=== PATIENT | female | born 1960 | race Two or more races ===

== ENCOUNTER 2020-10-19 13:06 | Outpatient (REF) | payer OTHER, SELFPAY ==
--- NOTE | ~2020-10-19 | XR_ITS ---
EXAMINATION: XR SHOULDER, RIGHT CLINICAL INFORMATION: Shoulder lesion COMPARISON: None TECHNIQUE: AP external rotation, Grashey, scapular Y, and axillary views of the right shoulder. FINDINGS: The bones and soft tissues are normal. No fracture. Glenohumeral and acromioclavicular alignment is anatomic with normal joint space. There is faint soft tissue calcification adjacent to the greater tuberosity. XR/XR shoulder RT min 2V IMPRESSION: Faint soft tissue calcification adjacent to the greater tuberosity otherwise unremarkable exam.
== END 2020-10-19 13:07 | disposition home or self-care (01) ==
LOC: HO.XRAY 13:06
PROVIDERS: PCP Internal Medicine; Visit Provider Internal Medicine
DX: M75.81 Other shoulder lesions, right shoulder (principal)
CPT/HCPCS: 73030

== ENCOUNTER 2020-12-20 14:37 | Outpatient (RCR) | payer OTHER, SELFPAY ==
[2020-12-20 15:14] VITALS: BP 170/80
== END 2021-01-13 11:26 | disposition other institution (70) ==
LOC: HO.PT 14:37
PROVIDERS: PCP Internal Medicine; Visit Provider Internal Medicine
DX: M75.81 Other shoulder lesions, right shoulder (principal)
CPT/HCPCS: 97112; 97161

== ENCOUNTER 2020-12-28 11:21 | Emergency (ER) | payer OTHER, SELFPAY ==
[2020-12-28] VITALS (7 sets, daily range): BP systolic 137–174; BP diastolic 60–82; PULSE 79–86; RESP 16–17; TEMP 36.9; O2SAT 98–100; BMI 21.2
--- NOTE | ~2020-12-28 | US_ITS ---
EXAMINATION: US ABDOMEN LIMITED CLINICAL INFORMATION: Right upper quadrant epigastric pain, nausea, vomiting. COMPARISON: None TECHNIQUE: Real-time imaging of the right upper quadrant abdominal viscera. FINDINGS: PANCREAS: The visualized pancreas is normal in size and contour and echogenicity. There is no pancreatic ductal distention or visible retroperitoneal effusion. Portion pancreatic head and tail obscured by bowel gas and not imaged. LIVER: The liver is normal in size and smooth in contour. The hepatic parenchyma areas increased in echogenicity suggesting hepatic steatosis. There is no focal hepatic parenchymal lesion or intrahepatic ductal dilatation. Doppler shows portal flow towards the liver. GALLBLADDER: The near gallbladder wall is partly visible and within normal caliber. The near side gallbladder lumen is partly visible. The remainder of the gallbladder fossa shows scattered specular echoes with posterior shadowing. Findings suggest stone filled gallbladder. COMMON BILE DUCT: Normal in caliber measuring 0.5 cm in diameter. No visible ductal calculus. Distal duct is partly obscured by bowel gas. RIGHT KIDNEY: Normal. No hydronephrosis. No renal calculi or focal parenchymal lesions. The kidney measures 10.6 cm in maximum dimension. FREE FLUID: None. US/US abdomen limited IMPRESSION: Challenging sonographic evaluation of gallbladder. Findings suggest stone filled gallbladder. No ductal dilatation or ascites right upper quadrant.
--- NOTE | ~2020-12-28 | XR_ITS ---
EXAMINATION: XR CHEST CLINICAL INFORMATION: Chest pain COMPARISON: None TECHNIQUE: Portable upright AP view of the chest was obtained. FINDINGS: Lungs are clear. There is no pneumothorax, pleural reaction, airspace opacity, or effusion. The costophrenic sulci are clear. The heart is normal in size. The vascularity is normal. The hilar and mediastinal contours are normal. No definite visible acute bony abnormality. There is questionable fracture line or callus formation. This could represent old healed fracture. Recommend correlation with patient's symptoms and clinical exam. No free air beneath the diaphragms. XR/XR chest 1V IMPRESSION: 1. Lungs clear. No pneumothorax, infiltrate, or effusion. 2. No visible acute bony abnormality. Question healed left anterior lateral 5th/6th rib fracture. Clinically correlate.
--- NOTE | 2020-12-28 11:48 | ECG_ITS ---
Test Reason : CHEST PAIN Blood Pressure : / mmHG Vent. Rate : 079 BPM Atrial Rate : 079 BPM P-R Int : 150 ms QRS Dur : 076 ms QT Int : 378 ms P-R-T Axes : -04 012 035 degrees QTc Int : 433 ms Normal sinus rhythm Normal ECG No previous ECGs available Referred By: Generic ED Physician Electronically Signed By:Jair Irby
--- NOTE | 2020-12-28 11:56 | PC.NURSE ---
deay in ekg due to ekg being in use
[2020-12-28 11:59] LABS: MANUAL DIFF FLAG NO
[2020-12-28 12:02] LABS: Basophils Absolute Auto 0.1 X10*3/uL (0.0-0.2); Basophils Percent Auto 0.9 % (0-2); Eosinophils Absolute Auto 0.8 X10*3/uL (0.0-0.4); Eosinophils Percent Auto 7.5 % (0-4); Hematocrit 35.1 % (37-47); Hemoglobin 11.1 g/dl (12.0-16.0); Imm Gran Abs Auto 0.03 X10*3/uL (0.00-0.03); Imm Gran Pct Auto 0.3 % (0.0-0.4); Lymphocytes Absolute Auto 3.3 X10*3/uL (1.2-4.9); Lymphocytes Percent Auto 31.5 % (20-40); Mean Corpuscular HGB Conc 31.6 g/dl (31.0-35.0); Mean Corpuscular Hemoglobin 26.1 pg (27.0-33.0); Mean Corpuscular Volume 82.4 fL (80-98); Mean Platelet Volume 9.7 fL (9.4-12.3); Monocytes Absolute Auto 0.6 X10*3/uL (0.1-1.2); Monocytes Percent Auto 5.7 % (2-11); Neutrophils Absolute Auto 5.6 X10*3/uL (2.0-8.3); Neutrophils Percent Auto 54.1 % (45-73); Platelet Count 516 X10*3/uL (160-400); Red Blood Count 4.26 X10*6/uL (4.20-5.50); Red Cell Distribution Width 13.1 % (11.0-16.0); White Blood Count 10.3 X10*3/uL (4.8-10.8)
[2020-12-28 12:29] LABS: Anion Gap 14 (12-20); Blood Urea Nitrogen 24 mg/dL (9-16); Calcium 10.4 mg/dL (8.4-10.2); Carbon Dioxide 27 mmol/L (22-29); Chloride 100 mmol/L (96-108); Creatinine Clr Calc Pharmacy 54.2; Estimated Glomerular Filt Rate > 60; Glucose Random 282 mg/dL (60-115); Potassium 4.8 mmol/L (3.3-5.1); Sodium 136 mmol/L (135-145)
[2020-12-28 12:35] LABS: Troponin-I High Sensitivity < 3.5 ng/L (<3.5-17.0)
[2020-12-28] MEDS: ondansetron HCL 4 MG/2 ML VIAL IVPUSH (13:26)
[2020-12-28 13:36] LABS: Alanine Aminotransferase 12 U/L (0-31); Albumin Level 4.3 g/dL (3.5-5.0); Alkaline Phosphatase 98 U/L (39-117); Aspartate Amino Transferase 13 U/L (5-31); Bilirubin Direct 0.2 mg/dL (0.0-0.5); Bilirubin Total 0.5 mg/dL (0.0-1.0); Lipase 39 U/L (8-78); Magnesium 1.5 mg/dL (1.6-2.6); Total Protein 7.7 g/dL (6.5-8.0)
--- NOTE | 2020-12-28 14:39 | ED_ITS ---
HPI - Chest Pain General Chief Complaint: Chest Pain <KEANU Maria Last Filed: 12/28/20 17:37> Stated Complaint: hbp, hbs, vomiting <KEANU Maria Last Filed: 12/28/20 17:37> Time Seen by Provider: 12/28/20 12:51 <KEANU Maria Last Filed: 12/28/20 17:37> Source: patient <KEANU Maria Last Filed: 12/28/20 17:37> Mode of arrival: ambulatory <KEANU Maria Last Filed: 12/28/20 17:37> History of Present Illness HPI narrative: 60-year-old female with no significant past medical history presenting to the ED complaining chest tightness, epigastric abdominal pain, nausea, vomiting, generalized fatigue/weakness since yesterday. Reports multiple episodes of emesis after eating. Denies fever, chills, SOB, diarrhea/constipation, LE edema, recent travel, dysuria, hematuria, history of blood clots <KEANU Maria Last Filed: 12/28/20 17:37> MD complaint: chest pain <KEANU Maria Last Filed: 12/28/20 17:37> Related Data Home Medications: Home Medications Medication Instructions Recorded Confirmed acetaminophen 650 mg PO Q8H PRN 12/28/20 12/28/20 albuterol sulfate [Ventolin HFA] 2 puff INHALATION Q4-6H PRN 12/28/20 12/28/20 atorvastatin 80 mg PO DAILY 12/28/20 12/28/20 fluoxetine 40 mg PO QAM 12/28/20 12/28/20 fluticasone propionate 1 spray INTRANASAL DAILY 12/28/20 12/28/20 glipizide 10 mg PO BID 12/28/20 12/28/20 metformin 1,000 mg PO BID 12/28/20 12/28/20 prazosin 1 mg PO BEDTIME 12/28/20 12/28/20 <KEANU Maria Last Filed: 12/28/20 17:37> Allergies/Adverse Reactions: Allergies Allergy/AdvReac Type Severity Reaction Status Date / Time No Known Allergies Allergy Verified 12/28/20 11:48 [No Known Allergies*] <KEANU Maria - Last Filed: 12/28/20 17:37> Review of Systems Review of Systems: Constitutional: No Fever, No Chills, No Night Sweats, + Fatigue, + Malaise ENT/Mouth: No Ear Pain,No Sinus Pain, No sore throat, No Rhinorrhea Eyes: No Eye Pain, No Vision Changes Cardiovascular: + Chest Pain, No SOB, No Dyspnea on Exertion, No Orthopnea, No Edema Respiratory: No Cough, No Sputum, No Dyspnea Gastrointestinal: +Nausea, + Vomiting, No Diarrhea, No Constipation, + Abdominal pain Genitourinary: No Dysuria, No Urinary Frequency, No Hematuria, No Flank Pain Musculoskeletal: No joint pain, No Myalgias, No Joint Swelling Skin: No rash Neuro: + Weakness, No Numbness, No Paresthesias, No Headache <KEANU Maria Last Filed: 12/28/20 17:37> Yes all other systems are reviewed and are negative <KEANU Maria Last Filed: 12/28/20 17:37> [facility] Past Medical History Attestation statement: The following information was validated with the patient. <KEANU Maria - Last Filed: 12/28/20 17:37> Social History Social History: Social History Alcohol intake: current Alcohol intake frequency: holidays/special occasions only Patient Tobacco Use Status: Never used Tobacco Use of substances other than those prescribed or required for medical reasons: No Advance Directives: No Advance Directives Information Provided: No Patient : No <KEANU Maria Last Filed: 12/28/20 17:37> Physical Exam Vital Signs: Vital Signs: Last Vital Signs Temp 98.4 F 12/28/20 18:09 Pulse 82 12/28/20 18:09 Resp 17 12/28/20 18:09 BP 150/67 H 12/28/20 18:09 Pulse Ox 98 12/28/20 18:09 Body Mass Index 21.2 <KEANU Maria Last Filed: 12/28/20 17:37> Vital Signs: Last Vital Signs Temp 98.4 F 12/28/20 18:09 Pulse 82 12/28/20 18:09 Resp 17 12/28/20 18:09 BP 150/67 H 12/28/20 18:09 Pulse Ox 98 12/28/20 18:09 Body Mass Index 21.2 <ZaidaMARICARMEN Valenzuela - Last Filed: 12/28/20 19:01> Const: General: cooperative, healthy appearing and no acute distress <KEANU Maria - Last Filed: 12/28/20 17:37> Orientation/consciousness: patient oriented x3 <KEANU Maria - Last Filed: 12/28/20 17:37> Limitations: no limitations <KEANU Maria - Last Filed: 12/28/20 17:37> HENMT: Head: Yes normal to inspection <KEANU Maria - Last Filed: 12/28/20 17:37> Ears: hearing grossly normal bilaterally <KEANU Maria - Last Filed: 17:37> General nose exam: Normal external nose present <KEANU Maria - Last Filed: 12/28/20 17:37> Face and sinus: Yes normal facial exam <KEANU Maria - Last Filed: 12/28/20 17:37> Eyes: General: appearance normal, both eyes and all related structures <Fernanda Sherman PA - Last Filed: 12/28/20 17:37> EOM: EOMs intact bilaterally <KEANU Maria - Last Filed: 12/28/20 17:37> Neck: Neck: Yes normal visual inspection and Yes no meningeal signs <KEANU Maria - Last Filed: 12/28/20 17:37> Resp: Effort & Inspection: normal respiratory effort <KEANU Maria - Last Filed: 12/28/20 17:37> Auscultation: clear to auscultation bilaterally <Fernanda Sherman PA - Last Filed: 12/28/20 17:37> Cardio: Rate: regular rate <KEANU Maria - Last Filed: 12/28/20 17:37> Heart sounds: S1 normal heart sound present and S2 normal heart sound present <KEANU Maria - Last Filed: 12/28/20 17:37> GI: Inspection: Yes normal to inspection <KEANU Maria - Last Filed: 12/28/20 17:37> Palpation (GI): Soft to palpation, Tenderness to palpation present (GI) in the epigastrum and in the RUQ, no guarding and not rigid <KEANU Maria - Last Filed: 12/28/20 17:37> : General: Yes no CVA tenderness <KEANU Maria - Last Filed: 12/28/20 17:37> Back/Spine/Pelvis: Back: no CVA tenderness <KEANU Maria - Last Filed: 12/28/20 17:37> Skin: Rashes: no rashes <KEANU Maria - Last Filed: 12/28/20 17:37> Wounds: no wounds <KEANU Maria - Last Filed: 12/28/20 17:37> Neuro: General: patient oriented x3 and no meningeal signs <KEANU Maria - Last Filed: 12/28/20 17:37> Gait exam (Neuro): Normal gait present <KEANU Maria - Last Filed: 12/28/20 17:37> Extrem: General: Yes normal to inspection and Yes no pedal edema <KEANU Maria Last Filed: 12/28/20 17:37> Course Course Course Narrative: -no leukocytosis, H&H stable, BUN 24, magnesium 1.5 p.o. repletion given, troponin negative XR chest 1V IMPRESSION: 1. Lungs clear. No pneumothorax, infiltrate, or effusion. 2. No visible acute bony abnormality. Question healed left anterior lateral 5th/6th rib fracture. Clinically correlate. -1644--US abdomen limited IMPRESSION: Challenging sonographic evaluation of gallbladder. Findings suggest stone filled gallbladder. No ductal dilatation or ascites right upper quadrant. >> surgery Dr. Feliz consulted -1700--ED care transferred to KEANU Hernandez pending p.o. challenge -Dr. Feliz evaluated patient in the ED, will p.o. challenge if patient tolerates plan to DC home and have follow-up outpatient office in the next couple days <KEANU Maria - Last Filed: 12/28/20 17:37> Reevaluation(s) Reevaluation #1: Patient tolerating p.o., will discharge as per KEANU Harden <Zaida Cuellar PA-C - Last Filed: 12/28/20 19:01> Time: 19: <Zaida Cuellar PA-C - Last Filed: 12/28/20 19:01> MDM - Chest Pain MDM Narrative Medical decision making narrative: 60-year-old female with no significant past medical history presenting to the ED complaining chest tightness, epigastric abdominal pain, nausea, vomiting, generalized fatigue/weakness since yesterday. On exam vital signs stable, NAD, well appearing, lungs CTA, abdomen soft with epigastric/RUQ TTP, no rebound or guarding, no CVAT, no LE edema or calf tenderness. Rule out ACS vs cholecystitis/cholelithiasis vs pancreatitis. Lower concern for appendicitis/ diverticulitis or UTI. Unlikely PE Plan: EKG, labs, UA, CXR, abdomen ultrasound, reassess <KEANU Maria - Last Filed: 12/28/20 17:37> Lab Data Result diagrams: : 12/28/20 11:52 12/28/20 11:52 <KEANU Maria - Last Filed: 12/28/20 17:37> Labs: Lab Results 12/28/20 12/28/20 12/28/20 Range/Units 11:52 11:52 11:52 WBC 10.3 (4.8-10.8) X10*3/uL RBC 4.26 (4.20-5.50) X10*6/uL Hgb 11.1 L (12.0-16.0) g/dl Hct 35.1 L (37-47) % MCV 82.4 (80-98) fL MCH 26.1 L (27.0-33.0) pg MCHC 31.6 (31.0-35.0) g/dl RDW 13.1 (11.0-16.0) % Plt Count 516 H (160-400) X10*3/uL MPV 9.7 (9.4-12.3) fL Immature Gran % (Auto) 0.3 (0.0-0.4) % Neut % (Auto) 54.1 (45-73) % Lymph % (Auto) 31.5 (20-40) % [place] % (Auto) 5.7 (2-11) % Eos % (Auto) 7.5 H (0-4) % Baso % (Auto) 0.9 (0-2) % Lymph # (Auto) 3.3 (1.2-4.9) X10*3/uL [place] # (Auto) 0.6 (0.1-1.2) X10*3/uL Eos # (Auto) 0.8 H (0.0-0.4) X10*3/uL Baso # (Auto) 0.1 (0.0-0.2) X10*3/uL Abs Immat Gran (auto) 0.03 (0.00-0.03) X10*3/uL Absolute Neuts (auto) 5.6 (2.0-8.3) X10*3/uL Absolute Nucleated RBC 0.000 (0.0-0.012) X10*3/uL Nucleated RBC % (auto) 0.0 (0.0-0.2) /100WBC Sodium 136 (135-145) mmol/L Potassium 4.8 (3.3-5.1) mmol/L Chloride 100 (96-108) mmol/L Carbon Dioxide 27 (22-29) mmol/L Anion Gap 14 (12-20) BUN 24 H (9-16) mg/dL Creatinine 0.90 (0.5-1.4) mg/dL Estim Creat Clear Calc 54.2 Estimated GFR > 60 Random Glucose 282 H (60-115) mg/dL Calcium 10.4 H (8.4-10.2) mg/dL Magnesium 1.5 L (1.6-2.6) mg/dL Total Bilirubin 0.5 (0.0-1.0) mg/dL Direct Bilirubin 0.2 (0.0-0.5) mg/dL AST 13 (5-31) U/L ALT 12 (0-31) U/L Alkaline Phosphatase 98 (39-117) U/L Troponin I High Sens < 3.5 (<3.5-17.0) ng/L Total Protein 7.7 (6.5-8.0) g/dL Albumin 4.3 (3.5-5.0) g/dL Lipase 39 (8-78) U/L COVID-19 (K[facility]) (Negative) COVID-19 Clin Com 12/28/20 12/28/20 Range/Units 15:52 18:32 WBC (4.8-10.8) X10*3/uL RBC (4.20-5.50) X10*6/uL Hgb (12.0-16.0) g/dl Hct (37-47) % MCV (80-98) fL MCH (27.0-33.0) pg MCHC (31.0-35.0) g/dl RDW (11.0-16.0) % Plt Count (160-400) X10*3/uL MPV (9.4-12.3) fL Immature Gran % (Auto) (0.0-0.4) % Neut % (Auto) (45-73) % Lymph % (Auto) (20-40) % [place] % (Auto) (2-11) % Eos % (Auto) (0-4) % Baso % (Auto) (0-2) % Lymph # (Auto) (1.2-4.9) X10*3/uL [place] # (Auto) (0.1-1.2) X10*3/uL Eos # (Auto) (0.0-0.4) X10*3/uL Baso # (Auto) (0.0-0.2) X10*3/uL Abs Immat Gran (auto) (0.00-0.03) X10*3/uL Absolute Neuts (auto) (2.0-8.3) X10*3/uL Absolute Nucleated RBC (0.0-0.012) X10*3/uL Nucleated RBC % (auto) (0.0-0.2) /100WBC Sodium (135-145) mmol/L Potassium (3.3-5.1) mmol/L Chloride (96-108) mmol/L Carbon Dioxide (22-29) mmol/L Anion Gap (12-20) BUN (9-16) mg/dL Creatinine (0.5-1.4) mg/dL Estim Creat Clear Calc Estimated GFR Random Glucose (60-115) mg/dL Calcium (8.4-10.2) mg/dL Magnesium (1.6-2.6) mg/dL Total Bilirubin (0.0-1.0) mg/dL Direct Bilirubin (0.0-0.5) mg/dL AST (5-31) U/L ALT (0-31) U/L Alkaline Phosphatase (39-117) U/L Troponin I High Sens (<3.5-17.0) ng/L Total Protein (6.5-8.0) g/dL Albumin (3.5-5.0) g/dL Lipase (8-78) U/L COVID-19 ([facility]) Negative Negative (Negative) COVID-19 Clin Com See Note See Note <KEANU Maria - Last Filed: 12/28/20 17:37> Lab Results 12/28/20 12/28/20 12/28/20 Range/Units 11:52 11:52 11:52 WBC 10.3 (4.8-10.8) X10*3/uL RBC 4.26 (4.20-5.50) X10*6/uL Hgb 11.1 L (12.0-16.0) g/dl Hct 35.1 L (37-47) % MCV 82.4 (80-98) fL MCH 26.1 L (27.0-33.0) pg MCHC 31.6 (31.0-35.0) g/dl RDW 13.1 (11.0-16.0) % Plt Count 516 H (160-400) X10*3/uL MPV 9.7 (9.4-12.3) fL Immature Gran % (Auto) 0.3 (0.0-0.4) % Neut % (Auto) 54.1 (45-73) % Lymph % (Auto) 31.5 (20-40) % [place] % (Auto) 5.7 (2-11) % Eos % (Auto) 7.5 H (0-4) % Baso % (Auto) 0.9 (0-2) % Lymph # (Auto) 3.3 (1.2-4.9) X10*3/uL [place] # (Auto) 0.6 (0.1-1.2) X10*3/uL Eos # (Auto) 0.8 H (0.0-0.4) X10*3/uL Baso # (Auto) 0.1 (0.0-0.2) X10*3/uL Abs Immat Gran (auto) 0.03 (0.00-0.03) X10*3/uL Absolute Neuts (auto) 5.6 (2.0-8.3) X10*3/uL Absolute Nucleated RBC 0.000 (0.0-0.012) X10*3/uL Nucleated RBC % (auto) 0.0 (0.0-0.2) /100WBC Sodium 136 (135-145) mmol/L Potassium 4.8 (3.3-5.1) mmol/L Chloride 100 (96-108) mmol/L Carbon Dioxide 27 (22-29) mmol/L Anion Gap 14 (12-20) BUN 24 H (9-16) mg/dL Creatinine 0.90 (0.5-1.4) mg/dL Estim Creat Clear Calc 54.2 Estimated GFR > 60 Random Glucose 282 H (60-115) mg/dL Calcium 10.4 H (8.4-10.2) mg/dL Magnesium 1.5 L (1.6-2.6) mg/dL Total Bilirubin 0.5 (0.0-1.0) mg/dL Direct Bilirubin 0.2 (0.0-0.5) mg/dL AST 13 (5-31) U/L ALT 12 (0-31) U/L Alkaline Phosphatase 98 (39-117) U/L Troponin I High Sens < 3.5 (<3.5-17.0) ng/L Total Protein 7.7 (6.5-8.0) g/dL Albumin 4.3 (3.5-5.0) g/dL Lipase 39 (8-78) U/L COVID-19 ([facility]) (Negative) COVID-19 Clin Com 12/28/20 12/28/20 Range/Units 15:52 18:32 WBC (4.8-10.8) X10*3/uL RBC (4.20-5.50) X10*6/uL Hgb (12.0-16.0) g/dl Hct (37-47) % MCV (80-98) fL MCH (27.0-33.0) pg MCHC (31.0-35.0) g/dl RDW (11.0-16.0) % Plt Count (160-400) X10*3/uL MPV (9.4-12.3) fL Immature Gran % (Auto) (0.0-0.4) % Neut % (Auto) (45-73) % Lymph % (Auto) (20-40) % [place] % (Auto) (2-11) % Eos % (Auto) (0-4) % Baso % (Auto) (0-2) % Lymph # (Auto) (1.2-4.9) X10*3/uL [place] # (Auto) (0.1-1.2) X10*3/uL Eos # (Auto) (0.0-0.4) X10*3/uL Baso # (Auto) (0.0-0.2) X10*3/uL Abs Immat Gran (auto) (0.00-0.03) X10*3/uL Absolute Neuts (auto) (2.0-8.3) X10*3/uL Absolute Nucleated RBC (0.0-0.012) X10*3/uL Nucleated RBC % (auto) (0.0-0.2) /100WBC Sodium (135-145) mmol/L Potassium (3.3-5.1) mmol/L Chloride (96-108) mmol/L Carbon Dioxide (22-29) mmol/L Anion Gap (12-20) BUN (9-16) mg/dL Creatinine (0.5-1.4) mg/dL Estim Creat Clear Calc Estimated GFR Random Glucose (60-115) mg/dL Calcium (8.4-10.2) mg/dL Magnesium (1.6-2.6) mg/dL Total Bilirubin (0.0-1.0) mg/dL Direct Bilirubin (0.0-0.5) mg/dL AST (5-31) U/L ALT (0-31) U/L Alkaline Phosphatase (39-117) U/L Troponin I High Sens (<3.5-17.0) ng/L Total Protein (6.5-8.0) g/dL Albumin (3.5-5.0) g/dL Lipase (8-78) U/L COVID-19 ([facility]) Negative Negative (Negative) COVID-19 Clin Com See Note See Note <Zaida Cuellar PA-C - Last Filed: 12/28/20 19:01> Discharge Plan Discharge Clinical Impression: Cholelithiasis <KEANU Maria - Last Filed: 12/28/20 17:37> Patient Disposition: Home, Self-Care <KEANU Maria - Last Filed: 12/28/20 17:37> Instructions: Gallstones (ED) <KEANU Maria - Last Filed: 12/28/20 17:37> Additional Instructions: You have a gallbladder full of stones. It is important for you to follow- up with a general surgeon. If her symptoms persist or worsen, pain becomes unbearable, you are unable to eat or drink, or developed fever please return to the ED immediately. You need to follow-up with a general surgeon in the next couple days. Tiene la ves?cula biliar llena de piedras. Es importante que realice un seguimiento con un cirujano general. Si camilla s?ntomas persisten o empeoran, el dolor se vuelve insoportable, no puede comer ni beber, o tiene fiebre, regrese al servicio de urgencias de inmediato. Debe hacer un seguimiento con un cirujano general en los pr?ximos d?as. <KEANU Maria - Last Filed: 12/28/20 17:37> Prescriptions: No Action fluoxetine 40 mg capsule 40 mg PO QAM RF: 0 atorvastatin 80 mg tablet 80 mg PO DAILY RF: 0 prazosin 1 mg capsule 1 mg PO BEDTIME RF: 0 glipizide 10 mg tablet 10 mg PO BID RF: 0 acetaminophen 650 mg tablet extended release 650 mg PO Q8H PRN (Reason: Pain) RF: 0 metformin 1,000 mg tablet 1,000 mg PO BID RF: 0 albuterol sulfate [Ventolin HFA] 90 mcg/actuation HFA aerosol inhaler 2 puff inhalation Q4-6H PRN (Reason: Shortness Of Breath) RF: 0 fluticasone propionate 50 mcg/actuation spray,suspension 1 spray intranasal DAILY RF: 0 <KEANU Maria Last Filed: 12/28/20 17:37> Referrals: Fausto Feliz MD [Physician] - 2 days <EKANU Maria - Last Filed: 12/28/20 17:37>
[2020-12-28] MEDS: Lidocaine HCl Viscous 2 % 15 ML SOLUTION MUCOUS MEM (15:35)
[2020-12-28] MEDS: Magnesium Hydrox/Alum Hydrox 30 ML ORAL.SUSP PO (15:35)
[2020-12-28] MEDS: Magnesium Oxide 400 MG TABLET PO (15:35)
[2020-12-28] MEDS: Famotidine/PF 20 MG/2 ML VIAL IVPUSH (15:35)
[2020-12-28] MEDS: 0.9 % Sodium Chloride 1,000 ML 999 ML IVCONT (15:36)
[2020-12-28 16:16] LABS: COVID-19 Test Negative (Negative)
--- NOTE | 2020-12-28 17:41 | HE.PHANOTE ---
Pharmacy Consult ? Medication Reconciliation Pharmacy has completed the medication reconciliation and the following issue requires provider intervention: the patient states that she takes the prazosin about 3 times a week depending on how she feels. She also states that she takes her atorvastatin every other day because she doesn't feel like taking it. Angella Vigil, PharmD [phone]
[2020-12-28 18:51] LABS: COVID-19 Test Negative (Negative); IDNOW Serial# 9DD0AD1C
== END 2020-12-28 19:42 | disposition home or self-care (01) ==
PROVIDERS: Physician Assistant; Emergency Provider Internal Medicine; PCP Internal Medicine
DX: K80.00 Calculus of gallbladder with acute cholecystitis without obstruction (principal); R07.9 Chest pain, unspecified; R11.10 Vomiting, unspecified; R10.13 Epigastric pain; Z20.822 Contact with and (suspected) exposure to COVID-19; T46.6X6A Underdosing of antihyperlipidemic and antiarteriosclerotic drugs, initial encounter; Z91.128 Patient's intentional underdosing of medication regimen for other reason; Y92.009 Unspecified place in unspecified non-institutional (private) residence as the place of occurrence of the external cause; E11.9 Type 2 diabetes mellitus without complications; I10 Essential (primary) hypertension; Z79.84 Long term (current) use of oral hypoglycemic drugs; Z79.02 Long term (current) use of antithrombotics/antiplatelets; Z79.899 Other long term (current) drug therapy
CPT/HCPCS: 36415; 71045; 76705; 80048; 80076; 83690; 83735; 84484; 85025; 87635; 93005; 96361; 96374; 96375; 99285; J2405

== ENCOUNTER → 2020-12-29 10:07 | Outpatient (BNVA) | payer OTHER, SELFPAY | PROVIDERS: PCP Internal Medicine; Referring Provider Internal Medicine; Visit Provider Surgery | DX: K80.00 Calculus of gallbladder with acute cholecystitis without obstruction (principal) | CPT/HCPCS: 99202 ==

== ENCOUNTER 2021-01-11 09:13 | Day surgery (SDC) | payer OTHER, SELFPAY ==
[2021-01-04 20:17] VITALS: BMI 21.7
--- NOTE | 2021-01-09 12:57 | HO.ANESPROP2 ---
Documented by User: Ericka Dotson 01/09/21 12:58 HPI - Anesthesia Eval Consult details Narrative: 60yo F for Cholecystectomy Laparoscopic,poss open PMFSH Active Problems Active Problems: All Active Problems (Updated 01/04/21 @ 20:17 by Katiuska Mathews RN) Cholecystitis, acute with cholelithiasis (Acute) Past Medical History Medical History Arthritis Asthma Back pain Depression Diabetes mellitus Hypercholesterolemia Peripheral neuropathy Family History Family History Father Lung cancer Prostate cancer Emphysema lung Surgical History Surgical History H/O tubal ligation History of colonoscopy Social History Social History Alcohol intake: current Alcohol intake frequency: holidays/special occasions only Patient Tobacco Use Status: Never used Tobacco Use of substances other than those prescribed or required for medical reasons: No Are you DNR?: No Advance Directives: No Advance Directives Information Provided: No Advance Directives on File: No Meds Allergies Allergy/AdvReac Type Severity Reaction Status Date / Time No Known Allergies Allergy Verified 01/04/21 20:15 [No Known Allergies*] Home Medications Medication Instructions Recorded Confirmed Last Taken Type acetaminophen 650 mg PO Q8H PRN 12/28/20 01/04/21 12/27/20 History albuterol sulfate [Ventolin HFA] 2 puff INHALATION Q4-6H PRN 12/28/20 01/04/21 12/24/20 History atorvastatin 80 mg PO DAILY 12/28/20 01/04/21 Unknown History fluoxetine 40 mg PO QAM 12/28/20 01/04/21 12/27/20 History fluticasone propionate 1 spray INTRANASAL DAILY 12/28/20 01/04/21 Unknown History glipizide 10 mg PO BID 12/28/20 01/04/21 12/27/20 History metformin 1,000 mg PO BID 12/28/20 01/04/21 12/27/20 History prazosin 1 mg PO BEDTIME 12/28/20 01/04/21 Unknown History ondansetron HCl 4 mg tablet 4 mg PO Q4-6H PRN 12/29/20 12/29/20 Unknown History Exam Exam Date and Time: January 09, 2021 1257 Height,Weight and Vital Signs: Height 5 ft 3 in Weight 55.792 kg Pertinent Lab Results Pertinent Lab Results: Laboratory Tests 12/28/20 12/28/20 11:52 11:52 WBC 10.3 Hgb 11.1 L Hct 35.1 L Plt Count 516 H Sodium 136 Potassium 4.8 Chloride 100 Carbon Dioxide 27 BUN 24 H Creatinine 0.90 Assessment and Plan Assessment Anesthesia Assessment: Chart Reviewed Documented by User: Susan Simon 01/11/21 09:30 PMFSH Past Medical History Medical History Arthritis Asthma Back pain Depression Diabetes mellitus Hypercholesterolemia Peripheral neuropathy Family History Family History Father Lung cancer Prostate cancer Emphysema lung Surgical History Surgical History H/O tubal ligation History of colonoscopy Social History Social History Alcohol intake: current Alcohol intake frequency: holidays/special occasions only Patient Tobacco Use Status: Never used Tobacco Use of substances other than those prescribed or required for medical reasons: No Are you DNR?: No Advance Directives: No Advance Directives Information Provided: No Advance Directives on File: No Meds Allergies Allergy/AdvReac Type Severity Reaction Status Date / Time No Known Allergies Allergy Verified 01/04/21 20:15 [No Known Allergies*] Home Medications Medication Instructions Recorded Confirmed Last Taken Type acetaminophen 650 mg PO Q8H PRN 12/28/20 01/04/21 12/27/20 History albuterol sulfate [Ventolin HFA] 2 puff INHALATION Q4-6H PRN 12/28/20 01/04/21 12/24/20 History atorvastatin 80 mg PO DAILY 12/28/20 01/04/21 Unknown History fluoxetine 40 mg PO QAM 12/28/20 01/04/21 12/27/20 History fluticasone propionate 1 spray INTRANASAL DAILY 12/28/20 01/04/21 Unknown History glipizide 10 mg PO BID 12/28/20 01/04/21 12/27/20 History metformin 1,000 mg PO BID 12/28/20 01/04/21 12/27/20 History prazosin 1 mg PO BEDTIME 12/28/20 01/04/21 Unknown History ondansetron HCl 4 mg tablet 4 mg PO Q4-6H PRN 12/29/20 12/29/20 Unknown History Exam Airway Mallampati Class: II TM Dist: >3cm Neck ROM: Full Denture: Lower Partial: Upper
[2021-01-11] VITALS (13 sets, daily range): BP systolic 117–185; BP diastolic 65–94; PULSE 81–100; RESP 16–18; TEMP 36.3–36.4; O2SAT 95–100
[2021-01-11] MEDS: Acetaminophen 325 MG TABLET 650 MG PO (09:19)
[2021-01-11] MEDS: Lactated Ringers 1,000 ML 100 ML IVCONT (09:19)
--- NOTE | 2021-01-11 09:42 | MHC.SHP ---
Pre-Procedural Eval Section A The patient is an INPATIENT: No Changes since office visit: Yes Patient answered all questions; No Cold of Flu in the past 2 weeks, No New Medical Problems and No Changes in Medication The History & Physical has been completed within 30 days and I have reviewed it.: Yes Section B Chief Complaint: calculus of gallbladder Allergies: Allergies Allergy/AdvReac Type Severity Reaction Status Date / Time No Known Allergies Allergy Verified 01/04/21 20:15 [No Known Allergies*] Plan Diagnosis/Plan: Unchanged I have reviewed the history and physical and performed a pertinent physical examination on my patient. No changes have occurred unless specified.
--- NOTE | 2021-01-11 11:20 | P.OP_ITS ---
Operative Note Operative Note Date of Service: 01/11/21 Narrative: Preoperative diagnosis: Acute cholecystitis, cholelithiasis Postoperative diagnosis: Same Procedure: Laparoscopic cholecystectomy Surgeon: Fausto Feliz MD Manager Retail Sales: No physician Anesthesia: General endotracheal Indications for procedure: 60-year-old female presenting with complaints of abdominal pain in the right upper quadrant found to be tender in the right upper quadrant. Workup with ultrasound of the abdomen revealed multiple gallstones within the gallbladder. Operative findings: Thickened gallbladder containing numerous gallstones extending down to the neck of the gallbladder. Specimen: Gallbladder Estimated blood loss: 5 mL Complications: None Procedure details: Patient was brought to the OR and placed in a supine position. After administering general anesthesia the patient's abdomen was prepped with ChloraPrep and draped in a sterile fashion. Local anesthesia consisting of 0.25% Sensorcaine with epinephrine was infiltrated in a periumbilical region. A 5 mm incision was made above the umbilicus in a transverse fashion. The Veress needle was then inserted while elevating abdominal cavity with towel clips. After positive drop test the abdomen was insufflated to a pressure of 15 mm of mercury. The Veress needle was then removed and a 5 mm trocar inserted. The camera was inserted in the abdomen explored. A 12 mm trocar was then placed in the epigastrium and two 5 mm trocars placed in the right upper quadrant. The patient was placed in reverse Trendelenburg positioning and rotated to the left. The gallbladder was grasped with the fundus and retracted cephalad. The infundibulum was then grasped and retracted away from the liver bed. The Dolphin dissected was then used to dissect the peritoneum off the infundibulum to reveal the junction with the cystic duct. Cystic artery was noted slightly medial and posterior to the cystic duct. After obtaining a critical view the cystic duct was doubly clipped and divided. The cystic artery was then doubly clipped and divided. A 2nd lateral branch of the cystic artery was identified and also doubly clipped and divided. The gallbladder was then dissected off the liver bed using electrocautery with an L hook. Hemostasis was assured all times using the electrocautery. When the gallbladder is completely dissected off the liver bed, the gallbladder was placed in an Endo-Catch bag and brought out through the epigastric incision. The gallbladder was sent to pathology for further examination. The abdomen was then re-examined. The liver bed was irrigated and suctioned dry. No bleeding or bile leak could be identified. CO2 was then evacuated and all trocars removed. Fascia was closed at the epigastric incision using a [id number] 0 Polysorb suture. Skin was closed in all incisions using a subcuticular 4 0 Polysorb suture. Sterile dressings consisting of Steri-Strips, 2 x 2 gauze, and Tegaderm were then applied. The patient tolerated the procedure well. Sponge instrument and needle counts reported as correct. The patient was transferred to PACU in stable condition.
[2021-01-11] MEDS: fentaNYL citrate/PF 100 MCG/2 ML VIAL 50 MCG IVPUSH ×2 (11:56→12:02)
[2021-01-11] MEDS: oxyCODONE HCl Immed Release 5 MG TABLET 10 MG PO (11:57)
[2021-01-12 08:03] LABS: Glucose, Whole Blood 211 mg/dL (60-115)
== END 2021-01-11 14:30 | disposition home or self-care (01) ==
PROVIDERS: PCP Internal Medicine; Visit Provider Surgery
PROC: 0FT44ZZ Resection of Gallbladder, Percutaneous Endoscopic Approach (ICD-10-PCS; CPT 47562; principal; 2021-01-11 10:40)
DX: K80.12 Calculus of gallbladder with acute and chronic cholecystitis without obstruction (principal); E11.9 Type 2 diabetes mellitus without complications; J45.909 Unspecified asthma, uncomplicated; Z79.84 Long term (current) use of oral hypoglycemic drugs; Z79.899 Other long term (current) drug therapy
CPT/HCPCS: 47562; 82947; 88304; J1100; J1885; J2250; J2405; J3010

== ENCOUNTER 2021-01-14 20:40 | Emergency (ER) | payer OTHER, SELFPAY ==
[2021-01-14 20:47] VITALS: BP 179/84; PULSE 102; RESP 18; TEMP 37.7; O2SAT 97
[2021-01-14 21:10] VITALS: BP 179/84; BP 190/100; PULSE 104; PULSE 105; RESP 17; TEMP 37.7; O2SAT 96; O2SAT 97; BMI 21.7
--- NOTE | 2021-01-14 21:12 | ED.NAVMDI ---
HPI - Nausea/Vomiting/Diarrhea General Chief complaint: Abdominal Pain Stated complaint: ABD PAIN AT SURGICAL SITE Time Seen by Provider: 01/14/21 21:11 Source: patient Mode of arrival: ambulatory Limitations: no limitations History of Present Illness HPI Narrative: Patient complaining nausea , vomiting and pain at the surgical site done laparoscopically for cholecystectomy on 01/11 patient vomited about 6-7 times denied any abdominal distension moving her bowels No fever or chills no urinary complaints Related Data Home Medications Medication Instructions Recorded Confirmed acetaminophen 650 mg PO Q8H PRN 12/28/20 01/04/21 albuterol sulfate [Ventolin HFA] 2 puff INHALATION Q4-6H PRN 12/28/20 01/04/21 atorvastatin 80 mg PO DAILY 12/28/20 01/04/21 fluoxetine 40 mg PO QAM 12/28/20 01/04/21 fluticasone propionate 1 spray INTRANASAL DAILY 12/28/20 01/04/21 glipizide 10 mg PO BID 12/28/20 01/04/21 metformin 1,000 mg PO BID 12/28/20 01/04/21 prazosin 1 mg PO BEDTIME 12/28/20 01/04/21 ondansetron HCl 4 mg tablet 4 mg PO Q4-6H PRN 12/29/20 12/29/20 Previous Rx's Medication Instructions Recorded oxycodone 5 mg PO Q6H PRN #15 tab 01/11/21 ondansetron 4 mg PO Q6-8H PRN #7 tab 01/14/21 Allergies Allergy/AdvReac Type Severity Reaction Status Date / Time No Known Allergies Allergy Verified 01/14/21 21:09 [No Known Allergies*] Review of Systems Review of Systems: Constitutional : No Weight loss, No Fever, No Chills ENT/Mouth : No sore throat, No Rhinorrhea Eyes: No Eye Pain, No Swelling Cardiovascular : No Chest Pain, no palpitations Respiratory : No Cough, No Sputum, no shortness of breath Gastrointestinal : + Nausea, + Vomiting, No Diarrhea, + abdominal Pain, no black stools Genitourinary : No Dysuria, No Urinary Frequency Musculoskeletal : No joint pain, No Myalgias, No Joint Swelling Skin : No Skin Lesions, No rash Neuro : No Weakness, No Numbness, No Dizziness, No Headache Psych : No Anxiety/Panic, No Depression Heme/Lymph: No Bruising, No Lymphadenopathy Endocrine : No Polyuria, No Polydipsia All other systems reviewed and are negative [facility] Past Medical History Medical History Arthritis Asthma Back pain Depression Diabetes mellitus Hypercholesterolemia Peripheral neuropathy Surgical History H/O tubal ligation History of colonoscopy Family History Family History Father Lung cancer Prostate cancer Emphysema lung Social History Social History Alcohol intake: current Alcohol intake frequency: holidays/special occasions only Patient Tobacco Use Status: Never used Tobacco Advance Directives: No Advance Directives Information Provided: Yes Physical Exam Vital Signs: Vital Signs: Last Vital Signs Temp 99.4 F 01/14/21 21:45 Pulse 99 01/14/21 21:45 Resp 18 01/14/21 21:45 BP 161/87 H 01/14/21 21:45 Pulse Ox 96 01/14/21 21:45 Body Mass Index 21.7 Appearance: Alert. Oriented X3. No acute distress. Eyes: PERRLA, No Nystagmus ENT: Pharynx normal. Oral Mucosa moist Neck: Normal inspection. Neck supple. CVS: Normal heart rate and rhythm. Pulses normal. Respiratory: No respiratory distress. Equal air entry bilateral, no wheezing/rales/rhonchi Abdomen: Soft , tenderness at the laparoscopic sites no bladder distention Bowel sounds are present, no mass palpable, no CVA tenderness Skin: Skin warm and dry. Normal skin color. Normal skin turgor. Extremities: No lower extremity edema. No calf tenderness Neuro: Oriented X 3. No motor deficit. No sensory deficit.No cerebellar signs , cranial nerves II-XII intact MDM - Nausea/Vomiting/Diarrhea MDM Narrative Medical decision making narrative: Patient with mild nausea vomiting with normal urine no significant abdominal tenderness responded to sublingual Zofran discharge patient home Lab Data Attestation: I reviewed the patient's lab results. Labs: Lab Results 01/14/21 01/14/21 Range/Units 21:18 22:03 POC Glucose 255 H (60-115) mg/dL Urine Color YELLOW Urine Appearance CLEAR Urine pH 7.0 (5.0-8.0) Ur Specific [place] 1.020 (1.005-1.025) Urine Protein 1+ H (NEG-TRACE) MG/DL Urine Glucose (UA) >=1000 H (NEG) MG/DL Urine Ketones 5 (NEG) MG/DL Urine Blood NEG (NEG) Urine Nitrite NEG (NEG) Ur Leukocyte Esterase NEG (NEG) Urine RBC 1-4 (0) /HPF Urine WBC 0-2 (0-4) /HPF Ur Squamous Epith Cells TRACE /LPF Urine Bacteria NONE /LPF Hyaline Casts 1-4 /LPF Urine Mucus TRACE /LPF Discharge Plan Discharge Clinical Impression: Vomiting Patient Disposition: Home, Self-Care Instructions: Acute Nausea and Vomiting (ED) Additional Instructions: Drink plenty of fluids Medicine for nausea as prescribed Follow with your PCP as needed Prescriptions: New ondansetron 4 mg tablet,disintegrating 4 mg PO Q6-8H PRN (Reason: nausea and vomiting) Qty: 7 RF: 0 No Action fluoxetine 40 mg capsule 40 mg PO QAM RF: 0 atorvastatin 80 mg tablet 80 mg PO DAILY RF: 0 prazosin 1 mg capsule 1 mg PO BEDTIME RF: 0 glipizide 10 mg tablet 10 mg PO BID RF: 0 acetaminophen 650 mg tablet extended release 650 mg PO Q8H PRN (Reason: Pain) RF: 0 metformin 1,000 mg tablet 1,000 mg PO BID RF: 0 albuterol sulfate [Ventolin HFA] 90 mcg/actuation HFA aerosol inhaler 2 puff inhalation Q4-6H PRN (Reason: Shortness Of Breath) RF: 0 fluticasone propionate 50 mcg/actuation spray,suspension 1 spray intranasal DAILY RF: 0 oxycodone 5 mg tablet 5 mg PO Q6H PRN (Reason: pain) Qty: 15 RF: 0 ondansetron HCl 4 mg tablet 4 mg PO Q4-6H PRN (Reason: Nausea) RF: 0 Interventions: ED Discharge Assessment Last Done: 01/14/21 22:17 Discharge Date/Time: 01/14/21 22:18
[2021-01-14 21:31] LABS: Glucose Urine UA >=1000 MG/DL (NEG); Leukocyte Esterase Urine NEG (NEG); Nitrite Urine NEG (NEG); Urine Blood NEG (NEG); Urine Ketones 5 MG/DL (NEG); Urine Protein 1+ MG/DL (NEG-TRACE)
[2021-01-14 21:34] LABS: Appearance Urine CLEAR; Color Urine YELLOW
[2021-01-14 21:45] VITALS: BP 161/87; PULSE 99; RESP 18; TEMP 37.4; O2SAT 96
[2021-01-14 22:04] LABS: Mucus Urine TRACE /LPF; Squamous Epithelial Cell Urine TRACE /LPF; WBC Urine 0-2 /HPF (0-4)
[2021-01-14 22:06] LABS: Glucose, Whole Blood 255 mg/dL (60-115)
== END 2021-01-14 22:18 | disposition home or self-care (01) ==
PROVIDERS: Emergency Provider Internal Medicine; PCP Internal Medicine
DX: R11.10 Vomiting, unspecified (principal); G89.18 Other acute postprocedural pain; E11.9 Type 2 diabetes mellitus without complications; J45.909 Unspecified asthma, uncomplicated; Z79.84 Long term (current) use of oral hypoglycemic drugs; Z79.899 Other long term (current) drug therapy
CPT/HCPCS: 81001; 82947; 99283; 99284

== ENCOUNTER → 2021-01-20 10:10 | Outpatient (BNVA) | payer OTHER, SELFPAY | PROVIDERS: PCP Internal Medicine; Referring Provider Internal Medicine; Visit Provider Surgery | DX: K80.00 Calculus of gallbladder with acute cholecystitis without obstruction (principal) | CPT/HCPCS: 99212 ==

== ENCOUNTER 2021-04-02 15:22 | Emergency (ER) | payer OTHER, SELFPAY ==
--- NOTE | ~2021-04-02 | XR_ITS ---
EXAMINATION: BILATERAL FOOT AND ANKLE CLINICAL INFORMATION: Fall. Pain. COMPARISON: None TECHNIQUE: 3 views of the bilateral feet and ankles FINDINGS: Right ankle: Bone alignment is normal. No fracture or dislocation is seen. The ankle mortise is normal. Soft tissues are normal. Right foot: Bone alignment is normal. No fracture or dislocation is seen. Joint spaces are normal. Soft tissues are normal. Left ankle: Bone alignment is normal. No fracture or dislocation is seen. The ankle mortise is normal. Soft tissues are normal. Left foot: There is a nondisplaced fracture through the base of the fifth metatarsal bone. No other fracture is seen. Joint spaces are normal. Soft tissues are normal. XR/XR foot LT min 3V IMPRESSION: Nondisplaced fracture through the base of the left fifth metatarsal bone.
--- NOTE | ~2021-04-02 | XR_ITS ---
EXAMINATION: XR KNEE, LEFT CLINICAL INFORMATION: Fall COMPARISON: None TECHNIQUE: Four views of the left knee. FINDINGS: Bones and soft tissues are normal. No fracture or joint effusion. Alignment is anatomic. Joint spaces are well maintained. No abnormal soft tissue calcification. XR/XR knee LT 4V IMPRESSION: Normal left knee.
--- NOTE | ~2021-04-02 | XR_ITS ---
EXAMINATION: BILATERAL FOOT AND ANKLE CLINICAL INFORMATION: Fall. Pain. COMPARISON: None TECHNIQUE: 3 views of the bilateral feet and ankles FINDINGS: Right ankle: Bone alignment is normal. No fracture or dislocation is seen. The ankle mortise is normal. Soft tissues are normal. Right foot: Bone alignment is normal. No fracture or dislocation is seen. Joint spaces are normal. Soft tissues are normal. Left ankle: Bone alignment is normal. No fracture or dislocation is seen. The ankle mortise is normal. Soft tissues are normal. Left foot: There is a nondisplaced fracture through the base of the fifth metatarsal bone. No other fracture is seen. Joint spaces are normal. Soft tissues are normal. XR/XR foot RT min 3V IMPRESSION: Nondisplaced fracture through the base of the left fifth metatarsal bone.
--- NOTE | ~2021-04-02 | XR_ITS ---
EXAMINATION: BILATERAL FOOT AND ANKLE CLINICAL INFORMATION: Fall. Pain. COMPARISON: None TECHNIQUE: 3 views of the bilateral feet and ankles FINDINGS: Right ankle: Bone alignment is normal. No fracture or dislocation is seen. The ankle mortise is normal. Soft tissues are normal. Right foot: Bone alignment is normal. No fracture or dislocation is seen. Joint spaces are normal. Soft tissues are normal. Left ankle: Bone alignment is normal. No fracture or dislocation is seen. The ankle mortise is normal. Soft tissues are normal. Left foot: There is a nondisplaced fracture through the base of the fifth metatarsal bone. No other fracture is seen. Joint spaces are normal. Soft tissues are normal. XR/XR ankle RT min 3V IMPRESSION: Nondisplaced fracture through the base of the left fifth metatarsal bone.
--- NOTE | ~2021-04-02 | XR_ITS ---
EXAMINATION: BILATERAL FOOT AND ANKLE CLINICAL INFORMATION: Fall. Pain. COMPARISON: None TECHNIQUE: 3 views of the bilateral feet and ankles FINDINGS: Right ankle: Bone alignment is normal. No fracture or dislocation is seen. The ankle mortise is normal. Soft tissues are normal. Right foot: Bone alignment is normal. No fracture or dislocation is seen. Joint spaces are normal. Soft tissues are normal. Left ankle: Bone alignment is normal. No fracture or dislocation is seen. The ankle mortise is normal. Soft tissues are normal. Left foot: There is a nondisplaced fracture through the base of the fifth metatarsal bone. No other fracture is seen. Joint spaces are normal. Soft tissues are normal. XR/XR ankle LT min 3V IMPRESSION: Nondisplaced fracture through the base of the left fifth metatarsal bone.
[2021-04-02 15:28] VITALS: BP 183/99; PULSE 99; RESP 18; TEMP 36.6; O2SAT 100; BMI 22.6
--- NOTE | 2021-04-02 16:52 | ED.FALL ---
HPI - Fall General Chief Complaint: Fall Stated Complaint: fall Time Seen by Provider: 04/02/21 16:05 Source: patient Mode of arrival: ambulatory Limitations: no limitations History of Present Illness HPI Narrative: 60-year-old female was at the grocery store and the floor was just drying from being cleaned and she slipped and fell landing on left side injuring her bilateral feet/ankles and left knee and since then has been having moderate pain. She denies head injury or loss of consciousness. She denies any symptoms prior to the fall. She reports only pain after the fall no other symptoms. She is not on any blood thinners. She denies any other injury complaints or concerns at this time. complaint: fall Onset (ago): minute(s) (Prior to arrival) Fall from: standing Fall witnessed: yes, by family Place fall occurred: other (At the grocery store) Loss of consciousness: none Prolonged down time: no Symptoms prior to fall: none Context: tripped/slipped Location of injury - extremities: left: knee and bilateral: ankle and foot Severity: moderate Quality: aching Associated symptoms (after fall): denies Related Data Home Medications Medication Instructions Recorded Confirmed acetaminophen 650 mg 650 mg PO Q8H PRN 12/28/20 01/04/21 tablet,extended release albuterol sulfate 90 mcg/actuation 2 puff INHALATION Q4-6H PRN 12/28/20 01/04/21 aerosol inhaler (Ventolin HFA) atorvastatin 80 mg tablet 80 mg PO DAILY 12/28/20 01/04/21 fluoxetine 40 mg capsule 40 mg PO QAM 12/28/20 01/04/21 fluticasone propionate 50 1 spray INTRANASAL DAILY 12/28/20 01/04/21 mcg/actuation nasal spray,suspension glipizide 10 mg tablet 10 mg PO BID 12/28/20 01/04/21 metformin 1,000 mg tablet 1,000 mg PO BID 12/28/20 01/04/21 prazosin 1 mg capsule 1 mg PO BEDTIME 12/28/20 01/04/21 Previous Rx's Medication Instructions Recorded docusate sodium 100 mg capsule 100 mg PO DAILY #30 cap 01/20/21 (Colace) ondansetron 4 mg disintegrating 4 mg PO Q6-8H PRN #20 tab 01/20/21 tablet acetaminophen 500 mg tablet 1,000 mg PO QID PRN #14 tab 04/02/21 (Tylenol Extra Strength) ibuprofen 800 mg tablet 600 mg PO Q8H PRN #14 tab 04/02/21 oxycodone 5 mg tablet 5 mg PO BID PRN #10 tab 04/02/21 Allergies Allergy/AdvReac Type Severity Reaction Status Date / Time No Known Allergies Allergy Verified 01/14/21 21:09 [No Known Allergies*] Review of Systems Review of Systems: Constitutional : No changes in activity, No lethargy, No recent prior head injury, No agitation, No increased fussiness ENT/Mouth : No Ear Pain, No Nasal discharge/drainage Eyes: No Eye Pain, No Swelling, No Redness, No Foreign Body, No Vision Changes Cardiovascular : No Chest Pain, No SOB Respiratory : No Cough Gastrointestinal : No Nausea, No Vomiting, No abdominal Pain Genitourinary : No Dysuria, No Urinary Frequency, No Urinary Incontinence, No Urgency, No Flank Pain Musculoskeletal : + joint pain, No neck stiffness, No back pain/injury Skin : No lacerations Neuro : No unsteady gait, No Paresthesias, No Loss of Consciousness, No altered mental status, No Headache Yes all other systems are reviewed and are negative [facility] Past Medical History Attestation statement: The following information was validated with the patient. Medical History Arthritis Asthma Back pain Depression Diabetes mellitus Hypercholesterolemia Peripheral neuropathy Surgical History H/O tubal ligation History of colonoscopy Family History Family History Father Lung cancer Prostate cancer Emphysema lung Social History Social History Alcohol intake: current Alcohol intake frequency: holidays/special occasions only Patient Tobacco Use Status: Never used Tobacco Advance Directives: No Advance Directives Information Provided: No Physical Exam Vital Signs: Vital Signs: Last Vital Signs Temp 97.8 F 04/02/21 15:28 Pulse 99 04/02/21 15:28 Resp 18 04/02/21 15:28 BP 183/99 H 04/02/21 15:28 Pulse Ox 100 04/02/21 15:28 Body Mass Index 22.6 vital signs have been reviewed as normal and appeared to be correct. Blood pressure hypertensive 183/99 Heart rate normal. Respiration rate normal. Temperature normal. Oxygen saturation normal. Appearance: Alert. Oriented X3. No acute distress. Head: Normal external exam. Normocephalic. Atraumatic. Eyes: PERRLA. EOMI. Conjunctiva and sclera normal. Eyelids normal. ENT: Pharynx normal. Uvula midline. Neck: Normal inspection. Neck supple. FROM. No adenopathy.No meningeal signs. CVS: Normal heart rate and rhythm. Heart sound normal. Pulses normal throughout. Respiratory: No respiratory distress. Painless inspiration. Back: Full range of motion noted. No rashes/lesion/induration/fluctuance or signs of infection noted. Skin: Skin warm and dry. Normal skin color. Normal skin turgor. No rashes/lesions/lacerations noted. Extremities: Patient with tenderness up patient to bilateral ankle joints although no joint effusion/ligamentous laxity or obvious injuries noted. Patient has full range of motion of bilateral ankle joints. Patient has tenderness palpation to left knee joint although no ligamentous laxity noted. Patient has full range of motion of the left knee joint. No joint effusion noted to the left knee. Patient with tenderness palpation to left and right foot and toes although no obvious deformities or ligamentous laxity noted. No joint effusion noted to bilateral feet. Otherwise all other extremities exhibit normal range of motion and are nontender. Neuro: Oriented X 3. No motor deficit. No sensory deficit. Reflexes normal. Normal steady gait. No focal neuro deficits noted. Vascular: + radial pulses/+ 2 distal pedal pulses/+2 dorsalis pedis b/l. Normal cap refill. No cyanosis noted to upper extremity nails and lower extremity toes nails. Course Course Course Narrative: 60-year-old female presenting to the ED after she had a mechanical fall at the grocery store where she slipped and fell on the wet floor injuring her left knee/bilateral ankles and bilateral feet and since then has been having pain. No head injury loss of consciousness. Not on any blood thinners. Denies any other symptoms. X-ray of left knee within normal limits no acute processes noted. X-ray of bilateral ankles within normal limits no acute processes are noted. X-ray of right foot within normal limits no acute processes are noted. X-ray of left foot revealed a nondisplaced fracture through the base of the left 5th metatarsal bone no other acute processes are noted. Therefore consulted with Orthopedic physician assistant professor of music Cynthia who recommended placing the patient in ortho shoe or boot we placed her in a boot due to the shoes were too small of too big therefore we placed her in a pediatric size large ortho boot and that fits her normally. Otherwise will DC home with symptomatic treatment and referral to Orthopedics and to return if any new or worsening symptoms. Patient understands agrees with this plan. Procedures Orthopedic Splinting/Casting Injury #1: Side: left Lower Extremity Injury Location: foot Lower Extremity Immobilizer: boot orthosis MDM - Fall Medical Records Attestation: I reviewed the patient's medical records. Imaging Data X-ray of left knee/bilateral ankle/bilateral feet: Attestation: I personally reviewed and interpreted this imaging study as follows: Radiologist's impression: FINDINGS: Right ankle: Bone alignment is normal. No fracture or dislocation is seen. The ankle mortise is normal. Soft tissues are normal. Right foot: Bone alignment is normal. No fracture or dislocation is seen. Joint spaces are normal. Soft tissues are normal. Left ankle: Bone alignment is normal. No fracture or dislocation is seen. The ankle mortise is normal. Soft tissues are normal. Left foot: There is a nondisplaced fracture through the base of the fifth metatarsal bone. No other fracture is seen. Joint spaces are normal. Soft tissues are normal.? XR/XR foot LT min 3V IMPRESSION: Nondisplaced fracture through the base of the left fifth metatarsal bone.? FINDINGS: Bones and soft tissues are normal. No fracture or joint effusion. Alignment is anatomic. Joint spaces are well maintained. No abnormal soft tissue calcification.? XR/XR knee LT 4V IMPRESSION: Normal left knee. Discharge Plan Discharge Clinical Impression: Fall, Left knee sprain, Nondisplaced fracture of fifth left metatarsal bone, Right foot sprain, Left ankle sprain, Right ankle sprain Patient Disposition: Home, Self-Care Instructions: Sprain (ED), Foot Fracture in Adults (ED), Walking Boot (ED) Prescriptions: New ibuprofen 800 mg tablet 600 mg PO Q8H PRN (Reason: pain) Qty: 14 RF: 0 acetaminophen [Tylenol Extra Strength] 500 mg tablet 1,000 mg PO QID PRN (Reason: fever or pain) Qty: 14 RF: 0 oxycodone 5 mg tablet 5 mg PO BID PRN (Reason: pain) Qty: 10 RF: 0 No Action fluoxetine 40 mg capsule 40 mg PO QAM RF: 0 atorvastatin 80 mg tablet 80 mg PO DAILY RF: 0 prazosin 1 mg capsule 1 mg PO BEDTIME RF: 0 glipizide 10 mg tablet 10 mg PO BID RF: 0 acetaminophen 650 mg tablet extended release 650 mg PO Q8H PRN (Reason: Pain) RF: 0 metformin 1,000 mg tablet 1,000 mg PO BID RF: 0 albuterol sulfate [Ventolin HFA] 90 mcg/actuation HFA aerosol inhaler 2 puff inhalation Q4-6H PRN (Reason: Shortness Of Breath) RF: 0 fluticasone propionate 50 mcg/actuation spray,suspension 1 spray intranasal DAILY RF: 0 ondansetron 4 mg tablet,disintegrating 4 mg PO Q6-8H PRN (Reason: nausea and vomiting) Qty: 20 RF: 0 docusate sodium [Colace] 100 mg capsule 100 mg PO DAILY Qty: 30 RF: 0 Referrals: Yolanda Priest MD [Primary Care Provider] - 2 days Mihai Segundo MD [Physician] - 04/04/21 Print Language: Amharic
[2021-04-02] MEDS: oxyCODONE HCl Immed Release 5 MG TABLET PO (17:31)
== END 2021-04-02 17:33 | disposition home or self-care (01) ==
PROVIDERS: Emergency Provider Emergency Medicine Emergency Medical Services; PCP Internal Medicine
DX: S92.352A Displaced fracture of fifth metatarsal bone, left foot, initial encounter for closed fracture (principal); S83.92XA Sprain of unspecified site of left knee, initial encounter; S93.401A Sprain of unspecified ligament of right ankle, initial encounter; S93.601A Unspecified sprain of right foot, initial encounter; S93.402A Sprain of unspecified ligament of left ankle, initial encounter; M79.605 Pain in left leg; M79.604 Pain in right leg; W01.0XXA Fall on same level from slipping, tripping and stumbling without subsequent striking against object, initial encounter; Y93.9 Activity, unspecified; Y92.512 Supermarket, store or market as the place of occurrence of the external cause; Y99.9 Unspecified external cause status; Z79.899 Other long term (current) drug therapy
CPT/HCPCS: 29515; 73564; 73610; 73630; 99283

== ENCOUNTER 2021-04-07 07:08 | Outpatient (REF) | payer OTHER, SELFPAY ==
--- NOTE | ~2021-04-07 | XR_ITS ---
EXAMINATION: XR FOOT, LEFT CLINICAL INFORMATION: Pain unspecified foot COMPARISON: 04/02/2021 TECHNIQUE: AP, lateral, and oblique views of the left foot. FINDINGS: There is obliquely oriented lucency through the base of the left fifth metatarsal consistent with fracture. The fracture line remains visible with no bridging fracture callus identified. No new fracture seen. Otherwise normal mineralization and alignment. XR/XR foot LT min 3V IMPRESSION: Similar appearance of obliquely oriented fracture through the base of the left fifth metatarsal.
== END 2021-04-07 07:09 | disposition home or self-care (01) ==
LOC: HO.HOSX 07:08
PROVIDERS: Visit Provider Physician Assistant
DX: S92.352A Displaced fracture of fifth metatarsal bone, left foot, initial encounter for closed fracture (principal)
CPT/HCPCS: 73630; 99202

== ENCOUNTER → 2021-04-21 14:05 | Outpatient (BNVA) | payer OTHER, SELFPAY | PROVIDERS: Visit Provider Physician Assistant | DX: S92.352D Displaced fracture of fifth metatarsal bone, left foot, subsequent encounter for fracture with routine healing (principal) | CPT/HCPCS: 99212 ==

== ENCOUNTER 2021-05-12 07:24 | Outpatient (REF) | payer OTHER, SELFPAY ==
--- NOTE | ~2021-05-12 | XR_ITS ---
EXAMINATION: XR FOOT, LEFT CLINICAL INFORMATION: Foot pain. COMPARISON: 04/07/2021 TECHNIQUE: AP, lateral, and oblique views of the left foot. FINDINGS: Again seen is a fracture through the base of the 5th metatarsal in an oblique fashion. Fracture fragments appear a bit distracted, and there is some indistinctness of fracture edges indicating osteolysis and some attempt at interval healing. No bony fusion is seen. No other abnormalities are seen. No other fracture is detected. XR/XR foot LT min 3V IMPRESSION: Evolving fracture base of 5th metatarsal.
== END 2021-05-12 07:25 | disposition home or self-care (01) ==
LOC: HO.HOSX 07:24
PROVIDERS: Visit Provider Physician Assistant
DX: S92.352D Displaced fracture of fifth metatarsal bone, left foot, subsequent encounter for fracture with routine healing (principal)
CPT/HCPCS: 73630; 99212

== ENCOUNTER 2021-06-27 07:12 | Outpatient (REF) | payer OTHER, SELFPAY ==
--- NOTE | ~2021-06-27 | XR_ITS ---
EXAMINATION: XR FOOT, LEFT CLINICAL INFORMATION: Pain in the foot. COMPARISON: Left foot 04/02/2021, 04/07/2021 and 05/12/2021 TECHNIQUE: AP, lateral, and oblique views of the left foot. FINDINGS: Endosteal union of the fracture of the proximal fifth metatarsal. Fracture line is indistinct with only partial lucency now present in the fracture line. No change in alignment of the fracture fragments. No acute abnormality. No acute fracture or dislocation. No focal bone lesion or abnormal periosteal reaction. The joint spaces are normal. There is no soft tissue abnormality. XR/XR foot LT min 3V IMPRESSION: Healing fracture of the proximal fifth metatarsal.
== END 2021-06-27 07:13 | disposition home or self-care (01) ==
LOC: HO.HOSX 07:12
PROVIDERS: Visit Provider Physician Assistant
DX: S92.352D Displaced fracture of fifth metatarsal bone, left foot, subsequent encounter for fracture with routine healing (principal)
CPT/HCPCS: 73630; 99212

== ENCOUNTER 2021-07-25 14:00 | Outpatient (RCR) | payer OTHER, SELFPAY ==
--- NOTE | 2021-05-22 15:00 | MHC.PT.EP ---
[facility] [place] Office [place] Office [place] Office [address] Saira Hodges [address] [phone] F: [phone] F: [phone] F: [phone] F: [phone] Physical Therapy Plan of Care Date of Evaluation: Date of Surgery: n/a Diagnosis: fx of 5th metatarsal bone, L foot Assessment: Patient is a 60 year old female presenting to PT with complaints of pain in her L foot. Pt reports onset of pain began 04/02/2021 due to slipping and falling at the grocery store. She presents today with impairments in pain, ankle ROM, ankle strength, balance, and gait mechanics. Pt's current occupation is none, with baseline physical activities including ambulation, ADLs, and stair negotiation. 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 Clinical presentation today is most consistent with signs and sx associated with x-ray findings of L 5th metatarsal fx and pt will benefit from skilled PT to address the following problems and impairments noted upon evaluation: pain, ankle ROM, ankle strength, balance, and gait mechanics. These problems limit the patient with the following functional activities: ambulation, ADLs, and stair negotiation. The prescribed treatment plan of care is medically necessary. Co-morbidities of DM and peripheral neuropathy were identified and taken into considerations of plan of care. Pt was educated on HEP, role of PT, prognosis, POC. Frequency and Duration: The patient will be seen 2x week x 6 weeks Short Term Goals: Pt will demonstrate reports of 0/10 pain at rest in 3 weeks for improved QOL. Pt will demonstrate full ankle AROM in all directions in 3 weeks to prepare for ambulation out of the boot. Pt will demonstrate tolerance to ambulation without the boot in 4 weeks. Pt will demonstrate ability to SL stand x 10 sec on L in 5 weeks to prepare for improved SL stability on stairs. Fpc Goals: Pt will demonstrate 5/5 MMT ankle strength to allow her to ambulate community distances in 6 weeks with normal mechanics and pain <3/10. Pt will demonstrate ability to negotiate stairs step over step with pain <3/10 in 6 weeks to improve access to her apartment. Pt will demonstrate ability to complete all ADLs with pain <3/10 in 6 weeks. Treatment Plan: Modalities to reduce pain, spasms and effusion. Manual therapy to restore motion and function. Therapeutic exercise to improve strength and flexibility. Neuromuscular re-education for posture and balance. Therapeutic activities to return to functional activities of daily living. Electronically signed by: Gloria Phan, PT, DPT, ATC Please sign and return to therapist. Thank you for your referral.
--- NOTE | 2021-08-24 11:26 | MHC.PT.DC ---
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 Pt did not make more appts and has not called to be scheduled in over 30 days. Pt status currently unknown. Electronically signed by: Gloria Phan, PT, DPT, ATC Please sign and return to therapist. Thank you for your referral.
== END 2021-08-24 11:27 | disposition home or self-care (01) ==
LOC: HO.PT 14:00
PROVIDERS: PCP Internal Medicine; Visit Provider Physician Assistant
DX: S92.352D Displaced fracture of fifth metatarsal bone, left foot, subsequent encounter for fracture with routine healing (principal)
CPT/HCPCS: 97110; 97112; 97161

== ENCOUNTER 2021-07-26 07:57 | Outpatient (REF) | payer OTHER, SELFPAY | END 2021-07-26 07:58 | disposition home or self-care (01) | LOC: HO.HOSX 07:57 | PROVIDERS: Visit Provider Physician Assistant | DX: Z13.89 Encounter for screening for other disorder (principal) ==

== ENCOUNTER 2021-08-17 10:41 | Outpatient (REF) | payer OTHER, SELFPAY ==
--- NOTE | ~2021-08-17 | XR_ITS ---
EXAMINATION:XR foot LT min 3V VIEWS ACQUIRED: Frontal lateral and oblique CLINICAL INFORMATION: Reason for Exam M79.673 - Pain in unspecified foot COMPARISON: Prior study 06/27/2021 FINDINGS: Redemonstration of healing fracture at the base of the fifth metatarsal, the fracture has not completely fused yet, no displacement. No new fractures.. Intertarsal, tarsometatarsal, metatarsophalangeal and interphalangeal joints are intact. Surrounding soft tissues is normal. , XR/XR foot LT min 3V IMPRESSION: Further healing of an avulsion fracture at the base fifth metatarsal. The fracture has not completely fused yet.
== END 2021-08-17 10:42 | disposition home or self-care (01) ==
LOC: HO.HOSX 10:41
PROVIDERS: Visit Provider Physician Assistant
DX: S92.352A Displaced fracture of fifth metatarsal bone, left foot, initial encounter for closed fracture (principal)
CPT/HCPCS: 73630; 99212

== ENCOUNTER 2021-11-08 13:44 | Outpatient (REF) | payer OTHER, MEDICAID, SELFPAY ==
--- NOTE | ~2021-11-08 | MM_ITS ---
EXAMINATION: MM SCREENING DIGITAL BREAST TOMOSYNTHESIS, BILATERAL CLINICAL INFORMATION: Screening. Asymptomatic. The lifetime risk of breast cancer based on the Tyrer-Cuzick Model is 3%. COMPARISON: Mammography: 01/30/2018, 01/10/2017 (baseline). TECHNIQUE: Digital breast tomosynthesis is performed in both the craniocaudal and mediolateral oblique views along with computer-aided detection (CAD). Synthesized 2D images are generated from the tomosynthesis. FINDINGS: There are scattered areas of fibroglandular density (ACR BI-RADS breast composition Category b). There are no significant masses, abnormal calcifications, or other abnormalities. Parenchymal pattern is similar to prior studies. MM/MM tomosynthesis screening BI IMPRESSION: No mammographic evidence of malignancy. ASSESSMENT: BI-RADS 1: Negative RECOMMENDATION: Routine annual mammography screening. This patient's information was entered into a reminder system with a target due date for their next mammogram.
== END 2021-11-08 13:45 | disposition home or self-care (01) ==
LOC: HO.MAMMO 13:44
PROVIDERS: PCP Internal Medicine; Visit Provider Internal Medicine
DX: Z12.31 Encounter for screening mammogram for malignant neoplasm of breast (principal)
CPT/HCPCS: 77063; 77067

== ENCOUNTER 2022-01-02 09:56 | Inpatient (IN) | payer OTHER, SELFPAY ==
[2022-01-02] VITALS (9 sets, daily range): BP systolic 129–176; BP diastolic 70–83; PULSE 76–90; RESP 16–19; TEMP 36.7–37.1; O2SAT 98–100; BMI 25.0; BMI 24.1
--- NOTE | ~2022-01-02 | CT_ITS ---
EXAMINATION: CT HEAD WITHOUT CONTRAST CLINICAL INFORMATION: Transient ischemic attack. COMPARISON: No relevant prior imaging. TECHNIQUE: Contiguous axial imaging was performed from the skull base to vertex without intravenous administration of contrast. This CT examination was performed using dose optimization techniques as appropriate, variously including the following: *Automated exposure control *Adjustment of mA and/or kV according to patient size (this includes techniques or standardized protocols for targeted exams where dose is matched to indication/reason for exam; i.e. extremities or head) *Use of iterative reconstruction technique DLP: 595 mGy-cm FINDINGS: Croft-white matter differentiation is grossly preserved and there is no evidence of acute territorial infarct. There is no acute hemorrhage or abnormal extra-axial collection. No intracranial mass effect or hydrocephalus. The calvarium and skull base are intact. Mastoid air cells and middle ear cavities are well aerated. No active paranasal sinus disease. CT/CT head/brain wo con IMPRESSION: Unremarkable CT scan of the head. No evidence of acute territorial infarct or hemorrhage.
--- NOTE | ~2022-01-02 | MR_ITS ---
MRI OF THE BRAIN WITHOUT IV CONTRAST INDICATION: Stroke. COMPARISON: Head CT 01/02/2022. TECHNIQUE: Multiplanar multisequence MR imaging of the brain was obtained without IV contrast. FINDINGS: There are a few punctate foci of restricted diffusion within the right cerebellar dentate nucleus, most likely punctate acute infarcts. There is also a possible punctate acute infarct within the posterior limb of the left internal capsule. Mild chronic angiopathy. There is no mass effect and there is no hemorrhagic transformation. There is no hydrocephalus, extra-axial surface collection, or herniation. The major flow voids at the skull base are preserved. There is no intracranial hemorrhage on the gradient recalled echo acquisition. The midline structures are normal. The cerebellar tonsils are normally positioned. The cerebellum and brainstem are normal. The craniocervical junction is normal. Osseous marrow signal intensity is homogenous. The visualized soft tissues are unremarkable. MR/MR head/brain wo con IMPRESSION: There are a few punctate foci of restricted diffusion within the right cerebellar dentate nucleus, most likely punctate acute infarcts. There is also a possible punctate acute infarct within the posterior limb of the left internal capsule. There is no mass effect and there is no hemorrhagic transformation.
--- NOTE | ~2022-01-02 | XR_ITS ---
EXAMINATION: XR CHEST CLINICAL INFORMATION: TIA. COMPARISON: 12/28/2020 chest radiograph. TECHNIQUE: Frontal view of the chest was obtained. FINDINGS: No significant abnormality is noted involving the heart, lungs, mediastinum, bony thorax or soft tissues. XR/XR chest 1V IMPRESSION: No acute cardiopulmonary process.
--- NOTE | ~2022-01-02 | CT_ITS ---
EXAMINATION: CT angio neck CLINICAL INFORMATION: Carotid stenosis. Stroke. COMPARISON: Brain MRI 01/03/2022. TECHNIQUE: Clothing Presser images were obtained. A CT angiogram of the neck was performed in the arterial phase after the intravenous administration of 70 mL Omnipaque 350. MIP reconstructions were generated in multiple orientations at the acquisition workstation. Multiple three-dimensional surface rendered images and maximum intensity projection images were generated on a dedicated 3-D lab workstation. Arterial stenoses are measured in accordance with NASCET criteria or similar method if applicable. This CT examination was performed using dose optimization techniques as appropriate, including one or more of the following: Automated exposure control, iterative reconstruction, and adjustment of technique factors (mA and/or kVp) according to patient size (this includes techniques or standardized protocols for targeted exams where dose is matched to indication/reason for exam). Total exam dose-length product 594 mGy-cm FINDINGS: CT angiogram neck: The aortic arch apex is normal. Origins of the major aortic branches are widely patent. There is a small amount of eccentric predominantly lipid-laden atheromatous plaque involving the medial wall of the left common carotid artery resulting in no stenosis. There is partially calcified predominantly lipid-laden atheromatous plaque at both carotid bifurcations. There is 25% stenosis of the right internal carotid artery at its origin. The left extracranial internal carotid artery is widely patent. The cervical segments of the vertebral arteries as well as their origins are patent. The intracranial internal carotid arteries are normal. Intradural vertebral artery segments and basilar artery are normal. Visualized portions of the anterior, middle, and posterior cerebral artery complexes are normal. Other: Soft tissues of the neck are unremarkable. Grossly no pathologically enlarged cervical lymph nodes. Visualized lung apices are clear. There is no acute osseous finding. No worrisome or blastic osseous lesion. CT/CT angio neck IMPRESSION: There is partially calcified atheromatous plaque causing 25% stenosis at the origin of the right internal carotid artery. Otherwise no stenosis of the cervical carotid or vertebral arteries. No intracranial large vessel occlusion is visualized within the [id number] of this examination.
--- NOTE | ~2022-01-02 | US_ITS ---
EXAMINATION: US EXTRACRANIAL CAROTID DUPLEX, BILATERAL CLINICAL INFORMATION: TIA, rule out stenosis, atheroma formation. History of diabetes, hypertension, hyperlipidemia. COMPARISON: None TECHNIQUE: Real-time ultrasound and Doppler techniques (integrating B-mode 2-D vascular images, Doppler spectral analysis and color-flow Doppler imaging) were utilized to interrogate the extracranial carotid arteries, the vertebral arteries and proximal subclavian arteries bilaterally. The degree of stenosis is determined by criteria similar to NASCET. FINDINGS: Right Side: 1. There is mild atherosclerotic plaque seen in the bifurcation/proximal ICA region. 2. The common carotid artery PSV proximally is 108 cm/s and distally 87 cm/s. 3. The proximal internal carotid artery velocities are 162 cm/s systolic and 46 cm/s diastolic. 4. The proximal external carotid artery PSV is 106 cm/s. 5. The vertebral artery shows antegrade flow. 6. The subclavian artery waveforms are normal. Left Side: 1. There is mild atherosclerotic plaque seen in the bifurcation/proximal ICA region. 2. The common carotid artery PSV proximally is 121 cm/s and distally 109 cm/s. 3. The proximal internal carotid artery velocities are 70 cm/s systolic and 23 cm/s diastolic. 4. The proximal external carotid artery PSV is 116 cm/s. 5. The vertebral artery shows antegrade flow. 6. The subclavian artery waveforms are normal. US/US carotid duplex BI IMPRESSION: 1. RIGHT: Moderate, hemodynamically significant stenosis of the proximal right internal carotid artery corresponding to a 50-79% stenosis by velocity criteria. 2. LEFT: Minimal, non-hemodynamically significant stenosis of the proximal left internal carotid artery corresponding to a 0-49% stenosis by velocity criteria.
--- NOTE | 2022-01-02 10:15 | ECG_ITS ---
Test Reason : weakness Blood Pressure : / mmHG Vent. Rate : 083 BPM Atrial Rate : 083 BPM P-R Int : 146 ms QRS Dur : 072 ms QT Int : 354 ms P-R-T Axes : 025 004 016 degrees QTc Int : 415 ms Normal sinus rhythm Minimal voltage criteria for LVH, may be normal variant ( R in aVL ) Borderline ECG When compared with ECG of 28-DEC-2020 15:17, No significant change was found Referred By: Mari Morris Electronically Signed By:FLORENCE HAGAN
--- NOTE | 2022-01-02 10:16 | ED_ITS ---
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 Started yesterday with slurred speech and left-sided weakness and numbness lasted for about 2 hours the patient symptoms improved and did not seek medical attention, when she woke up this morning felt slightly slurred speech. Patient is complaining of slight headache and blurry vision now. Patient stated that she is not feeling well ever since she started prazosin few weeks ago. Related Data Home Medications Medication Instructions Recorded Confirmed acetaminophen 650 mg 650 mg PO Q8H PRN 12/28/20 01/02/22 tablet,extended release albuterol sulfate 90 mcg/actuation 2 puff INHALATION Q4-6H PRN 12/28/20 01/02/22 aerosol inhaler (Ventolin HFA) fluoxetine 40 mg capsule 40 mg PO QAM 12/28/20 01/02/22 fluticasone propionate 50 1 spray INTRANASAL DAILY 12/28/20 01/02/22 mcg/actuation nasal spray,suspension glipizide 10 mg tablet 10 mg PO BID 12/28/20 01/02/22 metformin 1,000 mg tablet 1,000 mg PO BID 12/28/20 01/02/22 insulin glargine 100 unit/mL (3 35 unit SUBCUT QPM 04/07/21 01/02/22 mL) subcutaneous pen (Lantus Solostar U-100 Insulin) buspirone 7.5 mg tablet 1 tab PO BID 01/02/22 01/02/22 insulin aspart U-100 100 unit/mL 0 sliding scale dose SUBCUT TIDAC 01/02/22 01/02/22 (3 mL) subcutaneous pen (Novolog Flexpen U-100 Insulin aspart) lisinopril 5 mg tablet 1 tab PO DAILY 01/02/22 01/02/22 prazosin 2 mg capsule (Minipress) 4 mg PO BEDTIME 01/02/22 01/02/22 rosuvastatin 10 mg tablet 10 mg PO BEDTIME 01/02/22 01/02/22 Previous Rx's Medication Instructions Recorded naproxen 500 mg tablet (Naprosyn) 500 mg PO BID PRN 30 Days #60 tab 08/17/21 Allergies Allergy/AdvReac Type Severity Reaction Status Date / Time No Known Allergies Allergy Verified 08/17/21 14:50 [No Known Allergies*] Review of Systems Review of Systems: All other systems are reviewed and are negative Constitutional: Reports as per HPI and Reports no additional constitutional complaints Eyes: Reports as per HPI and Reports no additional eye complaints Reports system reviewed and no additional complaints, except as documented Cardiovascular: Reports as per HPI and Reports no additional cardiovascular complaints Respiratory: Reports as per HPI and Reports no additional respiratory complaints Gastrointestinal: Reports as per HPI and Reports no additional gastrointestinal complaints Genitourinary: Reports no additional female genitourinary complaints Musculoskeletal: Reports no additional musculoskeletal complaints Skin/Breast: Reports system reviewed and no additional complaints, except as docu Psychiatric: Reports no additional psychiatric complaints Endocrine: Reports no additional endocrine complaints Hematologic/Lymphatic: Reports no additional hematologic/lymphatic complaints Allergic/Immunologic: Reports no additional allergic/immunologic complaints Reports system reviewed and no additional complaints, except as documented and Reports Abnormal speech present [facility] Past Medical History Medical History Arthritis Asthma Back pain Depression Diabetes mellitus Hypercholesterolemia Peripheral neuropathy Surgical History H/O tubal ligation History of colonoscopy Family History Family History Father Lung cancer Prostate cancer Emphysema lung Social History Social History Alcohol intake: never Patient Tobacco Use Status: Never used Tobacco Use of substances other than those prescribed or required for medical reasons: No Advance Directives: No Advance Directives Information Provided: No Current occupational status: retired Current occupation: rt 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 Blood pressure normal. Heart rate normal. Respiration rate normal. Temperature normal. Oxygen saturation normal. Appearance: Alert. Oriented X3. No acute distress. Head: Normal external exam. Normocephalic. Atraumatic. No Larson signs noted. No raccoon eyes noted Eyes: PERRLA. EOMI. Conjunctiva and sclera normal. Eyelids normal. Visual a cuity is 20/40 in both eyes. ENT: TM's Normal. Pharynx normal. Uvula midline. Moist mucous membranes. No trismus noted. No drooling noted. No muffled voice noted. Neck: Normal inspection. Neck supple. FROM. No adenopathy. Thyroid Normal. No meningeal signs. No neck mass noted. CVS: Normal heart rate and rhythm. Heart sound normal. No murmurs noted. Pulses normal throughout. Respiratory: No respiratory distress. Painless inspiration. Breath sounds normal. No wheezes/rales/rhonchi noted. Chest nontender. No accessory muscle usage noted or decreased air movement noted. Abdomen: Soft and nontender. Bowel sounds normal in all 4 quadrants. No distention noted. No organomegaly noted. No visible injury noted. Back: No CVA tenderness. Full range of motion noted. Skin: Skin warm and dry. Normal skin color. Normal skin turgor. No rashes/lesions/lacerations noted. Extremities: No lower extremity edema. Extremities exhibit normal range of motion. Extremities nontender. Neuro: Oriented X 3. Cranial nerve exam: II-XII are grossly intact No motor deficit. No sensory deficit. Reflexes normal. NIH Stroke Scale Internal: Initial- Upon Arrival Time: 10:19 Level of Consciousness: Alert Level of Consciousness Questions: Answers both questions correctly Level of Consciousness Commands: Performs both tasks correctly Best Gaze: Normal Visual: No visual loss Facial Palsy: Normal Motor Arm (Right): No drift Motor Arm (Left): No drift Motor Leg (Right): No drift Motor Leg (Left): No drift Limb Ataxia: Absent Sensory: Normal Best Language: No aphasia Dysarthia: Normal Extinction and Inattention: No abnormality Score: 0 Course Course Course Narrative: Assessment and plan. 61 years old female came in with transient ischemic attack symptoms with left- sided weakness, normal neuro exam with no weakness, NIH score is 0. Will admit for further neurological evaluation. Medical Decision Making Lab Data Lab results reviewed: Yes I reviewed the patient's lab results. Result diagrams: 01/02/22 10:51 01/02/22 10:51 Labs: Lab Results 01/02/22 01/02/22 01/02/22 Range/Units 10:51 10:51 10:51 WBC 8.4 (4.8-10.8) X10*3/uL RBC 4.05 L (4.20-5.50) X10*6/uL Hgb 10.5 L (12.0-16.0) g/dl Hct 33.7 L (37.0-47.0) % MCV 83.2 (80.0-98.0) fL MCH 25.9 L (27.0-33.0) pg MCHC 31.2 (31.0-35.0) g/dl RDW 13.2 (11.0-16.0) % Plt Count 452 H (160-400) X10*3/uL MPV 9.7 (9.4-12.3) fL Immature Gran % (Auto) 0.4 (0.0-0.4) % Neut % (Auto) 56.2 (45-73) % Lymph % (Auto) 29.5 (20-40) % [place] % (Auto) 5.8 (2-11) % Eos % (Auto) 7.6 H (0-4) % Baso % (Auto) 0.5 (0-2) % Lymph # (Auto) 2.5 (1.2-4.9) X10*3/uL [place] # (Auto) 0.5 (0.1-1.2) X10*3/uL Eos # (Auto) 0.6 H (0.0-0.4) X10*3/uL Baso # (Auto) 0.0 (0.0-0.2) X10*3/uL Abs Immat Gran (auto) 0.03 (0.00-0.03) X10*3/uL Absolute Neuts (auto) 4.7 (2.0-8.3) x10*3/uL Absolute Nucleated RBC 0.000 (0.0-0.012) X10*3/uL Nucleated RBC % (auto) 0.0 (0.0-0.2) /100WBC Sodium 139 (135-145) mmol/L Potassium 4.9 (3.3-5.1) mmol/L Chloride 105 (96-108) mmol/L Carbon Dioxide 25 (22-29) mmol/L Anion Gap 14 (12-20) BUN 14 (9-16) mg/dL Creatinine 0.73 (0.5-1.4) mg/dL Estim Creat Clear Calc 74.8 Estimated GFR > 60 Random Glucose 162 H (60-115) mg/dL Calcium 9.8 (8.4-10.2) mg/dL Total Bilirubin 0.2 (0.0-1.0) mg/dL Direct Bilirubin < 0.2 (0.0-0.5) mg/dL AST 12 (5-31) U/L ALT 10 (0-31) U/L Alkaline Phosphatase 97 (39-117) U/L Troponin I High Sens < 3.5 (<3.5-17.0) ng/L B-Natriuretic Peptide 96 (<100) pg/mL Total Protein 7.4 (6.5-8.0) g/dL Albumin 4.0 (3.5-5.0) g/dL Lipase 59 (8-78) U/L Urine Color Urine Appearance Urine pH (5.0-8.0) Ur Specific [place] (1.005-1.025) Urine Protein (NEG-TRACE) MG/DL Urine Glucose (UA) (NEG) MG/DL Urine Ketones (NEG) MG/DL Urine Blood (NEG) Urine Nitrite (NEG) Ur Leukocyte Esterase (NEG) Influenza Type A (PCR) (Negative) Influenza Type B (PCR) (Negative) RSV RNA Qual (PCR) (Negative) SARS-CoV-2 RNA (RT-PCR) (Negative) 01/02/22 01/02/22 Range/Units 10:51 11:41 WBC (4.8-10.8) X10*3/uL RBC (4.20-5.50) X10*6/uL Hgb (12.0-16.0) g/dl Hct (37.0-47.0) % MCV (80.0-98.0) fL MCH (27.0-33.0) pg MCHC (31.0-35.0) g/dl RDW (11.0-16.0) % Plt Count (160-400) X10*3/uL MPV (9.4-12.3) fL Immature Gran % (Auto) (0.0-0.4) % Neut % (Auto) (45-73) % Lymph % (Auto) (20-40) % [place] % (Auto) (2-11) % Eos % (Auto) (0-4) % Baso % (Auto) (0-2) % Lymph # (Auto) (1.2-4.9) X10*3/uL [place] # (Auto) (0.1-1.2) X10*3/uL Eos # (Auto) (0.0-0.4) X10*3/uL Baso # (Auto) (0.0-0.2) X10*3/uL Abs Immat Gran (auto) (0.00-0.03) X10*3/uL Absolute Neuts (auto) (2.0-8.3) x10*3/uL Absolute Nucleated RBC (0.0-0.012) X10*3/uL Nucleated RBC % (auto) (0.0-0.2) /100WBC Sodium (135-145) mmol/L Potassium (3.3-5.1) mmol/L Chloride (96-108) mmol/L Carbon Dioxide (22-29) mmol/L Anion Gap (12-20) BUN (9-16) mg/dL Creatinine (0.5-1.4) mg/dL Estim Creat Clear Calc Estimated GFR Random Glucose (60-115) mg/dL Calcium (8.4-10.2) mg/dL Total Bilirubin (0.0-1.0) mg/dL Direct Bilirubin (0.0-0.5) mg/dL AST (5-31) U/L ALT (0-31) U/L Alkaline Phosphatase (39-117) U/L Troponin I High Sens (<3.5-17.0) ng/L B-Natriuretic Peptide (<100) pg/mL Total Protein (6.5-8.0) g/dL Albumin (3.5-5.0) g/dL Lipase (8-78) U/L Urine Color YELLOW Urine Appearance CLEAR Urine pH 6.0 (5.0-8.0) Ur Specific [place] 1.010 (1.005-1.025) Urine Protein NEG (NEG-TRACE) MG/DL Urine Glucose (UA) NEG (NEG) MG/DL Urine Ketones NEG (NEG) MG/DL Urine Blood NEG (NEG) Urine Nitrite NEG (NEG) Ur Leukocyte Esterase NEG (NEG) Influenza Type A (PCR) NEGATIVE (Negative) Influenza Type B (PCR) NEGATIVE (Negative) RSV RNA Qual (PCR) NEGATIVE (Negative) SARS-CoV-2 RNA (RT-PCR) NEGATIVE (Negative) Imaging Data CT scan - head: Attestation: I personally reviewed and interpreted this imaging study as follows: Radiologist's impression: Unremarkable CT scan of the head. No evidence of acute territorial infarct or hemorrhage. Chest x-ray: Attestation: I personally reviewed and interpreted this imaging study as follows: Radiologist's impression: No acute cardiopulmonary process. Discharge Plan Discharge Clinical Impression: TIA (transient ischemic attack) Patient Disposition: Admitted As Inpatient
[2022-01-02 11:06] LABS: Basophils Percent Auto 0.5 % (0-2); Eosinophils Absolute Auto 0.6 X10*3/uL (0.0-0.4); Eosinophils Percent Auto 7.6 % (0-4); Hematocrit 33.7 % (37.0-47.0); Hemoglobin 10.5 g/dl (12.0-16.0); Imm Gran Abs Auto 0.03 X10*3/uL (0.00-0.03); Imm Gran Pct Auto 0.4 % (0.0-0.4); Lymphocytes Absolute Auto 2.5 X10*3/uL (1.2-4.9); Lymphocytes Percent Auto 29.5 % (20-40); MANUAL DIFF FLAG NO; Mean Corpuscular HGB Conc 31.2 g/dl (31.0-35.0); Mean Corpuscular Hemoglobin 25.9 pg (27.0-33.0); Mean Corpuscular Volume 83.2 fL (80.0-98.0); Mean Platelet Volume 9.7 fL (9.4-12.3); Monocytes Absolute Auto 0.5 X10*3/uL (0.1-1.2); Monocytes Percent Auto 5.8 % (2-11); Neutrophils Absolute Auto 4.7 x10*3/uL (2.0-8.3); Neutrophils Percent Auto 56.2 % (45-73); Platelet Count 452 X10*3/uL (160-400); Red Blood Count 4.05 X10*6/uL (4.20-5.50); Red Cell Distribution Width 13.2 % (11.0-16.0); White Blood Count 8.4 X10*3/uL (4.8-10.8)
[2022-01-02 11:28] LABS: Alanine Aminotransferase 10 U/L (0-31); Alkaline Phosphatase 97 U/L (39-117); Anion Gap 14 (12-20); Aspartate Amino Transferase 12 U/L (5-31); Bilirubin Direct < 0.2 mg/dL (0.0-0.5); Bilirubin Total 0.2 mg/dL (0.0-1.0); Blood Urea Nitrogen 14 mg/dL (9-16); Calcium 9.8 mg/dL (8.4-10.2); Carbon Dioxide 25 mmol/L (22-29); Chloride 105 mmol/L (96-108); Creatinine Clr Calc Pharmacy 74.8; Estimated Glomerular Filt Rate > 60; Glucose Random 162 mg/dL (60-115); Lipase 59 U/L (8-78); Potassium 4.9 mmol/L (3.3-5.1); Sodium 139 mmol/L (135-145); Total Protein 7.4 g/dL (6.5-8.0)
[2022-01-02 11:31] LABS: B Type Natriuretic Peptide 96 pg/mL (<100); Troponin-I High Sensitivity < 3.5 ng/L (<3.5-17.0)
[2022-01-02 11:45] LABS: Influenza A PCR NEGATIVE (Negative); Influenza B PCR NEGATIVE (Negative); Resp Syncy Virus RNA Qual PCR NEGATIVE (Negative); SARS COV2 PCR INHOUSE NEGATIVE (Negative)
[2022-01-02 11:48] LABS: Appearance Urine CLEAR; Color Urine YELLOW; Glucose Urine UA NEG (NEG); Leukocyte Esterase Urine NEG (NEG); Nitrite Urine NEG (NEG); Urine Blood NEG (NEG); Urine Ketones NEG (NEG); Urine Protein NEG (NEG-TRACE)
--- NOTE | 2022-01-02 12:28 | PHA.MEDREC ---
Pharmacy Consult ? Medication Reconciliation Pharmacy has completed the medication reconciliation. Patient reported all medications. Patient reports she stopped Trulicity last week. Charu Hawk, DouglasD
--- NOTE | 2022-01-02 14:08 | P.HPHOSP_ITS ---
History of Present Illness Date of Service: 01/02/22 Chief Complaint: Heavy tongue, left upper extremity weakness and tingling A 61-year-old lady with PMH of diabetes, HLD, depression, asthma among others who presents to the hospital complaining of heavy tongue and left upper extremity weakness and tingling 1 day CHRONOMETER TESTER. The patient reports that she has been sick for almost a week or so after starting new medication for hypertension called prazosin. She had multiple vomiting episodes for the last few days. Yesterday she had noticed to hours long episode of heavy tongue and left upper extremity weakness and tingling associated with mild lower extremity tingling on the left side. She did not seek attention at that time as she fell asleep but which she woke up her symptoms were resolved. This morning she had a 2nd feeling of weakness in her own but less than before. Reporting odd feeling of paresthesia. Denies any fever, chills, double vision, chest pain, palpitation, change in level habit or urinary symptoms. ?n the emergency a CT scan of the head was negative for any acute findings. Will be admitted for further evaluation and treatment. Review of Systems Review of Systems: No fever, chills but reports feeling generalized weakness Tongue heaviness that has resolved by now No chest pain, palpitation No shortness of breath or coughing No abdominal pain, reporting nausea and vomiting that has improved No urinary symptoms Left upper extremity weakness and tingling that has resolved No any rash or wounds [facility] Medical History Arthritis Asthma Back pain Depression Diabetes mellitus Hypercholesterolemia Peripheral neuropathy Family History Father Lung cancer Prostate cancer Emphysema lung Surgical History H/O tubal ligation History of colonoscopy Social History Alcohol intake: never Patient Tobacco Use Status: Never used Tobacco Use of substances other than those prescribed or required for medical reasons: No Advance Directives: No Advance Directives Information Provided: No Current occupational status: retired Current occupation: rt handed Meds Allergies Allergy/AdvReac Type Severity Reaction Status Date / Time No Known Allergies Allergy Verified 08/17/21 14:50 [No Known Allergies*] Active Medications: Current Medications Acetaminophen (Acetaminophen 325 Mg Tablet) 650 mg PO Q6H PRN PRN Reason: Pain, Mild (Pain Scale 1-3) Albuterol Sulfate (Albuterol Sulfate 90 Mcg 8 Gm Inhaler) 2 puff INHALE Q4H PRN PRN Reason: Shortness Of Breath Aspirin (Aspirin Enteric Coated 81 Mg Tablet.Dr) 81 mg PO DAILY [facility] Atorvastatin Calcium (Atorvastatin Calcium 40 Mg Tablet) 40 mg PO BEDTIME [facility] Buspirone HCl (Buspirone Hcl 5 Mg Tablet) 7.5 mg PO BID [facility] Clopidogrel Bisulfate (Clopidogrel Bisulfate 75 Mg Tablet) 75 mg PO DAILY [facility] Enoxaparin Sodium (Enoxaparin Sodium 40 Mg/0.4 Ml Syringe) 40 mg SUBCUT Q24H [facility] Fluoxetine HCl (Fluoxetine Hcl 20 Mg Capsule) 40 mg PO DAILY [facility] Fluticasone Propionate (Fluticasone Propionate Nasal 16 Gm [place]) 1 spray NOSTRIL-B DAILY [facility] Insulin Glargine (Insulin Glargine,Hum.Rec.Anlog 100 Unit/Ml 10 Ml Vial) 35 unit SUBCUT BEDTIME [facility] Insulin Human Lispro (Insulin Lispro 100 Unit/Ml 3 Ml Vial) 0 unit SUBCUT QIDACHS [facility]; Protocol Ondansetron HCl (Ondansetron Hcl 4 Mg/2 Ml Vial) 4 mg IVPUSH Q8H PRN PRN Reason: Nausea and Vomiting Pharmacy Consult (Consult Rx Perform Med Rec) 1 each MISCELLANE ONCE PRN PRN Reason: Consult order Sodium Chloride (0.9 % Sodium Chloride Flush 3 Ml Syringe) 3 ml IVFLUSH QSHIFT [facility] Home Medications Medication Instructions Recorded Confirmed Last Taken Type acetaminophen 650 mg 650 mg PO Q8H PRN 12/28/20 01/02/22 01/02/22 History tablet,extended release albuterol sulfate 90 mcg/actuation 2 puff INHALATION Q4-6H PRN 12/28/20 01/02/22 01/02/22 History aerosol inhaler (Ventolin HFA) fluoxetine 40 mg capsule 40 mg PO QAM 12/28/20 01/02/22 01/02/22 History fluticasone propionate 50 1 spray INTRANASAL DAILY 12/28/20 01/02/22 01/02/22 History mcg/actuation nasal spray,suspension glipizide 10 mg tablet 10 mg PO BID 12/28/20 01/02/22 01/02/22 History metformin 1,000 mg tablet 1,000 mg PO BID 12/28/20 01/02/22 01/02/22 History insulin glargine 100 unit/mL (3 35 unit SUBCUT QPM 04/07/21 01/02/22 01/01/22 History mL) subcutaneous pen (Lantus Solostar U-100 Insulin) buspirone 7.5 mg tablet 1 tab PO BID 01/02/22 01/02/22 01/02/22 History insulin aspart U-100 100 unit/mL 0 sliding scale dose SUBCUT TIDAC 01/02/22 01/02/22 01/02/22 History (3 mL) subcutaneous pen (Novolog Flexpen U-100 Insulin aspart) lisinopril 5 mg tablet 1 tab PO DAILY 01/02/22 01/02/22 01/02/22 History prazosin 2 mg capsule (Minipress) 4 mg PO BEDTIME 01/02/22 01/02/22 01/01/22 History rosuvastatin 10 mg tablet 10 mg PO BEDTIME 01/02/22 01/02/22 01/01/22 History Physical Exam Vital Signs and Narrative: Vital Signs: Last Vital Signs Temp 98.1 F 01/02/22 14:01 Pulse 78 01/02/22 14:01 Resp 16 01/02/22 14:01 BP 166/77 H 01/02/22 14:01 Pulse Ox 99 01/02/22 14:01 BMI result Body Mass Index 25.0 Const: Other: Constitutional : Alert, oriented, not in distress Neck : Normal inspection, Supple Cardiovascular : RRR, no JVP, no lower extremity edema Respiratory : fair bilateral air entry, no crackles, wheezes or rhonchi Gastrointestinal: soft, lax, Normal bowel sounds, Non tender Skin : Warm, Dry Neurological : Alert & oriented x3, No focal deficit , CN 2-12 within normal Results Labs CBC and Chem 7: 01/02/22 10:51 01/02/22 10:51 Labs: Laboratory Results - last 24 hr 01/02/22 01/02/22 01/02/22 10:51 10:51 10:51 MCV 83.2 MCH 25.9 L MCHC 31.2 RDW 13.2 Plt Count 452 H MPV 9.7 Immature Gran % (Auto) 0.4 Neut % (Auto) 56.2 Lymph % (Auto) 29.5 [place] % (Auto) 5.8 Eos % (Auto) 7.6 H Baso % (Auto) 0.5 Lymph # (Auto) 2.5 [place] # (Auto) 0.5 Eos # (Auto) 0.6 H Baso # (Auto) 0.0 Abs Immat Gran (auto) 0.03 Absolute Neuts (auto) 4.7 Absolute Nucleated RBC 0.000 Nucleated RBC % (auto) 0.0 Anion Gap 14 Estim Creat Clear Calc 74.8 Estimated GFR > 60 Random Glucose 162 H Calcium 9.8 Total Bilirubin 0.2 Direct Bilirubin < 0.2 AST 12 ALT 10 Alkaline Phosphatase 97 Troponin I High Sens < 3.5 B-Natriuretic Peptide 96 Total Protein 7.4 Albumin 4.0 Lipase 59 Urine Color Urine Appearance Urine pH Ur Specific [place] Urine Protein Urine Glucose (UA) Urine Ketones Urine Blood Urine Nitrite Ur Leukocyte Esterase Influenza Type A (PCR) Influenza Type B (PCR) RSV RNA Qual (PCR) SARS-CoV-2 RNA (RT-PCR) 01/02/22 01/02/22 10:51 11:41 MCV MCH MCHC RDW Plt Count MPV Immature Gran % (Auto) Neut % (Auto) Lymph % (Auto) [place] % (Auto) Eos % (Auto) Baso % (Auto) Lymph # (Auto) [place] # (Auto) Eos # (Auto) Baso # (Auto) Abs Immat Gran (auto) Absolute Neuts (auto) Absolute Nucleated RBC Nucleated RBC % (auto) Anion Gap Estim Creat Clear Calc Estimated GFR Random Glucose Calcium Total Bilirubin Direct Bilirubin AST ALT Alkaline Phosphatase Troponin I High Sens B-Natriuretic Peptide Total Protein Albumin Lipase Urine Color YELLOW Urine Appearance CLEAR Urine pH 6.0 Ur Specific [place] 1.010 Urine Protein NEG Urine Glucose (UA) NEG Urine Ketones NEG Urine Blood NEG Urine Nitrite NEG Ur Leukocyte Esterase NEG Influenza Type A (PCR) NEGATIVE Influenza Type B (PCR) NEGATIVE RSV RNA Qual (PCR) NEGATIVE SARS-CoV-2 RNA (RT-PCR) NEGATIVE Imaging Radiologist's Impressions: Impressions Chest X-Ray 01/02/22 10:41 IMPRESSION: No acute cardiopulmonary process. Head CT 01/02/22 10:42 IMPRESSION: Unremarkable CT scan of the head. No evidence of acute territorial infarct or hemorrhage. Assessment and Plan (1) TIA (transient ischemic attack): Status: Acute Plan A 61-year-old lady with PMH of diabetes, HLD, depression, asthma among others who presents to the hospital complaining of heavy tongue and left upper extremity weakness and tingling 1 day CHRONOMETER TESTER. Tongue heaviness,LUE weakness and tingling Likely secondary to TIA ABCD score of 7, High risk Start dual antiplatelet of baby aspirin and Plavix Start atorvastatin 40 mg bedtime Lipid panel To do carotid ultrasound Get Neurology evaluation PT, OT evaluation Type 2 diabetes Check HbA1c Hold oral medications SSI, diabetic diet Continue home dose Lantus Hypertension DC prazosin Increase lisinopril to 10 mg daily DVT PPX Lovenox Quality Stroke Does the patient have a stroke diagnosis?: No VTE Prior VTE?: No VTE Risk Level:: Medical - moderate - high VTE Device Contraindication: Treatment Not Indicated VTE Drug Contraindication: N/A - Med Ordered
[2022-01-02] MEDS: Clopidogrel Bisulfate 75 MG TABLET PO (14:20)
[2022-01-02] MEDS: Aspirin Enteric Coated 81 MG TABLET.DR PO (14:20)
[2022-01-02 14:25] LABS: Estimated Average Glucose 280 mg/dL; Hemoglobin A1c % 11.4 %
[2022-01-02 16:48] LABS: Glucose, Whole Blood 72 mg/dL (60-115)
[2022-01-02] MEDS: Enoxaparin Sodium 40 MG/0.4 ML SYRINGE SUBCUT (18:09)
[2022-01-02] MEDS: 0.9 % Sodium Chloride Flush 3 ML SYRINGE IVFLUSH ×2 (18:09→20:57)
--- NOTE | 2022-01-02 19:20 | PC.NURSE ---
Arrived to [facility] room 462 via strecher from ED. NSR on tele, VSS, afebrile, no acute resp. distress noted. Painting Contractor services used. Son at bedside. patient oriented to the room.
[2022-01-02 20:18] LABS: Glucose, Whole Blood 188 mg/dL (60-115)
[2022-01-02] MEDS: Insulin Glargine,Hum.rec.anlog 100 UNIT/ML 10 ML VIAL 35 UNIT SUBCUT (20:57)
[2022-01-02] MEDS: Atorvastatin Calcium 40 MG TABLET PO (20:57)
[2022-01-02] MEDS: busPIRone HCl 5 MG TABLET 7.5 MG PO (20:57)
[2022-01-02] MEDS: Insulin Lispro 100 UNIT/ML 3 ML VIAL SUBCUT (20:57)
[2022-01-03] VITALS (7 sets, daily range): BP systolic 125–139; BP diastolic 62–81; PULSE 80–108; RESP 13–20; TEMP 36.4–37.1; O2SAT 98–100
[2022-01-03 06:50] LABS: Hematocrit 33.5 % (37.0-47.0); Hemoglobin 10.5 g/dl (12.0-16.0); Mean Corpuscular HGB Conc 31.3 g/dl (31.0-35.0); Mean Corpuscular Hemoglobin 25.7 pg (27.0-33.0); Mean Corpuscular Volume 81.9 fL (80.0-98.0); Mean Platelet Volume 9.8 fL (9.4-12.3); Platelet Count 470 X10*3/uL (160-400); Red Blood Count 4.09 X10*6/uL (4.20-5.50); Red Cell Distribution Width 13.1 % (11.0-16.0); White Blood Count 8.5 X10*3/uL (4.8-10.8)
--- NOTE | 2022-01-03 07:00 | CA_ITS ---
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 Study Quality: Good ECG Rhythm: Sinus Conclusions: - The left ventricular systolic function is normal. The calculated ejection fraction is 61% by biplane method. - No obvious valvular pathology seen on this study. - Bubble study negative during rest and Valsalva. Findings Left Ventricle Normal left ventricular cavity size. There is normal left ventricular wall thickness. The left ventricular systolic function is normal. The calculated ejection fraction is 61% by biplane method. There is no evidence of regional wall motion abnormalities. Diastolic function is normal for age. Right Ventricle Normal right ventricular cavity size and systolic function. Atria Both atria are normal in size. There is no evidence of interatrial shunt by color Doppler. Bubble study negative during rest and Valsalva. Aortic Valve There is a normal trileaflet aortic valve. There is no aortic valve stenosis. There is no aortic valve regurgitation. Mitral Valve The mitral valve appears normal. There is trace mitral valve regurgitation. There is no mitral valve stenosis. Pulmonic Valve The pulmonic valve was not well visualized. Tricuspid Valve Normal tricuspid valve structure. There is trace tricuspid valve regurgitation. The pulmonary artery systolic pressure is normal. Great Vessels The asc aorta is normal in size. Venous The inferior vena cava is normal in size and collapses greater than 50% with inspiration. Pericardium/Pleural There is no evidence of pericardial effusion. Prior Study Comparison No prior study available for comparison. Recommendations, Care & Conclusions No obvious valvular pathology seen on this study. Measurements 2D Linear Measurements IVSd: 0.82 0.6-0.9/0.6-1.0 cm LVIDd: 4.69 3.9-5.3/4.2-5.9 cm LVIDd Index: 2.79 2.4-3.2/2.2-3.1 cm/m2 LVIDs: 3.05 2.0-3.6 cm LVPWd: 0.79 0.7-1.1 cm LA Diam: 3.50 2.7-3.8/3.0-4.0 cm LAIDs Index: 2.08 1.5-2.3 cm/m2 LV Mass: 152.51 67-162/88-224 g LV Mass Index: 90.78 43-95/49-115 g/m2 LVOT Diam: 2.10 3.0+(-)1.3 cm 2D Systolic Function EF 4C: 55.20 >55% EF 2C: 66.30 >55% EF BiP: 60.90 >55% Mitral Valve MV Pk E: 0.72 MV PK A: 0.59 MV Decel Time: 177.00 E/A: 1.20 E'Lateral: 8.92 E'Medial: 6.53 E/E' Med: 11.00 E/E' Lat: 8.10 PHT: 52.00 MVA PHT: 4.23 Decel [place]: 4.06 Aortic Valve AoV Pk Michael: 1.26 AoV Mn Michael: 0.93 AoV VTI: 0.28 AoV Pk Grad: 6.00 Aov Mn Grad: 4.00 GEETA Cont.VTI: 2.06 LVOT LVOT Pk Michael: 0.75 LVOT Mn Michael: 0.54 LVOT VTI: 0.17 LVOT Pk Grad: 2.00 LVOT Mn Grad: 1.00 LVOT Diam: 2.10 LVOT Area: 3.46 Diastolic Function MV Pk E: 0.72 MV Pk A: 0.59 E/A: 1.20 E'Medial: 6.53 E/E' Med: 11.00 E' Laterial: 8.92 E/E' Lat: 8.10 Right Ventricle TAPSE (mm): 16.50 TVS' Michael: 12.50 Tricuspid Valve TR Pk Michael: 2.39 TR Pk Grad: 23.00 RA Press: 3.00 RVSP: 26.00 Great Vessels Aorta Sinus of Valsalva: 3.00 2.0-3.5 cm Ao Asc: 2.90 2.1-3.4 cm Ao Arch: 2.50 Updated in Other Vendor System with Status of Final Too Kumar MD electronically signed on 01/04/2022 9:29:39 AM with status of Final
[2022-01-03 07:10] LABS: Anion Gap 13 (12-20); Blood Urea Nitrogen 15 mg/dL (9-16); Calcium 9.7 mg/dL (8.4-10.2); Carbon Dioxide 25 mmol/L (22-29); Chloride 106 mmol/L (96-108); Cholesterol 176 mg/dL; Creatinine Clr Calc Pharmacy 77.4; Estimated Glomerular Filt Rate > 60; Glucose Random 76 mg/dL (60-115); HDL Cholesterol 52 mg/dL; LDL Cholesterol Calculated 106 mg/dl; Potassium 4.4 mmol/L (3.3-5.1); Sodium 140 mmol/L (135-145); Triglycerides 92 mg/dL
[2022-01-03 07:14] LABS: Glucose, Whole Blood 81 mg/dL (60-115)
--- NOTE | 2022-01-03 09:28 | P.CNNE_ITS ---
History of Present Illness Data of Consult Service Date: 01/03/22 Primary Care Provider: Yolanda Priest MD HPI Reason for consult: TIA 61 YEARS OLD WOMAN WHO CAME TO HOSPITAL WITH COMPLAINTS OF HEAVINESS OF TONGUE AND LEFT-SIDED NUMBNESS. SHE WAS ALSO HAVING DIZZINESS NAUSEA AND VOMITING. APPARENTLY THE SYMPTOMS WERE INTERMITTENT. WHEN I SAW HER SHE WAS OKAY. THERE WAS NO HISTORY OF RECENT TRAUMA OR NECK INJURY. THERE WAS NO ASSOCIATED CARDIAC SYMPTOM. Review of Systems Review of Systems: NO RECENT COLD OR FLU-LIKE PMFSH Past Medical History Medical History Arthritis Asthma Back pain Depression Diabetes mellitus Hypercholesterolemia Peripheral neuropathy Family History Family History Father Lung cancer Prostate cancer Emphysema lung Surgical History Surgical History H/O tubal ligation History of colonoscopy Social History Social History Household Members: Family and Children Housing: Apartment Do you presently have visiting nurse or other home services: No Alcohol intake: never Patient Tobacco Use Status: Never used Tobacco Smoked in Last 30 Days: No e-Cigarette/Vaping Use: Never Used Patient Interested in Nicotine Replacement: No Patient Given Instructions on How to Stop Smoking: No Second Hand Smoke Exposure: Yes Use of substances other than those prescribed or required for medical reasons: No Currently Displaying Signs/Symptoms of Drug Intoxication Withdrawal: No Any prior treatment program specific to substance use: No Have you been hit, kicked, punched, or otherwise hurt by someone within the past year? If so, by whom?: No Do you feel safe in your current relationship?: No Is there a partner from a previous relationship who is making you feel unsafe now?: No Are you made to feel afraid or neglected: No Advance Directives: No Advance Directives Information Provided: No Advance Directives on File: No Do you have thoughts of harming others: None Do you have a plan to hurt others: No Plan Recently lost weight without trying: Yes How much weight loss: 2-13 pounds Eating poorly because of decreased appetite: No Nutrition screen score: 3 Nutrition Risks: No Nutritional Risk Patient : No : No Poor oral hygiene: No Current occupational status: retired Current occupation: rt handed Meds Allergies Allergy/AdvReac Type Severity Reaction Status Date / Time No Known Allergies Allergy Verified 08/17/21 14:50 [No Known Allergies*] Active Medications: Current Medications Acetaminophen (Acetaminophen 325 Mg Tablet) 650 mg PO Q6H PRN PRN Reason: Pain, Mild (Pain Scale 1-3) Albuterol Sulfate (Albuterol Sulfate 90 Mcg 8 Gm Inhaler) 2 puff INHALE Q4H PRN PRN Reason: Shortness Of Breath Aspirin (Aspirin Enteric Coated 81 Mg Tablet.Dr) 81 mg PO DAILY [facility] Last Admin: 01/02/22 14:20 Dose: 81 mg Atorvastatin Calcium (Atorvastatin Calcium 80 Mg Tablet) 80 mg PO BEDTIME [facility] Buspirone HCl (Buspirone Hcl 5 Mg Tablet) 7.5 mg PO BID [facility] Last Admin: 01/02/22 20:57 Dose: 7.5 mg Clopidogrel Bisulfate (Clopidogrel Bisulfate 75 Mg Tablet) 75 mg PO DAILY [facility] Last Admin: 01/02/22 14:20 Dose: 75 mg Enoxaparin Sodium (Enoxaparin Sodium 40 Mg/0.4 Ml Syringe) 40 mg SUBCUT Q24H [facility] Last Admin: 01/02/22 18:09 Dose: 40 mg Fluoxetine HCl (Fluoxetine Hcl 20 Mg Capsule) 40 mg PO DAILY [facility] Fluticasone Propionate (Fluticasone Propionate Nasal 16 Gm [place]) 1 spray NOSTRIL-B DAILY [facility] Insulin Glargine (Insulin Glargine,Hum.Rec.Anlog 100 Unit/Ml 10 Ml Vial) 35 unit SUBCUT BEDTIME [facility] Last Admin: 01/02/22 20:57 Dose: 35 unit Insulin Human Lispro (Insulin Lispro 100 Unit/Ml 3 Ml Vial) 0 unit SUBCUT QIDACHS [facility]; Protocol Last Admin: 01/02/22 20:57 Dose: 2 unit Lisinopril (Lisinopril 10 Mg Tablet) 10 mg PO DAILY [facility]; Protocol Ondansetron HCl (Ondansetron Hcl 4 Mg/2 Ml Vial) 4 mg IVPUSH Q8H PRN PRN Reason: Nausea and Vomiting Pharmacy Consult (Consult Rx Perform Med Rec) 1 each MISCELLANE ONCE PRN PRN Reason: Consult order Sodium Chloride (0.9 % Sodium Chloride Flush 3 Ml Syringe) 3 ml IVFLUSH QSHIFT [facility] Last Admin: 01/02/22 20:57 Dose: 3 ml Home Medications Medication Instructions Recorded Confirmed Last Taken Type acetaminophen 650 mg 650 mg PO Q8H PRN Pain 12/28/20 01/02/22 01/02/22 History tablet,extended release albuterol sulfate 90 mcg/actuation 2 puff inhalation Q4-6H PRN 12/28/20 01/02/22 01/02/22 History aerosol inhaler (Ventolin HFA) Shortness Of Breath fluoxetine 40 mg capsule 40 mg PO QAM 12/28/20 01/02/22 01/02/22 History fluticasone propionate 50 1 spray intranasal DAILY 12/28/20 01/02/22 01/02/22 History mcg/actuation nasal spray,suspension glipizide 10 mg tablet 10 mg PO BID 12/28/20 01/02/22 01/02/22 History metformin 1,000 mg tablet 1,000 mg PO BID 12/28/20 01/02/22 01/02/22 History insulin glargine 100 unit/mL (3 35 unit subcut QPM 04/07/21 01/02/22 01/01/22 History mL) subcutaneous pen (Lantus Solostar U-100 Insulin) buspirone 7.5 mg tablet 1 tab PO BID 01/02/22 01/02/22 01/02/22 History insulin aspart U-100 100 unit/mL 0 sliding scale dose subcut TIDAC 01/02/22 01/02/22 01/02/22 History (3 mL) subcutaneous pen (Novolog Flexpen U-100 Insulin aspart) lisinopril 5 mg tablet 1 tab PO DAILY 01/02/22 01/02/22 01/02/22 History prazosin 2 mg capsule (Minipress) 4 mg PO BEDTIME 01/02/22 01/02/22 01/01/22 History rosuvastatin 10 mg tablet 10 mg PO BEDTIME 01/02/22 01/02/22 01/01/22 History Physical Exam Vital Signs: Vital Signs: Last Vital Signs Temp 98.8 F 01/03/22 07:25 Pulse 80 01/03/22 07:25 Resp 18 01/03/22 07:25 BP 131/73 01/03/22 07:25 Pulse Ox 100 01/03/22 07:25 O2 Del Method 01/03/22 07:25 BMI result Body Mass Index 24.1 Neuro: Other: SHE WAS ALERT AND AWAKE WITH NORMAL SPONTANEITY OF SPEECH FLUENCY COMPREHENSION AND AFFECT. FACE WAS SYMMETRICAL. VISUAL MARK ARE FULL. THERE WAS NO OBVIOUS FOCAL WEAKNESS IN ARMS OR LEGS. [id number] TESTING WAS NORMAL. DEEP TENDON REFLEXES WERE TRACE TO 1+. SPEECH WAS NORMAL. Results Labs CBC & Chem 7: 01/03/22 05:41 01/03/22 05:41 Labs: Short CBC 01/02/22 01/03/22 Range/Units 10:51 05:41 WBC 8.4 8.5 (4.8-10.8) X10*3/uL Hgb 10.5 L 10.5 L (12.0-16.0) g/dl Hct 33.7 L 33.5 L (37.0-47.0) % Plt Count 452 H 470 H (160-400) X10*3/uL BMP 01/02/22 01/03/22 10:51 05:41 Sodium 139 140 Potassium 4.9 4.4 Chloride 105 106 Carbon Dioxide 25 25 BUN 14 15 Creatinine 0.73 0.65 Calcium 9.8 9.7 Liver Function 01/02/22 Range/Units 10:51 Total Bilirubin 0.2 (0.0-1.0) mg/dL Direct Bilirubin < 0.2 (0.0-0.5) mg/dL AST 12 (5-31) U/L ALT 10 (0-31) U/L Alkaline Phosphatase 97 (39-117) U/L Albumin 4.0 (3.5-5.0) g/dL Urine 01/02/22 Range/Units 11:41 Urine Color YELLOW Urine Appearance CLEAR Urine pH 6.0 (5.0-8.0) Ur Specific [place] 1.010 (1.005-1.025) Urine Protein NEG (NEG-TRACE) MG/DL Urine Glucose (UA) NEG (NEG) MG/DL NONCONTRAST HEAD CT DID NOT REVEAL ANY SIGNIFICANT ABNORMALITY. CAROTID ULTRASOUND REVEALED MODERATE RIGHT INTERNAL CAROTID ARTERY STENOSIS IN THE NECK. Assessment and Plan (1) TIA (transient ischemic attack): Status: Acute POSSIBLE MICROVASCULAR POSTERIOR CIRCULATION EVENT. I WOULD RECOMMEND AND NONCONTRAST MRI OF BRAIN FOR DEFINITION. UNTIL THEN BABY ASPIRIN DAILY BLOOD PRESSURE CONTROL AND OTHER MEASURES TO CONTROL MICROVASCULAR DISEASE SHOULD CONTINUE (2) Carotid stenosis: Status: Acute MODERATE RIGHT ASYMPTOMATIC INTERNAL CAROTID ARTERY STENOSIS IS TREATED MEDICAL LY WITH ANTI-PLATELET AGENT BLOOD PRESSURE CONTROL AND STATIN. Procedures Date of Service Date of Service: 01/03/22
[2022-01-03] MEDS: Clopidogrel Bisulfate 75 MG TABLET PO (09:59)
[2022-01-03] MEDS: Aspirin Enteric Coated 81 MG TABLET.DR PO (10:00)
[2022-01-03] MEDS: FLUoxetine HCl 20 MG CAPSULE 40 MG PO (10:00)
[2022-01-03] MEDS: busPIRone HCl 5 MG TABLET 7.5 MG PO ×2 (10:00→21:04)
[2022-01-03] MEDS: lisinopriL 10 MG TABLET PO (10:01)
[2022-01-03] MEDS: 0.9 % Sodium Chloride Flush 3 ML SYRINGE IVFLUSH ×3 (10:02→21:09)
[2022-01-03] MEDS: Fluticasone Propionate Nasal 16 GM SPRAY 1 SPRAY NOSTRIL-B (10:06)
--- NOTE | 2022-01-03 10:25 | HO.PM.IMPN ---
Subjective Subjective Date of Service: 01/11/22 Interval History: Seen and evaluated this morning Reporting mild tingling in her left upper extremity with an episode of heavy done this morning Otherwise feels around her normal self, able to ambulate No reported overnight events Review of Systems No fever, chills or weakness Tongue heaviness that has resolved by now No chest pain, palpitation No shortness of breath or coughing No abdominal pain, no nausea and vomiting No urinary symptoms No any rash or wounds Physical Exam Vital Signs: Vital Signs: Last Vital Signs Temp 98.8 F 01/03/22 07:25 Pulse 80 01/03/22 07:25 Resp 18 01/03/22 07:25 BP 131/73 01/03/22 07:25 Pulse Ox 100 01/03/22 07:25 O2 Del Method 01/03/22 07:25 BMI result Body Mass Index 24.1 Const: Other: Constitutional : Alert, oriented, not in distress Neck : Normal inspection, Supple Cardiovascular : RRR, no JVP, no lower extremity edema Respiratory : fair bilateral air entry, no crackles, wheezes or rhonchi Gastrointestinal: soft, lax, Normal bowel sounds, Non tender Skin : Warm, Dry Neurological : Alert & oriented x3, No focal deficit , normal superficial sensation, CN 2-12 within normal Objective Data Active Medications Acetaminophen (Acetaminophen 325 Mg Tablet) 650 mg PO Q6H PRN PRN Reason: Pain, Mild (Pain Scale 1-3) Albuterol Sulfate (Albuterol Sulfate 90 Mcg 8 Gm Inhaler) 2 puff INHALE Q4H PRN PRN Reason: Shortness Of Breath Aspirin (Aspirin Enteric Coated 81 Mg Tablet.) 81 mg PO DAILY [facility] Last Admin: 01/03/22 10:00 Dose: 81 mg Documented By: PEYTON Atorvastatin Calcium (Atorvastatin Calcium 80 Mg Tablet) 80 mg PO BEDTIME [facility] Buspirone HCl (Buspirone Hcl 5 Mg Tablet) 7.5 mg PO BID [facility] Last Admin: 01/03/22 10:00 Dose: 7.5 mg Documented By: PEYTON Clopidogrel Bisulfate (Clopidogrel Bisulfate 75 Mg Tablet) 75 mg PO DAILY [facility] Last Admin: 01/03/22 09:59 Dose: 75 mg Documented By: PEYTON Enoxaparin Sodium (Enoxaparin Sodium 40 Mg/0.4 Ml Syringe) 40 mg SUBCUT Q24H [facility] Last Admin: 01/02/22 18:09 Dose: 40 mg Documented By: ZENA Fluoxetine HCl (Fluoxetine Hcl 20 Mg Capsule) 40 mg PO DAILY [facility] Last Admin: 01/03/22 10:00 Dose: 40 mg Documented By: PEYTON Fluticasone Propionate (Fluticasone Propionate Nasal 16 Gm [place]) 1 spray NOSTRIL-B DAILY [facility] Last Admin: 01/03/22 10:06 Dose: 1 spray Documented By: PEYTON Insulin Glargine (Insulin Glargine,Hum.Rec.Anlog 100 Unit/Ml 10 Ml Vial) 35 unit SUBCUT BEDTIME [facility] Last Admin: 01/02/22 20:57 Dose: 35 unit Documented By: KENTRELL Insulin Human Lispro (Insulin Lispro 100 Unit/Ml 3 Ml Vial) 0 unit SUBCUT QIDACHS [facility]; Protocol Last Admin: 01/03/22 09:59 Dose: Not Given Documented By: PEYTON Non-Admin Reason: No Insulin Coverage Lisinopril (Lisinopril 10 Mg Tablet) 10 mg PO DAILY [facility]; Protocol Last Admin: 01/03/22 10:01 Dose: 10 mg Documented By: PEYTON Ondansetron HCl (Ondansetron Hcl 4 Mg/2 Ml Vial) 4 mg IVPUSH Q8H PRN PRN Reason: Nausea and Vomiting Pharmacy Consult (Consult Rx Perform Med Rec) 1 each MISCELLANE ONCE PRN PRN Reason: Consult order Sodium Chloride (0.9 % Sodium Chloride Flush 3 Ml Syringe) 3 ml IVFLUSH QSHIFT [facility] Last Admin: 01/03/22 10:02 Dose: 3 ml Documented By: PEYTON Labs CBC & Chem 7: 01/03/22 05:41 01/05/22 06:17 Labs: Laboratory Results - last 24 hr 01/02/22 01/02/22 01/02/22 10:51 10:51 10:51 MCV 83.2 MCH 25.9 L MCHC 31.2 RDW 13.2 Plt Count 452 H MPV 9.7 Immature Gran % (Auto) 0.4 Neut % (Auto) 56.2 Lymph % (Auto) 29.5 [place] % (Auto) 5.8 Eos % (Auto) 7.6 H Baso % (Auto) 0.5 Lymph # (Auto) 2.5 [place] # (Auto) 0.5 Eos # (Auto) 0.6 H Baso # (Auto) 0.0 Abs Immat Gran (auto) 0.03 Absolute Neuts (auto) 4.7 Absolute Nucleated RBC 0.000 Nucleated RBC % (auto) 0.0 Anion Gap 14 Estim Creat Clear Calc 74.8 Estimated GFR > 60 POC Glucose Random Glucose 162 H Estimat Average Glucose Hemoglobin A1c % Calcium 9.8 Total Bilirubin 0.2 Direct Bilirubin < 0.2 AST 12 ALT 10 Alkaline Phosphatase 97 Troponin I High Sens < 3.5 B-Natriuretic Peptide 96 Total Protein 7.4 Albumin 4.0 Triglycerides Cholesterol LDL Cholesterol, Calc HDL Cholesterol Lipase 59 Urine Color Urine Appearance Urine pH Ur Specific [place] Urine Protein Urine Glucose (UA) Urine Ketones Urine Blood Urine Nitrite Ur Leukocyte Esterase Influenza Type A (PCR) Influenza Type B (PCR) RSV RNA Qual (PCR) SARS-CoV-2 RNA (RT-PCR) 01/02/22 01/02/22 01/02/22 10:51 10:51 11:41 MCV MCH MCHC RDW Plt Count MPV Immature Gran % (Auto) Neut % (Auto) Lymph % (Auto) [place] % (Auto) Eos % (Auto) Baso % (Auto) Lymph # (Auto) [place] # (Auto) Eos # (Auto) Baso # (Auto) Abs Immat Gran (auto) Absolute Neuts (auto) Absolute Nucleated RBC Nucleated RBC % (auto) Anion Gap Estim Creat Clear Calc Estimated GFR POC Glucose Random Glucose Estimat Average Glucose 280 Hemoglobin A1c % 11.4 Calcium Total Bilirubin Direct Bilirubin AST ALT Alkaline Phosphatase Troponin I High Sens B-Natriuretic Peptide Total Protein Albumin Triglycerides Cholesterol LDL Cholesterol, Calc HDL Cholesterol Lipase Urine Color YELLOW Urine Appearance CLEAR Urine pH 6.0 Ur Specific [place] 1.010 Urine Protein NEG Urine Glucose (UA) NEG Urine Ketones NEG Urine Blood NEG Urine Nitrite NEG Ur Leukocyte Esterase NEG Influenza Type A (PCR) NEGATIVE Influenza Type B (PCR) NEGATIVE RSV RNA Qual (PCR) NEGATIVE SARS-CoV-2 RNA (RT-PCR) NEGATIVE 01/02/22 01/02/22 01/03/22 16:43 20:13 05:41 MCV 81.9 MCH 25.7 L MCHC 31.3 RDW 13.1 Plt Count 470 H MPV 9.8 Immature Gran % (Auto) Neut % (Auto) Lymph % (Auto) [place] % (Auto) Eos % (Auto) Baso % (Auto) Lymph # (Auto) [place] # (Auto) Eos # (Auto) Baso # (Auto) Abs Immat Gran (auto) Absolute Neuts (auto) Absolute Nucleated RBC 0.000 Nucleated RBC % (auto) 0.0 Anion Gap Estim Creat Clear Calc Estimated GFR POC Glucose 72 188 H Random Glucose Estimat Average Glucose Hemoglobin A1c % Calcium Total Bilirubin Direct Bilirubin AST ALT Alkaline Phosphatase Troponin I High Sens B-Natriuretic Peptide Total Protein Albumin Triglycerides Cholesterol LDL Cholesterol, Calc HDL Cholesterol Lipase Urine Color Urine Appearance Urine pH Ur Specific [place] Urine Protein Urine Glucose (UA) Urine Ketones Urine Blood Urine Nitrite Ur Leukocyte Esterase Influenza Type A (PCR) Influenza Type B (PCR) RSV RNA Qual (PCR) SARS-CoV-2 RNA (RT-PCR) 01/03/22 01/03/22 05:41 07:07 MCV MCH MCHC RDW Plt Count MPV Immature Gran % (Auto) Neut % (Auto) Lymph % (Auto) [place] % (Auto) Eos % (Auto) Baso % (Auto) Lymph # (Auto) [place] # (Auto) Eos # (Auto) Baso # (Auto) Abs Immat Gran (auto) Absolute Neuts (auto) Absolute Nucleated RBC Nucleated RBC % (auto) Anion Gap 13 Estim Creat Clear Calc 77.4 Estimated GFR > 60 POC Glucose 81 Random Glucose 76 Estimat Average Glucose Hemoglobin A1c % Calcium 9.7 Total Bilirubin Direct Bilirubin AST ALT Alkaline Phosphatase Troponin I High Sens B-Natriuretic Peptide Total Protein Albumin Triglycerides 92 Cholesterol 176 LDL Cholesterol, Calc 106 HDL Cholesterol 52 Lipase Urine Color Urine Appearance Urine pH Ur Specific [place] Urine Protein Urine Glucose (UA) Urine Ketones Urine Blood Urine Nitrite Ur Leukocyte Esterase Influenza Type A (PCR) Influenza Type B (PCR) RSV RNA Qual (PCR) SARS-CoV-2 RNA (RT-PCR) Assessment and Plan (1) Carotid stenosis: Status: Acute (2) Right cavernous carotid stenosis: Status: Acute (3) Tingling of left upper extremity: Status: Acute Plan A 61-year-old lady with PMH of diabetes, HLD, depression, asthma among others who presents to the hospital complaining of heavy tongue and left upper extremity weakness and tingling 1 day [employer]. Tongue heaviness,LUE weakness and tingling Likely secondary to TIA vs stroke ABCD2 score of 7, High risk Started on dual antiplatelet of baby aspirin and Plavix pending MRI atorvastatin 80 mg bedtime Lipid panel showing acceptable levels carotid ultrasound showing moderate stenosis of 50-79% Neurology input appreciated, get MRI and continue with aspirin Vascular surgery appreciated, if positive for stroke do CTA and dual antiplatelets for 21 days Pending echo PT, OT evaluation Type 2 diabetes Elevated HbA1c of 11.3 Hold oral medications SSI, diabetic diet Continue home dose Lantus Hypertension DC prazosin for reported multiple side effects after starting it Continue lisinopril to 10 mg daily DVT PPX Lovenox Patient will need to stay overnight to finish workup for possible stroke with echo, MRI and possible need for CTA pending final decisions from vascular surgery and Neurology to prevent possible stroke. Quality Stroke Does the patient have a stroke diagnosis?: No VTE Prior VTE?: No VTE Risk Level:: Medical - moderate - high VTE Device Contraindication: Treatment Not Indicated VTE Drug Contraindication: N/A - Med Ordered
--- NOTE | 2022-01-03 10:39 | P.CONGS_ITS ---
History of Present Illness Consult details Consult date: 01/03/22 Reason for consult: other (carotid stenosis) Narrative: 61-year-old female presented to the hospital for tingling of the left upper extremity is. Upon workup it was felt that she may have had a TIA. She has undergone CT scan of the head which was essentially negative. Upon workup she had also undergone carotid ultrasound which demonstrated stenosis. She now presents to us for vascular evaluation Review of Systems Review of Systems: Yes all other systems are reviewed and are negative Constitutional: Constitutional: Reports no additional constitutional comp laints ENT: Reports Normal hearing present Cardiovascular: Cardiovascular: Denies chest pain, Denies chest pain at rest, Denies chest pain with activity and Denies pedal edema Respiratory: Respiratory: Denies cough Gastrointestinal: Gastrointestinal: Denies abdominal pain Musculoskeletal: Musculoskeletal: Denies abnormal gait, Denies muscle cramps, Denies radiating pain into limb and Reports tingling (Left arm) Integumentary/Breasts: Skin/Breast: Denies skin ulcer and Denies wounds Neurologic: Reports Normal hearing present, Denies abnormal gait and Reports tingling (Left arm) Psychiatric: Psychiatric: Reports no additional psychiatric complaints PMFSH Past Medical History Medical History Arthritis Asthma Back pain Depression Diabetes mellitus Hypercholesterolemia Peripheral neuropathy Family History Family History Father Lung cancer Prostate cancer Emphysema lung Surgical History Surgical History H/O tubal ligation History of colonoscopy Social History Social History Household Members: Family and Children Housing: Apartment Do you presently have visiting nurse or other home services: No Alcohol intake: never Patient Tobacco Use Status: Never used Tobacco Smoked in Last 30 Days: No e-Cigarette/Vaping Use: Never Used Patient Interested in Nicotine Replacement: No Patient Given Instructions on How to Stop Smoking: No Second Hand Smoke Exposure: Yes Use of substances other than those prescribed or required for medical reasons: No Currently Displaying Signs/Symptoms of Drug Intoxication Withdrawal: No Any prior treatment program specific to substance use: No Have you been hit, kicked, punched, or otherwise hurt by someone within the past year? If so, by whom?: No Do you feel safe in your current relationship?: No Is there a partner from a previous relationship who is making you feel unsafe now?: No Are you made to feel afraid or neglected: No Advance Directives: No Advance Directives Information Provided: No Advance Directives on File: No Do you have thoughts of harming others: None Do you have a plan to hurt others: No Plan Recently lost weight without trying: Yes How much weight loss: 2-13 pounds Eating poorly because of decreased appetite: No Nutrition screen score: 3 Nutrition Risks: No Nutritional Risk Patient : No : No Poor oral hygiene: No Current occupational status: retired Current occupation: [employer] Allergies Allergy/AdvReac Type Severity Reaction Status Date / Time No Known Allergies Allergy Verified 08/17/21 14:50 [No Known Allergies*] Active Medications: Current Medications Acetaminophen (Acetaminophen 325 Mg Tablet) 650 mg PO Q6H PRN PRN Reason: Pain, Mild (Pain Scale 1-3) Albuterol Sulfate (Albuterol Sulfate 90 Mcg 8 Gm Inhaler) 2 puff INHALE Q4H PRN PRN Reason: Shortness Of Breath Aspirin (Aspirin Enteric Coated 81 Mg Tablet.Dr) 81 mg PO DAILY [facility] Last Admin: 01/03/22 10:00 Dose: 81 mg Atorvastatin Calcium (Atorvastatin Calcium 80 Mg Tablet) 80 mg PO BEDTIME [facility] Buspirone HCl (Buspirone Hcl 5 Mg Tablet) 7.5 mg PO BID [facility] Last Admin: 01/03/22 10:00 Dose: 7.5 mg Clopidogrel Bisulfate (Clopidogrel Bisulfate 75 Mg Tablet) 75 mg PO DAILY [facility] Last Admin: 01/03/22 09:59 Dose: 75 mg Enoxaparin Sodium (Enoxaparin Sodium 40 Mg/0.4 Ml Syringe) 40 mg SUBCUT Q24H [facility] Last Admin: 01/02/22 18:09 Dose: 40 mg Fluoxetine HCl (Fluoxetine Hcl 20 Mg Capsule) 40 mg PO DAILY [facility] Last Admin: 01/03/22 10:00 Dose: 40 mg Fluticasone Propionate (Fluticasone Propionate Nasal 16 Gm [place]) 1 spray NOSTRIL-B DAILY [facility] Last Admin: 01/03/22 10:06 Dose: 1 spray Insulin Glargine (Insulin Glargine,Hum.Rec.Anlog 100 Unit/Ml 10 Ml Vial) 35 unit SUBCUT BEDTIME [facility] Last Admin: 01/02/22 20:57 Dose: 35 unit Insulin Human Lispro (Insulin Lispro 100 Unit/Ml 3 Ml Vial) 0 unit SUBCUT QIDACHS [facility]; Protocol Last Admin: 01/03/22 09:59 Dose: Not Given Lisinopril (Lisinopril 10 Mg Tablet) 10 mg PO DAILY [facility]; Protocol Last Admin: 01/03/22 10:01 Dose: 10 mg Ondansetron HCl (Ondansetron Hcl 4 Mg/2 Ml Vial) 4 mg IVPUSH Q8H PRN PRN Reason: Nausea and Vomiting Pharmacy Consult (Consult Rx Perform Med Rec) 1 each MISCELLANE ONCE PRN PRN Reason: Consult order Sodium Chloride (0.9 % Sodium Chloride Flush 3 Ml Syringe) 3 ml IVFLUSH QSHIFT [facility] Last Admin: 01/03/22 10:02 Dose: 3 ml Home Medications Medication Instructions Recorded Confirmed Last Taken Type acetaminophen 650 mg 650 mg PO Q8H PRN Pain 12/28/20 01/02/22 01/02/22 History tablet,extended release albuterol sulfate 90 mcg/actuation 2 puff inhalation Q4-6H PRN 12/28/20 01/02/22 01/02/22 History aerosol inhaler (Ventolin HFA) Shortness Of Breath fluoxetine 40 mg capsule 40 mg PO QAM 12/28/20 01/02/22 01/02/22 History fluticasone propionate 50 1 spray intranasal DAILY 12/28/20 01/02/22 01/02/22 History mcg/actuation nasal spray,suspension glipizide 10 mg tablet 10 mg PO BID 12/28/20 01/02/22 01/02/22 History metformin 1,000 mg tablet 1,000 mg PO BID 12/28/20 01/02/22 01/02/22 History insulin glargine 100 unit/mL (3 35 unit subcut QPM 04/07/21 01/02/22 01/01/22 History mL) subcutaneous pen (Lantus Solostar U-100 Insulin) buspirone 7.5 mg tablet 1 tab PO BID 01/02/22 01/02/22 01/02/22 History insulin aspart U-100 100 unit/mL 0 sliding scale dose subcut TIDAC 01/02/22 01/02/22 01/02/22 History (3 mL) subcutaneous pen (Novolog Flexpen U-100 Insulin aspart) lisinopril 5 mg tablet 1 tab PO DAILY 01/02/22 01/02/22 01/02/22 History prazosin 2 mg capsule (Minipress) 4 mg PO BEDTIME 01/02/22 01/02/22 01/01/22 History rosuvastatin 10 mg tablet 10 mg PO BEDTIME 01/02/22 01/02/22 01/01/22 History Physical Exam Vital Signs: Vital Signs: Last Vital Signs Temp 98.8 F 01/03/22 07:25 Pulse 80 01/03/22 07:25 Resp 18 01/03/22 07:25 BP 131/73 01/03/22 07:25 Pulse Ox 100 01/03/22 07:25 O2 Del Method 01/03/22 07:25 BMI result Body Mass Index 24.1 Const: General: cooperative, healthy appearing and comfortable Orientation/consciousness: oriented to person, oriented to place and oriented to time HEENT: Head: Yes normal to inspection Neck: Neck: Yes normal visual inspection Carotids: no bruits Chest: Chest palpation & inspection: normal inspection of the chest Resp: Effort & Inspection: normal respiratory effort and able to speak in complete sentences Auscultation: clear to auscultation bilaterally, no crackles, no rales, no rhonchi and no wheezes Cardio: Rate: regular rate Rhythm: regular rhythm Heart sounds: S1 normal heart sound present and S2 normal heart sound present Bruits: no carotid bruits Peripheral pulses: Peripheral pulses 2+ throughout GI: Inspection: Yes normal to inspection Skin: Wounds: no wounds Hair: normal Neuro: General: oriented to person, oriented to place and oriented to time Cranial nerves: Yes CN's II-XII intact bilaterally and Yes Normal hearing present Cognition (Neuro): normal cognition Motor exam (neuro): 5/5 motor strength present throughout Extrem: Other: venous exam: No significant superficial varicosities or spider telangiectasias, minimal edema General: No clubbing, No cyanosis and No edema Psych: Appearance: grossly normal Mental Status: mental status grossly normal Speech and movement: Normal speech and movement present Results Labs Result diagrams: 01/03/22 05:41 01/03/22 05:41 Labs: Abnormal lab results 01/02/22 01/02/22 01/02/22 Range/Units 10:51 10:51 20:13 RBC 4.05 L (4.20-5.50) X10*6/uL Hgb 10.5 L (12.0-16.0) g/dl Hct 33.7 L (37.0-47.0) % MCH 25.9 L (27.0-33.0) pg Plt Count 452 H (160-400) X10*3/uL Eos % (Auto) 7.6 H (0-4) % Eos # (Auto) 0.6 H (0.0-0.4) X10*3/uL POC Glucose 188 H (60-115) mg/dL Random Glucose 162 H (60-115) mg/dL 01/03/22 Range/Units 05:41 RBC 4.09 L (4.20-5.50) X10*6/uL Hgb 10.5 L (12.0-16.0) g/dl Hct 33.5 L (37.0-47.0) % MCH 25.7 L (27.0-33.0) pg Plt Count 470 H (160-400) X10*3/uL Eos % (Auto) (0-4) % Eos # (Auto) (0.0-0.4) X10*3/uL POC Glucose (60-115) mg/dL Random Glucose (60-115) mg/dL Short CBC 01/02/22 01/03/22 Range/Units 10:51 05:41 WBC 8.4 8.5 (4.8-10.8) X10*3/uL Hgb 10.5 L 10.5 L (12.0-16.0) g/dl Hct 33.7 L 33.5 L (37.0-47.0) % Plt Count 452 H 470 H (160-400) X10*3/uL BMP 01/02/22 01/03/22 10:51 05:41 Sodium 139 140 Potassium 4.9 4.4 Chloride 105 106 Carbon Dioxide 25 25 BUN 14 15 Creatinine 0.73 0.65 Calcium 9.8 9.7 Liver Function 01/02/22 Range/Units 10:51 Total Bilirubin 0.2 (0.0-1.0) mg/dL Direct Bilirubin < 0.2 (0.0-0.5) mg/dL AST 12 (5-31) U/L ALT 10 (0-31) U/L Alkaline Phosphatase 97 (39-117) U/L Albumin 4.0 (3.5-5.0) g/dL Urine 01/02/22 Range/Units 11:41 Urine Color YELLOW Urine Appearance CLEAR Urine pH 6.0 (5.0-8.0) Ur Specific [place] 1.010 (1.005-1.025) Urine Protein NEG (NEG-TRACE) MG/DL Urine Glucose (UA) NEG (NEG) MG/DL All other labs normal. Imaging Additional studies: Carotid ultrasound - right side 50-79% stenosis with peak systolic velocity of 162 left 0-49% stenosis Assessment and Plan (1) Bilateral carotid artery stenosis: Status: Acute Plan In short patient has right-sided carotid stenosis. I do suspect it is closer to the 50% side of things as well os ease are quite low. Will await MRI to see if there was a true stroke. At the current time would recommend continued use of a statin and the addition of an aspirin. Should there be concerned that there is an embolic issue would consider use of dual anti-platelet agents. Thank you for allowing us to assist in this patient's care. If there are any questions or concerns please do not hesitate to contact us. Procedures Date of Service Date of Service: 01/03/22
[2022-01-03 11:01] LABS: Glucose, Whole Blood 193 mg/dL (60-115)
--- NOTE | 2022-01-03 12:27 | MHC.CM.PN ---
met with pt who is vax x 3 she explains thru interpertaor that she lives with grandchildren,sons many family members physical theRapy saw pt and indiated no pt needs dc plan home no servceis
--- NOTE | 2022-01-03 15:31 | MHC.STROKE ---
I MET WITH THE PATIENT AND HER SON TODAY WITH THE BALLAST REGULATOR OPERATOR. I CONFIRMED HER ONSET OF SYMPTOMS TO BE 01/01/22 AT 1800. AND THE SYMPTOMS LASTED 2 HOURS. SHE C/O OF LEFT SIDED WEAKNESS, HER TONGUE WAS NUMB, BROOKS AND BLURRED VISION. SHE DID NOT SEEK MEDICAL ATTENTION UNTIL THE FOLLOWING DAY. I REVIEWED THE MRI WITH DR SMITH AND THE ETIOLOGY COULD BE FROM AN EMBOLIC SOURCE FROM THE HEART, CAROTID OR HTN. WE DISCUSSED THE MRI RESULTS + ISCHEMIC STROKE. WE REVIEWED THE STROKE EDUCATION BOOKLET, MRI SCREENSHOT OF THE LOCATION OF THE STROKES. WE FOCUSED ON HER RISK FACTORS: DM, HDL, HTN, CAROTID STENOSIS, DIET, AND EXERCISE. I EXPLAINED THE LOCATION OF THE STROKE AND THE CORRELATING SYMPTOMS, ALSO HOW HER RISK FACTORS AFFECT HER BLOOD VESSELS. I EXPLAINED THE TESTS THAT SHE ALREADY HAD AND UPCOMING TESTS AND WHY THEY WERE NECESSARY. I STRESS CALLING 911 IMMEDIATELY IF SHE IS EXPERIENCING ANY STROKE SIGNS AND SYMPTOMS. SHE NEEDS TO PARTNER WITH HER PCP AND FOLLOW UP WITH HER REGULARLY. PCP IS R[facility] UPT[facility]. I ANSWERED ALL OF THEIR QUESTIONS AND ENCOURAGED THEM TO ASK THE NURSE IF SHE HAS ANY QUESTIONS TO CALL ME. I WILL FOLLOW UP WITH HER TOMORROW.
[2022-01-03 15:36] LABS: Glucose, Whole Blood 269 mg/dL (60-115)
[2022-01-03] MEDS: Enoxaparin Sodium 40 MG/0.4 ML SYRINGE SUBCUT (17:43)
[2022-01-03] MEDS: Insulin Lispro 100 UNIT/ML 3 ML VIAL SUBCUT ×2 (17:43→21:05)
[2022-01-03 19:16] LABS: Glucose, Whole Blood 240 mg/dL (60-115)
[2022-01-03] MEDS: Insulin Glargine,Hum.rec.anlog 100 UNIT/ML 10 ML VIAL 35 UNIT SUBCUT (21:04)
[2022-01-03] MEDS: Atorvastatin Calcium 80 MG TABLET PO (21:04)
[2022-01-03] MEDS: iohexoL 350 MG/ML 100 ML INFUS..BTL IV (21:33)
[2022-01-04] VITALS (7 sets, daily range): BP systolic 85–160; BP diastolic 58–85; PULSE 77–98; RESP 14–18; TEMP 36–36.5; O2SAT 96–100
[2022-01-04 07:31] LABS: Anion Gap 12 (12-20); Blood Urea Nitrogen 22 mg/dL (9-16); Calcium 9.7 mg/dL (8.4-10.2); Carbon Dioxide 26 mmol/L (22-29); Chloride 106 mmol/L (96-108); Creatinine Clr Calc Pharmacy 67.2; Estimated Glomerular Filt Rate > 60; Glucose Random 110 mg/dL (60-115); Potassium 5.5 mmol/L (3.3-5.1); Sodium 138 mmol/L (135-145)
[2022-01-04 07:50] LABS: Glucose, Whole Blood 94 mg/dL (60-115)
[2022-01-04] MEDS: 0.9 % Sodium Chloride Flush 3 ML SYRINGE IVFLUSH ×2 (08:36→20:33)
[2022-01-04] MEDS: FLUoxetine HCl 20 MG CAPSULE 40 MG PO (08:36)
[2022-01-04] MEDS: Sodium Zirconium Cyclosilicate 10 GM POWD.PACK PO (08:37)
[2022-01-04] MEDS: Aspirin Enteric Coated 81 MG TABLET.DR PO (08:37)
[2022-01-04] MEDS: busPIRone HCl 5 MG TABLET 7.5 MG PO ×2 (08:37→20:27)
[2022-01-04] MEDS: Clopidogrel Bisulfate 75 MG TABLET PO (08:37)
--- NOTE | 2022-01-04 09:22 | HO.VASCPN ---
Subjective Subjective Date of Service: 01/04/22 Patient reports: no new complaints and feels better Interval history: Patient seen and examined this morning with hourly sign language interpreter present. No significant events overnight. She reports that her left hand is doing significantly better and no tingling events since the original TIA. She had undergone MRI which was positive for stroke. Subsequent CTA of the carotids was ordered. Testing was done but results are not available as of yet Physical Exam Vital Signs: Vital Signs: Last Vital Signs Temp 96.9 F 01/04/22 08:00 Pulse 79 01/04/22 08:00 Resp 18 01/04/22 08:00 BP 97/62 01/04/22 08:34 Pulse Ox 96 01/04/22 08:00 O2 Del Method 01/04/22 08:00 BMI result Body Mass Index 24.1 Const: General: cooperative, healthy appearing and no acute distress Orientation/consciousness: oriented to person, oriented to place and oriented to time HEENT: Head: Yes normal to inspection Neck: Carotids: no bruits Chest: Chest palpation & inspection: normal inspection of the chest Resp: Effort & Inspection: normal respiratory effort and able to speak in complete sentences Auscultation: clear to auscultation bilaterally Cardio: Rate: regular rate Heart sounds: S1 normal heart sound present and S2 normal heart sound present GI: Inspection: Yes normal to inspection Skin: General skin exam: no rashes or lesions noted Wounds: no wounds Neuro: General: oriented to person, oriented to place, oriented to time and CN's II-XI intact bilaterally Extrem: General: Yes normal to inspection, Yes full ROM and Yes no clubbing, cyanosis or edema Psych: Appearance: grossly normal and well kempt Speech and movement: Normal speech and movement present Affect: normal affect Progress Note: A&P Assessment and plan (1) Bilateral carotid artery stenosis: Status: Acute Assessment and Plan: In short patient did have a stroke. The concern is her right carotid. I will await final CTA results. Pending that she may need possible carotid endarterectomy. This was discussed with the patient. She demonstrated an understanding of this. In addition echo was ordered as well and that is pending. Thank you for allowing us to assist in her care. If there are questions or concerns please do not hesitate to contact us. Time Spent With Patient Time: Total time spent is greater than 50% in coordination of care (as documented) at patient's floor/unit and/or counseling patient: Procedures Date of Service Date of Service: 01/04/22 Quality Stroke Does the patient have a stroke diagnosis?: No VTE Prior VTE?: No VTE Risk Level:: Medical - moderate - high VTE Device Contraindication: Treatment Not Indicated VTE Drug Contraindication: N/A - Med Ordered
[2022-01-04 11:05] LABS: Glucose, Whole Blood 171 mg/dL (60-115)
[2022-01-04] MEDS: Insulin Lispro 100 UNIT/ML 3 ML VIAL SUBCUT ×3 (11:23→20:28)
--- NOTE | 2022-01-04 12:09 | MHC.SP.ADU ---
Referring provider: Jaylene Guillen NP Reason for Referral: S/P CVA Type of Treatment: 60790 Evaluation Speech Sound Production WITH Language Date of Plan of Treatment: 01/04/22 Onset of Symptoms/Illness: 01/03/22 Date Treatment Started: 01/04/22 Medical Diagnosis: S/P CVA. MRI: A few punctate Foci of restricted diffusion w/in R cerebellar dentate nucleus, most likely punctate acute infarcts...possible punctate infarct in the posterior limb of the L internal capsule Carotid Ultrasound: R Sided Carotid Stenosis Primary Speech Language Diagnosis: R47.1 Dysarthria Secondary Speech Language Diagnosis: History Pt is a 61 year old woman who came to the ED after experiencing a heavy tongue and L upper extremity weakness for a period of about [address] was negative, however MRI identified likely punctate infarcts in the R cerebellum. Pt additionally diagnosed with R sided Carotid stenosis. Pt is monolingual Gambian speaker. Medical History: Arthritis Asthma Diabetes High Blood Pressure Other: HLD, Back pain, peripheral neuropathy Medication List: Please see chart Recent Hospitalizations: No Respiratory Needs: Room Air Patient Orientation: Alert & Oriented x 4 Social History: Employment Status: Highest level of education obtained: Current Living Situation: Pt reports that she is currently living with her son in a private apartment in [place]. Pt reported that this was a recent change, as she was living previously independently in her own apartment. Assistive Devices in use: Comment: Past Speech Language Therapy: UNK Other Therapies Seen in Current Calendar Year: Other: UNK Swallowing History: Dysphagia Specific: Within Functional Limits Comments: Pre-eval Risk for Aspiration: Pre-evaluation Dietary Consistencies: Regular Pre-eval Liquid Intake: Thin Pre-eval Medication Intake: Whole with Liquid Reported Speech, Language, Cognition difficulties: Speaking Comments: Pt reports mild slurring of speech when speaking at a rapid rate. Speech is otherwise noted to be clear and articulate. Quality of Life: WNL Patient Stated Goal of Speech-Language Therapy: Screen Speech/Language skills, S/P CVA. Assessment Speech Production: Within Functional Limits Clinical Impression: Intact Observations: On all tasks during screening and in conversation with PT in Gambian, patient presents with clear, articulate speech with no slurring evident. Pt reports that when she speaks rapidly, which she is more likely to do with relatives, she notices some mild slurring/difficulty speaking. Pt was advised of strategies to slow speaking rate. Informal Voice Assessment: Voice Loudness: Normal Mildly Loud Voice Nasal Resonance: Voice Oral Resonance: Normal Voice Phonatory-based Quality: Normal Voice Pitch: Normal Voice Other Observations: Clinical Impression: Intact Clinicial Observations: Tests of Speech & Lang Adults: Clinical Impression: Intact Observations: Pt's language skills were screened using a universal receptive/expressive language screening inventory translated into [place]ian. Pt presented with receptive and expressive language skills WFL. Tests of Cognition: Clinical Impression: Observations: Augmentative and Alternative Communication: Observations: Impressions and Recommendations Summary: Impact on Daily Function/Activity Limitations: Daily Activities: None Interpersonal Interactions: Mild Education: None Employment: None Community: None Prognosis for Improvement: Excellent Comment: On Speech and Language Screening, patient presents with all skills at baseline and WFL. Pt has c/o that when speaking rapidly, speech becomes slurred. When speaking at normal rate during this evaluation, Pt presented with clear, articulate speech. Recommendation for Speech Therapy: NA:Typical Evaluation Frequency/Duration: Date Range for Service Requested: Time to Reassess: Manager Global Goals: Short Term Goals: Goal # : Goal Status: Goal# : Goal Status: Goal # : Goal Status: Goal # : Goal Status: Recommended Referrals to be Discussed with Primary Care Provider: Patient Education: Completed: Yes Patient/Caregiver Education: Described Results of Evaluation Patient expressed understanding of evaluation Comments/Barriers to Learning: None Sales Strategy Manager Clinican/Clinical Fellow: No Supervisory Statement: N/A Speech Language Pathologist: Danielle Calderon M.A., [facility]-RESTRICTIVE PREPARATION OPERATOR
--- NOTE | 2022-01-04 13:48 | P.PNIM_ITS ---
Subjective Subjective Date of Service: 01/04/22 Interval History: seen and examined this morning follow up for Left upper extremity tingling, tongue heaviness both feeling of tongue heaviness and left hand tingling are improving CTA, echocardiogram pending Review of Systems Review of Systems: Yes all other systems are reviewed and are negative Constitutional Constitutional: Denies chills and Denies fever(s) Cardiovascular Cardiovascular: Denies chest pain, Denies palpitations and Denies dyspnea Respiratory Respiratory: Denies cough and Denies dyspnea Gastrointestinal Gastrointestinal: Denies abdominal pain, Denies nausea and Denies vomiting Endocrine Endocrine: Denies palpitations Physical Exam Vital Signs: Vital Signs: Last Vital Signs Temp 96.8 F 01/04/22 11:34 Pulse 79 01/04/22 11:34 Resp 18 01/04/22 11:34 BP 132/74 01/04/22 11:34 Pulse Ox 100 01/04/22 11:34 O2 Del Method 01/04/22 11:34 BMI result Body Mass Index 24.1 Const: General: cooperative, comfortable, alert and awake Nutritional Appearance: average body habitus Orientation/consciousness: patient oriented x3 Resp: Effort & Inspection: normal respiratory effort and able to speak in complete sentences Auscultation: clear to auscultation bilaterally Cardio: Rate: regular rate Heart sounds: S1 normal heart sound present and S2 normal heart sound present GI: Inspection: No distended Palpation (GI): Soft to palpation and nontender Neuro: Other: speech clear General: patient oriented x3 and CN's II-XI intact bilaterally Extrem: Other: able to move all 4 extremities spontaneously General: Yes no pedal edema Objective Data Active Medications Acetaminophen (Acetaminophen 325 Mg Tablet) 650 mg PO Q6H PRN PRN Reason: Pain, Mild (Pain Scale 1-3) Albuterol Sulfate (Albuterol Sulfate 90 Mcg 8 Gm Inhaler) 2 puff INHALE Q4H PRN PRN Reason: Shortness Of Breath Aspirin (Aspirin Enteric Coated 81 Mg Tablet.) 81 mg PO DAILY [facility] Last Admin: 01/04/22 08:37 Dose: 81 mg Documented By: MOO Atorvastatin Calcium (Atorvastatin Calcium 80 Mg Tablet) 80 mg PO BEDTIME [facility] Last Admin: 01/03/22 21:04 Dose: 80 mg Documented By: AMARILYS Buspirone HCl (Buspirone Hcl 5 Mg Tablet) 7.5 mg PO BID [facility] Last Admin: 01/04/22 08:37 Dose: 7.5 mg Documented By: MOO Clopidogrel Bisulfate (Clopidogrel Bisulfate 75 Mg Tablet) 75 mg PO DAILY [facility] Last Admin: 01/04/22 08:37 Dose: 75 mg Documented By: MOO Enoxaparin Sodium (Enoxaparin Sodium 40 Mg/0.4 Ml Syringe) 40 mg SUBCUT Q24H [facility] Last Admin: 01/03/22 17:43 Dose: 40 mg Documented By: PEYTON Fluoxetine HCl (Fluoxetine Hcl 20 Mg Capsule) 40 mg PO DAILY [facility] Last Admin: 01/04/22 08:36 Dose: 40 mg Documented By: MOO Fluticasone Propionate (Fluticasone Propionate Nasal 16 Gm [place]) 1 spray NOSTRIL-B DAILY [facility] Last Admin: 01/04/22 08:52 Dose: Not Given Documented By: MOO Non-Admin Reason: Previously Administered Insulin Glargine (Insulin Glargine,Hum.Rec.Anlog 100 Unit/Ml 10 Ml Vial) 35 unit SUBCUT BEDTIME [facility] Last Admin: 01/03/22 21:04 Dose: 35 unit Documented By: AMARILYS Insulin Human Lispro (Insulin Lispro 100 Unit/Ml 3 Ml Vial) 0 unit SUBCUT QIDACHS [facility]; Protocol Last Admin: 01/04/22 11:23 Dose: 2 unit Documented By: MOO Lisinopril (Lisinopril 10 Mg Tablet) 10 mg PO DAILY [facility]; Protocol Last Admin: 01/03/22 10:01 Dose: 10 mg Documented By: PEYTON Ondansetron HCl (Ondansetron Hcl 4 Mg/2 Ml Vial) 4 mg IVPUSH Q8H PRN PRN Reason: Nausea and Vomiting Pharmacy Consult (Consult Rx Perform Med Rec) 1 each MISCELLANE ONCE PRN PRN Reason: Consult order Sodium Chloride (0.9 % Sodium Chloride Flush 3 Ml Syringe) 3 ml IVFLUSH QSHIFT [facility] Last Admin: 01/04/22 08:36 Dose: 3 ml Documented By: MOO Labs CBC & Chem 7: 01/03/22 05:41 01/04/22 06:24 Labs: Laboratory Results - last 24 hr 06/03/1901/03/22 01/04/22 15:32 19:13 06:24 Anion Gap 12 Estim Creat Clear Calc 67.2 Estimated GFR > 60 POC Glucose 269 H 240 H Random Glucose 110 Calcium 9.7 01/04/22 01/04/22 07:47 10:52 Anion Gap Estim Creat Clear Calc Estimated GFR POC Glucose 94 171 H Random Glucose Calcium Assessment and Plan (1) Tingling of left upper extremity: Status: Acute Plan A 61-year-old lady with PMH of diabetes, HLD, depression, asthma among others who presents to the hospital complaining of heavy tongue and left upper extremity weakness and tingling 1 day [employer]. Acute stroke Tongue heaviness, LUE weakness and tingling MRI showing punctate foci in the right cerebellar dentate nucleus and possible punctate acute infarct within the posterior limb of the left internal capsule ABCD2 score of 7, High risk , Started on dual antiplatelet of ASA and Plavix continue atorvastatin 80 mg bedtime Lipid panel showing acceptable levels carotid ultrasound showing moderate stenosis of 50-79% - CTA pending. may need carotid end arterectomy depending on result Neurology input appreciated Vascular surgery appreciated, if positive for stroke do CTA and dual a ntiplatelets for 21 days ECHO done, negative bubble study Tele with no evidence of afib - may need holter monitor as outpatient no indication for PT on discharge Hyperkalemia k 5.5 hold lisinopril repeat BMP in am Type 2 diabetes Elevated HbA1c of 11.3 Hold oral medications SSI, diabetic diet Continue home dose Lantus Hypertension DC prazosin for reported multiple side effects after starting it Will hold lisinopril for hyperkalemia follow blood pressure closely Mood continue prozac, buspar DVT PPX -Lovenox attending -Dr. Bueno Patient will need ongoing inpatient stay to finish workup for possible stroke with echo, MRI and possible need for CTA pending final decisions from vascular surgery and Neurology to prevent possible stroke. Quality Stroke Does the patient have a stroke diagnosis?: No VTE Prior VTE?: No VTE Risk Level:: Medical - moderate - high VTE Device Contraindication: Treatment Not Indicated VTE Drug Contraindication: N/A - Med Ordered
[2022-01-04 15:28] LABS: Glucose, Whole Blood 236 mg/dL (60-115)
[2022-01-04] MEDS: Enoxaparin Sodium 40 MG/0.4 ML SYRINGE SUBCUT (16:53)
[2022-01-04 19:49] LABS: Glucose, Whole Blood 190 mg/dL (60-115)
[2022-01-04] MEDS: Insulin Glargine,Hum.rec.anlog 100 UNIT/ML 10 ML VIAL 35 UNIT SUBCUT (20:27)
[2022-01-04] MEDS: Atorvastatin Calcium 80 MG TABLET PO (20:27)
[2022-01-05 03:36] VITALS: BP 142/80; PULSE 93; RESP 18; TEMP 36.5; O2SAT 98
[2022-01-05 07:02] LABS: Anion Gap 11 (12-20); Blood Urea Nitrogen 15 mg/dL (9-16); Calcium 9.5 mg/dL (8.4-10.2); Carbon Dioxide 27 mmol/L (22-29); Chloride 108 mmol/L (96-108); Creatinine Clr Calc Pharmacy 75.1; Estimated Glomerular Filt Rate > 60; Glucose Random 65 mg/dL (60-115); Potassium 4.6 mmol/L (3.3-5.1); Sodium 141 mmol/L (135-145)
[2022-01-05 07:21] VITALS: BP 127/65; PULSE 77; RESP 18; TEMP 36.5; O2SAT 98
[2022-01-05 07:28] LABS: Glucose, Whole Blood 68 mg/dL (60-115)
[2022-01-05] MEDS: busPIRone HCl 5 MG TABLET 7.5 MG PO (08:45)
[2022-01-05] MEDS: Clopidogrel Bisulfate 75 MG TABLET PO (08:45)
[2022-01-05] MEDS: FLUoxetine HCl 20 MG CAPSULE 40 MG PO (08:45)
[2022-01-05] MEDS: Aspirin Enteric Coated 81 MG TABLET.DR PO (08:45)
[2022-01-05] MEDS: 0.9 % Sodium Chloride Flush 3 ML SYRINGE IVFLUSH (08:46)
--- NOTE | 2022-01-05 09:19 | PM.DS ---
DS: Providers Provider Date of Service: 01/05/22 Date of admission: 01/03/22 14:20 Date of discharge: 01/05/22 Primary care physician: Yolanda Priest MD Consults: 01/02/22 13:52 Consult to Neurology Routine Consulting Provider: [facility] Reason for consultation: TIA w ABCD score of >7 01/03/22 07:45 Consult to Vascular Surgery Routine Consulting Provider: Reese Aponte Reason for consultation: TIA, RT Moderate, significant stenosis of the proximal carotid A Attending physician on discharge: Hilton Bueno Discharging clinician: Jaylene Guillen DS: Diagnosis Discharge Diagnosis (1) Stroke: Status: Acute (2) Tingling of left upper extremity: Status: Acute (3) Carotid stenosis: Status: Acute DS: Summary Hospital Course Hospital Course: From H&P on day of admission A 61-year-old lady with PMH of diabetes, HLD, depression, asthma among others who presents to the hospital complaining of heavy tongue and left upper extremity weakness and tingling 1 day [employer].? The patient reports that she has been sick for almost a week or so after starting new medication for hypertension called prazosin.? She had multiple vomiting episodes for the last few days.? Yesterday she had noticed to hours long episode of heavy tongue and left upper extremity weakness and tingling associated with mild lower extremity tingling on the left side.? She did not seek attention at that time as she fell asleep but which she woke up her symptoms were resolved.? This morning she had a 2nd feeling of weakness in her own but less than before.? Reporting odd feeling of paresthesia.? Denies any fever, chills, double vision, chest pain, palpitation, change in level habit or urinary symptoms.?In the emergency a CT scan of the head was negative for any acute findings.? Will be admitted for further evaluation and treatment. discharge diagnoses Acute stroke right carotid stenosis hyperkalemia hypertension hospital course by problem acute stroke. Patient initially presented with tongue heaviness and left upper extremity weakness and tingling. CT scan of the brain showed no acute abnormalities. MRI showed punctate foci in the right cerebellar dentate nucleus and possible punctate acute infarct within the posterior limb of the left internal capsule. She was started on aspirin and high-dose statin. Lipid panel was obtained which showed acceptable levels. She was seen in consultation by Neurology who recommended dual anti-platelet therapy with aspirin and Plavix for the next 1 months then to discontinue Plavix. Due to possibility of 2 separate areas being affected neurology recommended outpatient Holter monitor to evaluate for arrhythmia. No episodes of atrial fibrillation were captured on telemetry during her hospitalization. She underwent echocardiogram which showed preserved LVEF, bubble study was negative. Carotid ultrasound initially showed moderate carotid stenosis on the right side. She was seen by vascular surgery who recommended CTA which showed only 25% stenosis on the right side. Vascular surgery recommends routine 3 month follow-up for surveillance. the tingling in her left hand is still present but has improved as well as her tongue heaviness. She still reports some tongue heaviness but only when she talks quickly. She was seen by speech therapy, occupational therapy, physical therapy who did not feel that she needed home services. HTN. Dose of Lisinopril was initially increased from 5 mg to 10 mg daily. She had an episode of hyperkalemia and low blood pressure readings in the 90s, therefore she will be discharged home on her previous dose of lisinopril. Blood pressure should be monitored closely. Patient reported multiple side effects after starting the medication Minipress. For that reason the medication was discontinued. DM. HBa1c was elevated at 11.4 - recommend close outpatient follow up with PCP Time Spent with Patient Time attestation: Total time spent providing and/or coordinating discharge services: Discharge coordination time: Greater than 30 minutes Quality: Safe Use of Opioids Does Pt have an Active Cancer Diagnosis on the Problem List?: No Quality: Stroke Does the patient have a stroke diagnosis?: Yes Reason for No Anti-thrombotic at DC: N/A - Med Ordered Reason for No Anticoagulant at DC: Not indicated Reason Not Initiating IV-Tpa: Not indicated Reason for No Anti-thrombotic by Day Two: N/A - Med Ordered Reason for No Statin at DC: N/A - Med Ordered Physical Exam Vital Signs: Vital Signs: Last Vital Signs Temp 97.7 F 01/05/22 07:21 Pulse 77 01/05/22 07:21 Resp 18 01/05/22 07:21 BP 127/65 01/05/22 07:21 Pulse Ox 98 01/05/22 07:21 O2 Del Method 01/05/22 07:21 BMI result Body Mass Index 24.1 Const: General: cooperative, comfortable, alert and awake Nutritional Appearance: average body habitus Orientation/consciousness: patient oriented x3 Resp: Effort & Inspection: normal respiratory effort and able to speak in complete sentences Auscultation: clear to auscultation bilaterally Cardio: Rate: regular rate Heart sounds: S1 normal heart sound present and S2 normal heart sound present GI: Inspection: No distended Palpation (GI): Soft to palpation and nontender Neuro: Other: speech clear General: patient oriented x3 and CN's II-XI intact bilaterally Extrem: Other: able to move all 4 extremities spontaneously General: Yes no pedal edema DS: Data Data Completed and Pending Labs on day of discharge: Laboratory Results - last 24 hr 01/04/22 01/04/22 01/04/22 10:52 15:23 19:44 Sodium Potassium Chloride Carbon Dioxide Anion Gap BUN Creatinine Estim Creat Clear Calc Estimated GFR POC Glucose 171 H 236 H 190 H Random Glucose Calcium 01/05/22 01/05/22 06:17 07:24 Sodium 141 Potassium 4.6 Chloride 108 Carbon Dioxide 27 Anion Gap 11 L BUN 15 Creatinine 0.67 Estim Creat Clear Calc 75.1 Estimated GFR > 60 POC Glucose 68 Random Glucose 65 Calcium 9.5 Discharge Plan Discharge Patient Disposition: Home, Self-Care Discharge Diagnosis: Stroke Referrals: Yolanda Priest MD [Primary Care Provider] - 1 Week Reese Aponte MD [Physician] - 3 Months Discharge Medications: New aspirin 81 mg Tablet,Delayed Release (Dr/Ec) 81 mg PO DAILY 30 Days Qty: 30 0RF atorvastatin 80 mg Tablet 80 mg PO BEDTIME 30 Days Qty: 30 0RF clopidogrel 75 mg Tablet 75 mg PO DAILY 30 Days Qty: 30 0RF Continued fluoxetine 40 mg capsule 40 mg PO QAM glipizide 10 mg tablet 10 mg PO BID acetaminophen 650 mg tablet extended release 650 mg PO Q8H PRN (Reason: Pain) metformin 1,000 mg tablet 1,000 mg PO BID albuterol sulfate [Ventolin HFA] 90 mcg/actuation HFA aerosol inhaler 2 puff inhalation Q4-6H PRN (Reason: Shortness Of Breath) fluticasone propionate 50 mcg/actuation spray,suspension 1 spray intranasal DAILY Rx Instructions: IN EACH NOSTRIL buspirone 7.5 mg tablet 1 tab PO BID lisinopril 5 mg tablet 1 tab PO DAILY insulin aspart U-100 [Novolog Flexpen U-100 Insulin] 100 unit/mL (3 mL) insulin pen 0 sliding scale dose subcut TIDAC Protocol: Insulin Correction Scale Less than or equal to 110 ---- Give (units): 0 111 to 150 Give (units): 6 151 to 200 Give (units): 8 201 to 250 Give (units): 10 251 to 300 Give (units): 12 301 to 350 Give (units): 14 Greater than 350 Give (units): 16 Call MD if Blood Glucose > : 350 Lantus Solostar U-100 Insulin 100 unit/mL (3 mL) insulin pen 35 unit subcut QPM Discontinued prazosin [Minipress] 2 mg capsule 4 mg PO BEDTIME rosuvastatin 10 mg tablet 10 mg PO BEDTIME naproxen [Naprosyn] 500 mg tablet 500 mg PO BID PRN (Reason: pain) 30 Days Qty: 60 0RF Discharge Orders: Discharge Order (Routine); Ordered 01/05/22 Ordered By: Jaylene Guillen Activity on Discharge: As tolerated Stand Alone Forms: Patient Portal Discharge page Care Plan Goals: see below Health Concerns: Acute Stroke - start taking both aspirin and plavix for the next month, and then stop plavix Start taking Lipitor as prescribed, stop taking rosuvastatin Minipress was stopped due to patient reported side effects, can discuss with PCP need to continue Call to schedule follow up with PCP - recommend outpatient Holter Monitor to evaluate for atrial fibrillation and close blood pressure monitoring Call to schedule follow up with Dr. Aponte, vascular surgeon, for routine surveillance of right carotid stenosis - no surgery is necessary at this time ECHO showed no abnormalities Don't take NSAIDs like motrin, ibuprofen, Aleve etc while taking both aspirin and plavix as it increases your risk of bleeding. Plan of Treatment: see above Assessment: see discharge summary Discharge Date/Time: 01/05/22 13:00
--- NOTE | 2022-01-05 09:45 | HO.VASCPN ---
Subjective Subjective Date of Service: 01/05/22 Patient reports: no new complaints and feels better Interval history: Patient seen examined. No significant events overnight. Appears to have no long-term neurologic sequela. Doing significantly better. She has undergone CT angiogram of the carotids. And now presents to us for follow-up. Physical Exam Vital Signs: Vital Signs: Last Vital Signs Temp 97.7 F 01/05/22 07:21 Pulse 77 01/05/22 07:21 Resp 18 01/05/22 07:21 BP 127/65 01/05/22 07:21 Pulse Ox 98 01/05/22 07:21 O2 Del Method 01/05/22 07:21 BMI result Body Mass Index 24.1 Const: General: cooperative, healthy appearing and no acute distress Orientation/consciousness: oriented to person, oriented to place and oriented to time HEENT: Head: Yes normal to inspection Neck: Carotids: no bruits Chest: Chest palpation & inspection: normal inspection of the chest Resp: Effort & Inspection: normal respiratory effort and able to speak in complete sentences Auscultation: clear to auscultation bilaterally Cardio: Rate: regular rate Heart sounds: S1 normal heart sound present and S2 normal heart sound present GI: Inspection: Yes normal to inspection Skin: General skin exam: no rashes or lesions noted Wounds: no wounds Neuro: General: oriented to person, oriented to place, oriented to time and CN's II-XI intact bilaterally Extrem: General: Yes normal to inspection, Yes full ROM and Yes no clubbing, cyanosis or edema Psych: Appearance: grossly normal and well kempt Speech and movement: Normal speech and movement present Affect: normal affect Progress Note: A&P Assessment and plan (1) Bilateral carotid artery stenosis: Status: Acute Assessment and Plan: It appears that the patient did have an acute stroke. CT angiogram of the carotids demonstrates right carotid only a 25%. Written report and images of this was reviewed as well. At the current time it does not appear to be carotid disease is the source of the issues. She is stable from my perspective and can follow-up with us in approximately 3 months time for surveillance follow-up. Thank you for allowing us to assist in her care. If there are any questions or concerns please do not hesitate to contact us. Time Spent With Patient Time: Total time spent is greater than 50% in coordination of care (as documented) at patient's floor/unit and/or counseling patient: Procedures Date of Service Date of Service: 01/05/22 Quality Stroke Does the patient have a stroke diagnosis?: Yes Reason for No Anti-thrombotic by Day Two: N/A - Med Ordered VTE Prior VTE?: No VTE Risk Level:: Medical - moderate - high VTE Device Contraindication: Treatment Not Indicated VTE Drug Contraindication: N/A - Med Ordered
--- NOTE | 2022-01-05 11:08 | MHC.CM.PN ---
Patient has been medically cleared for dc to home today, no services. IMM addressed with Patient at bedside and original has been given to her and a copy has been placed on the chart.
[2022-01-05 11:12] LABS: Glucose, Whole Blood 203 mg/dL (60-115)
[2022-01-05] MEDS: Insulin Lispro 100 UNIT/ML 3 ML VIAL SUBCUT (11:18)
== END 2022-01-05 13:00 | disposition home or self-care (01) | DRG 66 ==
LOC: HO.ED 13:47 → HO.EDOVER 14:32 → HO.IMC 16:27
PROVIDERS: Admitting Provider Student in an Organized Health Care Education/Training Program; Emergency Provider Emergency Medicine; PCP Internal Medicine; Visit Provider Physician Assistant Medical
DX: I63.9 Cerebral infarction, unspecified (principal); R29.700 NIHSS score 0; E11.42 Type 2 diabetes mellitus with diabetic polyneuropathy; E87.5 Hyperkalemia; I65.21 Occlusion and stenosis of right carotid artery; I10 Essential (primary) hypertension; G83.24 Monoplegia of upper limb affecting left nondominant side; E78.5 Hyperlipidemia, unspecified; Z20.822 Contact with and (suspected) exposure to COVID-19; Z79.4 Long term (current) use of insulin; Z79.82 Long term (current) use of aspirin; Z79.84 Long term (current) use of oral hypoglycemic drugs; Z79.899 Other long term (current) drug therapy
CPT/HCPCS: 0241U; 36415; 70450; 70498; 70551; 71045; 80048; 80061; 80076; 81003; 82947; 83036; 83690; 83880; 84484; 85025; 85027; 92523; 93005; 93306; 93880; 97161; 97165; 99285; J1650; Q9967

== ENCOUNTER 2022-01-21 11:55 | Emergency (ER) | payer OTHER, SELFPAY ==
[2022-01-21 11:58] VITALS: BP 132/77; PULSE 89; RESP 18; TEMP 35.6; O2SAT 98; BMI 23.6
--- NOTE | 2022-01-21 12:17 | ED.GENADULT ---
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 Patient states that she always has back pain and is having a flare currently. Patient denies any dizziness, lightheadedness, abdominal pain, nausea, vomiting, fever, chills, blurry vision, double vision, loss of vision, chest pain, difficulty breathing, shortness of breath, night sweats, pain with urination, increased urinary frequency, increased urinary urgency, blood in her urine or stool, syncope or a near syncopal episode, recent trauma or falls, bowel incontinence, bladder incontinence, bowel retention, bladder retention, or any other complaints at this time. Onset (ago): year(s) Location: back Radiation: non-radiation Severity: mild Severity scale (1-10): 3 Quality: dull Pain Consistency: constant Relieving factors: none Exacerbating factors: none Associated symptoms: denies other symptoms Treatments prior to arrival: none Related Data Home Medications Medication Instructions Recorded Confirmed acetaminophen 650 mg 650 mg PO Q8H PRN Pain 12/28/20 01/02/22 tablet,extended release albuterol sulfate 90 mcg/actuation 2 puff inhalation Q4-6H PRN 12/28/20 01/02/22 aerosol inhaler (Ventolin HFA) Shortness Of Breath fluoxetine 40 mg capsule 40 mg PO QAM 12/28/20 01/02/22 fluticasone propionate 50 1 spray intranasal DAILY 12/28/20 01/02/22 mcg/actuation nasal spray,suspension glipizide 10 mg tablet 10 mg PO BID 12/28/20 01/02/22 metformin 1,000 mg tablet 1,000 mg PO BID 12/28/20 01/02/22 insulin glargine 100 unit/mL (3 35 unit subcut QPM 04/07/21 01/02/22 mL) subcutaneous pen (Lantus Solostar U-100 Insulin) buspirone 7.5 mg tablet 1 tab PO BID 01/02/22 01/02/22 insulin aspart U-100 100 unit/mL 0 sliding scale dose subcut TIDAC 01/02/22 01/02/22 (3 mL) subcutaneous pen (Novolog Flexpen U-100 Insulin aspart) lisinopril 5 mg tablet 1 tab PO DAILY 01/02/22 01/02/22 Previous Rx's Medication Instructions Recorded aspirin 81 mg tablet,delayed 81 mg PO DAILY 30 days #30 tabs 01/05/22 release atorvastatin 80 mg tablet 80 mg PO BEDTIME 30 days #30 tabs 01/05/22 clopidogrel 75 mg tablet 75 mg PO DAILY 30 days #30 tabs 01/05/22 cyclobenzaprine 5 mg tablet 5 mg PO TID PRN back pain 7 days 01/21/22 #21 tabs Allergies Allergy/AdvReac Type Severity Reaction Status Date / Time No Known Allergies Allergy Verified 08/17/21 14:50 [No Known Allergies*] Review of Systems Constitutional: Constitutional: Reports no additional constitutional complaints, Denies chills, Denies fever(s) and Denies night sweats Eyes: Eyes: Reports no additional eye complaints, Denies blurry vision, Denies change in vision, Denies diplopia, Denies eye discharge, Denies loss of vision and Denies eye pain ENT: Denies dizziness Cardiovascular: Cardiovascular: Reports no additional cardiovascular complaints, Denies chest pain, Denies lightheadedness, Denies Loss of Consciousness and Denies dyspnea Respiratory: Respiratory: Reports no additional respiratory complaints and Denies dyspnea Gastrointestinal: Gastrointestinal: Reports no additional gastrointestinal complaints, Denies abdominal pain, Denies melena, Denies hematochezia, Denies change in bowel habits and Denies change in stool character Genitourinary: Genitourinary: Denies hematuria, Denies urinary frequency, Denies dysuria, Denies urinary incontinence, Denies urinary hesitancy and Denies urinary urgency Musculoskeletal: Musculoskeletal: Reports no additional musculoskeletal complaints, Reports back pain, Denies numbness and Denies tingling Neurologic: Denies dizziness, Denies loss of vision, Denies numbness and Denies tingling Psychiatric: Psychiatric: Reports no additional psychiatric complaints Endocrine: Endocrine: Reports no additional endocrine complaints Hematologic/Lymphatic: Hematologic/Lymphatic: Reports no additional hematologic/lymphatic complaints Allergic/Immunologic: Allergic/Immunologic: Reports no additional allergic/immunologic complaints PMFSH Past Medical History Attestation statement: The following information was validated with the patient. Source: old records reviewed Medical History Arthritis Asthma Back pain Depression Diabetes mellitus Hypercholesterolemia Peripheral neuropathy Surgical History H/O tubal ligation History of colonoscopy Family History Family History Father Lung cancer Prostate cancer Emphysema lung Social History Social History Household Members: Family and Children Housing: Apartment Do you presently have visiting nurse or other home services: No Alcohol intake: never Patient Tobacco Use Status: Never used Tobacco e-Cigarette/Vaping Use: Never Used Second Hand Smoke Exposure: Yes Advance Directives: No Advance Directives Information Provided: Yes service: No Current occupational status: retired Current occupation: rt handed Physical Exam ED Vital Signs: Vital Signs - 24 hr 01/21/22 11:58 Temperature 96.1 F L Pulse Rate 89 Respiratory Rate 18 Blood Pressure 132/77 Pulse Oximetry 98 Oxygen Delivery Method Room Air BMI result Body Mass Index 23.6 Const General: cooperative, no acute distress, alert and awake Nutritional Appearance: well nourished Orientation/consciousness: patient oriented x3 Limitations: no limitations HENMT Head: Yes normal to inspection and Yes atraumatic Ears: hearing grossly normal bilaterally and external ears normal General nose exam: Normal external nose present, no nasal discharge noted and no epistaxis Face and sinus: Yes normal facial exam, No abrasion and No laceration Mouth: Normal oral and palatal mucosa present, no drooling and no muffled voice Eyes General: appearance normal, both eyes and all related structures Periorbital: periorbital findings normal Eyelids: Yes eyelids normal Conjunctivae: conjunctivae normal Pupils: Equal, round and reactive pupils present EOM: EOMs intact bilaterally Neck Neck: Yes normal visual inspection, Yes full ROM and Yes no lymphadenopathy Chest Chest palpation & inspection: normal inspection of the chest Resp Effort & Inspection: normal respiratory effort and able to speak in complete sentences Auscultation: clear to auscultation bilaterally Cardio Rate: regular rate Rhythm: regular rhythm GI Inspection: Yes normal to inspection General: Yes no CVA tenderness Back/Spine/Pelvis Back: no CVA tenderness Cervical Spine: normal cervical lordosis and cervical ROM normal Thoracic/Lumbar Spine: thoracic and lumbar spine normal to inspection and thoraco-lumbar ROM normal Pelvis: no pain with anterior-posterior compression Neuro General: patient oriented x3 and moves all extremities Cranial nerves: Yes Equal, round and reactive pupils present Cognition (Neuro): normal cognition Motor exam (neuro): 5/5 motor strength present throughout Sensory Exam: Normal double simultaneous stimulation for sensation Coordination: [id number] test normal Extrem General: Yes normal to inspection, Yes full ROM and Yes capillary refill normal Psych Appearance: grossly normal Mental Status: mental status grossly normal Affect: normal affect Attitude: cooperative Thought process: Normal thought process present Thought content: Normal thought content present Insight: Good insight present (Psych) Medical Decision Making MDM Narrative Medical decision making narrative: Patient is a 61 year old female presenting to the emergency department today with back pain. Patient's physical exam was unremarkable. I explained my physical exam findings to the patient. I answered all questions asked by the patient. Patient received PO Flexeril which she stated helped her symptoms significantly. I stressed the importance of the patient taking her medication as prescribed. I stressed the importance of the patient following up with her primary care provider. I stressed the importance of the patient returning to the emergency department immediately if her symptoms were to worsen or if she were to develop any dizziness, shortness of breath, difficulty breathing, chest pain, blurry vision, loss of vision, nausea, vomiting, abdominal pain, fever, chills, back pain, or any other complaints. Patient verbalized agreement and understanding with this treatment plan and discharge. Differential Diagnosis Differential Diagnosis: chronic back pain Medical Records Medical records reviewed: Yes I reviewed the patient's medical records. Discharge Plan Discharge Clinical Impression: Chronic back pain Patient Disposition: Home, Self-Care Instructions: Chronic Back Pain (DC) Additional Instructions: Follow up with your primary care provider. Return to the emergency department immediately if your symptoms worsen or if you develop any dizziness, shortness of breath, difficulty breathing, chest pain, blurry vision, loss of vision, nausea, vomiting, abdominal pain, fever, chills, back pain, or any other complaints. Prescriptions: New cyclobenzaprine 5 mg tablet 5 mg PO TID PRN (Reason: back pain) 7 Days Qty: 21 0RF No Action fluoxetine 40 mg capsule 40 mg PO QAM glipizide 10 mg tablet 10 mg PO BID acetaminophen 650 mg tablet extended release 650 mg PO Q8H PRN (Reason: Pain) metformin 1,000 mg tablet 1,000 mg PO BID albuterol sulfate [Ventolin HFA] 90 mcg/actuation HFA aerosol inhaler 2 puff inhalation Q4-6H PRN (Reason: Shortness Of Breath) fluticasone propionate 50 mcg/actuation spray,suspension 1 spray intranasal DAILY Rx Instructions: IN EACH NOSTRIL buspirone 7.5 mg tablet 1 tab PO BID lisinopril 5 mg tablet 1 tab PO DAILY insulin aspart U-100 [Novolog Flexpen U-100 Insulin] 100 unit/mL (3 mL) insulin pen 0 sliding scale dose subcut TIDAC Protocol: Insulin Correction Scale Less than or equal to 110 ---- Give (units): 0 111 to 150 Give (units): 6 151 to 200 Give (units): 8 201 to 250 Give (units): 10 251 to 300 Give (units): 12 301 to 350 Give (units): 14 Greater than 350 Give (units): 16 Call MD if Blood Glucose > : 350 aspirin 81 mg Tablet,Delayed Release (Dr/Ec) 81 mg PO DAILY 30 Days Qty: 30 0RF atorvastatin 80 mg Tablet 80 mg PO BEDTIME 30 Days Qty: 30 0RF clopidogrel 75 mg Tablet 75 mg PO DAILY 30 Days Qty: 30 0RF Lantus Solostar U-100 Insulin 100 unit/mL (3 mL) insulin pen 35 unit subcut QPM Referrals: Yolanda Priest MD [Primary Care Provider] - Interventions: ED Discharge Assessment Last Done: 01/21/22 13:05 Print Language: Yemeni
[2022-01-21] MEDS: Cyclobenzaprine HCl 5 MG TABLET PO (12:31)
== END 2022-01-21 13:09 | disposition home or self-care (01) ==
PROVIDERS: Emergency Provider Emergency Medicine Emergency Medical Services; PCP Internal Medicine
DX: M54.9 Dorsalgia, unspecified (principal); G89.29 Other chronic pain; E11.9 Type 2 diabetes mellitus without complications; J45.909 Unspecified asthma, uncomplicated
CPT/HCPCS: 99283

== ENCOUNTER → 2022-01-22 13:05 | Outpatient (REF) | payer OTHER, SELFPAY ==
--- NOTE | 2022-01-22 13:09 | ECG_ITS ---
Hook-up date: 2022-01-22 12:29:00 Duration: 25:09:00 Test Indications: HX TIA, CEREB. INFARC Medications: 967554 QRS complexes * Ventricular ectopics which represent % of total QRS comp. 22 Supraventricular ectopics which represent <1 % of total QRS comp. * Paced QRS complexs which represent % of total QRS comp. VENTRICULAR ECTOPY * Isolated * Bigeminal Cycles * Couplets * Runs * Beats in Runs * Beats LONGEST at * BPM at :: -- * Beats FASTEST at * BPM at :: -- SUPRAVENTRICULAR ECTOPY 18 Isolated 2 Couplets 0 Runs 0 Beats in Runs * Beats LONGEST at * BPM at :: -- * Beats FASTEST at * BPM at :: -- HEART RATES 64 MIN at 02:57:22 2022-01-23 88 AVG 131 MAX at 12:46:15 2022-01-22 LONGEST RR 0.9440 secs at 02:57:18 2022-01-23 S-T LEVELS Channel 1 - 128 mm at 12:29:00 2022-01-22 - 128 mm at 12:29:00 2022-01-22 Channel 2 - 128 mm at 12:29:00 2022-01-22 - 128 mm at 12:29:00 2022-01-22 Channel 3 - 128 mm at 03:14:81 -- - 128 mm at 03:14:81 Basic rhythm Normal sinus rhythm No long pause or profound bradycardia Rare Premature atrial complexes Patient did not report any symptoms in the diary Referred By: Yolanda Priest Overread By: MORRIS CRAVEN MD
== END ==
LOC: HO.CARD 13:05
PROVIDERS: Visit Provider Internal Medicine
DX: Z86.73 Personal history of transient ischemic attack (TIA), and cerebral infarction without residual deficits (principal)
CPT/HCPCS: 93225; 93226

== ENCOUNTER 2022-03-20 15:00 | Outpatient (RCR) | payer OTHER, SELFPAY ==
--- NOTE | 2022-02-15 14:59 | MHC.OT.EP ---
[address] [phone] Occupational Therapy Plan of Care Date of Evaluation: 02/15/22 Diagnosis: CVA, Left carpal tunnel syndrome and left cubital tunnel syndrome Assessment: 61 yo female presents about six weeks s/p cerebellar infarct w/ reported left UE numbness/tingling and difficulty using both her hands for day to day activities. 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 On assessment, she demo's good range and strength, but has impaired coordination B/L'ly and further testing consistent w/ ulnar and median neuropathies. She will benefit from cont'd therapy services to address cubital tunnel and carpal tunnel syndrome w/ focus as well on FMC tasks for optimal functional gains. Frequency and Duration: The patient will be seen 2x/wk for 6 weeks Short Term Goals: Ind w/ nighttime orthosis wear Ind w/ nighttime sleep modifications Good follow through w/ HEP Social Security Assessor Goals: B/L hand strength >35lb Pt to report ease of nighttime numbness/tingling with modifications Functional Dexterity Test <30 sec B/L'ly Treatment Plan: Therapeutic Exercise Therapeutic Activity Home Exercise Program Splinting Patient Education Ultrasound Paraffin Fluidotherapy MHP Joint Mobilization Soft Tissue Mobilization Kinesiotaping Nighttime resting wrist orthosis Electronically Signed By: JULIAN Santillan/L CHT Please Sign and return to therapist. Thank you once again for your referral.
--- NOTE | 2022-04-30 14:14 | MHC.OT.DC ---
[address] [phone] F: [phone] Occupational Therapy Discharge Note Provider: Dr Yolanda Priest Diagnosis: CVA, Left carpal tunnel syndrome and left cubital tunnel syndrome Date of Evaluation: 02/15/22 Date of Discharge: 04/30/22 Treatments to Date: 4 Cancellations to Date: 2 No Shows to Date: 2 Discharge Status: Patient Elected to Stop Visit Non-compliance Discharge Summary: Alice was referred to OT for left median and ulnar neuropathies. She has not attended therapy in over a month, but on last visit was reporting compliance w/ nighttime orthosis and HEP. She had been progressing w/ strengthening program and had good tolerance to exercises in therapy w/ decreased pain. Electronically Signed By: JULIAN Santillan/Vesna CALLES Reviewed/agree with student documentation: N/A Therapist: Please Sign and return to therapist, thank you for your referral.
== END 2022-04-30 14:14 | disposition home or self-care (01) ==
LOC: HO.OT 15:00
PROVIDERS: PCP Internal Medicine; Visit Provider Internal Medicine
DX: Z86.73 Personal history of transient ischemic attack (TIA), and cerebral infarction without residual deficits (principal)
CPT/HCPCS: 29125; 97110; 97166; 97760

== ENCOUNTER → 2022-04-10 13:31 | Outpatient (BNVA) | payer OTHER, SELFPAY | PROVIDERS: PCP Internal Medicine; Visit Provider Surgery Vascular Surgery | DX: I65.23 Occlusion and stenosis of bilateral carotid arteries (principal); R20.2 Paresthesia of skin | CPT/HCPCS: 99212 ==

== ENCOUNTER 2022-05-28 15:00 | Outpatient (RCR) | payer OTHER, SELFPAY ==
--- NOTE | 2022-06-25 09:41 | MHC.PT.DC ---
[facility] [place] Office [place] Office [place] Office [address] Saira Hodges [address] [phone] F: [phone] F: [phone] F: [phone] F: [phone] Physical Therapy Discharge Report Diagnosis: LOW BACK PAIN Date of Surgery: Date of Evaluation: 04/24/22 Date of Discharge: 05/29/22 Treatments to Date: 6 Cancellations to Date: 0 No Shows to Date: 0 Discharge Status: Improved Function Independent with HEP Discharge Summary: SULEMA HAD BEEN PROGRESSING WELL WITH HEP AND PT PROGRAM. AT LAST ATTENDED VISIT SHE HAD LOW PAIN LEVELS (RATED 1-2 ) AND WAS ABLE TO WALK TO HER LAST PT VISIT. SHE DID NOT SCHEDULE FURTHER VISITS AND CURRENT STATUS IS UNKNOWN. SHE DOES HAVE A COMPREHENSIVE HEP AND WE WOULD RECOMMEND SHE WOULD CONTINUE WITH HER HOME PROGRAM. Electronically signed by: DEYSI DAIGLE PT, DPT Please sign and return to therapist. Thank you for your referral.
== END 2022-06-25 09:41 | disposition home or self-care (01) ==
LOC: HO.PT 15:00
PROVIDERS: PCP Internal Medicine; Visit Provider Nurse Practitioner Family
DX: M54.16 Radiculopathy, lumbar region (principal)
CPT/HCPCS: 97110; 97112; 97140; 97161

== ENCOUNTER 2022-06-17 15:54 | Emergency (ER) | payer OTHER, SELFPAY ==
--- NOTE | 2022-06-17 | ECG_ITS ---
Test Reason : GENERAL MEDICAL Blood Pressure : / mmHG Vent. Rate : 105 BPM Atrial Rate : 105 BPM P-R Int : 142 ms QRS Dur : 070 ms QT Int : 328 ms P-R-T Axes : 047 004 063 degrees QTc Int : 433 ms Sinus tachycardia Minimal voltage criteria for LVH, may be normal variant ( R in aVL ) Nonspecific T wave abnormality Abnormal ECG When compared with ECG of 02-JAN-2022 10:36, Heart rate has increased Nonspecific T wave abnormality is new Referred By: Generic ED Physician Electronically Signed By:SUSI CORREA MD
--- NOTE | ~2022-06-17 | XR_ITS ---
EXAMINATION: XR CHEST CLINICAL INFORMATION: Question cerebrovascular accident COMPARISON: Chest x-ray of 01/02/2022 TECHNIQUE: Frontal view of the chest was obtained. FINDINGS: Stable and normal cardiomediastinal silhouette. No abnormal tracheal deviation. The lungs are mildly hypoexpanded with bronchovascular crowding. No focal consolidation, changes of congestion or pleural effusions. No pneumothorax. No acute osseous abnormality. Visualized upper abdomen is unremarkable. XR/XR chest 1V IMPRESSION: Low lung volumes with bronchovascular crowding. No acute pulmonary process.
[2022-06-17 16:04] VITALS: BP 158/74; PULSE 112; RESP 18; TEMP 36.6; O2SAT 98; BMI 24.5
[2022-06-17 16:11] LABS: Glucose, Whole Blood 375 mg/dL (60-115)
--- NOTE | 2022-06-17 16:20 | ED_ITS ---
HPI - General Adult General Chief complaint: General Medical Stated complaint: slurred speech, history of stroke Time Seen by Provider: 06/17/22 16:20 Source: patient Mode of arrival: ambulatory Limitations: no limitations History of Present Illness HPI narrative: Which is 61 years old diabetic with history of TIA with punctate infected areas in MRI done on 01/17 history of migraine, anxiety poor sleep comes here for 3 days of difficulty speaking but when she arrived seems to be normal patient was here in 01/17 for same symptoms workup was negative neuro exam was intact MRI showed only punctate stroke infarct patient is on Plavix no other focal deficits patient complaining of headache diffuse no nausea no vomiting no light sensitivity patient had similar attacks of anxiety/speech problem multiple times since initial ED visit in 01/17 Related Data Home Medications Medication Instructions Recorded Confirmed acetaminophen 650 mg 650 mg PO Q8H PRN Pain 12/28/20 01/02/22 tablet,extended release albuterol sulfate 90 mcg/actuation 2 puff inhalation Q4-6H PRN 12/28/20 01/02/22 aerosol inhaler (Ventolin HFA) Shortness Of Breath fluoxetine 40 mg capsule 40 mg PO QAM 12/28/20 01/02/22 fluticasone propionate 50 1 spray intranasal DAILY 12/28/20 01/02/22 mcg/actuation nasal spray,suspension glipizide 10 mg tablet 10 mg PO BID 12/28/20 01/02/22 metformin 1,000 mg tablet 1,000 mg PO BID 12/28/20 01/02/22 insulin glargine 100 unit/mL (3 35 unit subcut QPM 04/07/21 01/02/22 mL) subcutaneous pen (Lantus Solostar U-100 Insulin) insulin aspart U-100 100 unit/mL 0 sliding scale dose subcut TIDAC 01/02/22 01/02/22 (3 mL) subcutaneous pen (Novolog Flexpen U-100 Insulin aspart) lisinopril 5 mg tablet 1 tab PO DAILY 01/02/22 01/02/22 Previous Rx's Medication Instructions Recorded aspirin 81 mg tablet,delayed 81 mg PO DAILY 30 days #30 tabs 01/05/22 release atorvastatin 80 mg tablet 80 mg PO BEDTIME 30 days #30 tabs 01/05/22 clopidogrel 75 mg tablet 75 mg PO DAILY 30 days #30 tabs 01/05/22 cyclobenzaprine 5 mg tablet 5 mg PO TID PRN back pain 7 days 01/21/22 #21 tabs aspirin 81 mg tablet,delayed 81 mg PO DAILY #30 tabs 06/17/22 release (Adult Low Dose Aspirin) ahprtafnrg-dmhenkppgxfsl-[id number] 1 cap PO Q6H PRN headache #20 caps 06/17/22 50 mg-300 mg-40 mg capsule (Fioricet) lorazepam 0.5 mg tablet (Ativan) 0.5 mg PO BEDTIME PRN sleep #10 06/17/22 tabs Allergies Allergy/AdvReac Type Severity Reaction Status Date / Time No Known Allergies Allergy Verified 06/17/22 16:10 [No Known Allergies*] Review of Systems Review of Systems: Yes all other systems are reviewed and are negative [facility] Past Medical History Medical History Arthritis Asthma Back pain Depression Diabetes mellitus Hypercholesterolemia Peripheral neuropathy Surgical History H/O tubal ligation History of colonoscopy Family History Family History Father Lung cancer Prostate cancer Emphysema lung Social History Social History Household Members: Family and Children Housing: Apartment Do you presently have visiting nurse or other home services: No Alcohol intake: never Patient Tobacco Use Status: Never used Tobacco e-Cigarette/Vaping Use: Never Used Second Hand Smoke Exposure: Yes Advance Directives: No Advance Directives Information Provided: No service: No Current occupational status: retired Current occupation: rt handed Physical Exam ED Vital Signs: Vital Signs - 24 hr 06/17/22 16:04 Temperature 97.8 F Pulse Rate 112 H Respiratory Rate 18 Blood Pressure 158/74 H Pulse Oximetry 98 Oxygen Delivery Method Room Air BMI result Body Mass Index 24.5 Appearance: Alert. Oriented X3. No acute distress. Eyes: PERRLA, No Nystagmus ENT: Pharynx normal. Oral Mucosa moist Neck: Normal inspection. Neck supple. CVS: Normal heart rate and rhythm. Pulses normal. Respiratory: No respiratory distress. Equal air entry bilateral, no wheezing/rales/rhonchi Abdomen: Soft and nontender. Bowel sounds are present, no mass palpable, no CVA tenderness Skin: Skin warm and dry. Normal skin color. Normal skin turgor. Extremities: No lower extremity edema. No calf tenderness Neuro: Oriented X 3. No motor deficit. No sensory deficit.No cerebellar signs , cranial nerves II-XII intact NIH Stroke Scale Internal: Initial- Upon Arrival Level of Consciousness: Alert Level of Consciousness Questions: Answers both questions correctly Level of Consciousness Commands: Performs both tasks correctly Best Gaze: Normal Visual: No visual loss Facial Palsy: Normal Motor Arm (Right): No drift Motor Arm (Left): No drift Motor Leg (Right): No drift Motor Leg (Left): No drift Limb Ataxia: Absent Sensory: Normal Best Language: No aphasia Dysarthia: Normal Extinction and Inattention: No abnormality Score: 0 Medications Administered Discontinued Medications Generic Name Dose Route Start Last Admin Trade Name Freq PRN Reason Stop Dose Admin Acetaminophen/Butalbital/Caffeine 1 tab 06/17/22 16:43 06/17/22 16:49 Butalb/Acetamin/Caff 50/325/40 Tablet PO 06/17/22 16:44 1 tab ONCE ONE Administration Aspirin 81 mg 06/17/22 16:43 06/17/22 16:49 Aspirin Enteric Coated 81 Mg Tablet. PO 06/17/22 16:44 81 mg ONCE ONE Administration Insulin Human Lispro 8 unit 06/17/22 16:43 06/17/22 16:49 Insulin Lispro 100 Unit/Ml 3 Ml Vial SUBCUT 06/17/22 16:44 8 unit ONCE ONE Administration Medical Decision Making [facility] [place] Narrative Medical decision making narrative: Patient migraines anxiety comes here with 3 days of nonspecific his speech problem unable to sleep well with the same symptoms in 01/17 when she was seen by Neurology patient does have migraine headache and has anxiety with poor sleep clinically patient does not any neuro deficit patient already on Plavix with recent MRI full workup done will add baby aspirin the patient's medication advised to follow-up PCP/neurologist symptoms could be related to anxiety Patient feeling better after Fioricet headache is almost gone Lab Data Lab results reviewed: Yes I reviewed the patient's lab results. Result diagrams: 06/17/22 16:21 06/17/22 16:21 Labs: Lab Results 11/20/22 11/20/22 11/20/22 Range/Units 16:07 16:21 16:21 WBC 9.2 (4.8-10.8) X10*3/uL RBC 4.09 L (4.20-5.50) X10*6/uL Hgb 10.5 L (12.0-16.0) g/dl Hct 33.4 L (37.0-47.0) % MCV 81.7 (80.0-98.0) fL MCH 25.7 L (27.0-33.0) pg MCHC 31.4 (31.0-35.0) g/dl RDW 12.8 (11.0-16.0) % Plt Count 462 H (160-400) X10*3/uL MPV 9.5 (9.4-12.3) fL Immature Gran % (Auto) 0.1 (0.0-0.4) % Neut % (Auto) 65.2 (45-73) % Lymph % (Auto) 23.0 (20-40) % [place] % (Auto) 5.8 (2-11) % Eos % (Auto) 5.5 H (0-4) % Baso % (Auto) 0.4 (0-2) % Lymph # (Auto) 2.1 (1.2-4.9) X10*3/uL [place] # (Auto) 0.5 (0.1-1.2) X10*3/uL Eos # (Auto) 0.5 H (0.0-0.4) X10*3/uL Baso # (Auto) 0.0 (0.0-0.2) X10*3/uL Abs Immat Gran (auto) 0.01 (0.00-0.03) X10*3/uL Absolute Neuts (auto) 6.0 (2.0-8.3) x10*3/uL Absolute Nucleated RBC 0.000 (0.0-0.012) X10*3/uL Nucleated RBC % (auto) 0.0 (0.0-0.2) /100WBC PT (10.0-13.1) SEC INR (0.9-1.1) Sodium 137 (135-145) mmol/L Potassium 4.7 (3.3-5.1) mmol/L Chloride 101 (96-108) mmol/L Carbon Dioxide 25 (22-29) mmol/L Anion Gap 16 (12-20) BUN 20 H (9-16) mg/dL Creatinine 1.27 (0.5-1.4) mg/dL Estim Creat Clear Calc 37.9 Estimated GFR 43 POC Glucose 375 H* (60-115) mg/dL Random Glucose 390 H* D (60-115) mg/dL Calcium 9.7 (8.4-10.2) mg/dL Magnesium 1.5 L (1.6-2.6) mg/dL Total Bilirubin 0.3 (0.0-1.0) mg/dL Direct Bilirubin 0.2 (0.0-0.5) mg/dL AST 14 (5-31) U/L ALT 16 (0-31) U/L Alkaline Phosphatase 131 H D (39-117) U/L Troponin I High Sens (<3.5-17.0) ng/L Total Protein 7.6 (6.5-8.0) g/dL Albumin 4.2 (3.5-5.0) g/dL Acetone, Qual (Negative) COVID-19 ([facility]) (Negative) COVID-19 Clin Com 06/17/22 06/17/22 06/17/22 Range/Units 16:21 16:21 16:21 WBC (4.8-10.8) X10*3/uL RBC (4.20-5.50) X10*6/uL Hgb (12.0-16.0) g/dl Hct (37.0-47.0) % MCV (80.0-98.0) fL MCH (27.0-33.0) pg MCHC (31.0-35.0) g/dl RDW (11.0-16.0) % Plt Count (160-400) X10*3/uL MPV (9.4-12.3) fL Immature Gran % (Auto) (0.0-0.4) % Neut % (Auto) (45-73) % Lymph % (Auto) (20-40) % [place] % (Auto) (2-11) % Eos % (Auto) (0-4) % Baso % (Auto) (0-2) % Lymph # (Auto) (1.2-4.9) X10*3/uL [place] # (Auto) (0.1-1.2) X10*3/uL Eos # (Auto) (0.0-0.4) X10*3/uL Baso # (Auto) (0.0-0.2) X10*3/uL Abs Immat Gran (auto) (0.00-0.03) X10*3/uL Absolute Neuts (auto) (2.0-8.3) x10*3/uL Absolute Nucleated RBC (0.0-0.012) X10*3/uL Nucleated RBC % (auto) (0.0-0.2) /100WBC PT 10.6 (10.0-13.1) SEC INR 0.9 (0.9-1.1) Sodium (135-145) mmol/L Potassium (3.3-5.1) mmol/L Chloride (96-108) mmol/L Carbon Dioxide (22-29) mmol/L Anion Gap (12-20) BUN (9-16) mg/dL Creatinine (0.5-1.4) mg/dL Estim Creat Clear Calc Estimated GFR POC Glucose (60-115) mg/dL Random Glucose (60-115) mg/dL Calcium (8.4-10.2) mg/dL Magnesium (1.6-2.6) mg/dL Total Bilirubin (0.0-1.0) mg/dL Direct Bilirubin (0.0-0.5) mg/dL AST (5-31) U/L ALT (0-31) U/L Alkaline Phosphatase (39-117) U/L Troponin I High Sens < 3.5 (<3.5-17.0) ng/L Total Protein (6.5-8.0) g/dL Albumin (3.5-5.0) g/dL Acetone, Qual (Negative) COVID-19 ([facility]) Negative (Negative) COVID-19 Clin Com See Note 06/17/22 Range/Units 16:21 WBC (4.8-10.8) X10*3/uL RBC (4.20-5.50) X10*6/uL Hgb (12.0-16.0) g/dl Hct (37.0-47.0) % MCV (80.0-98.0) fL MCH (27.0-33.0) pg MCHC (31.0-35.0) g/dl RDW (11.0-16.0) % Plt Count (160-400) X10*3/uL MPV (9.4-12.3) fL Immature Gran % (Auto) (0.0-0.4) % Neut % (Auto) (45-73) % Lymph % (Auto) (20-40) % [place] % (Auto) (2-11) % Eos % (Auto) (0-4) % Baso % (Auto) (0-2) % Lymph # (Auto) (1.2-4.9) X10*3/uL [place] # (Auto) (0.1-1.2) X10*3/uL Eos # (Auto) (0.0-0.4) X10*3/uL Baso # (Auto) (0.0-0.2) X10*3/uL Abs Immat Gran (auto) (0.00-0.03) X10*3/uL Absolute Neuts (auto) (2.0-8.3) x10*3/uL Absolute Nucleated RBC (0.0-0.012) X10*3/uL Nucleated RBC % (auto) (0.0-0.2) /100WBC PT (10.0-13.1) SEC INR (0.9-1.1) Sodium (135-145) mmol/L Potassium (3.3-5.1) mmol/L Chloride (96-108) mmol/L Carbon Dioxide (22-29) mmol/L Anion Gap (12-20) BUN (9-16) mg/dL Creatinine (0.5-1.4) mg/dL Estim Creat Clear Calc Estimated GFR POC Glucose (60-115) mg/dL Random Glucose (60-115) mg/dL Calcium (8.4-10.2) mg/dL Magnesium (1.6-2.6) mg/dL Total Bilirubin (0.0-1.0) mg/dL Direct Bilirubin (0.0-0.5) mg/dL AST (5-31) U/L ALT (0-31) U/L Alkaline Phosphatase (39-117) U/L Troponin I High Sens (<3.5-17.0) ng/L Total Protein (6.5-8.0) g/dL Albumin (3.5-5.0) g/dL Acetone, Qual Negative (Negative) COVID-19 ([facility]) (Negative) COVID-19 Clin Com ECG Data Attestation: I personally reviewed and interpreted this ECG as follows: Interpretation: Sinus tachycardia heart rate 105 beats per minute LVH normal interval normal axis no acute ST T wave changes Discharge Plan Discharge Clinical Impression: Headache, migraine, Anxiety Patient Disposition: Home, Self-Care Instructions: Migraine Headache (ED), Anxiety (ED) Additional Instructions: Take medication for migraine as prescribed Medication to relax and sleep in the night time as needed Start taking baby aspirin 81 mg daily Increase the dose of Lantus insulin to 36 units tonight Follow with PCP Prescriptions: New eypqgmswag-vlzgmbzjmrhaq-tanv [Fioricet] 50-300-40 mg capsule 1 cap PO Q6H PRN (Reason: headache) Qty: 20 0RF lorazepam [Ativan] 0.5 mg tablet 0.5 mg PO BEDTIME PRN (Reason: sleep) Qty: 10 0RF aspirin [Adult Low Dose Aspirin] 81 mg tablet,delayed release (DR/EC) 81 mg PO DAILY Qty: 30 3RF No Action fluoxetine 40 mg capsule 40 mg PO QAM glipizide 10 mg tablet 10 mg PO BID acetaminophen 650 mg tablet extended release 650 mg PO Q8H PRN (Reason: Pain) metformin 1,000 mg tablet 1,000 mg PO BID albuterol sulfate [Ventolin HFA] 90 mcg/actuation HFA aerosol inhaler 2 puff inhalation Q4-6H PRN (Reason: Shortness Of Breath) fluticasone propionate 50 mcg/actuation spray,suspension 1 spray intranasal DAILY Rx Instructions: IN EACH NOSTRIL lisinopril 5 mg tablet 1 tab PO DAILY insulin aspart U-100 [Novolog Flexpen U-100 Insulin] 100 unit/mL (3 mL) insulin pen 0 sliding scale dose subcut TIDAC Protocol: Insulin Correction Scale Less than or equal to 110 ---- Give (units): 0 111 to 150 Give (units): 6 151 to 200 Give (units): 8 201 to 250 Give (units): 10 251 to 300 Give (units): 12 301 to 350 Give (units): 14 Greater than 350 Give (units): 16 Call MD if Blood Glucose > : 350 aspirin 81 mg Tablet,Delayed Release (Dr/Ec) 81 mg PO DAILY 30 Days Qty: 30 0RF atorvastatin 80 mg Tablet 80 mg PO BEDTIME 30 Days Qty: 30 0RF clopidogrel 75 mg Tablet 75 mg PO DAILY 30 Days Qty: 30 0RF cyclobenzaprine 5 mg tablet 5 mg PO TID PRN (Reason: back pain) 7 Days Qty: 21 0RF Lantus Solostar U-100 Insulin 100 unit/mL (3 mL) insulin pen 35 unit subcut QPM
[2022-06-17 16:29] LABS: MANUAL DIFF FLAG NO
[2022-06-17 16:34] LABS: Basophils Percent Auto 0.4 % (0-2); Eosinophils Absolute Auto 0.5 X10*3/uL (0.0-0.4); Eosinophils Percent Auto 5.5 % (0-4); Hematocrit 33.4 % (37.0-47.0); Hemoglobin 10.5 g/dl (12.0-16.0); Imm Gran Abs Auto 0.01 X10*3/uL (0.00-0.03); Imm Gran Pct Auto 0.1 % (0.0-0.4); Lymphocytes Absolute Auto 2.1 X10*3/uL (1.2-4.9); Mean Corpuscular HGB Conc 31.4 g/dl (31.0-35.0); Mean Corpuscular Hemoglobin 25.7 pg (27.0-33.0); Mean Corpuscular Volume 81.7 fL (80.0-98.0); Mean Platelet Volume 9.5 fL (9.4-12.3); Monocytes Absolute Auto 0.5 X10*3/uL (0.1-1.2); Monocytes Percent Auto 5.8 % (2-11); Neutrophils Percent Auto 65.2 % (45-73); Platelet Count 462 X10*3/uL (160-400); Red Blood Count 4.09 X10*6/uL (4.20-5.50); Red Cell Distribution Width 12.8 % (11.0-16.0); White Blood Count 9.2 X10*3/uL (4.8-10.8)
[2022-06-17 16:39] LABS: INTERNATIONAL NORM RATIO 0.9 (0.9-1.1); Prothrombin Time 10.6 SEC (10.0-13.1)
[2022-06-17 16:42] LABS: Acetone, serum QL Negative (Negative); COVID-19 Test Negative (Negative); IDNOW Serial# 55D5AD1C
[2022-06-17] MEDS: Insulin Lispro 100 UNIT/ML 3 ML VIAL 8 UNIT SUBCUT (16:49)
[2022-06-17] MEDS: Butalb/Acetamin/Caff 50/325/40 TABLET 1 TAB PO (16:49)
[2022-06-17] MEDS: Aspirin Enteric Coated 81 MG TABLET.DR PO (16:49)
[2022-06-17 16:55] LABS: Troponin-I High Sensitivity < 3.5 ng/L (<3.5-17.0)
[2022-06-17 17:03] LABS: Alanine Aminotransferase 16 U/L (0-31); Albumin Level 4.2 g/dL (3.5-5.0); Alkaline Phosphatase 131 U/L (39-117); Anion Gap 16 (12-20); Aspartate Amino Transferase 14 U/L (5-31); Bilirubin Direct 0.2 mg/dL (0.0-0.5); Bilirubin Total 0.3 mg/dL (0.0-1.0); Blood Urea Nitrogen 20 mg/dL (9-16); Calcium 9.7 mg/dL (8.4-10.2); Carbon Dioxide 25 mmol/L (22-29); Chloride 101 mmol/L (96-108); Creatinine Clr Calc Pharmacy 37.9; Estimated Glomerular Filt Rate 43; Glucose Random 390 mg/dL (60-115); Magnesium 1.5 mg/dL (1.6-2.6); Potassium 4.7 mmol/L (3.3-5.1); Sodium 137 mmol/L (135-145); Total Protein 7.6 g/dL (6.5-8.0)
== END 2022-06-18 00:59 | disposition home or self-care (01) ==
PROVIDERS: Physician Assistant; Emergency Provider Internal Medicine; PCP Internal Medicine
DX: G43.909 Migraine, unspecified, not intractable, without status migrainosus (principal); R00.0 Tachycardia, unspecified; R47.81 Slurred speech; F41.1 Generalized anxiety disorder; F43.0 Acute stress reaction; Z20.822 Contact with and (suspected) exposure to COVID-19; Z86.73 Personal history of transient ischemic attack (TIA), and cerebral infarction without residual deficits; Z79.899 Other long term (current) drug therapy
CPT/HCPCS: 36415; 71045; 80048; 80076; 82009; 82947; 83735; 84484; 85025; 85610; 87635; 93005; 99283

== ENCOUNTER 2022-08-16 11:19 | Emergency (ER) | payer OTHER, SELFPAY ==
[2022-08-16 11:34] VITALS: BP 158/74; PULSE 97; RESP 7; TEMP 36.6; O2SAT 99; BMI 23.3
--- NOTE | 2022-08-16 11:36 | ED.EXTPRO ---
HPI - Extremity Problem General Chief complaint: Extremity Injury, Lower Stated complaint: finger, diabetic Time Seen by Provider: 08/16/22 11:36 Source: patient Mode of arrival: ambulatory Limitations: no limitations History of Present Illness HPI Narrative: 61-year-old lady with PMH of diabetes, HLD, depression, asthma presenting to the ED c c/o of Right great toe pain/swelling since she trimmed her toe nails two nights ago. Denies any fevers, spreading redness, paresthesias, injury to the area or, recent falls or trauma or any other symptoms complaints or concerns at this time. MD Complaint: extremity pain Onset (ago): day(s) (Since yesterday) Pain Consistency: constant Location: right and toe (Great toenail) Quality: aching Radiation: none Relieving factors: nothing Exacerbating factors: palpation Associated symptoms: denies other symptoms Context: other (Recent nail trimming) Related Data Home Medications Medication Instructions Recorded Confirmed acetaminophen 650 mg 650 mg PO Q8H PRN Pain 12/28/20 01/02/22 tablet,extended release albuterol sulfate 90 mcg/actuation 2 puff inhalation Q4-6H PRN 12/28/20 01/02/22 aerosol inhaler (Ventolin HFA) Shortness Of Breath fluoxetine 40 mg capsule 40 mg PO QAM 12/28/20 01/02/22 fluticasone propionate 50 1 spray intranasal DAILY 12/28/20 01/02/22 mcg/actuation nasal spray,suspension glipizide 10 mg tablet 10 mg PO BID 12/28/20 01/02/22 metformin 1,000 mg tablet 1,000 mg PO BID 12/28/20 01/02/22 insulin glargine 100 unit/mL (3 35 unit subcut QPM 04/07/21 01/02/22 mL) subcutaneous pen (Lantus Solostar U-100 Insulin) insulin aspart U-100 100 unit/mL 0 sliding scale dose subcut TIDAC 01/02/22 01/02/22 (3 mL) subcutaneous pen (Novolog FlexPen U-100 Insulin aspart) lisinopril 5 mg tablet 1 tab PO DAILY 01/02/22 01/02/22 Previous Rx's Medication Instructions Recorded aspirin 81 mg tablet,delayed 81 mg PO DAILY 30 days #30 tabs 01/05/22 release atorvastatin 80 mg tablet 80 mg PO BEDTIME 30 days #30 tabs 01/05/22 clopidogrel 75 mg tablet 75 mg PO DAILY 30 days #30 tabs 01/05/22 cyclobenzaprine 5 mg tablet 5 mg PO TID PRN back pain 7 days 01/21/22 #21 tabs aspirin 81 mg tablet,delayed 81 mg PO DAILY #30 tabs 06/17/22 release (Adult Low Dose Aspirin) [id number]-txleqenezwvpj-gmulelse 1 cap PO Q6H PRN headache #20 caps 06/17/22 50 mg-300 mg-40 mg capsule (Fioricet) lorazepam 0.5 mg tablet (Ativan) 0.5 mg PO BEDTIME PRN sleep #10 06/17/22 tabs acetaminophen 300 mg-codeine 30 mg 1 tab PO Q8H PRN pain #14 tabs 08/16/22 tablet cephalexin 500 mg tablet 500 mg PO Q6H 10 days #40 tabs 08/16/22 ciclopirox 8 %-fluconazole 1 1 ml topical TID Nail fungus #15 08/16/22 %-terbinafine 1 % topical solution grams doxycycline monohydrate 100 mg 100 mg PO BID 10 days #20 tabs 08/16/22 tablet Allergies Allergy/AdvReac Type Severity Reaction Status Date / Time No Known Allergies Allergy Verified 06/17/22 16:10 [No Known Allergies*] Review of Systems Review of Systems: Constitutional : No Weight loss, No Fever, No Chills, No Night Sweats, No Fatigue, No Malaise ENT/Mouth : No Hearing loss, No Ear Pain, No Nasal Congestion, No Sinus Pain, No Hoarseness, No sore throat, No Rhinorrhea, No Swallowing Difficulty Eyes: No Eye Pain, No Swelling, No Redness, No Foreign Body, No Discharge, No Vision Changes Cardiovascular : No Chest Pain, No SOB, No Dyspnea on Exertion, No Orthopnea, No Edema, No Palpitations Respiratory : No Cough, No Sputum, No Wheezing, No Smoke Exposure, No Dyspnea Gastrointestinal : No Nausea, No Vomiting, No Diarrhea, No Constipation, No abdominal Pain, No Hematochezia, No Melena Genitourinary : no irregular bleeding, No Dysuria, No Urinary Frequency, No Hematuria, No Urinary Incontinence, No Urgency, No Flank Pain, No Urinary Flow Changes, No Hesitancy Musculoskeletal : No joint pain, No Myalgias, No Joint Swelling Skin : + fungal with mild redness to the right great toe and tenderness palpation, No Skin Lesions, No rash Neuro : No Weakness, No Numbness, No Paresthesias, No Loss of Consciousness, No Dizziness, No Headache Psych : No Anxiety/Panic, No Depression, No SI/HI/AH/VH, No Social Issues, Heme/Lymph: No Bruising, No Bleeding,No Lymphadenopathy Endocrine : No Polyuria, No Polydipsia, No Temperature Intolerance Yes all other systems are reviewed and are negative COUNT INCLUDES THE [facility] Past Medical History Attestation statement: The following information was validated with the patient. Source: old records reviewed and nursing notes reviewed Medical History Arthritis Asthma Back pain Depression Diabetes mellitus Hypercholesterolemia Peripheral neuropathy Surgical History H/O tubal ligation History of colonoscopy Family History Family History Father Lung cancer Prostate cancer Emphysema lung Social History Social History Household Members: Family and Children Housing: Apartment Do you presently have visiting nurse or other home services: No Alcohol intake: never Patient Tobacco Use Status: Never used Tobacco e-Cigarette/Vaping Use: Never Used Second Hand Smoke Exposure: Yes Advance Directives: No Advance Directives Information Provided: Yes service: No Current occupational status: retired Current occupation: rt handed Physical Exam Vital Signs: Vital Signs: Last Vital Signs Temp 98 F 08/16/22 11:34 Pulse 97 08/16/22 11:34 Resp 7 L 08/16/22 11:34 BP 158/74 H 08/16/22 11:34 Pulse Ox 99 08/16/22 11:34 O2 Del Method 08/16/22 11:34 BMI result Body Mass Index 23.3 vital signs have been reviewed as normal and appeared to be correct. Blood pressure normal Heart rate normal. Respiration rate normal. Temperature normal. Oxygen saturation normal. Appearance: Alert. Oriented X3. No acute distress. Head: Normal external exam. Normocephalic. Atraumatic. Eyes: PERRLA. EOMI. Conjunctiva and sclera normal. Eyelids normal. ENT: Pharynx normal. Uvula midline. Moist mucous membranes. Neck: Normal inspection. Neck supple. FROM. CVS: Normal heart rate and rhythm. Respiratory: No respiratory distress. Painless inspiration. Skin: Skin warm and dry. Normal skin color. Normal skin turgor. No rashes/lesions/lacerations noted. Extremities: To right great toe patient has onychomycosis with mild surrounding erythema around the nail bed not consistent with the abscess or paronychia at this time. No streaking is noted. Otherwise all other Extremities exhibit normal range of motion and nontender. Neuro: Oriented X 3. No motor deficit. No sensory deficit. Reflexes normal. Normal steady gait. No focal neuro deficits noted. Vascular: + radial pulses/+ 2 distal pedal pulses/+2 dorsalis pedis b/l. Normal cap refill. No cyanosis noted to upper extremity nails and lower extremity toes nails. Course Course Course Narrative: 61-year-old lady with PMH of diabetes, HLD, depression, asthma presenting to the ED c c/o of Right great toe pain/swelling since she trimmed her toe nails two nights ago. Denies any fevers, spreading redness, paresthesias, injury to the area or, recent falls or trauma or any other symptoms complaints or concerns at this time. On exam she is noted to have onychomycosis to right great toenail and mild erythema around the nail bed otherwise no streaking is noted. Not consistent with sepsis/septic joint/foreign body/abscess/osteomyelitis at this time. There is no lower extremity edema or calf tenderness noted. Therefore at this time will DC home antibiotics and symptomatic treatment instructions return if any new or worsening symptom or referral to a hydroelectric plant structural engineer. Patient understands agrees with this plan. Discharge Plan Discharge Clinical Impression: Onychomycosis of left great toe, Cellulitis of great toe of left foot Patient Disposition: Home, Self-Care Instructions: Cellulitis (ED) Prescriptions: New doxycycline monohydrate 100 mg tablet 100 mg PO BID 10 Days Qty: 20 0RF cephalexin 500 mg tablet 500 mg PO Q6H 10 Days Qty: 40 0RF acetaminophen-codeine 300-30 mg tablet 1 tab PO Q8H PRN (Reason: pain) Qty: 14 0RF yypnthvzsv-vmvumyososy-mtkmebw 8-1-1 % solution 1 ml topical TID Qty: 15 0RF No Action fluoxetine 40 mg capsule 40 mg PO QAM glipizide 10 mg tablet 10 mg PO BID acetaminophen 650 mg tablet extended release 650 mg PO Q8H PRN (Reason: Pain) metformin 1,000 mg tablet 1,000 mg PO BID albuterol sulfate [Ventolin HFA] 90 mcg/actuation HFA aerosol inhaler 2 puff inhalation Q4-6H PRN (Reason: Shortness Of Breath) fluticasone propionate 50 mcg/actuation spray,suspension 1 spray intranasal DAILY Rx Instructions: IN EACH NOSTRIL lisinopril 5 mg tablet 1 tab PO DAILY insulin aspart U-100 [Novolog FlexPen U-100 Insulin] 100 unit/mL (3 mL) insulin pen 0 sliding scale dose subcut TIDAC Protocol: Insulin Correction Scale Less than or equal to 110 ---- Give (units): 0 111 to 150 Give (units): 6 151 to 200 Give (units): 8 201 to 250 Give (units): 10 251 to 300 Give (units): 12 301 to 350 Give (units): 14 Greater than 350 Give (units): 16 Call MD if Blood Glucose > : 350 aspirin 81 mg Tablet,Delayed Release (Dr/Ec) 81 mg PO DAILY 30 Days Qty: 30 0RF atorvastatin 80 mg Tablet 80 mg PO BEDTIME 30 Days Qty: 30 0RF clopidogrel 75 mg Tablet 75 mg PO DAILY 30 Days Qty: 30 0RF cyclobenzaprine 5 mg tablet 5 mg PO TID PRN (Reason: back pain) 7 Days Qty: 21 0RF nulhjcatrn-znhuihqoaevui-fcon [Fioricet] 50-300-40 mg capsule 1 cap PO Q6H PRN (Reason: headache) Qty: 20 0RF lorazepam [Ativan] 0.5 mg tablet 0.5 mg PO BEDTIME PRN (Reason: sleep) Qty: 10 0RF aspirin [Adult Low Dose Aspirin] 81 mg tablet,delayed release (DR/EC) 81 mg PO DAILY Qty: 30 3RF Lantus Solostar U-100 Insulin 100 unit/mL (3 mL) insulin pen 35 unit subcut QPM Referrals: Aliyah Polk [Primary Care Provider] - 2 days Fausto Brennan [Physician] - 2 days Interventions: ED Discharge Assessment Last Done: 08/16/22 12:23 Discharge Date/Time: 08/16/22 12:24
== END 2022-08-16 12:24 | disposition home or self-care (01) ==
PROVIDERS: Emergency Provider Emergency Medicine Emergency Medical Services
DX: B35.1 Tinea unguium (principal); L03.032 Cellulitis of left toe
CPT/HCPCS: 99282; 99283

== ENCOUNTER 2022-09-10 09:52 | Outpatient (REF) | payer OTHER, SELFPAY ==
--- NOTE | ~2022-09-10 | US_ITS ---
EXAMINATION: US EXTRACRANIAL CAROTID DUPLEX, BILATERAL CLINICAL INFORMATION: Carotid artery disease. COMPARISON: Carotid ultrasound 01/02/2022 TECHNIQUE: Real-time ultrasound and Doppler techniques (integrating B-mode 2-D vascular images, Doppler spectral analysis and color-flow Doppler imaging) were utilized to interrogate the extracranial carotid arteries, the vertebral arteries and proximal subclavian arteries bilaterally. The degree of stenosis is determined by criteria similar to NASCET. FINDINGS: Right Side: 1. There is mild atherosclerotic plaque seen in the bifurcation/proximal ICA region. 2. The common carotid artery PSV proximally is 101 cm/s and distally 83 cm/s. 3. The proximal internal carotid artery velocities are 134 cm/s systolic and 39 cm/s diastolic. 4. The proximal external carotid artery PSV is 116 cm/s. 5. The vertebral artery shows antegrade flow. 6. The subclavian artery waveforms are normal. Left Side: 1. There is mild atherosclerotic plaque seen in the bifurcation/proximal ICA region. 2. The common carotid artery PSV proximally is 99 cm/s and distally 81 cm/s. 3. The proximal internal carotid artery velocities are 75 cm/s systolic and 24 cm/s diastolic. 4. The proximal external carotid artery PSV is 107 cm/s. 5. The vertebral artery shows antegrade flow. 6. The subclavian artery waveforms are normal. US/US carotid duplex BI IMPRESSION: 1. RIGHT: Moderate, hemodynamically significant stenosis of the proximal right internal carotid artery corresponding to a 50-79% stenosis by velocity criteria. 2. LEFT: Minimal, non-hemodynamically significant stenosis of the proximal left internal carotid artery corresponding to a 0-49% stenosis by velocity criteria. 3. There is no change in the category severity of disease when compared to the previous study dated 01/02/2022.
== END 2022-09-10 09:53 | disposition home or self-care (01) ==
LOC: HO.US 09:52
PROVIDERS: PCP Internal Medicine; Visit Provider Surgery Vascular Surgery
DX: I65.23 Occlusion and stenosis of bilateral carotid arteries (principal)
CPT/HCPCS: 93880

== ENCOUNTER 2022-10-07 11:35 | Emergency (ER) | payer OTHER, SELFPAY ==
--- NOTE | ~2022-10-07 | XR_ITS ---
EXAMINATION: BILATERAL KNEES CLINICAL INFORMATION: Bilateral knee pain COMPARISON: April 02, 2021 TECHNIQUE: 4 views of each knee FINDINGS: Left knee: There is no evidence of acute fracture or dislocation of the left knee. Left knee joint spaces are maintained. There is mild marginal spurring about the lateral joint space compartment. No left knee effusion is seen. Vascular calcifications are present. Right knee: There is no evidence of acute fracture or dislocation of the right knee. Right knee joint spaces are maintained. There is a small suprapatellar effusion. Vascular calcifications are present. XR/XR knee RT 4V IMPRESSION: No significant left knee abnormality appreciated. No bony abnormality of the right knee identified. Small suprapatellar effusion.
--- NOTE | ~2022-10-07 | US_ITS ---
EXAMINATION: US VENOUS ULTRASOUND WITH DOPPLER LOWER EXTREMITY, RIGHT CLINICAL INFORMATION: Pain behind the knee COMPARISON: None TECHNIQUE: Ultrasound of the deep veins is performed from the hip to the calf with compression sonography and color and pulse Doppler assessment. Spectral analysis with color-flow imaging is performed. FINDINGS: There is normal venous compression and respiratory variation and augmented flow. The visualized common femoral vein, superficial femoral vein, profunda femoral vein, popliteal vein, and the trifurcation region shows no evidence of deep venous thrombosis. There is noted to be a popliteal fossa fluid collection measuring approximately 3.6 x 0.8 x 3.0 cm in size. No popliteal artery aneurysm. US/US venous duplex LE RT IMPRESSION: No acute DVT demonstrated in the right lower extremity. Popliteal fossa cyst.
--- NOTE | ~2022-10-07 | XR_ITS ---
EXAMINATION: BILATERAL KNEES CLINICAL INFORMATION: Bilateral knee pain COMPARISON: April 02, 2021 TECHNIQUE: 4 views of each knee FINDINGS: Left knee: There is no evidence of acute fracture or dislocation of the left knee. Left knee joint spaces are maintained. There is mild marginal spurring about the lateral joint space compartment. No left knee effusion is seen. Vascular calcifications are present. Right knee: There is no evidence of acute fracture or dislocation of the right knee. Right knee joint spaces are maintained. There is a small suprapatellar effusion. Vascular calcifications are present. XR/XR knee LT 4V IMPRESSION: No significant left knee abnormality appreciated. No bony abnormality of the right knee identified. Small suprapatellar effusion.
[2022-10-07 11:58] VITALS: BP 138/63; PULSE 91; RESP 16; TEMP 36.4; O2SAT 98; BMI 23.8
--- NOTE | 2022-10-07 11:58 | ED.EXTPRO ---
HPI - Extremity Problem General Chief complaint: Extremity Problem <KEANU Contreras - Last Filed: 10/07/22 12:06> Stated complaint: Bilateral knee pain <KEANU Contreras - Last Filed: 10/07/22 12:06> Time Seen by Provider: 10/07/22 12:32 <KEANU Contreras - Last Filed: 10/07/22 12:06> Source: patient <KEANU Cortes - Last Filed: 10/07/22 19:18> Mode of arrival: ambulatory <KEANU Cortes - Last Filed: 10/07/22 19:18> History of Present Illness HPI Narrative: 61-year-old female with a past medical history of arthritis, asthma, diabetes, HLD, peripheral neuropathy, CVA, presenting to the ED complaining of bilateral knee pain greater on the right x3 months s/p mechanical trip and fall. Denies head trauma or LOC. Reports worsening pain over the past 3 days after falling on knees again. denies symptoms prior to fall. Denies fever, chills, calf pain, pedal edema, recent travel, oral OCPs, cigarette smoking. <KEANU Cortes - Last Filed: 10/07/22 19:18> MD Complaint: extremity pain <KEANU Cortes - Last Filed: 10/07/22 19:18> Onset (ago): month(s) <KEANU Cortes - Last Filed: 10/07/22 19:18> Related Data Home medications: Home Medications Medication Instructions Recorded Confirmed acetaminophen 650 mg 650 mg PO Q8H PRN Pain 12/28/20 01/02/22 tablet,extended release albuterol sulfate 90 mcg/actuation 2 puff inhalation Q4-6H PRN 12/28/20 01/02/22 aerosol inhaler (Ventolin HFA) Shortness Of Breath fluoxetine 40 mg capsule 40 mg PO QAM 12/28/20 01/02/22 fluticasone propionate 50 1 spray intranasal DAILY 12/28/20 01/02/22 mcg/actuation nasal spray,suspension glipizide 10 mg tablet 10 mg PO BID 12/28/20 01/02/22 metformin 1,000 mg tablet 1,000 mg PO BID 12/28/20 01/02/22 insulin glargine 100 unit/mL (3 35 unit subcut QPM 04/07/21 01/02/22 mL) subcutaneous pen (Lantus Solostar U-100 Insulin) insulin aspart U-100 100 unit/mL 0 sliding scale dose subcut TIDAC 01/02/22 01/02/22 (3 mL) subcutaneous pen (Novolog FlexPen U-100 Insulin aspart) lisinopril 5 mg tablet 1 tab PO DAILY 01/02/22 01/02/22 Previous Rx's Medication Instructions Recorded aspirin 81 mg tablet,delayed 81 mg PO DAILY 30 days #30 tabs 01/05/22 release atorvastatin 80 mg tablet 80 mg PO BEDTIME 30 days #30 tabs 01/05/22 clopidogrel 75 mg tablet 75 mg PO DAILY 30 days #30 tabs 01/05/22 cyclobenzaprine 5 mg tablet 5 mg PO TID PRN back pain 7 days 01/21/22 #21 tabs aspirin 81 mg tablet,delayed 81 mg PO DAILY #30 tabs 06/17/22 release (Adult Low Dose Aspirin) ddsgnqowhd-rysggltykwnff-ocvprryf 1 cap PO Q6H PRN headache #20 caps 06/17/22 50 mg-300 mg-40 mg capsule (Fioricet) lorazepam 0.5 mg tablet (Ativan) 0.5 mg PO BEDTIME PRN sleep #10 06/17/22 tabs acetaminophen 300 mg-codeine 30 mg 1 tab PO Q8H PRN pain #14 tabs 08/16/22 tablet cephalexin 500 mg tablet 500 mg PO Q6H 10 days #40 tabs 08/16/22 ciclopirox 8 %-fluconazole 1 1 ml topical TID Nail fungus #15 08/16/22 %-terbinafine 1 % topical solution grams doxycycline monohydrate 100 mg 100 mg PO BID 10 days #20 tabs 08/16/22 tablet <KEANU Contreras - Last Filed: 10/07/22 12:06> Allergies/Adverse reactions: Allergies Allergy/AdvReac Type Severity Reaction Status Date / Time No Known Allergies Allergy Verified 06/17/22 16:10 [No Known Allergies*] <KEANU Contreras - Last Filed: 10/07/22 12:06> Review of Systems Review of Systems: Constitutional: No Fever, No Chills ENT/Mouth: No Ear Pain, No Nasal Congestion, No Sinus Pain, No Hoarseness, No sore throat, No Rhinorrhea, No Swallowing Difficulty Cardiovascular: No Chest Pain, No SOB Respiratory: No Cough, No Sputum, No Wheezing Gastrointestinal: No Nausea, No Vomiting, No Diarrhea, No Constipation, No Abdominal pain Genitourinary: No Dysuria, No Urinary Frequency, No Hematuria, No Flank Pain Musculoskeletal: + joint pain, No Myalgias, + Joint Swelling Skin: No Skin Lesions, No rash Neuro: No Weakness, No Numbness, No Paresthesias <KEANU Cortes - Last Filed: 10/07/22 19:18> Yes all other systems are reviewed and are negative <KEANU Cortes - Last Filed: 10/07/22 19:18> Constitutional: Constitutional: Reports as per HPI <KEANU Cortes - Last Filed: 10/07/22 19:18> [facility] Past Medical History Attestation statement: The following information was validated with the patient. <KEANU Cortes - Last Filed: 10/07/22 19:18> Medical History: Medical History Arthritis Asthma Back pain Depression Diabetes mellitus Hypercholesterolemia Peripheral neuropathy <KEANU Contreras - Last Filed: 10/07/22 12:06> Surgical History: Surgical History H/O tubal ligation History of colonoscopy <KEANU Contreras - Last Filed: 10/07/22 12:06> Family History Family History: Family History Father Lung cancer Prostate cancer Emphysema lung <KEANU Contreras - Last Filed: 10/07/22 12:06> Social History Social History: Social History Household Members: Family and Children Housing: Apartment Do you presently have visiting nurse or other home services: No Alcohol intake: never Patient Tobacco Use Status: Never used Tobacco e-Cigarette/Vaping Use: Never Used Second Hand Smoke Exposure: Yes Advance Directives: No Advance Directives Information Provided: No service: No Current occupational status: retired Current occupation: rt handed <KEANU Contreras - Last Filed: 10/07/22 12:06> Physical Exam Vital Signs: Vital Signs: Last Vital Signs Temp 97.6 F 10/07/22 11:58 Pulse 88 10/07/22 13:54 Resp 16 10/07/22 13:54 BP 187/93 H 10/07/22 13:54 Pulse Ox 99 10/07/22 13:54 O2 Del Method 10/07/22 13:54 BMI result Body Mass Index 23.8 <KEANU Contreras - Last Filed: 10/07/22 12:06> Vital Signs: Last Vital Signs Temp 97.6 F 10/07/22 11:58 Pulse 88 10/07/22 13:54 Resp 16 10/07/22 13:54 BP 187/93 H 10/07/22 13:54 Pulse Ox 99 10/07/22 13:54 O2 Del Method 10/07/22 13:54 BMI result Body Mass Index 23.8 <KEANU Cortes - Last Filed: 10/07/22 19:18> Const: General: cooperative, healthy appearing and no acute distress <KEANU Cortes - Last Filed: 10/07/22 19:18> Orientation/consciousness: patient oriented x3 <KEANU Cortes - Last Filed: 10/07/22 19:18> Limitations: no limitations <KEANU Cortes - Last Filed: 10/07/22 19:18> HEENT: Head: Yes normal to inspection and Yes atraumatic <KEANU Cortes - Last Filed: 10/07/22 19:18> Ears: hearing grossly normal bilaterally <KEANU Cortes - Last Filed: 10/07/22 19:18> General nose exam: Normal external nose present <KEANU Cortes - Last Filed: 10/07/22 19:18> Face and sinus: Yes normal facial exam <KEANU Cortes - Last Filed: 10/07/22 19:18> Eyes: General: appearance normal, both eyes and all related structures <KEANU Cortes - Last Filed: 10/07/22 19:18> EOM: EOMs intact bilaterally <Fernanda Quiroga PA - Last Filed: 10/07/22 19:18> Neck: Neck: Yes normal visual inspection and Yes no meningeal signs <Fernanda Quiroga PA - Last Filed: 10/07/22 19:18> Resp: Effort & Inspection: normal respiratory effort and no respiratory distress <Fernanda Quiroga PA - Last Filed: 10/07/22 19:18> Cardio: Rate: regular rate <Fernanda Quiroga PA - Last Filed: 10/07/22 19:18> Heart sounds: S1 normal heart sound present and S2 normal heart sound present <Fernanda Quiroga PA - Last Filed: 10/07/22 19:18> Peripheral pulses: dorsalis pedis present <Fernanda Quiroga PA - Last Filed: 10/07/22 19:18> Skin: Rashes: no rashes <Fernanda Quiroga PA - Last Filed: 10/07/22 19:18> Wounds: no wounds <Fernanda Quiroga PA - Last Filed: 10/07/22 19:18> Neuro: General: patient oriented x3, tone normal, moves all extremities and no meningeal signs <Fernanda Quiroga PA - Last Filed: 10/07/22 19:18> Extrem: Other: + mild swelling to right knee, No erythema/warmth or crepitus. Diffusely tender to palpation. Slightly Limited flexion secondary to pain. Neurovascular intact distally Left knee with mild tenderness, no appreciable deformity. NV intact distally <Fernanda Quiroga PA - Last Filed: 10/07/22 19:18> General: Yes no pedal edema and Yes no calf tenderness <Fernanda Quiroga PA - Last Filed: 10/07/22 19:18> Course Course Course Narrative: RME - 61 yo female with history of stroke, bilateral carotid arterty stenosis, hx left foot fracture presenting to the ER for evaluation of bilateral knee pain for the last 3 days, R>L. Had a fall onto her knees 3 months ago and has been having some pain since. Acutely worse on Saturday, no new injury. Reports right leg pain, swelling and pain behind the right knee. Clinic sent her here to r/o blood clot. Arrives to triage room with antalgic gait, using a cane. Right knee mildly swollen Plan: XRs to assess for arthritic changes, effusion. LE U/S RLE ordered <KEANU Contreras - Last Filed: 10/07/22 12:06> RME - 61 yo female with history of stroke, bilateral carotid arterty stenosis, hx left foot fracture presenting to the ER for evaluation of bilateral knee pain for the last 3 days, R>L. Had a fall onto her knees 3 months ago and has been having some pain since. Acutely worse on Saturday, no new injury. Reports right leg pain, swelling and pain behind the right knee. Clinic sent her here to r/o blood clot. Arrives to triage room with antalgic gait, using a cane. Right knee mildly swollen Plan: XRs to assess for arthritic changes, effusion. LE U/S RLE ordered US venous duplex LE RT IMPRESSION: No acute DVT demonstrated in the right lower extremity. Popliteal fossa cyst. XR knee RT 4V/XR knee LT 4V IMPRESSION: No significant left knee abnormality appreciated. No bony abnormality of the right knee identified. Small suprapatellar effusion.? >> Waylon wraps applied for comfort and stability <KEANU Cortes - Last Filed: 10/07/22 19:18> Medications Administered Discontinued Medications Generic Name Dose Route Start Last Admin Trade Name Freq PRN Reason Stop Dose Admin Ketorolac Tromethamine 30 mg 10/07/22 14:12 10/07/22 14:20 Ketorolac Tromethamine 30 Mg/Ml Vial IM 10/07/22 14:13 30 mg ONCE ONE Administration <KEANU Contreras - Last Filed: 10/07/22 12:06> Medications Administered Discontinued Medications Generic Name Dose Route Start Last Admin Trade Name Freq PRN Reason Stop Dose Admin Ketorolac Tromethamine 30 mg 10/07/22 14:12 10/07/22 14:20 Ketorolac Tromethamine 30 Mg/Ml Vial IM 10/07/22 14:13 30 mg ONCE ONE Administration <KEANU Cortes - Last Filed: 10/07/22 19:18> Medical Decision Making Medical Decision Making MDM Narrative: 61-year-old female with a past medical history of arthritis, asthma, diabetes, HLD, peripheral neuropathy, CVA, presenting to the ED complaining of bilateral knee pain greater on the right x3 months s/p mechanical trip and fall. On exam vital signs stable, NAD, nontoxic appearing, physical exam as noted above. Concern for sprain versus meniscal/tendon or ligamental injury. Lower suspicion for fracture or septic joint/arthritis. Lower suspicion for DVT/PE Plan: X-rays, ultrasound ordered in triage Please refer to course for remaining clinical decision making, interpretation of labs/imaging results, and discussions with consultants and/or family members. <KEANU Cortes - Last Filed: 10/07/22 19:18> Differential Diagnosis Differential Diagnoses: The differential diagnosis associated with the presentation includes <KEANU Cortes - Last Filed: 10/07/22 19:18> As above <KEANU Cortes - Last Filed: 10/07/22 19:18> Admission/Observation Consideration of admission/observation: Escalation of care including admission/observation considered <KEANU Cortes - Last Filed: 10/07/22 19:18> Lab Data MDM Lab Attestation statement: I reviewed the patient's lab results. <KEANU Cortes - Last Filed: 10/07/22 19:18> Radiology Impression Discussion of test interpretation with radiology: I have reviewed the radiologist's reading. <KEANU Cortes - Last Filed: 10/07/22 19:18> External Record Review External record reviewed: Inpatient record, Office record, Outpatient record, Prior outpatient labs, Prior outpatient radiology, Primary care record and Outside ED record <KEANU Cortes - Last Filed: 10/07/22 19:18> Discharge Plan Discharge Clinical Impression: Popliteal cyst, Suprapatellar effusion of knee <KEANU Contreras - Last Filed: 10/07/22 12:06> Patient Disposition: Home, Self-Care <KEANU Contreras - Last Filed: 10/07/22 12:06> Instructions: Bakers Cyst (ED), Swollen Knee Joint (ED) <KEANU Contreras - Last Filed: 10/07/22 12:06> Additional Instructions: Your ultrasound shows a popliteal fossa cyst. You also have a small suprapatellar joint effusion. Wear Waylon wraps at home for comfort and stability. Ice and elevate. Take naproxen and Tylenol. Take naproxen with food. Follow-up with her doctor and Orthopedics as needed Olson ecograf?a muestra un quiste en la fosa popl?tea. Tambi?n tiene un sue?o derrame articular suprapatelar. Use envolturas Waylon en casa para mayor comodidad y estabilidad. Hielo y eleva. Yumi naproxeno y Tylenol. [place] naproxeno con alimentos. Seguimiento con olson m?dico y ortopedia seg?n sea necesario <KEANU Contreras - Last Filed: 10/07/22 12:06> Prescriptions: No Action fluoxetine 40 mg capsule 40 mg PO QAM glipizide 10 mg tablet 10 mg PO BID acetaminophen 650 mg tablet extended release 650 mg PO Q8H PRN (Reason: Pain) metformin 1,000 mg tablet 1,000 mg PO BID albuterol sulfate [Ventolin HFA] 90 mcg/actuation HFA aerosol inhaler 2 puff inhalation Q4-6H PRN (Reason: Shortness Of Breath) fluticasone propionate 50 mcg/actuation spray,suspension 1 spray intranasal DAILY Rx Instructions: IN EACH NOSTRIL lisinopril 5 mg tablet 1 tab PO DAILY insulin aspart U-100 [Novolog FlexPen U-100 Insulin] 100 unit/mL (3 mL) insulin pen 0 sliding scale dose subcut TIDAC Protocol: Insulin Correction Scale Less than or equal to 110 ---- Give (units): 0 111 to 150 Give (units): 6 151 to 200 Give (units): 8 201 to 250 Give (units): 10 251 to 300 Give (units): 12 301 to 350 Give (units): 14 Greater than 350 Give (units): 16 Call MD if Blood Glucose > : 350 aspirin 81 mg Tablet,Delayed Release (Dr/Ec) 81 mg PO DAILY 30 Days Qty: 30 0RF atorvastatin 80 mg Tablet 80 mg PO BEDTIME 30 Days Qty: 30 0RF clopidogrel 75 mg Tablet 75 mg PO DAILY 30 Days Qty: 30 0RF cyclobenzaprine 5 mg tablet 5 mg PO TID PRN (Reason: back pain) 7 Days Qty: 21 0RF doxycycline monohydrate 100 mg tablet 100 mg PO BID 10 Days Qty: 20 0RF cephalexin 500 mg tablet 500 mg PO Q6H 10 Days Qty: 40 0RF acetaminophen-codeine 300-30 mg tablet 1 tab PO Q8H PRN (Reason: pain) Qty: 14 0RF kqyxqjfdgk-mbftfyqkxlh-kloxngn 8-1-1 % solution 1 ml topical TID Qty: 15 0RF nltmqtdlco-shizntytntqgv-mdww [Fioricet] 50-300-40 mg capsule 1 cap PO Q6H PRN (Reason: headache) Qty: 20 0RF lorazepam [Ativan] 0.5 mg tablet 0.5 mg PO BEDTIME PRN (Reason: sleep) Qty: 10 0RF aspirin [Adult Low Dose Aspirin] 81 mg tablet,delayed release (DR/EC) 81 mg PO DAILY Qty: 30 3RF Lantus Solostar U-100 Insulin 100 unit/mL (3 mL) insulin pen 35 unit subcut QPM <KEANU Contreras - Last Filed: 10/07/22 12:06> Referrals: Yolanda Priest MD [Primary Care Provider] - 5 days <KEANU Contreras - Last Filed: 10/07/22 12:06> Interventions: ED Discharge Assessment Last Done: 10/07/22 14:37 <KEANU Contreras - Last Filed: 10/07/22 12:06> Discharge Date/Time: 10/07/22 14:38 <KEANU Contreras - Last Filed: 10/07/22 12:06> Print Language: Mosotho <KEANU Contreras - Last Filed: 10/07/22 12:06>
[2022-10-07 13:54] VITALS: BP 187/93; PULSE 88; RESP 16; O2SAT 99
--- NOTE | 2022-10-07 14:07 | MHC.EDTECH ---
Waylon bandages applied to knees bilaterally to pt comfort
[2022-10-07] MEDS: Ketorolac Tromethamine 30 MG/ML VIAL IM (14:20)
== END 2022-10-07 14:38 | disposition home or self-care (01) ==
PROVIDERS: Emergency Provider Student in an Organized Health Care Education/Training Program; PCP Internal Medicine
DX: M71.21 Synovial cyst of popliteal space [Baker], right knee (principal); M71.22 Synovial cyst of popliteal space [Baker], left knee; Z79.899 Other long term (current) drug therapy; M25.462 Effusion, left knee; M25.461 Effusion, right knee; R60.0 Localized edema
CPT/HCPCS: 73564; 93971; 96372; 99283; 99284; J1885

== ENCOUNTER → 2022-10-25 13:55 | Outpatient (BNVA) | payer OTHER, SELFPAY | PROVIDERS: PCP Internal Medicine; Visit Provider Surgery Vascular Surgery | DX: I65.23 Occlusion and stenosis of bilateral carotid arteries (principal); Z86.73 Personal history of transient ischemic attack (TIA), and cerebral infarction without residual deficits | CPT/HCPCS: 99212 ==

== ENCOUNTER 2022-11-14 13:30 | Outpatient (REF) | payer OTHER, SELFPAY ==
--- NOTE | ~2022-11-14 | MM_ITS ---
EXAMINATION: MM SCREENING DIGITAL BREAST TOMOSYNTHESIS, BILATERAL CLINICAL INFORMATION: Screening. Asymptomatic. The lifetime risk of breast cancer based on the Tyrer-Cuzick Model is 3.2%. COMPARISON: Mammography: November 08, 2021 and studies dating back to January 10, 2017 TECHNIQUE: Digital breast tomosynthesis is performed in both the craniocaudal and mediolateral oblique views along with computer-aided detection (CAD). Synthesized 2D images are generated from the tomosynthesis. FINDINGS: There are scattered areas of fibroglandular density (ACR BI-RADS breast composition Category b). There are no significant masses, abnormal calcifications, or other abnormalities. MM/MM tomosynthesis screening BI IMPRESSION: No significant changes ASSESSMENT: BI-RADS 1: Negative RECOMMENDATION: Routine annual mammography screening. This patient's information was entered into a reminder system with a target due date for their next mammogram.
== END 2022-11-14 13:31 | disposition home or self-care (01) ==
LOC: HO.MAMMO 13:30
PROVIDERS: PCP Internal Medicine; Visit Provider Internal Medicine
DX: Z12.31 Encounter for screening mammogram for malignant neoplasm of breast (principal)
CPT/HCPCS: 77063; 77067

== ENCOUNTER 2023-02-18 16:22 | Outpatient (REF) | payer OTHER, SELFPAY | END 2023-02-18 16:23 | disposition home or self-care (01) | LOC: HO.HHCL 16:22 | PROVIDERS: Visit Provider Internal Medicine | DX: Z13.89 Encounter for screening for other disorder (principal) ==

== ENCOUNTER 2023-02-20 09:08 | Outpatient (REF) | payer OTHER, SELFPAY ==
[2023-02-20 12:00] LABS: Alanine Aminotransferase 11 U/L (0-31); Alkaline Phosphatase 104 U/L (39-117); Aspartate Amino Transferase 15 U/L (5-31); Bilirubin Direct < 0.2 mg/dL (0.0-0.5); Bilirubin Total 0.2 mg/dL (0.0-1.0); Total Protein 7.8 g/dL (6.5-8.0)
[2023-02-20 12:10] LABS: HIV AB/AG Nonreactive (Nonreactive); HIV Num 1 0.06 S/CO (0.00-0.99)
[2023-02-20 12:12] LABS: Syphilis Screen Nonreactive (Nonreactive)
[2023-02-22 22:33] LABS: TS Negative Control Passed; TS Panel A 1; TS Panel B 0; TS Positive Control Passed; TSpotTB Negative (Negative)
== END 2023-02-20 09:09 | disposition home or self-care (01) ==
LOC: HO.HHCL 09:08
PROVIDERS: Visit Provider Internal Medicine
DX: Z00.00 Encounter for general adult medical examination without abnormal findings (principal); Z11.4 Encounter for screening for human immunodeficiency virus [HIV]; Z11.1 Encounter for screening for respiratory tuberculosis; E11.65 Type 2 diabetes mellitus with hyperglycemia
CPT/HCPCS: 36415; 80076; 86481; 86780; 87389

== ENCOUNTER 2023-02-28 14:07 | Outpatient (REF) | payer OTHER, SELFPAY ==
--- NOTE | ~2023-02-28 | MM_ITS ---
EXAMINATION: BONE DENSITOMETRY CLINICAL INDICATION: At risk for bone density loss. COMPARISON: This is the patient's baseline examination. TECHNIQUE: Using a [employer] DXA System (software version: 13.1) manufactured by [employer], dual-energy x-ray absorptiometry was performed of the lumbar spine and left hip. The images are of good technical quality. Summary results are attached. FINDINGS: LEFT FEMUR, NECK: BMD 0.820 g/cm2, Z-score -0.1, T-score -1.6, osteopenia. LEFT FEMUR, TOTAL: BMD 0.823 g/cm2, Z-score -0.3, T-score -1.5, osteopenia. AP SPINE L1-L4: BMD 0.904 g/cm2, Z-score -0.8, T-score -2.3, osteopenia. IDENTIFIED RISK FACTORS: Early menopause, type 1 diabetes. HISTORY OF FRACTURE: None listed. MEDICATIONS: Calcium, vitamin D. MM/XR DEXA axial skeleton IMPRESSION: 1. DIAGNOSIS: Osteopenia based on the lowest T-score value of -2.3 in the lumbar spine applying World Health Organization criteria. 2. 10-YEAR FRACTURE RISK PREDICTION, FRAX: Major osteoporotic fracture (clinical spine, forearm, hip or shoulder) 4.9%. Hip fracture 0.5%. 3. Treatment Recommendations: NOF guidelines recommend consideration for treatment in postmenopausal women and men age 50 and older presenting with the following: -A hip or vertebral (clinical or morphometric) fracture. -T-score less than or equal to -2.5 at the femoral neck or spine after appropriate evaluation to exclude secondary causes. -Low bone mass at the hip or spine and a 10-year fracture probability by FRAX of greater than or equal to 3% for hip fracture or greater than or equal to 20% for major osteoporotic fracture based on the [place] adapted WHO algorithm. 4. Other Recommendations: All treatment decisions require clinical judgment and consideration of individual patient factors, including patient preferences, comorbidities, previous drug use, risk factors not captured in the FRAX model (e.g. frailty, falls, vitamin D deficiency, increased bone turnover, interval significant decline in bone density) and possible under or overestimation of fracture risk by FRAX. Additional medical evaluation for secondary cause of low bone mineral density may be appropriate. FUTURE SCAN RECOMMENDATION: People with diagnosed cases of osteoporosis or at high risk for fracture should have regular bone mineral density tests. For patients eligible for Medicare, routine testing is allowed once every 2 years. The testing frequency can be increased to one year for patients who have rapidly progressing disease, those who are receiving or discontinuing medical therapy to restore bone mass, or have additional risk factors.
== END 2023-02-28 14:08 | disposition home or self-care (01) ==
LOC: HO.MAMMO 14:07
PROVIDERS: PCP Internal Medicine; Visit Provider Internal Medicine
DX: Z13.820 Encounter for screening for osteoporosis (principal); Z78.0 Asymptomatic menopausal state; Z91.89 Other specified personal risk factors, not elsewhere classified
CPT/HCPCS: 77080

== ENCOUNTER → 2023-02-28 14:30 | Outpatient (BNV) | payer OTHER, SELFPAY | PROVIDERS: PCP Internal Medicine; Visit Provider Radiology Diagnostic Radiology | DX: M85.80 Other specified disorders of bone density and structure, unspecified site (principal) | CPT/HCPCS: 77080 ==

== ENCOUNTER → 2023-05-13 13:01 | Outpatient (BNVA) | payer OTHER, SELFPAY | PROVIDERS: PCP Internal Medicine; Visit Provider Orthopaedic Surgery ==

== ENCOUNTER 2023-05-23 14:18 | Outpatient (REF) | payer OTHER, SELFPAY ==
[2023-05-23 16:25] LABS: Anion Gap 15 (12-20); Blood Urea Nitrogen 18 mg/dL (9-16); Carbon Dioxide 25 mmol/L (22-29); Chloride 98 mmol/L (96-108); Estimated Glomerular Filt Rate 47; Glucose Random 507 mg/dL (60-115); Potassium 4.7 mmol/L (3.3-5.1); Sodium 133 mmol/L (135-145)
[2023-05-24 03:40] LABS: Syphilis Screen Nonreactive (Nonreactive)
[2023-05-24 03:46] LABS: HBc Num1 0.12 S/CO (0.00-0.79); HBsAGNum1 0.34 S/CO (0.00-0.99); HIV AB/AG Nonreactive (Nonreactive); HIV Num 1 0.04 S/CO (0.00-0.99); Hepatitis A Antibody IgM 0.23 Index (0-0.79); Hepatitis B Core Antibody Nonreactive (Nonreactive); Hepatitis B Surface Antigen Negative (Negative); ~HepC Num1 0.09 S/CO (0.00-0.79); ~Hepatitis A Antibody IgM Nonreactive (Nonreactive); ~Hepatitis B Surface Antibody NONREACTIVE (Nonreactive); ~Hepatitis C Antibody Nonreactive (Nonreactive)
[2023-05-25 22:28] LABS: TS Negative Control Passed; TS Panel A 0; TS Panel B 0; TS Positive Control Passed; TSpotTB Negative (Negative)
== END 2023-05-23 14:19 | disposition home or self-care (01) ==
LOC: HO.HHCL 14:18
PROVIDERS: Visit Provider Internal Medicine
DX: Z00.00 Encounter for general adult medical examination without abnormal findings (principal); E11.65 Type 2 diabetes mellitus with hyperglycemia
CPT/HCPCS: 36415; 80048; 82010; 86481; 86704; 86706; 86709; 86780; 86803; 87340; 87389

== ENCOUNTER → 2023-06-07 11:55 | Outpatient (BNVA) | payer OTHER, SELFPAY | PROVIDERS: PCP Internal Medicine; Visit Provider Orthopaedic Surgery | DX: M25.561 Pain in right knee (principal); E11.9 Type 2 diabetes mellitus without complications | CPT/HCPCS: 20610; 99212; J0665; J1100 ==

== ENCOUNTER 2023-06-07 11:56 | Outpatient (AMB) | payer OTHER, SELFPAY ==
[2023-06-07 12:01] VITALS: BMI 23.9
--- NOTE | 2023-06-07 12:01 | MHC.OFFVIS ---
Intake Vital Signs 06/07/23 12:01 Height 5 ft 4 in Weight 139 lb BMI 23.9 Intake Visit Reasons: New Prob- Bilateral OA of both knees Intake Note: Alice is a 62 year old female who presnets today for a new problem visit with complaints of bilateral knee pain. Patient reports that she has had pain for about 4-5 months now. R>L. No history of previous treatments Allergies No Known Allergies [No Known Allergies*] Allergy (Verified 10/25/22 14:03) HPI New Prob- Bilateral OA of both knees HPI Details Alice is a 62 year old woman who presents with bilateral knee pain, R>L. SHe is active and does not require assistive device. She denies injury. She describes medial sided knee pain. Denies mechanical symptoms. She complains of pain for ~5 months now. She denies any prior treatment. [facility] Medical History (Updated 06/10/23 @ 09:35 by Nick Larkin MD) Depression Peripheral neuropathy Asthma Back pain Arthritis Hypercholesterolemia Diabetes mellitus Surgical History History of colonoscopy H/O tubal ligation Family History Father Lung cancer Prostate cancer Emphysema lung Social History Household Members: Family and Children Housing: Apartment Do you presently have visiting nurse or other home services: No Alcohol intake: never Patient Tobacco Use Status: Never used Tobacco e-Cigarette/Vaping Use: Never Used Second Hand Smoke Exposure: Yes service: No Current occupational status: retired Current occupation: rt handed Review of Systems Const All systems reviewed & are unremarkable except as noted in HPI and below Physical Exam Vital Signs: BMI result Body Mass Index 23.9 Const General: no acute distress, alert and awake Orientation/consciousness: patient oriented x3 HEENT Head: Yes normocephalic and Yes atraumatic Mouth: moist mucous membranes Eyes General: appearance normal, both eyes and all related structures EOM: EOMs intact bilaterally Chest Other: no audible wheezing. Resp Other: No audible wheezing Effort & Inspection: normal respiratory effort and able to speak in complete sentences Cardio Other: Radial pulse palpable with no rythmic abnormalities Jugular venous distension: no JVD Back/Spine/Pelvis Cervical Spine: normal cervical lordosis Skin General skin exam: turgor normal Rashes: no rashes Neuro General: patient oriented x3 Extrem Other: Bilateral Knees: Mild TTP medial compartment Psych Appearance: grossly normal Mental Status: mental status grossly normal Speech and movement: Normal speech and movement present Affect: normal affect Attitude: cooperative Office Procedures Joint Injection/Drain Joint Injection/Drain Details: Injected 1 mL of Decadron and 3 mL 1% lidocaine and 3 mL of 0.25% Marcaine. Site was prepped using aseptic technique. Patient tolerated the procedure well. Primary Site: right knee Approach Used: anterolateral Coding - Large joint Procedure code (CPT) selection complete Results Reviewed Results Reviewed: 06/07/23 12:18 BUPivacaine MPF 0.25 % [Sensorcaine-MPF 0.25% 10 ML] 10 ml .ROUTE .STK-MED ONE Lidocaine HCl 2 % MPF [Xylocaine 2 % MPF] 5 ml .ROUTE .STK-MED ONE dexAMETHasone sod phosphate [Decadron] 4 mg .ROUTE .STK-MED ONE I personally reviewed relevant radiographs No significant left knee abnormality appreciated. No bony abnormality of the right knee identified. Small suprapatellar effusion. Assessment & Plan Assessment & Plan (1) Diabetes mellitus: Comment: NIDDM Code(s): E11.9 - Type 2 diabetes mellitus without complications Plan: She is diabetic and I explained the hyperglycemic effects of steroids. (2) Right knee pain: Code(s): M25.561 - Pain in right knee Plan This is a 62 year old woman with bilateral knee pain with mild arthritic changes. Her exam is fairly benign. We discussed options and elected to inject her right knee today. She tolerated this well and I recommend NSAIDs and PT which she will think about. She is diabetic and I explained the hyperglycemic effects of steroids. Coding Level of Care Code Est Pt Level 4 (90937) Diagnoses Diabetes mellitus E11.9 Right knee pain M25.561 CPT Codes Coding - Large joint: 21716 - Large joint ([id number])
== END 2023-06-07 12:50 | disposition home or self-care (01) ==
PROVIDERS: PCP Internal Medicine; Visit Provider Orthopaedic Surgery
DX: M25.561 Pain in right knee (principal); E11.9 Type 2 diabetes mellitus without complications
CPT/HCPCS: 20610; 99214

== ENCOUNTER 2023-08-28 15:21 | Outpatient (REF) | payer OTHER, SELFPAY ==
--- NOTE | ~2023-08-28 | US_ITS ---
EXAMINATION: US THYROID CLINICAL INFORMATION: Enlarged thyroid lobes. COMPARISON: CT angiogram neck 02/02/2022 TECHNIQUE: Linear transducer sommers-scale and color Doppler examination with attention to the region of the thyroid. FINDINGS: SIZE: Measurements of the thyroid lobes and nodules are given in sagittal, anteroposterior and transverse dimensions respectively. Right Thyroid Lobe: 5.1 x 1.9 x 2.1 cm, volume 10.6 mL. Parenchyma: The gland echotexture is heterogeneous. Thyroid vascularity is normal. Left Thyroid Lobe: 4.4 x 1.5 x 1.5 cm, volume 5.2 mL. Parenchyma: The gland echotexture is heterogeneous. Thyroid vascularity is normal. Isthmus: 0.3 cm in maximum AP dimension. No focal thyroid nodule is seen. NODES: No lymphadenopathy is seen in the tissue surrounding the thyroid gland. US/US thyroid IMPRESSION: Heterogeneous thyroid which can be seen in the setting of thyroiditis with mild thyromegaly. ACR TI-RADS RECOMMENDATION REFERENCE: Ultrasound-guided fine-needle aspiration, followup ultrasound, no further follow up. * TR1 (0 point) and TR2 (2 points): No FNA or follow up. * TR3 (3 points): FNA if more than or equal to 2.5 cm in maximum dimension, followup ultrasound in 1, 3 and 5 years if 1.5 to 2.4 cm in maximum dimension. * TR4 (4-6 points): FNA if more than or equal to 1.5 cm in maximum dimension, followup ultrasound in 1, 2, 3 and 5 years if 1 to 1.4 cm in maximum dimension. * TR5 (more than or equal to 7 points): FNA if more than or equal to 1 cm in maximum dimension, followup ultrasound every year for 5 years if 0.5 to 0.9 cm in maximum dimension. * TR3, TR4 or TR5 nodules that are below the size threshold for followup receive no follow up.
== END 2023-08-28 15:22 | disposition home or self-care (01) ==
LOC: HO.US 15:21
PROVIDERS: PCP Internal Medicine; Visit Provider Internal Medicine
DX: E04.9 Nontoxic goiter, unspecified (principal)
CPT/HCPCS: 76536

== ENCOUNTER 2023-09-06 17:46 | Outpatient (REF) | payer OTHER, SELFPAY ==
--- NOTE | ~2023-09-06 | MR_ITS ---
EXAMINATION: MR KNEE WITHOUT CONTRAST, RIGHT CLINICAL INFORMATION: Primary osteoarthritis of both knees. Right knee pain x3 years. COMPARISON: None available. TECHNIQUE: MRI of the knee without contrast was performed using routine sequences on a high-field scanner. FINDINGS: MENISCI: Medial Meniscus: There is mild degenerative intrasubstance signal at the medial meniscal body. Subtle inner margin fraying is suspected in this region as well. No discrete tears. Lateral Meniscus: A complex tear is most pronounced at the meniscal body with a dominant horizontal component as well as a superimposed radial component and partial extrusion of the meniscal body. There is marked inner margin fraying diffusely. At the anterior horn, the tear appears more vertical in orientation, extending to the undersurface. LIGAMENTS: Cruciate: Intact Collateral: Intact EXTENSOR MECHANISM: Intact ARTICULAR CARTILAGE/BONE: Patellofemoral Compartment: Mild nonuniform chondral thinning is present at the medial trochlear facet and inferior aspect of the medial patellar facet. Tiny marginal osteophytes. Medial Compartment: Minimal chondral surface irregularity at the medial femoral condyle. Articular cartilage is well-preserved. Lateral Compartment: [id number] nonuniform chondral thinning is present at the lateral femoral condyle posterior weightbearing surface and the posterolateral aspect of the lateral tibial plateau with small full-thickness chondral fissures at the lateral tibial plateau and minimal subchondral edema. Small marginal osteophytes. JOINT FLUID AND BURSAE: Small joint effusion and Casiano's cyst. No intra-articular loose bodies. MR/MR knee RT wo con IMPRESSION: 1. Complex tear of the lateral meniscus with partial extrusion of the meniscal body. 2. Zqhd-ez-[id number] lateral compartment osteoarthritis. More minimal osteoarthritis in the patellofemoral compartment. 3. Small joint effusion and Casiano's cyst.
== END 2023-09-06 17:47 | disposition home or self-care (01) ==
LOC: HO.MRI 17:46
PROVIDERS: Visit Provider Internal Medicine
DX: I69.391 Dysphagia following cerebral infarction (principal)
CPT/HCPCS: 73721

== ENCOUNTER 2023-10-21 18:12 | Outpatient (REF) | payer OTHER, SELFPAY | END 2023-10-21 18:13 | disposition home or self-care (01) | LOC: HO.HHCLNP 18:12 | PROVIDERS: Visit Provider Internal Medicine | DX: R10.2 Pelvic and perineal pain (principal) | CPT/HCPCS: 87086 ==

== ENCOUNTER 2023-11-04 13:44 | Outpatient (REF) | payer OTHER, SELFPAY ==
--- NOTE | ~2023-11-04 | US_ITS ---
EXAMINATION: US EXTRACRANIAL CAROTID DUPLEX, BILATERAL CLINICAL INFORMATION: Occlusion and stenosis of bilateral carotid arteries COMPARISON: Carotid duplex 09/10/2022 TECHNIQUE: Real-time ultrasound and Doppler techniques (integrating B-mode 2-D vascular images, Doppler spectral analysis and color-flow Doppler imaging) were utilized to interrogate the extracranial carotid arteries, the vertebral arteries and proximal subclavian arteries bilaterally. The degree of stenosis is determined by criteria similar to NASCET. FINDINGS: Right Side: 1. There is mild atherosclerotic plaque seen in the bifurcation/proximal ICA region. 2. The common carotid artery PSV proximally is 123 cm/s and distally 83.8 cm/s. 3. The proximal internal carotid artery velocities are 128 cm/s systolic and 36.9 cm/s diastolic. 4. The proximal external carotid artery PSV is 122 cm/s. 5. The vertebral artery shows antegrade flow. 6. The subclavian artery waveforms are normal. Left Side: 1. There is mild atherosclerotic plaque seen in the bifurcation/proximal ICA region. 2. The common carotid artery PSV proximally is 113 cm/s and distally 84.1 cm/s. 3. The proximal internal carotid artery velocities are 60.1 cm/s systolic and 17.3 cm/s diastolic. 4. The proximal external carotid artery PSV is 76.8 cm/s. 5. The vertebral artery shows antegrade flow. 6. The subclavian artery waveforms are normal. US/US carotid duplex BI IMPRESSION: 1. RIGHT: Moderate, hemodynamically significant stenosis of the proximal right internal carotid artery corresponding to a 50-79% stenosis by velocity criteria. 2. LEFT: Minimal, non-hemodynamically significant stenosis of the proximal left internal carotid artery corresponding to a 0-49% stenosis by velocity criteria. 3. There is no change in the category severity of disease when compared to the previous study dated 09/10/2022.
== END 2023-11-04 13:45 | disposition home or self-care (01) ==
LOC: HO.US 13:44
PROVIDERS: PCP Internal Medicine; Visit Provider Surgery Vascular Surgery
DX: I65.23 Occlusion and stenosis of bilateral carotid arteries (principal)
CPT/HCPCS: 93880

== ENCOUNTER 2023-11-19 13:48 | Outpatient (REF) | payer OTHER, SELFPAY ==
--- NOTE | ~2023-11-19 | MM_ITS ---
EXAMINATION: MM SCREENING DIGITAL BREAST TOMOSYNTHESIS, BILATERAL CLINICAL INFORMATION: Screening. Asymptomatic. COMPARISON: Mammography: 11/14/2022, 11/08/2021, 01/30/2018, and 01/10/2017. TECHNIQUE: Digital breast tomosynthesis is performed in both the craniocaudal and mediolateral oblique views along with computer-aided detection (CAD). Synthesized 2D images are generated from the tomosynthesis. FINDINGS: There are scattered areas of fibroglandular density (ACR BI-RADS breast composition Category b). There are vascular calcifications bilaterally. There are no suspicious masses, suspicious grouped calcifications, or areas of architectural distortion in either breast. The parenchymal pattern is stable from prior exams. No skin or axillary abnormalities. MM/MM tomosynthesis screening BI IMPRESSION: No mammographic evidence of malignancy. ASSESSMENT: BI-RADS BI-RADS 2 - Benign Findings RECOMMENDATION: Routine annual mammography screening. 1 year F/U This examination should not preclude the clinical evaluation of a suspicious palpable abnormality. This patient's information was entered into a reminder system with a target due date for their next mammogram.
== END 2023-11-19 13:49 | disposition home or self-care (01) ==
LOC: HO.MAMMO 13:48
PROVIDERS: PCP Internal Medicine; Visit Provider Internal Medicine
DX: Z12.31 Encounter for screening mammogram for malignant neoplasm of breast (principal)
CPT/HCPCS: 77063; 77067

== ENCOUNTER → 2023-11-19 14:15 | Outpatient (BNV) | payer OTHER, SELFPAY | PROVIDERS: PCP Internal Medicine; Visit Provider Radiology Diagnostic Radiology | DX: Z12.31 Encounter for screening mammogram for malignant neoplasm of breast (principal) | CPT/HCPCS: 77063; 77067 ==

== ENCOUNTER 2023-11-29 09:34 | Outpatient (REF) | payer OTHER, SELFPAY ==
[2023-11-29 12:32] LABS: Creatinine Urine 58.74 mg/dL; Microalbum/Creatinine Ratio Ur 350.6 ug/mg cr (<30)
[2023-11-29 12:48] LABS: Folate 13.3 ng/mL (> or = 4.0); Vitamin B12 322 pg/mL (200-900)
[2023-11-29 12:53] LABS: Cholesterol 185 mg/dL (<200); HDL Cholesterol 61 mg/dL (>40); LDL Cholesterol Calculated 113 mg/dL (<100); Triglycerides 59 mg/dL (<150)
[2023-11-29 12:54] LABS: TSH reflex Free T4 1.43 uIU/mL (0.32-4.0); Vitamin D 25-OH Total 20.8 ng/mL (>30)
[2023-11-29 13:58] LABS: Reflex LDLD? No
== END 2023-11-29 09:35 | disposition home or self-care (01) ==
LOC: HO.HHCL 09:34
PROVIDERS: Visit Provider Internal Medicine
DX: E11.65 Type 2 diabetes mellitus with hyperglycemia (principal)
CPT/HCPCS: 36415; 80061; 82043; 82306; 82570; 82607; 82746; 84443

== ENCOUNTER 2023-12-05 12:51 | Outpatient (AMB) | payer OTHER, SELFPAY ==
[2023-12-05 13:10] VITALS: BMI 23.9
--- NOTE | 2023-12-05 13:10 | MHC.OFFVIS ---
Vital Signs 12/05/23 13:10 Height 5 ft 4 in Weight 139 lb BMI 23.9 Intake Visit Reasons: O/V rt knee injection Intake Note: Alice is a 63 year old female who presents today for a repeat injection of the right knee for OA. Last injection done on 06/07/23 Allergies No Known Allergies [No Known Allergies*] Allergy (Verified 10/25/22 14:03) HPI HPI O/V rt knee injection : Details: Alice is a 63 year old female who presents today for a repeat injection of the right knee for OA. Last injection done on 06/07/23. This injection was helpful. Now however, she describes worsening pain with ambulation. It is mostly over the lateral aspect of her right knee. She can walk for maybe 20 minutes without having to stop because of pain. She is able to get through day well sometimes not so well at other times. [facility] Medical History Depression Peripheral neuropathy Asthma Back pain Arthritis Hypercholesterolemia Diabetes mellitus Surgical History History of colonoscopy H/O tubal ligation Family History Father Lung cancer Prostate cancer Emphysema lung Social History Household Members: Family and Children Housing: Apartment Do you presently have visiting nurse or other home services: No Alcohol intake: never Patient Tobacco Use Status: Never used Tobacco e-Cigarette/Vaping Use: Never Used Second Hand Smoke Exposure: Yes service: No Current occupational status: retired Current occupation: rt handed Physical Exam Vital Signs: BMI result Body Mass Index 23.9 Extrem Other: Tenderness to palpation lateral compartment right knee. Valgus malalignment with mild effusion Office Procedures Joint Injection/Drain Joint Injection/Drain Details: Injected 1 mL of Decadron and 3 mL 1% lidocaine and 3 mL of 0.25% Marcaine. Site was prepped using aseptic technique. Patient tolerated the procedure well. Primary Site: right knee Approach Used: anterolateral Coding 66854 - Large joint Procedure code (CPT) selection complete Results Reviewed Results Reviewed: I personally reviewed the MR images. Complex tear of the lateral meniscus with partial extrusion of the meniscal body. 2. Xxty-fy-vpvbmepo lateral compartment osteoarthritis. More minimal osteoarthritis in the patellofemoral compartment. 3. Small joint effusion and Casiano's cyst. Assessment & Plan Assessment & Plan (1) Arthritis of right knee: Code(s): M17.11 - Unilateral primary osteoarthritis, right knee Category: Medical Plan: This is a 63-year-old woman with valgus pattern right knee osteoarthritis. Prior injections have been helpful and I recommend repeat injection. If this is not sufficiently helpful we may consider surgery given her poor alignment and worsening pain. I explained this to her and she expressed understanding. (2) Valgus deformity, not elsewhere classified, right knee: Code(s): M21.061 - Valgus deformity, not elsewhere classified, right knee Category: Medical Plan: Valgus malalignment which would benefit from surgical correction. (3) Diabetes mellitus: Comment: NIDDM Code(s): E11.9 - Type 2 diabetes mellitus without complications Category: Medical Plan: I warned her of the hyperglycemic effects of steroid injections Plan I injected her right knee, she may follow up no sooner than 3 months for repeat injection Coding Level of Care Code Est Pt Level 4 (27461) Diagnoses Arthritis of right knee M17.11 Valgus deformity, not elsewhere classified, right knee M21.061 Diabetes mellitus E11.9 CPT Codes Coding - Large joint: 90220 - Large joint ([id number])
== END 2023-12-05 13:39 | disposition home or self-care (01) ==
LOC: HO.HOS 12:51
PROVIDERS: PCP Internal Medicine; Visit Provider Orthopaedic Surgery
DX: M17.11 Unilateral primary osteoarthritis, right knee (principal); M21.061 Valgus deformity, not elsewhere classified, right knee; E11.9 Type 2 diabetes mellitus without complications
CPT/HCPCS: 20610; 99214

== ENCOUNTER → 2023-12-05 12:51 | Outpatient (BNVA) | payer OTHER, SELFPAY | PROVIDERS: PCP Internal Medicine; Visit Provider Orthopaedic Surgery | DX: M17.11 Unilateral primary osteoarthritis, right knee (principal); M21.061 Valgus deformity, not elsewhere classified, right knee; E11.9 Type 2 diabetes mellitus without complications | CPT/HCPCS: 20610; 99212; J0665; J1100 ==

== ENCOUNTER 2023-12-26 14:43 | Outpatient (AMB) | payer OTHER, SELFPAY ==
[2023-12-26 14:51] VITALS: BMI 23.9
--- NOTE | 2023-12-26 14:51 | A.OFFVIS_ITS ---
Vital Signs 12/26/23 14:51 12/26/23 14:55 12/26/23 14:55 Height 5 ft 4 in Weight 139 lb BMI 23.9 BP 110/62 112/66 Blood Pressure Location Rt brachial Lt brachial Position Sitting Sitting Intake Visit Reasons: Follow Up 11/03 Carotid US Intake Note: 1 yr follow up carotid US 11/04/23. Patient states she has had a few dizzy spells around 1 month ago. Believes it might have been her sugar levels. Accompanied by: Self / Same As Patient Allergies No Known Allergies [No Known Allergies*] Allergy (Verified 12/26/23 14:54) HPI HPI Follow Up 11/03 Carotid US: Details: Very pleasant 63-year-old female presents for routine carotid surveillance. This began all in back in 2021 where she was worked up for TIA/stroke. 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 She occasionally has speech difficulties but has not had any interval incident since that time. She appears to be doing relatively well. She is being maintained on aspirin Plavix and high-dose statin. She now presents for routine surveillance follow-up. [facility] Medical History Depression Peripheral neuropathy Asthma Back pain Arthritis Hypercholesterolemia Diabetes mellitus Surgical History History of colonoscopy H/O tubal ligation Family History Father Lung cancer Prostate cancer Emphysema lung Social History Household Members: Family and Children Housing: Apartment Do you presently have visiting nurse or other home services: No Alcohol intake: never Patient Tobacco Use Status: Never used Tobacco e-Cigarette/Vaping Use: Never Used Second Hand Smoke Exposure: Yes service: No Current occupational status: retired Current occupation: rt handed Review of Systems Const All systems reviewed & are unremarkable except as noted in HPI and below Reports no additional complaints ENT Reports Normal hearing present Card Denies chest pain, Denies chest pain at rest, Denies chest pain with activity and Denies pedal edema Resp Denies cough GI Denies abdominal pain Musc Denies abnormal gait, Denies muscle cramps and Denies radiating pain into limb Skin/Breast Denies skin ulcer and Denies wounds Neuro Reports Normal hearing present and Denies abnormal gait Psych Reports no additional complaints Physical Exam Vital Signs: Last Vital Signs BP 112/66 12/26/23 14:55 BMI result Body Mass Index 23.9 Const General: cooperative, healthy appearing and comfortable Orientation/consciousness: oriented to person, oriented to place and oriented to time HEENT Head: Yes normal to inspection Neck Neck: Yes normal visual inspection Carotids: no bruits Chest Chest palpation & inspection: normal inspection of the chest Resp Effort & Inspection: normal respiratory effort and able to speak in complete sen tences Auscultation: clear to auscultation bilaterally, no crackles, no rales, no rhonchi and no wheezes Cardio Rate: regular rate Rhythm: regular rhythm Heart sounds: S1 normal heart sound present and S2 normal heart sound present Bruits: no carotid bruits Peripheral pulses: Peripheral pulses 2+ throughout GI Inspection: Yes normal to inspection Skin Wounds: no wounds Hair: normal Neuro General: oriented to person, oriented to place and oriented to time Cranial nerves: Yes CN's II-XII intact bilaterally and Yes Normal hearing present Cognition (Neuro): normal cognition Motor exam (neuro): 5/5 motor strength present throughout Extrem Other: venous exam: No significant superficial varicosities or spider telangiectasia s, minimal edema General: No clubbing, No cyanosis and No edema Psych Appearance: grossly normal Mental Status: mental status grossly normal Speech and movement: Normal speech and movement present Results Reviewed Results Reviewed: Carotid testing on the right demonstrates 50-79% stenosis although peak systolic velocities only 128 and on the left is 0-49%. Written written report and images from testing of 11/04/2023 were reviewed. Assessment & Plan Assessment & Plan (1) Bilateral carotid artery stenosis: Code(s): I65.23 - Occlusion and stenosis of bilateral carotid arteries Category: Medical Plan: In short patient has asymptomatic carotid disease. We have reviewed signs and symptoms of a stroke. We also discussed risk factor modification inclusive a healthy diet low in cholesterol. The patient will follow up with us with surveillance ultrasound of the carotids 1 year. Should there be any changes or signs or symptoms of a stroke we will be happy to see them back sooner. Thank you for allowing us to participate in this patient's care. If there are any questions or concerns please do not hesitate to contact us. Orders: Orders US carotid duplex BI 1 Year I65.29 - Occlusion and stenosis of unspecified carotid artery Coding Level of Care Code Est Pt Level 4 (96208) Diagnoses Bilateral carotid artery stenosis I65.23
[2023-12-26 14:55] VITALS: BP 110/62; BP 112/66
== END 2023-12-26 15:17 | disposition home or self-care (01) ==
PROVIDERS: PCP Internal Medicine; Visit Provider Surgery Vascular Surgery
DX: I65.23 Occlusion and stenosis of bilateral carotid arteries (principal)
CPT/HCPCS: 99213

== ENCOUNTER → 2023-12-26 14:43 | Outpatient (BNVA) | payer OTHER, SELFPAY | PROVIDERS: PCP Internal Medicine; Visit Provider Surgery Vascular Surgery | DX: I65.23 Occlusion and stenosis of bilateral carotid arteries (principal) | CPT/HCPCS: 99212 ==

== ENCOUNTER 2024-01-01 10:50 | Outpatient (RCR) | payer OTHER, SELFPAY | END 2024-01-24 09:24 | disposition home or self-care (01) | LOC: HO.PT 10:50 | PROVIDERS: PCP Internal Medicine; Visit Provider Internal Medicine | DX: M25.512 Pain in left shoulder (principal); G89.29 Other chronic pain | CPT/HCPCS: 97110; 97161 ==

== ENCOUNTER 2024-02-19 09:35 | Outpatient (REF) | payer OTHER, SELFPAY ==
[2024-02-19 12:15] LABS: Alanine Aminotransferase 10 U/L (0-31); Alkaline Phosphatase 95 U/L (39-117); Anion Gap 13 (12-20); Aspartate Amino Transferase 12 U/L (5-31); Bilirubin Direct 0.1 mg/dL (0.0-0.5); Bilirubin Total 0.3 mg/dL (0.0-1.0); Blood Urea Nitrogen 18 mg/dL (9-16); Calcium 10.7 mg/dL (8.4-10.2); Carbon Dioxide 27 mmol/L (22-29); Chloride 105 mmol/L (96-108); Cholesterol 178 mg/dL (<200); Estimated Glomerular Filt Rate > 60; Glucose Random 73 mg/dL (60-115); HDL Cholesterol 49 mg/dL (>40); LDL Cholesterol Calculated 110 mg/dL (<100); Potassium 5.4 mmol/L (3.3-5.1); Sodium 140 mmol/L (135-145); Total Protein 7.8 g/dL (6.5-8.0); Triglycerides 96 mg/dL (<150)
[2024-02-19 12:53] LABS: Vitamin B12 370 pg/mL (200-900)
[2024-02-19 13:19] LABS: Creatinine Urine 180.47 mg/dL; Microalbum/Creatinine Ratio Ur 132.4 ug/mg cr (<30)
== END 2024-02-19 09:36 | disposition home or self-care (01) ==
LOC: HO.HHCL 09:35
PROVIDERS: Visit Provider Internal Medicine
DX: E11.65 Type 2 diabetes mellitus with hyperglycemia (principal)
CPT/HCPCS: 36415; 80053; 80061; 82043; 82248; 82570; 82607

== ENCOUNTER 2024-02-21 08:03 | Outpatient (REF) | payer OTHER, SELFPAY ==
[2024-02-21 08:53] LABS: Potassium 5.3 mmol/L (3.3-5.1)
== END 2024-02-21 08:04 | disposition home or self-care (01) ==
LOC: HO.LAB 08:03
PROVIDERS: PCP Internal Medicine; Visit Provider General Practice
DX: E87.5 Hyperkalemia (principal)
CPT/HCPCS: 36415; 84132

== ENCOUNTER 2024-02-28 10:51 | Outpatient (REF) | payer OTHER, SELFPAY ==
[2024-02-28 13:27] LABS: Potassium 4.3 mmol/L (3.3-5.1)
== END 2024-02-28 10:52 | disposition home or self-care (01) ==
LOC: HO.HHCL 10:51
PROVIDERS: Visit Provider Internal Medicine
DX: E87.5 Hyperkalemia (principal)
CPT/HCPCS: 36415; 84132

== ENCOUNTER 2024-03-13 11:24 | Outpatient (AMB) | payer OTHER, SELFPAY ==
--- NOTE | 2024-03-13 11:41 | A.OFFVIS_ITS ---
Vital Signs 03/13/24 11:44 Height 5 ft 4 in Weight 141 lb 15.643 oz BMI 24.4 BP 184/86 H Blood Pressure Location Rt brachial Position Sitting Pulse 88 Pulse Source Pulse Oximeter Pulse Oximetry (%) 98 Oxygen Delivery Method Room Air Intake Visit Reasons: Dysphagia Intake Note: Alice presents in office today for a scheduled initial assessment. CC; Pt reports that they have been having difficulty with swallowing and they feel like they are getting foreign bodies stuck in their esophagus. Pt reports that they have been having issues with swallowing since their CVA (2017). Pt is also having reflux and abdominal pain. Pt reports that the pain is epigastric in nature and appears to be worse while supine. Pt reports it is also worse at night. Pt also reports having a sour taste in their mouth from time to time. Pt denies any previous hx of EGD. Pt reports being status post cholecystectomy. Retail Sales Associate Required: Yes Retail Sales Associate Name: [id number] - Darby. Information Interpreted: non-clinical & clinical Accompanied by: Self / Same As Patient Allergies No Known Allergies [No Known Allergies*] Allergy (Verified 03/13/24 11:41) HPI HPI Dysphagia: Details: 63-year-old female with past medical history of asthma, diabetes, anxiety, migraine headaches, CVA, hypertension, hyperlipidemia, history of bilateral carotid stenosis, cholecystitis, history of cholecystectomy is here today for initial consultation. Patient reports that since she had her stroke she has been having on and off symptoms of trouble swallowing. Her symptoms got worse just recently. Now to the point where she is feeling like her saliva is coming back up. Patient reports that currently she is not on any PPI or H2 jamey. Patient reports that she takes Mylanta to help her symptoms. Patient reports severe acid reflux specially when she is laying down. Patient feels like acid is coming back up to her throat. Patient denies ever having endoscopy. Patient gets Cologuard and she reports that recently she just had Cologuard done and it was negative. Patient reports dyspepsia and occasional odynophagia. Patient also reports almost constant postnasal drip. Patient reports that she takes medication to help her, however she feels like she has constant mucus dripping down her throat. Patient reports occasional nausea without vomiting. Denies melena, hematochezia, unintentional weight loss or ribbon like stools. Patient reports to be moving her bowels without any issues. [facility] Medical History Encounter for colorectal cancer screening using Cologuard test Depression Peripheral neuropathy Asthma Back pain Arthritis Hypercholesterolemia Diabetes mellitus Surgical History (Updated 03/13/24 @ 11:56 by ORACIO Watts) Hx of cholecystectomy (~2021) H/O tubal ligation Family History Father Lung cancer Prostate cancer Emphysema lung Social History Household Members: Family and Children Housing: Apartment Do you presently have visiting nurse or other home services: No Alcohol intake: never Patient Tobacco Use Status: Never used Tobacco e-Cigarette/Vaping Use: Never Used Second Hand Smoke Exposure: Yes service: No Current occupational status: retired Current occupation: rt handed Review of Systems Const Denies weight gain and Denies weight loss ENT Reports no additional complaints, Reports dysphagia and Denies odynophagia Card Reports no additional complaints Resp Reports no additional complaints GI Reports abdominal pain (Epigastric), Denies belching, Denies melena, Reports bloating, Denies change in bowel habits, Reports dysphagia, Denies excessive flatus, Reports dyspepsia, Reports heartburn, Denies diarrhea, Denies loose sto ols, Reports nausea, Denies odynophagia and Denies vomiting Reports no additional complaints Musc Reports no additional complaints Neuro Reports no additional complaints Psych Reports no additional complaints Endo Reports no additional complaints Physical Exam Vital Signs: Last Vital Signs Pulse 88 03/13/24 11:44 BP 184/86 H 03/13/24 11:44 Pulse Ox 98 03/13/24 11:44 Oxygen Delivery Method Room Air 03/13/24 11:44 BMI result Body Mass Index 24.4 Const General: healthy appearing, no acute distress and well developed Nutritional Appearance: well nourished Orientation/consciousness: patient oriented x3 Resp Effort & Inspection: normal respiratory effort, able to speak in complete sentences, no tracheal deviation and symmetric chest movement Auscultation: clear to auscultation bilaterally Cardio Rate: regular rate GI Inspection: Yes normal to inspection and No distended Palpation (GI): Soft to palpation, not firm, nontender and No hepatosplenomegaly present Auscultation: normal bowel sounds General: Yes no CVA tenderness Back/Spine/Pelvis Back: no CVA tenderness Skin General skin exam: elasticity normal, turgor normal and dry skin Neuro General: patient oriented x3 Psych Appearance: grossly normal Mental Status: mental status grossly normal Assessment & Plan Assessment & Plan (1) GERD (gastroesophageal reflux disease): Code(s): K21.9 - Gastro-esophageal reflux disease without esophagitis Qualifiers: Esophagitis presence: esophagitis presence not specified Qualified Code(s): K21.9 - Gastro-esophageal reflux disease without esophagitis (2) Dysphagia: Code(s): R13.10 - Dysphagia, unspecified Qualifiers: Dysphagia type: oropharyngeal phase Qualified Code(s): R13.12 - Dysp hagia, oropharyngeal phase (3) Postprandial epigastric pain: Code(s): R10.13 - Epigastric pain (4) Postprandial abdominal bloating: Code(s): R14.0 - Abdominal distension (gaseous) Plan Will do H pylori breath test in the office today, will treat empirically if positive. Patient will be started on pantoprazole in the morning and famotidine at bedtime. Discussed with patient avoiding dietary triggers and late night snacking. Eating smaller meals and more often. Staying upright for minimum 3 hours after meals discussed with patient. Will send patient for upper GI with barium swallow to evaluate for reflux, Schatzki ring, achalasia, reflux. Patient will be sent for upper endoscopy that will be discussed next visit. Follow-up in the office in 3 months. Patient is to call if ordered treatment will not be effective. Patient is agreeable to this plan and verbalizes understanding of instructions. She was given the opportunity to ask questions and all questions answered. Thank you for allowing me to participate in her care Orders: Orders Vitamin D 25-OH (D2 and D3) Today E55.9 - Vitamin D deficiency, unspecified Lipase Today R10.9 - Unspecified abdominal pain FL upper GI w Ba Swallow Today R13.10 - Dysphagia, unspecified H Pylori Breath Test Today K21.9 - Gastro-esophageal reflux disease without esophagitis Medications: New famotidine (Pepcid) 20 mg PO BEDTIME 30 tabs 3RF K21.9 - Gastro-esophageal reflux disease without esophagitis pantoprazole take one tablet half an hour before breakfast 40 mg PO DAILY 30 tabs 2RF K21.9 - Gastro-esophageal reflux disease without esophagitis Coding Level of Care Code New Pt Level 4 (93253) Diagnoses Gastroesophageal reflux disease, unspecified whether esophagitis present K21.9 Esophagitis presence: esophagitis presence not specified Oropharyngeal dysphagia R13.12 Dysphagia type: oropharyngeal phase Postprandial epigastric pain R10.13 Postprandial abdominal bloating R14.0 Time Spent (min) 45 Comment 30 minutes spent with patient and additional 15 minutes spent reviewing her records
[2024-03-13 11:44] VITALS: BP 184/86; PULSE 88; O2SAT 98; BMI 24.4
== END 2024-03-13 12:51 | disposition home or self-care (01) ==
PROVIDERS: PCP Internal Medicine; Visit Provider Nurse Practitioner Family
DX: K21.9 Gastro-esophageal reflux disease without esophagitis (principal); R13.12 Dysphagia, oropharyngeal phase; R10.13 Epigastric pain; R14.0 Abdominal distension (gaseous)
CPT/HCPCS: 99204

== ENCOUNTER → 2024-03-13 11:24 | Outpatient (BNVA) | payer OTHER, SELFPAY | PROVIDERS: PCP Internal Medicine; Visit Provider Nurse Practitioner Family | DX: K21.9 Gastro-esophageal reflux disease without esophagitis (principal); R13.12 Dysphagia, oropharyngeal phase; R10.13 Epigastric pain; R14.0 Abdominal distension (gaseous); E55.9 Vitamin D deficiency, unspecified; Z90.49 Acquired absence of other specified parts of digestive tract; Z86.73 Personal history of transient ischemic attack (TIA), and cerebral infarction without residual deficits | CPT/HCPCS: 99202 ==

== ENCOUNTER 2024-03-13 16:30 | Outpatient (REF) | payer OTHER, SELFPAY | END 2024-03-13 16:31 | disposition home or self-care (01) | LOC: HO.LNP 16:30 | PROVIDERS: Visit Provider Nurse Practitioner Family | DX: Z13.89 Encounter for screening for other disorder (principal) ==

== ENCOUNTER 2024-03-17 12:25 | Outpatient (REF) | payer OTHER, SELFPAY ==
[2024-03-18 14:59] LABS: H Pylori Breath Test Positive (Negative)
== END 2024-03-17 12:26 | disposition home or self-care (01) ==
LOC: HO.LNP 12:25
PROVIDERS: Visit Provider Nurse Practitioner Family
DX: K21.9 Gastro-esophageal reflux disease without esophagitis (principal)
CPT/HCPCS: 83013

== ENCOUNTER 2024-03-23 13:20 | Outpatient (AMB) | payer OTHER, SELFPAY ==
[2024-03-23 13:22] VITALS: BMI 24.2
--- NOTE | 2024-03-23 13:22 | A.OFFVIS_ITS ---
Vital Signs 03/23/24 13:22 Height 5 ft 4 in Weight 141 lb BMI 24.2 Intake Visit Reasons: O/V rt knee injection Intake Note: Alice is a 63 year old female who presents today for a follow up of her right knee OA with Varus deformity. Last injection done on 12/16/23, if this injection was not helpful we would discuss surgery. Patient states she has been experiencing pain in both knees, patient agreed to get injection the rigt knee today. Allergies No Known Allergies [No Known Allergies*] Allergy (Verified 03/23/24 13:23) HPI HPI O/V rt knee injection: Details: Alice is a 63 year old female who presents today for a follow up of her right knee OA with Varus deformity. Last injection done on 12/16/23, if this injection was not helpful we would discuss surgery. Patient states she has been experiencing pain in both knees, patient agreed to get injection the rigt knee today. [facility] Medical History Encounter for colorectal cancer screening using Cologuard test Depression Peripheral neuropathy Asthma Back pain Arthritis Hypercholesterolemia Diabetes mellitus Surgical History (Updated 03/13/24 @ 11:56 by ORACIO Watts) Hx of cholecystectomy (~2021) H/O tubal ligation Family History Father Lung cancer Prostate cancer Emphysema lung Social History Household Members: Family and Children Housing: Apartment Do you presently have visiting nurse or other home services: No Alcohol intake: never Patient Tobacco Use Status: Never used Tobacco e-Cigarette/Vaping Use: Never Used Second Hand Smoke Exposure: Yes service: No Current occupational status: retired Current occupation: rt handed Physical Exam Vital Signs: BMI result Body Mass Index 24.2 Extrem Other: Tenderness to palpation lateral compartment right knee. Valgus malalignment with mild effusion Office Procedures Joint Injection/Aspiration Joint Injection/Aspiration Details: Injected 1 mL of Decadron and 3 mL 1% lidocaine and 3 mL of 0.25% Marcaine. Site was prepped using aseptic technique. Patient tolerated the procedure well. Primary Site: right knee Approach Used: anterolateral Coding 78145 - Large joint Procedure code (CPT) selection complete Assessment & Plan Assessment & Plan (1) Valgus deformity, not elsewhere classified, right knee: Code(s): M21.061 - Valgus deformity, not elsewhere classified, right knee Category: Medical Plan: 63-year-old woman with right knee osteoarthritis and significant risk factors for arthroplasty. I injected her right knee today. She can follow up as needed. We did discuss surgery but at this time she is not prepared to undergo that invasive of a procedure. Coding Level of Care Code Est Pt Level 4 (08277) Diagnoses Valgus deformity, not elsewhere classified, right knee M21.061 CPT Codes Coding - 33313 Large joint: 24784 - Large joint ([id number])
== END 2024-03-23 14:01 | disposition home or self-care (01) ==
PROVIDERS: PCP Internal Medicine; Visit Provider Orthopaedic Surgery
DX: M21.061 Valgus deformity, not elsewhere classified, right knee (principal)
CPT/HCPCS: 20610; 99214

== ENCOUNTER → 2024-03-23 13:20 | Outpatient (BNVA) | payer OTHER, SELFPAY | PROVIDERS: PCP Internal Medicine; Visit Provider Orthopaedic Surgery | DX: M21.061 Valgus deformity, not elsewhere classified, right knee (principal) | CPT/HCPCS: 20610; 99212; J0665; J1100 ==

== ENCOUNTER 2024-06-07 17:07 | Emergency (ER) | payer OTHER, SELFPAY ==
--- NOTE | ~2024-06-07 | CT_ITS ---
EXAM: CT scan of the head and cervical spine. INDICATION: head injury, fall. TECHNIQUE: A noncontrast CT scan was performed from the skull base to the vertex. A noncontrast CT scan of the cervical spine was performed from the base of the skull through T1 at 2.5 mm and 1.25 mm collimation. Coronal and sagittal reformats were obtained at the acquisition workstation. This CT examination was performed using dose optimization techniques as appropriate, variously including the following: *Automated exposure control *Adjustment of mA and/or kV according to patient size (this includes techniques or standardized protocols for targeted exams where dose is matched to indication/reason for exam; i.e. extremities or head) *Use of iterative reconstruction technique DLP: 244 and 633 mGy-cm COMPARISON: 01/02/2022 FINDINGS: Head: There is no evidence of acute intracranial hemorrhage or territorial infarction. Croft-white matter differentiation is preserved. No abnormal mass effect or midline shift. No extra-axial fluid collections. No abnormal attenuation is demonstrated within the brain parenchyma. The ventricles and sulcal spaces are proportional without hydrocephalus. Proportional prominence of the ventricles and sulcal spaces. No acute osseous or soft tissue abnormalities. The mastoid air cells and visualized portions of the paranasal sinuses are well aerated. Cervical Spine: The atlantooccipital and atlantoaxial articulations remain well aligned. Straightening of the normal cervical lordosis. Otherwise, there is anatomic alignment of the vertebral bodies and posterior elements. No evidence of acute fracture or subluxation. The vertebral body heights and disc spaces are maintained. There is no prevertebral soft tissue swelling. The thyroid gland and remaining cervical soft tissues are normal in appearance. The lung apices demonstrate no abnormalities. CT/CT cervical spine wo IV con IMPRESSION: No acute intracranial pathology. No acute fracture subluxation cervical spine. Electronically signed by: Josué Sherman MD 06/07/2024 07:11 PM [facility]
[2024-06-07 17:42] VITALS: BP 164/90; BP 168/82; PULSE 106; PULSE 120; RESP 18; TEMP 37.1; O2SAT 97; O2SAT 99; BMI 25.2
--- NOTE | 2024-06-07 17:42 | ECG_ITS ---
Test Reason : FALL Blood Pressure : / mmHG Vent. Rate : 105 BPM Atrial Rate : 105 BPM P-R Int : 138 ms QRS Dur : 068 ms QT Int : 324 ms P-R-T Axes : 042 010 050 degrees QTc Int : 428 ms Sinus tachycardia Minimal voltage criteria for LVH, may be normal variant ( R in aVL ) Borderline ECG When compared with ECG of 17-JUN-2022 16:10, No significant change was found Referred By: Mandy Ambrose Electronically Signed By:Jair Irby
[2024-06-07 18:23] LABS: MANUAL DIFF FLAG NO
[2024-06-07 18:25] LABS: Basophils Absolute Auto 0.1 X10*3/uL (0.0-0.2); Basophils Percent Auto 0.6 % (0-2); Eosinophils Absolute Auto 0.9 X10*3/uL (0.0-0.4); Eosinophils Percent Auto 8.8 % (0-4); Hematocrit 35.6 % (37.0-47.0); Hemoglobin 11.8 g/dl (12.0-16.0); Imm Gran Abs Auto 0.03 X10*3/uL (0.00-0.03); Imm Gran Pct Auto 0.3 % (0.0-0.4); Lymphocytes Absolute Auto 2.7 X10*3/uL (1.2-4.9); Lymphocytes Percent Auto 28.1 % (20-40); Mean Corpuscular HGB Conc 33.1 g/dl (31.0-35.0); Mean Corpuscular Hemoglobin 26.5 pg (27.0-33.0); Mean Corpuscular Volume 79.8 fL (80.0-98.0); Mean Platelet Volume 9.5 fL (9.4-12.3); Monocytes Absolute Auto 0.5 X10*3/uL (0.1-1.2); Monocytes Percent Auto 5.4 % (2-11); Neutrophils Absolute Auto 5.5 x10*3/uL (2.0-8.3); Neutrophils Percent Auto 56.8 % (45-73); Platelet Count 459 X10*3/uL (160-400); Red Blood Count 4.46 X10*6/uL (4.20-5.50); Red Cell Distribution Width 13.6 % (11.0-16.0); White Blood Count 9.7 X10*3/uL (4.8-10.8)
[2024-06-07 18:29] LABS: INTERNATIONAL NORM RATIO 0.9 (0.9-1.1); Prothrombin Time 10.4 SEC (10.9-12.4)
[2024-06-07 18:32] LABS: Partial Thromboplastin Time 29.7 SEC (26.0-36.8)
[2024-06-07 18:37] LABS: Alanine Aminotransferase 9 U/L (0-31); Albumin Level 3.9 g/dL (3.5-5.0); Alkaline Phosphatase 103 U/L (39-117); Anion Gap 16 (12-20); Aspartate Amino Transferase 15 U/L (5-31); Bilirubin Total 0.2 mg/dL (0.0-1.0); Blood Urea Nitrogen 13 mg/dL (9-16); Calcium 9.4 mg/dL (8.4-10.2); Carbon Dioxide 23 mmol/L (22-29); Chloride 103 mmol/L (96-108); Creatinine Clr Calc Pharmacy 56.1; Estimated Glomerular Filt Rate 59; Glucose Random 340 mg/dL (60-115); Magnesium 1.6 mg/dL (1.6-2.6); Potassium 4.6 mmol/L (3.3-5.1); Sodium 137 mmol/L (135-145); Total Protein 8.1 g/dL (6.5-8.0)
[2024-06-07 18:44] LABS: Troponin-I High Sensitivity < 2.7 ng/L (<3.5-17.0)
[2024-06-07 18:56] VITALS: BP 171/79; PULSE 100; RESP 20; O2SAT 98
[2024-06-07 19:01] LABS: Influenza A PCR NEGATIVE (Negative); Influenza B PCR NEGATIVE (Negative); Resp Syncy Virus RNA Qual PCR NEGATIVE (Negative); SARS COV2 PCR INHOUSE NEGATIVE (Negative)
[2024-06-07 19:09] LABS: Appearance Urine Clear; Color Urine Yellow; Glucose Urine UA >=1000 mg/dL (Negative); Leukocyte Esterase Urine Negative (Negative); Nitrite Urine Negative (Negative); PH 6.5 (5.0-9.0); UMIC TRIGGER UACC YES; Urine Blood Negative (Negative); Urine Ketones Negative (Negative); Urine Protein Negative (Neg-Trace)
[2024-06-07 19:14] LABS: Bacteria Urine None Seen (None Seen); Hyaline Casts Urine 0-2 /LPF (0-2); RBC Urine 0-2 /HPF (0-2); Squamous Epithelial Cell Urine 0-2 /HPF (0-2); WBC Urine 0-5 /HPF (0-5)
[2024-06-07 21:01] VITALS: BP 151/71; PULSE 90; RESP 19; TEMP 36.8; O2SAT 98
[2024-06-07 22:14] VITALS: BP 150/76; PULSE 89; RESP 18; TEMP 36.8; O2SAT 98
--- NOTE | 2024-06-07 22:25 | ED_ITS ---
HPI - Fall General Chief Complaint: Fall Stated Complaint: got dizzy [place] Time Seen by Provider: 06/07/24 21:53 Source: patient Mode of arrival: ambulatory Limitations: no limitations History of Present Illness ED Provider: harry LOCKHART Narrative: Patient's history of vertigo for last 3 months was going up in escalator felt dizzy and fell backwards patient had CT scan of the head and C-spine which was negative patient not take any medication for her dizziness Related Data Home Medications ?Medication ?Instructions ?Recorded ?Confirmed acetaminophen 650 mg 650 mg PO Q8H PRN Pain 12/28/20 01/02/22 tablet,extended release albuterol sulfate 90 mcg/actuation 2 puff inhalation Q4-6H PRN 12/28/20 01/02/22 aerosol inhaler (Ventolin HFA) Shortness Of Breath fluoxetine 40 mg capsule 40 mg PO QAM 12/28/20 01/02/22 fluticasone propionate 50 1 spray intranasal DAILY 12/28/20 01/02/22 mcg/actuation nasal spray,suspension glipizide 10 mg tablet 10 mg PO BID 12/28/20 01/02/22 metformin 1,000 mg tablet 1,000 mg PO BID 12/28/20 01/02/22 insulin glargine 100 unit/mL (3 35 unit subcut QPM 04/07/21 01/02/22 mL) subcutaneous pen (Lantus Solostar U-100 Insulin) blood pressure test kit-large #1 ea 03/13/24 blood sugar diagnostic (FreeStyle #10 ea 03/13/24 Precision Akash Strips) buspirone 15 mg tablet 15 mg PO BID 03/13/24 calcium carbonate 500 mg-vitamin 1 tab PO BID 03/13/24 D3 5 mcg (200 unit) tablet (Oyster Shell Calcium-Vitamin D3) dulaglutide 1.5 mg/0.5 mL mg subcut 03/13/24 subcutaneous pen injector (Trulicity) empagliflozin 25 mg tablet 25 mg PO DAILY 03/13/24 (Jardiance) ergocalciferol (vitamin D2) 1,250 1,250 mcg PO QWEEK 03/13/24 mcg (50,000 unit) capsule flash glucose sensor (FreeStyle #1 ea 03/13/24 Mitch 2 Sensor kit) insulin degludec 100 unit/mL (3 unit subcut 03/13/24 mL) subcutaneous pen (Tresiba FlexTouch U-100 insulin) lancets 33 gauge (TRUEplus Lancets) #100 ea 03/13/24 melatonin 3 mg tablet mg PO 03/13/24 pen needle, diabetic 32 gauge x #1,200 ea 03/13/24 (Pentips) rosuvastatin 40 mg tablet 40 mg PO DAILY 03/13/24 Previous Rx's ?Medication ?Instructions ?Recorded aspirin 81 mg tablet,delayed 81 mg PO DAILY 30 days #30 tabs 01/05/22 release clopidogrel 75 mg tablet 75 mg PO DAILY 30 days #30 tabs 01/05/22 cyclobenzaprine 5 mg tablet 5 mg PO TID PRN back pain 7 days 01/21/22 #21 tabs aspirin 81 mg tablet,delayed 81 mg PO DAILY #30 tabs 06/17/22 release (Adult Low Dose Aspirin) kcdjejaeuu-pessvnogopkhd-jmrsyscv 1 cap PO Q6H PRN headache #20 caps 06/17/22 50 mg-300 mg-40 mg capsule (Fioricet) lorazepam 0.5 mg tablet (Ativan) 0.5 mg PO BEDTIME PRN sleep #10 06/17/22 tabs acetaminophen 300 mg-codeine 30 mg 1 tab PO Q8H PRN pain #14 tabs 08/16/22 tablet ciclopirox 8 %-fluconazole 1 1 ml topical TID Nail fungus #15 08/16/22 %-terbinafine 1 % topical solution grams famotidine 20 mg tablet (Pepcid) 20 mg PO BEDTIME #30 tabs 03/13/24 pantoprazole 40 mg tablet,delayed 40 mg PO DAILY #30 tabs 03/13/24 release bismuth subsalicylate 262 mg 2 tab PO QID diarrhea 14 days #112 03/18/24 chewable tablet tabs metronidazole 500 mg tablet 1,000 mg (2 x 500 mg) PO BID #56 03/18/24 tabs tetracycline 500 mg capsule 1,000 mg (2 x 500 mg) PO Q12H #56 03/18/24 caps meclizine 12.5 mg tablet 12.5 mg PO TID PRN dizziness #20 06/07/24 tabs Allergies Allergy/AdvReac Type Severity Reaction Status Date / Time No Known Allergies Allergy Verified 06/07/24 17:46 [No Known Allergies*] Review of Systems 2 Review of Systems: Yes all other systems are reviewed and are negative [facility] Past Medical History Medical History Encounter for colorectal cancer screening using Cologuard test Depression Peripheral neuropathy Asthma Back pain Arthritis Hypercholesterolemia Diabetes mellitus Surgical History Hx of cholecystectomy (~2021) H/O tubal ligation Family History Family History Father Lung cancer Prostate cancer Emphysema lung Social History Social History Household Members: Family and Children Housing: Apartment Do you presently have visiting nurse or other home services: No Unable to assess alcohol history related to: Unknown Alcohol intake: never Patient Tobacco Use Status: Never used Tobacco e-Cigarette/Vaping Use: Never Used Second Hand Smoke Exposure: Yes Use of substances other than those prescribed or required for medical reasons: Unknown Advance Directives: No Advance Directives Information Provided: No service: No Current occupational status: retired Current occupation: rt handed Physical Exam 2 Vital Signs: Vital Signs: Last Vital Signs Temp 98.2 F 06/07/24 22:14 Pulse 89 06/07/24 22:14 Resp 18 06/07/24 22:14 BP 150/76 H 06/07/24 22:14 Pulse Ox 98 06/07/24 22:14 O2 Del Method Room Air 06/07/24 22:14 BMI result Body Mass Index 25.2 Appearance: Alert. Oriented X3. No acute distress. Eyes: PERRLA, No Nystagmus ENT: Pharynx normal. Oral Mucosa moist at nc Neck: Normal inspection. Neck supple. CVS: Normal heart rate and rhythm. Pulses normal. Respiratory: No respiratory distress. Equal air entry bilateral, no wheezing/rales/rhonchi Abdomen: Soft and nontender. Bowel sounds are present, no mass palpable, no CVA tenderness Skin: Skin warm and dry. Normal skin color. Normal skin turgor. Extremities: No lower extremity edema. No calf tenderness Neuro: Oriented X 3. No motor deficit. No sensory deficit.No cerebellar signs , cranial nerves II-XII intact Medical Decision Making Differential Diagnosis Patient with history of vertigo for last 3 months lost balance became and fell on the escalator without any significant injury head CT and cervical spine CT and labs were stable patient is feeling much better at this time will discharge patient home on meclizine Lab Data MDM Lab Attestation statement: I reviewed the patient's lab results. 06/07/24 18:16 06/07/24 18:16 Labs: Lab Results 06/07/24 06/07/24 Range/Units 18:16 18:57 WBC 9.7 (4.8-10.8) X10*3/uL RBC 4.46 (4.20-5.50) X10*6/uL Hgb 11.8 L (12.0-16.0) g/dl Hct 35.6 L (37.0-47.0) % MCV 79.8 L (80.0-98.0) fL MCH 26.5 L (27.0-33.0) pg MCHC 33.1 (31.0-35.0) g/dl RDW 13.6 (11.0-16.0) % Plt Count 459 H (160-400) X10*3/uL MPV 9.5 (9.4-12.3) fL Immature Gran % (Auto) 0.3 (0.0-0.4) % Neut % (Auto) 56.8 (45-73) % Lymph % (Auto) 28.1 (20-40) % [place] % (Auto) 5.4 (2-11) % Eos % (Auto) 8.8 H (0-4) % Baso % (Auto) 0.6 (0-2) % Lymph # (Auto) 2.7 (1.2-4.9) X10*3/uL [place] # (Auto) 0.5 (0.1-1.2) X10*3/uL Eos # (Auto) 0.9 H (0.0-0.4) X10*3/uL Baso # (Auto) 0.1 (0.0-0.2) X10*3/uL Abs Immat Gran (auto) 0.03 (0.00-0.03) X10*3/uL Absolute Neuts (auto) 5.5 (2.0-8.3) x10*3/uL Absolute Nucleated RBC 0.000 (0.0-0.012) X10*3/uL Nucleated RBC % (auto) 0.0 (0.0-0.2) /100WBC PT 10.4 L (10.9-12.4) SEC INR 0.9 (0.9-1.1) APTT 29.7 (26.0-36.8) SEC Sodium 137 (135-145) mmol/L Potassium 4.6 (3.3-5.1) mmol/L Chloride 103 (96-108) mmol/L Carbon Dioxide 23 (22-29) mmol/L Anion Gap 16 (12-20) BUN 13 (9-16) mg/dL Creatinine 0.95 (0.5-1.4) mg/dL Estim Creat Clear Calc 56.1 Estimated GFR 59 Random Glucose 340 H (60-115) mg/dL Calcium 9.4 D (8.4-10.2) mg/dL Magnesium 1.6 (1.6-2.6) mg/dL Total Bilirubin 0.2 (0.0-1.0) mg/dL AST 15 (5-31) U/L ALT 9 (0-31) U/L Alkaline Phosphatase 103 (39-117) U/L Troponin I High Sens < 2.7 (<3.5-17.0) ng/L Total Protein 8.1 H (6.5-8.0) g/dL Albumin 3.9 (3.5-5.0) g/dL Urine Color Yellow Urine Appearance Clear Urine pH 6.5 (5.0-9.0) Ur Specific [place] 1.010 (1.005-1.025) Urine Protein Negative (Neg-Trace) mg/dL Urine Glucose (UA) >=1000 H (Negative) mg/dL Urine Ketones Negative (Negative) mg/dL Urine Blood Negative (Negative) Urine Nitrite Negative (Negative) Ur Leukocyte Esterase Negative (Negative) Urine RBC 0-2 (0-2) /HPF Urine WBC 0-5 (0-5) /HPF Ur Squamous Epith Cells 0-2 (0-2) /HPF Urine Bacteria None Seen (None Seen) Hyaline Casts 0-2 (0-2) /LPF Influenza Type A (PCR) NEGATIVE (Negative) Influenza Type B (PCR) NEGATIVE (Negative) RSV RNA Qual (PCR) NEGATIVE (Negative) SARS-CoV-2 RNA (RT-PCR) NEGATIVE (Negative) Independent Interpretation I performed an independent interpretation of an: EKG Interpretation: Heart rate 105 beats per minute sinus tachycardia no acute ST-T changes no acute ischemia normal axis Discharge Plan Discharge Clinical Impression: Benign paroxysmal positional nystagmus, Fall (on) (from) other stairs and steps, initial encounter Patient Disposition: Home, Self-Care Instructions: Benign Paroxysmal Positional Vertigo (ED), Fall Prevention (ED) Additional Instructions: Take med meclizine every 8 hours as needed for dizziness Care and cautions as advised Prescriptions: New meclizine 12.5 mg tablet 12.5 mg PO TID PRN (Reason: dizziness) Qty: 20 0RF No Action bismuth subsalicylate 262 mg tablet,chewable 2 tab PO QID 14 Days Qty: 112 0RF metronidazole 500 mg tablet 1,000 mg PO BID Qty: 56 0RF tetracycline 500 mg capsule 1,000 mg PO Q12H Qty: 56 0RF fluoxetine 40 mg capsule 40 mg PO QAM glipizide 10 mg tablet 10 mg PO BID acetaminophen 650 mg tablet extended release 650 mg PO Q8H PRN (Reason: Pain) metformin 1,000 mg tablet 1,000 mg PO BID albuterol sulfate [Ventolin HFA] 90 mcg/actuation HFA aerosol inhaler 2 puff inhalation Q4-6H PRN (Reason: Shortness Of Breath) fluticasone propionate 50 mcg/actuation spray,suspension 1 spray intranasal DAILY Rx Instructions: IN EACH NOSTRIL aspirin 81 mg Tablet,Delayed Release (Dr/Ec) 81 mg PO DAILY 30 Days Qty: 30 0RF clopidogrel 75 mg Tablet 75 mg PO DAILY 30 Days Qty: 30 0RF cyclobenzaprine 5 mg tablet 5 mg PO TID PRN (Reason: back pain) 7 Days Qty: 21 0RF acetaminophen-codeine 300-30 mg tablet 1 tab PO Q8H PRN (Reason: pain) Qty: 14 0RF rofnyteqhf-luhchzbycsl-prgzmsd 8-1-1 % solution 1 ml topical TID Qty: 15 0RF kvkesyzgnd-pzyzgfmsprxyi-ahhn [Fioricet] 50-300-40 mg capsule 1 cap PO Q6H PRN (Reason: headache) Qty: 20 0RF lorazepam [Ativan] 0.5 mg tablet 0.5 mg PO BEDTIME PRN (Reason: sleep) Qty: 10 0RF aspirin [Adult Low Dose Aspirin] 81 mg tablet,delayed release (DR/EC) 81 mg PO DAILY Qty: 30 3RF Lantus Solostar U-100 Insulin 100 unit/mL (3 mL) insulin pen 35 unit subcut QPM buspirone 15 mg tablet 15 mg PO BID Trulicity 1.5 mg/0.5 mL pen injector subcut (DME) FreeStyle Mitch 2 Sensor Kit See Rx Instructions .ROUTE .MEDSUPPLY Qty: 1 Rx Instructions: As directed melatonin 3 mg tablet PO (DME) pen needle, diabetic [Pentips] 32 gauge x 5/32 needle See Rx Instructions .ROUTE .MEDSUPPLY Qty: 1200 Rx Instructions: As directed Jardiance 25 mg tablet 25 mg PO DAILY (DME) FreeStyle Precision Akash Strips Strip See Rx Instructions .ROUTE .MEDSUPPLY Qty: 10 Rx Instructions: As directed insulin degludec [Tresiba FlexTouch U-100] 100 unit/mL (3 mL) insulin pen subcut (DME) lancets [TRUEplus Lancets] 33 gauge misc See Rx Instructions .ROUTE .MEDSUPPLY Qty: 100 Rx Instructions: As directed ergocalciferol (vitamin D2) 1,250 mcg (50,000 unit) capsule 1,250 mcg PO QWEEK rosuvastatin 40 mg tablet 40 mg PO DAILY calcium carbonate-vitamin D3 [Oyster Shell Calcium-Vit D3] 500 mg-5 mcg (200 unit) tablet 1 tab PO BID (DME) blood pressure test kit-large Kit See Rx Instructions .ROUTE 3XW Qty: 1 Rx Instructions: As directed famotidine [Pepcid] 20 mg tablet 20 mg PO BEDTIME Qty: 30 3RF pantoprazole 40 mg tablet,delayed release (DR/EC) 40 mg PO DAILY Qty: 30 2RF Rx Instructions: take one tablet half an hour before breakfast Print Language: Burkinan
[2024-06-07 22:29] VITALS: BP 150/76; PULSE 89; RESP 18; TEMP 36.8; O2SAT 98
== END 2024-06-07 22:33 | disposition home or self-care (01) ==
PROVIDERS: Physician Assistant Medical; Emergency Provider Internal Medicine
DX: S09.90XA Unspecified injury of head, initial encounter (principal); H81.4 Vertigo of central origin; R00.0 Tachycardia, unspecified; W10.0XXA Fall (on)(from) escalator, initial encounter; R10.2 Pelvic and perineal pain; M54.2 Cervicalgia; R51.9 Headache, unspecified; Y93.01 Activity, walking, marching and hiking; Y92.89 Other specified places as the place of occurrence of the external cause; Y99.8 Other external cause status; Z03.818 Encounter for observation for suspected exposure to other biological agents ruled out; Z79.899 Other long term (current) drug therapy
CPT/HCPCS: 0241U; 70450; 72125; 80053; 81001; 83735; 84484; 85025; 85610; 85730; 93005; 99284

== ENCOUNTER → 2024-06-07 17:42 | Outpatient (BNV) | payer OTHER, SELFPAY | PROVIDERS: Emergency Provider Internal Medicine; Visit Provider Internal Medicine Cardiovascular Disease | DX: R00.0 Tachycardia, unspecified (principal) | CPT/HCPCS: 93010 ==

== ENCOUNTER 2024-06-12 12:59 | Outpatient (REF) | payer OTHER, SELFPAY ==
--- NOTE | ~2024-06-12 | XR_ITS ---
EXAMINATION: XR LUMBOSACRAL SPINE CLINICAL INFORMATION: Lower back pain following a fall. COMPARISON: Lumbar spine radiographs dated 04/12/2022. TECHNIQUE: Three views of the lumbosacral spine. FINDINGS: Minimal levocurvature of the lumbar spine, unchanged. The lumbar lordosis is maintained. No acute fracture or subluxation. No loss of vertebral body height. Mild multilevel loss of intervertebral disc height with endplate osteophytes, most prominent at L3-L4. Findings are slightly progressed when compared to the prior examination. No concerning lytic or blastic osseous lesion. Atherosclerotic calcifications. Right upper quadrant surgical clips. Moderate stool burden. XR/XR lumbar spine 2-3V IMPRESSION: 1. No acute fracture or subluxation. 2. Multilevel degenerative disc disease, most prominent at L3-L4, slightly progressed when compared to the prior examination. Electronically signed by: Timo Diez MD 06/12/2024 12:01 PM [facility]
[2024-06-12 14:09] LABS: HPV 16,18/45 See PAP report
[2024-06-12 15:16] LABS: Bacterial Vaginosis PCR NEGATIVE (Negative); Candida Group PCR NOT DETECTED (Not Detect); Candida glab krusei PCR NOT DETECTED (Not Detect); Trichomonas vaginalis PCR NOT DETECTED (Not Detect)
[2024-06-12 15:50] LABS: CT PCR NOT DETECTED (Not Detect.); NG PCR NOT DETECTED (Not Detect.)
== END 2024-06-12 13:00 | disposition home or self-care (01) ==
LOC: HO.HHCLNP 12:59
PROVIDERS: Visit Provider Internal Medicine
DX: Z01.419 Encounter for gynecological examination (general) (routine) without abnormal findings (principal); M54.50 Low back pain, unspecified; Z91.81 History of falling
CPT/HCPCS: 0352U; 72100; 87491; 87591; 87624; 88175

== ENCOUNTER → 2024-09-04 07:50 | Outpatient (BNV) | payer OTHER, SELFPAY | PROVIDERS: PCP Internal Medicine; Visit Provider Physician Assistant Surgical | DX: R13.10 Dysphagia, unspecified (principal) | CPT/HCPCS: 74246; 74248 ==

== ENCOUNTER 2024-09-18 14:38 | Outpatient (AMB) | payer OTHER, SELFPAY ==
--- NOTE | 2024-09-18 14:52 | MHC.OFFVIS ---
Vital Signs 09/18/24 14:55 Height 5 ft 4 in Weight 131 lb 6.328 oz BMI 22.6 BP 132/72 Blood Pressure Location Rt brachial Position Sitting Pulse 90 Pulse Source Pulse Oximeter Pulse Oximetry (%) 96 Oxygen Delivery Method Room Air Intake Visit Reasons: Post NM Study FUV. Intake Note: ESTABLISHED PATIENT for mgmt of dysphagia. Imaging done, Labs incomplete. Chief Complaint; C/O similar sx to previous appt. N+V occasionally, reflux, epigastric pain intermittently, dysphagia. Pt does report that the meds are helping but have not relieved their sx. Pt denies any additional concerns at this time. Med list verified with pt visually. Certified Nutritionist Required: Yes Certified Nutritionist Services: Certified Nutritionist Present Certified Nutritionist Name: + Anders [phone] Information Interpreted: clinical only Accompanied by: Self / Same As Patient Allergies No Known Allergies [No Known Allergies*] Allergy (Verified 09/18/24 14:52) HPI HPI Post NM Study FUV.: Details: LAST VISIT GERD (gastroesophageal reflux disease) Dysphagia Postprandial epigastric pain Postprandial abdominal bloating Plan Will do H pylori breath test in the office today, will treat empirically if positive. Patient will be started on pantoprazole in the morning and famotidine at bedtime. Discussed with patient avoiding dietary triggers and late night snacking. Eating smaller meals and more often. Staying upright for minimum 3 hours after meals discussed with patient. Will send patient for upper GI with barium swallow to evaluate for reflux, Schatzki ring, achalasia, reflux. Patient will be sent for upper endoscopy that will be discussed next visit. Follow-up in the office in 3 months. Patient is to call if ordered treatment will not be effective. Patient is agreeable to this plan and verbalizes understanding of instructions. She was given the opportunity to ask questions and all questions answered. ? Thank you for allowing me to participate in her care Orders Orders Vitamin D 25-OH (D2 and D3) Today E55.9 Lipase Today R10.9 FL upper GI w Ba Swallow Today R13.10 H Pylori Breath Test Today K21.9 Medications New famotidine (Pepcid) 20 mg PO BEDTIME 30 tabs 3RF K21.9 pantoprazole take one tablet half an hour before breakfast 40 mg PO DAILY 30 tabs 2RF K21.9 TODAY'S VISIT Patient is here today for follow-up and discussed upper GI series with barium swallow. Cricopharyngeal achalasia, severe reflux noted. Patient will be scheduled for upper endoscopy. History of H pylori treated back in February. Patient will need to repeat. Currently she is on PPI will stop that and have her take Pepcid and book in the office appointment with the nurse. Patient continues to have epigastric pain and acid reflux with dyspepsia, occasional nausea without dysphagia or odynophagia. Patient reports that when last treated with antibiotics for H pylori she completed the whole treatment. [facility] Medical History Encounter for colorectal cancer screening using Cologuard test Depression Peripheral neuropathy Asthma Back pain Arthritis Hypercholesterolemia Diabetes mellitus Surgical History Hx of cholecystectomy (~2021) H/O tubal ligation Family History Father Lung cancer Prostate cancer Emphysema lung Social History Household Members: Family and Children Housing: Apartment Do you presently have visiting nurse or other home services: No Unable to assess alcohol history related to: Unknown Alcohol intake: never Patient Tobacco Use Status: Never used Tobacco e-Cigarette/Vaping Use: Never Used Second Hand Smoke Exposure: Yes service: No Current occupational status: retired Current occupation: rt handed Review of Systems Const Denies weight gain and Denies weight loss ENT Reports no additional complaints, Denies dysphagia and Denies odynophagia Card Reports no additional complaints Resp Reports no additional complaints GI Reports abdominal pain (Epigastric), Denies belching, Denies melena, Denies bloating, Denies change in bowel habits, Denies dysphagia, Denies excessive flatus, Reports dyspepsia, Reports heartburn, Denies diarrhea, Denies loose stools, Reports nausea, Denies odynophagia and Denies vomiting Reports no additional complaints Musc Reports no additional complaints Neuro Reports no additional complaints Psych Reports no additional complaints Endo Reports no additional complaints Physical Exam Vital Signs: Last Vital Signs Pulse 90 09/18/24 14:55 BP 132/72 09/18/24 14:55 Pulse Ox 96 09/18/24 14:55 Oxygen Delivery Method Room Air 09/18/24 14:55 BMI result Body Mass Index 22.6 Const General: healthy appearing, no acute distress and well developed Nutritional Appearance: well nourished Orientation/consciousness: patient oriented x3 Resp Effort & Inspection: normal respiratory effort, able to speak in complete sentences, no tracheal deviation and symmetric chest movement Auscultation: clear to auscultation bilaterally Cardio Rate: regular rate GI Inspection: Yes normal to inspection and No distended Palpation (GI): Soft to palpation, not firm, nontender and No hepatosplenomegaly present Auscultation: normal bowel sounds General: Yes no CVA tenderness Back/Spine/Pelvis Back: no CVA tenderness Skin General skin exam: elasticity normal, turgor normal and dry skin Neuro General: patient oriented x3 Psych Appearance: grossly normal Mental Status: mental status grossly normal Results Reviewed Results Reviewed: UPPER GI SERIES WITH BARIUM SWALLOW IMPRESSION: 1. Trace laryngeal penetration with thick barium. 2. Mild cricopharyngeal achalasia. 3. Mild esophageal dysmotility. 4. Felinization of the mid esophageal mucosa. This is a benign finding associated chronic gastroesophageal reflux. Significant gastroesophageal reflux was seen during this examination. 5. Small diverticula noted in the third segment of the duodenum and the proximal jejunum. Assessment & Plan Assessment & Plan (1) GERD (gastroesophageal reflux disease): Code(s): K21.9 - Gastro-esophageal reflux disease without esophagitis Qualifiers: Esophagitis presence: esophagitis presence not specified Qualified Code(s): K21.9 - Gastro-esophageal reflux disease without esophagitis (2) Dysphagia: Code(s): R13.10 - Dysphagia, unspecified Qualifiers: Dysphagia type: pharyngoesophageal phase Qualified Code(s): R13.14 - Dysphagia, pharyngoesophageal phase (3) Postprandial epigastric pain: Code(s): R10.13 - Epigastric pain (4) Postprandial abdominal bloating: Code(s): R14.0 - Abdominal distension (gaseous) (5) History of Helicobacter pylori infection: Code(s): Z86.19 - Personal history of other infectious and parasitic diseases (6) Constipation: Code(s): K59.00 - Constipation, unspecified Qualifiers: Constipation type: slow transit constipation Qualified Code(s): K59.01 - Slow transit constipation Plan Will check for H pylori and treat empirically is positive. Patient should be sent for upper endoscopy to re-evaluate. Continue with PPI after breath test. Patient reports occasional constipation may take senna 2 tablets daily. Increase fluid intake and activity to promote better bowel motility. Patient was encouraged to avoid dietary triggers and late night snacking. Staying upright for minimum 3 hours after meals discussed patient. Follow-up in 10 weeks, sooner on as needed basis. Patient is agreeable to this plan and verbalizes understanding of instructions. She was given the opportunity to ask questions and all questions answered. Thank you for allowing me to participate in her care Orders: Orders H Pylori Breath Test 09/18/24 K21.9 - Gastro-esophageal reflux disease without esophagitis Medications: New famotidine (Pepcid) 20 mg PO BID 30 tabs 3RF K29.70 - Gastritis, unspecified, without bleeding sennosides (Natural Senna Laxative) 17.2 mg (2 x 8.6 mg) PO BEDTIME 180 tabs 3RF constipation K59.00 - Constipation, unspecified Coding Level of Care Code Tele Est Pt Level 3 (59406) Complex EM visit Add On G2211 Diagnoses Gastroesophageal reflux disease, unspecified whether esophagitis present K21.9 Esophagitis presence: esophagitis presence not specified Pharyngoesophageal dysphagia R13.14 Dysphagia type: pharyngoesophageal phase Postprandial epigastric pain R10.13 Postprandial abdominal bloating R14.0 History of Helicobacter pylori infection Z86.19 Slow transit constipation K59.01 Constipation type: slow transit constipation Time Spent (min) 40 Comment 25 minute spent with patient and additional 15 minutes spent reviewing her records
[2024-09-18 14:55] VITALS: BP 132/72; PULSE 90; O2SAT 96; BMI 22.6
--- OUTSIDE RECORDS SUMMARY | 2024-09-18 14:56 | XMS_ITS | Encounter Summary ---
Author Organization [employer] Address [address] [place] [address] Care Team Providers Care Obiee Report Developer Name Role Phone Yolanda Priest MD Primary Care Provider + King Orlando PharmD Unavailable [phone] Encounter Details Date Type Department Care Team (Late st Contact Info) Description 09/04/2024 Orders Only [facility] External Provider, [facility] Social History Tobacco Use Types Packs/Day Years Used Date Smoking Tobacco: Never Passive Smoke Exposure: Never Smokeless Tobacco: Never Alcohol Use Standard Drinks/Week Comments Not Currently 0 (1 standard drink = 0.6 oz pur e alcohol) rare Alcohol Answer Date Recorded Frequency of Alcohol Consumption Not on file 02/24/2024 Average Number of Drinks Not on file 024 Frequency of Binge Drinking Not on file 01/27 Score 0 02/24/2024 Depression Answer Date Recorded Patient Health Questionnaire-9 Score 13 02/24/2024 Patient Health Questionnaire-9 Score 13 02/24/2024 Last PHQ-9: Questionnaire Data Not on file 0 02/24/2024 Housing Stability Answer Date Recorded What is your housing situation today? I do not have housing (Staying with others, in a hotel, in a group home, living outside on the street, on a beach, in a car, or in a park 11/26/[address] you li ve. Do you have problems with any of the following? None of the above 11/26/2023 Food Insecurity Answer Date Recorded Within the past 12 months, y ou worried that your food would run out before you got money to buy more: Never True 11/26/2023 Within the past 12 months,th e food you bought just didn't last and you didn't have enough money to get more: Never True Transportation Answer Date Recorded In the past 12 months, has l ack of transportation kept you from medical appts, meetings, work or from getting things needed for daily living? No 11/26/2023 Utilities Answer Date Recorded In the past 12 months, has t he electric, gas, oil or water company threatened to shut off services in your home? No 11/26/2023 Depression Answer Date Recorded Patient Health Questionnaire-2 Score 5 02/24/2024 Comments Unknown Sex and Gender Information Value Date Recorded Sex Assigned at Female 05/28/2022 10:31 AM EDT Legal Sex Female 10:31 AM EDT Gender Identity Female 05/28/2022 10:31 AM EDT Sexual Orientation Straight 05/28/2022 10 :31 AM EDT documented as of this encounter Plan of Treatment Upcoming Encounters Date Type Department Care Team (Late st Contact Info) Description 09/21/2024 3:30 PM EST Office Visit [facility] OPTOMETRY [address] [place] [address] Marek, Reyna, OD [address] [place] [address] documented as of this encounter Goals Goal Patient Goal Type Associated Problems Recent Progress Patient-Stated? Author Blood Pressure < 140/90 Blood Pressure 128/62(2024 3:12 PM EST) No King Orlando, PharmJanelle Hemoglobin A1c < 7 Result Component 8.8( 3:46 PM EDT) No King Orlando, PharmD documented as of this encounter Procedures Procedure Name Priority Date/Time Associated Diagnosis Comments FL UPPER GI W BARIUM SWALLOW Routine 09/04/2024 7:50 AM EST documented in this encounter Results * FL Upper GI w/Barium Swallow (09/04/2024 7:50 AM EST) Anatomical Region Laterality Modality Body Radiographic Kalyani ging 09/04/2024 7:50 AM EST Narrative 09/04/2024 5:00 PM EST ? [facility] ?[address] ?[place] [address] ? Fluoroscopy Report ? Signed ? Patient: Carolyn Whitmore,Alice M ?MR#: [id number] ?? [id number] ? : 1960 ?Acct:[id number] ? Age/Sex: 63 / F ?ADM Date: 09/04/24 ? Loc: HO.XRAY ? Attending Dr: Emmy AGUILAR ? Ordering Physician: Emmy Clark ?? Date of Service: 09/04/24 ?? Procedure(s): FL upper GI w Ba Swallow ?? Accession Number(s): [id number] ? cc: Yolanda Priest MD; Emmy Clark ? EXAMINATION: ?? XR FLUOROSCOPY UPPER GI WITH AIR ? CLINICAL INFORMATION: ?? Dysphagia. ? COMPARISON: ?? None ? TECHNIQUE: ?? Fluoroscopic air contrast upper GI examination was performed utilizing ?? standard techniques with thin and thick barium and effervescent ?? granules. Numerous spot images were obtained. ? FINDINGS: ?? Lateral cine images of the oropharynx and hypopharynx demonstrate ?? normal swallow mechanism with normal epiglottic inversion and soft ?? palate elevation. There is trace laryngeal penetration with thick ?? barium. No tracheal penetration, glottic or subglottic aspiration ?? identified. No nasopharyngeal reflux present. Hypopharyngeal structures ?? appear normal without evidence of mass or diverticulum. There is mild ?? cricopharyngeal achalasia present. ? Dual and single contrast images of the esophagus demonstrate a normal ?? caliber and contour. There is felinization of the mid esophageal ?? mucosa. ??No evidence of stricture, mass, or ulcerations identified. ?? Esophageal peristalsis is mildly disorganized. ? No evidence of hiatus hernia identified. Significant gastroesophageal ?? reflux at the level of the thoracic inlet. ? Dual contrast and single contrast images of the stomach demonstrated ?? normal contour and mucosal pattern without evidence of mass, ?? ulceration, or other abnormality. Contrast freely passed into the ?? gastric antrum and duodenal bulb without delay. ? Single and air-contrast images of the duodenal bulb demonstrate no ?? abnormality. The duodenal sweep has a normal appearance, course, and ?? mucosal fold appearance. Small diverticula are noted in the third ?? segment of duodenum and in the proximal jejunum. The imaged proximal ?? jejunum has a normal fold pattern and caliber. ? FLUOROSCOPY TIME: ?? 4 minutes 42 seconds ? Number of Spot Images: 8 ?? Number of Cine: 16 ? DOSE AREA PRODUCT: ?? 2228 uGy-m2 (microgray-meter squared) ? FL/FL upper GI w Ba Swallow ?? IMPRESSION: ?? 1. Trace laryngeal penetration with thick barium. ?? 2. Mild cricopharyngeal achalasia. ?? 3. Mild esophageal dysmotility. ?? 4. Felinization of the mid esophageal mucosa. This is a benign finding ?? associated chronic gastroesophageal reflux. ??Significant ?? gastroesophageal reflux was seen during this examination. ?? 5. Small diverticula noted in the third segment of the duodenum and the ?? proximal jejunum. ? This procedure was performed by Balaji Patel PA-C, and supervised by ?? Dr. Hull ? Electronically signed by: ??Jian Hull MD ??09/04/2024 04:57 PM EST RP ?? Workstation: [id number] ? Dictated By: ?Balaji Patel ? Signed By: ?<Electronically signed by Balaji Patel in OV> ? 09/04/24 1657 ?<Electronically signed by Jian Hull MD in OV> ? 09/04/24 1700 ? DD/ 0750 ? TD/TT: 09/04/24 08 ? Train Operations Supervisor: ? Procedure Note Angeline Beaver - 09/04/[address] [address] Fluoroscopy Report Signed Patient: Alice Amin MMR#: [id number] : 1960Acct:[id number] Age/Sex: 63 / FADM Date: 09/04/24 Loc: GABI Attending Dr: Emmy Clark ENVIRONMENTAL SCIENCES PROFESSOR-BC Ordering Physician: Emmy Clark-STACEY Date of Service: 09/04/24 Procedure(s): FL upper GI w Ba Swallow Accession Number(s): [id number] cc: Yolanda Priest MD; Emmy Clark [facility]- EXAMINATION: XR FLUOROSCOPY UPPER GI WITH AIR CLINICAL INFORMATION: Dysphagia. COMPARISON: None TECHNIQUE: Fluoroscopic air contrast upper GI examination was performed utilizing standard techniques with thin and thick barium and effervescent granules. Numerous spot images were obtained. FINDINGS: Lateral cine images of the oropharynx and hypopharynx demonstrate normal swallow mechanism with normal epiglottic inversion and soft palate elevation. There is trace laryngeal penetration with thick barium. No tracheal penetration, glottic or subglottic aspiration identified. No nasopharyngeal reflux present. Hypopharyngeal structures appear normal without evidence of mass or diverticulum. There is mild cricopharyngeal achalasia present. Dual and single contrast images of the esophagus demonstrate a normal caliber and contour. There is felinization of the mid esophageal mucosa. No evidence of stricture, mass, or ulcerations identified. Esophageal peristalsis is mildly disorganized. No evidence of hiatus hernia identified. Significant gastroesophageal reflux at the level of the thoracic inlet. Dual contrast and single contrast images of the stomach demonstrated normal contour and mucosal pattern without evidence of mass, ulceration, or other abnormality. Contrast freely passed into the gastric antrum and duodenal bulb without delay. Single and air-contrast images of the duodenal bulb demonstrate no abnormality. The duodenal sweep has a normal appearance, course, and mucosal fold appearance. Small diverticula are noted in the third segment of duodenum and in the proximal jejunum. The imaged proximal jejunum has a normal fold pattern and caliber. FLUOROSCOPY TIME: 4 minutes 42 seconds Number of Spot Images: 8 Number of Cine: 16 DOSE AREA PRODUCT: 2228 uGy-m2 (microgray-meter squared) FL/FL upper GI w Ba Swallow IMPRESSION: 1. Trace laryngeal penetration with thick barium. 2. Mild cricopharyngeal achalasia. 3. Mild esophageal dysmotility. 4. Felinization of the mid esophageal mucosa. This is a benign finding associated chronic gastroesophageal reflux. Significant gastroesophageal reflux was seen during this examination. 5. Small diverticula noted in the third segment of the duodenum and the proximal jejunum. This procedure was performed by Baljai Patel PA-C, and supervised by Dr. Hull Electronically signed by: Jian Hull MD 09/04/2024 04:57 PM [facility] Dictated By: Balaji Patel Signed By: <Electronically signed by Balaji Patel in OV> 09/04/24 1657 <Electronically signed by Jian Hull MD in OV> 09/04/24 1700 DD/ 0750 TD/TT: 09/04/24 0813 Train Operations Supervisor: [facility] External Provider IMG FLU OROSCOPY PROCEDURES Final Result documented in this encounter Visit Diagnoses Not on filedocumented in this encounter Additional Health Concerns Assessment Noted Time PHQ-9 Depression Total Score: 13 024 1:39 PM EDT documented as of this encounter Care Teams Obiee Report Developer Relationship Specialty Start Date End Date Yolanda Priest MD [address] [place] [address] PCP - General Family Medicine 01/10/17 King Orlando, Aditi [address] [place] [address] Pharmacist Internal Medicine 10/02/23 documented as of this encounter
--- OUTSIDE RECORDS SUMMARY | 2024-09-18 14:56 | XMS_ITS | Encounter Summary ---
Author Organization [employer] Address [address] [place] [address] Care Team Providers Care Java Tech Lead Name Role Phone Yolanda Priest MD Primary Care Provider + King Orlando PharmD Unavailable [phone] Encounter Details Date Type Department Care Team (Late Contact Info) Description 02/22/2023 Orders Only [facility] MEDICINE [address] [place], [place] [phone] Alice Jennings LPN Social History Tobacco Use Types Packs/Day Years Used Date Smoking Tobacco: Never Smokeless Tobacco: Never Alcohol Use Standard Drinks/Week Comments Not Currently 0 (1 standard drink = 0.6 oz pur e alcohol) rare Depression Answer Date Recorded Patient Health Questionnaire-9 Score 7 11/08/2022 Depression Answer Date Recorded Patient Health Questionnaire-2 Score 2 11/08/2022 Comments Unknown Sex and Gender Information Value Date Recorded Sex Assigned at Female 05/28/2022 10:31 AM EDT Legal Sex Female 10:31 AM EDT Gender Identity Female 05/28/2022 10:31 AM EDT Sexual Orientation Straight 05/28/2022 10 :31 AM EDT documented as of this encounter Plan of Treatment Upcoming Encounters Date Type Department Care Team (Late Contact Info) Description 09/21/2024 3:30 PM EST Office Visit [facility] OPTOMETRY [address] [place], [place] [phone] Marek, Reyna, OD [address] [place], [place] [phone] documented as of this encounter Visit Diagnoses Not on filedocumented in this encounter Additional Health Concerns Assessment Noted Time PHQ-9 Depression Total Score: 7 11/09/19 23 10:16 AM EDT documented as of this encounter Care Teams Java Tech Lead Relationship Specialty Start Date End Date Yolanda Priest MD [address] [place] [address] PCP - General Family Medicine 01/10/17 King Orlando, Aditi [address] [place] [phone] Pharmacist Internal Medicine 10/02/23 documented as of this encounter
--- OUTSIDE RECORDS SUMMARY | 2024-09-18 14:56 | XMS_ITS | Encounter Summary ---
Author Organization [employer] Address [address] [facility] [address] [place] [address] Care Team Providers Care Local Flatbed Driver Name Role Phone Yolanda Priest MD Primary Care Provider + King Orlando PharmD Unavailable [phone] Reason for Visit * Reason Comments Med Refill Encounter Details Date Type Department Care Team (Late st Contact Info) Description 05/07/[address] [facility] DENT[facility] [address] [place], [place] [phone] Virgil Santoyo, STEVEN [address] [place], [place] [phone] Social History Tobacco Use Types Packs/Day Years Used Date Smoking Tobacco: Never Smokeless Tobacco: Never Alcohol Use Standard Drinks/Week Comments Not Currently 0 (1 standard drink = 0.6 oz pur e alcohol) rare Depression Answer Date Recorded Patient Health Questionnaire-9 Score 7 11/08/2022 Housing Stability Answer Date Recorded What is your housing situation today? I do not have housing (Staying with others, in a hotel, in a penitentiary, living outside on the street, on a beach, in a car, or in a park 05/05/[address] you li ve. Do you have problems with any of the following? None of the above 05/05/2023 Food Insecurity Answer Date Recorded Within the past 12 months, y ou worried that your food would run out before you got money to buy more: Never True 05/05/2023 Within the past 12 months,th e food you bought just didn't last and you didn't have enough money to get more: Never True 02/2023 Transportation Answer Date Recorded In the past 12 months, has l ack of transportation kept you from medical appts, meetings, work or from getting things needed for daily living? I am not sure 05/05/2023 Utilities Answer Date Recorded In the past 12 months, has t he electric, gas, oil or water company threatened to shut off services in your home? No 05/05/2023 Depression Answer Date Recorded Patient Health Questionnaire-2 Score 2 11/08/2022 Comments Unknown Sex and Gender Information Value Date Recorded Sex Assigned at Female 05/28/2022 10:31 AM EDT Legal Sex Female 10:31 AM EDT Gender Identity Female 05/28/2022 10:31 AM EDT Sexual Orientation Straight 05/28/2022 10 :31 AM EDT documented as of this encounter Miscellaneous Notes * Telephone Encounter - Virgil Santoyo DMD - 05/07/2023 2:19 PM EDT Approving, but needs appt for additional refills. documented in this encounter Plan of Treatment Upcoming Encounters Date Type Department Care Team (Late st Contact Info) Description 09/21/2024 3:30 PM EST Office Visit [facility] [address] [place] [address] Marek, Reyna, OD [address] [place] [address] documented as of this encounter Visit Diagnoses Not on filedocumented in this encounter Additional Health Concerns Assessment Noted Time PHQ-9 Depression Total Score: 7 11/09/19 23 10:16 AM EDT documented as of this encounter Care Teams Local Flatbed Driver Relationship Specialty Start Date End Date Yolanda Priest MD [address] [place] [address] PCP - General Family Medicine 01/10/17 King Orlando, DouglasD [address] [place] [address] Pharmacist Internal Medicine 10/02/23 documented as of this encounter
--- OUTSIDE RECORDS SUMMARY | 2024-09-18 14:56 | XMS_ITS | Encounter Summary ---
Author Organization [employer] Address [address] [facility] [address] [place] [address] Care Team Providers Care Professor Of Legal Studies Name Role Phone Yolanda Priest MD Primary Care Provider + King Orlando PharmD Unavailable [phone] Reason for Visit * Reason Onset Date Comments Call Back 03/01/2023 Encounter Details Date Type Department Care Team (Late st Contact Info) Description 03/01/2023 Telephone [facility] [address] [place], [place] [phone] Yolanda Priest MD [address] [place], [place] [phone] Call Back Social History Tobacco Use Types Packs/Day Years [...] encounter Miscellaneous Notes * Telephone Encounter - Miranda Kendall Vero - 03/01/2023 1:23 PM EDT Tc from [employer] with [employer] requesting to speak with a nurse in regards to a mutual pt. She informs is in regards to a medical release form for a physical that is needed, content writer offer to transferover but she prefers to speak with a nurse but at the end I transfer her over but she still wanted me to send message. Please contact pt at [phone] documented in this encounter Plan of Treatment Upcoming Encounters Date Type Department Care Team (Late st Contact Info) Description 09/21/2024 3:30 PM EST Office Visit [facility] OPT[facility] [address] [place] [address] Reyna Jara, OD [address] [place] [address] documented as of this encounter Visit Diagnoses Not on filedocumented in this encounter Additional Health Concerns Assessment Noted Time PHQ-9 Depression Total Score: 7 11/09/19 23 10:16 AM EDT documented as of this encounter Care Teams Professor Of Legal Studies Relationship Specialty Start Date End Date Yolanda Priest MD [address] [place] [address] PCP - General Family Medicine 01/10/17 King Orlando, DouglasD [address] [place] [address] Pharmacist Internal Medicine 10/02/23 documented as of this encounter
--- OUTSIDE RECORDS SUMMARY | 2024-09-18 14:57 | XMS_ITS | Clinical Summary ---
Author Organization [employer] Address [address] [facility] [facility] [address] [place] [address] Care Team Providers Care Postal Sorting Officer Name Role Phone Yolanda Priest MD Primary Care Provider + King Orlando PharmD Unavailable [phone] Allergies No known active allergies Medications melatonin 3 MG tablet TAKE 1 TO 2 TABLETS BY MOUTH AT BEDTIME NEEDED Active aspirin (Aspirin Adult Low Dose) 81 MG EC tabletIndications:Uncon trolled type 2 diabetes mellitus with hyperglycemia (CMS/HCC) Take 1 tablet by mouth daily 90 tablet 1 024 Active Lancets 33G miscIndications:Uncontr olled type 2 diabetes mellitus with hyperglycemia (CMS/HCC) Use to test blood sugar as needed for hypoglycemia (up to TID) 100 each 5 Active Blood Pressure Monitor kit Use as directed 3x/week 1 kit 024 Active lisinopril (Prinivil) 10 MG tabletIndications:Essen tial hypertension Take 1 tablet (10 mg) by mouth Once per day. 90 tablet 3 024 2024 Active rosuvastatin (Crestor) 40 MG tabletIndications:Uncon trolled type 2 diabetes mellitus with hyperglycemia (CMS/HCC) Take 1 tablet by mouth once daily 90 tablet 3 024 Active glucose blood (FreeStyle Precision Akash Test) test stripIndications:Uncont rolled type 2 diabetes mellitus with hyperglycemia (CMS/HCC) USE DIRECTED TO TEST BLOOD SUGAR UP TO THREE TIMES DAILY 50 strip 5 024 Active insulin pen needle (Pentips) 32G x 4 mm miscIndications:Uncontr olled type 2 diabetes mellitus with hyperglycemia (CMS/HCC) Use daily with insulin 100 each 3 024 Active metFORMIN (Glucophage) 1000 MG tabletIndications:Type 2 diabetes mellitus with other circulatory complication, with long-term current use of insulin (CMS/HCC) TAKE 1 TABLET BY MOUTH TWICE DAILY IN THE MORNING AND IN THE EVENING 60 tablet 6 024 Active busPIRone (Buspar) 15 MG tablet TAKE 1 TABLET BY MOUTH TWICE DAILY IN THE MORNING AND IN THE EVENING Active pantoprazole (ProtoNix) 40 MG EC tablet TAKE 1 TABLET BY MOUTH EVERY DAY 30 MINUTES BEFORE BREAKFAST Active famotidine (Pepcid) 20 MG tablet Take 20 mg by mouth at bedtime. 024 Active empagliflozin (Jardiance) 25 MGIndications:Uncontrol led type 2 diabetes mellitus with hyperglycemia (CMS/HCC) Take 1 tablet (25 mg) by mouth Once per day. 90 tablet 3 024 Active cyclobenzaprine (Flexeril) 10 MG tablet Take 1 tablet (10 mg) by mouth at bedtime for 10 days. 10 tablet 024 Active meclizine (Antivert) 12.5 MG tablet TAKE 1 TABLET ORALLY 3 TIMES A DAY NEEDED FOR DIZZINESS Active ergocalciferol (Vitamin D2) 1.25 MG (91859 UT) capsuleIndications:Pure hypercholesterolemia TAKE 1 CAPSULE BY MOUTH ONCE PER WEEK 12 capsule 1 Active glipiZIDE XL (Glucotrol XL) 10 MG 24 hr tabletIndications:Type 2 diabetes mellitus with chronic kidney disease, with long-term current use of insulin, unspecified CKD stage (CMS/HCC) Take 1 tablet (10 mg) by mouth Once per day. Do not crush, chew, or split. 30 tablet 11 024 2024 Active Continuous Glucose Sensor (FreeStyle Mitch 3 Plus Sensor) miscIndications:Type 2 diabetes mellitus with chronic kidney disease, with long-term current use of insulin, unspecified CKD stage (CMS/HCC) Apply 1 Device topically every 15 days. 2 each 5 025 Active Continuous Glucose Statistical Programmer (FreeStyle Mitch 3 Exline) deviceIndications:Type 2 diabetes mellitus with chronic kidney disease, with long-term current use of insulin, unspecified CKD stage (CMS/HCC) 1 Device Use as directed. Use to check BG as directed 1 each 025 Active insulin degludec (Tresiba) 100 UNIT/ML injectionIndications:Un controlled type 2 diabetes mellitus with hyperglycemia (CMS/HCC) Inject 16 units under the skin once daily 025 Active ezetimibe (Zetia) 10 MG tabletIndications:Type 2 diabetes mellitus with chronic kidney disease, with long-term current use of insulin, unspecified CKD stage (CMS/HCC) Take 1 tablet (10 mg) by mouth Once per day. 90 tablet 1 Active Active Problems Problem Noted Date Diagnosed Date fall08/27/2024 Encounter for cervical Pap smear with pelvic exa m 06/12/2024 Assessment & Plan (06/12/2024 10:18 AM EST): Pelvic exam today wnl FU pap smear results/HPV/STI testing and will call back PRN positive results or FU in 3 months Pt feels safe at home no concern for DV/STDs Counseled regarding STI prevention If today's pap smear/co testing is normal next one will be due in 3 years. Drug-induced constipation 01/10/2024 Assessment & Plan (01/10/2024 1:53 PM EDT): Sec to Ca supplement? DC Ca and use Tums, use Vit D weekly as well Periodontal disease 12/11/2023 Dental calculus 12/11/2023 Missing teeth, acquired 12/11/2023 Acute gingival inflammation 12/11/2023 Gingival bleeding 12/11/2023 Dysphagia as late effect of cerebrovascular acci dent (CVA) 07/16/2023 Assessment & Plan (01/10/2024 1:52 PM EDT): Most likely due to CVA, however given persistent vomiting and no other deficits (dysarthria significantly improved), I will refer to GI. Assessment & Plan (07/16/2023 12:31 PM EST): It could be related to CVA, r/o obstruction Order barium swallow and FU w/ me Enlarged thyroid 07/16/2023 Overview (11/26/2023): Thyroid US on 2022 showed homogenous enlargement of thyroid, c/w thyroiditis TFTs have been normal. Assessment & Plan (11/26/2023 1:24 PM EDT): - thyroid ultrasound was benign - check TSH yearly for 3 years or PRN Assessment & Plan (07/16/2023 12:32 PM EST): Order by US and FU w/ me in 1 m Housing instability due to imminent risk of home lessness 04/20/2023 Assessment & Plan (04/20/2023 2:19 PM EDT): Son and family will move out soon and they have leasing contract. Refer to [facility] to help her with rent applications and status of housing benefits. Osteopenia of lumbar spine 04/20/2023 Assessment & Plan (04/20/2023 2:03 PM EDT): Bone density 02/2023 reviewed. Continue Vit D supplementation x 3 more months Start Ca + Vit D low dose, repeat BMD on 02/2025 Dental abscess 04/15/2023 Dental caries 04/15/2023 Encounter for preventive health examination 01/27 Assessment & Plan (02/24/2024 2:11 PM EDT): Discussed with patient re increase fresh fruit and vegetable intake. Counseled re moderate exercise as tolerated, up to 20min/d Patient feels safe at home. PAP smear overdue, will schedule pap smear with me, she didn't show last year. Mammogram up to date, next one due October 2024 Bone density test: UTD, next one due on 02/2025 Eye exam up to date, next one due 06/2024 CRC : UTD, cologuard due on 2025 Lipids/FBS up to date, next one due October 2024 Vaccinations UTD. We'll fu for fall Izs. Dental visit UTD, fu with our dental DTaP for dentures/prosthesis Assessment & Plan (02/18/2023 5:17 PM EDT): Discussed with patient re increase fresh fruit and vegetable intake. Counseled re moderate exercise as tolerated, up to 20min/d Patient feels safe at home. PAP smear overdue, will schedule pap smear with me Mammogram up to date, next one due October 2023 Bone density test Overdue, TBO Eye exam up to date, next one due December 2023 CRC screen declined colonoscopy, will order Cologuard Lipids/FBS up to date, next one due October 2023 Vaccinations will get PCV20 and Shingrix in our pharmacy Dental visit I gave her information to schedule an appointment in our dental clinic. At high risk for osteoporosis 02/18/2023 Assessment & Plan (02/18/2023 5:18 PM EDT): Order bone density test Allergic contact dermatitis due to other agents 02/18/2023 Assessment & Plan (02/18/2023 5:18 PM EDT): on right knee use triamcinolone cream BID and FU with me COunseled regarding tight control of DM Vitamin D deficiency 12/06/2022 Assessment & Plan (01/10/2024 1:55 PM EDT): Restart Vit D x 6m Assessment & Plan (12/06/2022 10:42 AM EDT): Start vit d supplementation for 3 months encouraged sun exposure daily for at least 15 minutes Primary osteoarthritis of both knees 11/08/2022 Assessment & Plan (07/16/2023 12:34 PM EST): Reminder her to FU with orthopedics in July for a new steroid injection FU w/ me in 4 wks Assessment & Plan (06/14/2023 1:12 PM EST): On right knee, partial improving with steroid injections Take tylenol + ice to R knee x 2 days Call back orthopedics for further POC Assessment & Plan (04/20/2023 1:55 PM EDT): Didn't tolerate PT Order MRI and refer to orthopedics Counseled to come to acupuncture clinic Assessment & Plan (12/06/2022 10:42 AM EDT): Pt was referred to chiropractor instead of PT. we will call PT office to schedule an appointment, pt will call back if she has not received phone call for appointment by next week. Continue using knee brace and cane for ambulation use tylenol PRN Assessment & Plan (11/08/2022 10:54 AM EDT): Mostly in the right knee use tylenol PRN, ambulate with a cane and use knee brace when needed for support Refer to PT Casiano's cyst of knee, right 11/08/2022 Assessment & Plan (11/08/2022 10:54 AM EDT): See above. Viral upper respiratory tract infection 06/25/20 22 Uncontrolled type 2 diabetes mellitus with hyper glycemia 06/25/2022 Assessment & Plan (02/24/2024 2:13 PM EDT): Uncontrolled. A1c is improving. Increase Trulicity to 1.5mg/w, fu with [facility] clinic in 1w. Continue Tresiba and Metformin dame dose Counseled re more frequent low calorie/carb meals. Check fgstk 2x daily Encouraged physical activity as tolerated. FU in 3-4 months w nd, earlier with CDTM clinic. Assessment & Plan (01/10/2024 1:55 PM EDT): It seems to be improving. Continue Tresiba 40 U + Novolog tid ac meals Continue Jardiance 25mg/d, glipizide 10mg/d and metformin 1000 mg bid FU w [facility]TM clinic and w nd in 2m Assessment & Plan (11/26/2023 12:24 PM EDT): - pt non-compliant with Lantus, taking it at different times of the day, probably due to concern of hypoglycemia - I will switch Lantus to 40 units in the morning with breakfast - discontinue Farxgia and start Jardiance due to history of vaginitis, CDTM provider note is appreciated - continue Glipizide 10 mg BID for now - I will give her Novolog with sliding scale to use AC meals only during the weeks following steroid injections (she gets knee steroid injections) - discussed importance of dietary compliance, low carb load - small frequent infraction meals - f/u with [facility] program as scheduled and with me in 6 weeks Assessment & Plan (08/27/2023 2:18 PM EST): Slight improvement - Lab Results Component Value Date HGBA1C 9.7 (A) 08/27/2023 HGBA1C 10.3 (A) 06/14/2023 HGBA1C 12.7 (A) 02/18/2023 - Lab Results Component Value Date MICROALBUR 6.9 10/06/2020 CREATININE 1.16 05/23/2023 Extensive counseling for patient to be adherent to diabetic diet - Continue with same Lantus prescription, c/w metformin 1000mg BID, C/ glipizide 10mg BID, I added today Farxiga 5mg daily F/u with PCP Assessment & Plan (07/16/2023 12:31 PM EST): Increase lantus by 2 units /week up to 40 units per day, goal FBS 100 for now. No change in any medications Refer to [facility] clinic, will do PA for FreeStyle Mitch 2 due to Pt needing to use insulin more than 3 x /day Counseled re more frequent low calorie/carb meals. Encouraged physical activity as tolerated. FU in 6 wks Assessment & Plan (06/14/2023 1:11 PM EST): Most likely still uncontrolled, however due to hypoglycemia I will decrease Lantus to 35 units daily Cont Novolog AC meals + PO meds Fu 4 wks Assessment & Plan (04/20/2023 2:05 PM EDT): Non compliant with meds. No change on meds, continue Lantus 40U + Novolog prior to meals + Metformin + Glipizide w meals and fu with endocrinology next month I will fu w her in 6-8w Assessment & Plan (02/18/2023 5:20 PM EDT): Uncontrolled, she didn't take her DM medications today, she forgot Continue glipizide 10mg + metformin 1000 BID + lantus 40 units daily + Novolog sliding scale FU with endocrinology on 02/21 and FU with me in 3 months 8 units of humalog given today at the office Assessment & Plan (12/06/2022 10:44 AM EDT): Most likely still uncontrolled., pt will fu with endo at [facility] next week. pt to bring glucometer to pharmacy vs order new glucometer continue lantus 40 units + Humalog TID ac meals + po medications. FU with me in 3 months Assessment & Plan (11/08/2022 10:55 AM EDT): Uncontrolled. Increase lantus to 40 units, no change in other medications FU with me in 4 weeks. refer to [employer] and reminded pt to be complaint with appoitnments, call to rescheduled appointment if necessary Type 2 diabetes mellitus 06/25/2022 Rash and nonspecific skin eruption 06/25/2022 Chronic left shoulder pain 06/25/2022 Assessment & Plan (11/26/2023 12:18 PM EDT): - most likely tendinosis of the rotator cuff - refer to PT - take Tylenol PRN - f/u in 3 months Motor aphasia 06/25/2022 Assessment & Plan (02/18/2023 5:19 PM EDT): s/p CVA on 05/19, improving recommended to continue speech therapy exercises Assessment & Plan (11/08/2022 10:55 AM EDT): significantly improved, patient speaks full sentences Order labs Gastroesophageal reflux disease 06/25/2022 Essential hypertension 06/25/2022 Assessment & Plan (06/12/2024 10:23 AM EST): Controlled. Compliant w/meds Continue lisinopril. Counseled re low salt diet/increase moderate physical activity. Check home BP BIW and prn CP/BROOKS/TEMPLETON Non smoking patient. Assessment & Plan (11/26/2023 11:32 AM EDT): Controlled. Compliant w/meds Continue lisinopril 5 mg same dose Counseled re low salt diet/increase moderate physical activity. Check home BP BIW and prn CP/BROOKS/TEMPLETON Non smoking patient. F/u in 6 months Assessment & Plan (12/06/2022 10:43 AM EDT): BP is at goal. Continue lisinopril 5 mg. Counseled re low salt diet/increase moderate physical activity. Check home BP BIW and prn CP/BROOKS/TEMPLETON Non smoking patient. Assessment & Plan (11/08/2022 10:56 AM EDT): BP is at goal no change in medication Counseled re low salt diet/increase moderate physical activity. Check home BP BIW and prn CP/BROOKS/TEMPLETON Non smoking patient. Dysarthria 06/25/2022 COVID-19 06/25/2022 Tendinitis of right rotator cuff 06/25/2022 Closed fracture of metatarsal bone of left foot 06/25/2022 Adjustment disorder with depressed mood 06/25/20 22 Acute frontal sinusitis 06/25/2022 Hyperkalemia 12/19/2018 Assessment & Plan (02/24/2024 2:13 PM EDT): On recent labs, took Kayexalate. Repeat K today. Advised re low K diet. Recurrent major depression in partial remission 11/07/2018 Laryngitis 11/07/2018 Anxiety 02/18/2018 Acquired palmar and plantar hyperkeratosis 08/21 Hyperlipidemia 01/10/2017 Assessment & Plan (01/10/2024 1:57 PM EDT): Continue Crestor 40mg for now, LDL goal is 70. Stressed the importance of DM control, Repeat lipids on 05/2024 Assessment & Plan (12/06/2022 10:44 AM EDT): Pt switched to crestor 20 mg and is tolerating it well. Check lipids and LFTS in 3 months. We discussed re rx options. She wants to be more strict with life style modifications. Recommended moderate amount of exercise and increased consumption of fruit, vegetables, fish and high fiber foods. We discussed about avoiding consumption of highly saturated fats or trans fats. Cough 01/10/2017 Assessment & Plan (02/18/2023 5:19 PM EDT): residual after covid, improving use ProAir PRN Backache 01/10/2017 Assessment & Plan (06/12/2024 10:20 AM EST): Order XR of lumbar spine. Advised to use heat to affected area + Diclofenac Gel + Tylenol prn. Call back prn persistent of Sx more than 3 weeks, may need a referral to PT. Pt wants to have Covid Vaccine, she will get today at clinic. Resolved Problems Problem Noted Date Diagnosed Date Resolved Date Elevated blood pressure reading 04/23/2018 11/26/2023 Encounters Date Type Department Care Team Description 09/04/2024 Orders Only [facility] External Provider, [facility] 09/01/2024 Telephone [facility] [address] [place] [phone] Yolanda Priest MD Prior Authorization 09/01/2024 Telephone [facility] [address] [place] [phone] Yolanda Priest MD Med Refill 08/20/2024 Telephone [facility] [address] [place] [phone] Yolanda Priest MD Referral 08/12/2024 Telephone [facility] [address] [place] [address] [phone] Yolanda Priest MD telephone call 08/12/2024 Travel 08/03/2024 Refill [facility] [address] [place] [address] [phone] Yolanda Priest MD Uncontrolled type 2 diabetes mellitus with hyperglycemia ([facility]) 07/17/2024 Travel 07/03/2024 Telephone [facility] [address] [place] [address] Yolanda Priest MD Appointment Request 07/03/2024 Telephone [facility] [address] [place] [address] Yolanda Priest MD Results 07/01/2024 Telephone [facility] [address] [place] [address] Yolanda Priest MD Results 06/23/2024 Refill [facility] [address] [place] [address] Yolanda Priest MD Pure hypercholesterolemia 06/22/2024 9:00 AM EST Office Visit [facility] [address] [place] [address] Virgil Santoyo DMD from Last 3 Months Immunizations Name Administration Dates Next Due Influenza Injectable Quadriv alant Preservative Free IIV4 MDCK 04/22/2023 Influenza injectable quadriv alent IIV4 with preservative 04/15/2019,04/23/2018,04/25/2017 Influenza injectable quadriv alent preservative free 04/26/2022,04/19/2021,08/22/2020 Influenza, seasonal, injecta ble, preservative free 05/27/2024 Moderna Covid-19 Vaccine 12+ 12/01/2021,12/08/19 21,11/09/2020 Pfizer Covid-19 Vaccine 12+ Bivalent 06/29/2022 Pneumococcal Conjugate PCV 20 02/18/2023 Pneumococcal Polysaccharide PPSV23 06/24/2018 RSV Bivalent 10/02/2023 Tdap 08/21/2017 Zoster, Recombinant 04/22/2023,02/18/2023 Family History Medical History Relation Name Comments Glaucoma Father Prostate cancer Father Diabetes Mother Hyperlipidemia Mother Hypertension Mother Relation Name Status Comments Father Mother Social History Tobacco Use Types Packs/Day Years Used Date Smoking Tobacco: Never Passive Smoke Exposure: Never Smokeless Tobacco: Never Tobacco Cessation:Counseling Given: Not Answered Alcohol Use Standard Drinks/Week Comments Not Currently [...] with others, in a hotel, in a care home, living outside on the street, on [...] Orientation Straight 05/28/2022 10 :31 AM EDT Last Filed Vital Signs Vital Sign Reading Time Taken Comments Blood Pressure 128/62 08/12/2024 3:12 PM EST Pulse 94 08/12/2024 3:12 PM EST Temperature 36 ??C (96.8 ??F) 06/12/2024 9:43 AM EST Respiratory Rate 20 06/12/2024 9:43 AM EST Oxygen Saturation 98% 06/12/2024 9:43 AM EST Inhaled Oxygen Concentration - - Weight 62.3 kg (137 lb 6.4 oz) 06/12/2024 9:43 A M EST Height 162.6 cm (5' 4 ) 06/12/2024 9:43 AM EST Body Mass Index 23.58 06/12/2024 9:43 AM EST Plan of Treatment Upcoming Encounters Date Type Department Care Team (Late st Contact Info) Description 09/21/2024 3:30 PM EST Office Visit [facility] [address] [place] [address] Marek, Reyna, OD [address] [place] [address] Health Maintenance Due Date Last Done Comments CT Colonography 1960 Colonoscopy 1960 FIT 1960 FOBT 1960 Sigmoidoscopy 1960 HPV/Cotest 11/17/1989 COVID-19 Vaccine ( season) 2024 06/29/2022, 12/01/2021, 12/07/2020, Additional history exists Dental Oral Exam 05/22/2024 11/20/2023 Dental Prophylaxis 06/13/2024 12/11/2023 Depression Monitoring (PHQ-9) 08/26/2024 02/24/2024, 02/24/2024 Diabetes: Hemoglobin A1C 08/27/202405/27/2 024, 02/24/2024, 11/26/2023, Additional history exists Mammogram 2024 11/19/2023, 10/27, 11/14/2022, Additional history exists Dental X-Ray: Bitewings 11/20/2024 11/20/2023 SDOH Screening 11/25/2024 11/26/2023 Diabetes: Foot Exam 01/09/2025 01/10/2024, 01/10/2024, 01/10/2024, Additional history exists Eye Exam 02/05/2025 02/06/2024, 01/26, 02/06/2024, Additional history exists Lipid Panel 02/18/2025 02/19/2024, 05/0 09/2023, 11/22/2022, Additional history exists Alcohol/Substance Use Screening 02/23/2025 02/24/2024 Depression Screening 02/23/2025 02/24/2024, 02/24/20 Tobacco Screening 06/22/2025 06/22/2024 Colorectal Cancer Screening 03/05/2026 FIT DNA/Cologuard 03/05/2026 03/05/2023 Dental X-Ray: Full Mouth 11/20/2026 11/20/2023 Cervical Cancer Screening 06/12/2027 Pap Smear 06/12/2027 06/12/2024 DTaP/Tdap/Td Vaccines (2 - Td or Tdap) 08/21/2027 08/21/2017 Pneumococcal Vaccine: 50+ Years Completed 02/18/2023, 06/24/2018 Zoster Vaccines Completed 04/22/2023, 02/18/2023 HIV Screening Completed 05/23/2023, 02/20/2023 Hepatitis C Screening Completed 05/23/2023 RSV Patients and Patients Aged 60 years or older Completed 10/02/2023 Influenza Vaccine Completed 05/27/2024, , 04/26/2022, Additional history exists HIB Vaccines Aged Out No longer eligi ble based on patient's age to complete this topic HPV Vaccines Aged Out No longer eligi ble based on patient's age to complete this topic Hepatitis A Vaccines Aged Out No long er eligible based on patient's age to complete this topic Hepatitis B Vaccines Aged Out No long er eligible based on patient's age to complete this topic IPV Vaccines Aged Out No longer eligi ble based on patient's age to complete this topic Meningococcal Vaccine Aged Out No nikos jewel eligible based on patient's age to complete this topic RSV under 20 months Aged Out No longe r eligible based on patient's age to complete this topic Rotavirus Vaccines Aged Out No longer eligible based on patient's age to complete this topic Goals Goal Patient Goal Type Associated Problems Recent Progress Patient-Stated? Author Blood Pressure < 140/90 Blood Pressure 128/62(2024 3:12 PM EST) No King Orlando, Aditi Hemoglobin A1c < 7 Result Component 8.8( 3:46 PM EDT) No King Orlando PharmD Procedures Procedure Name Priority Date/Time Associated Diagnosis Comments FL UPPER GI W BARIUM SWALLOW Routine 09/04/2024 7:50 AM EST CASE PRESENTATION, DETAILED AND EXTENSIVE TREATMENT PLANNING Routine 06/22/2024 9:00 AM EST 18,19,20,21,28,29,30,3 1 MANDIBULAR PARTIAL DENTURE - RESIN BASE (INCLUDING, RETENTIVE/CLASPING MATERIALS, RESTS, AND TEETH) Routine 06/22/2024 9:00 AM EST 2,4,6,7,8,9,10,11,14,1 5 MAXILLARY PARTIAL DENTURE - RESIN BASE (INCLUDING, RETENTIVE/CLASPING MATERIALS, RESTS, AND TEETH) Routine 06/22/2024 9:00 AM EST PAP SMEAR Routine 06/12/2024 10:17 AM EST Encounter for cervical Pap smear with pelvic exam POCT GLYCATED HEMOGLOBIN, TOTAL Routine 05/27/2024 3:46 PM EDT Type 2 diabetes mellitus with chronic kidney disease, with long-term current use of insulin, unspecified CKD stage (CMS/HCC) LIPID PANEL, STANDARD Routine 02/19/2024 9:37 AM EDT PROPHYLAXIS - ADULT Routine 12/11/2023 1 0:00 AM EDT Periodontal disease Dental calculus Missing teeth, acquired INTRAORAL - COMPLETE SERIES OF RADIOGRAPHIC IMAGES Routine 11/20/2023 3:00 PM EDT COMPREHENSIVE ORAL EVALUATION - NEW OR ESTABLISHED PATIENT Routine 11/20/2023 3:00 PM EDT BI MAMMOGRAM SCREENING TOMOSYNTHESIS BILATERAL Routine 11/19/2023 2:27 PM EDT HEPATITIS PANEL, GENERAL Routine 05/23/2023 2:35 PM EDT Encounter for preventive health examination HIV ANTIBODY/ANTIGEN ([place] DPH) Routine 05/23/2023 2:35 PM EDT LAB COLOGUARD?? COLON CANCER SCREEN Routine 03/05/2023 2:15 PM EDT from Last 3 Months or Most Recently Relevant to Health Maintenance Results * FL Upper GI w/Barium Swallow (09/04/2024 7:50 AM EST) Anatomical Region Laterality Modality Body Radiographic Kalyani ging 09/04/2024 7:50 AM EST Narrative 09/04/2024 5:00 PM EST ? [facility] ?[address] ?[place] [address] ? Fluoroscopy Report ? Signed ? Patient: Alice Amin ?MR#: [id number] ?? [id number] ? : 1960 ?Acct:[id number] ? Age/Sex: 63 / F ?ADM Date: 09/04/24 ? Loc: HO.XRAY ? Attending Dr: Emmy AGUILAR ? Ordering Physician: Emmy Clark ?? Date of Service: 09/04/24 ?? Procedure(s): FL upper GI w Ba Swallow ?? Accession Number(s): [id number] ? cc: Yolanda Priest MD; Emmy Clark [...] ??09/04/2024 04:57 PM EST RP ?? Workstation: [id number] ? Dictated By: ?Balaji Patel ? Signed By: ?<Electronically signed by Balaji Patel in [place]> ? 09/04/24 1657 ?<Electronically signed by Jian Hull MD in OV> ? 09/04/24 1700 ? DD/ [id number] ? TD/TT: 09/04/24 0813 ? [employer]: ? Procedure Note Angeline Beaver - 09/04/2024 73 [address] [address] Fluoroscopy Report Signed Patient: Alice Amin MMR#: [id number] : 1960Acct:[id number] Age/Sex: 63 / FADM Date: 09/04/24 Loc: HO.XRAY Attending Dr: Emmy Clark [facility] Ordering Physician: Emmy Clark [facility] Date of Service: 09/04/24 Procedure(s): FL upper GI w Ba Swallow Accession Number(s): [id number] cc: Yolanda Priest MD; Emmy Clark [facility] EXAMINATION: XR FLUOROSCOPY UPPER GI WITH AIR [...] proximal jejunum. This procedure was performed by Balaji Patel PA-C, and supervised by Dr. Hull Electronically signed by: Jian Hull MD 09/04/2024 04:57 PM EST RP Dictated By: Balaji Patel Signed By: <Electronically signed by Balaji Patel in OV> 09/04/24 1657 <Electronically signed by Jian Hull MD in OV> 09/04/24 1700 DD/ 0750 TD/TT: 09/04/24 0813 Die Repairer Forging: [facility] External Provider IMG FLU OROSCOPY PROCEDURES Final Result * Pap Smear (06/12/2024 10:17 AM EST) Swab 06/12/2024 10:1 7 AM EST 06/12/2024 1:50 PM EST [facility] - 07/01/2024 7:48 AM EST ----- ------- Name: Alice Amin ? Age/Sex: 63/F ? : 1960 Unit#: [id number] ?? Attend Dr: Yolanda Priest MD ?Re06/12/24 ?Status: DEP REF ? Location: .[facility] ? Disch: ? ----- ------- SPEC : [id number] ?RECD: 06/12/24 ? STATUS: ??SOUT ? REQ NUM: [id number] ? ANTONIETA: 06/12/247 ? SUBM DR: Yloanda Priest MD ? ENTERED: ??06/12/24 ?SP TYPE: Pap Smr ?OTHR : ? ORDERED: ??Pap Smear ? Interpretation ?? Satisfactory for evaluation. ?? Negative for intraepithelial lesion or malignancy. ?? Atrophic. ?? Scant cellularity. ? HPV High Risk: ??Negative ? HPV Genotyping 16: ??Negative ?? HPV Genotyping 18: ??Negative ?Clinical Information LMP: Unknown date Previous PAP test: Five years ago, Unknown findings ? Material Received ?? ThinPrep-Cervical ----- ------- Signed (signature on file) KATRIN Head ([facility]) 07/01/24 0748 ? ----- ------- ? END OF REPORT ? Yolanda Priest MD LAB CYTOLOGY ORDERABLES Final Result [facility] [address] [place] [phone] * (ABNORMAL) POCT HGB A1C (05/27/2024 3:46 PM EDT) [facility] Hemoglobin A1C 8.8(A) 4.0 - 6.0 % QC Media Lot # [id number] Lot# Expiration Date [id number] Blood 05/27/2024 3:46 PM EDT Yolanda Priest MD POINT OF CARE TEST ENTER /EDIT ORDERABLES Final Result * (ABNORMAL) Lipid Panel, Standard (02/19/2024 9:37 AM EDT) [facility] Triglycerides 96 <150 mg/dL [facility] Comment:Desirable Triglyceri de: less than 150 mg/dLBorderline High Triglyceride 150-199 mg/dLHigh Triglyceride: 200-499 mg/dLVery High Triglyceride: greater than or equal to 5OO mg/dL Cholesterol 178 <200 mg/dL [facility] Comment:Desirable Cholestero l: less than 200 mg/dLBorderline High Cholesterol: 200-239 mg/dLHigh Cholesterol: greater than 239 mg/dL LDL Cholesterol Calculated 110(H) <100 mg/dL [facility] Comment:Desirable LDL: less than 100 mg/dLNear Optimal/Above Optimal LDL: 110- 129 mg/dLBorderline High LDL: 130-159 mg/dLHigh LDL: 160-189 mg/dLVery High LDL: greater than or equal to 190 mg/dL HDL Cholesterol 49 >40 mg/dL [facility] Comment:Desirable HDL: great er than 40 mg/dL Note: This HDL assay may give artificially low results in patients with liver disease. 02/19/2024 9:37 AM EDT 02/19/2024 11:44 AM EDT Yolanda Priest MD LAB BLOOD ORDERABLES Fin al Result [facility] [address] [place] [address] [phone] * BI Mammogram Screening Tomosynthesis Bilateral (11/19/2023 2:27 PM EDT) Anatomical Region Laterality Modality Breast Bilateral Mammography 11/19/2023 2:27 PM EDT Narrative 12/05/2023 12:56 PM EDT ? [facility] ? [address] [facility] ?[place] [address] ? Mammography Report ? Signed ? Patient: Carolyn Whitmore,Alice M ?MR#: [id number] ?? [id number] ? : 1960 ?Acct:[id number] ? Age/Sex: 63 / F ?ADM Date: 04/23/24 ? Loc: HO.MAMMO ? Attending Dr: Yolanda Priest MD ? Ordering Physician: Yolanda Priest MD ?Results: 2Be ?? nign Findings ? Date of Service: 11/19/23 ?Follow Up: 1 Year From Orig ?? inal Mammogram ? Procedure(s): MM tomosynthesis screening BI ?? Accession Number(s): [id number] ? cc: Yolanda Priest MD ? EXAMINATION: ?? MM SCREENING DIGITAL BREAST TOMOSYNTHESIS, BILATERAL ? CLINICAL INFORMATION: ? Screening. Asymptomatic. ? COMPARISON: ?? Mammography: 11/14/2022, 11/08/2021, 01/30/2018, and 01/10/2017. ? TECHNIQUE: ?? Digital breast tomosynthesis is performed in both the craniocaudal and ?? mediolateral oblique views along with computer-aided detection (CAD). ?? Synthesized 2D images are generated from the tomosynthesis. ? FINDINGS: ?? There are scattered areas of fibroglandular density (ACR BI-RADS breast ?? composition Category b). ? There are vascular calcifications bilaterally. There are no suspicious ?? masses, suspicious grouped calcifications, or areas of architectural ?? distortion in either breast. The parenchymal pattern is stable from ?? prior exams. No skin or axillary abnormalities. ? MM/MM tomosynthesis screening BI ?? IMPRESSION: ?? No mammographic evidence of malignancy. ? ASSESSMENT: ? BI-RADS BI-RADS 2 - Benign Findings ? RECOMMENDATION: ?? Routine annual mammography screening. ? 1 year F/U ? This examination should not preclude the clinical evaluation of a ?? suspicious palpable abnormality. ? This patient's information was entered into a reminder system with a ?? target due date for their next mammogram. ? Dictated By: ?Jian Hull MD ? Signed By: ?<Electronically signed by Jian Hull MD in OV> ?12/05/232 ? DD/ ? TD/TT: ? Die Repairer Forging: ? Procedure Note Donotuseinterpreter, Image - 12/05/2023 [facility] [address] [place], [place] [address] Mammography Report Signed Patient: Alice Amin MMR#: [id number] : 1960Acct:[id number] Age/Sex: 63 / FADM Date: 11/19/23 Loc: HO.MAMMO Attending Dr: Yolanda Priest MD Ordering Physician: Yolanda Priest MDResults: 2Be nign Findings Date of Service: 11/19/23Follow Up: 1 Year From Orig inal Mammogram Procedure(s): MM tomosynthesis screening BI Accession Number(s): [id number] cc: Yolanda Priest MD EXAMINATION: MM SCREENING DIGITAL BREAST TOMOSYNTHESIS, BILATERAL CLINICAL INFORMATION: Screening. Asymptomatic. COMPARISON: Mammography: 11/14/2022, 11/08/2021, 01/30/2018, and 01/10/2017. TECHNIQUE: Digital breast tomosynthesis is performed in both the craniocaudal and mediolateral oblique views along with computer-aided detection (CAD). Synthesized 2D images are generated from the tomosynthesis. FINDINGS: There are scattered areas of fibroglandular density (ACR BI-RADS breast composition Category b). There are vascular calcifications bilaterally. There are no suspicious masses, suspicious grouped calcifications, or areas of architectural distortion in either breast. The parenchymal pattern is stable from prior exams. No skin or axillary abnormalities. MM/MM tomosynthesis screening BI IMPRESSION: No mammographic evidence of malignancy. ASSESSMENT: BI-RADS BI-RADS 2 - Benign Findings RECOMMENDATION: Routine annual mammography screening. 1 year F/U This examination should not preclude the clinical evaluation of a suspicious palpable abnormality. This patient's information was entered into a reminder system with a target due date for their next mammogram. Dictated By: Jian Hull MD Signed By: <Electronically signed by Jian Hull MD in OV> 12/05/23 1252 DD/ 1427 TD/TT: Die Repairer Forging: Yolanda Priest MD IMG BI PROCEDURES Final Result * HIV Ab/Ag ([facility]) (05/23/2023 2:35 PM EDT) HIV AB/AG Nonreactive Nonreactive [facility] Comment:HIV-1 p24 Ag and/or HIV-1/HIV-2 Ab not detected.A test result that is nonreactive does not exclude thepossibility of exposure to or infection with HIV-1 and/orHIV-2. Nonreactive results in this assay for individualswith prior exposure to HIV-1 and/or HIV-2 may be due toantigen and antibody levels that are below the limit ofdetection of this assay.The ZedmonifamPlus HIV Ag/Ab Combo assay result andsupplemental assay results should be interpreted inconjunction with the patient's clinical presentation,history and other laboratory results. If the results areinconsistent with clinical evidence, additional testing issuggested to confirm the result. 05/23/2023 2:35 PM EDT 05/23/2023 4:01 PM EDT us Yolanda Priest MD LAB BLOOD ORDERABLES Fin al Result [facility] [address] [place] [phone] * Hepatitis Panel, General (05/23/2023 2:35 PM EDT) Hepatitis A IgM Nonreactive Nonreactive [facility] Comment:IgM antibodies to BROOKS V not detected; does not exclude earlyacute or recovered HAV infection. ~Hepatitis B Surface Antibody NONREACTIVE Nonreactive [facility] Comment:Nonreactive: < 8.00 mIU/mL Hepatitis B Core Antibody Nonreactive Nonreactive [facility] Hepatitis C Antibody Nonreactive Nonreactive [facility] Comment:Antibodies to HCV no t detected; does not exclude early acuteHCV infection. Hepatitis B Surface Ag Negative Negative [facility] Blood 05/23/2023 2:35 PM EDT 05/23/2023 4:01 PM EDT us Yolanda Priest MD LAB BLOOD ORDERABLES Fin al Result [facility] [address] [place] [address] [phone] * Cologuard?? colon cancer screening (03/05/2023 2:15 PM EDT) Cologuard Cancer Screen Negative [facility] (CLIA #:[id number]) Stool Anal structure / Unknown 03/05/2023 2:15 PM EDT us Yolanda Priest MD LAB MOLECULAR DIAGNOSTIC S ORDERABLES Final Result [facility] (CLIA #:[id number]) [place] [address], from Last 3 Months or Most Recently Relevant to Health Maintenance Insurance [facility] - [facility] Care Teams Postal Sorting Officer Relationship Specialty Start Date End Date Yolanda Priest MD [address] [place] [address] PCP - General Family Medicine 01/10/17 King Orlando, Aditi [address] [place], [place] Pharmacist Internal Medicine 10/02/23
--- OUTSIDE RECORDS SUMMARY | 2024-09-18 14:57 | XMS_ITS | Encounter Summary ---
Author Organization [employer] Address [address] [facility] [address] [place] [address] Care Team Providers Care Forensic Science Examiner Name Role Phone Yolanda Upton MD Primary Care Provider + King Orlando PharmD Unavailable Reason for Referral * Consultation (Routine) - Closed Specialty Diagnoses / Procedures Referred By Contac t Referred To Contact Physical Therapy Diagnoses Chronic low back pain, unspecified back pain laterality, unspecified whether sciatica present Fall, sequela Yolanda Upton MD [address] [place] [address] Phone: tel: fax: [facility] Physical Therapy [address] [place] [address] Phone: tel: fax: Referral ID Status Reason Start Date Expiration Date V isits Requested Visits Authorized [id number] Closed Specialty Services Required 08/27/2024 08/27/2025 1 1 Reason for Visit * Reason Onset Date Comments Referral 08/20/2024 Encounter Details Date Type Department Care Team (Late st Contact Info) Description 08/20/2024 Telephone [facility] [address] [place], [place] [phone] Yolanda Upton MD [address] [place], [place] [phone] Referral Social History Tobacco Use Types Packs/Day Years [...] with others, in a hotel, in a mcc, living outside on the street, on a [...] as of this encounter Miscellaneous Notes * Addendum Note - Yolanda Upton MD - 08/27/2024 3:06 PM ESTAddended by: YOLANDA UPTON on: 08/27/2024 03:06 PM Modules accepted: Orders * Telephone Encounter - Yolanda Upton MD - 08/27/2024 3:02 PM EST Referral to PT sent re OV on 06/12/24. Please refer to [address] [place] [address] Chiropractic & Rehabilitation, per patient request, please contact patient with info * Telephone Encounter - Teresa Saldaña RN - 08/27/2024 2:18 PM EST Patient presented to the red team in regards to below. Patient reports she is requesting the PT referral due to the fall discussed at the 06/12/[address] referral as requested if agreeable. Thank you! * Telephone Encounter - Teresa Saldaña RN - 08/21/2024 9:46 AM EST TC placed to patient [phone] in regards to below message to inquire further on fall however patient did not answer, RN left requesting CB to red team nurses. Patient to f/u PRN. * Telephone Encounter - Yolanda Upton MD - 08/20/2024 4:32 PM EST Re PT ref, yes, she can be referred to [address] [place] [address] Chiropractic &Rehabilitation. Please note that we have not seen her after the incident (last OV was on 06/12/24). Please call patient and see if she needs to be seen, she had fell at the mall prior to 06[place]12 and it is documented in the chart, Im not sure if she had a new fall. * Telephone Encounter - Di Tay RN - 08/20/2024 10:33 AM EST TC placed to pt via BLS interpreter for the deaf (Buddhism ID#[id number]) regarding referral request. Got disconnected with first interpreter for the deaf. Second call placed via BLS interpreting service. Pt states her chiropractor did exams and they state she needs physical therapy which is why she is requesting the referral. Pt states she fell on 06/21/24 and hurt her back which is why she has been seeing a chiropractor butnow needs physical therapy referral per her chiropractor. Upon provider review, pt requesting referral be sent to Address: [address] [place] [address] Facility Name: [facility]. Message sent to provider to review and advise. * Telephone Encounter - Jhon Coelho - 08/20/2024 10:06 AM EST TC from pt requesting new referral : Address: [address] [place] [address] Facility Name: [facility] Type of Specialist: Chiropractic DX: Fall Pt states she left a card with pcp to be referred but has not received any update. If any questions you can contact pt at [phone]. (Yi Speaker) documented in this encounter Plan of Treatment Upcoming Encounters Date Type Department Care Team (Late st Contact Info) Description 09/21/2024 3:30 PM EST Office Visit [facility] [address] [place] [address] Reyna Jara, OD [address] [place] [address] Scheduled Referrals Name Type Priority Associated Diagnoses Orde r Schedule Referral to Physical Therapy Outpatient Referral Routine Chronic low back pain, unspecified back pain laterality, unspecified whether sciatica present Fall, sequela Expected: 08/27/2024 (Approximate), Expires: 08/27/2025 documented as of this encounter Goals Goal Patient Goal Type Associated Problems Recent Progress Patient-Stated? Author Blood Pressure < 140/90 Blood Pressure 128/62(2024 3:12 PM EST) No King Orlando PharmD Hemoglobin A1c < 7 Result Component 8.8( 3:46 PM EDT) No King Orlando PharmD documented as of this encounter Visit Diagnoses Diagnosis Chronic low back pain, unspecified back pain laterality, unspecified whether sciatica present- Primary Fall, sequela documented in this encounter Additional Health Concerns Assessment Noted Time PHQ-9 Depression Total Score: 13 024 1:39 PM EDT documented as of this encounter Care Teams Forensic Science Examiner Relationship Specialty Start Date End Date Yolanda Upton MD [address] [place] [address] PCP - General Family Medicine 01/10/17 King Orlando PharmD [address] [place] [address] Pharmacist Internal Medicine 10/02/23 documented as of this encounter
--- OUTSIDE RECORDS SUMMARY | 2024-09-18 14:57 | XMS_ITS | Encounter Summary ---
Author Organization [employer] Address [address] [facility] 7t [place] [address] Care Team Providers Care Minilab Operator Name Role Phone Yolanda Priest MD Primary Care Provider + King Orlando PharmD Unavailable [phone] Reason for Visit * Reason Onset Date Comments Appointment Request 07/03/2024 Encounter Details Date Type Department Care Team (Late st Contact Info) Description 07/03/2024 Telephone [facility] [address] [place], [place] [phone] Yolanda Priest MD [address] [place], [place] [phone] Appointment Request Social History Tobacco Use Types Packs/Day Years [...] with others, in a hotel, in a long-term, living outside on the street, on a [...] encounter Miscellaneous Notes * Telephone Encounter - Jhon Coelho - 07/03/2024 8:39 AM EST Tc from pt requesting to reschedule appt with King from 06/24. Please contact pt at [phone]. (Citizen Of [place] Speaker) documented in this encounter Plan of Treatment Upcoming Encounters Date Type Department Care Team (Late st Contact Info) Description 09/21/2024 3:30 PM EST Office Visit [facility] OPTOMETRY [address] [place] [address] Reyna Jara, OD [address] [place] [address] documented as of this encounter Goals Goal Patient Goal Type Associated Problems Recent Progress Patient-Stated? Author Blood Pressure < 140/90 Blood Pressure 128/62(2024 3:12 PM EST) No Orlando, King, PharmD Hemoglobin A1c < 7 Result Component 8.8( 4 3:46 PM EDT) No King Orlando PharmD documented as of this encounter Visit Diagnoses Not on filedocumented in this encounter Additional Health Concerns Assessment Noted Time PHQ-9 Depression Total Score: 13 024 1:39 PM EDT documented as of this encounter Care Teams Minilab Operator Relationship Specialty Start Date End Date Yolanda Priest MD [address] [place] [phone] PCP - General Family Medicine 01/10/17 King Orlando PharmD [address] [place] [address] Pharmacist Internal Medicine 10/02/23 documented as of this encounter
--- OUTSIDE RECORDS SUMMARY | 2024-09-18 14:57 | XMS_ITS | Encounter Summary ---
Author Organization [employer] Address [address] [facility] 7t [place] [address] Care Team Providers Care Confidential Investigator Name Role Phone Yolanda Priest MD Primary Care Provider + King Orlando PharmD Unavailable Encounter Details Date Type Department Care Team (Late st Contact Info) Description 11/27/2022 Orders Only [facility] [address] [place], [place] [phone] Yolanda Priest MD [address] [place], [place] [phone] Uncontrolled type 2 diabetes mellitus with hyperglycemia (CMS/HCC) (Primary Dx) Social History Tobacco Use Types Packs/Day Years Used Date Smoking Tobacco: Never Smokeless Tobacco: Never Alcohol Use Standard Drinks/Week Comments Never 0 (1 standard drink = 0.6 oz pur e alcohol) Depression Answer Date Recorded Patient Health Questionnaire-9 Score 7 11/08/2022 Depression Answer Date Recorded Patient Health Questionnaire-2 Score 2 11/08/2022 Comments Unknown Sex and Gender Information Value Date Recorded Sex Assigned at Female 05/28/2022 10:31 AM EDT Legal Sex Female 10:31 AM EDT Gender Identity Female 05/28/2022 10:31 AM EDT Sexual Orientation Straight 05/28/2022 10 :31 AM EDT COVID-19 Exposure Response Date Recorded In the last 10 days, have yo u been in contact with someone who was confirmed or suspected to have Coronavirus/COVID-19? No / Unsure 11/08/2022 9:58 AM EDT documented as of this encounter Plan of Treatment Upcoming Encounters Date Type Department Care Team (Late st Contact Info) Description 09/21/2024 3:30 PM EST Office Visit [facility] OPTOMETRY [address] [place] [address] Reyna Jara, OD [address] [place] [address] documented as of this encounter Visit Diagnoses Diagnosis Uncontrolled type 2 diabetes mellitus with hyperglycemia (CMS/[facility])- Primary documented in this encounter Additional Health Concerns Assessment Noted Time PHQ-9 Depression Total Score: 7 11/09/19 23 10:16 AM EDT documented as of this encounter Care Teams Confidential Investigator Relationship Specialty Start Date End Date Yolanda Priest MD [address] [place] [address] PCP - General Family Medicine 01/10/17 King Orlando, Aditi [address] [place] [address] Pharmacist Internal Medicine 10/02/23 documented as of this encounter
--- OUTSIDE RECORDS SUMMARY | 2024-09-18 14:57 | XMS_ITS | Encounter Summary ---
Author Organization [employer] Address [address] [place] [address] 7t [place] [address] Care Team Providers Care Activities Concierge Name Role Phone Yolanda Priest MD Primary Care Provider + King Orlando PharmD Unavailable [phone] Reason for Visit * Reason Onset Date Comments Prior Authorization 09/01/2024 Encounter Details Date Type Department Care Team (Late st Contact Info) Description 09/01/2024 Telephone [facility] [address] [place], [place] [phone] Yolanda Preist MD [address] [place], [place] [phone] Prior Authorization Social History Tobacco Use Types Packs/Day Years [...] with others, in a hotel, in a fdc, living outside on the street, on a [...] encounter Miscellaneous Notes * Telephone Encounter - King Orlando PharmD - 09/04/2024 2:00 PM EST PA resent to updated CCA PA processor 09/04/2024 by pharmacist. Freestlyle Mitch 2 sensor PA now . Opportunity taken to upgrade patients system to Mitch 3 plus. Patient picked up Mitch 3 reader from [facility] pharmacy 08/14/2024. * Telephone Encounter - Dez Porter - 09/01/2024 9:12 AM EST PA request for Continuous Glucose Sensor (FreeStyle Mitch 3 Plus Sensor) [facility]. documented in this encounter Plan of Treatment Upcoming Encounters Date Type Department Care Team (Late st Contact Info) Description 09/21/2024 3:30 PM EST Office Visit [facility] OPTOMETRY [address] [place] [address] Marek Reyna, OD [address] [place] [address] documented as of this encounter Goals Goal [...] Noted Time PHQ-9 Depression Total Score: 13 02/23/ 024 1:39 PM EDT documented as of this encounter Care Teams Activities Concierge Relationship Specialty Start Date End Date Yolanda Priest MD [address] [place] [address] PCP - General Family Medicine 01/10/17 King Orlando PharmD [address] [place] [address] Pharmacist Internal Medicine 10/02/23 documented as of this encounter
--- OUTSIDE RECORDS SUMMARY | 2024-09-18 14:57 | XMS_ITS | Encounter Summary ---
Author Organization [employer] Address [address] [place] [address] 7t [place] [address] Care Team Providers Care Balancer Scale Name Role Phone Yolanda Priest MD Primary Care Provider + King Orlando PharmD Unavailable [phone] Reason for Visit * Reason Onset Date Comments Med Refill 09/01/2024 Encounter Details Date Type Department Care Team (Late st Contact Info) Description 09/01/2024 Telephone [facility] MEDICINE [address] [place], [place] [phone] Yolanda Priest MD [address] [place], [place] [phone] Med Refill Social History Tobacco Use Types Packs/Day Years [...] encounter Miscellaneous Notes * Telephone Encounter - Mattie Gonzalez LPN - 09/01/2024 9:33 AM EST Medication sent to [facility] Pharmacy 07/17/24 #30 with 11 refills. * Telephone Encounter - Dez Porter - 09/01/2024 8:55 AM EST TC from pt requesting medication refill. Medications needing refill : Continuous Glucose Sensor (FreeStyle Mitch 3 Plus Sensor) [facility] glipiZIDE XL (Glucotrol XL) 10 MG 24 hr tablet To be sent to: [facility] - [place], [place] - [address] documented in this encounter Plan of Treatment Upcoming Encounters Date Type Department Care Team (Late st Contact Info) Description 09/21/2024 3:30 PM EST Office Visit [facility] OPTOMETRY [address] [place], [place] [phone] Reyna Jara, OD [address] [place] [address] documented as of this encounter Goals Goal [...] documented as of this encounter Care Teams Balancer Scale Relationship Specialty Start Date End Date Yolanda Priest MD [address] [place] [address] PCP - General Family Medicine 01/10/17 King Orlando PharmD [address] [place] [address] Pharmacist Internal Medicine 10/02/23 documented as of this encounter
== END 2024-09-18 17:26 | disposition home or self-care (01) ==
PROVIDERS: Visit Provider Nurse Practitioner Family
DX: K21.9 Gastro-esophageal reflux disease without esophagitis (principal); R13.14 Dysphagia, pharyngoesophageal phase; K59.01 Slow transit constipation; Z86.19 Personal history of other infectious and parasitic diseases
CPT/HCPCS: 99213; G2211

== ENCOUNTER → 2024-09-18 14:38 | Outpatient (BNVA) | payer OTHER, SELFPAY | PROVIDERS: Visit Provider Nurse Practitioner Family | DX: K21.9 Gastro-esophageal reflux disease without esophagitis (principal); K59.01 Slow transit constipation; R13.14 Dysphagia, pharyngoesophageal phase; R10.13 Epigastric pain; R14.0 Abdominal distension (gaseous); Z86.19 Personal history of other infectious and parasitic diseases | CPT/HCPCS: 99212 ==

== ENCOUNTER 2024-10-05 07:56 | Outpatient (AMB) | payer OTHER, SELFPAY ==
--- NOTE | 2024-10-05 08:30 | AM.OFFVISNUR ---
Intake Visit Reasons: H. Pylori Test Allergies No Known Allergies [No Known Allergies*] Allergy (Verified 09/18/24 14:52) Nursing Note Patient presents for collection of H Pylori breath test. Patient has been fasting for 1 hour (nothing to eat, drink, no chewing gum or smoking) has not taken any antacid medication for at least 2 weeks and has no allergies to artificial sweeteners.?? Assessment & Plan Assessment & Plan (1) GERD (gastroesophageal reflux disease): Code(s): K21.9 - Gastro-esophageal reflux disease without esophagitis Plan Patient presents for collection of H Pylori breath test. Patient has been fasting for 1 hour (nothing to eat, drink, no chewing gum or smoking) has not taken any antacid medication for at least 2 weeks and has no allergies to artificial sweeteners.???This test checks for an overgrowth of bacteria in your stomach. We all have bacteria but some may have more than others. It is treatable. if the test comes back negative there is nothing else to do. If the test result is positive we will treat you with 2 antibiotics and a medication to decrease the acid in your stomach (PPI) for 2 weeks. Two weeks after you have completed the treatment we will retest you to make sure the overgrowth has resolved. Patient Instructions: Process for specimen collection and reason for testing was explained to the patient. Specimen collection. Patient instructed to take a deep breath and then exhale into the blue bag, filling it up as much as possible. Patient instructed to drink a mixture of water and the artificial sweetener with a straw. A 15 minute wait period was observed. Patient instructed to take a deep breath and then exhale into the pink bag, filling it up as much as possible.?? Coding Level of Care Code Established Pt Est Pt Level 1 (40031) Patient Type Established Medical Decision Making Straight Forward Diagnoses GERD (gastroesophageal reflux disease) K21.9
== END 2024-10-05 08:45 | disposition home or self-care (01) ==
PROVIDERS: Visit Provider Nurse Practitioner Family
DX: K21.9 Gastro-esophageal reflux disease without esophagitis (principal)

== ENCOUNTER 2024-10-05 07:56 | Outpatient (REF) | payer OTHER, SELFPAY ==
[2024-10-06 13:51] LABS: H Pylori Breath Test Positive (Negative)
== END 2024-10-05 07:57 | disposition home or self-care (01) ==
LOC: HO.LNP 07:56
PROVIDERS: Visit Provider Nurse Practitioner Family
DX: K21.9 Gastro-esophageal reflux disease without esophagitis (principal)
CPT/HCPCS: 83013; 99211

== ENCOUNTER 2024-10-20 13:53 | Outpatient (RCR) | payer OTHER, SELFPAY ==
--- NOTE | 2024-09-22 10:43 | MHC.PT.EP ---
[facility] [place] Office [place] Office [place] Office [address] Saira Hodges [address] [phone] F: [phone] F: [phone] F: [phone] F: [phone] Physical Therapy Plan of Care Date of Evaluation: 09/22/24 Date of Surgery: NA Diagnosis: LBP Assessment: Pt IS 63 YO F REFERRED TO PT FROM DR UPTON WITH LBP. Pt WITH C/O LBP SINCE FALL May (ON ESCALATOR AT [facility]). ER REPORT DIAGNOSED Pt WITH BPPV (BECAUSE OF DIZZINESS REPORTED BEFORE FALL) BUT Pt DENIES DIZZINESS SXS NOW WITH GT OR TRANSFERS. Pt WITH ANTALGIC GT WITH SIGNIF LE VALGUS. HX OF CVA AFFECTING L SIDE. DOES HAVE SOME L LE WEAKNESS. SHOULD BENFIT FROM PT TO ADDRESS THESE ISSUES Frequency and Duration: The patient will be seen 2X/WK X 6 WKS Short Term Goals: 1. INCREASED AWARENESS BACK CARE AND POSTURE 2. IMPROVED GT PATTERN WITH LRAD/NO DEVICE 3. Pt TO DEMONSTRATE 2-3 TASKS WITH PROPER BODY MECH [facility] Goals: 1. I HEP WITH DC EX PLAN 2. DECREASED BACK PAIN AT LEAST 50% WITH ADLS Treatment Plan: Modalities to reduce pain, spasms and effusion. Manual therapy to restore motion and function. Therapeutic exercise to improve strength and flexibility. Neuromuscular re-education for posture and balance. Therapeutic activities to return to functional activities of daily living. Electronically signed by: RAFAELA TYLER PT Please sign and return to therapist. Thank you for your referral.
--- NOTE | 2024-10-20 16:31 | MHC.PT.DC ---
[facility] [place] Office [place] Office [place] Office [address] Saira Hodges [address] [phone] F: [phone] F: [phone] F: [phone] F: [phone] Physical Therapy Discharge Report Diagnosis: LBP Date of Surgery: NA Date of Evaluation: 09/22/24 Date of Discharge: 10/20/24 Treatments to Date: 8 Cancellations to Date: No Shows to Date: Discharge Status: Achieved Goals Improved Function Independent with HEP Discharge Summary: HAS MET MOST PT GOALS AGREES WITH DC. TO WORK ON HOME PROG Electronically signed by: RAFAELA TYLER PT Please sign and return to therapist. Thank you for your referral.
== END 2024-10-20 16:32 | disposition home or self-care (01) ==
LOC: HO.PT 13:53
PROVIDERS: PCP Internal Medicine; Visit Provider Internal Medicine
DX: M54.50 Low back pain, unspecified (principal)
CPT/HCPCS: 97110; 97140; 97161

== ENCOUNTER 2024-11-02 11:36 | Outpatient (REF) | payer OTHER, SELFPAY ==
--- OUTSIDE RECORDS SUMMARY | 2024-11-02 14:05 | XMS_ITS | Encounter Summary ---
Author Organization [employer] Address [address] [place] [address] Care Team Providers Care Titrator Name Role Phone Yolanda Priest MD Primary Care Provider + King Orlando PharmD Unavailable [phone] Reason for Visit * Reason Onset Date Comments Appointment Request 07/03/2024 Encounter Details Date Type Department Care Team ([facility] st Contact Info) Description 07/03/2024 Telephone [facility] [address] [place], [place] [phone] Yolanda Priest MD [address] [place], [place] [phone] Appointment Request Social History Tobacco Use Types [...] with others, in a hotel, in a custodial, living outside on the street, on a [...] King from 06/24. Please contact pt at [phone]. ([place] Speaker) documented in this encounter Plan of Treatment Upcoming Encounters Date Type Department Care Team (Late st Contact Info) Description 11/09/2024 2:00 PM EDT Telemedicine [facility] [address] [place] [address] King Orlando, PharmD [address] [place] [address] 02/18/2025 3:00 PM EDT Office Visit [facility] [address] [place] [address] Tana Guzman [address] [place] [address] 04/19/2025 1:00 PM EDT Office Visit [facility] [address] [place], [place] [phone] Reyna Jara, OD [address] [place] [address] documented as of this encounter Goals Goal Patient Goal Type Associated Problems Recent Progress Patient-Stated? Author Blood Pressure < 140/90 Blood Pressure 118/60(2024 1:58 PM EDT) No King Orlando PharmD Hemoglobin A1c < 7 Result Component 10.5(10/13/19 2:52 PM EDT) No King Orlando PharmD documented as of this encounter Visit Diagnoses Not on filedocumented in this encounter Additional Health Concerns Assessment Noted Time PHQ-9 Depression Total Score: 13 02/23/ 024 1:39 PM EDT documented as of this encounter Care Teams Titrator Relationship Specialty Start Date End Date Yolanda Priest MD [address] [place] [address] PCP - General Family Medicine 01/10/17 King Orlando PharmD [address] [place] [address] Pharmacist Internal Medicine 10/02/23 documented as of this encounter
--- OUTSIDE RECORDS SUMMARY | 2024-11-02 14:05 | XMS_ITS | Clinical Summary ---
Author Organization [email or web address] Address [address] [facility] 7t [place] [address] Care Team Providers Care Loom Operator Name Role Phone Yolanda Priest MD Primary Care Provider + King Orlando PharmD Unavailable [phone] Allergies No known active allergies Medications melatonin 3 MG tablet TAKE 1 TO 2 TABLETS BY MOUTH AT BEDTIME NEEDED 2023 Active Blood Pressure Monitor kit Use as directed 3x/week 1 kit 2023 Active lisinopril (Prinivil) 10 MG tabletIndications:Esse ntial hypertension Take 1 tablet (10 mg) by mouth Once per day. 90 tablet 3 12/23 Active rosuvastatin (Crestor) 40 MG tabletIndications:Unco ntrolled type 2 diabetes mellitus with hyperglycemia (CMS/HCC) Take 1 tablet by mouth once daily 90 tablet 3 2023 Active glucose blood (FreeStyle Precision Akash Test) test stripIndications:Uncon trolled type 2 diabetes mellitus with hyperglycemia (CMS/HCC) USE DIRECTED TO TEST BLOOD SUGAR UP TO THREE TIMES DAILY 50 strip 5 2023 Active insulin pen needle (Pentips) 32G x 4 mm miscIndications:Uncont rolled type 2 diabetes mellitus with hyperglycemia (CMS/HCC) Use daily with insulin 100 each 3 2023 Active metFORMIN (Glucophage) 1000 MG tabletIndications:Type 2 diabetes mellitus with other circulatory complication, with long-term current use of insulin (CMS/HCC) TAKE 1 TABLET BY MOUTH TWICE DAILY IN THE MORNING AND IN THE EVENING 60 tablet 6 2023 Active busPIRone (Buspar) 15 MG tablet TAKE 1 TABLET BY MOUTH TWICE DAILY IN THE MORNING AND IN THE EVENING 2023 Active pantoprazole (ProtoNix) 40 MG EC tablet TAKE 1 TABLET BY MOUTH EVERY DAY 30 MINUTES BEFORE BREAKFAST 2023 Active famotidine (Pepcid) 20 MG tablet Take 20 mg by mouth at bedtime. 2023 Active empagliflozin (Jardiance) 25 MGIndications:Uncontro lled type 2 diabetes mellitus with hyperglycemia (CMS/HCC) Take 1 tablet (25 mg) by mouth Once per day. 90 tablet 3 2023 Active meclizine (Antivert) 12.5 MG tablet TAKE 1 TABLET ORALLY 3 TIMES A DAY NEEDED FOR DIZZINESS 2023 Active ergocalciferol (Vitamin D2) 1.25 MG (79262 UT) capsuleIndications:Pur e hypercholesterolemia TAKE 1 CAPSULE BY MOUTH ONCE PER WEEK 12 capsule 1 2023 Active glipiZIDE XL (Glucotrol XL) 10 MG 24 hr tabletIndications:Type 2 diabetes mellitus with chronic kidney disease, with long-term current use of insulin, unspecified CKD stage (CMS/HCC) Take 1 tablet (10 mg) by mouth Once per day. Do not crush, chew, or split. 30 tablet 11 07/17 Active Continuous Glucose Sensor (FreeStyle Mitch 3 Plus Sensor) miscIndications:Type 2 diabetes mellitus with chronic kidney disease, with long-term current use of insulin, unspecified CKD stage (CMS/HCC) Apply 1 Device topically every 15 days. 2 each 5 2024 Active Continuous Glucose Fruit Loader Machine Operator (FreeStyle Mitch 3 Marcellus) deviceIndications:Type 2 diabetes mellitus with chronic kidney disease, with long-term current use of insulin, unspecified CKD stage (CMS/HCC) 1 Device Use as directed. Use to check BG as directed 1 each 2024 Active insulin degludec (Tresiba) 100 UNIT/ML injectionIndications:U ncontrolled type 2 diabetes mellitus with hyperglycemia (CMS/HCC) Inject 16 units under the skin once daily 2024 Active ezetimibe (Zetia) 10 MG tabletIndications:Type 2 diabetes mellitus with chronic kidney disease, with long-term current use of insulin, unspecified CKD stage (CMS/HCC) Take 1 tablet (10 mg) by mouth Once per day. 90 tablet 1 2024 Active TRUEplus Lancets 33G miscIndications:Uncont rolled type 2 diabetes mellitus with hyperglycemia (CMS/HCC) USE DIRECTED TO TEST BLOOD SUGAR UP TO THREE TIMES DAILY 100 each 5 2024 Active bismuth subsalicylate (Pepto Bismol) 262 MG chewable tablet CHEW 2 TABLETS 4 TIMES A DAY FOR 14 DAYS 11/12 Active doxycycline (Vibramycin) 100 MG capsule Take 1 capsule by mouth 2 times daily. 2024 Active metroNIDAZOLE (Flagyl) 500 MG tablet Take 2 tablets by mouth 2 times daily. 2024 Active Senna-Time 8.6 MG tablet TAKE 2 TABLETS BY MOUTH AT BEDTIME FOR CONSTIPATION 2024 Active aspirin (Aspirin Adult Low Dose) 81 MG EC tabletIndications:Type 2 diabetes mellitus with chronic kidney disease, with long-term current use of insulin, unspecified CKD stage (CMS/HCC) Take 1 tablet by mouth daily 90 tablet 3 2024 Active SITagliptin (Januvia) 100 MG tabletIndications:Type 2 diabetes mellitus with chronic kidney disease, with long-term current use of insulin, unspecified CKD stage (CMS/HCC) Take 1 tablet (100 mg) by mouth Once per day. 30 tablet 11 2024 Active insulin aspart (NovoLOG FLEXPEN) 100 UNIT/ML penIndications:Type 2 diabetes mellitus with chronic kidney disease, with long-term current use of insulin, unspecified CKD stage (CMS/HCC) Inject 4 units subcutaneously once daily before largest meal of the day. 15 mL 3 2024 Active aspirin (Aspirin Adult Low Dose) 81 MG EC tabletIndications:Unco ntrolled type 2 diabetes mellitus with hyperglycemia (CMS/HCC) Take 1 tablet by mouth daily 90 tablet 1 10/12 Discontinued( Reorder (will not trigger notification to Pharmacy)) Lancets 33G miscIndications:Uncont rolled type 2 diabetes mellitus with hyperglycemia (CMS/HCC) Use to test blood sugar as needed for hypoglycemia (up to TID) 100 each 5 10/06 Discontinued cyclobenzaprine (Flexeril) 10 MG tablet Take 1 tablet (10 mg) by mouth at bedtime for 10 days. 10 tablet 10/12 Discontinued( Med list cleanup (will not trigger notification to Pharmacy)) Active Problems Problem Noted Date Diagnosed Date [...] and they have leasing contract. Refer to [facility] to help her with rent applications and [...] as tolerated. FU in 3-4 months w me, earlier with [facility] clinic. Assessment & Plan (01/10/2024 1:55 PM EDT): It seems to be improving. Continue Tresiba 40 U + Novolog tid ac meals Continue Jardiance 25mg/d, glipizide 10mg/d and metformin 1000 mg bid FU w [facility] clinic and w me in 2m Assessment & Plan (11/26/2023 12:24 [...] uncontrolled., pt will fu with endo at [facility] next week. pt to bring glucometer to pharmacy vs order new glucometer continue lantus 40 units + Humalog TID ac meals + po medications. FU with me in 3 months Assessment & Plan (11/08/2022 10:55 AM EDT): Uncontrolled. Increase lantus to 40 units, no change in other medications FU with me in 4 weeks. refer to car hopper and reminded pt to be complaint with [...] Encounters Date Type Department Care Team Description 10/28/2024 Telephone [facility] [address] [place] [address] Reyna Jara, OD 10/26/2024 Telephone [facility] [address] [place] [address] Yolanda Priest MD 10/26/2024 Telephone [facility] [address] [place] [address] Yolanda Priest MD Appointment Request 10/15/2024 2:00 PM EDT Office Visit [facility] [address] [place] [address] Reyna Jara, OD Both eyes affected by mild nonproliferative diabetic retinopathy with macular edema, associated with type 2 diabetes mellitus ([facility]) (Primary Dx); White without pressure of peripheral retina of left eye; Combined forms of age-related cataract of both eyes 10/15/2024 Travel 10/12/2024 Travel 10/04/2024 Refill [facility] [address] [place] [address] King Orlando, PharmD Uncontrolled type 2 diabetes mellitus with hyperglycemia (CMS/HCC) 09/04/2024 Orders Only [facility] External Provider, [facility] 09/01/2024 Telephone [facility] [address] [place] [address] Yolanda Priest MD Prior Authorization 09/01/2024 Telephone [facility] [address] [place] [address] Yolanda Priest MD Med Refill 08/20/2024 Telephone [facility] [address] [place] [address] Yolanda Priest MD Referral 08/12/2024 Telephone [facility] [address] [place] [address] Yolanda Priest MD telephone call 08/12/2024 Travel from Last 3 Months Immunizations Name Administration [...] with others, in a hotel, in a chcf, living outside on the street, on a [...] Sign Reading Time Taken Comments Blood Pressure 118/60 10/12/2024 1:58 PM EDT Pulse 94 10/12/2024 1:58 PM EDT Temperature 36 ??C (96.8 ??F) 06/12/2024 9:43 [...] Info) Description 11/09/2024 2:00 PM EDT Telemedicine [facility] [address] [place] [address] King Orlando, PharmD [address] [place] [address] 02/18/2025 3:00 PM EDT Office Visit [facility] ADULT DENTAL [address] [place] [address] Megan, Tana [address] [place] [address] 04/19/2025 1:00 PM EDT Office Visit [facility] [address] [place] [address] Marek, Reyna, OD [address] [place] [address] Health Maintenance Due Date Last Done Comments CT Colonography 1960 Colonoscopy 1960 FIT 1960 FOBT 1960 Sigmoidoscopy 1960 HPV/Cotest 11/17/1989 COVID-19 Vaccine ( season) 2024 06/29/2022, 12/01/2021, 12/07/2020, Additional history exists Dental Oral Exam 05/22/2024 11/20/2023 Dental Prophylaxis 06/13/2024 12/11/2023 Depression Monitoring (PHQ-9) 08/26/2024 02/24/2024, 02/24/2024 Mammogram 2024 11/19/2023, 10/27, 11/14/2022, Additional history exists Dental X-Ray: Bitewings 11/20/2024 11/20/2023 SDOH Screening 11/25/2024 11/26/2023 Diabetes: Foot Exam 01/09/2025 01/10/2024, 01/10/2024, 01/10/2024, Additional history exists Diabetes: Hemoglobin A1C 01/12/2025 03/2 025, 05/27/2024, 02/24/2024, Additional history exists Lipid Panel 02/18/2025 02/19/2024, 05/0 09/2023, 11/22/2022, Additional history exists Alcohol/Substance Use Screening 02/23/2025 02/24/2024 Depression Screening 02/23/2025 02/24/2024, 02/24/20 Eye Exam 10/15/2025 10/15/2024, 09/27, 10/15/2024, Additional history exists Tobacco Screening 10/26/2025 10/26/2024 Colorectal Cancer Screening 03/05/2026 FIT DNA/Cologuard 03/05/2026 [...] 2:52 PM EDT) No King Orlando PharmD Procedures Procedure Name Priority Date/Time Associated Diagnosis Comments OCT, RETINA - OU - BOTH EYES Routine 10/15/2024 2:00 PM EDT Both eyes affected by mild nonproliferative diabetic retinopathy with macular edema, associated with type 2 diabetes mellitus ([facility]) POCT GLYCATED HEMOGLOBIN, TOTAL Routine 10/12/2024 2:52 PM EDT Type 2 diabetes mellitus with chronic kidney disease, with long-term current use of insulin, unspecified CKD stage ([facility]) FL UPPER GI W BARIUM SWALLOW Routine 09/04/2024 7:50 AM EST PAP SMEAR Routine 06/12/2024 10:17 AM EST Encounter for cervical Pap smear with pelvic exam LIPID PANEL, STANDARD Routine 02/19/2024 9:37 AM [...] Recently Relevant to Health Maintenance Results * OCT, Retina - OU - Both Eyes (10/15/2024 2:00 PM EDT) Narrative Reyna Jara, OD - 10/27/2024 2:20 PM EDT Images from the original result were not included. OCT [employer] Optical Coherence Tomography Interpretation Report Measurements: OD ??OS Macula Thickness ??245 microns ??259 microns Test findings: OD: ??Normal foveal contour, cystoid macular edema (CME) temporal to fovea extending superior and inferior, no retinal pigment epithelium (RPE) disruption, no subretinal fluid (SRF) OS: Normal foveal contour, mild cystoid macular edema (CME) throughout the macula, no retinal pigment epithelium (RPE) disruption, no subretinal fluid (SRF) Impression and Plan: Will refer to retinal specialist for further evaluation and treatment. us Reyna Jara OD OPHTH TOMOGRAPHY Final Result * (ABNORMAL) POCT HGB A1C (10/12/2024 2:52 PM EDT) Hemoglobin A1C 10.5(A) 4.0 - 6.0 % QC Media Lot # [id number] Lot# Expiration Date Blood 10/12/2024 2:52 PM EDT Yolanda Priest MD POINT OF CARE TEST ENTER /EDIT ORDERABLES Final Result * FL Upper GI w/Barium Swallow (09/04/2024 7:50 AM EST) Anatomical Region Laterality Modality Body Radiographic Kalyani ging 09/04/2024 7:50 AM EST Narrative 09/04/2024 5:00 PM EST ? [facility] ?[address] ?[place] [address] ? Fluoroscopy Report ? Signed ? Patient: Alice Amin ?MR#: [id number] ?? [id number] ? : 1960 ?Acct:[id number] ? Age/Sex: 63 / F ?ADM Date: 02/07/25 ? Loc: HO.XRAY ? Attending Dr: Emmy AGUILAR ? Ordering Physician: Emmy Clark ?? Date of Service: 09/04/24 ?? Procedure(s): FL upper GI w Ba Swallow ?? Accession Number(s): [id number] ? cc: Yolanda Priest MD; Emmy Clark [...] Hull MD ??09/04/2024 04:57 PM EST RP ? Dictated By: ?Balaji Patel ? Signed By: ?<Electronically signed by Balaji Patel in OV> ? 09/04/241656 ?<Electronically signed by Jian Hull MD in OV> ? 09/04/24 1700 ? DD/ 0750 ? TD/TT: 09/04/24 0813 ? Gas Processing Plant Operator: ? Procedure Note Donotuseinterpreter, Image - 09/04/2024 [place] [address] Fluoroscopy Report Signed Patient: Alice Amin MMR#: [id number] : 1960Acct:[id number] Age/Sex: 63 / FADM Date: 09/04/24 Loc: GABI Attending Dr: Emmy AGUILAR Ordering Physician: Emmy Clark Date of Service: 09/04/24 Procedure(s): FL upper GI w Ba Swallow Accession Number(s): [id number] cc: Yolanda Priest MD; Emmy Clark PETROLEUM REFINING FIRERMARYURI EXAMINATION: XR FLUOROSCOPY UPPER GI WITH AIR [...] Jian Hull MD 09/04/2024 04:57 PM EST Dictated By: Balaji Patel Signed By: <Electronically signed by Balaji Patel in OV> 09/04/24 1657 <Electronically signed by Jian Hull MD in OV> 09/04/24 1700 DD/ 0750 TD/TT: 09/04/24 0813 Gas Processing Plant Operator: [facility] External Provider IMG FLU OROSCOPY PROCEDURES Final Result * Pap Smear (06/12/2024 10:17 AM EST) Swab 06/12/2024 10:1 7 AM EST 06/12/2024 1:50 PM EST Narrative [facility] - 07/01/2024 7:48 AM EST ----- ------- Name: Alice Amin ? Age/Sex: 63/F ? : 1960 Unit#: [id number] ?? Attend Dr: Yolanda Priest MD ?Re06/12/24 ?Status: DEP REF ? Location: HO.CLNP ? Disch: ? ----- ------- SPEC : [id number] ?RECD: 06/12/24-1349 ? STATUS: ??SOUT ? REQ NUM: [id number] ? ANTONIETA: 06/12/24-1017 ? SUBM DR: Yolanda Priest MD ? ENTERED: ??06/12/24-1354 ?SP TYPE: Pap Smr ?OTHR : ? [...] ------- Signed (signature on file) KATRIN Head (ASCP) 07/01/24 0748 ? ----- ------- ? END OF REPORT ? us Yolanda Priest MD LAB CYTOLOGY ORDERABLES Final Result Performing Organization Address [facility] Co de Phone Number [facility] [address] [place] [address] [phone] * (ABNORMAL) Lipid Panel, Standard (02/19/2024 9:37 AM EDT) Triglycerides 96 <150 mg/dL [facility] Comment:Desirable Triglyceri de: less than 150 mg/dLBorderline High Triglyceride 150-199 mg/dLHigh Triglyceride: 200-499 mg/dLVery High Triglyceride: greater than or equal to 5OO mg/dL Cholesterol 178 <200 mg/dL [facility] Comment:Desirable Cholestero l: less than 200 mg/dLBorderline High Cholesterol: 200-239 mg/dLHigh Cholesterol: greater than 239 mg/dL LDL Cholesterol Calculated 110(H) <100 mg/dL [facility] Comment:Desirable LDL: less than 100 mg/dLNear Optimal/Above Optimal LDL: 110- 129 mg/dLBorderline High LDL: 130-159 mg/dLHigh LDL: 160-189 mg/dLVery High LDL: greater than or equal to 190 mg/dL HDL Cholesterol 49 >40 mg/dL [facility] Comment:Desirable HDL: great er than 40 mg/dL Note: This HDL assay may give artificially low results in patients with liver disease. 02/19/2024 9:37 AM EDT 02/19/2024 11:44 AM EDT us Yolanda Priest MD LAB BLOOD ORDERABLES Fin al Result Performing Organization Address City/[facility]/ZIP Co de Phone Number [facility] [address] [place] [address] [phone] * BI Mammogram Screening Tomosynthesis Bilateral (11/19/2023 2:27 PM EDT) Anatomical Region Laterality Modality Breast Bilateral Mammography 11/19/2023 2:27 PM EDT Narrative 12/05/2023 12:56 PM EDT ? [place] [facility] ? [address] ?[place] [address] ? Mammography Report ? Signed ? Patient: Carolyn Whitmore,Alice M ?MR#: [id number] ?? [id number] ? : 1960 ?Acct:[id number] ? Age/Sex: 63 / F ?ADM Date: 11/19/23 ? Loc: HO.MAMMO ? Attending Dr: Yolanda Priest MD ? Ordering Physician: Yolanda Priest MD ?Results: 2Be ?? nign Findings ? Date of Service: 11/19/23 ?Follow Up: 1 Year From Orig ?? inal Mammogram ? Procedure(s): MM tomosynthesis screening BI ?? Accession Number(s): [id number] ? cc: Yolanda Priest MD ? EXAMINATION: [...] signed by Jian Hull MD in OV> ?12/05/23 1252 ? DD/ 1427 ? TD/TT: ? Gas Processing Plant Operator: ? Procedure Note Valeriephillip, Image - 12/05/2023 Jamie [facility] [address] [place] [address] Mammography Report Signed Patient: Alice Amin [facility]#: [id number] : 1960Acct:[id number] Age/Sex: 63 / FADM Date: 11/19/23 Loc: HO.MAMMO Attending Dr: Yolanda Priest MD Ordering Physician: Yolanda Priest MDResults: 2Be nign Findings Date of Service: 11/19/23Follow Up: 1 Year From Orig inal Mammogram Procedure(s): MM tomosynthesis screening BI Accession Number(s): [id number] cc: Yolanda Priest MD EXAMINATION: MM SCREENING [...] in OV> 12/05/23 1252 DD/ 1427 TD/TT: Gas Processing Plant Operator: us Yolanda Priest MD IMG BI PROCEDURES Final Result * HIV Ab/Ag ([place] [facility]) (05/23/2023 2:35 PM EDT) HIV AB/AG Nonreactive Nonreactive [facility] Comment:HIV-1 p24 Ag and/or HIV-1/HIV-2 Ab not detected.A test result that is nonreactive does not exclude thepossibility of exposure to or infection with HIV-1 and/orHIV-2. Nonreactive results in this assay for individualswith prior exposure to HIV-1 and/or HIV-2 may be due toantigen and antibody levels that are below the limit ofdetection of this assay.The [employer] HIV Ag/Ab Combo assay result andsupplemental assay results should be interpreted inconjunction with the patient's clinical presentation,history and other laboratory results. If the results areinconsistent with clinical evidence, additional testing issuggested to confirm the result. 05/23/2023 2:35 PM EDT 05/23/2023 4:01 PM EDT us Yolanda Priest MD LAB BLOOD ORDERABLES Fin al Result Performing Organization Address City/[facility]/ZIP Co de Phone Number [facility] [address] [place] [phone] * Hepatitis Panel, General (05/23/2023 2:35 PM EDT) Hepatitis A IgM Nonreactive Nonreactive [facility] Comment:IgM antibodies to BROOKS V not detected; does not exclude earlyacute or recovered HAV infection. ~Hepatitis B Surface Antibody NONREACTIVE Nonreactive [facility] Comment:Nonreactive: < 8.00 mIU/mL Hepatitis B Core Antibody Nonreactive Nonreactive [facility] Hepatitis C Antibody Nonreactive Nonreactive [facility] Comment:Antibodies to HCV no t detected; does not exclude early acuteHCV infection. Hepatitis B Surface Ag Negative Negative [facility] Blood 05/23/2023 2:35 PM EDT 05/23/2023 4:01 PM EDT us Yolanda Priest MD LAB BLOOD ORDERABLES Fin al Result Performing Organization Address City/[facility]/ZIP Co de Phone Number [facility] [address] [place] [phone] * Cologuard?? colon cancer screening (03/05/2023 2:15 PM EDT) Cologuard Cancer Screen Negative [facility] (CLIA #:[id number]) Stool Anal structure / Unknown 03/05/2023 2:15 PM EDT us Yolanda Priest MD LAB MOLECULAR DIAGNOSTIC S ORDERABLES Final Result [facility] (CLIA #:[id number]) [place] [address], [place] [phone] from Last 3 Months or Most Recently Relevant to Health Maintenance Insurance [facility] Care Teams Loom Operator Relationship Specialty Start Date End Date Yolanda Priest MD [address] [place] [address] PCP - General Family Medicine 01/10/17 King Orlando, DouglasD [address] [place] [address] Pharmacist Internal Medicine 10/02/23
--- OUTSIDE RECORDS SUMMARY | 2024-11-02 14:05 | XMS_ITS | Encounter Summary ---
Author Organization [employer] Address [address] [facility] 7t [place] [address] Care Team Providers Care Maintenance Carpenter Name Role Phone Yolanda Priest MD Primary Care Provider + King Orlando PharmD Unavailable Reason for Visit * Reason Onset Date Comments Call Back 03/01/2023 Encounter Details Date Type Department Care Team (Late st Contact Info) Description 03/01/2023 Telephone [facility] [address] [place], [place] [phone] Yolanda Priest MD [address] [place], [place] [phone] Call Back Social History Tobacco Use Types [...] Miscellaneous Notes * Telephone Encounter - Miranda Pham - 03/01/2023 1:23 PM EDT Tc from [place] with [facility] requesting to speak with a nurse in regards to a mutual pt. She informs is in regards to a medical release form for a physical that is needed, keno writer/runner offer to transferover but she prefers to speak with a nurse but at the end I transfer her over but she still wanted me to send message. Please contact pt at [phone] documented in this encounter Plan of Treatment Upcoming Encounters Date Type Department Care Team (Late st Contact Info) Description 11/09/2024 2:00 PM EDT Telemedicine [facility] [address] [place] [address] King Orlando, PharmJanelle [address] [place] [address] 02/18/2025 3:00 PM EDT Office Visit [facility] ADULT DENTAL [address] [place] [address] Tana Guzman [address] [place] [address] 04/19/2025 1:00 PM EDT Office Visit [facility] [address] [place] [address] Marek, Reyna, OD [address] [place] [address] documented as of this encounter Visit Diagnoses Not on filedocumented in this encounter Additional Health Concerns Assessment Noted Time PHQ-9 Depression Total Score: 7 11/09/19 23 10:16 AM EDT documented as of this encounter Care Teams Maintenance Carpenter Relationship Specialty Start Date End Date Yolanda Priest MD [address] [place] [phone] PCP - General Family Medicine 01/10/17 King Orlando, PharmD [address] [place] [phone] Pharmacist Internal Medicine 10/02/23 documented as of this encounter
--- OUTSIDE RECORDS SUMMARY | 2024-11-02 14:05 | XMS_ITS | Encounter Summary ---
Author Organization [employer] Address [address] [facility] [address] [place] [address] Care Team Providers Care Beater Boss Name Role Phone Yolanda Priest MD Primary Care Provider + King Orlando PharmD Unavailable Reason for Visit * Reason Onset Date Comments Prior Authorization 09/01/2024 Encounter Details Date Type Department Care Team (Late st Contact Info) Description 09/01/2024 Telephone [facility] [address] [place], [place] [phone] Yolanda Priest MD [address] [place], [place] [phone] Prior Authorization Social History Tobacco Use Types [...] with others, in a hotel, in a long term, living outside on the street, on a [...] Patient picked up Mitch 3 reader from [facility] pharmacy 08/14/2024. * Telephone Encounter - Dez Porter - 09/01/2024 9:12 AM EST PA request for Continuous Glucose Sensor (FreeStyle Mitch 3 Plus Sensor) [facility] documented in this encounter Plan of Treatment Upcoming Encounters Date Type Department Care Team (Late st Contact Info) Description 11/09/2024 2:00 PM EDT Telemedicine [facility] [address] [place] [address] King Orlando PharmD [address] [place] [address] 02/18/2025 3:00 PM EDT Office Visit [facility] ADULT DENTAL [address] [place] [address] Megan, Tana [address] [place] [address] 04/19/2025 1:00 PM EDT Office Visit [facility] OPT[facility] [address] [place] [address] Marek, Reyna, OD [address] [place] [address] documented as of this encounter Goals Goal [...] documented as of this encounter Care Teams Beater Boss Relationship Specialty Start Date End Date Yolanda Priest MD [address] [place] [phone] PCP - General Family Medicine 01/10/17 King Orlando PharmD [address] [place] [phone] Pharmacist Internal Medicine 10/02/23 documented as of this encounter
--- OUTSIDE RECORDS SUMMARY | 2024-11-02 14:05 | XMS_ITS | Encounter Summary ---
Author Organization [employer] Address [address] [facility] 7t [place] [address] Care Team Providers Care Servicer Coin Machines Name Role Phone Yolanda Priest MD Primary Care Provider + King Orlando PharmD Unavailable [phone] Reason for Visit * Reason Onset Date Comments Appointment Request 10/26/2024 Encounter Details Date Type Department Care Team ([facility] st Contact Info) Description 10/26/2024 Telephone [facility] MEDICINE [address] [place], [place] [phone] Yolanda Priest MD [address] [place], [place] [phone] Appointment Request Social History Tobacco Use Types [...] with others, in a hotel, in a mcfp, living outside on the street, on a [...] encounter Miscellaneous Notes * Telephone Encounter - Alpa Villa - 10/26/2024 10:42 AM EDT Tc from pt requesting r/s 10/26 appointment with King (pharmacy). documented in this encounter Plan of Treatment Upcoming Encounters Date Type Department Care Team (Late st Contact Info) Description 11/09/2024 2:00 PM EDT Telemedicine [facility] MEDICINE [address] [place] [address] King Orlando, PharmD [address] [place] [address] 02/18/2025 3:00 PM EDT Office Visit [facility] ADULT DENTAL [address] [place] [address] Tana Guzman [address] [place] [address] 04/19/2025 1:00 PM EDT Office Visit [facility] OPTOMETRY [address] [place], [place] [phone] Marek, Reyna, OD 230 [place] [address] documented as of this encounter Goals Goal Patient Goal Type Associated Problems Recent Progress Patient-Stated? Author Blood Pressure < 140/90 Blood Pressure 118/60(2024 1:58 PM EDT) No King Orlando, Aditi Hemoglobin A1c < 7 Result Component 10.5(10/13/19 2:52 PM EDT) No King Orlando PharmD documented as of this encounter Visit Diagnoses Not on filedocumented in this encounter Additional Health Concerns Assessment Noted Time PHQ-9 Depression Total Score: 13 02/23/ 024 1:39 PM EDT documented as of this encounter Care Teams Servicer Coin Machines Relationship Specialty Start Date End Date Yolanda Priest MD [address] [place] [address] PCP - General Family Medicine 01/10/17 King Orlando PharmD [address] [place] [address] Pharmacist Internal Medicine 10/02/23 documented as of this encounter
--- OUTSIDE RECORDS SUMMARY | 2024-11-02 14:05 | XMS_ITS | Encounter Summary ---
Author Organization [employer] Address 75 [facility] 7t [place] [address] Care Team Providers Care Senior Manager Mergers & Acquisitions Name Role Phone Yolanda Priest MD Primary Care Provider + King Orlando PharmD Unavailable [phone] Reason for Visit * Reason Onset Date Comments Med Refill 09/01/2024 Encounter Details Date Type Department Care Team (Late st Contact Info) Description 09/01/2024 Telephone [facility] MEDICINE 230 [place], [place] [phone] Yolanda Priest MD [address] [place], [place] [phone] Med Refill Social History Tobacco Use Types [...] with others, in a hotel, in a senior care, living outside on the street, on a [...] 09/01/2024 9:33 AM EST Medication sent to [facility] Pharmacy 07/17/24 #30 with 11 refills. * Telephone Encounter - Dez Porter - 09/01/2024 8:55 AM EST TC from pt requesting medication refill. Medications needing refill : Continuous Glucose Sensor (FreeStyle Mitch 3 Plus Sensor) [facility] glipiZIDE XL (Glucotrol XL) 10 MG 24 hr tablet To be sent to: [facility] - [place], [place] - [address] documented in this encounter Plan of Treatment Upcoming Encounters Date Type Department Care Team (Late st Contact Info) Description 11/09/2024 2:00 PM EDT Telemedicine [facility] MEDICINE 230 [place] [address] King Orlando PharmD 230 [place] [address] 02/18/2025 3:00 PM EDT Office Visit [facility] ADULT DENTAL 230 [place] [address] Megan, Tana [address] [place] [address] 04/19/2025 1:00 PM EDT Office Visit [facility] OPTOMETRY [address] [place] [address] MarekReyna, OD 230 [place] [address] documented as of this encounter Goals Goal Patient Goal Type Associated Problems Recent Progress Patient-Stated? Author Blood Pressure < 140/90 Blood Pressure 118/60(2024 1:58 PM EDT) No King Orlando PharmJanelle Hemoglobin A1c < 7 Result Component 10.5(10/13/19 2:52 PM EDT) No King Orlando PharmD documented as of this encounter Visit Diagnoses Not on filedocumented in this encounter Additional Health Concerns Assessment Noted Time PHQ-9 Depression Total Score: 13 02/23/ 024 1:39 PM EDT documented as of this encounter Care Teams Senior Manager Mergers & Acquisitions Relationship Specialty Start Date End Date Yolanda Priest MD [address] [place] [address] PCP - General Family Medicine 01/10/17 King Orlando PharmD [address] [place] [address] Pharmacist Internal Medicine 10/02/23 documented as of this encounter
--- OUTSIDE RECORDS SUMMARY | 2024-11-02 14:05 | XMS_ITS | Encounter Summary ---
Author Organization [employer] Address [address] [facility] 7t [place] [address] Care Team Providers Care Flight Deck Officer Name Role Phone Yolanda Priest MD Primary Care Provider + King Orlando PharmD Unavailable [phone] Encounter Details Date Type Department Care Team (Late Contact Info) Description 11/27/2022 Orders Only [facility] [address] [place], [place] [phone] Yolanda Priest MD 230 [place], [place] [phone] Uncontrolled type 2 diabetes mellitus with hyperglycemia [...] Description 11/09/2024 2:00 PM EDT Telemedicine [facility] 230 [place] [address] King Orlando, PharmJanelle 230 [place] [address] 02/18/2025 3:00 PM EDT Office Visit [facility] 230 [place] [address] Megan, Tana 230 [place] [address] 04/19/2025 1:00 PM EDT Office Visit [facility] OPTOMETRY [address] [place] [address] Marek, Reyna, OD 230 [place] [address] documented as of this encounter Visit Diagnoses Diagnosis Uncontrolled type 2 diabetes mellitus with hyperglycemia (CMS/[facility])- Primary documented in this encounter Additional Health Concerns Assessment Noted Time PHQ-9 Depression Total Score: 7 11/09/19 23 10:16 AM EDT documented as of this encounter Care Teams Flight Deck Officer Relationship Specialty Start Date End Date Yolanda Priest MD [address] [place] [address] PCP - General Family Medicine 01/10/17 King Orlando, Aditi [address] [place] [address] Pharmacist Internal Medicine 10/02/23 documented as of this encounter
--- OUTSIDE RECORDS SUMMARY | 2024-11-02 14:05 | XMS_ITS | Encounter Summary ---
Author Organization [employer] Address [address] [facility] [address] 7t [place] [address] Care Team Providers Care Concrete Swimming Pool Installer Name Role Phone Yolanda Priest MD Primary Care Provider + King Orlando PharmD Unavailable [phone] Encounter Details Date Type Department Care Team (Late st Contact Info) Description 10/28/2024 Telephone C OPTOMETRY [address] [place], [place] [phone] MarekReyna maravilla, OD [address] [place], [place] [phone] Social History Tobacco Use Types Packs/Day Years [...] encounter Miscellaneous Notes * Telephone Encounter - Erin Bullard - 10/28/2024 1:39 PM EDT Date of Service: Referral to Ophthalmology Patient Name: MRN: : Phone: [employer] # SUBSCRIBER ID Referring Provider Information: Reyna Marek, OD PCP: Appointment: Date: Time: Urgency: Referral Type: Diagnosis: Refer to Provider: MARY HAGEN Address: [facility] [address] [place] [address] documented in this encounter Plan of Treatment Upcoming Encounters Date Type Department Care Team (Late st Contact Info) Description 11/09/2024 2:00 PM EDT Telemedicine [facility] MEDICINE 230 [place], [place] [phone] King Orlando, PharmD 230 [place], [place] [phone] 02/18/2025 3:00 PM EDT Office Visit [facility] ADULT DENTAL [address] [place] [address] Megan, Tana [address] [place] [address] 04/19/2025 1:00 PM EDT Office Visit [facility] OPTOMETRY [address] [place] [address] Marek, Reyna, OD 230 [place] [address] documented as of this encounter Goals Goal [...] documented as of this encounter Care Teams Concrete Swimming Pool Installer Relationship Specialty Start Date End Date Yolanda Priest MD [address] [place] [address] PCP - General Family Medicine 01/10/17 King Orlando, DouglasD [address] [place] [address] Pharmacist Internal Medicine 10/02/23 documented as of this encounter
--- OUTSIDE RECORDS SUMMARY | 2024-11-02 14:05 | XMS_ITS | Encounter Summary ---
Author Organization [employer] Address [address] [facility] 7t [place] [address] Care Team Providers Care Lumber Carrier Operator Name Role Phone Yolanda Priest MD Primary Care Provider + King Orlando PharmD Unavailable Reason for Visit * Reason Comments Med Refill Encounter Details Date Type Department Care Team (Late st Contact Info) Description 05/07/2023 Refill [facility] ADULT DENTAL [address] [place], [place] [phone] Virgli Santoyo, STEVEN [address] [place], [place] [phone] Social History Tobacco Use Types Packs/Day Years [...] with others, in a hotel, in a nursing home, living outside on the street, on [...] Info) Description 11/09/2024 2:00 PM EDT Telemedicine [facility] MEDICINE 230 [place] [address] King Orlando, PharmD 230 [place] [address] 02/18/2025 3:00 PM EDT Office Visit [facility] ADULT DENTAL [address] [place] [address] Megan Tana 230 [place] [address] 04/19/2025 1:00 PM EDT Office Visit [facility] OPTOMETRY [address] [place] [address] Reyna Jara, LUCIA 230 [place] [address] documented as of this encounter Visit Diagnoses Not on filedocumented in this encounter Additional Health Concerns Assessment Noted Time PHQ-9 Depression Total Score: 7 11/09/19 23 10:16 AM EDT documented as of this encounter Care Teams Lumber Carrier Operator Relationship Specialty Start Date End Date Yolanda Priest MD 230 [place] [address] PCP - General Family Medicine 01/10/17 King Orlando PharmD 230 [place] [address] Pharmacist Internal Medicine 10/02/23 documented as of this encounter
--- OUTSIDE RECORDS SUMMARY | 2024-11-02 14:05 | XMS_ITS | Encounter Summary ---
Author Organization [employer] Address [address] [place] [address] 7t [place] [address] Care Team Providers Care Rotary Drum Tanner Name Role Phone Yolanda Priest MD Primary Care Provider + King Orlando PharmD Unavailable [phone] Encounter Details Date Type Department Care Team (Late st Contact Info) Description 02/22/2023 Orders Only [facility] MEDICINE [address] [place] [address] [phone] Alice [place] LPN Social History Tobacco Use [...] Info) Description 11/09/2024 2:00 PM EDT Telemedicine [facility] MEDICINE 230 [place], [place] [phone] King Orlando, PharmD 230 [place] [address] 02/18/2025 3:00 PM EDT Office Visit [facility] ADULT DENTAL [address] [place] [address] Megan, Tana [address] [place] [address] 04/19/2025 1:00 PM EDT Office Visit [facility] OPTOMETRY [address] [place] [address] Marek, Reyna, OD 230 [place] [address] documented as of this encounter Visit Diagnoses Not on filedocumented in this encounter Additional Health Concerns Assessment Noted Time PHQ-9 Depression Total Score: 7 11/09/19 23 10:16 AM EDT documented as of this encounter Care Teams Rotary Drum Tanner Relationship Specialty Start Date End Date Yolanda Priest MD [address] [place] [address] PCP - General Family Medicine 01/10/17 King Orlando, DouglasD [address] [place] [address] [phone] Pharmacist Internal Medicine 10/02/23 documented as of this encounter
[2024-11-02 14:37] LABS: Alanine Aminotransferase 20 U/L (0-31); Albumin Level 4.2 g/dL (3.5-5.0); Alkaline Phosphatase 85 U/L (39-117); Aspartate Amino Transferase 22 U/L (5-31); Bilirubin Direct 0.1 mg/dL (0.0-0.5); Bilirubin Total 0.4 mg/dL (0.0-1.0); Cholesterol 197 mg/dL (<200); HDL Cholesterol 52 mg/dL (>40); LDL Cholesterol Calculated 118 mg/dL (<100); Lipase 40 U/L (8-78); Triglycerides 136 mg/dL (<150)
[2024-11-05 13:19] LABS: Vitamin D 25-OH, D2 16 ng/mL; Vitamin D 25-OH, D3 14 ng/mL; Vitamin D 25-OH, Total 30 ng/mL (30-100)
== END 2024-11-02 11:37 | disposition home or self-care (01) ==
LOC: HO.HHCL 11:36
PROVIDERS: Nurse Practitioner Family; Visit Provider Internal Medicine
DX: E11.22 Type 2 diabetes mellitus with diabetic chronic kidney disease (principal); Z79.4 Long term (current) use of insulin; E55.9 Vitamin D deficiency, unspecified; R10.9 Unspecified abdominal pain
CPT/HCPCS: 36415; 80061; 80076; 82306; 83690

== ENCOUNTER 2024-11-24 13:38 | Outpatient (REF) | payer OTHER, SELFPAY ==
--- OUTSIDE RECORDS SUMMARY | 2024-11-24 15:43 | XMS_ITS | Encounter Summary ---
Author Organization [employer] Address [address] [facility] [address] 7[address] [place] [address] Care Team Providers Care Parachute/Combatant Diver Officer Name Role Phone Yolanda Priest MD Primary Care Provider + King Orlando PharmD Unavailable [phone] Encounter Details Date Type Department Care Team (Late st Contact Info) Description 10/28/2024 Telephone C OPTOMETRY [address] [place], [place] [phone] MarekReyna maravilla, OD [address] [place], [place] [phone] Social History Tobacco Use Types Packs/Day Years [...] MARY HAGEN Address: [facility] [address] [place] [address] documented in this encounter Plan of Treatment Upcoming Encounters Date Type Department Care Team (Late st Contact Info) Description 12/07/2024 2:00 PM EDT Medication Management [facility] MEDICINE 230 [place] [address] King Orlando, PharmD 230 [place], [place] [phone] 02/18/2025 3:00 PM EDT Office Visit [facility] ADULT DENTAL [address] [place] [address] Megan, Tana [address] [place] [address] 04/19/2025 1:00 PM EDT Office Visit [facility] OPTOMETRY [address] [place] [address] Marek, Reyna, OD 230 [place] [address] documented as of this encounter Goals Goal [...] documented as of this encounter Care Teams Parachute/Combatant Diver Officer Relationship Specialty Start Date End Date Yolanda Priest MD [address] [place] [address] PCP - General Family Medicine 01/10/17 King Orlando PharmD [address] [place] [address] Pharmacist Internal Medicine 10/02/23 documented as of this encounter
--- OUTSIDE RECORDS SUMMARY | 2024-11-24 15:43 | XMS_ITS | Encounter Summary ---
Author Organization [employer] Address [address] [facility] 7t [place] [address] Care Team Providers Care Furnace Roaster Name Role Phone Yolanda Priest MD Primary Care Provider + King Orlando PharmD Unavailable [phone] Reason for Visit * Reason Onset Date Comments Med Refill 09/01/2024 Encounter Details Date Type Department Care Team (Late st Contact Info) Description 09/01/2024 Telephone [facility] MEDICINE 230 [place], [place] [phone] Yolanda Priest MD 230 [place], [place] [phone] Med Refill Social History Tobacco Use Types [...] 09/01/2024 9:33 AM EST Medication sent to [facility] Pharm[facility] 07/17/24 #30 with 11 refills. * Telephone Encounter - Dez Porter - 09/01/2024 8:55 AM EST TC from pt requesting medication refill. Medications needing refill : Continuous Glucose Sensor (FreeStyle Mitch 3 Plus Sensor) [facility] glipiZIDE XL (Glucotrol XL) 10 MG 24 hr tablet To be sent to: [facility] - [place], [place] - [address] documented in this encounter Plan of Treatment Upcoming Encounters Date Type Department Care Team (Late st Contact Info) Description 12/07/2024 2:00 PM EDT Medication Management [facility] MEDICINE [address] [place] [address] King Orlando PharmD 230 [place] [address] 02/18/2025 3:00 PM EDT Office Visit [facility] ADULT DENTAL [address] [place] [address] Megan, Tana [address] [place] [address] 04/19/2025 1:00 PM EDT Office Visit [facility] OPTOMETRY [address] [place] [address] MarekReyna maravilla, OD 230 [place] [address] documented as of this encounter Goals Goal Patient Goal Type Associated Problems Recent Progress Patient-Stated? Author Blood Pressure < 140/90 Blood Pressure 118/60(2024 1:58 PM EDT) No King Orlando, PharmJanelle Hemoglobin A1c < 7 Result Component 10.5(10/13/19 2:52 PM EDT) No King Orlando PharmD documented as of this encounter Visit Diagnoses Not on filedocumented in this encounter Additional Health Concerns Assessment Noted Time PHQ-9 Depression Total Score: 13 02/23/ 024 1:39 PM EDT documented as of this encounter Care Teams Furnace Roaster Relationship Specialty Start Date End Date Yolanda Priest MD [address] [place] [address] PCP - General Family Medicine 01/10/17 King Orlando PharmD [address] [place] [address] Pharmacist Internal Medicine 10/02/23 documented as of this encounter
--- OUTSIDE RECORDS SUMMARY | 2024-11-24 15:43 | XMS_ITS | Encounter Summary ---
Author Organization [employer] Address [address] [facility] 7t [place] [address] Care Team Providers Care Bid Writer Name Role Phone Yolanda Priest MD Primary Care Provider + King Orlando PharmD Unavailable Reason for Visit * Reason Comments Med Refill Encounter Details Date Type Department Care Team (Late st Contact Info) Description 05/07/2023 Refill [facility] ADULT DENTAL 230 [place], [place] [phone] Virgil Santoyo, STEVEN 230 [place], [place] [phone] Social History Tobacco Use Types Packs/Day Years [...] with others, in a hotel, in a snf, living outside on the street, on a [...] Description 12/07/2024 2:00 PM EDT Medication Management [facility] MEDICINE 230 [place] [address] King Orlando, PharmD 230 [place] [address] 02/18/2025 3:00 PM EDT Office Visit [facility] ADULT DENTAL 230 [place] [address] Megan Tana 230 [place] [address] 04/19/2025 1:00 PM EDT Office Visit [facility] OPTOMETRY [address] [place] [address] Reyna Jara, LUCIA 230 [place] [address] documented as of this encounter Visit Diagnoses Not on filedocumented in this encounter Additional Health Concerns Assessment Noted Time PHQ-9 Depression Total Score: 7 11/09/19 23 10:16 AM EDT documented as of this encounter Care Teams Bid Writer Relationship Specialty Start Date End Date Yolanda Priest MD 230 [place] [address] PCP - General Family Medicine 01/10/17 King Orlando, Aditi [address] [place] [address] Pharmacist Internal Medicine 10/02/23 documented as of this encounter
--- OUTSIDE RECORDS SUMMARY | 2024-11-24 15:43 | XMS_ITS | Encounter Summary ---
Author Organization [employer] Address 75 [facility] 7t [place] [address] Care Team Providers Care Office Service Coordinator Name Role Phone Yolanda Priest MD Primary Care Provider + King Orlando PharmD Unavailable [phone] Reason for Visit * Reason Onset Date Comments Call Back 03/01/2023 Encounter Details Date Type Department Care Team (Late st Contact Info) Description 03/01/2023 Telephone [facility] MEDICINE [address] [place], [place] [phone] Yolanda Priest MD [address] [place], [place] [phone] Call Back Social History Tobacco Use Types [...] form for a physical that is needed, check writer offer to transferover but she prefers to speak with a nurse but at the end I transfer her over but she still wanted me to send message. Please contact pt at [phone] documented in this encounter Plan of Treatment Upcoming Encounters Date Type Department Care Team (Late st Contact Info) Description 12/07/2024 2:00 PM EDT Medication Management [facility] MEDICINE [address] [place] [address] King Orlando, PharmJanelle [address] [place] [address] 02/18/2025 3:00 PM EDT Office Visit [facility] ADULT DENTAL [address] [place] [address] Tana Guzman [address] [place] [address] 04/19/2025 1:00 PM EDT Office Visit [facility] OPTOMETRY [address] [place] [address] Marek, Reyna, OD 230 [place] [address] documented as of this encounter Visit Diagnoses Not on filedocumented in this encounter Additional Health Concerns Assessment Noted Time PHQ-9 Depression Total Score: 7 11/09/19 23 10:16 AM EDT documented as of this encounter Care Teams Office Service Coordinator Relationship Specialty Start Date End Date Yolanda Priest MD [address] [place] [address] PCP - General Family Medicine 01/10/17 King Orlando, PharmD [address] [place] [address] Pharmacist Internal Medicine 10/02/23 documented as of this encounter
--- OUTSIDE RECORDS SUMMARY | 2024-11-24 15:43 | XMS_ITS | Encounter Summary ---
Author Organization [employer] Address 75 [facility] 7t [place] [address] Care Team Providers Care Ethylbenzene Oxidizer Name Role Phone Yolanda Priest MD Primary Care Provider + King Orlando PharmD Unavailable [phone] Reason for Visit * Reason Onset Date Comments Appointment Request 07/03/2024 Encounter Details Date Type Department Care Team ([facility] st Contact Info) Description 07/03/2024 Telephone [facility] MEDICINE 230 [place], [place] [phone] Yolanda Priest MD [address] [place], [place] [phone] Appointment Request Social History Tobacco Use Types [...] King from 06/24. Please contact pt at [phone]. (Lithuanian Speaker) documented in this encounter Plan of Treatment Upcoming Encounters Date Type Department Care Team (Late st Contact Info) Description 12/07/2024 2:00 PM EDT Medication Management [facility] MEDICINE [address] [place], [place] [phone] King Orlando, PharmD [address] [place] [address] 02/18/2025 3:00 PM EDT Office Visit [facility] ADULT DENTAL 230 [place], [place] [phone] Tana Guzman 230 [place], [place] [phone] 04/19/2025 1:00 PM EDT Office Visit [facility] OPTOMETRY [address] [place], [place] [phone] Reyna Jara, OD 230 [place] [address] documented as of this encounter Goals Goal [...] documented as of this encounter Care Teams Ethylbenzene Oxidizer Relationship Specialty Start Date End Date Yolanda Priest MD [address] [place], [place] [phone] PCP - General Family Medicine 01/10/17 King Orlando PharmD [address] [place] [address] Pharmacist Internal Medicine 10/02/23 documented as of this encounter
--- OUTSIDE RECORDS SUMMARY | 2024-11-24 15:43 | XMS_ITS | Encounter Summary ---
Author Organization [email or web address] Address 75 [facility] 7t [place] [address] Care Team Providers Care Hotel Clerk Name Role Phone Yolanda Priest MD Primary Care Provider + King Orlando PharmD Unavailable [phone] Reason for Visit * Reason Onset Date Comments Prior Authorization 09/01/2024 Encounter Details Date Type Department Care Team (Late st Contact Info) Description 09/01/2024 Telephone [facility] MEDICINE 230 [place], [place] [phone] Yolanda Priest MD [address] [place], [place] [phone] Prior Authorization Social History Tobacco Use Types [...] Patient picked up Mitch 3 reader from [facility] pharmacy 08/14/2024. * Telephone Encounter - Dez Porter - 09/01/2024 9:12 AM EST PA request for Continuous Glucose Sensor (FreeStyle Mitch 3 Plus Sensor) [facility]. documented in this encounter Plan of Treatment Upcoming Encounters Date Type Department Care Team (Late st Contact Info) Description 12/07/2024 2:00 PM EDT Medication Management [facility] MEDICINE [address] [place] [address] King Orlando PharmD [address] [place] [address] 02/18/2025 3:00 PM EDT Office Visit [facility] ADULT DENTAL [address] [place] [address] Megan, Tana [address] [place] [address] 04/19/2025 1:00 PM EDT Office Visit [facility] OPTOMETRY [address] [place] [address] Marek, Reyna, OD 230 [place] [address] documented as of this encounter Goals Goal [...] documented as of this encounter Care Teams Hotel Clerk Relationship Specialty Start Date End Date Yolanda Priest MD [address] [place] [address] PCP - General Family Medicine 01/10/17 King Orlando PharmD [address] [place] [address] Pharmacist Internal Medicine 10/02/23 documented as of this encounter
--- OUTSIDE RECORDS SUMMARY | 2024-11-24 15:43 | XMS_ITS | Encounter Summary ---
Author Organization [employer] Address [address] [place] [address] 7t [place] [address] Care Team Providers Care Associate Doctor Name Role Phone Yolanda Priest MD Primary Care Provider + King Orlando PharmD Unavailable [phone] Encounter Details Date Type Department Care Team (Late st Contact Info) Description 02/22/2023 Orders Only [facility] [address] [place] [address] [phone] Alice Jennings LPN Social History Tobacco Use [...] Description 12/07/2024 2:00 PM EDT Medication Management [facility] [address] [place], [place] [phone] King Orlando, PharmD [address] [place] [address] 02/18/2025 3:00 PM EDT Office Visit [facility] [address] [place] [address] Megan, Tana [address] [place] [address] 04/19/2025 1:00 PM EDT Office Visit [facility] [address] [place] [address] Marek, Reyna, OD 230 [place] [address] documented as of this encounter Visit Diagnoses Not on filedocumented in this encounter Additional Health Concerns Assessment Noted Time PHQ-9 Depression Total Score: 7 11/09/19 23 10:16 AM EDT documented as of this encounter Care Teams Associate Doctor Relationship Specialty Start Date End Date Yolanda Priest MD [address] [place] [phone] PCP - General Family Medicine 01/10/17 King Orlando, DouglasD [address] [place] [address] [phone] Pharmacist Internal Medicine 10/02/23 documented as of this encounter
--- OUTSIDE RECORDS SUMMARY | 2024-11-24 15:43 | XMS_ITS | Encounter Summary ---
Author Organization [employer] Address [address] [facility] 7t [place] [address] Care Team Providers Care Beater Out Name Role Phone Yolanda Priest MD Primary Care Provider + King Orlando PharmD Unavailable [phone] Encounter Details Date Type Department Care Team (Late Contact Info) Description 11/27/2022 Orders Only [facility] [address] [place], [place] [phone] Yolanda Priest MD 230 [place], [place] [phone] Uncontrolled type 2 diabetes mellitus with hyperglycemia [...] Description 12/07/2024 2:00 PM EDT Medication Management [facility] 230 [place] [address] King Orlando, PharmJanelle 230 [place] [address] 02/18/2025 3:00 PM EDT Office Visit [facility] [address] [place] [address] Megan, Tana [address] [place] [address] 04/19/2025 1:00 PM EDT Office Visit [facility] [address] [place] [address] Marek, Reyna, OD 230 [place] [address] documented as of this encounter Visit Diagnoses Diagnosis Uncontrolled type 2 diabetes mellitus with hyperglycemia (CMS/[facility])- Primary documented in this encounter Additional Health Concerns Assessment Noted Time PHQ-9 Depression Total Score: 7 11/09/19 23 10:16 AM EDT documented as of this encounter Care Teams Beater Out Relationship Specialty Start Date End Date Yolanda Priest MD [address] [place] [phone] PCP - General Family Medicine 01/10/17 King Orlando, Aditi [address] [place] [address] Pharmacist Internal Medicine 10/02/23 documented as of this encounter
--- OUTSIDE RECORDS SUMMARY | 2024-11-24 15:43 | XMS_ITS | Clinical Summary ---
Author Organization [employer] Address [address] [facility] 7t [place] [address] Care Team Providers Care Project Estimator Name Role Phone Yolanda Priest MD Primary Care Provider + King Orlando PharmD Unavailable [phone] Allergies No known active allergies Medications melatonin [...] 2023 Active ergocalciferol (Vitamin D2) 1.25 MG (82764 UT) capsuleIndications:Pur e hypercholesterolemia TAKE 1 CAPSULE [...] 2 each 5 2024 Active Continuous Glucose Household Coordinator (FreeStyle Mitch 3 [place]) deviceIndications:Type 2 diabetes mellitus with chronic kidney disease, with long-term current use of insulin, unspecified CKD stage (CMS/HCC) 1 Device Use as directed. Use to check BG as directed 1 each 2024 Active ezetimibe (Zetia) 10 MG tabletIndications:Type [...] TIMES DAILY 100 each 5 2024 Active Senna-Time 8.6 MG tablet TAKE [...] CKD stage (CMS/HCC) Inject 4 units subcutaneously twice daily before lunch and dinner. 15 mL 3 2024 Active insulin degludec (Tresiba) 100 UNIT/ML injectionIndications:T ype 2 diabetes mellitus with chronic kidney disease, with long-term current use of insulin, unspecified CKD stage (CMS/HCC),Uncontrolled type 2 diabetes mellitus with hyperglycemia (CMS/HCC) Inject 20 units under the skin once daily 15 mL 5 2024 Active insulin degludec (Tresiba) 100 UNIT/ML injectionIndications:U ncontrolled type 2 diabetes mellitus with hyperglycemia (CMS/HCC) Inject 16 units under the skin once daily 11/10 Discontinued( Reorder (will not trigger notification to Pharmacy)) bismuth subsalicylate (Pepto Bismol) 262 MG chewable tablet CHEW 2 TABLETS 4 TIMES A DAY FOR 14 DAYS 11/09 Discontinued( Med list cleanup (will not trigger notification to Pharmacy)) doxycycline (Vibramycin) 100 MG capsule Take 1 capsule by mouth 2 times daily. 11/09 Discontinued( Med list cleanup (will not trigger notification to Pharmacy)) metroNIDAZOLE (Flagyl) 500 MG tablet Take 2 tablets by mouth 2 times daily. 11/09 Discontinued( Med list cleanup (will not trigger notification to Pharmacy)) insulin aspart (NovoLOG FLEXPEN) 100 UNIT/ML penIndications:Type 2 diabetes mellitus with chronic kidney disease, with long-term current use of insulin, unspecified CKD stage (CMS/HCC) Inject 4 units subcutaneously once daily before largest meal of the day. 15 mL 3 11/10 Discontinued( Reorder (will not trigger notification to Pharmacy)) Active [...] and they have leasing contract. Refer to [facility] to help her with rent applications [...] as tolerated. FU in 3-4 months w pa, earlier with [facility] clinic. Assessment & Plan [...] uncontrolled., pt will fu with endo at [facility] next week. pt to bring glucometer to pharmacy vs order new glucometer continue lantus 40 units + Humalog TID ac meals + po medications. FU with me in 3 months Assessment & Plan (11/08/2022 10:55 AM EDT): Uncontrolled. Increase lantus to 40 units, no change in other medications FU with me in 4 weeks. refer to motor vehicle light assembler and reminded pt to be complaint with [...] Encounters Date Type Department Care Team Description 11/09/2024 Travel 11/02/2024 Orders Only [facility] [address] [facility] [place] [address] Yolanda Priest MD 10/28/2024 Telephone [facility] [address] [place] [address] Reyna Jara, OD 10/26/2024 Telephone [facility] [address] [facility] [place] [address] Yolanda Priest MD 10/26/2024 Telephone [facility] [address] [facility] [place] [address] Yolanda Priest MD Appointment Request 10/15/2024 2:00 PM EDT Office Visit [facility] [address] [place] [address] Reyna Jara, OD Both eyes affected by mild nonproliferative diabetic retinopathy with macular edema, associated with type 2 diabetes mellitus (CMS/HCC) (Primary Dx); White without pressure of peripheral retina of left eye; Combined forms of age-related cataract of both eyes 10/15/2024 Travel 10/12/2024 Travel 10/04/2024 Refill [facility] [address] [facility] [place] [address] King Orlando, PharmD Uncontrolled type 2 diabetes mellitus with hyperglycemia ([facility]) 09/04/2024 Orders Only [facility] External Provider, [facility] 09/01/2024 Telephone [facility] [address] [place] [address] Yolanda Priest MD Prior Authorization 09/01/2024 Telephone [facility] [address] [place] [address] Yolanda Priest MD Med Refill from Last 3 Months Immunizations Name Administration [...] Description 12/07/2024 2:00 PM EDT Medication Management [facility] [address] [place] [address] King Orlando, PharmD [address] [place] [address] 02/18/2025 3:00 PM EDT Office Visit [facility]ULT [facility] [address] [place] [address] Megan, Tana [address] [place] [address] 04/19/2025 1:00 PM EDT Office Visit [facility] [address] [place] [address] Marek, Reyna, OD [address] [place] [address] Health Maintenance Due Date Last Done Comments CT Colonography 1960 Colonoscopy 1960 FIT 1960 FOBT 1960 Sigmoidoscopy 1960 HPV/Cotest 11/17/1989 COVID-19 Vaccine ( season) 2024 06/29/2022, 12/01/2021, 12/07/2020, Additional history exists Dental Oral Exam 05/22/2024 11/20/2023 Dental Prophylaxis 06/13/2024 12/11/2023 Mammogram 2024 11/19/2023, 10/27, 11/14/2022, Additional history exists Dental X-Ray: Bitewings 11/20/2024 11/20/2023 SDOH Screening 11/25/2024 11/26/2023 Diabetes: Foot Exam 01/09/2025 01/10/2024, 01/10/2024, 01/10/2024, Additional history exists Diabetes: Hemoglobin A1C 01/12/2025 03/2 025, 05/27/2024, 02/24/2024, Additional history exists Alcohol/Substance Use Screening 02/23/2025 02/24/2024 Depression Screening 02/23/2025 02/24/2024, 02/24/20 Eye Exam 10/15/2025 10/15/2024, 09/27, 10/15/2024, Additional history exists Tobacco Screening 10/26/2025 10/26/2024 Lipid Panel 11/02/2025 11/02/2024, 01/27, 11/29/2023, Additional history exists Colorectal Cancer Screening 03/05/2026 FIT DNA/Cologuard 03/05/2026 03/05/2023 Dental X-Ray: Full Mouth 11/20/2026 11/20/2023 Cervical Cancer Screening 06/12/2027 Pap Smear 06/12/2027 06/12/2024 DTaP/Tdap/Td Vaccines (2 - Td or Tdap) 08/21/2027 08/21/2017 Pneumococcal Vaccine: 50+ Years Completed 02/18/2023, 06/24/2018 Zoster Vaccines Completed 04/22/2023, 02/18/2023 Hepatitis C Screening Completed 05/23/2023 RSV Patients [...] Blood Pressure 118/60(2024 1:58 PM EDT) No iKng Orlando, PharmD Hemoglobin A1c < 7 Result Component 10.5(10/13/19 2:52 PM EDT) No King Orlando PharmD Procedures Procedure Name Priority Date/Time Associated Diagnosis Comments VITAMIN D 25-OH (D2 AND D3) Routine 11/02/2024 11:38 AM EDT LIPASE Routine 11/02/2024 11:38 AM EDT LIPID PANEL, STANDARD Routine 11/02/2024 11:38 AM EDT HEPATIC FUNCTION PANEL Routine 11/02/2024 11:38 AM EDT OCT, RETINA - OU - BOTH EYES Routine 10/15/2024 2:00 PM EDT Both eyes affected by mild nonproliferative diabetic retinopathy with macular edema, associated with type 2 diabetes mellitus (CMS/HCC) POCT GLYCATED HEMOGLOBIN, TOTAL Routine 10/12/2024 2:52 PM EDT Type 2 diabetes mellitus with chronic kidney disease, with long-term current use of insulin, unspecified CKD stage (CMS/[facility]) FL UPPER GI W BARIUM SWALLOW Routine 09/04/2024 7:50 AM EST PAP SMEAR Routine 06/12/2024 10:17 AM EST Encounter for cervical Pap smear with pelvic exam PROPHYLAXIS - ADULT Routine 12/11/2023 1 0:00 [...] PM EDT Encounter for preventive health examination LAB COLOGUARD?? COLON CANCER SCREEN Routine 03/05/2023 2:15 PM EDT from Last 3 Months or Most Recently Relevant to Health Maintenance Results * VITAMIN D 25-OH (D2 AND D3) (11/02/2024 11:38 AM EDT) Vitamin D, 25-OH, D2 16 ng/mL [facility] Comment:This test was develo ped and its analytical performancecharacteristics have been determined by [employer] [place], [place]. It hasnot been cleared or approved by the U.S. Food and DrugAdministration. This assay has been validated pursuantto the CLIA regulations and is used for clinicalpurposes.THIS TEST WAS PERFORMED AT:[employer] [id number] [place] [address]KTAEJSCLOIDA DEMARCO MD,PHD Vitamin D, 25-OH, D3 14 ng/mL [facility] Comment:This test was develo ped and its analytical performancecharacteristics have been determined by [place]. It hasnot been cleared or approved by the U.S. Food and DrugAdministration. This assay has been validated pursuantto the CLIA regulations and is used for clinicalpurposes. Vitamin D, 25-OH, Total 30 30 - 100 ng/mL [facility] Comment:Vitamin D, 25-Hydrox y reports concentrations of twocommon forms, 25-OHD2 and 25-OHD3. 25-OHD3 indicatesboth endogenous production and supplementation.25-OHD2 is an indicator of exogenous sources such asdiet or supplementation. Therapy is based onmeasurement of Total 25-OHD, with levels <20 ng/mLindicative of Vitamin D deficiency, while levelsbetween 20 ng/mL and 30 ng/mL suggest insufficiency.Optimal levels are > or = 30 ng/mL.For additional information, please refer [email or web address].[email or web address]/[email or web address](This link is being provided for informational/educational purposes only.) 11/02/2024 11:3 8 AM EDT 11/02/2024 1:04 PM EDT us Generic External Data Provider LAB BLOOD ORDERAB LES Final Result Performing Organization Address City/[facility]/ZIP Co de Phone Number [facility] [address] [place] [phone] * Lipase (11/02/2024 11:38 AM EDT) Pathologist [facility] Lipase 40 8 - 78 U/L [facility] 11/02/2024 11:3 8 AM EDT 11/02/2024 1:04 PM EDT us Generic External Data Provider LAB BLOOD ORDERAB LES Final Result Performing Organization Address [facility]/[place] Co de Phone Number [facility] [address] [place] [phone] * Hepatic Function Panel (11/02/2024 11:38 AM EDT) Pathologist [facility] Bilirubin, Total 0.4 0.0 - 1.0 mg/dL [facility] Bilirubin, Direct 0.1 0.0 - 0.5 mg/dL [facility] Aspartate Amino Transferase 22 5 - 31 U/L [facility] Alanine Aminotransferase 20 0 - 31 U/L [facility] Total Protein 8.0 6.5 - 8.0 g/dL [facility] Albumin Level 4.2 3.5 - 5.0 g/dL [facility] Alkaline Phosphatase 85 39 - 117 U/L [facility] 11/02/2024 11:3 8 AM EDT 11/02/2024 1:04 PM EDT Yolanda Priest MD LAB BLOOD ORDERABLES Fin al Result Performing Organization Address [facility]/ZIP Co de Phone Number [facility] [address] [place] [phone] * (ABNORMAL) Lipid Panel, Standard (11/02/2024 11:38 AM EDT) Triglycerides 136 <150 mg/dL [facility] Comment:Desirable Triglyceri de: less than 150 mg/dLBorderline High Triglyceride 150-199 mg/dLHigh Triglyceride: 200-499 mg/dLVery High Triglyceride: greater than or equal to 5OO mg/dL Cholesterol 197 <200 mg/dL [facility] Comment:Desirable Cholestero l: less than 200 mg/dLBorderline High Cholesterol: 200-239 mg/dLHigh Cholesterol: greater than 239 mg/dL LDL Cholesterol Calculated 118(H) <100 mg/dL [facility] Comment:Desirable LDL: less than 100 mg/dLNear Optimal/Above Optimal LDL: 110- 129 mg/dLBorderline High LDL: 130-159 mg/dLHigh LDL: 160-189 mg/dLVery High LDL: greater than or equal to 190 mg/dL HDL Cholesterol 52 >40 mg/dL [facility] Comment:Desirable HDL: great er than 40 mg/dL Note: This HDL assay may give artificially low results in patients with liver disease. 11/02/2024 11:3 8 AM EDT 11/02/2024 1:04 PM EDT us Yolanda Priest MD LAB BLOOD ORDERABLES Fin al Result [facility] [address] [place] [phone] * OCT, Retina - OU - Both [...] - 6.0 % QC Media Lot # [id number] Lot# Expiration Date 05,026 Blood 10/12/2024 2:52 PM EDT us Yolanda Priest MD POINT OF CARE TEST ENTER /EDIT ORDERABLES Final Result * FL Upper GI w/Barium Swallow (09/04/2024 7:50 AM EST) Anatomical Region Laterality Modality Body Radiographic Kalyani ging 09/04/2024 7:50 AM EST Narrative 09/04/2024 5:00 PM EST ? [facility] ?[address] ?[place] [address] ? Fluoroscopy Report ? Signed ? Patient: Alice Amin ?MR#: [id number] ?? [id number] ? : 1960 ?Acct:[id number] ? Age/Sex: 63 / F ?ADM Date: 09/04/24 ? Loc: HO.XRAY ? Attending Dr: Emmy Clark MATHEMATICAL STATISTICIAN-BC ? Ordering Physician: Emmy Clark MATHEMATICAL STATISTICIAN-BC ?? Date of Service: 09/04/24 ?? Procedure(s): FL upper GI w Ba Swallow ?? Accession Number(s): [id number] ? cc: Yolanda Priest MD; Emmy Clark MATHEMATICAL STATISTICIAN-BC ? EXAMINATION: ?? XR FLUOROSCOPY UPPER GI [...] DD/ 0750 ? TD/TT: 09/04/24 0813 ? Patient Access Associate: ? Procedure Note Donotuseinterpreter, Image - 09/04/[address] [address] Fluoroscopy Report Signed Patient: Alice Amin [facility]#: [id number] : 1960Acct:[id number] Age/Sex: 63 / FADM Date: 09/04/24 Loc: HO.XRAY Attending Dr: Emmy AGUILAR Ordering Physician: Emmy Clark Date of Service: 09/04/24 Procedure(s): FL upper GI w Ba Swallow Accession Number(s): [id number] cc: Yolanda Priest MD; Emmy Clark EXAMINATION: XR FLUOROSCOPY UPPER GI WITH AIR [...] 09/04/24 1700 DD/ 0750 TD/TT: 09/04/24 0813 Patient Access Associate: [facility] External Provider IMG FLU OROSCOPY PROCEDURES Final Result * Pap Smear (06/12/2024 10:17 AM EST) Swab 06/12/2024 10:1 7 AM EST 06/12/2024 1:50 PM EST [facility] - 07/01/2024 7:48 AM EST ----- ------- Name: Alice Amin ? Age/Sex: 63/F ? : 1960 Unit#: [id number] ?? Attend Dr: Yolanda Priest MD ?Re06/12/24 ?Status: DEP REF ? Location: HO.HHCLNP ? Disch: ? ----- ------- SPEC : [id number] ?RECD: 06/12/24 ? STATUS: ??SOUT ? REQ NUM: [id number] ? ANTONIETA: 06/12/24-1017 ? SUBM DR: Yolanda Priest MD ? ENTERED: ??06/12/24 ?SP TYPE: Pap Smr ?OTHR DR: ? ORDERED: ??Pap Smear ? Interpretation ?? [...] Priest MD LAB CYTOLOGY ORDERABLES Final Result [facility] [address] [place] [phone] [phone] * BI Mammogram Screening Tomosynthesis Bilateral (11/19/2023 2:27 PM EDT) Anatomical Region Laterality Modality Breast Bilateral Mammography 11/19/2023 2:27 PM EDT Narrative 12/05/2023 12:56 PM EDT ? [facility] ? [address] ?[place] [address] ? Mammography Report ? Signed ? Patient: Carolyn Haim,Alice M ?MR#: [id number] ?? [id number] ? : 1960 ?Acct:[id number] ? Age/Sex: 63 / F ?ADM Date: 11/19/23 ? Loc: HO.MAMMO ? Attending Dr: Yolanda Priest MD ? Ordering Physician: Yolanda Priest MD ?Results: 2Be ?? nign Findings ? Date of Service: 11/19/23 ?Follow Up: 1 Year From Orig ?? inal Mammogram ? Procedure(s): MM tomosynthesis screening BI ?? Accession Number(s): [id number] ? cc: Yolanda Priest MD ? EXAMINATION: [...] 1252 ? DD/ 1427 ? TD/TT: ? Patient Access Associate: ? Procedure Note Saranya, Angeline - 12/05/2023 [facility] [address] [place] [address] Mammography Report Signed Patient: Alice Amin [facility]#: [id number] : 1960Acct:[id number] Age/Sex: 63 / FADM Date: 11/19/23 Loc: HO.MAMMO Attending Dr: Yolanda Priest MD Ordering Physician: Yolanda Priest MDResults: 2Be nign Findings Date of Service: 11/19/23Follow Up: 1 Year From Orig inal Mammogram Procedure(s): MM tomosynthesis screening BI Accession Number(s): [id number] cc: Yolanda Priest MD EXAMINATION: MM SCREENING [...] in OV> 12/05/23 1252 DD/ 1427 TD/TT: Patient Access Associate: Yolanda Priest MD IMG BI PROCEDURES Final Result * Hepatitis Panel, General (05/23/2023 2:35 PM EDT) Hepatitis A IgM Nonreactive Nonreactive [facility] Comment:IgM antibodies to BROOKS V not detected; does not exclude earlyacute or recovered HAV infection. ~Hepatitis B Surface Antibody NONREACTIVE Nonreactive [facility] Comment:Nonreactive: < 8.00 mIU/mL Hepatitis B Core Antibody Nonreactive Nonreactive [facility] Hepatitis C Antibody Nonreactive Nonreactive [facility] Comment:Antibodies to HCV no t detected; does not exclude early acuteHCV infection. Hepatitis B Surface Ag Negative Negative [facility] Blood 05/23/2023 2:35 PM EDT 05/23/2023 4:01 PM EDT Yolanda Priest MD LAB BLOOD ORDERABLES Fin al Result [facility] [address] [place] [address] [phone] * Cologuard?? colon cancer screening (03/05/2023 2:15 PM EDT) Cologuard Cancer Screen Negative [employer] (CLIA #:[id number]) Stool Anal structure / Unknown 03/05/2023 2:15 PM EDT Yolanda Priest MD LAB MOLECULAR DIAGNOSTIC S ORDERABLES Final Result [employer] (CLIA #:[id number]) [place] [address], [place] [phone] from Last 3 Months or Most Recently Relevant to Health Maintenance Insurance [employer] CARE < 65 [place] [id number] [employer]ARE < 65 [place] [id number] DENTAL - [facility] Care Teams Project Estimator Relationship Specialty Start Date End Date Yolanda Priest MD [address] [place] [address] PCP - General Family Medicine 01/10/17 King Orlando, DouglasD [address] [place] [address] Pharmacist Internal Medicine 10/02/23
--- OUTSIDE RECORDS SUMMARY | 2024-11-24 15:43 | XMS_ITS | Encounter Summary ---
Author Organization [employer] Address [address] [facility] 7t [place] [address] Care Team Providers Care Line Mechanic Name Role Phone Yolanda Priest MD Primary Care Provider + King Orlando PharmD Unavailable [phone] Reason for Visit * Reason Onset Date Comments Appointment Request 10/26/2024 Encounter Details Date Type Department Care Team ([facility] st Contact Info) Description 10/26/2024 Telephone [facility] [address] [place], [place] [phone] Yolanda Priest MD [address] [place], [place] [phone] Appointment Request Social History Tobacco Use Types [...] with others, in a hotel, in a prison, living outside on the street, on a [...] Description 12/07/2024 2:00 PM EDT Medication Management [facility] [address] [place] [address] King Orlando, PharmD [address] [place] [address] 02/18/2025 3:00 PM EDT Office Visit [facility] ADULT DENTAL [address] [place] [address] Tana Guzman [address] [place] [address] 04/19/2025 1:00 PM EDT Office Visit [facility] OPTOM[facility]RY [address] [place], [place] [phone] Reyna Jara, OD [address] [place] [address] documented as of this encounter Goals Goal [...] documented as of this encounter Care Teams Line Mechanic Relationship Specialty Start Date End Date Yolanda Priest MD [address] [place] [address] PCP - General Family Medicine 01/10/17 King Orlando PharmD [address] [place] [address] Pharmacist Internal Medicine 10/02/23 documented as of this encounter
== END 2024-11-24 13:39 | disposition home or self-care (01) ==
LOC: HO.MAMMO 13:38
PROVIDERS: PCP Internal Medicine; Visit Provider Internal Medicine
DX: Z12.31 Encounter for screening mammogram for malignant neoplasm of breast (principal)
CPT/HCPCS: 77063; 77067

== ENCOUNTER → 2024-11-24 14:00 | Outpatient (BNV) | payer OTHER, SELFPAY | PROVIDERS: PCP Internal Medicine; Visit Provider Internal Medicine | DX: Z12.31 Encounter for screening mammogram for malignant neoplasm of breast (principal) | CPT/HCPCS: 77063; 77067 ==

== ENCOUNTER 2024-12-02 10:11 | Outpatient (AMB) | payer OTHER, SELFPAY ==
--- NOTE | 2024-12-02 10:26 | MHC.OFFVIS ---
Vital Signs 12/02/24 10:27 Height 5 ft 4 in Weight 132 lb BMI 22.7 BP 128/58 L Blood Pressure Location Rt brachial Position Sitting Pulse 88 Pulse Source Pulse Oximeter Pulse Oximetry (%) 99 Oxygen Delivery Method Room Air Intake Visit Reasons: 10 WKS F/U Intake Note: ESTABLISHED PATIENT for mgmt of dysphagia + GERD. Chief Complaint; Pt denies any GI sx or concerns at this time. Medications are still effective for tx of sx. Heavy Mobile Equipment Operator Required: Yes Heavy Mobile Equipment Operator Services: Heavy Mobile Equipment Operator Present Heavy Mobile Equipment Operator Name: Santiago [id number] + [facility] Accompanied by: Self / Same As Patient Allergies No Known Allergies [No Known Allergies*] Allergy (Verified 12/02/24 10:37) HPI HPI 10 WKS F/U: Details: LAST VISIT: GERD (gastroesophageal reflux disease) Dysphagia Postprandial epigastric pain Postprandial abdominal bloating History of Helicobacter pylori infection Constipation Plan Will check for H pylori and treat empirically is positive. Patient should be sent for upper endoscopy to re-evaluate. Continue with PPI after breath test. Patient reports occasional constipation may take senna 2 tablets daily. Increase fluid intake and activity to promote better bowel motility. Patient was encouraged to avoid dietary triggers and late night snacking. Staying upright for minimum 3 hours after meals discussed patient. Follow-up in 10 weeks, sooner on as needed basis. Patient is agreeable to this plan and verbalizes understanding of instructions. She was given the opportunity to ask questions and all questions answered. ? Thank you for allowing me to participate in her care Orders Orders H Pylori Breath Test 09/18/24 K21.9 Medications New famotidine (Pepcid) 20 mg PO BID 30 tabs 3RF K29.70 sennosides (Natural Senna Laxative) 17.2 mg (2 x 8.6 mg) PO BEDTIME 180 tabs 3RF constipation K59.00 TODAY'S VISIT: Patient is here today for follow-up. Patient reports that she has been doing better since last seen. Diagnosed with H pylori last visit and was treated with antibiotics for 2 weeks. Patient reports that she was able to finish all of her antibiotics. After she finished antibiotics she continues to take pantoprazole in the morning and famotidine at bedtime. Patient reports that her symptoms are suppressed at this time. Denies any acid reflux epigastric pain, dyspepsia, dysphagia or odynophagia. Nose that she is moving her bowels better now that she is taking Senokot. Patient denies melena or hematochezia. Denies any abdominal pain or discomfort. Denies abdominal bloating. Patient reports to have more appetite now that she feels better. [facility] Medical History Encounter for colorectal cancer screening using Cologuard test Depression Peripheral neuropathy Asthma Back pain Arthritis Hypercholesterolemia Diabetes mellitus Surgical History Hx of cholecystectomy (~2021) H/O tubal ligation Family History Father Lung cancer Prostate cancer Emphysema lung Social History Household Members: Family and Children Housing: Apartment Do you presently have visiting nurse or other home services: No Unable to assess alcohol history related to: Unknown Alcohol intake: never Patient Tobacco Use Status: Never used Tobacco e-Cigarette/Vaping Use: Never Used Second Hand Smoke Exposure: Yes service: No Current occupational status: retired Current occupation: rt handed Review of Systems Const Denies weight gain and Denies weight loss ENT Reports no additional complaints, Denies dysphagia and Denies odynophagia Card Reports no additional complaints Resp Reports no additional complaints GI Denies abdominal pain, Denies belching, Denies melena, Denies bloating, Denies change in bowel habits, Denies dysphagia, Denies excessive flatus, Denies dyspepsia, Denies heartburn, Denies diarrhea, Denies loose stools, Denies nausea, Denies odynophagia and Denies vomiting Musc Reports no additional complaints Neuro Reports no additional complaints Psych Reports no additional complaints Endo Reports no additional complaints Physical Exam Vital Signs: Last Vital Signs Pulse 88 12/02/24 10:27 BP 128/58 L 12/02/24 10:27 Pulse Ox 99 12/02/24 10:27 Oxygen Delivery Method Room Air 12/02/24 10:27 BMI result Body Mass Index 22.7 Const General: healthy appearing, no acute distress and well developed Nutritional Appearance: well nourished Orientation/consciousness: patient oriented x3 Resp Effort & Inspection: normal respiratory effort, able to speak in complete sentences, no tracheal deviation and symmetric chest movement Auscultation: clear to auscultation bilaterally Cardio Rate: regular rate GI Inspection: Yes normal to inspection and No distended Palpation (GI): Soft to palpation, not firm, nontender and No hepatosplenomegaly present Auscultation: normal bowel sounds General: Yes no CVA tenderness Back/Spine/Pelvis Back: no CVA tenderness Skin General skin exam: elasticity normal, turgor normal and dry skin Neuro General: patient oriented x3 Psych Appearance: grossly normal Mental Status: mental status grossly normal Assessment & Plan Assessment & Plan (1) GERD (gastroesophageal reflux disease): Code(s): K21.9 - Gastro-esophageal reflux disease without esophagitis Qualifiers: Esophagitis presence: esophagitis presence not specified Qualified Code(s): K21.9 - Gastro-esophageal reflux disease without esophagitis (2) Dysphagia: Code(s): R13.10 - Dysphagia, unspecified Qualifiers: Dysphagia type: pharyngoesophageal phase Qualified Code(s): R13.14 - Dysphagia, pharyngoesophageal phase (3) Postprandial epigastric pain: Code(s): R10.13 - Epigastric pain (4) Postprandial abdominal bloating: Code(s): R14.0 - Abdominal distension (gaseous) (5) History of Helicobacter pylori infection: Code(s): Z86.19 - Personal history of other infectious and parasitic diseases (6) Constipation: Code(s): K59.00 - Constipation, unspecified Plan Patient will continue taking pantoprazole in the morning and famotidine at bedtime. At this time patient reports that her symptoms are completely controlled as she can completed successfully treatment for H pylori. Will repeat H pylori to check for eradication of the bacteria when she returns to the office next visit. Patient will take Senokot daily. Increase fluid intake and activity to promote better bowel motility. Patient was also instructed to avoid dietary triggers and late night snacking. Staying upright for minimum 3 hours after meals discussed with patient. Patient will return in 3 months, sooner on as needed basis. She is agreeable to this plan and verbalizes understanding of instructions. She was given the opportunity to ask questions and all questions answered. Thank you for allowing me to participate in her care Medications: Refilled pantoprazole take one tablet half an hour before breakfast 40 mg PO DAILY 90 tabs 2RF K21.9 - Gastro-esophageal reflux disease without esophagitis sennosides (Natural Senna Laxative) 17.2 mg (2 x 8.6 mg) PO BEDTIME 180 tabs 3RF constipation K59.00 - Constipation, unspecified famotidine 20 mg PO BEDTIME 90 tabs 3RF 90 days K21.9 - Gastro-esophageal reflux disease without esophagitis Coding Level of Care Code Est Pt Level 3 (04238) Diagnoses Gastroesophageal reflux disease, unspecified whether esophagitis present K21.9 Esophagitis presence: esophagitis presence not specified Pharyngoesophageal dysphagia R13.14 Dysphagia type: pharyngoesophageal phase Postprandial epigastric pain R10.13 Postprandial abdominal bloating R14.0 History of Helicobacter pylori infection Z86.19 Constipation K59.00 Time Spent (min) 25 Comment 15 minutes spent with patient and additional 10 minutes spent reviewing her records
[2024-12-02 10:27] VITALS: BP 128/58; PULSE 88; O2SAT 99; BMI 22.7
--- OUTSIDE RECORDS SUMMARY | 2024-12-02 11:26 | XMS_ITS | Encounter Summary ---
Author Organization [employer] Address [address] [facility] [address] [place] [address] Care Team Providers Care Cocoa Mill Operator Name Role Phone Yolanda Priest MD Primary Care Provider + King Orlando PharmD Unavailable [phone] Encounter Details Date Type Department Care Team (Late st Contact Info) Description 02/22/2023 Orders Only [facility] MEDICINE [address] [place], [place] [phone] Alice Jennings LPN Social History Tobacco Use [...] Description 12/07/2024 2:00 PM EDT Medication Management [facility] MEDICINE [address] [place], [place] [phone] King Orlando, PharmD [address] [place] [address] 02/18/2025 3:00 PM EDT Office Visit [facility] [address] [place] [address] Megan, Tana [address] [place] [address] 04/19/2025 1:00 PM EDT Office Visit [facility] OPTOMETRY [address] [place] [address] Marek, Reyna, OD [address] [place] [address] documented as of this encounter Visit Diagnoses Not on filedocumented in this encounter Additional Health Concerns Assessment Noted Time PHQ-9 Depression Total Score: 7 11/09/19 23 10:16 AM EDT documented as of this encounter Care Teams Cocoa Mill Operator Relationship Specialty Start Date End Date Yolanda Priest MD [address] [place] [id number] PCP - General Family Medicine 01/10/17 King Orlando, DouglasD [address] [place] [phone] Pharmacist Internal Medicine 10/02/23 documented as of this encounter
--- OUTSIDE RECORDS SUMMARY | 2024-12-02 11:26 | XMS_ITS | Encounter Summary ---
Author Organization [employer] Address [address] [facility] [address] [place] [address] Care Team Providers Care Loader Operator Supervisor Name Role Phone Yolanda Priest MD Primary Care Provider + King Orlando PharmD Unavailable [phone] Reason for Visit * Reason Comments Med Refill Encounter Details Date Type Department Care Team (Late st Contact Info) Description 11/29/2024 Refill [facility] MEDICINE [address] [place], [place] [phone] Yolanda Priest MD [address] [place], [place] [phone] Type 2 diabetes mellitus with other circulatory complication, with long-term current use of insulin ([facility]) Social History Tobacco Use Types Packs/Day Years [...] Description 12/07/2024 2:00 PM EDT Medication Management [facility] MEDICINE [address] [place] [address] King Orlando, PharmD [address] [place] [address] 02/18/2025 3:00 PM EDT Office Visit [facility] ADULT DENTAL [address] [place] [address] Megan Tana [address] [place] [address] 04/19/2025 1:00 PM EDT Office Visit [facility] OPTOMETRY [address] [place] [address] Reyna Jara, OD [address] [place] [address] documented as of this encounter Goals Goal Patient Goal Type Associated Problems Recent Progress Patient-Stated? Author Blood Pressure < 140/90 Blood Pressure 118/60(2024 1:58 PM EDT) No King Orlando PharmD Hemoglobin A1c < 7 Result Component 10.5(10/13/19 2:52 PM EDT) No King Orlando PharmD documented as of this encounter Visit Diagnoses Diagnosis Type 2 diabetes mellitus with other circulatory complication, with long-term current use of insulin ([facility]) documented in this encounter Additional Health Concerns Assessment Noted Time PHQ-9 Depression Total Score: 13 024 1:39 PM EDT documented as of this encounter Care Teams Loader Operator Supervisor Relationship Specialty Start Date End Date Yolanda Priest MD [address] [place] [address] PCP - General Family Medicine 01/10/17 King Orlando PharmD [address] [place] [address] Pharmacist Internal Medicine 10/02/23 documented as of this encounter
--- OUTSIDE RECORDS SUMMARY | 2024-12-02 11:26 | XMS_ITS | Encounter Summary ---
Author Organization [email or web address] Address [address] [facility] [address] [place] [address] Care Team Providers Care Casting Plug Assembler Name Role Phone Yolanda Priest MD Primary Care Provider + King Orlando PharmD Unavailable [phone] Reason for Visit * Reason Onset Date Comments Call Back 03/01/2023 Encounter Details Date Type Department Care Team ([facility] st Contact Info) Description 03/01/2023 Telephone [facility] MEDICINE [address] [place], [place] [phone] Yolanda Priest MD [address] [place], [place] [phone] Call Back Social History Tobacco Use Types [...] PM EDT Tc from [facility] with [employer] [facility] [employer] requesting to speak with a nurse in regards to a mutual pt. She informs is in regards to a medical release form for a physical that is needed, food writer offer to transferover but she prefers to speak with a nurse but at the end I transfer her over but she still wanted me to send message. Please contact pt at [phone] documented in this encounter Plan of Treatment Upcoming Encounters Date Type Department Care Team (Late st Contact Info) Description 12/07/2024 2:00 PM EDT Medication Management [facility] MEDICINE [address] [place] [address] King Orlando, PharmD [address] [place] [address] 02/18/2025 3:00 PM EDT Office Visit [facility] ADULT DENTAL [address] [place] [address] Tana Guzman [address] [place] [address] 04/19/2025 1:00 PM EDT Office Visit [facility] OPTOMETRY [address] [place] [address] Marek, Reyna, OD [address] [place] [address] documented as of this encounter Visit Diagnoses Not on filedocumented in this encounter Additional Health Concerns Assessment Noted Time PHQ-9 Depression Total Score: 7 11/09/19 23 10:16 AM EDT documented as of this encounter Care Teams Casting Plug Assembler Relationship Specialty Start Date End Date Yolanda Priest MD [address] [place] [phone] PCP - General Family Medicine 01/10/17 King Orlando, PharmD [address] [place] [phone] Pharmacist Internal Medicine 10/02/23 documented as of this encounter
--- OUTSIDE RECORDS SUMMARY | 2024-12-02 11:26 | XMS_ITS | Clinical Summary ---
Author Organization [employer] Address 75 [facility] 7t [place] [address] Care Team Providers Care Machine Stonecutter Name Role Phone Yolanda Priest MD Primary Care Provider + King Orlando PharmD Unavailable [phone] Allergies No known active allergies Medications melatonin [...] with insulin 100 each 3 2023 Active busPIRone (Buspar) 15 MG tablet [...] 2023 Active ergocalciferol (Vitamin D2) 1.25 MG (76155 UT) capsuleIndications:Pur e hypercholesterolemia TAKE 1 CAPSULE [...] 2 each 5 2024 Active Continuous Glucose Assistant Infant Toddler Teacher (FreeStyle Mitch 3 [place]) deviceIndications:Type 2 diabetes mellitus with chronic kidney [...] once daily 15 mL 5 2024 Active metFORMIN (Glucophage) 1000 MG tabletIndications:Type 2 diabetes mellitus with other circulatory complication, with long-term current use of insulin (CMS/HCC) TAKE 1 TABLET BY MOUTH TWICE DAILY IN THE MORNING AND IN THE EVENING 60 tablet 6 2024 Active metFORMIN (Glucophage) 1000 MG tabletIndications:Type 2 diabetes mellitus with other circulatory complication, with long-term current use of insulin (CMS/HCC) TAKE 1 TABLET BY MOUTH TWICE DAILY IN THE MORNING AND IN THE EVENING 60 tablet 6 11/30 Discontinued insulin degludec (Tresiba) 100 UNIT/ML injectionIndications:U ncontrolled type 2 diabetes mellitus with hyperglycemia (CMS/HCC) Inject 16 units under the skin once daily 11/10 Discontinued( Reorder (will not trigger notification to Pharmacy)) bismuth subsalicylate (Pepto Bismol) 262 MG chewable tablet CHEW 2 TABLETS 4 TIMES A DAY FOR 14 DAYS 03/12/ 2025 04/14 /2025 Discontinued( Med list cleanup (will not trigger [...] current use of insulin, unspecified CKD stage (CMS/[facility]) Inject 4 units subcutaneously once daily before [...] and they have leasing contract. Refer to [facility] to help her with rent applications and [...] as tolerated. FU in 3-4 months w tx, earlier with [facility] clinic. Assessment & Plan [...] uncontrolled., pt will fu with endo at [facility] next week. pt to bring glucometer to pharmacy vs order new glucometer continue lantus 40 units + Humalog TID ac meals + po medications. FU with me in 3 months Assessment & Plan (11/08/2022 10:55 AM EDT): Uncontrolled. Increase lantus to 40 units, no change in other medications FU with me in 4 weeks. refer to surgical endoscopist and reminded pt to be complaint with [...] Encounters Date Type Department Care Team Description 11/29/2024 Refill [facility] [address] [place] [address] Yolanda Priest MD Type 2 diabetes mellitus with other circulatory complication, with long-term current use of insulin ([facility]) 11/09/2024 Travel 11/02/2024 Orders Only [facility] [address] [place] [address] Yolanda Priest MD 10/28/2024 Telephone [facility] [address] [place], [place] [phone] Reyna Jara OD 10/26/2024 Telephone [facility] [address] [place], [place] [phone] Yolanda Priest MD 10/26/2024 Telephone [facility] [address] [place], [place] [phone] Yolanda Priest MD Appointment Request 10/15/2024 2:00 PM EDT Office Visit [facility] [address] [place] [address] Reyna Jara, OD Both eyes affected by mild nonproliferative diabetic retinopathy with macular edema, associated with type 2 diabetes mellitus ([facility]) (Primary Dx); White without pressure of peripheral retina of left eye; Combined forms of age-related cataract of both eyes 10/15/2024 Travel 10/12/2024 Travel 10/04/2024 Refill [facility] [address] [place] [address] King Orlando, PharmD Uncontrolled type 2 diabetes mellitus with hyperglycemia ([facility]) 09/04/2024 Orders Only [facility] External Provider, [facility] from Last 3 Months Immunizations Name Administration [...] Description 12/07/2024 2:00 PM EDT Medication Management [facility] [address] [place] [address] King Orlando, PharmD [address] [place] [address] 02/18/2025 3:00 PM EDT Office Visit [facility] [address] [place] [address] Tana Guzman [address] [place] [address] 04/19/2025 1:00 PM EDT Office Visit [facility] [address] [place] [address] Marek, Reyna, OD [address] [place] [address] Health Maintenance Due Date Last Done Comments CT Colonography 1960 Colonoscopy 1959 FIT 1959 FOBT 1960 Sigmoidoscopy 1960 HPV/Cotest 11/17/1989 COVID-19 Vaccine ( season) 2024 06/29/2022, 12/01/2021, 12/07/2020, Additional history exists Dental Oral Exam 05/22/2024 11/20/2023 Dental Prophylaxis 06/13/2024 12/11/2023 Dental X-Ray: Bitewings 11/20/2024 11/20/2023 SDOH Screening 11/25/2024 11/26/2023 Diabetes: Foot Exam 01/09/2025 01/10/2024, 01/10/2024, 01/10/2024, Additional history exists Diabetes: Hemoglobin A1C 01/12/2025 03/2 025, 05/27/2024, 02/24/2024, Additional history exists Alcohol/Substance Use Screening 02/23/2025 02/24/2024 Depression Screening 02/23/2025 02/24/2024, 02/24/20 Eye Exam 10/15/2025 10/15/2024, 09/27, 10/15/2024, Additional history exists Tobacco Screening 10/26/2025 10/26/2024 Lipid Panel 11/02/2025 11/02/2024, 01/27, 11/29/2023, Additional history exists Mammogram 11/24/2025 11/24/2024, 10/28, 11/14/2022, Additional history exists Colorectal Cancer Screening 03/05/2026 [...] Procedure Name Priority Date/Time Associated Diagnosis Comments BI MAMMOGRAM SCREENING TOMOSYNTHESIS BILATERAL Routine 11/24/2024 1:45 PM EDT VITAMIN D 25-OH (D2 AND D3) Routine [...] use of insulin, unspecified CKD stage (CMS/HCC) FL UPPER GI W BARIUM SWALLOW Routine [...] ESTABLISHED PATIENT Routine 11/20/2023 3:00 PM EDT HEPATITIS PANEL, GENERAL Routine 05/23/2023 2:35 PM EDT Encounter for preventive health examination LAB COLOGUARD?? COLON CANCER SCREEN Routine 03/05/2023 2:15 PM EDT from Last 3 Months or Most Recently Relevant to Health Maintenance Results * BI Mammogram Screening Tomosynthesis Bilateral (11/24/2024 1:45 PM EDT) Anatomical Region Laterality Modality Breast Bilateral Mammography 11/24/2024 1:45 PM EDT Narrative 11/29/2024 7:07 PM EDT ? [facility] ? [address] ?[place] [address] ?[phone] ? Mammography Report ? Signed ? Patient: Alice Amin ?MR#: [id number] ?? [id number] ? : 1960 ?Acct:[id number] ? Age/Sex: 64 / F ?ADM Date: 11/24/24 ? Loc: HO.MAMMO ? Attending Dr: Yolanda Priest MD ? Ordering Physician: Yolanda Priest MD ?Results: 1Ne ?? gative ? Date of Service: 11/24/24 ?Follow Up: 1 Year From Orig ?? inal Mammogram ? Procedure(s): MM tomosynthesis screening BI ?? Accession Number(s): [id number] ? cc: Yolanda Priest MD ? EXAMINATION: ?? MM SCREENING DIGITAL BREAST TOMOSYNTHESIS, BILATERAL ? CLINICAL INFORMATION: ? Screening. Asymptomatic. ? COMPARISON: ?? Mammography: Comparison is made with available priors ? TECHNIQUE: ?? Digital breast mammography with tomosynthesis is performed in both the ?? craniocaudal and mediolateral oblique views along with computer-aided ?? detection (CAD). ? FINDINGS: ?? There are scattered areas of fibroglandular density (ACR BI-RADS breast ?? composition Category b). ? There are no significant masses, abnormal calcifications, or other ?? abnormalities. ? MM/MM tomosynthesis screening BI ?? IMPRESSION: ?? No mammographic evidence of malignancy. ? ASSESSMENT: ? BI-RADS BI-RADS 1 - Negative ? RECOMMENDATION: ?? Routine annual mammography screening. ? 1 year F/U ? This examination should not preclude the clinical evaluation of a ?? suspicious palpable abnormality. ? This patient's information was entered into a reminder system with a ?? target due date for their next mammogram. ? Electronically signed by: ??Jannet Brown DO ??11/29/2024 07:05 PM EDT ? Dictated By: ?Jannet Brown DO ? Signed By: ?<Electronically signed by Jannet Brown, DO in OV> ? 11/29/24 1905 ? DD/ 1345 ? TD/TT: 11/24/24 1400 ? Wardrobe Assistant: ? Procedure Note Angeline Beaver - 11/29/2024 [facility] [address] [place] [address] Mammography Report Signed Patient: [place] Amin MMR#: [id number] : 1960Acct:[id number] Age/Sex: 64 / FADM Date: 11/24/24 Loc: VANG[facility] Attending Dr: Yolanda Priest MD Ordering Physician: Yolanda Priestesults: 1Ne gative Date of Service: 11/24/24Follow Up: 1 Year From Orig inal Mammogram Procedure(s): MM tomosynthesis screening BI Accession Number(s): [id number] cc: Yolanda Priest MD EXAMINATION: MM SCREENING DIGITAL BREAST TOMOSYNTHESIS, BILATERAL CLINICAL INFORMATION: Screening. Asymptomatic. COMPARISON: Mammography: Comparison is made with available priors TECHNIQUE: Digital breast mammography with tomosynthesis is performed in both the craniocaudal and mediolateral oblique views along with computer-aided detection (CAD). FINDINGS: There are scattered areas of fibroglandular density (ACR BI-RADS breast composition Category b). There are no significant masses, abnormal calcifications, or other abnormalities. MM/MM tomosynthesis screening BI IMPRESSION: No mammographic evidence of malignancy. ASSESSMENT: BI-RADS BI-RADS 1 - Negative RECOMMENDATION: Routine annual mammography screening. 1 year F/U This examination should not preclude the clinical evaluation of a suspicious palpable abnormality. This patient's information was entered into a reminder system with a target due date for their next mammogram. Electronically signed by: Jannet Brown DO 11/29/2024 07:05 PM EDT Dictated By: Jannet Brown DO Signed By: <Electronically signed by Jannet Brown DO in OV> 11/29/24 1905 DD/ 1345 TD/TT: 11/24/24 1400 Wardrobe Assistant: Yolanda Priest MD IMG BI PROCEDURES Edited Result - Final * VITAMIN D 25-OH (D2 AND D3) (11/02/2024 11:38 AM EDT) Vitamin D, 25-OH, D2 16 ng/mL [facility] Comment:This test was develo ped and its analytical performancecharacteristics have been determined by [employer] [place]. It hasnot been cleared or approved by the U.S. Food and DrugAdministration. This assay has been validated pursuantto the CLIA regulations and is used for clinicalpurposes.THIS TEST WAS PERFORMED AT:[employer] [place] [address]HPVROVBLOIDA DEMARCO MD,PHD Vitamin D, 25-OH, D3 14 ng/mL [facility] Comment:This test was crystal hernandez and its analytical performancecharacteristics have been determined by [facility] [place] [place]. It hasnot been cleared or approved by the U.S. Food and DrugAdministration. This assay has been validated pursuantto the CLIA regulations and is used for clinicalpurposes. Vitamin D, 25-OH, Total 30 30 - 100 ng/mL [facility] Comment:Vitamin D, 25-Hydrox y reports [...] = 30 ng/mL.For additional information, please refer tohttp://education.Sanswire/faq/KIS024(This link is being provided for informational/educational purposes only.) 11/02/2024 11:3 8 AM EDT 11/02/2024 1:04 PM EDT us Generic External Data Provider LAB BLOOD ORDERAB LES Final Result Performing Organization Address City/[facility]/ZIP Co de Phone Number [facility] [address] [place] [phone] * Lipase (11/02/2024 11:38 AM EDT) Lipase 40 8 - 78 U/L [facility] 11/02/2024 11:3 8 AM EDT 11/02/2024 1:04 PM EDT us Generic External Data Provider LAB BLOOD ORDERAB LES Final Result Performing Organization Address [facility]/ZIP Co de Phone Number [facility] [address] [place] [address] [place] [phone] * Hepatic Function Panel (11/02/2024 11:38 AM EDT) Bilirubin, Total 0.4 0.0 - 1.0 mg/dL [facility] Bilirubin, Direct 0.1 0.0 - 0.5 mg/dL [facility] Aspartate Amino Transferase 22 5 - 31 U/L [facility] Alanine Aminotransferase 20 0 - 31 U/L [facility] Total Protein 8.0 6.5 - 8.0 g/dL [facility] Albumin Level 4.2 3.5 - 5.0 g/dL [facility] Alkaline Phosphatase 85 39 - 117 U/L [facility] 11/02/2024 11:3 8 AM EDT 11/02/2024 1:04 PM EDT us Yolanda Priset MD LAB BLOOD ORDERABLES Fin al Result [facility] [address] [place] [phone] * (ABNORMAL) Lipid Panel, Standard (11/02/2024 11:38 AM EDT) Triglycerides 136 <150 mg/dL [facility] Comment:Desirable Triglyceri de: less than 150 mg/dLBorderline High Triglyceride 150-199 mg/dLHigh Triglyceride: 200-499 mg/dLVery High Triglyceride: greater than or equal to 5OO mg/dL Cholesterol 197 <200 mg/dL [facility] Comment:Desirable Cholestero l: less than 200 mg/dLBorderline High Cholesterol: 200-239 mg/dLHigh Cholesterol: greater than 239 mg/dL LDL Cholesterol Calculated 118(H) <100 mg/dL [facility] Comment:Desirable LDL: less than 100 mg/dLNear Optimal/Above Optimal LDL: 110- 129 mg/dLBorderline High LDL: 130-159 mg/dLHigh LDL: 160-189 mg/dLVery High LDL: greater than or equal to 190 mg/dL HDL Cholesterol 52 >40 mg/dL [facility] Comment:Desirable HDL: great er than 40 mg/dL Note: This HDL assay may give artificially low results in patients with liver disease. 11/02/2024 11:3 8 AM EDT 11/02/2024 1:04 PM EDT Result [facility] Yolanda Priest MD LAB BLOOD ORDERABLES Fin al Result [facility] [address] [place] [phone] * OCT, Retina - OU - [...] retinal specialist for further evaluation and treatment. Result [facility] Reyna Jara OD OPHTH TOMOGRAPHY Final Result * (ABNORMAL) POCT HGB A1C (10/12/2024 2:52 PM EDT) Hemoglobin A1C 10.5(A) 4.0 - 6.0 % QC Media Lot # [id number] Lot# Expiration Date [id number] Blood 10/12/2024 2:52 PM EDT Result [facility] Yolanda Priest MD POINT OF CARE TEST ENTER /EDIT ORDERABLES Final Result * FL Upper GI w/Barium Swallow (09/04/2024 7:50 AM EST) Anatomical Region Laterality Modality Body Radiographic Kalyani ging 09/04/2024 7:50 AM EST Narrative 09/04/2024 5:00 PM EST ? [facility] ?[address] ?[place], [place] [address] ? Fluoroscopy Report ? Signed ? Patient: Carolyn Whitmore,Alice M ?MR#: [id number] ?? [id number] ? : 1960 ?Acct:[id number] ? Age/Sex: 63 / F ?ADM Date: 09/04/24 ? Loc: HO.XRAY ? Attending Dr: Emmy AGUILAR ? Ordering Physician: Emmy Clark ?? Date of Service: 09/04/24 ?? Procedure(s): FL upper GI w Ba Swallow ?? Accession Number(s): [id number] ? cc: Yolanda Priest MD; Emmy Clark [...] ??09/04/2024 04:57 PM EST RP ?? Workstation: [id number] ? Dictated By: ?Balaji Patel ? Signed By: ?<Electronically signed by Balaji Patel in OV> ? 09/04/24 1657 ?<Electronically signed by Jian Hull MD in OV> ? 09/04/24 1700 ? DD/ 0750 ? TD/TT: 09/04/24 0813 ? Wardrobe Assistant: ? Procedure Note Saranya, Angeline - 09/04/[address] [address] Fluoroscopy Report Signed Patient: Alice Amin [facility]#: [id number] : 1960Acct:[id number] Age/Sex: 63 / FADM Date: 09/04/24 Loc: GABI Attending Dr: Emmy Clark [employer]PER[employer] Ordering Physician: Emmy Clark Date of Service: 09/04/24 Procedure(s): FL upper GI w Ba Swallow Accession Number(s): [id number] cc: Yolanda Priest MD; Emmy Clark [facility] EXAMINATION: XR FLUOROSCOPY UPPER GI WITH AIR [...] 09/04/24 1700 DD/ 0750 TD/TT: 09/04/24 0813 Wardrobe Assistant: [employer] External Provider IMG FLU OROSCOPY PROCEDURES Final Result * Pap Smear (06/12/2024 10:17 AM EST) Swab 06/12/2024 10:1 7 AM EST 06/12/2024 1:50 PM EST [facility] - 07/01/2024 7:48 AM EST ----- ------- Name: Alice Amin ? Age/Sex: 63/F ? : 1960 Unit#: [id number] ?? Attend Dr: Yolanda Priest MD ?Re06/12/24 ?Status: DEP REF ? Location: HO.HHCLNP ? Disch: ? ----- ------- SPEC : [id number] ?RECD: 06/12/24 ? STATUS: ??SOUT ? REQ NUM: [id number] ? ANTONIETA: 06/12/24-7 ? SUBM DR: Yolanda Priest MD ? [...] ThinPrep-Cervical ----- ------- Signed (signature on file) Андрей WarrenKATRIN babb ([facility]) 07/01/24 0748 ? ----- ------- ? END OF REPORT ? Yolanda Priest MD LAB CYTOLOGY ORDERABLES Final Result Performing Organization Address [facility] de Phone Number [facility] [address] [place] [phone] * Hepatitis Panel, General (05/23/2023 2:35 PM EDT) Pathologist [facility] Hepatitis A IgM Nonreactive Nonreactive [facility] Comment:IgM antibodies to BROOKS V not detected; does not exclude earlyacute or recovered HAV infection. ~Hepatitis B Surface Antibody NONREACTIVE Nonreactive [facility] Comment:Nonreactive: < 8.00 mIU/mL Hepatitis B Core Antibody Nonreactive Nonreactive [facility] Hepatitis C Antibody Nonreactive Nonreactive [facility] Comment:Antibodies to HCV no t detected; does not exclude early acuteHCV infection. Hepatitis B Surface Ag Negative Negative [facility] Blood 05/23/2023 2:35 PM EDT 05/23/2023 4:01 PM EDT Yolanda Priest MD LAB BLOOD ORDERABLES Fin al Result Performing Organization Address [facility] Co de Phone Number [facility] [address] [place] [phone] * Cologuard?? colon cancer screening (03/05/2023 2:15 PM EDT) Cologuard Cancer Screen Negative [employer] (CLIA #:[id number]) Stool Anal structure / Unknown 03/05/2023 2:15 PM EDT Yolanda Priest MD LAB MOLECULAR DIAGNOSTIC S ORDERABLES Final Result [employer] (CLIA #:[id number]) [place] [address] [address], [place] [phone] from Last 3 Months or Most Recently Relevant to Health Maintenance Insurance CCA ONE CARE < 65 CCA ONE CARE < 65 KE[place]U PALOMARES [id number] DENTAL - [facility] Care Teams Machine Stonecutter Relationship Specialty Start Date End Date Yolanda Priest MD [address] [place] [address] PCP - General Family Medicine 01/10/17 King Orlando, DouglasD [address] [place] [address] Pharmacist Internal Medicine 10/02/23
--- OUTSIDE RECORDS SUMMARY | 2024-12-02 11:26 | XMS_ITS | Encounter Summary ---
Author Organization [employer] Address 75 [facility] 7t [place] [address] Care Team Providers Care Departure Clerk Name Role Phone Yolanda Priest MD Primary Care Provider + King Orlando PharmD Unavailable [phone] Reason for Visit * Reason Onset Date Comments Appointment Request 10/26/2024 Encounter Details Date Type Department Care Team ([facility] st Contact Info) Description 10/26/2024 Telephone [facility]ICINE [address] [place], [place] [phone] Yolanda Priest MD [address] [place], [place] [phone] Appointment Request Social History Tobacco Use Types [...] Description 12/07/2024 2:00 PM EDT Medication Management [facility] [address] [place] [address] King Orlando, PharmD [address] [place] [address] 02/18/2025 3:00 PM EDT Office Visit [facility] ADULT DENTAL [address] [place] [address] Tana Guzman [address] [place] [address] 04/19/2025 1:00 PM EDT Office Visit [facility] OPTOMETRY [address] [place] [place], [place] [phone] Reyna Jara, OD [address] [place] [address] documented as of this encounter Goals Goal [...] documented as of this encounter Care Teams Departure Clerk Relationship Specialty Start Date End Date Yolanda Priest MD [address] [place] [address] PCP - General Family Medicine 01/10/17 King Orlando PharmD [address] [place] [address] Pharmacist Internal Medicine 10/02/23 documented as of this encounter
--- OUTSIDE RECORDS SUMMARY | 2024-12-02 11:26 | XMS_ITS | Encounter Summary ---
Author Organization [employer] Address 75 [facility] 7t [place] [address] Care Team Providers Care Licensing Court Magistrate Name Role Phone Yolanda Priest MD Primary Care Provider + King Orlando PharmD Unavailable [phone] Reason for Visit * Reason Comments Med Refill Encounter Details Date Type Department Care Team (Late st Contact Info) Description 05/07/2023 Refill [facility] ADULT DENTAL [address] [place], [place] [phone] Virgil Santoyo, STEVEN [address] [place], [place] [phone] Social History Tobacco Use Types Packs/Day Years [...] with others, in a hotel, in a longterm, living outside on the street, on a [...] Description 12/07/2024 2:00 PM EDT Medication Management [facility] [address] [place] [address] King Orlando, PharmD [address] [place] [address] 02/18/2025 3:00 PM EDT Office Visit [facility] [address] [place] [address] Megan Tana [address] [place] [address] 04/19/2025 1:00 PM EDT Office Visit [facility] OPTOMETRY [address] [place] [address] Reyna Jara, LUCIA [address] [place] [address] documented as of this encounter Visit Diagnoses Not on filedocumented in this encounter Additional Health Concerns Assessment Noted Time PHQ-9 Depression Total Score: 7 11/09/19 23 10:16 AM EDT documented as of this encounter Care Teams Licensing Court Magistrate Relationship Specialty Start Date End Date Yolanda Priest MD [address] [place] [address] PCP - General Family Medicine 01/10/17 King Orlando PharmD [address] [place] [address] Pharmacist Internal Medicine 10/02/23 documented as of this encounter
--- OUTSIDE RECORDS SUMMARY | 2024-12-02 11:26 | XMS_ITS | Encounter Summary ---
Author Organization [employer] Address [address] [facility] [address] [place] [address] Care Team Providers Care Fire Support Man Name Role Phone Yolanda Priest MD Primary Care Provider + King Orlando PharmD Unavailable [phone] Encounter Details Date Type Department Care Team (Late st Contact Info) Description 10/28/2024 Telephone [facility] OPTOMETRY [address] [place], [place] [phone] MarekReyna maravilla, OD [address] [place], [place] [phone] Social History Tobacco Use Types Packs/Day Years [...] MARY HAGEN Address: [facility] [address] [place] [address] documented in this encounter Plan of Treatment Upcoming Encounters Date Type Department Care Team (Late st Contact Info) Description 12/07/2024 2:00 PM EDT Medication Management [facility] MEDICINE [address] [place], [place] [phone] King Orlando, PharmD [address] [place] [address] 02/18/2025 3:00 PM EDT Office Visit [facility] ADULT DENTAL [address] [place] [address] Megan, Tana [address] [place] [address] 04/19/2025 1:00 PM EDT Office Visit [facility] OPTOMETRY [address] [place] [address] Marek, Reyna, OD [address] [place] [address] documented as of this encounter Goals Goal [...] documented as of this encounter Care Teams Fire Support Man Relationship Specialty Start Date End Date Yolanda Priest MD [address] [place] [address] PCP - General Family Medicine 01/10/17 King Orlando PharmD [address] [place] [phone] Pharmacist Internal Medicine 10/02/23 documented as of this encounter
--- OUTSIDE RECORDS SUMMARY | 2024-12-02 11:27 | XMS_ITS | Encounter Summary ---
Author Organization [employer] Address [address] [facility] 7t [place] [address] Care Team Providers Care Information Technology Coordinator Name Role Phone Yolanda Priest MD Primary Care Provider + King Orlando PharmD Unavailable [phone] Reason for Visit * Reason Onset Date Comments Appointment Request 07/03/2024 Encounter Details Date Type Department Care Team ([facility] st Contact Info) Description 07/03/2024 Telephone [facility] MEDICINE [address] [place], [place] [phone] Yolanda Priest MD [address] [place], [place] [phone] Appointment Request Social History Tobacco Use Types [...] King from 06/24. Please contact pt at [phone]. (Libyan Speaker) documented in this encounter Plan of Treatment Upcoming Encounters Date Type Department Care Team (Late st Contact Info) Description 12/07/2024 2:00 PM EDT Medication Management [facility] MEDICINE [address] [place] [address] King Orlando, PharmD [address] [place] [address] 02/18/2025 3:00 PM EDT Office Visit [facility] ADULT DENTAL [address] [place] [address] Tana Guzman [address] [place] [address] 04/19/2025 1:00 PM EDT Office Visit [facility] OPTOMETRY [address] [place], [place] [phone] Reyna Jara, OD 230 [place] [address] documented as of this encounter Goals Goal [...] documented as of this encounter Care Teams Information Technology Coordinator Relationship Specialty Start Date End Date Yolanda Priest MD [address] [place] [address] PCP - General Family Medicine 01/10/17 King Orlando PharmD [address] [place] [address] Pharmacist Internal Medicine 10/02/23 documented as of this encounter
--- OUTSIDE RECORDS SUMMARY | 2024-12-02 11:27 | XMS_ITS | Encounter Summary ---
Author Organization [employer] Address [address] [employer] 7t [place] [address] Care Team Providers Care Farm General Manager Name Role Phone Yolanda Priest MD Primary Care Provider + King Orlando PharmD Unavailable [phone] Reason for Visit * Reason Onset Date Comments Med Refill 09/01/2024 Encounter Details Date Type Department Care Team (Late st Contact Info) Description 09/01/2024 Telephone [facility] MEDICINE [address] [place], [place] [phone] Yolanda Priest MD 230 [place], [place] [phone] Med Refill Social History Tobacco Use Types [...] with others, in a hotel, in a [place] [facility] [place], living outside on the street, on a [...] 09/01/2024 9:33 AM EST Medication sent to [facility] Pharmacy 07/17/24 #30 with 11 refills. * Telephone Encounter - Dez Porter - 09/01/2024 8:55 AM EST TC from pt requesting medication refill. Medications needing refill : Continuous Glucose Sensor (FreeStyle Mitch 3 Plus Sensor) [facility] glipiZIDE XL (Glucotrol XL) 10 MG 24 hr tablet To be sent to: [facility] - [place], [place] - [address] documented in this encounter Plan of Treatment Upcoming Encounters Date Type Department Care Team (Late st Contact Info) Description 12/07/2024 2:00 PM EDT Medication Management [facility] MEDICINE [address] [place] [address] King Orlando PharmD 230 [place] [address] 02/18/2025 3:00 PM EDT Office Visit [facility] ADULT DENTAL [address] [place] [address] Megan, Tana [address] [place] [address] 04/19/2025 1:00 PM EDT Office Visit [facility] OPTOMETRY [address] [place] [address] Marek, Reyna, OD 230 [place] [address] documented as of this encounter Goals Goal [...] documented as of this encounter Care Teams Farm General Manager Relationship Specialty Start Date End Date Yolanda Priest MD [address] [place] [address] PCP - General Family Medicine 01/10/17 King Orlando PharmD [address] [place] [address] Pharmacist Internal Medicine 10/02/23 documented as of this encounter
--- OUTSIDE RECORDS SUMMARY | 2024-12-02 11:27 | XMS_ITS | Encounter Summary ---
Author Organization [employer] Address 75 [facility] 7t [place] [address] Care Team Providers Care Cake Froster Name Role Phone Yolanda Priest MD Primary Care Provider + King Orlando PharmD Unavailable [phone] Encounter Details Date Type Department Care Team (Late Contact Info) Description 11/27/2022 Orders Only [facility] MEDICINE 230 [place], [place] [phone] Yolanda Priest MD 230 [place], [place] [phone] Uncontrolled type 2 diabetes mellitus with hyperglycemia [...] 2:00 PM EDT Medication Management [facility] MEDICINE 230 [place] [address] King Orlando, PharmD [address] [place] [address] 02/18/2025 3:00 PM EDT Office Visit [facility] ADULT DENTAL 230 [place] [address] Megan, Tana 230 [place] [address] 04/19/2025 1:00 PM EDT Office Visit [facility] OPTOMETRY [address] [place] [address] Marek, Reyna, OD 230 [place] [address] documented as of this encounter Visit Diagnoses Diagnosis Uncontrolled type 2 diabetes mellitus with hyperglycemia ([facility])- Primary documented in this encounter Additional Health Concerns Assessment Noted Time PHQ-9 Depression Total Score: 7 11/09/19 23 10:16 AM EDT documented as of this encounter Care Teams Cake Froster Relationship Specialty Start Date End Date Yolanda Priest MD [address] [place] [address] PCP - General Family Medicine 01/10/17 King Orlando, Aditi [address] [place] [address] Pharmacist Internal Medicine 10/02/23 documented as of this encounter
--- OUTSIDE RECORDS SUMMARY | 2024-12-02 11:27 | XMS_ITS | Encounter Summary ---
Author Organization [employer] Address [address] [facility] 7t [place] [address] Care Team Providers Care Canvas Goods Supervisor Name Role Phone Yolanda Priest MD Primary Care Provider + King Orlando PharmD Unavailable [phone] Reason for Visit * Reason Onset Date Comments Prior Authorization 09/01/2024 Encounter Details Date Type Department Care Team (Late st Contact Info) Description 09/01/2024 Telephone [facility] MEDICINE 230 [place], [place] [phone] Yolanda Priest MD 230 [place], [place] [phone] Prior Authorization Social History Tobacco Use Types [...] Patient picked up Mitch 3 reader from [facility] pharmacy 08/14/2024. * Telephone Encounter - Dez Porter - 09/01/2024 9:12 AM EST PA request for Continuous Glucose Sensor (FreeStyle Mitch 3 Plus Sensor) [facility] documented in this encounter Plan of Treatment Upcoming Encounters Date Type Department Care Team (Late st Contact Info) Description 12/07/2024 2:00 PM EDT Medication Management [facility] MEDICINE 230 [place] [address] King Orlando PharmD 230 [place] [address] 02/18/2025 3:00 PM EDT Office Visit [facility] ADULT DENTAL [address] [place] [address] Megan, Tana [address] [place] [address] 04/19/2025 1:00 PM EDT Office Visit [facility] OPTOMETRY [address] [place] [address] Marek, Reyna, OD 230 [place] [address] documented as of this encounter Goals Goal [...] documented as of this encounter Care Teams Canvas Goods Supervisor Relationship Specialty Start Date End Date Yolanda Priest MD [address] [place] [address] PCP - General Family Medicine 01/10/17 King Orlando PharmD [address] [place] [address] Pharmacist Internal Medicine 10/02/23 documented as of this encounter
== END 2024-12-02 11:13 | disposition home or self-care (01) ==
LOC: HO.HGI 10:12
PROVIDERS: Visit Provider Nurse Practitioner Family
DX: K21.9 Gastro-esophageal reflux disease without esophagitis (principal); R13.14 Dysphagia, pharyngoesophageal phase; R10.13 Epigastric pain; R14.0 Abdominal distension (gaseous); Z86.19 Personal history of other infectious and parasitic diseases; K59.00 Constipation, unspecified
CPT/HCPCS: 99213

== ENCOUNTER → 2024-12-02 10:11 | Outpatient (BNVA) | payer OTHER, SELFPAY | PROVIDERS: Visit Provider Nurse Practitioner Family | DX: K21.9 Gastro-esophageal reflux disease without esophagitis (principal); K59.00 Constipation, unspecified; R13.14 Dysphagia, pharyngoesophageal phase; R10.13 Epigastric pain; R14.0 Abdominal distension (gaseous); Z86.19 Personal history of other infectious and parasitic diseases | CPT/HCPCS: 99212 ==

== ENCOUNTER 2024-12-17 12:51 | Outpatient (REF) | payer OTHER, SELFPAY ==
--- NOTE | ~2024-12-17 | US_ITS ---
EXAMINATION: US EXTRACRANIAL CAROTID DUPLEX, BILATERAL CLINICAL INFORMATION: Stenosis. COMPARISON: November 04, 2023 reported 50-79% stenosis, right ICA and 0-49% stenosis left ICA. TECHNIQUE: Real-time ultrasound and Doppler techniques (integrating B-mode 2-D vascular images, Doppler spectral analysis and color-flow Doppler imaging) were utilized to interrogate the extracranial carotid arteries, the vertebral arteries and proximal subclavian arteries bilaterally. The degree of stenosis is determined by criteria similar to NASCET. FINDINGS: Right Side: 1. There is calcified atherosclerotic plaque seen in the bifurcation/proximal ICA region. 2. The common carotid artery PSV proximally is 113 cm/s and distally 80 cm/s. 3. The proximal internal carotid artery velocities are 125 cm/s systolic and 41 cm/s diastolic. 4. The proximal external carotid artery PSV is 99 cm/s. 5. The vertebral artery shows antegrade flow. 6. The subclavian artery waveforms are triphasic.. Left Side: 1. There is calcified atherosclerotic plaque seen in the bifurcation/proximal ICA region. 2. The common carotid artery PSV proximally is 102 cm/s and distally 80 cm/s. 3. The proximal internal carotid artery velocities are 73 cm/s systolic and 24 cm/s diastolic. 4. The proximal external carotid artery PSV is 88 cm/s. 5. The vertebral artery shows antegrade flow. 6. The subclavian artery waveforms are triphasic. US/US carotid duplex BI IMPRESSION: 1. RIGHT: Calcified plaque representing 50-79% stenosis by ultrasound criteria, right ICA. 2. LEFT: Calcified plaques representing 0-49% stenosis by ultrasound criteria, left ICA. 3. There is no change in the category severity of disease when compared to the previous study dated November 04, 2023.. Electronically signed by: Tavo Lomas MD 12/17/2024 01:40 PM EDT RP
--- OUTSIDE RECORDS SUMMARY | 2024-12-17 12:56 | XMS_ITS | Encounter Summary ---
Author Organization [employer] Address [address] [facility] [address] [facility] [address] 7t [place] [address] Care Team Providers Care Longwall Headgate Operator Name Role Phone Yolanda Priest MD Primary Care Provider + King Orlando PharmD Unavailable [phone] Encounter Details Date Type Department Care Team (Late st Contact Info) Description 10/28/2024 Telephone [facility] OPTOMETRY [address] [place], [place] [phone] Marek, Reyna, OD [address] [place], [place] [phone] Social History Tobacco Use Types Packs/Day Years [...] MARY HAGEN Address: [facility] [address] [place] [address] documented in this encounter Plan of Treatment Upcoming Encounters Date Type Department Care Team (Late st Contact Info) Description 01/04/2025 2:00 PM EDT Medication Management [facility] MEDICINE 230 [place], [place] [phone] King Orlando, PharmD 230 [place], [place] [phone] 02/18/2025 3:00 PM EDT Office Visit [facility] ADULT DENTAL 230 [place] [address] Megan, Tana 230 [place] [address] 03/22/2025 9:45 AM EDT Office Visit [facility] MEDICINE 230 [place] [address] Yolanda Priest MD 230 [place] [address] 04/19/2025 1:00 PM EDT Office Visit [facility] OPTOMETRY 267 [place] [address] Marek, Reyna, OD 230 [place] [address] documented as of this encounter Goals Goal Patient Goal Type Associated Problems Recent Progress Patient-Stated? Author Blood Pressure < 140/90 Blood Pressure 118/64(2024 2:24 PM EDT) No King Orlando PharmD Hemoglobin A1c < 7 Result Component 10.5(10/13/19 2:52 PM EDT) No King Orlando PharmD documented as of this encounter Visit Diagnoses Not on filedocumented in this encounter Additional Health Concerns Assessment Noted Time PHQ-9 Depression Total Score: 13 024 1:39 PM EDT documented as of this encounter Care Teams Longwall Headgate Operator Relationship Specialty Start Date End Date Yolanda Priest MD [address] [place] [address] PCP - General Family Medicine 01/10/17 King Orlando PharmD [address] [place] [address] Pharmacist Internal Medicine 10/02/23 documented as of this encounter
--- OUTSIDE RECORDS SUMMARY | 2024-12-17 12:56 | XMS_ITS | Encounter Summary ---
Author Organization [employer] Address [address] [facility] 7t [place] [address] Care Team Providers Care Director Index Name Role Phone Yolanda Priest MD Primary Care Provider + King Orlando PharmD Unavailable [phone] Reason for Visit * Reason Onset Date Comments Appointment Request 10/26/2024 Encounter Details Date Type Department Care Team ([facility] st Contact Info) Description 10/26/2024 Telephone [facility] MEDICINE 230 [place], [place] [phone] Yolanda Priest MD 230 [place], [place] [phone] Appointment Request Social History Tobacco Use Types [...] with others, in a hotel, in a retirement, living outside on the street, on a [...] Description 01/04/2025 2:00 PM EDT Medication Management [facility] MEDICINE [address] [place] [address] Knig Orlando, PharmD 230 [place] [address] 02/18/2025 3:00 PM EDT Office Visit [facility] ADULT DENTAL [address] [place] [address] Tana Guzman 230 [place] [address] 03/22/2025 9:45 AM EDT Office Visit [facility] MEDICINE 230 [place] [address] Yolanda Priest MD [address] [place] [address] 04/19/2025 1:00 PM EDT Office Visit [facility] OPTOMETRY [address] [place] [address] Reyna Jara, OD 230 [place] [address] documented as of this encounter Goals Goal [...] documented as of this encounter Care Teams Director Index Relationship Specialty Start Date End Date Yolanda Priest MD [address] [place] [address] PCP - General Family Medicine 01/10/17 King Orlando PharmD [address] [place] [address] Pharmacist Internal Medicine 10/02/23 documented as of this encounter
--- OUTSIDE RECORDS SUMMARY | 2024-12-17 12:56 | XMS_ITS | Encounter Summary ---
Author Organization [employer] Address [address] [facility] 7t [place] [address] Care Team Providers Care Nitroglycerin Nitrator Operator Batch Name Role Phone Yolanda Priest MD Primary Care Provider + King Orlando PharmD Unavailable [phone] Encounter Details Date Type Department Care Team (Late st Contact Info) Description 11/27/2022 Orders Only [facility] MEDICINE 230 [place], [place] [phone] Yolanda Priest MD 230 [place], [place] [phone] Uncontrolled type 2 diabetes mellitus with hyperglycemia [...] Description 01/04/2025 2:00 PM EDT Medication Management [facility] MEDICINE 230 [place] [address] King Orlando, Aditi 230 [place] [address] 02/18/2025 3:00 PM EDT Office Visit [facility] ADULT DENTAL 230 [place] [address] Megan, Tana 230 [place] [address] 03/22/2025 9:45 AM EDT Office Visit [facility] MEDICINE 230 [place] [address] Yolanda Priest MD 230 [place] [address] 04/19/2025 1:00 PM EDT Office Visit [facility] OPTOMETRY [address] [place] [address] Marek, Reyna, OD 230 [place] [address] documented as of this encounter Visit Diagnoses Diagnosis Uncontrolled type 2 diabetes mellitus with hyperglycemia (CMS/HCC)- Primary documented in this encounter Additional Health Concerns Assessment Noted Time PHQ-9 Depression Total Score: 7 11/09/19 23 10:16 AM EDT documented as of this encounter Care Teams Nitroglycerin Nitrator Operator Batch Relationship Specialty Start Date End Date Yolanda Priest MD [address] [place] [address] PCP - General Family Medicine 01/10/17 King Orlando PharmD [address] [place] [address] Pharmacist Internal Medicine 10/02/23 documented as of this encounter
--- OUTSIDE RECORDS SUMMARY | 2024-12-17 12:56 | XMS_ITS | Encounter Summary ---
Author Organization [employer] Address [address] [facility] 7t [place] [address] Care Team Providers Care Critical Care Unit Nurse Name Role Phone Yolanda Priest MD Primary Care Provider + King Orlando PharmD Unavailable [phone] Reason for Visit * Reason Onset Date Comments Med Refill 09/01/2024 Encounter Details Date Type Department Care Team (Late st Contact Info) Description 09/01/2024 Telephone [facility] MEDICINE 230 [place], [place] [phone] Yolanda Priest MD 230 [place], [place] [phone] Med Refill Social History Tobacco Use Types [...] 09/01/2024 9:33 AM EST Medication sent to [facility] Pharmacy 07/17/24 #30 with 11 refills. * Telephone Encounter - Dez Porter - 09/01/2024 8:55 AM EST TC from pt requesting medication refill. Medications needing refill : Continuous Glucose Sensor (FreeStyle Mitch 3 Plus Sensor) [facility] glipiZIDE XL (Glucotrol XL) 10 MG 24 hr tablet To be sent to: [facility] - [place], [place] - [address] documented in this encounter Plan of Treatment Upcoming Encounters Date Type Department Care Team (Late st Contact Info) Description 01/04/2025 2:00 PM EDT Medication Management [facility] MEDICINE 230 [place] [address] King Orlando PharmD 230 [place] [address] 02/18/2025 3:00 PM EDT Office Visit [facility] ADULT DENTAL 230 [place] [address] Megan, Tana 230 [place] [address] 03/22/2025 9:45 AM EDT Office Visit [facility] MEDICINE 230 [place] [address] Yolanda Priest MD 230 [place] [address] 04/19/2025 1:00 PM EDT Office Visit [facility] OPTOMETRY 267 [place] [address] Reyna Jara, OD 230 [place] [address] documented as of this encounter Goals Goal [...] documented as of this encounter Care Teams Critical Care Unit Nurse Relationship Specialty Start Date End Date Yolanda Priest MD [address] [place] [address] PCP - General Family Medicine 01/10/17 King Orlando PharmD [address] [place] [address] Pharmacist Internal Medicine 10/02/23 documented as of this encounter
--- OUTSIDE RECORDS SUMMARY | 2024-12-17 12:56 | XMS_ITS | Encounter Summary ---
Author Organization [employer] Address [address] [facility] 7t [place] [address] Care Team Providers Care Differential Specialist Name Role Phone Yolanda Priest MD Primary Care Provider + King Orlando PharmD Unavailable [phone] Reason for Visit * Reason Comments Med Refill Encounter Details Date Type Department Care Team (Late st Contact Info) Description 05/07/2023 Refill [facility] ADULT DENTAL 230 [place], [place] [phone] Virgil Santoyo, STEVEN 230 [place], [place] [phone] Social History Tobacco Use Types Packs/Day Years [...] Description 01/04/2025 2:00 PM EDT Medication Management [facility] MEDICINE 230 [place] [address] King Orlando, PharmD 230 [place] [address] 02/18/2025 3:00 PM EDT Office Visit [facility] ADULT DENTAL 230 [place] [address] Tana Guzman 230 [place] [address] 03/22/2025 9:45 AM EDT Office Visit [facility] MEDICINE 230 [place] [address] Yolanda Priest MD 230 [place] [address] 04/19/2025 1:00 PM EDT Office Visit [facility] OPTOMETRY [address] [place] [address] [phone] Marek, Reyna, OD 230 [place] [address] documented as of this encounter Visit Diagnoses Not on filedocumented in this encounter Additional Health Concerns Assessment Noted Time PHQ-9 Depression Total Score: 7 11/09/19 23 10:16 AM EDT documented as of this encounter Care Teams Differential Specialist Relationship Specialty Start Date End Date Yolanda Priest MD 230 [place] [address] PCP - General Family Medicine 01/10/17 King Orlando, DouglasD [address] [place] [address] [phone] Pharmacist Internal Medicine 10/02/23 documented as of this encounter
--- OUTSIDE RECORDS SUMMARY | 2024-12-17 12:56 | XMS_ITS | Encounter Summary ---
Author Organization [employer] Address [address] [place] [address] 7t [place] [address] Care Team Providers Care Card Puncher Name Role Phone Yolanda Priest MD Primary Care Provider + King Orlando PharmD Unavailable [phone] Encounter Details Date Type Department Care Team (Late st Contact Info) Description 02/22/2023 Orders Only [facility] MEDICINE [address] [place] [address] [phone] Alice Jennings LPN Social History Tobacco Use [...] Description 01/04/2025 2:00 PM EDT Medication Management [facility] MEDICINE 230 [place], [place] [phone] King Orlando, PharmD 230 [place] [address] 02/18/2025 3:00 PM EDT Office Visit [facility] ADULT DENTAL 230 [place] [address] Megan, Tana [address] [place] [address] 03/22/2025 9:45 AM EDT Office Visit [facility] MEDICINE 230 [place] [address] Yolanda Priest MD 230 [place] [address] 04/19/2025 1:00 PM EDT Office Visit [facility] OPTOMETRY [address] [place] [address] MarekReyna maravilla, OD 230 [place] [address] documented as of this encounter Visit Diagnoses Not on filedocumented in this encounter Additional Health Concerns Assessment Noted Time PHQ-9 Depression Total Score: 7 11/09/19 23 10:16 AM EDT documented as of this encounter Care Teams Card Puncher Relationship Specialty Start Date End Date Yolanda Priest MD 230 [place] [address] PCP - General Family Medicine 01/10/17 King Orlando, DouglasD [address] [place] [address] Pharmacist Internal Medicine 10/02/23 documented as of this encounter
--- OUTSIDE RECORDS SUMMARY | 2024-12-17 12:56 | XMS_ITS | Encounter Summary ---
Author Organization [employer] Address 75 [facility] 7t [place] [address] Care Team Providers Care Hand Trimmer Name Role Phone Yolanda Priest MD Primary Care Provider + King Orlando PharmD Unavailable Reason for Visit * Reason Onset Date Comments Call Back 03/01/2023 Encounter Details Date Type Department Care Team ([facility] st Contact Info) Description 03/01/2023 Telephone [facility] MEDICINE 230 [place], [place] [phone] Yolanda Priest MD 230 [place], [place] [phone] Call Back Social History Tobacco Use Types [...] PM EDT Tc from [employer] with [facility] requesting to speak with a nurse in regards to a mutual pt. She informs is in regards to a medical release form for a physical that is needed, production underwriter offer to transferover but she prefers to speak with a nurse but at the end I transfer her over but she still wanted me to send message. Please contact pt at [phone] documented in this encounter Plan of Treatment Upcoming Encounters Date Type Department Care Team (Late st Contact Info) Description 01/04/2025 2:00 PM EDT Medication Management [facility] MEDICINE 230 [place] [address] King Orlando, PharmD [address] [place] [address] 02/18/2025 3:00 PM EDT Office Visit [facility] ADULT DENTAL 230 [place] [address] Beny Guzmanaris 230 [place] [address] 03/22/2025 9:45 AM EDT Office Visit [facility] MEDICINE 230 [place] [address] Yolanda Priest MD 230 [place] [address] 04/19/2025 1:00 PM EDT Office Visit [facility] OPTOMETRY [address] [place] [address] Marek, Reyna, OD 230 [place] [address] documented as of this encounter Visit Diagnoses Not on filedocumented in this encounter Additional Health Concerns Assessment Noted Time PHQ-9 Depression Total Score: 7 11/09/19 23 10:16 AM EDT documented as of this encounter Care Teams Hand Trimmer Relationship Specialty Start Date End Date Yolanda Priest MD 230 [place] [address] PCP - General Family Medicine 01/10/17 King Orlando, PharmD [address] [place] [address] Pharmacist Internal Medicine 10/02/23 documented as of this encounter
--- OUTSIDE RECORDS SUMMARY | 2024-12-17 12:56 | XMS_ITS | Clinical Summary ---
Author Organization [employer] Address [address] [facility] 7t [place] [address] Care Team Providers Care Machine Etcher Name Role Phone Yolanda Priest MD Primary Care Provider + King Orlando PharmD Unavailable [phone] Allergies No known active allergies Medications melatonin [...] once daily 90 tablet 3 2023 Active insulin pen needle (Pentips) 32G [...] 2023 Active ergocalciferol (Vitamin D2) 1.25 MG (51639 UT) capsuleIndications:Pur e hypercholesterolemia TAKE 1 CAPSULE BY MOUTH ONCE PER WEEK 12 capsule 1 2023 Active glipiZIDE XL (Glucotrol XL) 10 MG 24 hr tabletIndications:Type 2 diabetes mellitus with chronic kidney disease, with long-term current use of insulin, unspecified CKD stage ([facility]/HCC) Take 1 tablet (10 mg) by mouth Once per day. Do not crush, chew, or split. 30 tablet 11 07/17 Active Continuous Glucose Sensor (FreeStyle Mitch 3 Plus Sensor) miscIndications:Type 2 diabetes mellitus with chronic kidney disease, with long-term current use of insulin, unspecified CKD stage ([facility]/HCC) Apply 1 Device topically every 15 days. 2 each 5 2024 Active Continuous Glucose Insurance Appraiser (FreeStyle Mitch 3 [place]) deviceIndications:Type 2 diabetes mellitus with chronic kidney disease, with long-term current use of insulin, unspecified CKD stage ([facility]/HCC) 1 Device Use as directed. Use to check BG as directed 1 each 2024 Active ezetimibe (Zetia) 10 MG tabletIndications:Type 2 diabetes mellitus with chronic kidney disease, with long-term current use of insulin, unspecified CKD stage ([facility]/HCC) Take 1 tablet (10 mg) by mouth Once per day. 90 tablet 1 2024 Active TRUEplus Lancets 33G miscIndications:Uncont rolled type 2 diabetes mellitus with hyperglycemia ([facility]) USE DIRECTED TO TEST BLOOD SUGAR UP TO THREE TIMES DAILY 100 each 5 2024 Active Senna-Time 8.6 MG tablet TAKE 2 TABLETS BY MOUTH AT BEDTIME FOR CONSTIPATION 2024 Active aspirin (Aspirin Adult Low Dose) 81 MG EC tabletIndications:Type 2 diabetes mellitus with chronic kidney disease, with long-term current use of insulin, unspecified CKD stage ([facility]/HCC) Take 1 tablet by mouth daily 90 tablet 3 2024 Active SITagliptin (Januvia) 100 MG tabletIndications:Type 2 diabetes mellitus with chronic kidney disease, with long-term current use of insulin, unspecified CKD stage (CMS/HCC) Take 1 tablet (100 mg) by mouth Once per day. 30 tablet 11 2024 Active insulin degludec (Tresiba) 100 UNIT/ML [...] complication, with long-term current use of insulin ([facility]) TAKE 1 TABLET BY MOUTH TWICE DAILY IN THE MORNING AND IN THE EVENING 60 tablet 6 2024 Active glucose blood (FreeStyle Precision Akash Test) test stripIndications:Uncon trolled type 2 diabetes mellitus with hyperglycemia ([facility]) USE DIRECTED TO TEST BLOOD SUGAR THREE TIMES DAILY 50 strip 5 2024 Active Acetaminophen Extra Strength 500 MG tablet TAKE 1 TABLET BY MOUTH EVERY 6 HOURS NEEDED FOR MILD PAIN 120 tablet 2024 Active insulin aspart (NovoLOG FLEXPEN) 100 UNIT/ML penIndications:Type 2 diabetes mellitus with chronic kidney disease, with long-term current use of insulin, unspecified CKD stage (CMS/[facility]) Inject 5 units subcutaneously twice daily before lunch and dinner. 2024 Active glucose blood (FreeStyle Precision Akash Test) test stripIndications:Uncon trolled type 2 diabetes mellitus with hyperglycemia ([facility]) USE DIRECTED TO TEST BLOOD SUGAR UP TO THREE TIMES DAILY 50 strip 5 12/04 Discontinued metFORMIN (Glucophage) 1000 MG tabletIndications:Type 2 diabetes mellitus with other circulatory complication, with long-term current use of insulin ([facility]) TAKE 1 TABLET BY MOUTH TWICE DAILY IN THE MORNING AND IN THE EVENING 60 tablet 6 11/30 Discontinued acetaminophen (Tylenol Extra Strength) 500 MG tablet Take 1 tablet (500 mg) by mouth every 6 (six) hours if needed for mild pain. 120 tablet 12/08 Discontinued insulin aspart (NovoLOG FLEXPEN) 100 UNIT/ML penIndications:Type 2 diabetes mellitus with chronic kidney disease, with long-term current use of insulin, unspecified CKD stage (CMS/HCC) Inject 4 units subcutaneously twice daily before lunch and dinner. 15 mL 3 12/08 Discontinued( Reorder (will not trigger notification to [...] and they have leasing contract. Refer to [facility] to help her with rent applications and [...] uncontrolled., pt will fu with endo at [facility] next week. pt to bring glucometer to pharmacy vs order new glucometer continue lantus 40 units + Humalog TID ac meals + po medications. FU with me in 3 months Assessment & Plan (11/08/2022 10:55 AM EDT): Uncontrolled. Increase lantus to 40 units, no change in other medications FU with me in 4 weeks. refer to solar electric installer and reminded pt to be complaint with [...] Encounters Date Type Department Care Team Description 12/08/2024 Telephone [facility] MEDICINE [address] [place] [address] Yolanda Priest MD 12/07/2024 Refill [facility]INE [address] [place] [address] Yolanda Priest MD 12/07/2024 Travel 12/03/2024 Refill [facility]INE [address] [place] [address] Yolanda Priest MD Uncontrolled type 2 diabetes mellitus with hyperglycemia ([facility]) 11/29/2024 Refill [facility] MEDICINE [address] [place] [address] Yolanda Priest MD Type 2 diabetes mellitus with other circulatory complication, with long-term current use of insulin (CMS/[facility]) 11/09/2024 Travel 11/02/2024 Orders Only [facility] MEDICINE [address] [place] [address] Yolanda Priest MD 10/28/2024 Telephone [facility] OPTOMETRY [address] [place] [address] MarekReyna maravilla, OD 10/26/2024 Telephone [facility] MEDICINE [address] [place] [address] Yolanda Priest MD 10/26/2024 Telephone [facility] MEDICINE [address] [place] [address] Yolanda Priest MD Appointment Request 10/15/2024 2:00 PM EDT Office Visit [facility] OPTOMETRY [address] [place], [place] [phone] Reyna Jara, OD Both eyes affected by mild nonproliferative diabetic retinopathy with macular edema, associated with type 2 diabetes mellitus ([facility]) (Primary Dx); White without pressure of peripheral retina of left eye; Combined forms of age-related cataract of both eyes 10/15/2024 Travel 10/12/2024 Travel 10/04/2024 Refill [facility] MEDICINE [address] [place], [place] [phone] King Orlando, DouglasD Uncontrolled type 2 diabetes mellitus with hyperglycemia ([facility]) from Last 3 Months Immunizations Immunization Administration Dates Next Due Influenza Injectable Quadriv [...] Sign Reading Time Taken Comments Blood Pressure 118/64 12/07/2024 2:24 PM EDT Pulse 88 12/07/2024 2:24 PM EDT Temperature 36 ??C (96.8 ??F) [...] Description 01/04/2025 2:00 PM EDT Medication Management [facility] MEDICINE [address] [place] [address] King Orlando, PharmD [address] [place] [address] 02/18/2025 3:00 PM EDT Office Visit [facility] ADULT DENTAL [address] [place] [address] Tana Guzman [address] [place] [address] 03/22/2025 9:45 AM EDT Office Visit [facility] MEDICINE [address] [place] [address] Yolanda Priest MD [address] [place] [address] 04/19/2025 1:00 PM EDT Office Visit [facility] OPTOMETRY [address] [place] [address] MarekReyna maravilla, OD [address] [place] [address] Health Maintenance Due Date Last Done Comments CT Colonography 1960 Colonoscopy 1960 FIT 1960 FOBT 1960 Sigmoidoscopy 1960 HPV/Cotest 11/17/1989 COVID-19 Vaccine ( season) 2024 06/29/2022, 12/01/2021, 12/07/2020, Additional history exists Dental Oral Exam 05/22/2024 11/20/2023 Dental Prophylaxis 06/13/2024 12/11/2023 Dental X-Ray: Bitewings 11/20/2024 11/20/2023 SDOH Screening 11/25/2024 11/26/2023 Diabetes: Foot Exam 01/09/2025 01/10/2024, 01/10/2024, 01/10/2024, Additional history exists Diabetes: Hemoglobin A1C 01/12/2025 025, 05/27/2024, 02/24/2024, Additional history exists Alcohol/Substance [...] patient's age to complete this topic Meningococcal B Vaccine Aged Out No l onger eligible based on patient's age to complete [...] edema, associated with type 2 diabetes mellitus ([facility]/HCC) POCT GLYCATED HEMOGLOBIN, TOTAL Routine 10/12/2024 2:52 PM EDT Type 2 diabetes mellitus with chronic kidney disease, with long-term current use of insulin, unspecified CKD stage (CMS/[facility]) PAP SMEAR Routine 06/12/2024 10:17 AM EST [...] EDT Narrative 11/29/2024 7:07 PM EDT ? [facility] [place] ? [address] ?[place] [address] ?[phone] ? Mammography Report ? Signed ? Patient: Carolyn Richz,Alice M ?MR#: [id number] ?? [id number] ? : 1960 ?Acct:[id number] ? Age/Sex: 64 / F ?ADM Date: 11/24/25 ? Loc: HO.MAMMO ? Attending Dr: Yolanda Priest MD ? Ordering Physician: Yolanda Priest MD ?Results: 1Ne ?? gative ? Date of Service: 11/24/25 ?Follow Up: 1 Year From Orig ?? inal Mammogram ? Procedure(s): MM tomosynthesis screening BI ?? Accession Number(s): [id number] ? cc: Yolanda Priest MD ? EXAMINATION: [...] DD/ 1345 ? TD/TT: 11/24/24 1400 ? [place] Supervisor: ? Procedure Note Angeline Beaver - 11/29/2024 [facility] [address] [place] [address] Mammography Report Signed Patient: Carolyn Alice Whitmore MMR#: [id number] : 1960Acct:[id number] Age/Sex: 64 / FADM Date: 11/24/24 Loc: HO.MAMMO Attending Dr: Yolanda Priest MD Ordering Physician: Yolanda rPiest MDResults: 1Ne julianne Date of Service: 11/24/24Follow Up: 1 Year From [facility] ina Mammogram Procedure(s): MM tomosynthesis screening BI Accession Number(s): [id number] cc: Yolanda Priest MD EXAMINATION: MM SCREENING [...] 11/29/24 1905 DD/ 1345 TD/TT: 11/24/24 1400 [place] Supervisor: us Yolanda Priest MD IMG BI PROCEDURES Edited Result - Final * VITAMIN D 25-OH (D2 AND D3) (11/02/2024 11:38 AM EDT) Vitamin D, 25-OH, D2 16 ng/mL [facility] Comment:This test was deveditho david and its analytical performancecharacteristics have been determined by [employer] [place]. It hasnot been cleared or approved by the U.S. Food and DrugAdministration. This assay has been validated pursuantto the CLIA regulations and is used for clinicalpurposes.THIS TEST WAS PERFORMED AT:[id number] [place] [address]ZVNOJUKLOIDA DEMARCO MD,PHD Vitamin D, 25-OH, D3 14 ng/mL [facility] Comment:This test was develo ped and its analytical performancecharacteristics have been determined by [employer] [place]. It hasnot been cleared or approved by the U.S. Food and DrugAdministration. This assay has been validated pursuantto the CLIA regulations and is used for clinicalpurposes. Vitamin D, 25-OH, Total 30 30 - 100 ng/mL [facility] Comment:Vitamin D, 25-Hydrox y reports concentrations [...] = 30 ng/mL.For additional information, please refer [email or web address].[employer].Sano/faq/[email or web address](This link is being provided for informational/educational purposes only.) 11/02/2024 11:3 8 AM EDT 11/02/2024 1:04 PM EDT us Generic External Data Provider LAB BLOOD ORDERAB LES Final Result [facility] [address] [place] [phone] * Lipase (11/02/2024 11:38 AM EDT) Lipase 40 8 - 78 U/L [facility] 11/02/2024 11:3 8 AM EDT 11/02/2024 1:04 PM EDT us Generic External Data Provider LAB BLOOD ORDERAB LES Final Result Performing Organization Address [facility]/ZIP Co de Phone Number [facility] [address] [place] [phone] * Hepatic Function Panel (11/02/2024 11:38 AM EDT) Bilirubin, Total 0.4 0.0 - 1.0 mg/dL [facility] Bilirubin, Direct 0.1 0.0 - 0.5 mg/dL [facility] Aspartate Amino Transferase 22 5 - 31 U/L [facility] Alanine Aminotransferase 20 0 - 31 U/L [facility] Total Protein 8.0 6.5 - 8.0 g/dL [facility] Albumin Level 4.2 3.5 - 5.0 g/dL [facility] Alkaline Phosphatase 85 39 - 117 U/L [facility] 11/02/2024 11:3 8 AM EDT 11/02/2024 1:04 PM EDT us Yolanda Priest MD LAB BLOOD ORDERABLES Fin al Result Performing Organization Address City/[facility]/ZIP Co de Phone Number [facility] [address] [place] [phone] * (ABNORMAL) Lipid Panel, Standard (11/02/2024 11:38 AM EDT) Triglycerides 136 <150 mg/dL [facility] Comment:Desirable Triglyceri de: less than 150 mg/dLBorderline High Triglyceride 150-199 mg/dLHigh Triglyceride: 200-499 mg/dLVery High Triglyceride: greater than or equal to 5OO mg/dL Cholesterol 197 <200 mg/dL [facility] Comment:Desirable Cholestero l: less than 200 mg/dLBorderline High Cholesterol: 200-239 mg/dLHigh Cholesterol: greater than 239 mg/dL LDL Cholesterol Calculated 118(H) <100 mg/dL [facility] Comment:Desirable LDL: less than 100 mg/dLNear Optimal/Above Optimal LDL: 110- 129 mg/dLBorderline High LDL: 130-159 mg/dLHigh LDL: 160-189 mg/dLVery High LDL: greater than or equal to 190 mg/dL HDL Cholesterol 52 >40 mg/dL [facility] Comment:Desirable HDL: great er than 40 mg/dL Note: This HDL assay may give artificially low results in patients with liver disease. 11/02/2024 11:3 8 AM EDT 11/02/2024 1:04 PM EDT Yolanda Priest MD LAB BLOOD ORDERABLES Fin al Result [facility] [address] [place] [phone] * OCT, Retina - OU - [...] Expiration Date Blood 10/12/2024 2:52 PM EDT us Yolanda Priest MD POINT OF CARE TEST ENTER /EDIT ORDERABLES Final Result * Pap Smear (06/12/2024 10:17 AM EST) Swab 06/12/2024 10:1 7 AM EST 06/12/2024 1:50 PM EST Narrative [facility] - 07/01/2024 7:48 AM EST ----- ------- Name: Alice Amin ? Age/Sex: 63/F ? : 1960 Unit#: [id number] ?? Attend Dr: Yolanda Priest MD ?Re06/12/24 ?Status: DEP REF ? Location: HO.HHCLNP ? Disch: ? ----- ------- SPEC : [id number] ?RECD: 06/12/24-0270 ? STATUS: ??SOUT ? REQ NUM: [id number] ? ANTONIETA: 06/12/24-1017 ? SUBM DR: Yolanda Priest MD ? ENTERED: ??06/12/24-7891 ?SP TYPE: Pap Smr ?OTHR : ? [...] CYTOLOGY ORDERABLES Final Result Performing Organization Address [facility] Co de Phone Number [facility] [address] [place] [phone] * Hepatitis Panel, General (05/23/2023 2:35 PM EDT) [facility] Hepatitis A IgM Nonreactive Nonreactive [facility] Comment:IgM antibodies to BROOKS V not detected; does not exclude earlyacute or recovered HAV infection. ~Hepatitis B Surface Antibody NONREACTIVE Nonreactive [facility] Comment:Nonreactive: < 8.00 mIU/mL Hepatitis B Core Antibody Nonreactive Nonreactive [facility] Hepatitis C Antibody Nonreactive Nonreactive [facility] Comment:Antibodies to HCV no t detected; does not exclude early acuteHCV infection. Hepatitis B Surface Ag Negative Negative [facility] Blood 05/23/2023 2:35 PM EDT 05/23/2023 4:01 PM EDT Yolanda Priest MD LAB BLOOD ORDERABLES Fin al Result Performing Organization Address [facility] Co de Phone Number [facility] [address] [place] [phone] [phone] * Cologuard?? colon cancer screening (03/05/2023 2:15 PM EDT) [facility] Cologuard Cancer Screen Negative [facility] (CLIA #:[id number]) Stool Anal structure / Unknown 03/05/2023 2:15 PM EDT Yolanda Priest MD LAB MOLECULAR DIAGNOSTIC S ORDERABLES Final Result [employer] (CLIA #:[id number]) [place] [address], [place] [phone] from Last 3 Months or Most Recently Relevant to Health Maintenance Insurance [facility] [address] [id number] [facility] Care Teams Machine Etcher Relationship Specialty Start Date End Date Yolanda Priest MD [address] [place] [address] PCP - General Family Medicine 01/10/17 King Orlando, DouglasD [address] [place] [address] Pharmacist Internal Medicine 10/02/23
--- OUTSIDE RECORDS SUMMARY | 2024-12-17 12:56 | XMS_ITS | Encounter Summary ---
Author Organization [employer] Address [address] [facility] 7t [place] [address] Care Team Providers Care Dishcloth Folder Name Role Phone Yoladna Priest MD Primary Care Provider + King Orlando PharmD Unavailable [phone] Reason for Visit * Reason Onset Date Comments Appointment Request 07/03/2024 Encounter Details Date Type Department Care Team ([facility] st Contact Info) Description 07/03/2024 Telephone [facility] MEDICINE [address] [place], [place] [phone] Yolanda Priest MD [address] [place], [place] [phone] Appointment Request Social History Tobacco Use Types [...] King from 06/24. Please contact pt at [phone]. (Croatian Speaker) documented in this encounter Plan of Treatment Upcoming Encounters Date Type Department Care Team (Late st Contact Info) Description 01/04/2025 2:00 PM EDT Medication Management [facility] MEDICINE [address] [place] [address] King Orlando, PharmD [address] [place] [address] 02/18/2025 3:00 PM EDT Office Visit [facility] ADULT DENTAL [address] [place], [place] [phone] Tana Guzman [address] [place] [address] 03/22/2025 9:45 AM EDT Office Visit [facility] MEDICINE [address] [place] [address] Yolanda Priest MD [address] [place] [address] 04/19/2025 1:00 PM EDT Office Visit [facility] OPTOMETRY [address] [place] [address] Reyna Jara, OD [address] [place] [address] documented as of this encounter Goals Goal [...] documented as of this encounter Care Teams Dishcloth Folder Relationship Specialty Start Date End Date Yolanda Priest MD [address] [place] [address] [phone] PCP - General Family Medicine 01/10/17 King Orlando PharmD [address] [place] [address] [phone] Pharmacist Internal Medicine 10/02/23 documented as of this encounter
--- OUTSIDE RECORDS SUMMARY | 2024-12-17 12:56 | XMS_ITS | Encounter Summary ---
Author Organization [employer] Address [address] [facility] 7t [place] [address] Care Team Providers Care Refuge Manager Name Role Phone Yolanda Priest MD Primary Care Provider + King Orlando PharmD Unavailable [phone] Reason for Visit * Reason Onset Date Comments Prior Authorization 09/01/2024 Encounter Details Date Type Department Care Team (Late st Contact Info) Description 09/01/2024 Telephone [facility] MEDICINE [address] [place], [place] [phone] Yolanda Priest MD [address] [place], [place] [phone] Prior Authorization Social History Tobacco Use Types [...] Patient picked up Mitch 3 reader from [facility] pharmacy 08/14/2024. * Telephone Encounter - Dez Porter - 09/01/2024 9:12 AM EST PA request for Continuous Glucose Sensor (FreeStyle Mitch 3 Plus Sensor) [facility] [place] documented in this encounter Plan of Treatment Upcoming Encounters Date Type Department Care Team (Late st Contact Info) Description 01/04/2025 2:00 PM EDT Medication Management [facility] MEDICINE [address] [place] [address] King Orlando PharmD [address] [place] [address] 02/18/2025 3:00 PM EDT Office Visit [facility] ADULT DENTAL [address] [place] [address] Megan, Tana [address] [place] [address] 03/22/2025 9:45 AM EDT Office Visit [facility] MEDICINE [address] [place] [address] Yolanda Priest MD [address] [place] [address] 04/19/2025 1:00 PM EDT Office Visit [facility] OPTOMETRY [address] [place] [address] Reyna Jara, OD [address] [place] [address] documented as of this encounter Goals Goal [...] documented as of this encounter Care Teams Refuge Manager Relationship Specialty Start Date End Date Yolanda Priest MD [address] [place] [phone] PCP - General Family Medicine 01/10/17 King Orlando PharmD [address] [place] [phone] Pharmacist Internal Medicine 10/02/23 documented as of this encounter
== END 2024-12-17 12:52 | disposition home or self-care (01) ==
LOC: HO.US 12:51
PROVIDERS: Visit Provider Surgery Vascular Surgery
DX: I65.21 Occlusion and stenosis of right carotid artery (principal)
CPT/HCPCS: 93880

== ENCOUNTER → 2024-12-17 12:57 | Outpatient (BNV) | payer OTHER, SELFPAY | PROVIDERS: Visit Provider Radiology Diagnostic Radiology | DX: I65.23 Occlusion and stenosis of bilateral carotid arteries (principal) | CPT/HCPCS: 93880 ==

== ENCOUNTER 2024-12-22 13:20 | Outpatient (AMB) | payer OTHER, SELFPAY ==
[2024-12-22 13:33] VITALS: BMI 22.7
--- NOTE | 2024-12-22 13:33 | MHC.OFFVIS ---
Vital Signs 12/22/24 13:33 Height 5 ft 4 in Weight 132 lb BMI 22.7 Intake Visit Reasons: 1y follow up s/p Carotid US 12/17/24 Intake Note: follow up Carotid US 12/17/24 Steward/Stewardess Banquet Required: No Accompanied by: Self / Same As Patient Allergies No Known Allergies [No Known Allergies*] Allergy (Verified 12/22/24 13:34) HPI HPI 1y follow up s/p Carotid US 12/17/24: Details: The patient is a 64-year-old female presenting with carotid artery disease for routine surveillance follow-up. The carotid disease has been stable over the years with no new symptoms reported, consistent with the results of recent imaging studies. She has not required any recent direct interventions for her carotid condition and continues to remain asymptomatic. [facility] Medical History Encounter for colorectal cancer screening using Cologuard test Depression Peripheral neuropathy Asthma Back pain Arthritis Hypercholesterolemia Diabetes mellitus Surgical History Hx of cholecystectomy (~2021) H/O tubal ligation Family History Father Lung cancer Prostate cancer Emphysema lung Social History Household Members: Family and Children Housing: Apartment Do you presently have visiting nurse or other home services: No Unable to assess alcohol history related to: Unknown Alcohol intake: never Patient Tobacco Use Status: Never used Tobacco e-Cigarette/Vaping Use: Never Used Second Hand Smoke Exposure: Yes service: No Current occupational status: retired Current occupation: rt handed Review of Systems Const All systems reviewed & are unremarkable except as noted in HPI and below Reports no additional complaints ENT Reports Normal hearing present Card Denies chest pain, Denies chest pain at rest, Denies chest pain with activity and Denies pedal edema Resp Denies cough GI Denies abdominal pain Musc Denies abnormal gait, Denies muscle cramps and Denies radiating pain into limb Skin/Breast Denies skin ulcer and Denies wounds Neuro Reports Normal hearing present and Denies abnormal gait Psych Reports no additional complaints Physical Exam Vital Signs: BMI result Body Mass Index 22.7 Const General: cooperative, healthy appearing and comfortable Orientation/consciousness: oriented to person, oriented to place and oriented to time HEENT Head: Yes normal to inspection Neck Neck: Yes normal visual inspection Carotids: no bruits Chest Chest palpation & inspection: normal inspection of the chest Resp Effort & Inspection: normal respiratory effort and able to speak in complete sentences Auscultation: clear to auscultation bilaterally, no crackles, no rales, no rhonchi and no wheezes Cardio Rate: regular rate Rhythm: regular rhythm Heart sounds: S1 normal heart sound present and S2 normal heart sound present Bruits: no carotid bruits Peripheral pulses: Peripheral pulses 2+ throughout GI Inspection: Yes normal to inspection Skin Wounds: no wounds Hair: normal Neuro General: oriented to person, oriented to place and oriented to time Cranial nerves: Yes CN's II-XII intact bilaterally and Yes Normal hearing present Cognition (Neuro): normal cognition Motor exam (neuro): 5/5 motor strength present throughout Extrem Other: venous exam: No significant superficial varicosities or spider telangiectasias, minimal edema General: No clubbing, No cyanosis and No edema Psych Appearance: grossly normal Mental Status: mental status grossly normal Speech and movement: Normal speech and movement present Results Reviewed Results Reviewed: Noninvasive carotid testing dated 12/17/2024 demonstrates right side 50-79% stenosis with a peak systolic of 125 left-sided 0-49% stenosis. Written report and images were reviewed. Assessment & Plan Assessment & Plan (1) Bilateral carotid artery stenosis: Code(s): I65.23 - Occlusion and stenosis of bilateral carotid arteries Category: Medical Plan: In short patient has asymptomatic carotid disease. We have reviewed signs and symptoms of a stroke. We also discussed risk factor modification inclusive a healthy diet low in cholesterol. The patient will follow up with us with surveillance ultrasound of the carotids 1 year. Should there be any changes or signs or symptoms of a stroke we will be happy to see them back sooner. Thank you for allowing us to participate in this patient's care. If there are any questions or concerns please do not hesitate to contact us. Plan Patient was informed and verbally consented to the use of an ambient scribe for clinic note documentation during this visit. Patient Instructions: - Continue regular follow-up appointments. - Return in one year for a carotid ultrasound. - Report any new symptoms such as dizziness or headaches immediately. - Follow instructions for knee injections as advised by your primary care physician. Coding Level of Care Code Est Pt Level 4 (99464) Diagnoses Bilateral carotid artery stenosis I65.23
== END 2024-12-22 13:59 | disposition home or self-care (01) ==
LOC: HO.HVS 13:21
PROVIDERS: Visit Provider Surgery Vascular Surgery
DX: I65.23 Occlusion and stenosis of bilateral carotid arteries (principal)
CPT/HCPCS: 99214

== ENCOUNTER → 2024-12-22 13:20 | Outpatient (BNVA) | payer OTHER, SELFPAY | PROVIDERS: Visit Provider Surgery Vascular Surgery | DX: I65.23 Occlusion and stenosis of bilateral carotid arteries (principal) | CPT/HCPCS: 99212 ==

== ENCOUNTER 2025-02-22 13:32 | Outpatient (AMB) | payer OTHER, SELFPAY ==
--- NOTE | 2025-02-22 13:47 | MHC.OFFVIS ---
Intake Visit Reasons: Inj-rt knee injection-last 03/23/24 Intake Note: Alice is a 64 year old female who presents today for a repeat right knee injection, last injection was administered on 03/23/24. Patient reports last injection was helpful and she would like to repeat today. She is questioning if she can have bilateral knees injected, but we did discuss that this will need to be reviewed with provider as we have not treated her for the Left Knee in the past. Hx od Diabetes and reports that her sugars have been high. Allergies No Known Allergies (No Known Allergies*) Allergy (Verified 02/22/25 13:51) HPI HPI Inj-rt knee injection-last 03/23/24: Details: Alice is a 64 year old female who presents today for a repeat right knee injection, last injection was administered on 03/23/24. Patient reports last injection was helpful and she would like to repeat today. She is questioning if she can have bilateral knees injected, but we did discuss that this will need to be reviewed with provider as we have not treated her for the Left Knee in the past. Hx of Diabetes and reports that her sugars have been high. Today they have been in the high 200s. [facility] Medical History Encounter for colorectal cancer screening using Cologuard test Depression Peripheral neuropathy Asthma Back pain Arthritis Hypercholesterolemia Diabetes mellitus Surgical History Hx of cholecystectomy (~2021) H/O tubal ligation Family History Father Lung cancer Prostate cancer Emphysema lung Social History Household Members: Family and Children Housing: Apartment Do you presently have visiting nurse or other home services: No Unable to assess alcohol history related to: Unknown Alcohol intake: never Patient Tobacco Use Status: Never used Tobacco e-Cigarette/Vaping Use: Never Used Second Hand Smoke Exposure: Yes service: No Current occupational status: retired Current occupation: rt handed Physical Exam Extrem Other: Tenderness to palpation lateral compartment right knee. Valgus malalignment with mild effusion Assessment & Plan Assessment & Plan (1) Arthritis of both knees: Code(s): M17.0 - Bilateral primary osteoarthritis of knee Category: Medical Plan: moderate OA right knee and now with left knee pain. Sugars are uncontrolled and steroid injection are consequently contra indicated. She will return for injection when her sugars are better controlled. In the meantime she will remain active. (2) Diabetes mellitus: Comment: NIDDM Code(s): E11.9 - Type 2 diabetes mellitus without complications Category: Medical Plan: Coding Level of Care Code Est Pt Level 3 (05961) Diagnoses Arthritis of both knees M17.0 Diabetes mellitus E11.9
--- OUTSIDE RECORDS SUMMARY | 2025-02-22 14:14 | XMS_ITS | Encounter Summary ---
Author Organization [email or web address] Address [address] [facility] [address] [place] [address] Care Team Providers Care Tool Specialist Name Role Phone Yolanda Priest MD Primary Care Provider + King Orlando PharmD Unavailable [phone] Reason for Visit * Reason Onset Date Comments Call Back 03/01/2023 Encounter Details Date Type Department Care Team ([facility] st Contact Info) Description 03/01/2023 Telephone [facility] MEDICINE [address] [place], [place] [phone] Yolanda Priest MD [address] [place], [place] [phone] Call Back Social History Tobacco Use Types [...] PM EDT Tc from [facility] with [facility] requesting to speak with a nurse in regards to a mutual pt. She informs is in regards to a medical release form for a physical that is needed, singer songwriter offer to transferover but she prefers to speak with a nurse but at the end I transfer her over but she still wanted me to send message. Please contact pt at [phone] documented in this encounter Plan of Treatment Upcoming Encounters Date Type Department Care Team (Late st Contact Info) Description 02/25/2025 10:30 AM EDT Medication Management [facility] MEDICINE [address] [place] [address] King Orlando, Aditi [address] [place] [address] 03/15/2025 9:45 AM EDT Office Visit [facility] MEDICINE [address] [place] [address] Yolanda Priest MD [address] [place] [address] 04/19/2025 1:00 PM EDT Office Visit [facility] OPTOMETRY [address] [place] [address] Reyna Jara, OD [address] [place] [address] documented as of this encounter Visit Diagnoses Not on filedocumented in this encounter Additional Health Concerns Assessment Noted Time PHQ-9 Depression Total Score: 7 11/09/19 23 10:16 AM EDT documented as of this encounter Care Teams Tool Specialist Relationship Specialty Start Date End Date Yolanda Priest MD [address] [place] [id number] PCP - General Family Medicine 01/10/17 King Orlando, DouglasD [address] [place] [phone] Pharmacist Internal Medicine 10/02/23 documented as of this encounter
== END 2025-02-22 14:14 | disposition home or self-care (01) ==
LOC: HO.HOS 13:33
PROVIDERS: Visit Provider Orthopaedic Surgery
DX: M17.0 Bilateral primary osteoarthritis of knee (principal); E11.9 Type 2 diabetes mellitus without complications
CPT/HCPCS: 99213

== ENCOUNTER → 2025-02-22 13:32 | Outpatient (BNVA) | payer OTHER, SELFPAY | PROVIDERS: Visit Provider Orthopaedic Surgery | DX: M17.0 Bilateral primary osteoarthritis of knee (principal); E11.9 Type 2 diabetes mellitus without complications | CPT/HCPCS: 99212 ==

== ENCOUNTER 2025-03-02 11:45 | Outpatient (AMB) | payer OTHER, SELFPAY ==
--- NOTE | 2025-03-02 11:47 | A.OFFVIS_ITS ---
Vital Signs 03/02/25 11:48 Height 5 ft 4 in Weight 120 lb 4.068 oz BMI 20.6 BP 121/67 Blood Pressure Location Lt brachial Position Sitting Pulse 87 Intake Visit Reasons: 3m Intake Note: Alice presents in the office as a 3 month follow up. CC: she states that she is having pains in the stomach at times - not a lot. Yesteray she had diarhea and vomiting. Digital Asset Coordinator Required: Yes Digital Asset Coordinator Name: [id number] Allergies No Known Allergies (No Known Allergies*) Allergy (Verified 03/02/25 11:52) HPI HPI 3m: Details: LAST VISIT: GERD (gastroesophageal reflux disease) Dysphagia Postprandial epigastric pain Postprandial abdominal bloating History of Helicobacter pylori infection Constipation Plan Patient will continue taking pantoprazole in the morning and famotidine at bedtime. At this time patient reports that her symptoms are completely controlled as she can completed successfully treatment for H pylori. Will repeat H pylori to check for eradication of the bacteria when she returns to the office next visit. Patient will take Senokot daily. Increase fluid intake and activity to promote better bowel motility. Patient was also instructed to avoid dietary triggers and late night snacking. Staying upright for minimum 3 hours after meals discussed with patient. Patient will return in 3 months, sooner on as needed basis. She is agreeable to this plan and verbalizes understanding of instructions. She was given the opportunity to ask questions and all questions answered. ? Thank you for allowing me to participate in her care Refilled pantoprazole take one tablet half an hour before breakfast 40 mg PO DAILY 90 tabs 2RF K21.9 sennosides (Natural Senna Laxative) 17.2 mg (2 x 8.6 mg) PO BEDTIME 180 tabs 3RF constipation K59.00 famotidine 20 mg PO BEDTIME 90 tabs 3RF 90 days K21.9 TODAY'S VISIT Patient is here today for follow-up. Patient is accompanied by her daughter. Patient reports epigastric pain continues. Sometimes the pain is strong and sometimes is very mild. However patient reports that yesterday she was vomiting. Abdominal bloating postprandially. Patient reports that no matter what she is eating she feels very bloated. Takes Senokot as needed to help with bowel movements. Patient diagnosed in the past with H pylori and will need to be retested. Patient will need to stop PPI 2 weeks before her next appointment. Patient reports that her blood sugars have been very unstable. States that she sometimes will not eat anything and her blood sugars will be very high. She is following up with endocrinology at [facility]. Patient denies melena, hematochezia, unintentional weight loss or ribbon like stools. Patient denies dyspepsia, dysphagia or odynophagia. [facility] Medical History Encounter for colorectal cancer screening using Cologuard test Depression Peripheral neuropathy Asthma Back pain Arthritis Hypercholesterolemia Diabetes mellitus Surgical History Hx of cholecystectomy (~2021) H/O tubal ligation Family History Father Lung cancer Prostate cancer Emphysema lung Social History Household Members: Family and Children Housing: Apartment Do you presently have visiting nurse or other home services: No Unable to assess alcohol history related to: Unknown Alcohol intake: never Patient Tobacco Use Status: Never used Tobacco e-Cigarette/Vaping Use: Never Used Second Hand Smoke Exposure: Yes service: No Current occupational status: retired Current occupation: rt handed Review of Systems Const Denies weight gain and Denies weight loss ENT Reports no additional complaints, Reports dysphagia (Occasional) and Denies odynophagia Card Reports no additional complaints Resp Reports no additional complaints GI Denies abdominal pain, Denies belching, Denies melena, Denies bloating, Denies change in bowel habits, Reports constipation, Reports dysphagia (Occasional), Denies excessive flatus, Denies dyspepsia, Reports heartburn, Denies diarrhea, Denies loose stools, Denies nausea, Denies odynophagia and Denies vomiting Reports no additional complaints Musc Reports no additional complaints Neuro Reports no additional complaints Psych Reports no additional complaints Endo Reports no additional complaints Physical Exam Vital Signs: Last Vital Signs Pulse 87 03/02/25 11:48 BP 121/67 03/02/25 11:48 BMI result Body Mass Index 20.6 Const General: healthy appearing, no acute distress and well developed Nutritional Appearance: well nourished Orientation/consciousness: patient oriented x3 Resp Effort & Inspection: normal respiratory effort, able to speak in complete sentences, no tracheal deviation and symmetric chest movement Auscultation: clear to auscultation bilaterally Cardio Rate: regular rate GI Inspection: Yes normal to inspection and No distended Palpation (GI): Soft to palpation, not firm, nontender and No hepatosplenomegaly present Auscultation: normal bowel sounds General: Yes no CVA tenderness Back/Spine/Pelvis Back: no CVA tenderness Skin General skin exam: elasticity normal, turgor normal and dry skin Neuro General: patient oriented x3 Psych Appearance: grossly normal Mental Status: mental status grossly normal Assessment & Plan Assessment & Plan (1) Gastroesophageal reflux disease: Code(s): K21.9 - Gastro-esophageal reflux disease without esophagitis Qualifiers: Esophagitis presence: esophagitis presence not specified Qualified Code(s): K21.9 - Gastro-esophageal reflux disease without esophagitis (2) Dysphagia: Code(s): R13.10 - Dysphagia, unspecified Qualifiers: Dysphagia type: pharyngoesophageal phase Qualified Code(s): R13.14 - Dysphagia, pharyngoesophageal phase (3) Postprandial epigastric pain: Code(s): R10.13 - Epigastric pain (4) Postprandial abdominal bloating: Code(s): R14.0 - Abdominal distension (gaseous) (5) History of Helicobacter pylori infection: Code(s): Z86.19 - Personal history of other infectious and parasitic diseases (6) Constipation: Code(s): K59.00 - Constipation, unspecified Qualifiers: Constipation type: slow transit constipation Qualified Code(s): K59.01 - Slow transit constipation Plan Patient reports that she is taking all of her morning medications together which means that pantoprazole she is also taking it after she eats. That might not be effective for her. Patient will stop pantoprazole and will ask pharmacy to get her a script for Nexium separately so she can take it before meals. We will retest her for H pylori next visit she will be returning in 5 weeks. She will stop Nexium 2 weeks before coming to the office and making sure that she is not going to take famotidine for at least 24 hours before testing. Continue avoiding dietary triggers and late night snacking. Staying upright for minimum 3 hours after meals discussed with patient. Patient will continue taking senna as needed. Increase fluid intake and activity to promote better bowel motility. Patient is agreeable to current plan of care and verbalizes understanding of instructions. She was given the opportunity to ask questions and all questions answered. Thank you for allowing me to participate in her care Orders: Orders H Pylori Breath Test Today K21.9 - Gastro-esophageal reflux disease without esophagitis Medications: New esomeprazole magnesium (Nexium) 40 mg PO DAILY 30 caps 2RF K21.9 - Gastro- esophageal reflux disease without esophagitis Discontinued pantoprazole take one tablet half an hour before breakfast Discontinued Reason: Doctor's Order 40 mg PO DAILY 90 tabs 2RF K21.9 - Gastro-esophageal reflux disease without esophagitis Coding Level of Care Code Est Pt Level 4 (47908) Complex EM visit Add On G2211 Diagnoses Gastroesophageal reflux disease, unspecified whether esophagitis present K21.9 Esophagitis presence: esophagitis presence not specified Pharyngoesophageal dysphagia R13.14 Dysphagia type: pharyngoesophageal phase Postprandial epigastric pain R10.13 Postprandial abdominal bloating R14.0 History of Helicobacter pylori infection Z86.19 Slow transit constipation K59.01 Constipation type: slow transit constipation Time Spent (min) 40 Comment 25 minutes spent with patient and additional 15 minutes spent reviewing her records
[2025-03-02 11:48] VITALS: BP 121/67; PULSE 87; BMI 20.6
--- OUTSIDE RECORDS SUMMARY | 2025-03-02 12:36 | XMS_ITS | Encounter Summary ---
Author Organization [employer] Address [address] [facility] [address] [place] [address] Care Team Providers Care Partner Manager Name Role Phone Yolanda Priest MD Primary Care Provider + King Orlando PharmD Unavailable [phone] Reason for Visit * Reason Onset Date Comments Call Back 03/01/2023 Encounter Details Date Type Department Care Team ([facility] st Contact Info) Description 03/01/2023 Telephone [facility] MEDICINE [address] [place], [place] [phone] Yolanda Priest MD [address] [place], [place] [phone] Call Back Social History Tobacco Use Types [...] PM EDT Tc from [facility] with [facility] requesting to speak with a nurse in regards to a mutual pt. She informs is in regards to a medical release form for a physical that is needed, insurance underwriter offer to transferover but she prefers to speak with a nurse but at the end I transfer her over but she still wanted me to send message. Please contact pt at [phone] documented in this encounter Plan of Treatment Upcoming Encounters Date Type Department Care Team (Late st Contact Info) Description 03/05/2025 1:00 PM EDT Medication Management [facility] MEDICINE [address] [place] [address] King Orlando, Aditi [address] [place] [address] 03/15/2025 9:45 AM EDT Office Visit [facility] MEDICINE [address] [place] [address] Yolanda Priest MD [address] [place] [address] 04/19/2025 1:00 PM EDT Office Visit [facility] OPTOMETRY [address] [place] [address] Reyna Jara, OD [address] [place] [address] documented as of this encounter Visit Diagnoses Not on filedocumented in this encounter Additional Health Concerns Assessment Noted Time PHQ-9 Depression Total Score: 7 11/09/19 23 10:16 AM EDT documented as of this encounter Care Teams Partner Manager Relationship Specialty Start Date End Date Yolanda Priest MD [address] [place] [phone] PCP - General Family Medicine 01/10/17 King Orlando, DouglasD [address] [place] [phone] Pharmacist Internal Medicine 10/02/23 documented as of this encounter
== END 2025-03-02 12:20 | disposition home or self-care (01) ==
LOC: HO.HGI 11:46
PROVIDERS: Visit Provider Nurse Practitioner Family
DX: K21.9 Gastro-esophageal reflux disease without esophagitis (principal); R13.14 Dysphagia, pharyngoesophageal phase; R10.13 Epigastric pain; R14.0 Abdominal distension (gaseous); Z86.19 Personal history of other infectious and parasitic diseases; K59.01 Slow transit constipation
CPT/HCPCS: 99214; G2211

== ENCOUNTER → 2025-03-02 11:45 | Outpatient (BNVA) | payer OTHER, SELFPAY | PROVIDERS: Visit Provider Nurse Practitioner Family | DX: K21.9 Gastro-esophageal reflux disease without esophagitis (principal); R13.14 Dysphagia, pharyngoesophageal phase; R10.13 Epigastric pain; R14.0 Abdominal distension (gaseous); K59.01 Slow transit constipation | CPT/HCPCS: 99212 ==

== ENCOUNTER 2025-03-15 10:25 | Outpatient (REF) | payer OTHER, SELFPAY ==
--- OUTSIDE RECORDS SUMMARY | 2025-03-15 11:28 | XMS_ITS | Encounter Summary ---
Author Organization [email or web address] Address [address] [facility] [address] [place] [address] Care Team Providers Care Ultrasonographer Name Role Phone Yolanda Priest MD Primary Care Provider + King Orlando PharmD Unavailable [phone] Reason for Visit * Reason Onset Date Comments Call Back 03/01/2023 Encounter Details Date Type Department Care Team ([facility] st Contact Info) Description 03/01/2023 Telephone [facility] MEDICINE [address] [place], [place] [phone] Yolanda Priest MD [address] [place], [place] [phone] Call Back Social History Tobacco Use Types [...] EDT Tc from [facility] with [facility] requesting to speak with a nurse in regards to a mutual pt. She informs is in regards to a medical release form for a physical that is needed, singer songwriter offer to transferover but she prefers to speak with a nurse but at the end I transfer her over but she still wanted me to send message. Please contact pt at [phone] documented in this encounter Plan of Treatment Upcoming Encounters Date Type Department Care Team (Late st Contact Info) Description 04/19/2025 1:00 PM EDT Office Visit [facility] OPTOMETRY [address] [place] [address] Marek, Reyna, OD [address] [place] [address] 04/30/2025 1:00 PM EDT Medication Management [facility] MEDICINE [address] [place] [address] King Orlando, PharmD [address] [place] [address] documented as of this encounter Visit Diagnoses Not on filedocumented in this encounter Additional Health Concerns Assessment Noted Time PHQ-9 Depression Total Score: 7 11/09/19 23 10:16 AM EDT documented as of this encounter Care Teams Ultrasonographer Relationship Specialty Start Date End Date Yolanda Priest MD [address] [place] [id number] PCP - General Family Medicine 01/10/17 King Orlando, PharmD [address] [place] [phone] Pharmacist Internal Medicine 10/02/23 documented as of this encounter
[2025-03-15 12:07] LABS: Anion Gap 13 (12-20); Blood Urea Nitrogen 17 mg/dL (9-16); Calcium 10.1 mg/dL (8.4-10.2); Carbon Dioxide 25 mmol/L (22-29); Chloride 107 mmol/L (96-108); Estimated Glomerular Filt Rate > 60; Potassium 5.6 mmol/L (3.3-5.1); Sodium 139 mmol/L (135-145)
[2025-03-15 12:18] LABS: Microalbum/Creatinine Ratio Ur 77.7 ug/mg cr (<30)
== END 2025-03-15 10:26 | disposition home or self-care (01) ==
LOC: HO.HHCL 10:25
PROVIDERS: PCP Internal Medicine; Visit Provider Internal Medicine
DX: E11.22 Type 2 diabetes mellitus with diabetic chronic kidney disease (principal); N18.9 Chronic kidney disease, unspecified; Z79.4 Long term (current) use of insulin
CPT/HCPCS: 36415; 80048; 82043; 82570

== ENCOUNTER 2025-03-30 09:54 | Outpatient (REF) | payer OTHER, SELFPAY ==
--- OUTSIDE RECORDS SUMMARY | 2025-03-30 11:11 | XMS_ITS | Encounter Summary ---
Author Organization [employer] Address [address] [facility] 7t [place] [address] Care Team Providers Care Licensed Clinical Social Worker Name Role Phone Yolanda Priest MD Primary Care Provider + King Orlando PharmD Unavailable [phone] Reason for Visit * Reason Onset Date Comments Appointment Request 02/25/2025 Encounter Details Date Type Department Care Team ([facility] st Contact Info) Description 02/25/2025 Telephone [facility] MEDICINE 230 [place], [place] [phone] Yolanda Priest MD 230 [place], [place] [phone] Appointment Request Social History Tobacco Use Types [...] * Telephone Encounter - Jhon Coelho - 02/25/2025 9:08 AM EDT Tc from pt requesting to reschedule CDTM visit today. Please contact pt at [phone]. (Turkish Speaker) documented in this encounter Plan of Treatment Upcoming Encounters Date Type Department Care Team (Late st Contact Info) Description 04/19/2025 1:00 PM EDT Office Visit [facility] OPTOMETRY [address] [place] [address] Reyna Jara, OD 230 [place] [address] 04/30/2025 1:00 PM EDT Medication Management [facility] MEDICINE [address] [place] [address] King Orlando, PharmD 230 [place] [address] 05/19/2025 10:00 AM EDT Office Visit [facility] MEDICINE 230 [place] [address] Yolanda Priest MD [address] [place] [address] documented as of this encounter Goals Goal Patient Goal Type Associated Problems Recent Progress Patient-Stated? Author Blood Pressure < 140/90 Blood Pressure 120/70(2024 9:21 AM EDT) No King Orlando PharmD Hemoglobin A1c < 7 Result Component 9.3( 1:55 PM EDT) No King Orlando PharmD documented as of this encounter Visit Diagnoses Not on filedocumented in this encounter Additional Health Concerns Assessment Noted Time PHQ-9 Depression Total Score: 13 02/23/ 024 1:39 PM EDT documented as of this encounter Care Teams Licensed Clinical Social Worker Relationship Specialty Start Date End Date Yolanda Priest MD [address] [place] [address] PCP - General Family Medicine 01/10/17 King Orlando, DouglasD [address] [place] [address] Pharmacist Internal Medicine 10/02/23 documented as of this encounter
--- OUTSIDE RECORDS SUMMARY | 2025-03-30 11:11 | XMS_ITS | Encounter Summary ---
Author Organization [employer] Address 75 [facility] 7t [place] [address] Care Team Providers Care Cigar Brander Name Role Phone Yolanda Priest MD Primary Care Provider + King Orlando PharmD Unavailable [phone] Reason for Visit * Reason Onset Date Comments Prior Authorization 09/01/2024 Encounter Details Date Type Department Care Team (Late st Contact Info) Description 09/01/2024 Telephone [facility] MEDICINE 230 [place], [place] [phone] Yolanda Priest MD 230 [place], [place] [phone] Prior Authorization Social History Tobacco Use Types [...] Patient picked up Mitch 3 reader from [facility] pharmacy 08/14/2024. * Telephone Encounter - Dez Porter - 09/01/2024 9:12 AM EST PA request for Continuous Glucose Sensor (FreeStyle Mitch 3 Plus Sensor) [facility] [place] [place]. documented in this encounter Plan of Treatment Upcoming Encounters Date Type Department Care Team (Late st Contact Info) Description 04/19/2025 1:00 PM EDT Office Visit [facility] OPTOMETRY [address] [place] [address] Reyna Jara, OD 230 [place] [address] 04/30/2025 1:00 PM EDT Medication Management [facility] MEDICINE [address] [place] [address] King Orlando PharmD 230 [place] [address] 05/19/2025 10:00 AM EDT Office Visit [facility] 230 [place] [address] Yolanda Priest MD 230 [place] [address] documented as of this encounter Goals Goal [...] documented as of this encounter Care Teams Cigar Brander Relationship Specialty Start Date End Date Yolanda Priest MD [address] [place] [address] PCP - General Family Medicine 01/10/17 King Orlando PharmD [address] [place] [address] Pharmacist Internal Medicine 10/02/23 documented as of this encounter
--- OUTSIDE RECORDS SUMMARY | 2025-03-30 11:11 | XMS_ITS | Encounter Summary ---
Author Organization [employer] Address [address] [facility] 7t [place] [address] Care Team Providers Care Wireworker Supervisor Name Role Phone Yolanda Priest MD Primary Care Provider + King Orlando PharmD Unavailable [phone] Encounter Details Date Type Department Care Team (Late st Contact Info) Description 03/05/2025 Refill [facility] MEDICINE 230 [place], [place] [phone] Yolanda Priest MD 230 [place], [place] [phone] Type 2 diabetes mellitus with chronic kidney disease, with long-term current use of insulin, unspecified CKD stage (CMS/HCC) Social History Tobacco Use Types Packs/Day Years [...] in a car, or in a park 03/05/[address] you li ve. Do you have problems with any of the following? None of the above 03/05/2025 Food Insecurity Answer Date Recorded Within the past 12 months, y ou worried that your food would run out before you got money to buy more: Never True 03/05/2025 Within the past 12 months,th e food you bought just didn't last and you didn't have enough money to get more: Never True 02/2025 Transportation Answer Date Recorded In the past 12 months, has l ack of transportation kept you from medical appts, meetings, work or from getting things needed for daily living? No 03/05/2025 Utilities Answer Date Recorded In the past 12 months, has t he electric, gas, oil or water company threatened to shut off services in your home? No 03/05/2025 Depression Answer Date Recorded Patient Health Questionnaire-2 Score 5 02/24/2024 Internet Access Answer Date Recorded Internet Access Q1 Yes 03/05/2025 Internet Access Q2 Not on file 03/05/2025 Comments Unknown Sex and Gender Information Value [...] Description 04/19/2025 1:00 PM EDT Office Visit [facility] OPTOMETRY [address] [place] [address] Marek, Reyna, OD 230 [place] [address] 04/30/2025 1:00 PM EDT Medication Management [facility] 230 [place] [address] King Orlando, PharmD 230 [place] [address] 05/19/2025 10:00 AM EDT Office Visit [facility] [address] [place] [address] Yolanda Priest MD 230 [place] [address] documented as of this encounter Goals Goal Patient Goal Type Associated Problems Recent Progress Patient-Stated? Author Blood Pressure < 140/90 Blood Pressure 120/70(2024 9:21 AM EDT) No King Orlando PharmD Hemoglobin A1c < 7 Result Component 9.3( 1:55 PM EDT) No King Orlando PharmD documented as of this encounter Visit Diagnoses Diagnosis Type 2 diabetes mellitus with chronic kidney disease, with long-term current use of insulin, unspecified CKD stage (CMS/HCC) documented in this encounter Additional Health Concerns Assessment Noted Time PHQ-9 Depression Total Score: 13 02/23/ 024 1:39 PM EDT documented as of this encounter Care Teams Wireworker Supervisor Relationship Specialty Start Date End Date Yolanda Priest MD 230 [place] [address] PCP - General Family Medicine 01/10/17 King Orlando PharmD [address] [place] [address] Pharmacist Internal Medicine 10/02/23 documented as of this encounter
--- OUTSIDE RECORDS SUMMARY | 2025-03-30 11:11 | XMS_ITS | Encounter Summary ---
Author Organization [employer] Address [address] [facility] 7t [place] [address] Care Team Providers Care Electrical Prospecting Observer Name Role Phone Yolanda Priest MD Primary Care Provider + King Orlando PharmD Unavailable [phone] Encounter Details Date Type Department Care Team (Late st Contact Info) Description 11/27/2022 Orders Only [facility] MEDICINE 230 [place], [place] [phone] Yolanda Priest MD 230 [place], [place] [phone] Uncontrolled type 2 diabetes mellitus with hyperglycemia [...] Description 04/19/2025 1:00 PM EDT Office Visit [facility] OPTOMETRY [address] [place] [address] Marek Reyna, OD 230 [place] [address] 04/30/2025 1:00 PM EDT Medication Management [facility] MEDICINE 230 [place] [address] King Orlando, Aditi 230 [place] [address] 05/19/2025 10:00 AM EDT Office Visit [facility] MEDICINE [address] [place] [address] Yolanda Priest MD 230 [place] [address] documented as of this encounter Visit Diagnoses Diagnosis Uncontrolled type 2 diabetes mellitus with hyperglycemia (CMS/HCC)- Primary documented in this encounter Additional Health Concerns Assessment Noted Time PHQ-9 Depression Total Score: 7 11/09/19 23 10:16 AM EDT documented as of this encounter Care Teams Electrical Prospecting Observer Relationship Specialty Start Date End Date Yolanda Priset MD [address] [place] [address] PCP - General Family Medicine 01/10/17 King Orlando, Aditi [address] [place] [address] Pharmacist Internal Medicine 10/02/23 documented as of this encounter
--- OUTSIDE RECORDS SUMMARY | 2025-03-30 11:11 | XMS_ITS | Encounter Summary ---
Author Organization [email or web address] Address [address] [facility] 7t [place] [address] Care Team Providers Care Grain Picker Name Role Phone Yolanda Priest MD Primary Care Provider + King Orlando PharmD Unavailable [phone] Reason for Visit * Reason Onset Date Comments Med Refill 09/01/2024 Encounter Details Date Type Department Care Team (Late st Contact Info) Description 09/01/2024 Telephone [facility] MEDICINE 230 [place], [place] [phone] Yolanda Priest MD 230 [place], [place] [phone] Med Refill Social History Tobacco Use Types [...] with others, in a hotel, in a jail, living outside on the street, on a [...] 09/01/2024 9:33 AM EST Medication sent to [facility] 07/17/24 #30 with 11 refills. * Telephone Encounter - Dez Porter - 09/01/2024 8:55 AM EST TC from pt requesting medication refill. Medications needing refill : Continuous Glucose Sensor (FreeStyle Mitch 3 Plus Sensor) [facility] [place] glipiZIDE XL (Glucotrol XL) 10 MG 24 hr tablet To be sent to: [facility] - [place], [place] - [address] documented in this encounter Plan of Treatment Upcoming Encounters Date Type Department Care Team (Late st Contact Info) Description 04/19/2025 1:00 PM EDT Office Visit [facility] OPTOMETRY [address] [place] [address] Marek Reyna, OD 230 [place] [address] 04/30/2025 1:00 PM EDT Medication Management [facility] MEDICINE [address] [place] [address] King Orlando PharmD 230 [place] [address] 05/19/2025 10:00 AM EDT Office Visit [facility] MEDICINE [address] [place] [address] Yolanda Priest MD 230 [place] [address] documented as of this encounter Goals Goal [...] documented as of this encounter Care Teams Grain Picker Relationship Specialty Start Date End Date Yolanda Priest MD [address] [place] [address] PCP - General Family Medicine 01/10/17 King Orlando PharmD [address] [place] [address] Pharmacist Internal Medicine 10/02/23 documented as of this encounter
--- OUTSIDE RECORDS SUMMARY | 2025-03-30 11:11 | XMS_ITS | Encounter Summary ---
Author Organization [employer] Address [address] [place] [address] 7t [place] [address] Care Team Providers Care Hand Candle Molder Name Role Phone Yolanda Priest MD Primary Care Provider + King Orlando PharmD Unavailable [phone] Encounter Details Date Type Department Care Team (Late Contact Info) Description 02/22/2023 Orders Only [facility] MEDICINE [address] [place] [address] [phone] Alice Jennings LPN Social History Tobacco Use [...] Department Care Team (Late Contact Info) Description 04/19/2025 1:00 PM EDT Office Visit [facility] OPTOMETRY [address] [place], [place] [phone] Reyna Jara, OD 230 [place], [place] [phone] 04/30/2025 1:00 PM EDT Medication Management [facility] MEDICINE [address] [place] [address] King Orlando, PharmD [address] [place] [address] 05/19/2025 10:00 AM EDT Office Visit [facility] MEDICINE 230 [place] [address] Yolanda Priest MD [address] [place] [address] documented as of this encounter Visit Diagnoses Not on filedocumented in this encounter Additional Health Concerns Assessment Noted Time PHQ-9 Depression Total Score: 7 11/09/19 23 10:16 AM EDT documented as of this encounter Care Teams Hand Candle Molder Relationship Specialty Start Date End Date Yolanda Priest MD [address] [place] [address] PCP - General Family Medicine 01/10/17 King Orlando, PharmD [address] [place] [address] Pharmacist Internal Medicine 10/02/23 documented as of this encounter
--- OUTSIDE RECORDS SUMMARY | 2025-03-30 11:11 | XMS_ITS | Encounter Summary ---
Author Organization [employer] Address [address] [facility] [address] 7t [place] [address] Care Team Providers Care Federal Aid Coordinator Name Role Phone Yolanda Priest MD Primary Care Provider + King Orlando PharmD Unavailable [phone] Encounter Details Date Type Department Care Team (Late st Contact Info) Description 10/28/2024 Telephone [facility] OPTOMETRY [address] [place], [place] [phone] Marek, Reyna, OD [address] [place], [place] [phone] Social History Tobacco Use Types Packs/Day Years [...] # SUBSCRIBER ID Referring Provider Information: Reyna Jara OD PCP: Appointment: Date: Time: Urgency: Referral Type: Diagnosis: Refer to Provider: MARY HAGEN Address: [facility] [address] [place] [address] documented in this encounter Plan of Treatment Upcoming Encounters Date Type Department Care Team ([facility] st Contact Info) Description 04/19/2025 1:00 PM EDT Office Visit [facility] OPTOMETRY [address] [place], [place] [phone] Reyna Jara, OD [address] [place] [address] 04/30/2025 1:00 PM EDT Medication Management [address] [address] King Orlando PharmD [address] [place] [address] 05/19/2025 10:00 AM EDT Office Visit [facility] MEDICINE [address] [place] [address] [phone] Yolanda Priest MD [address] [place] [address] documented as of this encounter Goals Goal [...] documented as of this encounter Care Teams Federal Aid Coordinator Relationship Specialty Start Date End Date Yolanda Priest MD [address] [place] [address] [phone] PCP - General Family Medicine 01/10/17 King Orlando PharmD [address] [place] [address] [phone] Pharmacist Internal Medicine 10/02/23 documented as of this encounter
--- OUTSIDE RECORDS SUMMARY | 2025-03-30 11:11 | XMS_ITS | Encounter Summary ---
Author Organization [employer] Address [address] [facility] 7t [place] [address] Care Team Providers Care Foreign Diplomat Name Role Phone Yolanda Priest MD Primary Care Provider + King Orlando PharmD Unavailable [phone] Reason for Visit * Reason Comments Med Refill Encounter Details Date Type Department Care Team (Late st Contact Info) Description 05/07/2023 Refill [facility] ADULT DENTAL 230 [place], [place] [phone] Virgil Santoyo, STEVEN 230 [place], [place] [phone] Social History Tobacco Use Types Packs/Day Years [...] with others, in a hotel, in a half-way, living outside on the street, on a [...] Description 04/19/2025 1:00 PM EDT Office Visit [facility] OPTOMETRY [address] [place] [address] Reyna Jara, OD 230 [place] [address] 04/30/2025 1:00 PM EDT Medication Management [facility] MEDICINE 230 [place] [address] King Orlando, PharmD 230 [place] [address] 05/19/2025 10:00 AM EDT Office Visit [facility] MEDICINE 230 [place] [address] Yolanda Priest MD 230 [place] [address] documented as of this encounter Visit Diagnoses Not on filedocumented in this encounter Additional Health Concerns Assessment Noted Time PHQ-9 Depression Total Score: 7 11/09/19 23 10:16 AM EDT documented as of this encounter Care Teams Foreign Diplomat Relationship Specialty Start Date End Date Yolanda Priest MD 230 [place] [address] PCP - General Family Medicine 01/10/17 King Orlando PharmD 230 [place] [address] Pharmacist Internal Medicine 10/02/23 documented as of this encounter
--- OUTSIDE RECORDS SUMMARY | 2025-03-30 11:11 | XMS_ITS | Encounter Summary ---
Author Organization [employer] Address [address] [facility] 7t [place] [address] Care Team Providers Care Toe Puller Name Role Phone Yolanda Priest MD Primary Care Provider + King Orlando PharmD Unavailable [phone] Reason for Visit * Reason Onset Date Comments Call Back 03/01/2023 Encounter Details Date Type Department Care Team ([facility] st Contact Info) Description 03/01/2023 Telephone [facility] MEDICINE 230 [place], [place] [phone] Yolanda Priest MD 230 [place], [place] [phone] Call Back Social History Tobacco Use Types [...] PM EDT Tc from [employer] with [facility] [place] [facility] requesting to speak with a nurse in regards to a mutual pt. She informs is in regards to a medical release form for a physical that is needed, director underwriter sales offer to transferover but she prefers to speak with a nurse but at the end I transfer her over but she still wanted me to send message. Please contact pt at [phone] documented in this encounter Plan of Treatment Upcoming Encounters Date Type Department Care Team (Late st Contact Info) Description 04/19/2025 1:00 PM EDT Office Visit [facility] OPTOMETRY [address] [place] [address] Marek, Megan, OD 230 [place] [address] 04/30/2025 1:00 PM EDT Medication Management [facility] MEDICINE 230 [place] [address] King Orlando, Aditi 230 [place] [address] 05/19/2025 10:00 AM EDT Office Visit [facility] MEDICINE [address] [place] [address] Yolanda Priest MD 230 [place] [address] documented as of this encounter Visit Diagnoses Not on filedocumented in this encounter Additional Health Concerns Assessment Noted Time PHQ-9 Depression Total Score: 7 11/09/19 23 10:16 AM EDT documented as of this encounter Care Teams Toe Puller Relationship Specialty Start Date End Date Yolanda Priest MD [address] [place] [address] PCP - General Family Medicine 01/10/17 King Orlando, DouglasD [address] [place] [address] Pharmacist Internal Medicine 10/02/23 documented as of this encounter
--- OUTSIDE RECORDS SUMMARY | 2025-03-30 11:11 | XMS_ITS | Encounter Summary ---
Author Organization [employer] Address [address] [facility] 7t [place] [address] Care Team Providers Care Regional Controller Name Role Phone Yolanda Priest MD Primary Care Provider + King Orlando PharmD Unavailable Reason for Visit * Reason Onset Date Comments Appointment Request 07/03/2024 Encounter Details Date Type Department Care Team ([facility] st Contact Info) Description 07/03/2024 Telephone [facility] MEDICINE 230 [place], [place] [phone] Yolanda Priest MD 230 [place], [place] [phone] Appointment Request Social History Tobacco Use Types [...] with others, in a hotel, in a alf, living outside on the street, on a [...] King from 06/24. Please contact pt at [phone]. (Vietnamese Speaker) documented in this encounter Plan of Treatment Upcoming Encounters Date Type Department Care Team (Late st Contact Info) Description 04/19/2025 1:00 PM EDT Office Visit [facility] OPTOMETRY [address] [place], [place] [phone] Reyna Jara, OD 230 [place] [address] 04/30/2025 1:00 PM EDT Medication Management [facility] MEDICINE 230 [place], [place] [phone] King Orlando, PharmD 230 [place] [address] 05/19/2025 10:00 AM EDT Office Visit [facility] MEDICINE [address] [place] [address] Yolanda Priest MD 230 [place] [address] documented as of this encounter Goals Goal [...] documented as of this encounter Care Teams Regional Controller Relationship Specialty Start Date End Date Yolanda Priest MD [address] [place] [address] PCP - General Family Medicine 01/10/17 King Orlando, DouglasD [address] [place] [address] Pharmacist Internal Medicine 10/02/23 documented as of this encounter
--- OUTSIDE RECORDS SUMMARY | 2025-03-30 11:11 | XMS_ITS | Encounter Summary ---
Author Organization [employer] Address [address] [facility] 7t [place] [address] Care Team Providers Care Group Activities Aide Name Role Phone Yolanda Priest MD Primary Care Provider + King rOlando PharmD Unavailable [phone] Reason for Visit * Reason Onset Date Comments Appointment Request 10/26/2024 Encounter Details Date Type Department Care Team ([facility] st Contact Info) Description 10/26/2024 Telephone [facility] MEDICINE 230 [place], [place] [phone] Yolanda Priest MD 230 [place], [place] [phone] Appointment Request Social History Tobacco Use Types [...] with others, in a hotel, in a assisted, living outside on the street, on a [...] Description 04/19/2025 1:00 PM EDT Office Visit [facility] OPTOMETRY [address] [place], [place] [phone] Marek, Reyna, OD 230 [place] [address] 04/30/2025 1:00 PM EDT Medication Management [facility] MEDICINE 230 [place], [place] [phone] King Orlando, PharmD 230 [place] [address] 05/19/2025 10:00 AM EDT Office Visit [facility] MEDICINE [address] [place] [address] Yolanda Priest MD [address] [place] [address] documented as of this encounter Goals Goal [...] documented as of this encounter Care Teams Group Activities Aide Relationship Specialty Start Date End Date Yolanda Priest MD [address] [place] [address] PCP - General Family Medicine 01/10/17 King Orlando, DouglasD [address] [place] [address] Pharmacist Internal Medicine 10/02/23 documented as of this encounter
--- OUTSIDE RECORDS SUMMARY | 2025-03-30 11:11 | XMS_ITS | Encounter Summary ---
Author Organization [employer] Address [address] [facility] [address] [place] [address] Care Team Providers Care Bench Manager Name Role Phone Yolanda Priest MD Primary Care Provider + King Orlando PharmD Unavailable [phone] Reason for Visit * Reason Comments Med Refill Encounter Details Date Type Department Care Team (Late st Contact Info) Description 02/06/2025 Refill [facility] [address], [place] [phone] King Orlando, PharmD [address] [place], [place] [phone] Uncontrolled type 2 diabetes mellitus with hyperglycemia ([facility]) Social History Tobacco Use Types Packs/Day Years [...] Description 04/19/2025 1:00 PM EDT Office Visit [facility] [address] [place] [address] Marek, Reyna, OD [address] [place] [address] 04/30/2025 1:00 PM EDT Medication Management [facility] [address] [place] [address] King Orlando, PharmD [address] [place] [address] 05/19/2025 10:00 AM EDT Office Visit [facility] [address] [place] [id number] Yolanda Priest MD [address] [place] [address] documented as of this encounter Goals Goal Patient Goal Type Associated Problems Recent Progress Patient-Stated? Author Blood Pressure < 140/90 Blood Pressure 120/70(2024 9:21 AM EDT) No King Orlando PharmD Hemoglobin A1c < 7 Result Component 9.3( 1:55 PM EDT) No King Orlando PharmD documented as of this encounter Visit Diagnoses Diagnosis Uncontrolled type 2 diabetes mellitus with hyperglycemia ([facility]) documented in this encounter Additional Health Concerns Assessment Noted Time PHQ-9 Depression Total Score: 13 024 1:39 PM EDT documented as of this encounter Care Teams Bench Manager Relationship Specialty Start Date End Date Yolanda Priest MD [address] [place] [address] PCP - General Family Medicine 01/10/17 King Orlando PharmD [address] [place] [id number] Pharmacist Internal Medicine 10/02/23 documented as of this encounter
--- OUTSIDE RECORDS SUMMARY | 2025-03-30 11:11 | XMS_ITS | Clinical Summary ---
Author Organization [employer] Address [address] [facility] [address] [place] [address] Care Team Providers Care Broommaker Name Role Phone Yolanda Priest MD Primary Care Provider + King Orlando PharmD Unavailable [phone] Allergies No known active allergies Medications melatonin 3 MG tablet TAKE 1 TO 2 TABLETS BY MOUTH AT BEDTIME NEEDED 2023 Active Blood Pressure Monitor kit Use as directed 3x/week 1 kit 2023 Active busPIRone (Buspar) 15 MG tablet TAKE 1 TABLET BY MOUTH TWICE DAILY IN THE MORNING AND IN THE EVENING 2023 Active famotidine (Pepcid) 20 MG tablet Take 20 mg by mouth at bedtime. 2023 Active meclizine (Antivert) 12.5 MG tablet TAKE 1 TABLET ORALLY 3 TIMES A DAY NEEDED FOR DIZZINESS 2023 Active glipiZIDE XL (Glucotrol XL) 10 MG 24 hr tabletIndications:Type 2 diabetes mellitus with chronic kidney disease, with long-term current use of insulin, unspecified CKD stage (CMS/HCC) Take 1 tablet (10 mg) by mouth Once per day. Do not crush, chew, or split. 30 tablet 11 07/17 Active Continuous Glucose [employer] Attorney (FreeStyle Mitch 3 Rawlins) deviceIndications:Type 2 diabetes mellitus with chronic kidney disease, with long-term current use of insulin, unspecified CKD stage (CMS/HCC) 1 Device Use as directed. Use to check BG as directed 1 each 2024 Active TRUEplus Lancets 33G miscIndications:Uncont rolled [...] per day. 30 tablet 11 2024 Active glucose blood (FreeStyle Precision Akash Test) test stripIndications:Uncon trolled type 2 diabetes mellitus with hyperglycemia (CMS/HCC) USE DIRECTED TO TEST BLOOD SUGAR THREE TIMES DAILY 50 strip 5 2024 Active Acetaminophen Extra Strength 500 MG tablet TAKE 1 TABLET BY MOUTH EVERY 6 HOURS NEEDED FOR MILD PAIN 120 tablet 2024 Active empagliflozin-metFORMI N ER (Synjardy XR) 12.5-1000 MG 24 hr tabletIndications:Type 2 diabetes mellitus with chronic kidney disease, with long-term current use of insulin, unspecified CKD stage (CMS/HCC) Take 1 tablet by mouth with breakfast and with evening meal. 60 tablet 11 2024 Active ergocalciferol (Vitamin D2) 1.25 MG (74604 UT) capsuleIndications:Pur e hypercholesterolemia TAKE 1 CAPSULE BY MOUTH ONCE A WEEK 12 capsule 1 2024 Active rosuvastatin (Crestor) 40 MG tabletIndications:Unco ntrolled type 2 diabetes mellitus with hyperglycemia (CMS/HCC) TAKE 1 TABLET BY MOUTH EVERY DAY 90 tablet 3 2024 Active lisinopril 10 MG tabletIndications:Esse ntial hypertension TAKE 1 TABLET BY MOUTH EVERY DAY 90 tablet 3 2024 Active ezetimibe (Zetia) 10 MG tabletIndications:Type 2 diabetes mellitus with chronic kidney disease, with long-term current use of insulin, unspecified CKD stage (CMS/HCC) TAKE 1 TABLET BY MOUTH ONCE DAILY 90 tablet 1 2024 Active Continuous Glucose Sensor (FreeStyle Mitch 3 Plus Sensor) miscIndications:Type 2 diabetes mellitus with chronic kidney disease, with long-term current use of insulin, unspecified CKD stage (CMS/HCC) Apply 1 Device topically every 15 days. 2 each 2024 Active insulin pen needle (Pentips) 32G x 4 mm miscIndications:Uncont rolled type 2 diabetes mellitus with hyperglycemia (CMS/HCC) Use three times daily with insulin as directed 100 each 5 2024 Active glucose 4 g chewable tabletIndications:Type 2 diabetes mellitus with chronic kidney disease, with long-term current use of insulin, unspecified CKD stage (CMS/HCC) Chew 4 tablets (16 g) if needed for low blood sugar. 30 tablet 03/05 Active esomeprazole (NexIUM) [address] capsule Take 40 mg by mouth in the morning. 2024 Active insulin aspart (NovoLOG FLEXPEN) 100 UNIT/ML penIndications:Type 2 diabetes mellitus with chronic kidney disease, with long-term current use of insulin, unspecified CKD stage (CMS/HCC) Inject 6 units subcutaneously before breakfast and 6 units before dinner as directed. 2024 Active insulin degludec (Tresiba FlexTouch) 100 UNIT/ML injectionIndications:U ncontrolled type 2 diabetes mellitus with hyperglycemia (CMS/HCC) INJECT 20 UNITS SUBCUTANEOUSLY ONCE DAILY 3 mL 11 2024 Active insulin pen needle (Pentips) 32G x 4 mm miscIndications:Uncont rolled type 2 diabetes mellitus with hyperglycemia (CMS/HCC) Use daily with insulin 100 each 3 03/05 Discontinued( Reorder (will not trigger notification to Pharmacy)) pantoprazole (ProtoNix) 40 MG EC tablet TAKE 1 TABLET BY MOUTH EVERY DAY 30 MINUTES BEFORE BREAKFAST 03/05 Discontinued( Alternate therapy) Continuous Glucose Sensor (FreeStyle Mitch 3 Plus Sensor) miscIndications:Type 2 diabetes mellitus with chronic kidney disease, with long-term current use of insulin, unspecified CKD stage (CMS/HCC) Apply 1 Device topically every 15 days. 2 each 5 03/05 Discontinued( Reorder (will not trigger notification to Pharmacy)) ezetimibe (Zetia) 10 MG tabletIndications:Type 2 diabetes mellitus with chronic kidney disease, with long-term current use of insulin, unspecified CKD stage ([facility]) Take 1 tablet (10 mg) by mouth Once per day. 90 tablet 1 03/02 Discontinued insulin aspart (NovoLOG FLEXPEN) 100 UNIT/ML penIndications:Type 2 diabetes mellitus with chronic kidney disease, with long-term current use of insulin, unspecified CKD stage ([facility]/HCC) Inject 5 units subcutaneously twice daily before lunch and dinner. 03/05 Discontinued( Reorder (will not trigger notification to Pharmacy)) insulin degludec (Tresiba FlexTouch) 100 UNIT/ML injectionIndications:U ncontrolled type 2 diabetes mellitus with hyperglycemia ([facility]) INJECT 20 UNITS SUBCUTANEOUSLY ONCE DAILY 15 mL 5 03/11 Discontinued( Reorder (will not trigger notification to Pharmacy)) insulin aspart (NovoLOG FLEXPEN) 100 UNIT/ML penIndications:Type 2 diabetes mellitus with chronic kidney disease, with long-term current use of insulin, unspecified CKD stage ([facility]) Inject 5 units subcutaneously before breakfast and 6 units before dinner as directed. 15 mL 3 03/11 Discontinued( Reorder (will not trigger notification to Pharmacy)) insulin degludec (Tresiba FlexTouch) 100 UNIT/ML injectionIndications:U ncontrolled type 2 diabetes mellitus with hyperglycemia ([facility]) INJECT 16 UNITS SUBCUTANEOUSLY ONCE DAILY 03/15 Discontinued( Reorder (will not trigger notification to Pharmacy)) sodium zirconium cyclosilicate (Lokelma) 5 g packet Take 5 g by mouth Once per day for 2 days. 10 g 03/15 Discontinued( Availability) sodium zirconium cyclosilicate (Lokelma) 10 g packet Take 10 g by mouth Once per day for 2 days. 20 g 03/15 Discontinued( Availability) Sodium Polystyrene Sulfonate (SPS, Sodium Polystyrene Sulf,) 15 GM/60ML suspension Take 60 mL (15 g) by mouth Once per day for 2 days. 120 mL 03/17 Active Problems Problem Noted Date Diagnosed Date Weakness 03/15/2025 Assessment & Plan (03/15/2025 5:15 PM EDT): Resolved, probably related to some of the medication that she inadvertently took. I discussed with patient the portance of double checking medications, told her that by no means it was her fault to have taking medications not prescribed to her for few days. She will bring all her medications at next visit, medications were double checked by the pharmacy recently and reconciled properly Fall 08/27/2024 Encounter for cervical Pap smear with pelvic [...] of home lessness 04/20/2023 Assessment & Plan (03/15/2025 5:12 PM EDT): Still living with son and his family, has applied to move out to an another apartment since 2022. Will have livestock caretaker/S [facility] program to follow-up with her Assessment & Plan (04/20/2023 2:19 PM EDT): Son and family will move out soon and they have leasing contract. Refer to [facility] to help her with rent [...] with hyper glycemia 06/25/2022 Assessment & Plan (03/15/2025 5:11 PM EDT): It's probably a slowly improving, she needs to be more compliant with meals. We discussed in length regarding importance of meal portions and small and frequent meals-every 4-5 hours-. No medication changes today, continue Synjardy, glipizide, Januvia, Humalog AC meals and Tresiba 20 units (stressed importance of using 20 units every day) and follow-up with [facility] program in 1 month, with me in 6 to 8 weeks. Assessment & Plan (02/24/2024 2:13 PM EDT): [...] uncontrolled., pt will fu with endo at [facility] next week. pt to bring glucometer to pharmacy vs order new glucometer continue lantus 40 units + Humalog TID ac meals + po medications. FU with me in 3 months Assessment & Plan (11/08/2022 10:55 AM EDT): Uncontrolled. Increase lantus to 40 units, no change in other medications FU with me in 4 weeks. refer to perennial house manager and reminded pt to be complaint with [...] prn CP/[facility]OOKS/[place] Non smoking patient. Dysarthria 06/25/2022 Tendinitis of right rotator cuff 06/25/2022 Closed fracture of metatarsal bone of left foot 06/25/2022 Acute frontal sinusitis 06/25/2022 Hyperkalemia 12/19/2018 Assessment & Plan (02/24/2024 2:13 PM EDT): On recent labs, took Kayexalate. Repeat K today. Advised re low K diet. Recurrent major depression in partial remission 11/07/2018 Assessment & Plan (03/15/2025 5:14 PM EDT): PHQ-9 is 3, she feels safe at home and is able to reach out for safety Continue to follow-up with mental health team (Radha Villa and psychiatrist) Laryngitis 11/07/2018 Anxiety 02/18/2018 Acquired palmar and [...] Problem Noted Date Diagnosed Date Resolved Date COVID-19 06/25/2022 03/15/2025 Adjustment disorder with depressed mood 06/25/2022 03/15/2025 Elevated blood pressure reading 04/23/2018 11/26/2023 Encounters Date Type Department Care Team Description 03/16/2025 Patient Outreach [facility] [place] [address] James Durbin Care Coordination (CHW outreach for SDOH housing search-LVM ) 03/15/2025 9:45 AM EDT Office Visit [facility] [address] [place] [phone] Yolanda Priest MD Uncontrolled type 2 diabetes mellitus with hyperglycemia (CMS/HCC) (Primary Dx); Housing instability due to imminent risk of homelessness; Recurrent major depression in partial remission (CMS/HCC); Weakness 03/15/2025 Results Follow-Up [address] [address] Yolanda Priest MD Basic Metabolic Panel, Albumin, Random Urine W/Creatinine 03/15/2025 Orders Only [facility] [address] [place] [phone] Yolanda Priest MD 03/15/2025 Travel 03/12/[address] [phone] Yolanda Priest MD Chart Prep 03/11/[address] [address] King Orlando, PharmD 03/05/[address] [address] Yolanda Priest MD Type 2 diabetes mellitus with chronic kidney disease, with long-term current use of insulin, unspecified CKD stage (CMS/HCC) 03/05/2025 Travel 03/05/2025 Patient Outreach [facility] [address] [place] [phone] Yolanda Priest MD Care Coordination (CHW outreach for SDOH housing search-referral completed ) 03/05/2025 Patient Outreach [facility] [address] [place] [phone] Yolanda Priest MD Pre-visit Planning (SDOH screening positive and tobacco screening negative) 02/28/2025 Refill [facility] [address] [facility] [place] [address] King Orlando, Aditi Type 2 diabetes mellitus with chronic kidney disease, with long-term current use of insulin, unspecified CKD stage (CMS/HCC) 02/25/2025 Telephone [facility] [address] [place] [address] Yolanda Priest MD Appointment Request 02/17/2025 Refill [facility] [address] [place] [address] King Orlando, Aditi Uncontrolled type 2 diabetes mellitus with hyperglycemia (CMS/[facility]) 02/06/2025 Refill [facility] [address] [place] [address] King Orlando PharmD Uncontrolled type 2 diabetes mellitus with hyperglycemia (CMS/HCC) 01/28/2025 Refill [facility] [address] [place] [address] King Orlando PharmD Uncontrolled type 2 diabetes mellitus with hyperglycemia ([facility]); Essential hypertension 01/22/2025 Refill [facility] [address] [place] [address] Yolanda Priest MD Pure hypercholesterolemia 01/12/2025 Travel 01/05/2025 Telephone [facility] [address] [place] [address] Yolanda Priest MD Appointment Request 01/05/2025 Telephone [facility] [address] [place] [address] Yolanda Priest MD Appointment Request from Last 3 Months Immunizations Immunization Administration [...] e alcohol) rare Alcohol Answer Date Recorded How often do you have a drink containing alcohol ? 0 03/15/2025 Average Number of Drinks Not on file 025 How often do you have six or more drinks on one occasion? 0 03/15/2025 Depression Answer Date Recorded Patient Health Questionnaire-9 Score 3 03/15/2025 Patient Health Questionnaire-9 Score 3 03/15/2025 Last PHQ-9: Questionnaire Data Not on file 0 03/15/2025 Housing Stability Answer Date Recorded What is [...] Answer Date Recorded Patient Health Questionnaire-2 Score 1 03/15/2025 Internet Access Answer Date Recorded Internet Access [...] Sign Reading Time Taken Comments Blood Pressure 120/70 03/15/2025 9:21 AM EDT Pulse 84 03/15/2025 9:21 AM EDT Temperature 35.6 C (96 F) 03/15/2025 9:21 AM EDT Respiratory Rate 18 03/15/2025 9:21 AM EDT Oxygen Saturation 100% 03/15/2025 9:21 AM EDT Inhaled Oxygen Concentration - - Weight 57.1 kg (125 lb 12.8 oz) 03/15/2025 9:21 AM EDT Height 162.6 cm (5' 4 ) 03/15/2025 9:21 AM EDT Body Mass Index 21.59 03/15/2025 9:21 AM EDT Plan of Treatment Upcoming Encounters Date Type Department Care Team (Late st Contact Info) Description 04/19/2025 1:00 PM EDT Office Visit [facility] [address] [place] [address] Marek, Reyna, OD [address] [place] [address] 04/30/2025 1:00 PM EDT Medication Management [facility] [address] [place] [address] King Orlando, PharmD [address] [place] [address] 05/19/2025 10:00 AM EDT Office Visit [facility] [address] [place] [phone] Yolanda Priest MD [address] [place] [address] Health Maintenance Due Date Last Done Comments CT Colonography 1960 Colonoscopy 1960 FIT 1960 FOBT 1960 Sigmoidoscopy 1960 HPV/Cotest 11/17/1989 COVID-19 Vaccine ( season) 2024 06/29/2022, 12/01/2021, 12/07/2020, Additional history exists Dental Oral Exam 05/22/2024 11/20/2023 Dental Prophylaxis 06/13/2024 12/11/2023 Dental X-Ray: Bitewings 11/20/2024 11/20/2023 Influenza Vaccine (#1) 2025 , 04/22/2023, 04/26/2022, Additional history exists Diabetes: Hemoglobin A1C 06/05/2025 025, 10/12/2024, 05/27/2024, Additional history exists Eye Exam 10/15/2025 10/15/2024, 2 , 10/15/2024, Additional history exists Lipid Panel 11/02/2025 11/02/2024, 01/27, 11/29/2023, Additional history exists Mammogram 11/24/2025 11/24/2024, 10/28, 11/14/2022, Additional history exists Colorectal Cancer Screening 03/05/2026 FIT DNA/Cologuard 03/05/2026 03/05/2023 SDOH Screening 03/05/2026 03/05/2025 Alcohol/Substance Use Screening 03/15/2026 03/15/2025 Depression Screening 03/15/2026 03/15/2025, 03/15/20 Diabetes: Foot Exam 03/15/2026 03/15/2025, 03/15/2025, 03/15/2025, Additional history exists Tobacco Screening 03/15/2026 03/15/2025 Dental X-Ray: Full Mouth 11/20/2026 11/20/2023 Cervical Cancer Screening 06/12/2027 Pap Smear 06/12/2027 06/12/2024 DTaP/Tdap/Td Vaccines (2 - Td or Tdap) 08/21/2027 08/21/2017 Pneumococcal Vaccine: 50+ Years Completed 02/18/2023, 06/24/2018 Zoster Vaccines Completed 04/22/2023, 02/18/2023 Hepatitis C Screening Completed 05/23/2023 RSV Patients and Patients Aged 60 years or older Completed 10/02/2023 HIB Vaccines Aged Out No longer eligi [...] Pressure 120/70(2024 9:21 AM EDT) No King Orlando, Aditi Hemoglobin A1c < 7 Result Component 9.3( 1:55 PM EDT) No King Orlando PharmD Procedures Procedure Name Priority Date/Time Associated Diagnosis Comments ALBUMIN, RANDOM URINE W/CREATININE Routine 03/15/2025 10:46 AM EDT BASIC METABOLIC PANEL Routine 03/15/2025 10:46 AM EDT POCT GLYCATED HEMOGLOBIN, TOTAL Routine 03/05/2025 1:55 PM EDT Type 2 diabetes mellitus with chronic kidney disease, with long-term current use of insulin, unspecified CKD stage ([facility]) BI MAMMOGRAM SCREENING TOMOSYNTHESIS BILATERAL Routine 11/24/2024 1:45 PM EDT LIPID PANEL, STANDARD Routine 11/02/2024 11:38 AM EDT PAP SMEAR Routine 06/12/2024 10:17 AM EST [...] EDT Encounter for preventive health examination LAB COLOGUARD COLON CANCER SCREEN Routine 03/05/2023 2:15 PM EDT from Last 3 Months or Most Recently Relevant to Health Maintenance Results * (ABNORMAL) Albumin, Random Urine W/Creatinine (03/15/2025 10:46 AM EDT) Creatinine, Urine 42.46 mg/dL [facility] Microalbumin Urine 33.0 mg/L [facility] Microalbum Creatinine Ratio Ur 77.7(H) <30 ug/mg cr [facility] Comment:Albumin/Creatinine R atio Reference Ranges: Normal: < 30 ug/mg creatinine Microalbuminuria: 30 - 300 ug/mg creatinineClinical Albuminuria: > 300 ug/mg creatinine 03/15/2025 10:4 6 AM EDT 03/15/2025 11:18 AM EDT us Yolanda Priest MD LAB URINE ORDERABLES Fin al Result [facility] [address] [place] [address] [phone] * (ABNORMAL) Basic Metabolic Panel (03/15/2025 10:46 AM EDT) Sodium 139 135 - 145 mmol/L [facility] Potassium 5.6(H) 3.3 - 5.1 mmol/L [facility] Chloride 107 96 - 108 mmol/L [facility] Carbon Dioxide 25 22 - 29 mmol/L [facility] Anion Gap 13 12 - 20 [facility] Urea Nitrogen (BUN) 17(H) 9 - 16 mg/dL [facility] Creatinine, Serum 0.72 0.5 - 1.4 mg/dL [facility] Estimated Glomerular Filt Rate >60 [facility] Comment:Chronic Kidney Disea se: Estimated GFR < 60 mL/min/[id number] Kidney Disease: Estimated GFR < 15 mL/min/1.73m2 Glucose 186(H) 60 - 115 mg/dL [facility] Calcium 10.1 8.4 - 10.2 mg/dL [facility] 03/15/2025 10:4 6 AM EDT 03/15/2025 11:10 AM EDT Yolanda Priest MD LAB BLOOD ORDERABLES Fin al Result [facility] [address] [place] [address] [phone] * (ABNORMAL) POCT HGB A1C (03/05/2025 1:55 PM EDT) Hemoglobin A1C 9.3(A) 4.0 - 5.7 % QC Media Lot # [id number] Lot# Expiration Date Blood 03/05/2025 1:55 PM EDT Yolanda Priest MD POINT OF CARE TEST ENTER /EDIT ORDERABLES Final Result * BI Mammogram Screening Tomosynthesis Bilateral (11/24/2024 1:45 PM EDT) Anatomical Region Laterality Modality Breast Bilateral Mammography 11/24/2024 1:45 PM EDT Narrative 11/29/2024 7:07 PM EDT [facility] [address] [place] [address] Mammography Report Signed Patient: Alice Amin MR#: [id number] : 1960 Acct:[id number] Age/Sex: 64 / F ADM Date: 11/24/24 Loc: HO.MAMMO Attending Dr: Yolanda Priest MD Ordering Physician: Yolanda Priest MD Results: 1Ne gative Date of Service: 11/24/24 Follow Up: 1 Year From Orig inal Mammogram Procedure(s): MM tomosynthesis screening BI Accession Number(s): [id number] cc: Yolanda Priest MD EXAMINATION: MM SCREENING [...] 11/29/24 1905 DD/ 1345 TD/TT: 11/24/24 1400 Stripper And Taper: Procedure Note Donotuseinterpreter, Image - 11/29/[facility] [address] [place] [address] Mammography Report Signed Patient: Alice Amin MMR#: [id number] : 1960Acct:[id number] Age/Sex: 64 / FADM Date: 11/24/24 Loc: HO.MAMMO Attending Dr: Yolanda Priest MD Ordering Physician: Yolanda Priest MDResults: 1Ne gative Date of Service: 11/24/24Follow Up: 1 Year From Orig inal Mammogram Procedure(s): MM tomosynthesis screening BI Accession Number(s): [id number] cc: Yolanda Priest MD EXAMINATION: MM SCREENING [...] DO 11/29/2024 07:05 PM EDT Dictated By: Jnanet Brown DO Signed By: <Electronically signed by Jannet Brown DO in OV> 11/29/24 1905 DD/ 1345 TD/TT: 11/24/24 1400 Stripper And Taper: Yolanda Priest MD [facility] BI PROCEDURES Edited Result - Final * (ABNORMAL) Lipid Panel, Standard (11/02/2024 11:38 AM EDT) Triglycerides 136 <150 mg/dL [facility] Comment:Desirable Triglyceri de: less than 150 mg/dLBorderline High Triglyceride 150-199 mg/dLHigh Triglyceride: 200-499 mg/dLVery High Triglyceride: greater than or equal to 5OO mg/dL Cholesterol 197 <200 mg/dL [facility] Comment:Desirable Cholestero l: less than 200 mg/dLBorderline High Cholesterol: 200-239 mg/dLHigh Cholesterol: greater than 239 mg/dL LDL Cholesterol Calculated 118(H) <100 mg/dL [facility] Comment:Desirable LDL: less than 100 mg/dLNear Optimal/Above Optimal LDL: 110- 129 mg/dLBorderline High LDL: 130-159 mg/dLHigh LDL: 160-189 mg/dLVery High LDL: greater than or equal to 190 mg/dL HDL Cholesterol 52 >40 mg/dL [facility] Comment:Desirable HDL: great er than 40 mg/dL Note: This HDL assay may give artificially low results in patients with liver disease. 11/02/2024 11:3 8 AM EDT 11/02/2024 1:04 PM EDT us Yolanda Priest MD LAB BLOOD ORDERABLES Fin al Result [facility] [address] [place] [phone] * Pap Smear (06/12/2024 10:17 AM EST) Swab 06/12/2024 10:1 7 AM EST 06/12/2024 1:50 PM EST Narrative [facility] - 07/01/2024 7:48 AM EST ----- ------- Name: Alice Amin Age/Sex: 63/F : 1960 Unit#: [id number] Attend Dr: Yolanda Priest MD Re06/12/24 Status: DEP REF Location: [facility] Disch: ----- ------- SPEC : [id number] RECD: 06/12/24 STATUS: SADIE HARVEY NUM: [id number] ANTONIETA: 06/12/24-[address] [facility] [address]: Yolanda Priest MD ENTERED: 06/12/24 SP TYPE: Pap Smr OT DR: ORDERED: Pap Smear Interpretation Satisfactory for evaluation. Negative for intraepithelial lesion or malignancy. Atrophic. Scant cellularity. HPV High Risk: Negative HPV Genotyping 16: Negative HPV Genotyping 18: Negative Clinical Information LMP: Unknown date Previous PAP test: Five years ago, Unknown findings Material Received ThinPrep-Cervical ----- ------- Signed (signature on file) KATRIN Head (ASCP) 07/01/24 0748 ----- ------- END OF REPORT Yolanda Priest MD LAB CYTOLOGY ORDERABLES Final Result [facility] [address] [place] [address] [phone] * Hepatitis Panel, General (05/23/2023 2:35 PM EDT) Hepatitis A IgM Nonreactive Nonreactive [facility] Comment:IgM antibodies to BROOKS V not detected; does not exclude earlyacute or recovered HAV infection. ~Hepatitis B Surface Antibody NONREACTIVE Nonreactive [facility] Comment:Nonreactive: < 8.00 mIU/mL Hepatitis B Core Antibody Nonreactive Nonreactive [facility] Hepatitis C Antibody Nonreactive Nonreactive [facility] Comment:Antibodies to HCV no t detected; does not exclude early acuteHCV infection. Hepatitis B Surface Ag Negative Negative [facility] Blood 05/23/2023 2:35 PM EDT 05/23/2023 4:01 PM EDT us Yolanda Priest MD LAB BLOOD ORDERABLES Fin al Result Performing Organization Address [facility]/ZIP Co de Phone Number [facility] [address] [place] [address] [phone] * Cologuard?? colon cancer screening (03/05/2023 2:15 PM EDT) Cologuard Cancer Screen Negative [facility] (CLIA #:[id number]) Stool Anal structure / Unknown 03/05/2023 2:15 PM EDT us Yolanda Priest MD LAB MOLECULAR DIAGNOSTIC S ORDERABLES Final Result [facility] (CLIA #:[id number]) [address] [place] [address], [place] [phone] from Last 3 Months or Most Recently Relevant to Health Maintenance Insurance [facility] OPTIONS (O D-SNP) Care Teams Broommaker Relationship Specialty Start Date End Date Yolanda Priest MD [address] [place] [address] PCP - General Family Medicine 01/10/17 King Orlando, Aditi [address] [place] [address] Pharmacist Internal Medicine 10/02/23
[2025-03-30 11:49] LABS: Potassium 5.5 mmol/L (3.3-5.1)
== END 2025-03-30 09:55 | disposition home or self-care (01) ==
LOC: HO.HHCL 09:54
PROVIDERS: PCP Internal Medicine; Visit Provider Internal Medicine
DX: E87.5 Hyperkalemia (principal)
CPT/HCPCS: 36415; 84132

== ENCOUNTER 2025-04-07 14:35 | Outpatient (REF) | payer OTHER, SELFPAY ==
--- OUTSIDE RECORDS SUMMARY | 2025-04-08 13:00 | XMS_ITS | Encounter Summary ---
Author Organization [email or web address] Address [address] [facility] 7t [place] [address] Care Team Providers Care Staff Engineer Name Role Phone Yolanda Priest MD Primary Care Provider + King Orlando PharmD Unavailable [phone] Reason for Visit * Reason Onset Date Comments Call Back 03/01/2023 Encounter Details Date Type Department Care Team ([facility] st Contact Info) Description 03/01/2023 Telephone [facility] MEDICINE [address] [place], [place] [phone] Yolanda Priest MD [address] [place], [place] [phone] Call Back Social History Tobacco Use Types [...] form for a physical that is needed, mortgage or loan underwriter offer to transferover but she prefers to speak with a nurse but at the end I transfer her over but she still wanted me to send message. Please contact pt at [phone] documented in this encounter Plan of Treatment Upcoming Encounters Date Type Department Care Team (Late st Contact Info) Description 04/19/2025 1:00 PM EDT Office Visit [facility] OPTOMETRY [address] [place] [address] Marek, Megan, OD [address] [place] [address] 04/30/2025 1:00 PM EDT Medication Management [facility] MEDICINE 230 [place] [address] King Orlando, Aditi [address] [place] [address] 05/19/2025 10:00 AM EDT Office Visit [facility] MED[facility]INE [address] [place] [address] Yolanda Priest MD [address] [place] [address] documented as of this encounter Visit Diagnoses Not on filedocumented in this encounter Additional Health Concerns Assessment Noted Time PHQ-9 Depression Total Score: 7 11/09/19 23 10:16 AM EDT documented as of this encounter Care Teams Staff Engineer Relationship Specialty Start Date End Date Yolanda Priest MD [address] [place] [address] PCP - General Family Medicine 01/10/17 King Orlando, DouglasD [address] [place] [address] Pharmacist Internal Medicine 10/02/23 documented as of this encounter
--- OUTSIDE RECORDS SUMMARY | 2025-04-08 13:00 | XMS_ITS | Encounter Summary ---
Author Organization [employer] Address [address] [facility] 7t [place] [address] Care Team Providers Care Media Relations Manager Name Role Phone Yolanda Priest MD Primary Care Provider + King Orlando PharmD Unavailable [phone] Encounter Details Date Type Department Care Team (Late st Contact Info) Description 11/27/2022 Orders Only [facility] [address] [place], [place] [phone] Yolanda Priest MD [address] [place], [place] [phone] Uncontrolled type 2 diabetes mellitus with hyperglycemia [...] 04/19/2025 1:00 PM EDT Office Visit [facility] OPTOMETRY [address] [place] [address] Marek Reyna, OD 230 [place] [address] 04/30/2025 1:00 PM EDT Medication Management [facility] [address] [place] [address] King Orlando, Aditi [address] [place] [address] 05/19/2025 10:00 AM EDT Office Visit [facility] [address] [place] [address] Yolanda Priest MD [address] [place] [address] documented as of this encounter Visit Diagnoses Diagnosis Uncontrolled type 2 diabetes mellitus with hyperglycemia (CMS/HCC)- Primary documented in this encounter Additional Health Concerns Assessment Noted Time PHQ-9 Depression Total Score: 7 11/09/19 23 10:16 AM EDT documented as of this encounter Care Teams Media Relations Manager Relationship Specialty Start Date End Date Yolanda Priest MD [address] [place] [address] PCP - General Family Medicine 01/10/17 King Orlando, Aditi [address] [place] [address] Pharmacist Internal Medicine 10/02/23 documented as of this encounter
--- OUTSIDE RECORDS SUMMARY | 2025-04-08 13:00 | XMS_ITS | Clinical Summary ---
Author Organization [employer] Address [address] [facility] 7t [place] [address] Care Team Providers Care Wrecking Mechanic Name Role Phone Yolanda Priest MD Primary Care Provider + King Orlando PharmD Unavailable [phone] Allergies No known active allergies Medications melatonin [...] 30 tablet 11 07/17 Active Continuous Glucose Tobacco Hanger (FreeStyle Mitch 3 [place]) deviceIndications:Type 2 diabetes mellitus with chronic kidney [...] 2024 Active ergocalciferol (Vitamin D2) 1.25 MG (05223 UT) capsuleIndications:Pur e hypercholesterolemia TAKE 1 CAPSULE [...] rolled type 2 diabetes mellitus with hyperglycemia ([facility]/HCC) Use three times daily with insulin [...] ncontrolled type 2 diabetes mellitus with hyperglycemia ([facility]/HCC) INJECT 10 UNITS SUBCUTANEOUSLY ONCE DAILY 2024 Active insulin aspart (NovoLOG FLEXPEN) 100 UNIT/ML penIndications:Type 2 diabetes mellitus with chronic kidney disease, with long-term current use of insulin, unspecified CKD stage ([facility]/HCC) Inject 2-4 units three times daily before meals 2024 Active insulin degludec (Tresiba FlexTouch) 100 UNIT/ML injectionIndications:U ncontrolled type 2 diabetes mellitus with hyperglycemia ([facility]/HCC) INJECT 20 UNITS SUBCUTANEOUSLY ONCE DAILY [...] current use of insulin, unspecified CKD stage (CMS/[facility]) Inject 6 units subcutaneously before breakfast and [...] ncontrolled type 2 diabetes mellitus with hyperglycemia ([facility]) INJECT 20 UNITS SUBCUTANEOUSLY ONCE DAILY 3 [...] an another apartment since 2022. Will have critical care unit manager/[facility] program to follow-up with her Assessment & Plan (04/20/2023 2:19 PM EDT): Son and family will move out soon and they have leasing contract. Refer to [facility] to help her with rent [...] uncontrolled., pt will fu with endo at [facility] next week. pt to bring glucometer to pharmacy vs order new glucometer continue lantus 40 units + Humalog TID ac meals + po medications. FU with me in 3 months Assessment & Plan (11/08/2022 10:55 AM EDT): Uncontrolled. Increase lantus to 40 units, no change in other medications FU with me in 4 weeks. refer to keno clerk and reminded pt to be complaint with [...] Type Department Care Team Description 04/07/2025 Telephone [facility] [address] [place] [address] [phone] King Orlando, PharmD 03/16/2025 Patient Outreach [facility] [address] [place] [address] [phone] James Durbin Care Coordination (CHW outreach for SDOH housing search-LVM ) 03/15/2025 9:45 AM EDT Office Visit [facility] [address] [place] [address] [phone] Yolanda Priest MD Uncontrolled type 2 diabetes mellitus with hyperglycemia (CMS/HCC) (Primary Dx); Housing instability due to imminent risk of homelessness; Recurrent major depression in partial remission (CMS/HCC); Weakness 03/15/2025 Results Follow-Up [facility] [address] [place] [address] [phone] Yolanda Priest MD Basic Metabolic Panel, Albumin, Random Urine W/Creatinine 03/15/2025 Orders Only [facility] [place] [address] Yolanda Priest MD 03/15/2025 Travel 03/12/2025 Telephone [facility] [address] [place] [address] [phone] Yolanda Priest MD Chart Prep 03/11/2025 Telephone [facility] [address] [place] [address] [phone] King Orlando, PharmJanelle 03/05/2025 Refill [facility] [address] [place] [address] [phone] Yolanda Priest MD Type 2 diabetes mellitus with chronic kidney disease, with long-term current use of insulin, unspecified CKD stage (CMS/HCC) 03/05/2025 Travel 03/05/2025 Patient Outreach [facility] [address] [place] [address] [phone] Yolanda Priest MD Care Coordination (CHW outreach for SDOH housing search-referral completed ) 03/05/2025 Patient Outreach [facility] [address] [place] [address] [phone] Yolanda Priest MD Pre-visit Planning (SDOH screening positive and tobacco screening negative) 02/28/2025 Refill [facility] [address] [place] [address] [phone] King Orlando, Aditi Type 2 diabetes mellitus with chronic kidney disease, with long-term current use of insulin, unspecified CKD stage (CMS/HCC) 02/25/2025 Telephone [facility] [address] [place] [address] [phone] Yolanda Priest MD Appointment Request 02/17/2025 Refill [facility] [address] [place] [address] [phone] King Orlando, Aditi Uncontrolled type 2 diabetes mellitus with hyperglycemia (CMS/HCC) 02/06/2025 Refill [facility] [address] [place] [address] King Orlando, PharmD Uncontrolled type 2 diabetes mellitus with hyperglycemia ([facility]) 01/28/2025 Refill [facility] [address] [place] [address] King Orlando, Aditi Uncontrolled type 2 diabetes mellitus with hyperglycemia ([facility]); Essential hypertension 01/22/2025 Refill [facility] [address] [place], [place] [phone] Yolanda Priest MD Pure hypercholesterolemia 01/12/2025 Travel from Last 3 Months Immunizations Immunization Administration [...] with others, in a hotel, in a detention, living outside on the street, on a [...] 1:00 PM EDT Office Visit [facility] OPTOMETRY [address] [place] [address] Reyna Jara, OD [address] [place] [address] 04/30/2025 1:00 PM EDT Medication Management [facility] [address] [place] [address] King Orlando, PharmD [address] [place] [address] 05/19/2025 10:00 AM EDT Office Visit [facility] [address] [place] [address] Yolanda Priest MD [address] [place] [address] Health Maintenance Due Date Last Done Comments [...] current use of insulin, unspecified CKD stage ([facility]) BI MAMMOGRAM SCREENING TOMOSYNTHESIS BILATERAL [...] EDT) Potassium 5.5(H) 3.3 - 5.1 mmol/L [facility] Blood Venous blood specimen / Unknown 03/30/2025 10:25 AM EDT 03/30/2025 11:01 AM EDT us Yolanda Priest MD LAB BLOOD ORDERABLES Fin al Result Performing Organization Address [facility] Co de Phone Number [facility] [address] [place] [address] [phone] * (ABNORMAL) Albumin, Random Urine W/Creatinine (03/15/2025 10:46 AM EDT) Creatinine, Urine 42.46 mg/dL [facility] Microalbumin Urine 33.0 mg/L [facility] Microalbum Creatinine Ratio Ur 77.7(H) <30 ug/mg cr [facility] Comment:Albumin/Creatinine R atio Reference Ranges: Normal: < 30 ug/mg creatinine Microalbuminuria: 30 - 300 ug/mg creatinineClinical Albuminuria: > 300 ug/mg creatinine 03/15/2025 10:4 6 AM EDT 03/15/2025 11:18 AM EDT Yolanda Priest MD LAB URINE ORDERABLES Fin al Result Performing Organization Address [facility] Co de Phone Number [facility] [address] [place] [address] [phone] * (ABNORMAL) Basic Metabolic Panel (03/15/2025 10:46 AM EDT) Sodium 139 135 - 145 mmol/L [facility] Potassium 5.6(H) 3.3 - 5.1 mmol/L [facility] Chloride 107 96 - 108 mmol/L [facility] Carbon Dioxide 25 22 - 29 mmol/L [facility] Anion Gap 13 12 - 20 [facility] Urea Nitrogen (BUN) 17(H) 9 - 16 mg/dL [facility] Creatinine, Serum 0.72 0.5 - 1.4 mg/dL [facility] Estimated Glomerular Filt Rate >60 [facility] Comment:Chronic Kidney Disea se: Estimated GFR < 60 mL/min/1.95q1Aebmxu Kidney Disease: Estimated GFR < 15 mL/min/1.73m2 Glucose 186(H) 60 - 115 mg/dL [facility] Calcium 10.1 8.4 - 10.2 mg/dL [facility] 03/15/2025 10:4 6 AM EDT 03/15/2025 11:10 AM EDT Yolanda Priest MD LAB BLOOD ORDERABLES Fin al Result [facility] [address] [place] [address] [place] [phone] * (ABNORMAL) POCT HGB A1C (03/05/2025 [...] PM EDT Narrative 11/29/2024 7:07 PM EDT [facility] [address] [place] [address] Mammography Report Signed Patient: Alice Amin MR#: [id number] : 1960 Acct:[id number] Age/Sex: 64 / F ADM Date: 11/24/24 Loc: MAMMO Attending Dr: Yolanda Priest MD Ordering Physician: Yolanda Priest MD Results: 1Ne gatlis Date of Service: 11/24/24 Follow Up: 1 Year From Orig inal Mammogram Procedure(s): MM tomosynthesis screening BI Accession Number(s): [id number] cc: Yolanda Priest MD EXAMINATION: MM SCREENING [...] 11/29/24 1905 DD/ 1345 TD/TT: 11/24/24 1400 Editor Sound: Procedure Note Donotuseinterpreter, Image - 11/29/2024 [facility] [address] [place] [address] Dr. Ayala, MATTEO [address] Mammography Report Signed Patient: Alice Amin MMR#: [id number] : 1960Acct:[id number] Age/Sex: 64 / FADM Date: 11/24/24 Loc: HO.MAMMO Attending Dr: Yolanda Priest MD Ordering Physician: Yolanda Priest MDResults: 1Npaola whitaker Date of Service: 11/24/24Follow Up: 1 Year From [facility] ina Mammogram Procedure(s): MM tomosynthesis screening BI Accession Number(s): [id number] cc: Yolanda Priest MD EXAMINATION: MM SCREENING [...] 11/29/24 1905 DD/ 1345 TD/TT: 11/24/24 1400 Editor Sound: us Yolanda Priest MD IMG BI PROCEDURES Edited Result - Final * (ABNORMAL) Lipid Panel, Standard (11/02/2024 11:38 AM EDT) Triglycerides 136 <150 mg/dL [facility] Comment:Desirable Triglyceri de: less than 150 mg/dLBorderline High Triglyceride 150-199 mg/dLHigh Triglyceride: 200-499 mg/dLVery High Triglyceride: greater than or equal to 5OO mg/dL Cholesterol 197 <200 mg/dL [facility] Comment:Desirable Cholestero l: less than 200 mg/dLBorderline High Cholesterol: 200-239 mg/dLHigh Cholesterol: greater than 239 mg/dL LDL Cholesterol Calculated 118(H) <100 mg/dL [facility] Comment:Desirable LDL: less than 100 mg/dLNear Optimal/Above Optimal LDL: 110- 129 mg/dLBorderline High LDL: 130-159 mg/dLHigh LDL: 160-189 mg/dLVery High LDL: greater than or equal to 190 mg/dL HDL Cholesterol 52 >40 mg/dL [facility] Comment:Desirable HDL: great er than 40 mg/dL Note: This HDL assay may give artificially low results in patients with liver disease. 11/02/2024 11:3 8 AM EDT 11/02/2024 1:04 PM EDT us Yolanda Priest MD LAB BLOOD ORDERABLES Fin al Result [facility] [address] [place] [address] [phone] * Pap Smear (06/12/2024 10:17 AM EST) Swab 06/12/2024 10:1 7 AM EST 06/12/2024 1:50 PM EST Narrative [facility] - 07/01/2024 7:48 AM EST ----- ------- Name: Alice Amin Age/Sex: 63/F : 1960 Unit#: [id number] Attend Dr: Yolanda Priest MD Re06/12/24 Status: DEP REF Location: HO.HHCLNP Disch: ----- ------- SPEC : [id number] RECD: 06/12/24 STATUS: SADIE HARVEY NUM: [id number] ANTONIETA: 06/12/[address] [facility] [address]: Yolanda Priest MD ENTERED: 06/12/24 [...] Priest MD LAB CYTOLOGY ORDERABLES Final Result [facility] [address] [place] [address] [phone] * Hepatitis Panel, General (05/23/2023 2:35 PM EDT) Pathologist [facility] Hepatitis A IgM Nonreactive Nonreactive [facility] Comment:IgM antibodies to BROOKS V not detected; does not exclude earlyacute or recovered HAV infection. ~Hepatitis B Surface Antibody NONREACTIVE Nonreactive [facility] Comment:Nonreactive: < 8.00 mIU/mL Hepatitis B Core Antibody Nonreactive Nonreactive [facility] Hepatitis C Antibody Nonreactive Nonreactive [facility] Comment:Antibodies to HCV no t detected; does not exclude early acuteHCV infection. Hepatitis B Surface Ag Negative Negative [facility] Blood 05/23/2023 2:35 PM EDT 05/23/2023 4:01 PM EDT Yolanda Priest MD LAB BLOOD ORDERABLES Fin al Result Performing Organization Address City/[facility]/ZIP Co de Phone Number [facility] [address] [place] [phone] [phone] * Cologuard?? colon cancer screening (03/05/2023 2:15 PM EDT) Pathologist [facility] Cologuard Cancer Screen Negative [facility] (CLIA #:[id number]) Stool Anal structure / Unknown 03/05/2023 2:15 PM EDT Yolanda Priest MD LAB MOLECULAR DIAGNOSTIC S ORDERABLES Final Result [facility] (CLIA #:[id number]) [place] [address], [place] [phone] from Last 3 Months or Most Recently Relevant to Health Maintenance [place] [address] * Guarantor: Alice Amin Account Type Relation to Patient Date of Phone Billing Address Personal/Family Self [address] [place] Care Teams Wrecking Mechanic Relationship Specialty Start Date End Date Yolanda Priest MD [address] [place] [address] PCP - General Family Medicine 01/10/17 King Orlando, PharmD [address] [place] [address] [place] [address] Pharmacist Internal Medicine 10/02/23
--- OUTSIDE RECORDS SUMMARY | 2025-04-08 13:00 | XMS_ITS | Encounter Summary ---
Author Organization [employer] Address [address] [facility] 7t [place] [address] Care Team Providers Care Quoter Name Role Phone Yolanda Priest MD Primary Care Provider + King Orlando PharmD Unavailable [phone] Encounter Details Date Type Department Care Team (Late st Contact Info) Description 04/07/2025 Telephone [facility] [address] [place], [place] [phone] King Orlando, PharmD [address] [place], [place] [phone] Social History Tobacco Use Types Packs/Day Years [...] Description 04/19/2025 1:00 PM EDT Office Visit [facility] OPTOMETRY [address] [place] [address] Reyna Jara, OD [address] [place] [address] 04/30/2025 1:00 PM EDT Medication Management [facility] [address] [place] [address] King Orlando PharmD [address] [place] [address] 05/19/2025 10:00 AM EDT Office Visit [facility] [address] [place] [address] Yolanda Priest MD [address] [place] [address] documented as of this encounter Goals Goal [...] documented as of this encounter Care Teams Quoter Relationship Specialty Start Date End Date Yolanda Priest MD [address] [place] [phone] PCP - General Family Medicine 01/10/17 King Orlando PharmD [address] [place] [address] [phone] Pharmacist Internal Medicine 10/02/23 documented as of this encounter
--- OUTSIDE RECORDS SUMMARY | 2025-04-08 13:00 | XMS_ITS | Encounter Summary ---
Author Organization [employer] Address [address] [place] [address] 7t [place] [address] Care Team Providers Care Customer Service Officer Name Role Phone Yolanda Priest MD Primary Care Provider + King Orlando PharmD Unavailable [phone] Encounter Details Date Type Department Care Team (Late Contact Info) Description 02/22/2023 Orders Only [facility] [address] [place] [address] [phone] Alice Jennings LPN Social History Tobacco Use [...] Description 04/19/2025 1:00 PM EDT Office Visit [facility] OPTOMETRY [address] [place], [place] [phone] Reyna Jara, OD [address] [place], [place] [phone] 04/30/2025 1:00 PM EDT Medication Management [facility] [address] [place] [phone] King Orlando, PharmD [address] [place] [phone] 05/19/2025 10:00 AM EDT Office Visit [facility] [address] [place] [address] Yolanda Priest MD [address] [place] [phone] documented as of this encounter Visit Diagnoses Not on filedocumented in this encounter Additional Health Concerns Assessment Noted Time PHQ-9 Depression Total Score: 7 11/09/19 23 10:16 AM EDT documented as of this encounter Care Teams Customer Service Officer Relationship Specialty Start Date End Date Yolanda Priest MD [address] [place] [phone] PCP - General Family Medicine 01/10/17 King Orlando, PharmD [address] [place] [address] [phone] Pharmacist Internal Medicine 10/02/23 documented as of this encounter
--- OUTSIDE RECORDS SUMMARY | 2025-04-08 13:00 | XMS_ITS | Encounter Summary ---
Author Organization [employer] Address [address] [facility] 7t [place] [address] Care Team Providers Care Editor Book Name Role Phone Yolanda Priest MD Primary Care Provider + King Orlando PharmD Unavailable [phone] Reason for Visit * Reason Onset Date Comments Appointment Request 02/25/2025 Encounter Details Date Type Department Care Team ([facility] st Contact Info) Description 02/25/2025 Telephone [facility] [address] [place], [place] [phone] Yolanda Priest MD [address] [place], [place] [phone] Appointment Request Social History Tobacco Use Types [...] CDTM visit today. Please contact pt at [phone]. (Hungarian Speaker) documented in this encounter Plan of Treatment Upcoming Encounters Date Type Department Care Team (Late st Contact Info) Description 04/19/2025 1:00 PM EDT Office Visit [facility] OPTOMETRY [address] [place] [address] Reyna Jara, OD 230 [place] [address] 04/30/2025 1:00 PM EDT Medication Management [facility] [address] [place] [address] King Orlando, PharmD [address] [place] [address] 05/19/2025 10:00 AM EDT Office Visit [facility] [address] [place] [address] Yolanda Priest MD [address] [place] [phone] documented as of this encounter Goals Goal [...] documented as of this encounter Care Teams Editor Book Relationship Specialty Start Date End Date Yolanda Priets MD [address] [place] [phone] PCP - General Family Medicine 01/10/17 King Orlando, DouglasD [address] [place] [phone] Pharmacist Internal Medicine 10/02/23 documented as of this encounter
--- OUTSIDE RECORDS SUMMARY | 2025-04-08 13:00 | XMS_ITS | Encounter Summary ---
Author Organization [employer] Address [address] [facility] 7t [place] [address] Care Team Providers Care Education And Training Manager Name Role Phone Yolanda Priest MD Primary Care Provider + King Orlando PharmD Unavailable [phone] Encounter Details Date Type Department Care Team (Late st Contact Info) Description 03/05/2025 Refill [facility] [address] [place], [place] [phone] Yolanda Priest MD [address] [place], [place] [phone] Type 2 diabetes mellitus with chronic kidney [...] others, in a hotel, in a senior living, living outside on the street, on a [...] 1:00 PM EDT Office Visit [facility] OPTOMETRY [address] [place] [address] Marek, Reyna, OD [address] [place] [address] 04/30/2025 1:00 PM EDT Medication Management [facility] [address] [place] [address] King Orlando, PharmD [address] [place] [address] 05/19/2025 10:00 AM EDT Office Visit [facility] [address] [place] [phone] Yolanda Priest MD [address] [place] [address] documented as of this encounter Goals Goal [...] documented as of this encounter Care Teams Education And Training Manager Relationship Specialty Start Date End Date Yolanda Priest MD [address] [place] [address] PCP - General Family Medicine 01/10/17 King Orlando PharmD [address] [place] [address] Pharmacist Internal Medicine 10/02/23 documented as of this encounter
--- OUTSIDE RECORDS SUMMARY | 2025-04-08 13:00 | XMS_ITS | Encounter Summary ---
Author Organization [employer] Address [address] [facility] [address] 7t [place] [address] Care Team Providers Care Booth Supervisor Name Role Phone Yolanda Priest MD Primary Care Provider + King Orlando PharmD Unavailable [phone] Encounter Details Date Type Department Care Team (Late st Contact Info) Description 10/28/2024 Telephone [facility] OPTOMETRY [address] [place], [place] [phone] Marek, Reyna, OD [address] [place], [place] [phone] Social History Tobacco Use Types Packs/Day Years [...] with others, in a hotel, in a intermediate, living outside on the street, on a [...] MARY HAGEN Address: [facility] [address] [place] [address] documented in this encounter Plan of Treatment Upcoming Encounters Date Type Department Care Team ([facility] st Contact Info) Description 04/19/2025 1:00 PM EDT Office Visit [facility] OPTOMETRY [address] [place], [place] [phone] Reyna Jara, OD [address] [place] [address] 04/30/2025 1:00 PM EDT Medication Management [address] [address] King Orlando PharmD [address] [place] [address] 05/19/2025 10:00 AM EDT Office Visit [facility] [address] [place] [address] [phone] Yolanda Priest MD [address] [place] [phone] documented as of this encounter Goals Goal [...] documented as of this encounter Care Teams Booth Supervisor Relationship Specialty Start Date End Date Yolanda Priest MD [address] [place] [address] [phone] PCP - General Family Medicine 01/10/17 King Orlando PharmD [address] [place] [address] [phone] Pharmacist Internal Medicine 10/02/23 documented as of this encounter
--- OUTSIDE RECORDS SUMMARY | 2025-04-08 13:00 | XMS_ITS | Encounter Summary ---
Author Organization [employer] Address [address] [facility] 7t [place] [address] Care Team Providers Care Batter Scaler Name Role Phone Yolanda Priest MD Primary Care Provider + King Orlando PharmD Unavailable [phone] Reason for Visit * Reason Comments Med Refill Encounter Details Date Type Department Care Team (Late st Contact Info) Description 05/07/2023 Refill [facility] [address] [place], [place] [phone] Virgil Santoyo, STEVEN [address] [place], [place] [phone] Social History Tobacco Use Types Packs/Day Years [...] Description 04/19/2025 1:00 PM EDT Office Visit [facility] OPTOMETRY [address] [place] [address] Reyna Jara, OD [address] [place] [address] 04/30/2025 1:00 PM EDT Medication Management [facility] [address] [place] [address] King Orlando, PharmD [address] [place] [address] 05/19/2025 10:00 AM EDT Office Visit [facility] [address] [place] [address] Yolanda Priest MD [address] [place] [address] documented as of this encounter Visit Diagnoses Not on filedocumented in this encounter Additional Health Concerns Assessment Noted Time PHQ-9 Depression Total Score: 7 11/09/19 23 10:16 AM EDT documented as of this encounter Care Teams Batter Scaler Relationship Specialty Start Date End Date Yolanda Priest MD [address] [place] [address] PCP - General Family Medicine 01/10/17 King Orlando PharmD [address] [place] [address] Pharmacist Internal Medicine 10/02/23 documented as of this encounter
--- OUTSIDE RECORDS SUMMARY | 2025-04-08 13:00 | XMS_ITS | Encounter Summary ---
Author Organization [employer] Address [address] [facility] 7t [place] [address] Care Team Providers Care Firer Glost Kiln Name Role Phone Yolanda Priest MD Primary Care Provider + King Orlando PharmD Unavailable [phone] Reason for Visit * Reason Onset Date Comments Prior Authorization 09/01/2024 Encounter Details Date Type Department Care Team (Late st Contact Info) Description 09/01/2024 Telephone [facility] MEDICINE [address] [place], [place] [phone] Yolanda Priest MD [address] [place], [place] [phone] Prior Authorization Social History Tobacco Use Types [...] up Mitch 3 reader from [facility] pharmacy 08/14/2024. * Telephone Encounter - Dez Porter - 09/01/2024 9:12 AM EST PA request for Continuous Glucose Sensor (FreeStyle Mitch 3 Plus Sensor) [facility]. documented in this encounter Plan of Treatment Upcoming Encounters Date Type Department Care Team (Late st Contact Info) Description 04/19/2025 1:00 PM EDT Office Visit [facility] OPTOMETRY [address] [place] [address] Reyna Jara, OD 230 [place] [address] 04/30/2025 1:00 PM EDT Medication Management [facility] MEDICINE [address] [place] [address] King Orlando PharmD [address] [place] [address] 05/19/2025 10:00 AM EDT Office Visit [facility] [address] [place] [address] Yolanda Priest MD [address] [place] [address] documented as of this encounter Goals Goal [...] documented as of this encounter Care Teams Firer Glost Kiln Relationship Specialty Start Date End Date Yolanda Priest MD [address] [place] [address] PCP - General Family Medicine 01/10/17 King Orlando PharmD [address] [place] [address] Pharmacist Internal Medicine 10/02/23 documented as of this encounter
--- OUTSIDE RECORDS SUMMARY | 2025-04-08 13:00 | XMS_ITS | Encounter Summary ---
Author Organization [employer] Address [address] [facility] 7t [place] [address] Care Team Providers Care Supervisor Small Appliance Assembly Name Role Phone Yolanda Priest MD Primary Care Provider + King Orlando PharmD Unavailable [phone] Reason for Visit * Reason Onset Date Comments Appointment Request 10/26/2024 Encounter Details Date Type Department Care Team ([facility] st Contact Info) Description 10/26/2024 Telephone [facility] MEDICINE [address] [place], [place] [phone] Yolanda Priest MD [address] [place], [place] [phone] Appointment Request Social History Tobacco Use Types [...] Description 04/19/2025 1:00 PM EDT Office Visit [facility] OPTOMETRY [address] [place], [place] [phone] Marek, Reyna, OD 230 [place] [address] 04/30/2025 1:00 PM EDT Medication Management [facility] MEDICINE [address] [place], [place] [phone] King Orlando, PharmD 230 [place] [address] 05/19/2025 10:00 AM EDT Office Visit [facility] MEDICINE [address] [place] [address] Yolanda Priest MD [address] [place] [address] documented as of this encounter Goals Goal Patient Goal Type Associated Problems Recent Progress Patient-Stated? Author Blood Pressure < 140/90 Blood Pressure 120/70(2024 9:21 AM EDT) No King rOlando PharmD Hemoglobin A1c < 7 Result Component 9.3( 1:55 PM EDT) No King Orlando PharmD documented as of this encounter Visit Diagnoses Not on filedocumented in this encounter Additional Health Concerns Assessment Noted Time PHQ-9 Depression Total Score: 13 02/23/ 024 1:39 PM EDT documented as of this encounter Care Teams Supervisor Small Appliance Assembly Relationship Specialty Start Date End Date Yolanda Priest MD [address] [place] [address] PCP - General Family Medicine 01/10/17 King Orlando, DouglasD [address] [place] [address] Pharmacist Internal Medicine 10/02/23 documented as of this encounter
--- OUTSIDE RECORDS SUMMARY | 2025-04-08 13:00 | XMS_ITS | Encounter Summary ---
Author Organization [employer] Address [address] [facility] 7t [place] [address] Care Team Providers Care Technology Advisor Name Role Phone Yolanda Priest MD Primary Care Provider + King Orlando PharmD Unavailable [phone] Reason for Visit * Reason Onset Date Comments Med Refill 09/01/2024 Encounter Details Date Type Department Care Team (Late st Contact Info) Description 09/01/2024 Telephone [facility] MEDICINE 230 [place], [place] [phone] Yolanda Priest MD 230 [place], [place] [phone] Med Refill Social History Tobacco Use Types [...] AM EST Medication sent to [facility] 07/17/24 #30 with 11 refills. * Telephone Encounter - Dez Porter - 09/01/2024 8:55 AM EST TC from pt requesting medication refill. Medications needing refill : Continuous Glucose Sensor (FreeStyle Mitch 3 Plus Sensor) [facility] glipiZIDE XL (Glucotrol XL) 10 MG 24 hr tablet To be sent to: [facility] [place], [place] - [address] documented in this encounter Plan of Treatment Upcoming Encounters Date Type Department Care Team (Late st Contact Info) Description 04/19/2025 1:00 PM EDT Office Visit [facility] OPTOMETRY [address] [place] [address] Marek Eryna, OD 230 [place] [address] 04/30/2025 1:00 PM EDT Medication Management [facility] [address] [place] [address] King Orlando PharmD [address] [place] [address] 05/19/2025 10:00 AM EDT Office Visit [facility] [address] [place] [address] Yolanda Priest MD [address] [place] [address] documented as of this encounter Goals Goal [...] documented as of this encounter Care Teams Technology Advisor Relationship Specialty Start Date End Date Yolanda Priest MD [address] [place] [address] PCP - General Family Medicine 01/10/17 King Orlando PharmD [address] [place] [address] Pharmacist Internal Medicine 10/02/23 documented as of this encounter
--- OUTSIDE RECORDS SUMMARY | 2025-04-08 13:00 | XMS_ITS | Encounter Summary ---
Author Organization [employer] Address [address] [facility] 7t [place] [address] Care Team Providers Care Moid [employer] Teacher Name Role Phone Yolanda Priest MD Primary Care Provider + King Orlando PharmD Unavailable [phone] Reason for Visit * Reason Onset Date Comments Appointment Request 07/03/2024 Encounter Details Date Type Department Care Team ([facility] st Contact Info) Description 07/03/2024 Telephone [facility] MEDICINE 230 [place], [place] [phone] Yolanda Priest MD 230 [place], [place] [phone] Appointment Request Social History Tobacco Use Types [...] King from 06/24. Please contact pt at [phone]. (Macedonian Speaker) documented in this encounter Plan of Treatment Upcoming Encounters Date Type Department Care Team (Late st Contact Info) Description 04/19/2025 1:00 PM EDT Office Visit [facility] OPTOMETRY [address] [place], [place] [phone] Reyna Jara, OD 230 [place] [address] 04/30/2025 1:00 PM EDT Medication Management [facility] MEDICINE 230 [place], [place] [phone] King Orlando, PharmD 230 [place] [address] 05/19/2025 10:00 AM EDT Office Visit [facility] MEDICINE [address] [place] [address] Yolanda Priest MD 230 [place] [address] documented as of this encounter Goals Goal [...] documented as of this encounter Care Teams [employer] Teacher Relationship Specialty Start Date End Date Yolanda Priest MD [address] [place] [address] PCP - General Family Medicine 01/10/17 King Orlando, DouglasD [address] [place] [address] Pharmacist Internal Medicine 10/02/23 documented as of this encounter
--- OUTSIDE RECORDS SUMMARY | 2025-04-08 13:00 | XMS_ITS | Encounter Summary ---
Author Organization [employer] Address [address] [facility] 7t [place] [address] Care Team Providers Care Furniture Manager Name Role Phone Yolanda Priest MD Primary Care Provider + King Orlando PharmD Unavailable [phone] Reason for Visit * Reason Comments Med Refill Encounter Details Date Type Department Care Team (Late st Contact Info) Description 02/06/2025 Refill [facility]ICINE 230 [place], [place] [phone] King Orlando, PharmD 230 [place], [place] [phone] Uncontrolled type 2 diabetes mellitus with hyperglycemia ([facility]) Social History Tobacco Use Types [...] with others, in a hotel, in a halfway, living outside on the street, on a [...] Description 04/19/2025 1:00 PM EDT Office Visit [facility] OPTOMETRY 267 [place] [address] Marek, Reyna, OD 230 [place] [address] 04/30/2025 1:00 PM EDT Medication Management [facility] [address] [place] [address] King Orlando, PharmD 230 [place] [address] 05/19/2025 10:00 AM EDT Office Visit [facility] [address] [place] [address] Yolanda Priest MD 230 [place] [address] documented as of this encounter Goals Goal Patient Goal Type Associated Problems Recent Progress Patient-Stated? Author Blood Pressure < 140/90 Blood Pressure 120/70(2024 9:21 AM EDT) No King Orlando PharmD Hemoglobin A1c < 7 Result Component 9.3( 1:55 PM EDT) No King Orlando PharmD documented as of this encounter Visit Diagnoses Diagnosis Uncontrolled type 2 diabetes mellitus with hyperglycemia ([facility]) documented in this encounter Additional Health Concerns Assessment Noted Time PHQ-9 Depression Total Score: 13 024 1:39 PM EDT documented as of this encounter Care Teams Furniture Manager Relationship Specialty Start Date End Date Yolanda Priest MD 230 [place] [address] PCP - General Family Medicine 01/10/17 King Orlando PharmD [address] [place] [address] Pharmacist Internal Medicine 10/02/23 documented as of this encounter
== END 2025-04-07 14:36 | disposition home or self-care (01) ==
LOC: HO.LNP 14:35
PROVIDERS: PCP Internal Medicine; Visit Provider Nurse Practitioner Family
DX: K21.9 Gastro-esophageal reflux disease without esophagitis (principal); R13.14 Dysphagia, pharyngoesophageal phase; R10.13 Epigastric pain; R14.0 Abdominal distension (gaseous); Z86.19 Personal history of other infectious and parasitic diseases; Z79.899 Other long term (current) drug therapy
CPT/HCPCS: 83013; 99212

== ENCOUNTER 2025-04-07 14:35 | Outpatient (AMB) | payer OTHER, SELFPAY ==
--- NOTE | 2025-04-07 14:38 | MHC.OFFVIS ---
Vital Signs 04/07/25 14:39 Height 5 ft 4 in Weight 120 lb BMI 20.6 BP 107/55 L Blood Pressure Location Lt brachial Position Sitting Pulse 82 Pulse Oximetry (%) 100 Oxygen Delivery Method Room Air Intake Visit Reasons: Follow up 5 weeks Intake Note: Patient follow up for constipation Patient cc: difficulty swallowing on and off, denies any other GI issues for today visit. Oil And Gas Superintendent Required: Yes Oil And Gas Superintendent Name: [facility] [place] Accompanied by: Self / Same As Patient Allergies No Known Allergies (No Known Allergies*) Allergy (Verified 04/07/25 14:38) HPI HPI Follow up 5 weeks: Details: LAST VISIT Gastroesophageal reflux disease Dysphagia Postprandial epigastric pain Postprandial abdominal bloating History of Helicobacter pylori infection Constipation Plan Patient reports that she is taking all of her morning medications together which means that pantoprazole she is also taking it after she eats. That might not be effective for her. Patient will stop pantoprazole and will ask pharmacy to get her a script for Nexium separately so she can take it before meals. We will retest her for H pylori next visit she will be returning in 5 weeks. She will stop Nexium 2 weeks before coming to the office and making sure that she is not going to take famotidine for at least 24 hours before testing. Continue avoiding dietary triggers and late night snacking. Staying upright for minimum 3 hours after meals discussed with patient. Patient will continue taking senna as needed. Increase fluid intake and activity to promote better bowel motility. Patient is agreeable to current plan of care and verbalizes understanding of instructions. She was given the opportunity to ask questions and all questions answered. ? Thank you for allowing me to participate in her care Orders H Pylori Breath Test Today K21.9 New esomeprazole magnesium (Nexium) 40 mg PO DAILY 30 caps 2RF K21.9 Discontinued pantoprazole take one tablet half an hour before breakfast Discontinued Reason: Doctor's Order 40 mg PO DAILY 90 tabs 2RF K21.9 TODAY'S VISIT Patient is here today for follow-up and for H pylori breath test. Patient stopped taking her Nexium 2 weeks ago as well as her famotidine. In those 2 weeks patient reports that she had no epigastric pain or acid reflux. Occasional dysphagia without odynophagia or dyspepsia. Patient otherwise reports that she is feeling well. She is moving her bowels without any issues. Denies melena, hematochezia, unintentional weight loss or ribbon like stools. Patient is taking Trulicity. Patient denies any other GI concerning symptoms. PENDING SALE TO [facility] Medical History (Updated 04/07/25 @ 14:59 by Emmy Clark [facility]) History of Helicobacter pylori infection Encounter for colorectal cancer screening using Cologuard test Depression Peripheral neuropathy Asthma Back pain Arthritis Hypercholesterolemia Diabetes mellitus Surgical History Hx of cholecystectomy (~2021) H/O tubal ligation Family History Father Lung cancer Prostate cancer Emphysema lung Social History Household Members: Family and Children Housing: Apartment Do you presently have visiting nurse or other home services: No Alcohol intake: never Patient Tobacco Use Status: Never used Tobacco e-Cigarette/Vaping Use: Never Used Second Hand Smoke Exposure: Yes service: No Current occupational status: retired Current occupation: rt handed Review of Systems Const Denies weight gain and Denies weight loss ENT Reports no additional complaints, Reports dysphagia (Occasional) and Denies odynophagia Card Reports no additional complaints Resp Reports no additional complaints GI Denies abdominal pain, Denies belching, Denies melena, Denies bloating, Denies change in bowel habits, Reports constipation, Reports dysphagia (Occasional), Denies excessive flatus, Denies dyspepsia, Reports heartburn, Denies diarrhea, Denies loose stools, Denies nausea, Denies odynophagia and Denies vomiting Reports no additional complaints Musc Reports no additional complaints Neuro Reports no additional complaints Psych Reports no additional complaints Endo Reports no additional complaints Physical Exam Vital Signs: Last Vital Signs Pulse 82 04/07/25 14:39 BP 107/55 L 04/07/25 14:39 Pulse Ox 100 04/07/25 14:39 Oxygen Delivery Method Room Air 04/07/25 14:39 BMI result Body Mass Index 20.6 Const General: healthy appearing, no acute distress and well developed Nutritional Appearance: well nourished Orientation/consciousness: patient oriented x3 Resp Effort & Inspection: normal respiratory effort, able to speak in complete sentences, no tracheal deviation and symmetric chest movement Auscultation: clear to auscultation bilaterally Cardio Rate: regular rate GI Inspection: Yes normal to inspection and No distended Palpation (GI): Soft to palpation, not firm, nontender and No hepatosplenomegaly present Auscultation: normal bowel sounds General: Yes no CVA tenderness Back/Spine/Pelvis Back: no CVA tenderness Skin General skin exam: elasticity normal, turgor normal and dry skin Neuro General: patient oriented x3 Psych Appearance: grossly normal Mental Status: mental status grossly normal Assessment & Plan Assessment & Plan (1) History of Helicobacter pylori infection: Code(s): Z86.19 - Personal history of other infectious and parasitic diseases Category: Medical (2) Gastroesophageal reflux disease: Code(s): K21.9 - Gastro-esophageal reflux disease without esophagitis Qualifiers: Esophagitis presence: esophagitis presence not specified Qualified Code(s): K21.9 - Gastro-esophageal reflux disease without esophagitis (3) Dysphagia: Code(s): R13.10 - Dysphagia, unspecified Qualifiers: Dysphagia type: pharyngoesophageal phase Qualified Code(s): R13.14 - Dysphagia, pharyngoesophageal phase (4) Postprandial epigastric pain: Code(s): R10.13 - Epigastric pain (5) Postprandial abdominal bloating: Code(s): R14.0 - Abdominal distension (gaseous) Plan Will retest for H pylori for indication of bacteria. Continue famotidine and Nexium. Avoid dietary triggers and late night snacking. Patient reports she is feeling much better. Discussed however with patient avoiding dietary triggers and late night snacking. Staying upright for minimum 3 hours after meals discussed with patient. Patient will follow-up in our office in 3 months, sooner on as needed basis. She is agreeable to this plan and verbalizes understanding of instructions. She was given the opportunity to ask questions and all questions answered. Thank you for allowing me to participate in her care Orders: Orders H Pylori Breath Test 04/07/25 K21.9 - Gastro-esophageal reflux disease without esophagitis Medications: Refilled famotidine 20 mg PO BEDTIME 90 tabs 3RF 90 days K21.9 - Gastro-esophageal reflux disease without esophagitis esomeprazole magnesium (Nexium) 40 mg PO DAILY 90 caps 2RF K21.9 - Gastro-esophageal reflux disease without esophagitis Coding Level of Care Code Est Pt Level 4 (23095) Complex EM visit Add On G2211 Diagnoses History of Helicobacter pylori infection Z86.19 Gastroesophageal reflux disease, unspecified whether esophagitis present K21.9 Esophagitis presence: esophagitis presence not specified Pharyngoesophageal dysphagia R13.14 Dysphagia type: pharyngoesophageal phase Postprandial epigastric pain R10.13 Postprandial abdominal bloating R14.0 Time Spent (min) 35 Comment 25 minutes spent with patient and additional 10 minutes spent reviewing her records
[2025-04-07 14:39] VITALS: BP 107/55; PULSE 82; O2SAT 100; BMI 20.6
--- OUTSIDE RECORDS SUMMARY | 2025-04-07 17:50 | XMS_ITS | Encounter Summary ---
Author Organization [employer] Address [address] [facility] [address] [place] [address] Care Team Providers Care Belt Cleaner Name Role Phone Yolanda Priest MD Primary Care Provider + King Orlando PharmD Unavailable [phone] Reason for Visit * Reason Onset Date Comments Call Back 03/01/2023 Encounter Details Date Type Department Care Team ([facility] st Contact Info) Description 03/01/2023 Telephone [facility] [address] [place], [place] [phone] Yolanda Priest MD [address] [place], [place] [phone] Call Back Social History Tobacco Use Types [...] PM EDT Tc from [facility] with [facility] requesting to speak with a nurse in regards to a mutual pt. She informs is in regards to a medical release form for a physical that is needed, public relations writer offer to transferover but she prefers to speak with a nurse but at the end I transfer her over but she still wanted me to send message. Please contact pt at [phone] documented in this encounter Plan of Treatment Upcoming Encounters Date Type Department Care Team (Late st Contact Info) Description 04/19/2025 1:00 PM EDT Office Visit [facility] [address] [place] [address] Marek, Megan, OD [address] [place] [address] 04/30/2025 1:00 PM EDT Medication Management [facility] [address] [place] [address] King Orlando, Aditi [address] [place] [address] 05/19/2025 10:00 AM EDT Office Visit [facility] [address] [place] [address] Yolanda Priest MD [address] [place] [address] documented as of this encounter Visit Diagnoses Not on filedocumented in this encounter Additional Health Concerns Assessment Noted Time PHQ-9 Depression Total Score: 7 11/09/19 23 10:16 AM EDT documented as of this encounter Care Teams Belt Cleaner Relationship Specialty Start Date End Date Yolanda Priest MD [address] [place] [phone] PCP - General Family Medicine 01/10/17 King Orlando, DouglasD [address] [place] [address] Pharmacist Internal Medicine 10/02/23 documented as of this encounter
--- OUTSIDE RECORDS SUMMARY | 2025-04-07 17:50 | XMS_ITS | Encounter Summary ---
Author Organization [employer] Address [address] [facility] [address] [place] [address] Care Team Providers Care Laboratory Technologist Name Role Phone Yolanda Priest MD Primary Care Provider + King Orlando PharmD Unavailable [phone] Encounter Details Date Type Department Care Team (Late Contact Info) Description 02/22/2023 Orders Only [facility] MEDICINE [address] [place] [address] [phone] Alice Jennings LPN Social History Tobacco Use [...] Description 04/19/2025 1:00 PM EDT Office Visit [facility] OPTOMETRY [address] [place], [place] [phone] Reyna Jara, OD [address] [place], [place] [phone] 04/30/2025 1:00 PM EDT Medication Management [facility] MEDICINE [address] [place] [address] King Orlando, PharmD [address] [place] [address] 05/19/2025 10:00 AM EDT Office Visit [facility]INE [address] [place] [address] Yolanad Priest MD [address] [place] [phone] documented as of this encounter Visit Diagnoses Not on filedocumented in this encounter Additional Health Concerns Assessment Noted Time PHQ-9 Depression Total Score: 7 11/09/19 23 10:16 AM EDT documented as of this encounter Care Teams Laboratory Technologist Relationship Specialty Start Date End Date Yolanda Priest MD [address] [place] [phone] PCP - General Family Medicine 01/10/17 King Orlando, PharmD [address] [place] [phone] Pharmacist Internal Medicine 10/02/23 documented as of this encounter
--- OUTSIDE RECORDS SUMMARY | 2025-04-07 17:50 | XMS_ITS | Encounter Summary ---
Author Organization [employer] Address [address] [facility] 7[address] [place] [address] Care Team Providers Care Director Of Employer Services Name Role Phone Yolanda Priest MD Primary Care Provider + King Orlando PharmD Unavailable [phone] Reason for Visit * Reason Comments Med Refill Encounter Details Date Type Department Care Team (Late st Contact Info) Description 05/07/2023 Refill [facility] ADULT DENTAL [address] [place], [place] [phone] Virgil Santoyo, STEVEN [address] [place], [place] [phone] Social History Tobacco Use Types Packs/Day Years [...] 1:00 PM EDT Office Visit [facility] OPTOMETRY [address] [place] [address] Reyna Jara, OD [address] [place] [address] 04/30/2025 1:00 PM EDT Medication Management [facility] MEDICINE [address] [place] [address] King Orlando, PharmD [address] [place] [address] 05/19/2025 10:00 AM EDT Office Visit [facility] MEDICINE [address] [place] [address] Yolanda Priest MD [address] [place] [address] documented as of this encounter Visit Diagnoses Not on filedocumented in this encounter Additional Health Concerns Assessment Noted Time PHQ-9 Depression Total Score: 7 11/09/19 23 10:16 AM EDT documented as of this encounter Care Teams Director Of Employer Services Relationship Specialty Start Date End Date Yolanda Priest MD [address] [place] [address] PCP - General Family Medicine 01/10/17 King Orlando PharmD [address] [place] [address] Pharmacist Internal Medicine 10/02/23 documented as of this encounter
--- OUTSIDE RECORDS SUMMARY | 2025-04-07 17:51 | XMS_ITS | Encounter Summary ---
Author Organization [employer] Address [address] [facility] [address] [place] [address] Care Team Providers Care Fender Mechanic Name Role Phone Yolanda Priest MD Primary Care Provider + King Orlando PharmD Unavailable [phone] Encounter Details Date Type Department Care Team (Late st Contact Info) Description 11/27/2022 Orders Only [facility] [address] [place], [place] [phone] Yolanda Priest MD [address] [place], [place] [phone] Uncontrolled type 2 diabetes mellitus with hyperglycemia [...] Description 04/19/2025 1:00 PM EDT Office Visit [facility] OPTOM[facility] [address] [place] [address] Marek Reyna, OD [address] [place] [address] 04/30/2025 1:00 PM EDT Medication Management [facility] [address] [place] [address] King Orlando, Aditi [address] [place] [address] 05/19/2025 10:00 AM EDT Office Visit [facility] [address] [place] [address] Yolanda Priest MD [address] [place] [address] documented as of this encounter Visit Diagnoses Diagnosis Uncontrolled type 2 diabetes mellitus with hyperglycemia (CMS/HCC)- Primary documented in this encounter Additional Health Concerns Assessment Noted Time PHQ-9 Depression Total Score: 7 11/09/19 23 10:16 AM EDT documented as of this encounter Care Teams Fender Mechanic Relationship Specialty Start Date End Date Yolanda Priest MD [address] [place] [address] PCP - General Family Medicine 01/10/17 King Orlando, Aditi [address] [place] [phone] Pharmacist Internal Medicine 10/02/23 documented as of this encounter
--- OUTSIDE RECORDS SUMMARY | 2025-04-07 17:51 | XMS_ITS | Encounter Summary ---
Author Organization [employer] Address [address] [facility] 7t [place] [address] Care Team Providers Care Traveling Buyer Name Role Phone Yolanda Priest MD Primary Care Provider + King Orlando PharmD Unavailable [phone] Reason for Visit * Reason Onset Date Comments Appointment Request 10/26/2024 Encounter Details Date Type Department Care Team ([facility] st Contact Info) Description 10/26/2024 Telephone [facility] MEDICINE [address] [place], [place] [phone] Yolanda Priest MD [address] [place], [place] [phone] Appointment Request Social History Tobacco Use Types [...] Description 04/19/2025 1:00 PM EDT Office Visit [facility] OPTOMETRY [address] [place], [place] [phone] Marek, Reyna, OD [address] [place] [address] 04/30/2025 1:00 PM EDT Medication Management [facility] MEDICINE [address] [place], [place] [phone] King Orlando, PharmD [address] [place] [address] 05/19/2025 10:00 AM EDT Office Visit [facility] MED[facility]INE [address] [place] [address] Yolanda Priest MD [address] [place] [phone] documented as of this encounter Goals Goal [...] documented as of this encounter Care Teams Traveling Buyer Relationship Specialty Start Date End Date Yolanda Priest MD [address] [place] [phone] PCP - General Family Medicine 01/10/17 King Orlando, DouglasD [address] [place] [address] Pharmacist Internal Medicine 10/02/23 documented as of this encounter
--- OUTSIDE RECORDS SUMMARY | 2025-04-07 17:51 | XMS_ITS | Clinical Summary ---
Author Organization [employer] Address 75 [facility] 7t [place] [address] Care Team Providers Care Sexual Assault Social Worker Name Role Phone Yolanda Priest MD Primary Care Provider + King Orlando PharmD Unavailable [phone] Allergies No known active allergies Medications melatonin [...] 30 tablet 11 07/17 Active Continuous Glucose Fabric Worker (FreeStyle Mitch 3 [place]) deviceIndications:Type 2 diabetes mellitus with chronic kidney [...] 2024 Active ergocalciferol (Vitamin D2) 1.25 MG (46323 [place]) capsuleIndications:Pur e hypercholesterolemia TAKE 1 CAPSULE [...] Device topically every 15 days. 2 each 11 2024 Active insulin pen needle (Pentips) 32G x 4 mm miscIndications:Uncont rolled type 2 diabetes mellitus with hyperglycemia ([facility]/HCC) Use three times daily with insulin as directed 100 each 5 2024 Active glucose 4 g chewable tabletIndications:Type 2 diabetes mellitus with chronic kidney disease, with long-term current use of insulin, unspecified CKD stage (CMS/HCC) Chew 4 tablets (16 g) if needed for low blood sugar. 30 tablet 11 03/05 Active esomeprazole (NexIUM) [address] capsule Take 40 mg by mouth in the morning. 2024 Active insulin degludec (Tresiba FlexTouch) 100 UNIT/ML injectionIndications:U ncontrolled type 2 diabetes mellitus with hyperglycemia ([facility]/HCC) INJECT 10 UNITS SUBCUTANEOUSLY ONCE DAILY 2024 Active insulin aspart (NovoLOG FLEXPEN) 100 UNIT/ML penIndications:Type 2 diabetes mellitus with chronic kidney disease, with long-term current use of insulin, unspecified CKD stage ([facility]/HCC) Inject 2-4 units three times daily before meals 2024 Active insulin degludec (Tresiba FlexTouch) 100 UNIT/ML injectionIndications:U ncontrolled type 2 diabetes mellitus with hyperglycemia ([facility]/HCC) INJECT 20 UNITS SUBCUTANEOUSLY ONCE DAILY 15 mL 5 03/11 Discontinued( Reorder (will not trigger notification to Pharmacy)) insulin aspart (NovoLOG FLEXPEN) 100 UNIT/ML penIndications:Type 2 diabetes mellitus with chronic kidney disease, with long-term current use of insulin, unspecified CKD stage (CMS/HCC) Inject 5 units subcutaneously before breakfast and 6 units before dinner as directed. 15 mL 3 03/11 Discontinued( Reorder (will not trigger notification to Pharmacy)) insulin degludec (Tresiba FlexTouch) 100 UNIT/ML injectionIndications:U ncontrolled type 2 diabetes mellitus with hyperglycemia (CMS/HCC) INJECT 16 UNITS SUBCUTANEOUSLY ONCE DAILY 03/15 Discontinued( Reorder (will not trigger notification to Pharmacy)) insulin aspart (NovoLOG FLEXPEN) 100 UNIT/ML penIndications:Type 2 diabetes mellitus with chronic kidney disease, with long-term current use of insulin, unspecified CKD stage (CMS/[facility]) Inject 6 units subcutaneously before breakfast and 6 units before dinner as directed. 03/31 Discontinued( Reorder (will not trigger notification to [...] day for 2 days. 120 mL 03/17 insulin degludec (Tresiba FlexTouch) 100 UNIT/ML injectionIndications:U ncontrolled type 2 diabetes mellitus with hyperglycemia ([facility]) INJECT 20 UNITS SUBCUTANEOUSLY ONCE DAILY 3 mL 11 03/31 Discontinued( Reorder (will not trigger notification to [...] an another apartment since 2022. Will have hiv/aids care nurse/[facility] program to follow-up with her Assessment & Plan (04/20/2023 2:19 PM EDT): Son and family will move out soon and they have leasing contract. Refer to [facility] to help her with rent applications and [...] uncontrolled., pt will fu with endo at [facility] next week. pt to bring glucometer to pharmacy vs order new glucometer continue lantus 40 units + Humalog TID ac meals + po medications. FU with me in 3 months Assessment & Plan (11/08/2022 10:55 AM EDT): Uncontrolled. Increase lantus to 40 units, no change in other medications FU with me in 4 weeks. refer to bottom brusher and reminded pt to be complaint with [...] Encounters Date Type Department Care Team Description 04/07/2025 Telephone [facility] [address] [place] [phone] King Orlando, PharmD 03/16/2025 Patient Outreach [facility] [address] [place] [phone] James Durbin Care Coordination (CHW outreach for SDOH housing search-LVM ) 03/15/2025 9:45 AM EDT Office Visit [facility] [address] [place] [address] 93532 Yolanda Priest MD Uncontrolled type 2 diabetes mellitus with hyperglycemia (CMS/HCC) (Primary Dx); Housing instability due to imminent risk of homelessness; Recurrent major depression in partial remission (CMS/HCC); Weakness 03/15/2025 Results Follow-Up [facility] [address] [place] [address] 17533 Yolanda Priest MD Basic Metabolic Panel, Albumin, Random Urine W/Creatinine 03/15/2025 Orders Only [facility] [place] [place] [address] Yolanda Priest MD 03/15/2025 Travel 03/12/2025 Telephone [facility] [address] [place] [address] 11270 Yolanda Priest MD Chart Prep 03/11/2025 Telephone [facility] [address] [place] [address]32[address] King Orlando, PharmJanelle 03/05/2025 Refill [facility] [address] [place] [address] Yolanda Priest MD Type 2 diabetes mellitus with chronic kidney disease, with long-term current use of insulin, unspecified CKD stage (CMS/HCC) 03/05/2025 Travel 03/05/2025 Patient Outreach [facility] [address] [place] [phone] Yolanda Priest MD Care Coordination (CHW outreach for SDOH housing search-referral completed ) 03/05/2025 Patient Outreach [facility] [address] [place] [address] 13569 Yolanda Priest MD Pre-visit Planning (SDOH screening positive and tobacco screening negative) 02/28/2025 Refill [facility] [address] [place] [address] 89[address] King Orlando, Aditi Type 2 diabetes mellitus with chronic kidney disease, with long-term current use of insulin, unspecified CKD stage (CMS/HCC) 02/25/2025 Telephone [facility] [address] [place] [address] 35674 Yolanda Priest MD Appointment Request 02/17/2025 Refill [facility] [address] [place] [address]882 King Orlando, Aditi Uncontrolled type 2 diabetes mellitus with hyperglycemia (CMS/HCC) 02/06/2025 Refill [facility] [address] [place] [address] King Orlando, PharmJanelle Uncontrolled type 2 diabetes mellitus with hyperglycemia ([facility]/HCC) 01/28/2025 Refill [facility] [address] [place] [address] King Orlando, Aditi Uncontrolled type 2 diabetes mellitus with hyperglycemia ([facility]); Essential hypertension 01/22/2025 Refill [facility] [address] [place] [address] Yolanda Priest MD Pure hypercholesterolemia 01/12/2025 Travel 01/05/2025 Telephone [facility] [address] [place] [address] Yolanda Priest MD Appointment Request 01/05/2025 Telephone [facility] [address] [place] [phone] Yolanda Priest MD Appointment Request from Last [...] Description 04/19/2025 1:00 PM EDT Office Visit [facility] [address] [place] [address] Reyna Jara, OD [address] [place] [address] 04/30/2025 1:00 PM EDT Medication Management [facility] [address] [place] [address] King Orlando, PharmD [address] [place] [address] 05/19/2025 10:00 AM EDT Office Visit [facility] [address] [place] [address] Yolanda Priest MD [address] [place] [address] Health Maintenance Due Date Last Done Comments CT Colonography 1960 Colonoscopy 1960 FIT 1960 Sigmoidoscopy 1960 HPV/Cotest 11/17/1989 FOBT 03/05/2024 03/05/2023 Dental Oral Exam 05/22/2024 11/20/2023 Dental Prophylaxis 06/13/2024 12/11/2023 Dental X-Ray: Bitewings 11/20/2024 11/20/2023 COVID-19 Vaccine ( season) 2025 06/29/2022, 12/01/2021, 12/07/2020, Additional history exists Influenza Vaccine (#1) 2025 , 04/22/2023, 04/26/2022, Additional history exists Diabetes: Hemoglobin A1C 06/05/2025 025, 10/12/2024, 05/27/2024, Additional history exists Eye Exam 10/15/2025 10/15/2024, 09/27, 10/15/2024, Additional history exists Lipid Panel 11/02/2025 [...] Procedure Name Priority Date/Time Associated Diagnosis Comments POTASSIUM Routine 03/30/2025 10:25 AM EDT Hyperkalemia ALBUMIN, RANDOM URINE W/CREATININE Routine 03/15/2025 10:46 AM EDT BASIC METABOLIC PANEL Routine 03/15/2025 10:46 AM EDT POCT GLYCATED HEMOGLOBIN, TOTAL Routine 03/05/2025 1:55 PM EDT Type 2 diabetes mellitus with chronic kidney disease, with long-term current use of insulin, unspecified CKD stage ([facility]) BI MAMMOGRAM SCREENING TOMOSYNTHESIS BILATERAL Routine 11/24/2024 [...] Relevant to Health Maintenance Results * (ABNORMAL) Potassium (03/30/2025 10:25 AM EDT) Potassium 5.5(H) 3.3 - 5.1 mmol/L [facility] Blood Venous blood specimen / Unknown 03/30/2025 10:25 AM EDT 03/30/2025 11:01 AM EDT us Yolanda Priest MD LAB BLOOD ORDERABLES Fin al Result Performing Organization Address [facility] Co de Phone Number [facility] [address] [place] [phone] * (ABNORMAL) Albumin, Random Urine W/Creatinine (03/15/2025 10:46 AM EDT) Creatinine, Urine 42.46 mg/dL [facility] Microalbumin Urine 33.0 mg/L [facility] Microalbum Creatinine Ratio Ur 77.7(H) <30 ug/mg cr [facility] Comment:Albumin/Creatinine R atio Reference Ranges: Normal: < 30 ug/mg creatinine Microalbuminuria: 30 - 300 ug/mg creatinineClinical Albuminuria: > 300 ug/mg creatinine 03/15/2025 10:4 6 AM EDT 03/15/2025 11:18 AM EDT us Yolanda Priest MD LAB URINE ORDERABLES Fin al Result Performing Organization Address [facility] Co de Phone Number [facility] [address] [place] [address] [phone] * (ABNORMAL) Basic Metabolic Panel (03/15/2025 10:46 AM EDT) Sodium 139 135 - 145 mmol/L [facility] Potassium 5.6(H) 3.3 - 5.1 mmol/L [facility] Chloride 107 96 - 108 mmol/L [facility] Carbon Dioxide 25 22 - 29 mmol/L [facility] Anion Gap 13 12 - 20 [facility] Urea Nitrogen (BUN) 17(H) 9 - 16 mg/dL [facility] Creatinine, Serum 0.72 0.5 - 1.4 mg/dL [facility] Estimated Glomerular Filt Rate >60 [facility] Comment:Chronic Kidney Disea se: Estimated GFR < 60 mL/min/1.26z6Tswbek Kidney Disease: Estimated GFR < 15 mL/min/1.73m2 Glucose 186(H) 60 - 115 mg/dL [facility] Calcium 10.1 8.4 - 10.2 mg/dL [facility] 03/15/2025 10:4 6 AM EDT 03/15/2025 11:10 AM EDT us Yolanda Priest MD LAB BLOOD ORDERABLES Fin al Result Performing Organization Address City/State/[facility] Co de Phone Number [facility] [address] [place] [address] [phone] * (ABNORMAL) POCT HGB A1C (03/05/2025 [...] PM EDT Narrative 11/29/2024 7:07 PM EDT [address] [place], [place] [address] Mammography Report Signed Patient: Alice Amin MR#: [id number] : 1960 Acct:[id number] Age/Sex: 64 / F ADM Date: 11/24/24 Loc: HO.MAMMO Attending Dr: Yolanda Priest MD Ordering Physician: Yolanda Priest MD Results: 1Ne gative Date of Service: 11/24/24 Follow Up: 1 Year From Orig ina Mammogram Procedure(s): MM tomosynthesis screening BI Accession Number(s): [id number] cc: Yolanda Priest MD EXAMINATION: MM SCREENING [...] their next mammogram. Electronically signed by: Jannet Borwn DO 11/29/2024 07:05 PM EDT Dictated By: Jannet Brown DO Signed By: <Electronically signed by Jannet Brown DO in OV> 11/29/24 1905 DD/ 1345 TD/TT: 11/24/24 1400 Forging Press Lever Tender: Procedure Note Donotuseinterpreter, Image - 11/29/2024 [facility] [address] [place] [address] [place] [address] Mammography Report Signed Patient: Alice Amin [facility]#: [id number] : 1960Acct:[id number] Age/Sex: 64 / FADM Date: 11/24/24 Loc: HO.MAMMO Attending Dr: Yolanda Priest MD Ordering Physician: Yolanda Priest MDResults: 1Ne gative Date of Service: 11/24/24Follow Up: 1 Year From Orig ina Mammogram Procedure(s): MM tomosynthesis screening BI Accession Number(s): [id number] cc: Yolanda Priest MD EXAMINATION: MM SCREENING [...] 11/29/24 1905 DD/ 1345 TD/TT: 11/24/24 1400 [employer] Press Lever Tender: Yolanda Priest MD IMG BI PROCEDURES Edited Result - Final * (ABNORMAL) Lipid Panel, Standard (11/02/2024 11:38 AM EDT) Triglycerides 136 <150 mg/dL [facility] Comment:Desirable Triglyceri de: less than 150 mg/dLBorderline High Triglyceride 150-199 mg/dLHigh Triglyceride: 200-499 mg/dLVery High Triglyceride: greater than or equal to 5OO mg/dL Cholesterol 197 <200 mg/dL [facility] Comment:Desirable Cholestero l: less than 200 mg/dLBorderline High Cholesterol: 200-239 mg/dLHigh Cholesterol: greater than 239 mg/dL LDL Cholesterol Calculated 118(H) <100 mg/dL [facility] Comment:Desirable LDL: less than 100 mg/dLNear Optimal/Above Optimal LDL: 110- 129 mg/dLBorderline High LDL: 130-159 mg/dLHigh LDL: 160-189 mg/dLVery High LDL: greater than or equal to 190 mg/dL HDL Cholesterol 52 >40 mg/dL [facility] Comment:Desirable HDL: great er than 40 mg/dL Note: This HDL assay may give artificially low results in patients with liver disease. 11/02/2024 11:3 8 AM EDT 11/02/2024 1:04 PM EDT us Yolanda Priest MD LAB BLOOD ORDERABLES Fin al Result [facility] [address] [place] [address] [phone] * Pap Smear (06/12/2024 10:17 AM EST) Swab 06/12/2024 10:1 7 AM EST 06/12/2024 1:50 PM EST Narrative [facility] - 07/01/2024 7:48 AM EST ----- ------- Name: Alice Amin Age/Sex: 63/F : 1960 Unit#: [id number] Attend Dr: Yolanda Priest MD Re06/12/24 Status: DEP [facility] Disch: ----- ------- SPEC : [id number] RECD: 06/12/24 STATUS: SADIE HARVEY NUM: [id number] ANTONIETA: 06/12/24-1017 [facility] DR: Yolanda Priest MD ENTERED: 06/12/24 SP TYPE: Pap Smr OTHR DR: ORDERED: Pap Smear Interpretation Satisfactory for evaluation. Negative for intraepithelial lesion or malignancy. Atrophic. Scant cellularity. HPV High Risk: Negative HPV Genotyping 16: Negative HPV Genotyping 18: Negative Clinical Information LMP: Unknown date Previous PAP test: Five years ago, Unknown findings Material Received ThinPrep-Cervical ----- ------- Signed (signature on file) KATRNI Head ([facility]) 07/01/24 0748 ----- ------- END OF REPORT Yolanda Priest MD LAB CYTOLOGY ORDERABLES Final Result Performing Organization Address City/[facility] Co de Phone Number [facility] [address] [place] [phone] * Hepatitis Panel, General (05/23/2023 2:35 PM EDT) Hepatitis A IgM Nonreactive Nonreactive [facility] Comment:IgM antibodies to BROOKS V not detected; does not exclude earlyacute or recovered HAV infection. ~Hepatitis B Surface Antibody NONREACTIVE Nonreactive [facility] Comment:Nonreactive: < 8.00 mIU/mL Hepatitis B Core Antibody Nonreactive Nonreactive [facility] Hepatitis C Antibody Nonreactive Nonreactive [facility] Comment:Antibodies to HCV no t detected; does not exclude early acuteHCV infection. Hepatitis B Surface Ag Negative Negative [facility] Blood 05/23/2023 2:35 PM EDT 05/23/2023 4:01 PM EDT Yolanda Priest MD LAB BLOOD ORDERABLES Fin al Result Performing Organization Address [facility] Co de Phone Number [facility] [address] [place] [address] [phone] * Cologuard?? colon cancer screening (03/05/2023 2:15 PM EDT) Cologuard Cancer Screen Negative [employer] (CLIA #:[id number]) Stool Anal structure / Unknown 03/05/2023 2:15 PM EDT Yolanda Priest MD LAB MOLECULAR DIAGNOSTIC S ORDERABLES Final Result Performing Organization Address City/[facility]/ZIP Co de Phone Number [facility] (CLIA #:[id number]) [place] [address], [place] [phone] from Last 3 Months or Most Recently Relevant to Health Maintenance Insurance [facility] LONG-TERM OPTIONS (O D-SNP) KEANU PALOMARES [id number] [facility] Care Teams Sexual Assault Social Worker Relationship Specialty Start Date End Date Yolanda Priest MD [address] [place] [address] PCP - General Family Medicine 01/10/17 King Orlando, DouglasD [address] [place] [phone] Pharmacist Internal Medicine 10/02/23
--- OUTSIDE RECORDS SUMMARY | 2025-04-07 17:51 | XMS_ITS | Encounter Summary ---
Author Organization [employer] Address [address] [facility] 7t [place] [address] Care Team Providers Care Psychiatric Cns Name Role Phone Yolanda Priest MD Primary Care Provider + King Orlando PharmD Unavailable [phone] Encounter Details Date Type Department Care Team (Late st Contact Info) Description 04/07/2025 Telephone [facility] [address] [place], [place] [phone] King Orlando, PharmD [address] [place], [place] [phone] Social History Tobacco Use Types Packs/Day Years [...] Telephone Encounter - King Orlando PharmD - 04/07/2025 11:24 AM EDT Pharmacist attempted to call the patient to FU on insulin use and BG measurements. LVM for patient call back when available. documented in this encounter Plan of Treatment Upcoming Encounters Date Type Department Care Team (Late st Contact Info) Description 04/19/2025 1:00 PM EDT Office Visit [facility] [address] [place] [address] Reyna Jara, OD [address] [place] [address] 04/30/2025 1:00 PM EDT Medication Management [facility] [address] [place] [address] King Orlando PharmD [address] [place] [address] 05/19/2025 10:00 AM EDT Office Visit [facility] [address] [place] [address] Yolanda Priest MD [address] [place] [address] documented as of this encounter Goals Goal [...] Assessment Noted Time PHQ-9 Depression Total Score: 3 03/15/20 25 5:02 PM EDT documented as of this encounter Care Teams Psychiatric Cns Relationship Specialty Start Date End Date Yolanda Priest MD [address] [place] [phone] PCP - General Family Medicine 01/10/17 King Orlando PharmD [address] [place] [phone] Pharmacist Internal Medicine 10/02/23 documented as of this encounter
--- OUTSIDE RECORDS SUMMARY | 2025-04-07 17:51 | XMS_ITS | Encounter Summary ---
Author Organization [employer] Address [address] [facility] 7t [place] [address] Care Team Providers Care Project Officer Name Role Phone Yolanda Priest MD Primary Care Provider + King Orlando PharmD Unavailable [phone] Reason for Visit * Reason Comments Med Refill Encounter Details Date Type Department Care Team (Late st Contact Info) Description 02/06/2025 Refill [facility] [address] [place], [place] [phone] King Orlando, PharmD [address] [place], [place] [phone] Uncontrolled type 2 diabetes mellitus with hyperglycemia ([facility]) Social History Tobacco Use Types Packs/Day Years [...] with others, in a hotel, in a usp, living outside on the street, on a [...] Description 04/19/2025 1:00 PM EDT Office Visit [facility] [address] [place] [address] Marek, Reyna, OD [address] [place] [address] 04/30/2025 1:00 PM EDT Medication Management [facility] [address] [place] [address] King Orlando, PharmD [address] [place] [address] 05/19/2025 10:00 AM EDT Office Visit [facility] [address] [place] [phone] Yolanda Priest MD [address] [place] [address] documented as of this encounter Goals Goal Patient Goal Type Associated Problems Recent Progress Patient-Stated? Author Blood Pressure < 140/90 Blood Pressure 120/70(2024 9:21 AM EDT) No King Orlando PharmD Hemoglobin A1c < 7 Result Component 9.3( 1:55 PM EDT) No King Orlando PharmD documented as of this encounter Visit Diagnoses Diagnosis Uncontrolled type 2 diabetes mellitus with hyperglycemia ([facility]) documented in this encounter Additional Health Concerns Assessment Noted Time PHQ-9 Depression Total Score: 13 024 1:39 PM EDT documented as of this encounter Care Teams Project Officer Relationship Specialty Start Date End Date Yolanda Priest MD [address] [place] [address] PCP - General Family Medicine 01/10/17 King Orlando PharmD [address] [place] [phone] Pharmacist Internal Medicine 10/02/23 documented as of this encounter
--- OUTSIDE RECORDS SUMMARY | 2025-04-07 17:51 | XMS_ITS | Encounter Summary ---
Author Organization [employer] Address 75 [facility] 7t [place] [address] Care Team Providers Care Hospital Sales Representative Name Role Phone Yolanda Priest MD Primary Care Provider + King Orlando PharmD Unavailable [phone] Reason for Visit * Reason Onset Date Comments Appointment Request 07/03/2024 Encounter Details Date Type Department Care Team ([facility] st Contact Info) Description 07/03/2024 Telephone [facility] [address] [place], [place] [phone] Yolanda Priest MD [address] [place], [place] [phone] Appointment Request Social History Tobacco Use Types [...] King from 06/24. Please contact pt at [phone]. (Kittitian Speaker) documented in this encounter Plan of Treatment Upcoming Encounters Date Type Department Care Team (Late st Contact Info) Description 04/19/2025 1:00 PM EDT Office Visit [facility] [address] [place], [place] [phone] Reyna Jara, OD [address] [place] [address] 04/30/2025 1:00 PM EDT Medication Management [facility] [address] [place], [place] [phone] King Orlando, PharmD [address] [place] [address] 05/19/2025 10:00 AM EDT Office Visit [facility] [address] [place] [address] Yolanda Priest MD [address] [place] [address] documented as of this encounter Goals Goal [...] documented as of this encounter Care Teams Hospital Sales Representative Relationship Specialty Start Date End Date Yolanda Priest MD [address] [place] [phone] PCP - General Family Medicine 01/10/17 King Orlando, DouglasD [address] [place] [phone] Pharmacist Internal Medicine 10/02/23 documented as of this encounter
--- OUTSIDE RECORDS SUMMARY | 2025-04-07 17:51 | XMS_ITS | Encounter Summary ---
Author Organization [employer] Address [address] 7t [place] [address] Care Team Providers Care Gas Engine Operator Compressors Name Role Phone Yolanda Priest MD Primary Care Provider + King Orlando PharmD Unavailable [phone] Encounter Details Date Type Department Care Team (Late st Contact Info) Description 10/28/2024 Telephone [facility] OPTOMETRY [address] [place], [place] [phone] Marek, Reyna, OD [address] [place], [place] [phone] Social History Tobacco Use Types Packs/Day Years [...] MARY HAGEN Address: [facility] [address] [place] [address] documented in this encounter Plan of Treatment Upcoming Encounters Date Type Department Care Team ([facility] st Contact Info) Description 04/19/2025 1:00 PM EDT Office Visit [facility] OPTOMETRY [address] [place], [place] [phone] Reyna Jara, OD [address] [place] [address] 04/30/2025 1:00 PM EDT Medication Management [address] [address] King Orlando PharmD [address] [place] [address] 05/19/2025 10:00 AM EDT Office Visit [facility] MEDICINE [address] [place] [address] [phone] Yolanda Priest MD [address] [place] [address] documented as of this encounter Goals Goal [...] documented as of this encounter Care Teams Gas Engine Operator Compressors Relationship Specialty Start Date End Date Yolanda Priest MD [address] [place] [address] [phone] PCP - General Family Medicine 01/10/17 King Orlando PharmD [address] [place] [address] [phone] Pharmacist Internal Medicine 10/02/23 documented as of this encounter
--- OUTSIDE RECORDS SUMMARY | 2025-04-07 17:51 | XMS_ITS | Encounter Summary ---
Author Organization [employer] Address [address] 7t [place] [address] Care Team Providers Care Art Teacher Name Role Phone Yolanda Priest MD Primary Care Provider + King Orlando PharmD Unavailable [phone] Reason for Visit * Reason Onset Date Comments Med Refill 09/01/2024 Encounter Details Date Type Department Care Team (Late st Contact Info) Description 09/01/2024 Telephone [facility] MEDICINE [address] [place], [place] [phone] Yolanda Priest MD [address] [place], [place] [phone] Med Refill Social History Tobacco Use Types [...] 09/01/2024 9:33 AM EST Medication sent to [facility] 07/17/24 #30 with 11 refills. * Telephone Encounter - Dez Porter - 09/01/2024 8:55 AM EST TC from pt requesting medication refill. Medications needing refill : Continuous Glucose Sensor (FreeStyle Mitch 3 Plus Sensor) [facility] glipiZIDE XL (Glucotrol XL) 10 MG 24 hr tablet To be sent to: [facility] - [place], [place] - [address] documented in this encounter Plan of Treatment Upcoming Encounters Date Type Department Care Team (Late st Contact Info) Description 04/19/2025 1:00 PM EDT Office Visit [facility] OPTOMETRY [address] [place] [address] Marek Reyna, OD 230 [place] [address] 04/30/2025 1:00 PM EDT Medication Management [facility] MEDICINE [address] [place] [address] King Orlando PharmD [address] [place] [address] 05/19/2025 10:00 AM EDT Office Visit [facility] [address] [place] [address] Yolanda Priest MD [address] [place] [address] documented as of this encounter Goals Goal [...] documented as of this encounter Care Teams Art Teacher Relationship Specialty Start Date End Date Yolanda Priest MD [address] [place] [address] PCP - General Family Medicine 01/10/17 King Orlando PharmD [address] [place] [address] Pharmacist Internal Medicine 10/02/23 documented as of this encounter
--- OUTSIDE RECORDS SUMMARY | 2025-04-07 17:51 | XMS_ITS | Encounter Summary ---
Author Organization [employer] Address [address] [facility] 7t [place] [address] Care Team Providers Care Neurology Hospitalist Name Role Phone Yolanda Priest MD Primary Care Provider + King Orlando PharmD Unavailable [phone] Encounter Details Date Type Department Care Team (Late st Contact Info) Description 03/05/2025 Refill [facility] [address] [place], [place] [phone] Yolanda Priest MD [address] [place], [place] [phone] Type 2 diabetes mellitus with chronic kidney [...] Office Visit [facility] OPTOMETRY [address] [place] [address] Marek, Reyna, OD 230 [place] [address] 04/30/2025 1:00 PM EDT Medication Management [facility] [address] [place] [address] King Orlando, PharmD [address] [place] [address] 05/19/2025 10:00 AM EDT Office Visit [facility] [address] [place] [address] Yolanda Priest MD [address] [place] [address] documented as of this encounter Goals Goal [...] documented as of this encounter Care Teams Neurology Hospitalist Relationship Specialty Start Date End Date Yolanda Priest MD [address] [place] [address] PCP - General Family Medicine 01/10/17 King Orlando PharmD [address] [place] [address] Pharmacist Internal Medicine 10/02/23 documented as of this encounter
--- OUTSIDE RECORDS SUMMARY | 2025-04-07 17:51 | XMS_ITS | Encounter Summary ---
Author Organization [employer] Address [address] [facility] 7t [place] [address] Care Team Providers Care Service Rig Operator Name Role Phone Yolanda Priest MD Primary Care Provider + King Orlando PharmD Unavailable [phone] Reason for Visit * Reason Onset Date Comments Prior Authorization 09/01/2024 Encounter Details Date Type Department Care Team (Late st Contact Info) Description 09/01/[address] [facility] [address] [place], [place] [phone] Yolanda Priest MD [address] [place], [place] [phone] Prior Authorization Social History Tobacco Use Types [...] with others, in a hotel, in a correction, living outside on the street, on a [...] Patient picked up Mitch [address] [facility] pharmacy 08/14/2024. * Telephone Encounter - Dez Porter - 09/01/2024 9:12 AM EST PA request for Continuous Glucose Sensor (FreeStyle Mitch 3 Plus Sensor) [facility]. documented in this encounter Plan of Treatment Upcoming Encounters Date Type Department Care Team (Late st Contact Info) Description 04/19/2025 1:00 PM EDT Office Visit [facility] OPTOMETRY [address] [place] [address] Reyna Jara, OD [address] [place] [address] 04/30/2025 1:00 PM EDT Medication Management [facility] [address] [place] [address] King Orlando PharmD [address] [place] [address] 05/19/2025 10:00 AM EDT Office Visit [facility] [address] [place] [address] Yolanda Priest MD [address] [place] [address] documented as of this encounter Goals Goal [...] documented as of this encounter Care Teams Service Rig Operator Relationship Specialty Start Date End Date Yolanda Priest MD [address] [place] [address] PCP - General Family Medicine 01/10/17 King Orlando PharmD [address] [place] [address] Pharmacist Internal Medicine 10/02/23 documented as of this encounter
--- OUTSIDE RECORDS SUMMARY | 2025-04-07 17:51 | XMS_ITS | Encounter Summary ---
Author Organization [employer] Address [address] [facility] 7t [place] [address] Care Team Providers Care Sales Contracts Analyst Name Role Phone Yolanda Priest MD Primary Care Provider + King Orlando PharmD Unavailable [phone] Reason for Visit * Reason Onset Date Comments Appointment Request 02/25/2025 Encounter Details Date Type Department Care Team ([facility] st Contact Info) Description 02/25/2025 Telephone [facility] MED[facility]INE [address] [place], [place] [phone] Yolanda Priest MD [address] [place], [place] [phone] Appointment Request Social History Tobacco Use Types [...] CDTM visit today. Please contact pt at [phone]. (Martiniquais Speaker) documented in this encounter Plan of Treatment Upcoming Encounters Date Type Department Care Team (Late st Contact Info) Description 04/19/2025 1:00 PM EDT Office Visit [facility] OPTOMETRY [address] [place] [address] Reyna Jara, OD 230 [place] [address] 04/30/2025 1:00 PM EDT Medication Management [facility] [address] [place] [address] King Orlando, PharmD [address] [place] [address] 05/19/2025 10:00 AM EDT Office Visit [facility] [address] [place] [address] Yolanda Priest MD [address] [place] [address] documented as of this encounter Goals Goal [...] documented as of this encounter Care Teams Sales Contracts Analyst Relationship Specialty Start Date End Date Yolanda Priest MD [address] [place] [address] PCP - General Family Medicine 01/10/17 King Orlando, DouglasD [address] [place] [address] Pharmacist Internal Medicine 10/02/23 documented as of this encounter
== END 2025-04-07 15:16 | disposition home or self-care (01) ==
PROVIDERS: PCP Internal Medicine; Visit Provider Nurse Practitioner Family
DX: Z86.19 Personal history of other infectious and parasitic diseases (principal); K21.9 Gastro-esophageal reflux disease without esophagitis; R13.14 Dysphagia, pharyngoesophageal phase; R10.13 Epigastric pain; R14.0 Abdominal distension (gaseous)
CPT/HCPCS: 99214; G2211

== ENCOUNTER 2025-05-03 09:02 | Day surgery (SDC) | payer OTHER, SELFPAY ==
--- OUTSIDE RECORDS SUMMARY | 2025-05-03 08:42 | XMS_ITS | Encounter Summary ---
Author Organization [employer] Address 75 [facility] 7t [place] [address] Care Team Providers Care Shingle Packer Name Role Phone Yolanda Priest MD Primary Care Provider + King Orlando PharmD Unavailable [phone] Encounter Details Date Type Department Care Team (Late st Contact Info) Description 03/05/2025 Refill [facility] MEDICINE 230 [place], [place] [phone] Yolanda Priest MD [address] [place], [place] [phone] Type 2 diabetes mellitus with chronic kidney [...] Care Team (Late st Contact Info) Description 05/05/2025 3:30 PM EDT Telemedicine [facility] [address] [place] [address] King Orlando, PharmD 230 [place] [address] 05/19/2025 10:00 AM EDT Office Visit [facility] [address] [place] [address] Yolanda Priest MD 230 [place] [address] 10/18/2025 2:00 PM EDT Office Visit [facility] OPTOMETRY [address] [place] [address] Reyna Jara OD 230 [place] [address] documented as of this encounter Goals Goal [...] current use of insulin, unspecified CKD stage (HCC) documented in this encounter Additional Health Concerns Assessment Noted Time PHQ-9 Depression Total Score: 13 024 1:39 PM EDT documented as of this encounter Care Teams Shingle Packer Relationship Specialty Start Date End Date Yolanda Priest MD 230 [place] [address] PCP - General Family Medicine 01/10/17 King Orlando PharmD 230 [place] [address] Pharmacist Internal Medicine 10/02/23 documented as of this encounter
--- OUTSIDE RECORDS SUMMARY | 2025-05-03 08:42 | XMS_ITS | Encounter Summary ---
Author Organization [employer] Address [address] [facility] 7t [place] [address] Care Team Providers Care Brick Paving Checker Name Role Phone Yolanda Priest MD Primary Care Provider + King Orlando PharmD Unavailable [phone] Encounter Details Date Type Department Care Team (Late st Contact Info) Description 11/27/2022 Orders Only [facility] MEDICINE 230 [place], [place] [phone] Yolanda Priest MD 230 [place], [place] [phone] Uncontrolled type 2 diabetes mellitus with hyperglycemia [...] Info) Description 05/05/2025 3:30 PM EDT Telemedicine [facility] MEDICINE 230 [place] [address] King Orlando, Aditi 230 [place] [address] 05/19/2025 10:00 AM EDT Office Visit [facility] MEDICINE 230 [place] [address] Yolanda Priest MD 230 [place] [address] 10/18/2025 2:00 PM EDT Office Visit [facility] OPTOMETRY [address] [place], [place] [phone] MarekReyna maravilla, OD 230 [place] [address] documented as of this encounter Visit Diagnoses Diagnosis Uncontrolled type 2 diabetes mellitus with hyperglycemia (HCC)- Primary documented in this encounter Additional Health Concerns Assessment Noted Time PHQ-9 Depression Total Score: 7 11/09/19 23 10:16 AM EDT documented as of this encounter Care Teams Brick Paving Checker Relationship Specialty Start Date End Date Yolanda Priest MD [address] [place] [address] PCP - General Family Medicine 01/10/17 King Orlando, Aditi [address] [place] [address] Pharmacist Internal Medicine 10/02/23 documented as of this encounter
--- OUTSIDE RECORDS SUMMARY | 2025-05-03 08:42 | XMS_ITS | Encounter Summary ---
Author Organization [employer] Address [address] [facility] 7t [place] [address] Care Team Providers Care International Trade Analyst Name Role Phone Yolanda Priest MD Primary Care Provider + King Orlando PharmD Unavailable [phone] Reason for Visit * Reason Comments Med Refill Encounter Details Date Type Department Care Team (Late st Contact Info) Description 05/07/2023 Refill [facility]ULT DENTAL 230 [place], [place] [phone] Virigl Santoyo, STEVEN [address] [place], [place] [phone] Social History Tobacco Use Types Packs/Day Years [...] Info) Description 05/05/2025 3:30 PM EDT Telemedicine [facility] MEDICINE [address] [place] [address] King Orlando, PharmD 230 [place] [address] 05/19/2025 10:00 AM EDT Office Visit [facility] MEDICINE [address] [place] [address] Yolanda Priest MD 230 [place] [address] 10/18/2025 2:00 PM EDT Office Visit [facility] OPTOMETRY [address] [place] [address] Reyna Jara, LUCIA 230 [place] [address] documented as of this encounter Visit Diagnoses Not on filedocumented in this encounter Additional Health Concerns Assessment Noted Time PHQ-9 Depression Total Score: 7 11/09/19 23 10:16 AM EDT documented as of this encounter Care Teams International Trade Analyst Relationship Specialty Start Date End Date Yolanda Priest MD 230 [place] [address] PCP - General Family Medicine 01/10/17 King Orlando, Aditi [address] [place] [address] Pharmacist Internal Medicine 10/02/23 documented as of this encounter
--- OUTSIDE RECORDS SUMMARY | 2025-05-03 08:42 | XMS_ITS | Encounter Summary ---
Author Organization [employer] Address [address] [facility] 7t [place] [address] Care Team Providers Care Automotive Service Cashier Name Role Phone Yolanda Priest MD Primary Care Provider + King Orlando PharmD Unavailable [phone] Reason for Visit * Reason Onset Date Comments Call Back 03/01/2023 Encounter Details Date Type Department Care Team ([facility] st Contact Info) Description 03/01/2023 Telephone [facility] MEDICINE 230 [place], [place] [phone] Yolanda Priest MD 230 [place], [place] [phone] Call Back Social History Tobacco Use Types [...] EDT Tc from [employer] with [facility] 365 requesting to speak with a nurse in regards to a mutual pt. She informs is in regards to a medical release form for a physical that is needed, mortgage loan underwriter offer to transferover but she prefers to speak with a nurse but at the end I transfer her over but she still wanted me to send message. Please contact pt at [phone] documented in this encounter Plan of Treatment Upcoming Encounters Date Type Department Care Team (Late st Contact Info) Description 05/05/2025 3:30 PM EDT Telemedicine [facility] MEDICINE [address] [place] [address] King Orlando, Aditi [address] [place] [address] 05/19/2025 10:00 AM EDT Office Visit [facility] MEDICINE 230 [place] [address] Yolanda Priest MD 230 [place] [address] 10/18/2025 2:00 PM EDT Office Visit [facility] OPTOMETRY [address] [place] [address] Reyna Jara, OD [address] [place] [address] documented as of this encounter Visit Diagnoses Not on filedocumented in this encounter Additional Health Concerns Assessment Noted Time PHQ-9 Depression Total Score: 7 11/09/19 23 10:16 AM EDT documented as of this encounter Care Teams Automotive Service Cashier Relationship Specialty Start Date End Date Yolanda Priest MD [address] [place] [address] PCP - General Family Medicine 01/10/17 King Orlando, DouglasD [address] [place] [address] Pharmacist Internal Medicine 10/02/23 documented as of this encounter
--- OUTSIDE RECORDS SUMMARY | 2025-05-03 08:42 | XMS_ITS | Encounter Summary ---
Author Organization [employer] Address [address] [facility] 7t [place] [address] Care Team Providers Care Office Services Representative Name Role Phone Yolanda Priest MD Primary Care Provider + King Orlando PharmD Unavailable [phone] Reason for Visit * Reason Onset Date Comments Prior Authorization 09/01/2024 Encounter Details Date Type Department Care Team (Late st Contact Info) Description 09/01/2024 Telephone [facility] MEDICINE 230 [place], [place] [phone] Yolanda Priest MD 230 [place], [place] [phone] Prior Authorization Social History Tobacco Use Types [...] Patient picked up Mitch 3 reader from [facility] pharmacy 08/14/2024. * Telephone Encounter - Dez Porter - 09/01/2024 9:12 AM EST PA request for Continuous Glucose Sensor (FreeStyle Mitch 3 Plus Sensor) [facility]. documented in this encounter Plan of Treatment Upcoming Encounters Date Type Department Care Team (Late st Contact Info) Description 05/05/2025 3:30 PM EDT Telemedicine [facility] MEDICINE 230 [place] [address] King Orlando PharmD [address] [place] [address] 05/19/2025 10:00 AM EDT Office Visit [facility] 230 [place] [address] Yolanda Priest MD [address] [place] [address] 10/18/2025 2:00 PM EDT Office Visit [facility] OPTOMETRY [address] [place], [place] [phone] Reyna Jara, OD 230 [place] [address] documented as of this encounter Goals Goal [...] as of this encounter Care Teams Office Services Representative Relationship Specialty Start Date End Date Yolanda Priest MD [address] [place] [address] PCP - General Family Medicine 01/10/17 King Orlando PharmD [address] [place] [address] [phone] Pharmacist Internal Medicine 10/02/23 documented as of this encounter
--- OUTSIDE RECORDS SUMMARY | 2025-05-03 08:42 | XMS_ITS | Clinical Summary ---
Author Organization [employer] Address 75 [facility] 7t [place] [address] Care Team Providers Care Wet Process Assistant Head Miller Name Role Phone Yolanda Priest MD Primary Care Provider + King Orlando PharmD Unavailable [phone] Allergies No known active allergies Medications melatonin 3 MG tablet TAKE 1 TO 2 TABLETS BY MOUTH AT BEDTIME NEEDED Active Blood Pressure Monitor kit Use as directed 3x/week 1 kit Active busPIRone (Buspar) 15 MG tablet TAKE 1 TABLET BY MOUTH TWICE DAILY IN THE MORNING AND IN THE EVENING Active famotidine (Pepcid) 20 MG tablet Take 20 mg by mouth at bedtime. 024 Active meclizine (Antivert) 12.5 MG tablet TAKE 1 TABLET ORALLY 3 TIMES A DAY NEEDED FOR DIZZINESS Active glipiZIDE XL (Glucotrol XL) 10 MG 24 hr tabletIndications:Type 2 diabetes mellitus with chronic kidney disease, with long-term current use of insulin, unspecified CKD stage (HCC) Take 1 tablet (10 mg) by mouth Once per day. Do not crush, chew, or split. 30 tablet 11 024 2024 Active Continuous Glucose Blackener (FreeStyle Mitch 3 Mellott) deviceIndications:Type 2 diabetes mellitus with chronic kidney disease, with long-term current use of insulin, unspecified CKD stage (HCC) 1 Device Use as directed. Use to check BG as directed 1 each 025 Active TRUEplus Lancets 33G miscIndications:Uncontr olled type 2 diabetes mellitus with hyperglycemia (HCC) USE DIRECTED TO TEST BLOOD SUGAR UP TO THREE TIMES DAILY 100 each 5 025 Active Senna-Time 8.6 MG tablet TAKE 2 TABLETS BY MOUTH AT BEDTIME FOR CONSTIPATION 025 Active aspirin (Aspirin Adult Low Dose) 81 MG EC tabletIndications:Type 2 diabetes mellitus with chronic kidney disease, with long-term current use of insulin, unspecified CKD stage (HCC) Take 1 tablet by mouth daily 90 tablet 3 025 Active SITagliptin (Januvia) 100 MG tabletIndications:Type 2 diabetes mellitus with chronic kidney disease, with long-term current use of insulin, unspecified CKD stage (HCC) Take 1 tablet (100 mg) by mouth Once per day. 30 tablet 11 025 Active glucose blood (FreeStyle Precision Akash Test) test stripIndications:Uncont rolled type 2 diabetes mellitus with hyperglycemia (HCC) USE DIRECTED TO TEST BLOOD SUGAR THREE TIMES DAILY 50 strip 5 025 Active Acetaminophen Extra Strength 500 MG tablet TAKE 1 TABLET BY MOUTH EVERY 6 HOURS NEEDED FOR MILD PAIN 120 tablet 025 Active empagliflozin-metFORMIN ER (Synjardy XR) 12.5-1000 MG 24 hr tabletIndications:Type 2 diabetes mellitus with chronic kidney disease, with long-term current use of insulin, unspecified CKD stage (HCC) Take 1 tablet by mouth with breakfast and with evening meal. 60 tablet 025 Active ergocalciferol (Vitamin D2) 1.25 MG (05266 UT) capsuleIndications:Pure hypercholesterolemia TAKE 1 CAPSULE BY MOUTH ONCE A WEEK 12 capsule 1 025 Active rosuvastatin (Crestor) 40 MG tabletIndications:Uncon trolled type 2 diabetes mellitus with hyperglycemia (HCC) TAKE 1 TABLET BY MOUTH EVERY DAY 90 tablet 3 025 Active lisinopril 10 MG tabletIndications:Essen tial hypertension TAKE 1 TABLET BY MOUTH EVERY DAY 90 tablet 3 025 Active ezetimibe (Zetia) 10 MG tabletIndications:Type 2 diabetes mellitus with chronic kidney disease, with long-term current use of insulin, unspecified CKD stage (HCC) TAKE 1 TABLET BY MOUTH ONCE DAILY 90 tablet 1 025 Active Continuous Glucose Sensor (FreeStyle Mitch 3 Plus Sensor) miscIndications:Type 2 diabetes mellitus with chronic kidney disease, with long-term current use of insulin, unspecified CKD stage (HCC) Apply 1 Device topically every 15 days. 2 each Active insulin pen needle (Pentips) 32G x 4 mm miscIndications:Uncontr olled type 2 diabetes mellitus with hyperglycemia (HCC) Use three times daily with insulin as directed 100 each Active glucose 4 g chewable tabletIndications:Type 2 diabetes mellitus with chronic kidney disease, with long-term current use of insulin, unspecified CKD stage (HCC) Chew 4 tablets (16 g) if needed for low blood sugar. 30 tablet 2025 Active esomeprazole (NexIUM) [address] capsule Take 40 mg by mouth in the morning. Active insulin degludec (Tresiba FlexTouch) 100 UNIT/ML injectionIndications:Un controlled type 2 diabetes mellitus with hyperglycemia (HCC) INJECT 10 UNITS SUBCUTANEOUSLY ONCE DAILY Active insulin aspart (NovoLOG FLEXPEN) 100 UNIT/ML penIndications:Type 2 diabetes mellitus with chronic kidney disease, with long-term current use of insulin, unspecified CKD stage (HCC) Inject 2-4 units three times daily before meals Active Active Problems Problem Noted Date Diagnosed [...] an another apartment since 2022. Will have manager medicare/[employer] program to follow-up with her Assessment & Plan (04/20/2023 2:19 PM EDT): Son and family will move out soon and they have leasing contract. Refer to [facility] to help her with rent applications [...] uncontrolled., pt will fu with endo at [facility] next week. pt to bring glucometer to pharmacy vs order new glucometer continue lantus 40 units + Humalog TID ac meals + po medications. FU with me in 3 months Assessment & Plan (11/08/2022 10:55 AM EDT): Uncontrolled. Increase lantus to 40 units, no change in other medications FU with me in 4 weeks. refer to grill prep cook and reminded pt to be complaint with [...] Encounters Date Type Department Care Team Description 04/09/2025 Orders Only [facility] [address] [place] [phone] Provider, MD Luzmaria 04/07/2025 Orders Only GENERIC EXTERNAL DATA DEPARTMENT Provider, Generic External Data 04/07/2025 Telephone [facility] [address] [place] [address] King Orlando, PharmD 03/16/2025 Patient Outreach [address] [address] James Durbin Care Coordination (CHW outreach for SDOR housing search-LVM ) 03/15/2025 9:45 AM EDT Office Visit [facility] [address] [place], [place] [phone] Yolanda Priest MD Uncontrolled type 2 diabetes mellitus with hyperglycemia (CMS/HCC) (Primary Dx); Housing instability due to imminent risk of homelessness; Recurrent major depression in partial remission (CMS/HCC); Weakness 03/15/2025 Results Follow-Up [facility] [address] Yolanda Priest MD Basic Metabolic Panel, Albumin, Random Urine W/Creatinine 03/15/2025 Orders Only [facility] [place] [address] Yolanda Priest MD 03/15/2025 Travel 03/12/2025 Telephone [facility] [address] [place] [phone] Yolanda Priest MD Chart Prep 03/11/2025 Telephone [facility] [address] [place] [address] King Orlando, PharmJanelle 03/05/2025 Refill [facility] [address] [place] [phone] Yolanda Priest MD Type 2 diabetes mellitus with chronic kidney disease, with long-term current use of insulin, unspecified CKD stage (CMS/HCC) 03/05/2025 Travel 03/05/2025 Patient Outreach [facility] [address] [place] [phone] Yolanda Priest MD Care Coordination (CHW outreach for SDOH housing search-referral completed ) 03/05/2025 Patient Outreach [facility] [address] [place] [phone] Yolanda Priest MD Pre-visit Planning (SDOH screening positive and tobacco screening negative) 02/28/2025 Refill [facility] [address] [place] [address] King Orlando, Aditi Type 2 diabetes mellitus with chronic kidney disease, with long-term current use of insulin, unspecified CKD stage (CMS/HCC) 02/25/2025 Telephone [facility] [address] [place] [phone] Yolanda Priest MD Appointment Request 02/17/2025 Refill [facility] [address] [place] [phone] King Orlando, Aditi Uncontrolled type 2 diabetes mellitus with hyperglycemia (CMS/HCC) 02/06/2025 Refill [facility] [address] [place] [address] King Orlando, PharmD Uncontrolled type 2 diabetes mellitus with hyperglycemia ([facility]) from Last 3 Months Immunizations [...] Info) Description 05/05/2025 3:30 PM EDT Telemedicine [facility] [address] [place] [address] King Orlando, PharmD [address] [place] [address] 05/19/2025 10:00 AM EDT Office Visit [facility] [address] [place] [address] Yolanda Priest MD [address] [place] [address] 10/18/2025 2:00 PM EDT Office Visit [facility] [address] [place] [address] MarekReyna, OD [address] [place] [address] Health Maintenance Due Date Last Done Comments [...] 06/05/2025 025, 10/12/2024, 05/27/2024, Additional history exists Lipid Panel 11/02/2025 11/02/2024, 01/27, 11/29/2023, Additional history exists Mammogram 11/24/2025 11/24/2024, 10/28, 11/14/2022, Additional history exists Colorectal Cancer Screening 03/05/2026 FIT DNA/Cologuard 03/05/2026 03/05/2023 SDOH Screening 03/05/2026 03/05/2025 Alcohol/Substance Use Screening 03/15/2026 03/15/2025 Depression Screening 03/15/2026 03/15/2025, 03/15/20 Diabetes: Foot Exam 03/15/2026 03/15/2025, 03/15/2025, 03/15/2025, Additional history exists Tobacco Screening 03/15/2026 03/15/2025 Eye Exam 04/08/2026 04/08/2025, 09/27, 10/15/2024, Additional history exists Dental X-Ray: Full Mouth 11/20/2026 11/20/2023 Cervical [...] 140/90 Blood Pressure 120/70(2024 9:21 AM EDT) King Beaulieu, PharmD Hemoglobin A1c < 7 Result Component 9.3(08/08/202 5 1:55 PM EDT) No King Orlando PharmD Procedures Procedure Name Priority Date/Time Associated Diagnosis Comments HM DIABETES EYE EXAM Routine 04/08/2025 11:01 AM EDT HELICOBACTER PYLORI, UREA BREATH TEST Routine 04/07/2025 3:15 PM EDT POTASSIUM Routine 03/30/2025 10:25 AM EDT Hyperkalemia ALBUMIN, RANDOM URINE W/CREATININE Routine 03/15/2025 10:46 AM EDT BASIC METABOLIC PANEL Routine 03/15/2025 10:46 AM EDT POCT GLYCATED HEMOGLOBIN, TOTAL Routine 03/05/2025 1:55 PM EDT Type 2 diabetes mellitus with chronic kidney disease, with long-term current use of insulin, unspecified CKD stage ([facility]) BI MAMMOGRAM SCREENING TOMOSYNTHESIS BILATERAL [...] Recently Relevant to Health Maintenance Results * Hm Diabetes Eye Exam (04/08/2025 11:01 AM EDT) us Historical Provider HEALTH MAINTENANCE Final Result * Helicobacter pylori, Urea Breath Test (04/07/2025 3:15 PM EDT) H. pylori Breath Test Negative Negative [facility] Comment:Antimicrobials, prot on pump inhibitors and bismuthpreparations are known to suppress H. pylori. Ingestingthese medications within two weeks prior to performing thebreath test may produce negative test results. A positiveresult is still clinically valid. 04/07/2025 3:15 PM EDT 04/08/2025 10:21 AM EDT Generic External Data Provider LAB BODY FLUIDS A ND STOOLS ORDERABLES Final Result [facility] [address] [place] [phone] * (ABNORMAL) Potassium (03/30/2025 10:25 AM EDT) Potassium 5.5(H) 3.3 - 5.1 mmol/L [facility] Blood Venous blood specimen / Unknown 03/30/2025 10:25 AM EDT 03/30/2025 11:01 AM EDT Yolanda Priest MD LAB BLOOD ORDERABLES Fin al Result Performing Organization Address City/[facility]/ZIP Co de Phone Number [facility] [address] [place] [phone] * (ABNORMAL) Albumin, Random Urine W/Creatinine (03/15/2025 10:46 AM EDT) Creatinine, Urine 42.46 mg/dL [facility] Microalbumin Urine 33.0 mg/L [facility] Microalbum Creatinine Ratio Ur 77.7(H) <30 ug/mg cr [facility] Comment:Albumin/Creatinine R atio Reference Ranges: Normal: < 30 ug/mg creatinine Microalbuminuria: 30 - 300 ug/mg creatinineClinical Albuminuria: > 300 ug/mg creatinine 03/15/2025 10:4 6 AM EDT 03/15/2025 11:18 AM EDT us Yolanda Priest MD LAB URINE ORDERABLES Fin al Result Performing Organization Address [facility] Co de Phone Number [facility] [address] [place] [phone] * (ABNORMAL) Basic Metabolic Panel (03/15/2025 10:46 AM EDT) Sodium 139 135 - 145 mmol/L [facility] Potassium 5.6(H) 3.3 - 5.1 mmol/L [facility] Chloride 107 96 - 108 mmol/L [facility] Carbon Dioxide 25 22 - 29 mmol/L [facility] Anion Gap 13 12 - 20 [facility] Urea Nitrogen (BUN) 17(H) 9 - 16 mg/dL [facility] Creatinine, Serum 0.72 0.5 - 1.4 mg/dL [facility] Estimated Glomerular Filt Rate >60 [facility] Comment:Chronic Kidney Disea se: Estimated GFR < 60 mL/min/[id number] Kidney Disease: Estimated GFR < 15 mL/min/1.73m2 Glucose 186(H) 60 - 115 mg/dL [facility] Calcium 10.1 8.4 - 10.2 mg/dL [facility] 03/15/2025 10:4 6 AM EDT 03/15/2025 11:10 AM EDT us Yolanda Priest MD LAB BLOOD ORDERABLES Fin al Result Performing Organization Address [facility] Co de Phone Number [facility] [address] [place] [phone] * (ABNORMAL) POCT HGB A1C (03/05/2025 [...] PM EDT Narrative 11/29/2024 7:07 PM EDT [facility] [address] [place] [address] Mammography Report Signed Patient: Alice Amin MR#: [id number] : 1960 Acct:[id number] Age/Sex: 64 / F ADM Date: 11/24/24 Loc: .MAMMO Attending Dr: Yolanda Priest MD Ordering Physician: Yolanda Priest MD Results: 1Ne gative Date of Service: 11/24/24 Follow Up: 1 Year From Orig ina Mammogram Procedure(s): MM tomosynthesis screening BI Accession Number(s): [id number] cc: Yolanda Priest MD EXAMINATION: MM SCREENING [...] Jannet Brown DO 11/29/2024 07:05 PM EDT RP Dictated By: Jannet Brown DO Signed By: <Electronically signed by Jannet Brown DO in OV> 11/29/24 1905 DD/ 1345 TD/TT: 11/24/24 1400 Hay Buckler: Procedure Note Donotuseinterpreter, Image - 11/29/2024 [facility] [address] [place], [place] [address] Mammography Report Signed Patient: Alice Amin MMR#: [id number] : 1960Acct:[id number] Age/Sex: 64 / FADM Date: 11/24/24 Loc: .MAMMO Attending Dr: Yolanda Priest MD Ordering Physician: Yolanda Priest MDResults: 1Ne gative Date of Service: 11/24/24Follow Up: 1 Year From Orig inal Mammogram Procedure(s): MM tomosynthesis screening BI Accession Number(s): [id number] cc: Yolanda Priest MD EXAMINATION: MM SCREENING [...] Jannet Brown DO 11/29/2024 07:05 PM EDT RP Dictated By: Jannet Brown DO Signed By: <Electronically signed by Jannet Brown DO in OV> 11/29/24 1905 DD/ 1345 TD/TT: 11/24/24 1400 Hay Buckler: us Yolanda Priest MD IMG BI PROCEDURES Edited Result - Final * (ABNORMAL) Lipid Panel, Standard (11/02/2024 11:38 AM EDT) Triglycerides 136 <150 mg/dL [facility] Comment:Desirable Triglyceri de: less than 150 mg/dLBorderline High Triglyceride 150-199 mg/dLHigh Triglyceride: 200-499 mg/dLVery High Triglyceride: greater than or equal to 5OO mg/dL Cholesterol 197 <200 mg/dL [facility] Comment:Desirable Cholestero l: less than 200 mg/dLBorderline High Cholesterol: 200-239 mg/dLHigh Cholesterol: greater than 239 mg/dL LDL Cholesterol Calculated 118(H) <100 mg/dL [facility] Comment:Desirable LDL: less than 100 mg/dLNear Optimal/Above Optimal LDL: 110- 129 mg/dLBorderline High LDL: 130-159 mg/dLHigh LDL: 160-189 mg/dLVery High LDL: greater than or equal to 190 mg/dL HDL Cholesterol 52 >40 mg/dL [facility] Comment:Desirable HDL: great er than 40 mg/dL Note: This HDL assay may give artificially low results in patients with liver disease. 11/02/2024 11:3 8 AM EDT 11/02/2024 1:04 PM EDT us Yolanda Priest MD LAB BLOOD ORDERABLES Fin al Result [facility] [address] [place] [phone] * Pap Smear (06/12/2024 10:17 AM EST) Swab 06/12/2024 10:1 7 AM EST 06/12/2024 1:50 PM EST Eliane [facility] - 07/01/2024 7:48 AM EST ----- ------- Name: Alice Amin Age/Sex: 63/F : 1960 Unit#: [id number] Attend Dr: Yolanda Priest MD Re06/12/24 Status: [facility] Disch: ----- ------- SPEC : [id number] RECD: 06/12/24 STATUS: SADIE HARVEY NUM: [id number] ANTONIETA: 06/12/24-[address] [facility] [address]: Yolanda Priest MD ENTERED: 06/12/24 [...] ------- Signed (signature on file) KATRIN Head ([facility]) 07/01/24 0748 ----- ------- END OF REPORT Yolanda Priest MD LAB CYTOLOGY ORDERABLES Final Result Performing Organization Address [facility] de Phone Number [facility] [address] [place] [phone] * Hepatitis Panel, General (05/23/2023 2:35 PM EDT) [facility] Hepatitis A IgM Nonreactive Nonreactive [facility] Comment:IgM antibodies to BROOKS V not detected; does not exclude earlyacute or recovered HAV infection. ~Hepatitis B Surface Antibody NONREACTIVE Nonreactive [facility] Comment:Nonreactive: < 8.00 mIU/mL Hepatitis B Core Antibody Nonreactive Nonreactive [facility] Hepatitis C Antibody Nonreactive Nonreactive [facility] Comment:Antibodies to HCV no t detected; does not exclude early acuteHCV infection. Hepatitis B Surface Ag Negative Negative [facility] Blood 05/23/2023 2:35 PM EDT 05/23/2023 4:01 PM EDT Yolanda Priest MD LAB BLOOD ORDERABLES Fin al Result Performing Organization Address [facility] Co de Phone Number [facility] [address] [place] [phone] * Cologuard?? colon cancer screening (03/05/2023 2:15 PM EDT) Cologuard Cancer Screen Negative [employer] (CLIA #:[id number]) Stool Anal structure / Unknown 03/05/2023 2:15 PM EDT Yolanda Priest MD LAB MOLECULAR DIAGNOSTIC S ORDERABLES Final Result [employer] (CLIA #:[id number]) [place] [address] [place] [address], [place] [phone] from Last 3 Months or Most Recently Relevant to Health Maintenance Insurance [facility] ASSISTED OPTIONS (HMO D-SNP) [place]OMARES [id number] [facility] Care Teams Wet Process Assistant Head Miller Relationship Specialty Start Date End Date Yolanda Priest MD [address] [place] [address] PCP - General Family Medicine 01/10/17 King Orlando, DoulgasD [address] [place] [phone] Pharmacist Internal Medicine 10/02/23
--- OUTSIDE RECORDS SUMMARY | 2025-05-03 08:42 | XMS_ITS | Encounter Summary ---
Author Organization [employer] Address [address] [facility] 7t [place] [address] Care Team Providers Care Fine Unhairer Name Role Phone Yolanda Priest MD Primary Care Provider + King Orlando PharmD Unavailable [phone] Encounter Details Date Type Department Care Team (Late st Contact Info) Description 04/09/2025 Orders Only [facility] [address] [place], [place] [phone] ProviderLuzmaria MD Social History Tobacco Use Types Packs/Day Years [...] 05/05/2025 3:30 PM EDT Telemedicine [facility] [address] [place] [address] King Orlando, PharmD [address] [place] [address] 05/19/2025 10:00 AM EDT Office Visit [facility] [address] [place] [address] Yolanda Priest MD [address] [place] [address] 10/18/2025 2:00 PM EDT Office Visit [facility] [address] [place] [address] Reyna Jara, LUCIA [address] [place] [address] documented as of this encounter Goals Goal Patient Goal Type Associated Problems Recent Progress Patient-Stated? Author Blood Pressure < 140/90 Blood Pressure 120/70(2024 9:21 AM EDT) No King Orlando PharmD Hemoglobin A1c < 7 Result Component 9.3( 1:55 PM EDT) No King Orlando PharmD documented as of this encounter Procedures Procedure Name Priority Date/Time Associated Diagnosis Comments DIABETES EYE EXAM Routine 04/08/2025 11:01 AM EDT documented in this encounter Results * Hm Diabetes Eye Exam (04/08/2025 11:01 AM EDT) us Historical Provider HEALTH MAINTENANCE Final Result documented in this encounter Visit Diagnoses Not on filedocumented in this encounter Additional Health Concerns Assessment Noted Time PHQ-9 Depression Total Score: 3 03/15/20 25 5:02 PM EDT documented as of this encounter Care Teams Fine Unhairer Relationship Specialty Start Date End Date Yolanda Priest MD [address] [place] [address] PCP - General Family Medicine 01/10/17 King Orlando PharmD [address] [place] [address] Pharmacist Internal Medicine 10/02/23 documented as of this encounter
--- OUTSIDE RECORDS SUMMARY | 2025-05-03 08:42 | XMS_ITS | Encounter Summary ---
Author Organization [employer] Address [address] [facility] 7t [place] [address] Care Team Providers Care Door Manager Name Role Phone Yolanda Priest MD Primary Care Provider + King Orlando PharmD Unavailable [phone] Reason for Visit * Reason Onset Date Comments Med Refill 09/01/2024 Encounter Details Date Type Department Care Team (Late st Contact Info) Description 09/01/2024 Telephone [facility] [address] [place], [place] [phone] Yolanda Priest MD [address] [place], [place] [phone] Med Refill Social History Tobacco Use Types [...] 09/01/2024 9:33 AM EST Medication sent to [facility] 07/17/24 #30 with 11 refills. * Telephone Encounter - Dez Porter - 09/01/2024 8:55 AM EST TC from pt requesting medication refill. Medications needing refill : Continuous Glucose Sensor (FreeStyle Mitch 3 Plus Sensor) [facility] glipiZIDE XL (Glucotrol XL) 10 MG 24 hr tablet To be sent to: [facility] - [place], [place] - [address] documented in this encounter Plan of Treatment Upcoming Encounters Date Type Department Care Team (Late st Contact Info) Description 05/05/2025 3:30 PM EDT Telemedicine [facility] [address] [place] [address] King Orlando PharmD [address] [place] [address] 05/19/2025 10:00 AM EDT Office Visit [facility] [address] [place] [address] Yolanda Priest MD [address] [place] [address] 10/18/2025 2:00 PM EDT Office Visit [facility] [address] [place] [address] Reyna Jara, OD [address] [place] [address] documented as of this encounter Goals Goal [...] documented as of this encounter Care Teams Door Manager Relationship Specialty Start Date End Date Yolanda Priest MD [address] [place] [phone] PCP - General Family Medicine 01/10/17 King Orlando PharmD [address] [place] [address] [phone] Pharmacist Internal Medicine 10/02/23 documented as of this encounter
--- OUTSIDE RECORDS SUMMARY | 2025-05-03 08:42 | XMS_ITS | Encounter Summary ---
Author Organization [employer] Address [address] [place] [address] 7t [place] [address] Care Team Providers Care Ocean Rescue Lieutenant Name Role Phone Yolanda Priest MD Primary Care Provider + King Orlando PharmD Unavailable [phone] Encounter Details Date Type Department Care Team (Late st Contact Info) Description 02/22/2023 Orders Only [facility] MEDICINE [address] [place] [address] [phone] Alice Jennings LPN Social History Tobacco Use [...] Info) Description 05/05/2025 3:30 PM EDT Telemedicine [facility] MEDICINE [address] [place] [address] [phone] King Orlando, PharmD [address] [place] [address] 05/19/2025 10:00 AM EDT Office Visit [facility] [address] [place] [address] [place] [address] Yolanda Priest MD [address] [place] [address] 10/18/2025 2:00 PM EDT Office Visit [facility] OPTOMETRY [address] [place] [address] Marek, Reyna, OD 230 [place] [address] documented as of this encounter Visit Diagnoses Not on filedocumented in this encounter Additional Health Concerns Assessment Noted Time PHQ-9 Depression Total Score: 7 11/09/19 23 10:16 AM EDT documented as of this encounter Care Teams Ocean Rescue Lieutenant Relationship Specialty Start Date End Date Yolanda Priest MD [address] [place] [address] [phone] PCP - General Family Medicine 01/10/17 King Orlando, DouglasD [address] [place] [address] [phone] Pharmacist Internal Medicine 10/02/23 documented as of this encounter
--- OUTSIDE RECORDS SUMMARY | 2025-05-03 08:42 | XMS_ITS | Encounter Summary ---
Author Organization [employer] Address [address] [facility] [address] 7[address] [place] [address] Care Team Providers Care Dump Truck Driver Name Role Phone Yolanda Priest MD Primary Care Provider + King Orlando PharmD Unavailable [phone] Encounter Details Date Type Department Care Team (Late st Contact Info) Description 10/28/2024 Telephone [facility] OPTOMETRY [address] [place], [place] [phone] Marek, Reyna, OD [address] [place], [place] [phone] Social History Tobacco Use Types Packs/Day Years [...] MARY HAGEN Address: [facility] [address] [place] [address] documented in this encounter Plan of Treatment Upcoming Encounters Date Type Department Care Team (Late st Contact Info) Description 05/05/2025 3:30 PM EDT Telemedicine [facility] MED[facility]INE [address] [place], [place] [phone] King Orlando, PharmD 230 [place], [place] [phone] 05/19/2025 10:00 AM EDT Office Visit [facility] [address] [place] [address] Yolanda Priest MD 230 [place] [address] 10/18/2025 2:00 PM EDT Office Visit [facility] OPTOMETRY [address] [place] [address] Marek, Megan, OD 230 [place] [address] documented as of this encounter Goals Goal Patient Goal Type Associated Problems Recent Progress Patient-Stated? Author Blood Pressure < 140/90 Blood Pressure 120/70(2024 9:21 AM EDT) No King Orlando, PharmJanelle Hemoglobin A1c < 7 Result Component 9.3( 1:55 PM EDT) No King Orlando, PharmD documented as of this encounter Visit Diagnoses Not on filedocumented in this encounter Additional Health Concerns Assessment Noted Time PHQ-9 Depression Total Score: 13 024 1:39 PM EDT documented as of this encounter Care Teams Dump Truck Driver Relationship Specialty Start Date End Date Yolanda Priest MD [address] [place] [phone] PCP - General Family Medicine 01/10/17 King Orlando PharmD [address] [place] [address] [phone] Pharmacist Internal Medicine 10/02/23 documented as of this encounter
--- OUTSIDE RECORDS SUMMARY | 2025-05-03 08:42 | XMS_ITS | Encounter Summary ---
Author Organization [employer] Address [address] [place] [address] 7t [place] [address] Care Team Providers Care Pre Sales Technical Consultant Name Role Phone Yolanda Priest MD Primary Care Provider + King Orlando PharmD Unavailable [phone] Reason for Visit * Reason Onset Date Comments Appointment Request 10/26/2024 Encounter Details Date Type Department Care Team ([facility] st Contact Info) Description 10/26/2024 Telephone [facility] MEDICINE 230 [place], [place] [phone] Yolanda Priest MD 230 [place], [place] [phone] Appointment Request Social History Tobacco Use Types [...] Info) Description 05/05/2025 3:30 PM EDT Telemedicine [facility] MEDICINE [address] [place] [address] King Orlando, PharmD 230 [place] [address] 05/19/2025 10:00 AM EDT Office Visit [facility] MEDICINE [address] [place] [phone] Yolanda Priest MD 230 [place] [address] 10/18/2025 2:00 PM EDT Office Visit [facility] OPTOMETRY [address] [place], [place] [phone] Marek Reyna, OD 230 [place] [address] documented as of this encounter Goals Goal [...] documented as of this encounter Care Teams Pre Sales Technical Consultant Relationship Specialty Start Date End Date Yolanda Priest MD 230 [place] [address] PCP - General Family Medicine 01/10/17 King Orlando PharmD [address] [place] [phone] Pharmacist Internal Medicine 10/02/23 documented as of this encounter
--- OUTSIDE RECORDS SUMMARY | 2025-05-03 08:42 | XMS_ITS | Encounter Summary ---
Author Organization [employer] Address [address] [facility] 7t [place] [address] Care Team Providers Care Cupola Patcher Helper Name Role Phone Yolanda Priest MD Primary Care Provider + King Orlando PharmD Unavailable [phone] Reason for Visit * Reason Comments Med Refill Encounter Details Date Type Department Care Team (Late st Contact Info) Description 02/06/2025 Refill [facility] MEDICINE [address] [place], [place] [phone] King Orlando, PharmD 230 [place], [place] [phone] Uncontrolled type 2 diabetes mellitus with hyperglycemia ([facility]) Social History Tobacco Use Types Packs/Day Years [...] Info) Description 05/05/2025 3:30 PM EDT Telemedicine [facility] MEDICINE [address] [place] [address] King Orlando, PharmD [address] [place] [address] 05/19/2025 10:00 AM EDT Office Visit [facility] MEDICINE [address] [place] [address] Yolanda Priest MD 230 [place] [address] 10/18/2025 2:00 PM EDT Office Visit [facility] OPTOMETRY [address] [place] [phone] Reyna Jara, OD 230 [place] [address] documented as of this encounter Goals Goal Patient Goal Type Associated Problems Recent Progress Patient-Stated? Author Blood Pressure < 140/90 Blood Pressure 120/70(2024 9:21 AM EDT) No King Orlando PharmD Hemoglobin A1c < 7 Result Component 9.3( 1:55 PM EDT) No King Orlando PharmD documented as of this encounter Visit Diagnoses Diagnosis Uncontrolled type 2 diabetes mellitus with hyperglycemia (HCC) documented in this encounter Additional Health Concerns Assessment Noted Time PHQ-9 Depression Total Score: 13 024 1:39 PM EDT documented as of this encounter Care Teams Cupola Patcher Helper Relationship Specialty Start Date End Date Yolanda Priest MD 230 [place] [address] PCP - General Family Medicine 01/10/17 King Orlando PharmD [address] [place] [address] Pharmacist Internal Medicine 10/02/23 documented as of this encounter
--- OUTSIDE RECORDS SUMMARY | 2025-05-03 08:42 | XMS_ITS | Encounter Summary ---
Author Organization [employer] Address [address] [facility] 7t [place] [address] Care Team Providers Care Imaging Administrator Name Role Phone Yolanda Priest MD Primary Care Provider + King Orlando PharmD Unavailable [phone] Reason for Visit * Reason Onset Date Comments Appointment Request 02/25/2025 Encounter Details Date Type Department Care Team ([facility] st Contact Info) Description 02/25/2025 Telephone [facility] MEDICINE 230 [place], [place] [phone] Yolanda Priest MD 230 [place], [place] [phone] Appointment Request Social History Tobacco Use Types [...] with others, in a hotel, in a fci, living outside on the street, on a [...] CDTM visit today. Please contact pt at [phone]. (Amharic Speaker) documented in this encounter Plan of Treatment Upcoming Encounters Date Type Department Care Team (Late st Contact Info) Description 05/05/2025 3:30 PM EDT Telemedicine [facility] MEDICINE [address] [place] [address] King Orlando, PharmD 230 [place] [address] 05/19/2025 10:00 AM EDT Office Visit [facility] MEDICINE [address] [place] [address] Yolanda Priest MD [address] [place] [address] 10/18/2025 2:00 PM EDT Office Visit [facility] OPTOMETRY [address] [place], [place] [phone] Marek Reyna, OD 230 [place] [address] documented as of this encounter Goals Goal [...] documented as of this encounter Care Teams Imaging Administrator Relationship Specialty Start Date End Date Yolanda Priest MD 230 [place] [address] PCP - General Family Medicine 01/10/17 King Orlando PharmD [address] [place] [address] Pharmacist Internal Medicine 10/02/23 documented as of this encounter
--- OUTSIDE RECORDS SUMMARY | 2025-05-03 08:42 | XMS_ITS | Encounter Summary ---
Author Organization [employer] Address [address] [facility] 7t [place] [address] Care Team Providers Care In Flight Technician Name Role Phone Yolanda Priest MD Primary Care Provider + King Orlando PharmD Unavailable [phone] Reason for Visit * Reason Onset Date Comments Appointment Request 07/03/2024 Encounter Details Date Type Department Care Team ([facility] st Contact Info) Description 07/03/2024 Telephone [facility] MEDICINE 230 [place], [place] [phone] Yolanda Priest MD 230 [place], [place] [phone] Appointment Request Social History Tobacco Use Types [...] King from 06/24. Please contact pt at [phone]. (Tamazight Speaker) documented in this encounter Plan of Treatment Upcoming Encounters Date Type Department Care Team (Late st Contact Info) Description 05/05/2025 3:30 PM EDT Telemedicine [facility] MEDICINE [address] [place] [address] King Orlando, PharmD [address] [place] [address] 05/19/2025 10:00 AM EDT Office Visit [facility] MEDICINE [address] [place] [address] Yolanda Priest MD [address] [place] [address] 10/18/2025 2:00 PM EDT Office Visit [facility] OPTOMETRY [address] [place], [place] [phone] MarekReyna, OD 230 [place] [address] documented as of this encounter Goals Goal [...] documented as of this encounter Care Teams In Flight Technician Relationship Specialty Start Date End Date Yolanda Priest MD 230 [place] [address] PCP - General Family Medicine 01/10/17 King Orlando PharmD [address] [place] [address] Pharmacist Internal Medicine 10/02/23 documented as of this encounter
[2025-05-03 09:25] VITALS: BMI 24.2
--- NOTE | 2025-05-03 09:32 | MHC.SHP ---
Pre-Procedural Eval Section A - 24 Hr Update-Section A only Date of Service: 05/03/25 Section B - Complete if H&P > 30 days Chief Complaint: Dysphagia,gerd,screening Relevant Family History (Specify if Yes): No Relevant Social History: None Present Medications: see Short Stay Collaborative assessment Medical History: Significant History ( Arthritis Asthma Back pain Depression Diabetes mellitus Hypercholesterolemia Peripheral neuropathy) History of Previous Operations: Relevant previous surgery/procedure and date(s) (H/O tubal ligation History of colonoscopy) Allergies: Allergies Allergy/AdvReac Type Severity Reaction Status Date / Time No Known Allergies (No Known Allergy Verified 04/07/25 14:38 Allergies*) Review of Systems Sugical H&P ROS: Negative: Constitution, Cardiovascular, Respiratory, Neurological, Psychiatric, Hem-Onc, Allergic/Immunologic, Gastrointestinal, Genitourinary, Musculoskeletal, Integumentary, Endocrine and Eyes/Ears/Nose/Throat Exam Surgical H&P Exam: Normal: HEENT, Normal: Heart, Normal: Lungs, Normal: Extremities, Normal: Abdomen, Normal: Skin and Normal: Neurological Plan Diagnosis/Plan: Unchanged I have reviewed the history and physical and performed a pertinent physical examination on my patient. No changes have occurred unless specified. Time Spent With Patient Time: Total time managing care of this patient today ____ minutes.
[2025-05-03 09:54] VITALS: BP 137/86; PULSE 100; RESP 16; TEMP 36.9; O2SAT 100
[2025-05-03 10:00] LABS: Glucose, Whole Blood 158 mg/dL (60-115)
--- NOTE | 2025-05-03 10:19 | HO.ANESPROP2 ---
HPI - Anesthesia Eval Consult details Narrative: 64yo F for EGD PMFSH Active Problems Active Problems: All Active Problems (Updated 04/07/25 @ 14:59 [facility] History of Helicobacter pylori infection (Acute) Arthritis of both knees (Acute) Valgus deformity, not elsewhere classified, right knee (Acute) Arthritis of right knee (Acute) Right knee pain (Acute) Diabetes mellitus (Acute) Stroke (Acute) Bilateral carotid artery stenosis (Acute) Tingling of left upper extremity (Acute) Carotid stenosis (Acute) Fracture of base of fifth metatarsal bone of left foot (Acute) Cholecystitis, acute with cholelithiasis (Acute) Past Medical History Medical History (Updated 04/07/25 @ 14:59 by LAYTON BelcherSTACEY) History of Helicobacter pylori infection Encounter for colorectal cancer screening using Cologuard test Depression Peripheral neuropathy Asthma Back pain Arthritis Hypercholesterolemia Diabetes mellitus Family History Family History Father Lung cancer Prostate cancer Emphysema lung Family history of problems with anesthesia: No Surgical History Surgical History Hx of cholecystectomy (~2021) H/O tubal ligation History of Problems with Anesthesia: No Social History Social History Household Members: Family and Children Housing: Apartment Do you presently have visiting nurse or other home services: No Alcohol intake: never Patient Tobacco Use Status: Never used Tobacco e-Cigarette/Vaping Use: Never Used Second Hand Smoke Exposure: Yes Use of substances other than those prescribed or required for medical reasons: No Advance Directives: No Advance Directives Information Provided: Yes service: No Current occupational status: retired Current occupation: rt handed Meds Allergies Allergy/AdvReac Type Severity Reaction Status Date / Time No Known Allergies (No Known Allergy Verified 04/07/25 14:38 Allergies*) Home Medications ?Medication ?Instructions ?Recorded ?Confirmed ?Last Taken ?Type acetaminophen 650 mg 650 mg PO Q8H PRN Pain 12/28/20 01/02/22 01/02/22 History tablet,extended release albuterol sulfate 90 mcg/actuation 2 puff inhalation Q4-6H PRN 06/02/21 06/07/22 06/07/22 History aerosol inhaler (Ventolin HFA) Shortness Of Breath fluoxetine 40 mg capsule 40 mg PO QAM 12/28/20 01/02/22 01/02/22 History fluticasone propionate 50 1 spray intranasal DAILY 12/28/20 01/02/22 01/02/22 History mcg/actuation nasal spray,suspension metformin 1,000 mg tablet 1,000 mg PO BID 12/28/20 01/02/22 01/02/22 History insulin glargine 100 unit/mL (3 35 unit subcut QPM 04/07/21 01/02/22 01/01/22 History mL) subcutaneous pen (Lantus Solostar U-100 Insulin) blood pressure test kit-large #1 ea 03/13/24 Unknown History blood sugar diagnostic (FreeStyle #10 ea 03/13/24 Unknown History Precision Akash Strips) buspirone 15 mg tablet 15 mg PO BID 03/13/24 Unknown History calcium 500 mg (as 1 tab PO BID 03/13/24 Unknown History carbonate)-vitamin D3 5 mcg (200 unit) tablet (Oyster Shell Calcium-Vitamin D3) dulaglutide 1.5 mg/0.5 mL mg subcut 03/13/24 Unknown History subcutaneous pen injector (Trulicity) empagliflozin 25 mg tablet 25 mg PO DAILY 03/13/24 Unknown History (Jardiance) ergocalciferol (vitamin D2) 1,250 1,250 mcg PO QWEEK 03/13/24 Unknown History mcg (50,000 unit) capsule flash glucose sensor (FreeStyle #1 ea 03/13/24 Unknown History Mitch 2 Sensor kit) insulin degludec 100 unit/mL (3 unit subcut 03/13/24 Unknown History mL) subcutaneous pen (Tresiba FlexTouch U-100 insulin) lancets 33 gauge (TRUEplus Lancets) #100 ea 03/13/24 Unknown History melatonin 3 mg tablet mg PO 03/13/24 Unknown History pen needle, diabetic 32 gauge x #1,200 ea 03/13/24 Unknown History (Pentips Pen Needle) rosuvastatin 40 mg tablet 40 mg PO DAILY 03/13/24 Unknown History glipizide 5 mg tablet, extended 5 mg PO DAILY 09/18/24 Unknown History release 24 hr lisinopril 10 mg tablet 10 mg PO DAILY 09/18/24 Unknown History Exam Height,Weight and Vital Signs: Height 5 ft Weight 123 lb 14.397 oz Last Vital Signs Temp 98.5 F 05/03/25 09:54 Pulse 100 05/03/25 09:54 Resp 16 05/03/25 09:54 BP 137/86 05/03/25 09:54 Pulse Ox 100 05/03/25 09:54 O2 Del Method Room Air 05/03/25 09:54 Pertinent Lab Results Pertinent Lab Results: Laboratory Tests 05/03/25 09:56 POC Glucose 158 H Airway Mallampati Class: II TM Dist: >3cm Neck ROM: Full Denture: Lower Partial: Upper Loose/Missing/Broken Teeth: No Heart: RRR Lungs: CTA Assessment and Plan Assessment Anesthesia Assessment: Anesthesia Plan Discussed Final Anesthetic Review Family History of Problems with Anesthesia: No History of Problems with Anesthesia: No NPO: Yes ASA Class: III Patient Risk: Low Procedure Risk: Low Anesthetic Plan Anesthetic Plan: MAC: Disposition: Standard PACU
--- NOTE | 2025-05-03 10:44 | W.PM.OPN ---
Operative Note Operative Note Date of Service: 05/03/25 Narrative: Procedure Description: EGD Indication: dysphagia Anesthesia: MAC FLEXIBLE TRANSORAL UPPER GASTROINTESTINAL ENDOSCOPY UPPER ENDOSCOPY Consent: Indications for the procedure and potential complications of bleeding, perforation, reaction to medications and missed diagnosis were discussed with the patient and informed consent was obtained. Instrument: Olympus GIF H 190 J mid size upper endoscope Monitoring: Vital signs and clinical assessment, continuous EKG monitoring, Pulse oximetry, Carbon Dioxide monitoring and blood pressure monitoring were done throughout the procedure. Procedure: The patient was placed in the left lateral decubitis position and pre-procedure medications were administered and a bite block was placed. The endoscope was inserted into the mouth and advanced under direct vision to the third part of duodenum. A careful inspection was made as the upper endoscope was withdrawn including a retroflexed examination of the proximal stomach; Findings and interventions are described below. Findings: Larynx:normal Esophagus: GE junction at 35 cm, diaphragm hiatus at 35 cm, mild esophagitis at GEJ, bx taken from here and distal/proximal esophagus, balloon dilation to 20 mm at UES and LES, no tears seen Stomach: mild gastritis . Biopsies were obtained. Grade 2 flap valve on retroflexed examination of the cardia. Duodenum: mild bulbar duodenitis, bx taken Intervention: Biopsies as noted above, balloon dilation Impression/Findings: gastritis duodenitis esophagitis PLAN: cont with PPI GERD precautions r/s colonoscopy
[2025-05-03 10:50] VITALS: BP 129/64; PULSE 86; RESP 22; TEMP 36.2; O2SAT 99
[2025-05-03 11:06] VITALS: BP 141/73; PULSE 86; RESP 16; TEMP 36.2; O2SAT 99
== END 2025-05-03 11:47 | disposition home or self-care (01) ==
PROVIDERS: PCP Internal Medicine; Visit Provider Internal Medicine Gastroenterology
PROC: (CPT 43249; principal; 2025-05-03 10:50)
DX: R13.14 Dysphagia, pharyngoesophageal phase (principal); K21.00 Gastro-esophageal reflux disease with esophagitis, without bleeding; K29.70 Gastritis, unspecified, without bleeding; K29.80 Duodenitis without bleeding; E11.9 Type 2 diabetes mellitus without complications; J45.909 Unspecified asthma, uncomplicated; Z86.19 Personal history of other infectious and parasitic diseases
CPT/HCPCS: 43249; 43239; 82947; 88305; 88313; 88342; C1726; J2003; J2704

== ENCOUNTER → 2025-05-03 09:02 | Outpatient (BNV) | payer OTHER, SELFPAY | PROVIDERS: PCP Internal Medicine; Visit Provider Internal Medicine Gastroenterology | DX: R13.10 Dysphagia, unspecified (principal); K20.90 Esophagitis, unspecified without bleeding; K29.70 Gastritis, unspecified, without bleeding; K29.80 Duodenitis without bleeding | CPT/HCPCS: 43239; 43249 ==

== ENCOUNTER 2025-07-07 13:04 | Outpatient (AMB) | payer OTHER, SELFPAY ==
--- NOTE | 2025-07-07 13:06 | A.OFFVIS_ITS ---
Vital Signs 07/07/25 13:08 Height 5 ft 4 in Weight 122 lb BMI 20.9 BP 148/70 H Blood Pressure Location Rt brachial Position Sitting Pulse 104 H Pulse Source Pulse Oximeter Pulse Oximetry (%) 100 Oxygen Delivery Method Room Air Intake Visit Reasons: 3m Intake Note: Est pt for mgmt of GERD w/ dysphagia. S/P Duo. CC; Pt denies any current GI sx or concerns. Confirms she is taking her current Rx and is doing OK. Automatic Centrifugal Station Operator Required: Yes Automatic Centrifugal Station Operator Services: Automatic Centrifugal Station Operator Present Automatic Centrifugal Station Operator Name: Grant [id number] + Pierre (GI) Information Interpreted: clinical only Accompanied by: Self / Same As Patient Allergies No Known Allergies (No Known Allergies*) Allergy (Verified 07/07/25 13:06) HPI HPI 3m: Details: LAST VISIT History of Helicobacter pylori infection Gastroesophageal reflux disease Dysphagia Postprandial epigastric pain Postprandial abdominal bloating Plan Will retest for H pylori for indication of bacteria. Continue famotidine and Nexium. Avoid dietary triggers and late night snacking. Patient reports she is feeling much better. Discussed however with patient avoiding dietary triggers and late night snacking. Staying upright for minimum 3 hours after meals discussed with patient. Patient will follow-up in our office in 3 months, sooner on as needed basis. She is agreeable to this plan and verbalizes understanding of instructions. She was given the opportunity to ask questions and all questions answered. ? Thank you for allowing me to participate in her care Orders H Pylori Breath Test 04/07/25 K21.9 Refilled famotidine 20 mg PO BEDTIME 90 tabs 3RF 90 days K21.9 esomeprazole magnesium (Nexium) 40 mg PO DAILY 90 caps 2RF K21.9 UPPER ENDOSCOPY Findings: Larynx:normal Esophagus: GE junction at 35 cm, diaphragm hiatus at 35 cm, mild esophagitis at GEJ, bx taken from here and distal/proximal esophagus, balloon dilation to 20 mm at UES and LES, no tears seen Stomach: mild gastritis . Biopsies were obtained. Grade 2 flap valve on retroflexed examination of the cardia. Duodenum: mild bulbar duodenitis, bx taken Intervention: Biopsies as noted above, balloon dilation Impression/Findings: gastritis duodenitis esophagitis PLAN: cont with PPI GERD precautions r/s colonoscopy PATHOLOGY Diagnosis A. Duodenum, biopsy: Duodenal mucosa within normal limits; preserved villous architecture and no increased intraepithelial lymphocytes. B. Stomach, biopsy: Gastric antral and body mucosa with mild chronic inactive gastritis; negative for Helicobacter pylori, intestinal metaplasia and dysplasia. C. Gastroesophageal junction, biopsy: Squamocolumnar junctional mucosa with moderate chronic active inflammation; negative for intestinal metaplasia and dysplasia. D. Esophagus, distal, biopsy: Squamous mucosa within normal limits; negative for inflammation (including intraepithelial eosinophils), fungal organisms, intestinal metaplasia and dysplasia. E. Esophagus, proximal, biopsy: Squamous mucosa within normal limits; negative for inflammation (including intraepithelial eosinophils), fungal organisms, intestinal metaplasia and dysplasia TODAY'S VISIT: Patient is here today for follow-up and to discuss upper endoscopy results. Patient denies any ill effects from anesthesia or procedure itself. Patient reports that colonoscopy was canceled the patient was in too much pain. Patient had eye surgery and had bilateral eye discomfort afterwards. However upper endoscopy went well and patient had no issues. Chronic active inflammation without dysplasia or H pylori seen in the stomach and at that GI junction. Patient is taking Nexium every day. She is taking famotidine at bedtime. Patient reports that currently she is not having any symptoms except for occas ional acid reflux. Patient is trying to avoid dietary triggers as much as possible. Patient denies any nausea or vomiting. Patient denies dyspepsia, dysphagia or odynophagia. Patient reports that she is moving her bowels. Patient is taking senna daily. Patient denies melena, hematochezia, unintentional weight loss or ribbon like stools. [facility] Medical History History of Helicobacter pylori infection Encounter for colorectal cancer screening using Cologuard test Depression Peripheral neuropathy Asthma Back pain Arthritis Hypercholesterolemia Diabetes mellitus Surgical History History of esophagogastroduodenoscopy (EGD) Hx of cholecystectomy (~2021) H/O tubal ligation Family History Father Lung cancer Prostate cancer Emphysema lung Social History Household Members: Family and Children Housing: Apartment Do you presently have visiting nurse or other home services: No Alcohol intake: never Patient Tobacco Use Status: Never used Tobacco e-Cigarette/Vaping Use: Never Used Second Hand Smoke Exposure: Yes service: No Current occupational status: retired Current occupation: rt handed Review of Systems Const Denies weight gain and Denies weight loss ENT Reports no additional complaints, Denies dysphagia and Denies odynophagia Card Reports no additional complaints Resp Reports no additional complaints GI Denies abdominal pain, Denies belching, Denies melena, Denies bloating, Denies change in bowel habits, Reports constipation, Denies dysphagia, Denies excessive flatus, Denies dyspepsia, Reports heartburn (Occasional), Denies diarrhea, Denies loose stools, Denies nausea, Denies odynophagia and Denies vomiting Reports no additional complaints Musc Reports no additional complaints Neuro Reports no additional complaints Psych Reports no additional complaints Endo Reports no additional complaints Physical Exam Const General: healthy appearing, no acute distress and well developed Nutritional Appearance: well nourished Orientation/consciousness: patient oriented x3 Resp Effort & Inspection: normal respiratory effort, able to speak in complete sentences, no tracheal deviation and symmetric chest movement Auscultation: clear to auscultation bilaterally Cardio Rate: regular rate GI Inspection: Yes normal to inspection and No distended Palpation (GI): Soft to palpation, not firm, nontender and No hepatosplenomegaly present Auscultation: normal bowel sounds General: Yes no CVA tenderness Back/Spine/Pelvis Back: no CVA tenderness Skin General skin exam: elasticity normal, turgor normal and dry skin Neuro General: patient oriented x3 Psych Appearance: grossly normal Mental Status: mental status grossly normal Results Reviewed Results Reviewed: Laboratory Tests 04/07/25 15:15 H. pylori Breath Test Negative Assessment & Plan Assessment & Plan (1) History of Helicobacter pylori infection: Code(s): Z86.19 - Personal history of other infectious and parasitic diseases Category: Medical (2) Gastroesophageal reflux disease: Code(s): K21.9 - Gastro-esophageal reflux disease without esophagitis Qualifiers: Esophagitis presence: without esophagitis Qualified Code(s): K21.9 - Gastro-esophageal reflux disease without esophagitis (3) Dysphagia: Code(s): R13.10 - Dysphagia, unspecified Qualifiers: Dysphagia type: oropharyngeal phase Qualified Code(s): R13.12 - Dysphagia, oropharyngeal phase (4) Postprandial epigastric pain: Code(s): R10.13 - Epigastric pain (5) Postprandial abdominal bloating: Code(s): R14.0 - Abdominal distension (gaseous) Plan Patient will be scheduled for colonoscopy. Endoscopy showed chronic active inflammation at the GE junction and stomach without H pylori. Patient had breath test that was also negative for H pylori couple months ago. Patient will continue taking Nexium and famotidine. Continue avoiding dietary triggers in late night snacking. Staying upright for minimal 3 hours after meals discussed with patient. Patient will follow-up in the office in 6 months. She will call us if she will have any GI concerning symptoms. Patient is agreeable to this plan and verbalizes understanding of instructions. She was given the opportunity to ask questions all questions answered. Thank you for allowing me to participate in her care Coding Level of Care Code Est Pt Level 4 (88588) Add On Problem Visit Only Diagnoses History of Helicobacter pylori infection Z86.19 Gastroesophageal reflux disease without esophagitis K21.9 Esophagitis presence: without esophagitis Oropharyngeal dysphagia R13.12 Dysphagia type: oropharyngeal phase Postprandial epigastric pain R10.13 Postprandial abdominal bloating R14.0 Time Spent (min) 40 Comment 25 minutes spent with patient and additional 15 minutes spent reviewing her records
[2025-07-07 13:08] VITALS: BP 148/70; PULSE 104; O2SAT 100; BMI 20.9
--- OUTSIDE RECORDS SUMMARY | 2025-07-07 20:10 | XMS_ITS | Encounter Summary ---
Author Organization [employer] Address [address] [facility] 7t [place] [address] Care Team Providers Care High School Director Name Role Phone Yolanda Priest MD Primary Care Provider + King Orlando PharmD Unavailable Reason for Visit * Reason Comments Med Refill Encounter Details Date Type Department Care Team (Late st Contact Info) Description 05/07/2023 Refill [facility] ADULT DENTAL [address] [place], [place] [phone] Virgil Santoyo, STEVEN [address] [place], [place] [phone] Social History Tobacco Use Types Packs/Day Years [...] Care Team (Late st Contact Info) Description 07/16/2025 3:00 PM EST Telemedicine [facility] MEDICINE [address] [place] [address] King Orlando, PharmD [address] [place] [address] 10/18/2025 2:00 PM EDT Office Visit [facility] OPTOMETRY [address] [place] [address] Reyna Jara, OD [address] [place] [address] documented as of this encounter Visit Diagnoses Not on filedocumented in this encounter Additional Health Concerns Assessment Noted Time PHQ-9 Depression Total Score: 7 11/09/19 23 10:16 AM EDT documented as of this encounter Care Teams High School Director Relationship Specialty Start Date End Date Yolanda Priest MD [address] [place] [address] PCP - General Family Medicine 01/10/17 King Orlando, DouglasD [address] [place] [phone] Pharmacist Internal Medicine 10/02/23 documented as of this encounter
--- OUTSIDE RECORDS SUMMARY | 2025-07-07 20:10 | XMS_ITS | Encounter Summary ---
Author Organization [employer] Address [address] [facility] 7t [place] [address] Care Team Providers Care Executive Assistant To General Counsel Name Role Phone Yolanda Priest MD Primary Care Provider + King Orlando PharmD Unavailable [phone] Reason for Visit * Reason Onset Date Comments Call Back 03/01/2023 Encounter Details Date Type Department Care Team ([facility] st Contact Info) Description 03/01/2023 Telephone [facility] MEDICINE [address] [place], [place] [phone] Yolanda Priest MD [address] [place], [place] [phone] Call Back Social History Tobacco Use Types [...] form for a physical that is needed, caption writer offer to transferover but she prefers to speak with a nurse but at the end I transfer her over but she still wanted me to send message. Please contact pt at [phone] documented in this encounter Plan of Treatment Upcoming Encounters Date Type Department Care Team (Late st Contact Info) Description 07/16/2025 3:00 PM EST Telemedicine [facility] MEDICINE [address] [place] [address] King Orlando, PharmD [address] [place] [address] 10/18/2025 2:00 PM EDT Office Visit [facility] OPTOMETRY [address] [place] [address] Reyna Jara, OD [address] [place] [address] documented as of this encounter Visit Diagnoses Not on filedocumented in this encounter Additional Health Concerns Assessment Noted Time PHQ-9 Depression Total Score: 7 11/09/19 23 10:16 AM EDT documented as of this encounter Care Teams Executive Assistant To General Counsel Relationship Specialty Start Date End Date Yolanda Priest MD [address] [place] [phone] PCP - General Family Medicine 01/10/17 King Orlando, PharmD [address] [place] [phone] Pharmacist Internal Medicine 10/02/23 documented as of this encounter
--- OUTSIDE RECORDS SUMMARY | 2025-07-07 20:11 | XMS_ITS | Encounter Summary ---
Author Organization [employer] Address [address] [facility] 7t [place] [address] Care Team Providers Care Electrical Discharge Machine Operator Name Role Phone Yolanda Priest MD Primary Care Provider + King Orlando PharmD Unavailable [phone] Encounter Details Date Type Department Care Team (Late Contact Info) Description 02/22/2023 Orders Only [facility] MEDICINE [address] [place] [address] [phone] Alice Jennings LPN Social History Tobacco Use [...] Info) Description 07/16/2025 3:00 PM EST Telemedicine [facility] MEDICINE [address] [place], [place] [phone] King Orlando, PharmD [address] [place], [place] [phone] 10/18/2025 2:00 PM EDT Office Visit [facility] OPTOMETRY [address] [place] [phone] Marek, Reyna, OD [address] [place] [address] documented as of this encounter Visit Diagnoses Not on filedocumented in this encounter Additional Health Concerns Assessment Noted Time PHQ-9 Depression Total Score: 7 11/09/19 23 10:16 AM EDT documented as of this encounter Care Teams Electrical Discharge Machine Operator Relationship Specialty Start Date End Date Yolanda Priest MD [address] [place] [address] [phone] PCP - General Family Medicine 01/10/17 King Orlando, DouglasD [address] [place] [address] [phone] Pharmacist Internal Medicine 10/02/23 documented as of this encounter
--- OUTSIDE RECORDS SUMMARY | 2025-07-07 20:11 | XMS_ITS | Encounter Summary ---
Author Organization [employer] Address [address] [facility] 7t [place] [address] Care Team Providers Care Leather Whitener Name Role Phone Yolanda Priest MD Primary Care Provider + King Orlando PharmD Unavailable [phone] Encounter Details Date Type Department Care Team (Latest Contact Info) Description 07/02/2025 Travel Social History Tobacco Use Types Packs/Day Years [...] Info) Description 07/16/2025 3:00 PM EST Telemedicine [facility] MEDICINE [address] [place] [address] King Orlando, DouglasD [address] [place] [address] 10/18/2025 2:00 PM EDT Office Visit [facility] OPTOMETRY [address] [place] [address] Marek, Reyna, OD [address] [place] [address] documented as of this encounter Goals Goal Patient Goal Type Associated Problems Recent Progress Patient-Stated? Author Blood Pressure < 140/90 Blood Pressure 110/50(2024 10:09 AM EDT) No King Orlando PharmJanelle Hemoglobin A1c < 7 Result Component 8.2( 10:16 AM EDT) No King Orlando, PharmD Help patients manage their type 2 diabetes Care Plan Help patients manage their type 2 diabetes No King Orlando, PharmD Weekly blood pressure task Care Plan Weekly blood pressure task No King Orlando PharmD Help patients manage their type 2 diabetes Care Plan Help patients manage their type 2 diabetes No King Orlando PharmD Patient has chronic kidney disease Care Plan Patient has chronic kidney disease No King Orlando PharmD Weekly blood pressure task Care Plan Weekly blood pressure task No King Orlando PharmJanelle Patient has chronic kidney disease Care Plan Patient has chronic kidney disease No King Orlando PharmJanelle Weekly blood pressure task Care Plan Weekly blood pressure task No King Orlando PharmD Weekly blood pressure task Care Plan Weekly blood pressure task No King Orlando PharmJanelle Patient has chronic kidney disease Care Plan Patient has chronic kidney disease No King Orlando PharmD Patient has chronic kidney disease Care Plan Patient has chronic kidney disease No King Orlando PharmD documented as of this encounter Visit Diagnoses Not on filedocumented in this encounter Additional Health Concerns Active Problems Noted Date Diagnosed Date Help patients manage their type 2 diabetes 06/29 Weekly blood pressure task 06/29/2025 Help patients manage their type 2 diabetes 06/29 Patient has chronic kidney disease 06/29/2025 Weekly blood pressure task 06/29/2025 Patient has chronic kidney disease 06/29/2025 Weekly blood pressure task 06/30/2025 Weekly blood pressure task 06/30/2025 Patient has chronic kidney disease 06/30/2025 Patient has chronic kidney disease 06/30/2025 Assessment Noted Time PHQ-9 Depression Total Score: 3 03/15/20 25 5:02 PM EDT documented as of this encounter Care Teams Leather Whitener Relationship Specialty Start Date End Date Yolanda Priest MD [address] [place] [address] PCP - General Family Medicine 01/10/17 King Orlando PharmD [address] [place] [address] Pharmacist Internal Medicine 10/02/23 documented as of this encounter
--- OUTSIDE RECORDS SUMMARY | 2025-07-07 20:11 | XMS_ITS | Encounter Summary ---
Author Organization [employer] Address [address] [facility] 7t [place] [address] Care Team Providers Care Screen Printing Press Operator Name Role Phone Yolanda Priest MD Primary Care Provider + King Orlando PharmD Unavailable [phone] Encounter Details Date Type Department Care Team (Late st Contact Info) Description 11/27/2022 Orders Only [facility] MEDICINE [address] [place], [place] [phone] Yolanda Priest MD [address] [place], [place] [phone] Uncontrolled type 2 diabetes mellitus with hyperglycemia [...] Info) Description 07/16/2025 3:00 PM EST Telemedicine [facility] MEDICINE [address] [place] [address] King Orlando, Aditi [address] [place] [address] 10/18/2025 2:00 PM EDT Office Visit [facility] OPTOMETRY [address] [place] [address] Reyna Jara, OD [address] [place] [address] documented as of this encounter Visit Diagnoses Diagnosis Uncontrolled type 2 diabetes mellitus with hyperglycemia (HCC)- Primary documented in this encounter Additional Health Concerns Assessment Noted Time PHQ-9 Depression Total Score: 7 11/09/19 23 10:16 AM EDT documented as of this encounter Care Teams Screen Printing Press Operator Relationship Specialty Start Date End Date Yolanda Priest MD [address] [place] [address] PCP - General Family Medicine 01/10/17 King Orlando, Aditi [address] [place] [address] [phone] Pharmacist Internal Medicine 10/02/23 documented as of this encounter
--- OUTSIDE RECORDS SUMMARY | 2025-07-07 20:11 | XMS_ITS | Encounter Summary ---
Author Organization [employer] Address [address] [facility] 7t [place] [address] Care Team Providers Care Transportation Planning Engineer Name Role Phone Yolanda Priest MD Primary Care Provider + King Orlando PharmD Unavailable [phone] Reason for Visit * Reason Onset Date Comments Prior Authorization 09/01/2024 Encounter Details Date Type Department Care Team (Late st Contact Info) Description 09/01/2024 Telephone [facility] MEDICINE [address] [place], [place] [phone] Yolanda Priest MD [address] [place], [place] [phone] Prior Authorization Social History Tobacco Use Types [...] Patient picked up Mitch 3 reader from [facility] pharmacy 08/14/2024. * Telephone Encounter - Dez Porter - 09/01/2024 9:12 AM EST PA request for Continuous Glucose Sensor (FreeStyle Mitch 3 Plus Sensor) [facility] documented in this encounter Plan of Treatment Upcoming Encounters Date Type Department Care Team (Late st Contact Info) Description 07/16/2025 3:00 PM EST Telemedicine [facility] MEDICINE [address] [place] [address] King Orlando PharmD [address] [place] [address] 10/18/2025 2:00 PM EDT Office Visit [facility] OPTOMETRY [address] [place] [address] Marek, Reyna, OD [address] [place] [address] documented as of this encounter Goals Goal Patient Goal Type Associated Problems Recent Progress Patient-Stated? Author Blood Pressure < 140/90 Blood Pressure 110/50(2024 10:09 AM EDT) No King Orlando PharmD Hemoglobin A1c < 7 Result Component 8.2( 10:16 AM EDT) No King Orlando PharmD documented as of this encounter Visit Diagnoses Not on filedocumented in this encounter Additional Health Concerns Assessment Noted Time PHQ-9 Depression Total Score: 13 024 1:39 PM EDT documented as of this encounter Care Teams Transportation Planning Engineer Relationship Specialty Start Date End Date Yolanda Priest MD [address] [place], [place] [phone] PCP - General Family Medicine 01/10/17 King Orlando PharmD [address] [place] [address] [phone] Pharmacist Internal Medicine 10/02/23 documented as of this encounter
--- OUTSIDE RECORDS SUMMARY | 2025-07-07 20:11 | XMS_ITS | Encounter Summary ---
Author Organization [employer] Address [address] [facility] 7t [place] [address] Care Team Providers Care Crane Man Name Role Phone Yolanda Priest MD Primary Care Provider + King Orlando PharmD Unavailable [phone] Reason for Visit * Reason Onset Date Comments Med Refill 09/01/2024 Encounter Details Date Type Department Care Team (Late st Contact Info) Description 09/01/[address] [facility] MEDICINE [address] [place], [place] [phone] Yolanda Priest MD [address] [place], [place] [phone] Med Refill Social History Tobacco Use Types [...] with others, in a hotel, in a residential, living outside on the street, on a [...] 09/01/2024 9:33 AM EST Medication sent to [facility] Pharmacy 07/17/24 #30 with 11 refills. * Telephone Encounter - Dez Porter - 09/01/2024 8:55 AM EST TC from pt requesting medication refill. Medications needing refill : Continuous Glucose Sensor (FreeStyle Mitch 3 Plus Sensor) [facility] glipiZIDE XL (Glucotrol XL) 10 MG 24 hr tablet To be sent to: [facility] - [place], [place] - [address] documented in this encounter Plan of Treatment Upcoming Encounters Date Type Department Care Team (Late st Contact Info) Description 07/16/2025 3:[address] [facility] MEDICINE [address] [place] [address] King Orlando PharmD [address] [place] [address] 10/18/2025 2:00 PM EDT Office Visit [facility] OPTOMETRY [address] [place] [address] Marek, Reyna, OD [address] [place] [address] documented as of this encounter Goals Goal [...] documented as of this encounter Care Teams Crane Man Relationship Specialty Start Date End Date Yolanda Priest MD [address] [place] [phone] PCP - General Family Medicine 01/10/17 King Orlando PharmD [address] [place] [address] [phone] Pharmacist Internal Medicine 10/02/23 documented as of this encounter
--- OUTSIDE RECORDS SUMMARY | 2025-07-07 20:11 | XMS_ITS | Clinical Summary ---
Author Organization [facility] Address [address] [place] [address] Care Team Providers Care Highway Inspector Name Role Phone Yolanda Priest MD Primary Care Provider + King Orlando PharmD Unavailable [phone] Allergies No known active allergies Medications melatonin [...] mg by mouth at bedtime. 2023 Active glipiZIDE XL (Glucotrol XL) 10 MG 24 hr tabletIndications:Type 2 diabetes mellitus with chronic kidney disease, with long-term current use of insulin, unspecified CKD stage (HCC) Take 1 tablet (10 mg) by mouth Once per day. Do not crush, chew, or split. 30 tablet 11 07/17 Active Continuous Glucose Welding Equipment Repairer (FreeStyle Mitch 3 [place]) deviceIndications:Type 2 diabetes mellitus with chronic kidney [...] by mouth daily 90 tablet 3 025 11:34 AM EST 2024 Active SITagliptin (Januvia) 100 MG tabletIndications:Type [...] and with evening meal. 60 tablet 11 11:34 AM EST 2024 Active ergocalciferol (Vitamin D2) 1.25 MG (48547 UT) capsuleIndications:Pur e hypercholesterolemia TAKE 1 CAPSULE BY MOUTH ONCE A WEEK 12 capsule 1 2024 Active rosuvastatin (Crestor) 40 MG tabletIndications:Unco ntrolled type 2 diabetes mellitus with hyperglycemia (HCC) TAKE 1 TABLET BY MOUTH EVERY DAY 90 tablet 3 025 11:34 AM EST 2024 Active lisinopril 10 MG tabletIndications:Esse ntial hypertension TAKE 1 TABLET BY MOUTH EVERY DAY 90 tablet 3 025 11:34 AM EST 2024 Active ezetimibe (Zetia) 10 MG tabletIndications:Type 2 diabetes mellitus with chronic kidney disease, with long-term current use of insulin, unspecified CKD stage (HCC) TAKE 1 TABLET BY MOUTH ONCE DAILY 90 tablet 1 11:34 AM EST 2024 Active Continuous Glucose Sensor (FreeStyle Mitch 3 Plus Sensor) miscIndications:Type 2 diabetes mellitus with chronic kidney disease, with long-term current use of insulin, unspecified CKD stage (HCC) Apply 1 Device topically every 15 days. 2 each 11:34 AM EST 2024 Active glucose 4 g chewable tabletIndications:Type 2 diabetes mellitus with chronic kidney disease, with long-term current use of insulin, unspecified CKD stage (HCC) Chew 4 tablets (16 g) if needed for low blood sugar. 30 tablet 11 03/05 Active esomeprazole (NexIUM) [address] capsule Take 40 mg by mouth in the morning. 2024 Active ketorolac (Acular) 0.5 % ophthalmic solution 2024 Active insulin aspart (NovoLOG FLEXPEN) 100 UNIT/ML penIndications:Type 2 diabetes mellitus with chronic kidney disease, with long-term current use of insulin, unspecified CKD stage (HCC) Inject 4 units three times daily before meals 15 mL 3 2024 Active insulin pen needle (Pentips) 32G x 4 mm miscIndications:Uncont rolled type 2 diabetes mellitus with hyperglycemia (HCC) Use four times daily with insulin as directed 100 each 5 11:34 AM EST 2024 Active brimonidine (AlphaGAN) 0.2 % ophthalmic solution Administer 1 drop into the right eye 3 times daily. 2024 Active insulin degludec (Tresiba FlexTouch) 100 UNIT/ML injectionIndications:T ype 2 diabetes mellitus with chronic kidney disease, with long-term current use of insulin, unspecified CKD stage (HCC) INJECT 12 UNITS SUBCUTANEOUSLY ONCE DAILY 15 mL 3 2:27 PM EST 2024 Active insulin degludec (Tresiba FlexTouch) 100 UNIT/ML injectionIndications:U ncontrolled type 2 diabetes mellitus with hyperglycemia (HCC) INJECT 8 UNITS SUBCUTANEOUSLY ONCE DAILY 15 mL 3 07/05 Discontinued( Reorder (will not trigger notification to Pharmacy)) Active Problems Problem Noted Date Diagnosed Date Preoperative general physical examination 2024 Assessment & Plan (05/26/2025 1:29 PM EDT): 64 yo patient with multiple medical conditions here for preop evaluation. Most of her medical conditions are stable enough so that she can safely undergo planned procedure. She is a LOW risk patient. She's undergoing a LOW risk procedure. The risk of CV complication according to RCRI is 5% due to history CVA on 2021. At this time SHE IS ON OPTIMAL CONDITION for planned procedure. -Meds adjusted for the day of surgery: She will only take lisinopril and famotidine on the day of the surgery with a sip of water. It is safe for her to hold ASA 1w prio to procedure (last dose this morning) -Call back TOBI should he develops fever, cough, SOB, CP, UTI sxs or any other acute issue Type 2 diabetes mellitus wit h chronic kidney disease, with long-term current use of insulin 05/26/2025 Assessment & Plan (05/26/2025 1:30 PM EDT): Patient has microalbuminuria, her GFR is normal, she will continue to FU with me and CDTM program. Weakness 03/15/2025 Assessment & Plan (03/15/2025 5:15 [...] an another apartment since 2022. Will have personal care aid/[facility] program to follow-up with her Assessment & Plan (04/20/2023 2:19 PM EDT): Son and family will move out soon and they have leasing contract. Refer to [facility] to help her with rent applications and [...] with hyper glycemia 06/25/2022 Assessment & Plan (05/26/2025 1:27 PM EDT): A1c is improving. She will increase Tresiba to 25u/d, hold for hypoglycemia and call PRN Continue Novolog Tid ac meals + Synjardy, glipizide and Januvia. She will hold both insulins + Januvia + Glipizide on the day of the surgery and Synjardy 5d prior. She can restart all medications as usual the next day after procedure. FU w CDTM program next mo. Assessment & Plan (03/15/2025 5:11 PM EDT): [...] uncontrolled., pt will fu with endo at [facility] next week. pt to bring glucometer to pharmacy vs order new glucometer continue lantus 40 units + Humalog TID ac meals + po medications. FU with me in 3 months Assessment & Plan (11/08/2022 10:55 AM EDT): Uncontrolled. Increase lantus to 40 units, no change in other medications FU with me in 4 weeks. refer to functional manager and reminded pt to be complaint with appoitnments, call to rescheduled appointment if necessary Rash and nonspecific skin eruption 06/25/2022 Chronic [...] in partial remission 11/07/2018 Assessment & Plan (05/26/2025 1:17 PM EDT): DELMI-7 Total Score: 18 (05/26/2025 10:17 AM) She sees Dr Wright and is taking all her meds, feels well in general. She has hard time sometimes with new events, tight now she's somewhat anxious about upcoming surgery. Assessment & Plan (03/15/2025 5:14 PM EDT): [...] Encounters Date Type Department Care Team Description 07/02/2025 Travel 05/26/2025 9:30 AM EDT Office Visit [facility] [address] [place] [phone] Yolanda Priest MD Preoperative general physical examination (Primary Dx); Uncontrolled type 2 diabetes mellitus with hyperglycemia (HCC); Type 2 diabetes mellitus with chronic kidney disease, with long-term current use of insulin, unspecified CKD stage (HCC); Recurrent major depression in partial remission (CMS/HCC) 05/26/2025 Travel 05/25/[address] [address] Yolanda Priest MD CHART PREP 05/14/[address] [address] Yolanda Priest MD Pre Op 05/05/2025 3:30 PM EDT Telemedicine [address] [address] King Orlando, PharmD Type 2 diabetes mellitus with chronic kidney disease, with long-term current use of insulin, unspecified CKD stage (HCC) (Primary Dx); Uncontrolled type 2 diabetes mellitus with hyperglycemia (HCC) 05/03/2025 Orders Only GENERIC EXTERNAL DATA DEPARTMENT Provider, Generic External Data 04/09/2025 Orders Only [facility] [address] [place] [phone] ProviderLuzmaria MD 04/07/2025 Orders Only GENERIC EXTERNAL DATA DEPARTMENT Provider, Generic External Data 04/07/[address] [phone] King Orlando, PharmD from Last 3 Months Immunizations Immunization Administration [...] Sign Reading Time Taken Comments Blood Pressure 110/50 05/26/2025 10:09 AM EDT Pulse 94 05/26/2025 10:09 AM EDT Temperature 36 C (96.8 F) 05/26/2025 10:09 AM EDT Respiratory Rate 20 05/26/2025 10:09 AM EDT Oxygen Saturation 98% 05/26/2025 10:09 AM EDT Inhaled Oxygen Concentration - - Weight 55.3 kg (122 lb) 05/26/2025 10:09 AM EDT Height 162.6 cm (5' 4 ) 05/26/2025 10:09 AM EDT Body Mass Index 20.94 05/26/2025 10:09 AM EDT Plan of Treatment Upcoming Encounters Date Type Department Care Team (Late st Contact Info) Description 07/16/2025 3:00 PM EST Telemedicine [facility] [address] [place] [address] King Orlando, PharmD [address] [place] [address] 10/18/2025 2:00 PM EDT Office Visit [facility] [address] [place] [address] Reyna Jara, OD [address] [place] [address] Health Maintenance Due Date Last Done Comments CT Colonography 1960 Colonoscopy 1960 FIT 1960 Sigmoidoscopy 1960 HPV/Cotest 11/17/1989 FOBT 03/05/2024 03/05/2023 Dental Oral Exam 05/22/2024 11/20/2023 Dental Prophylaxis 06/13/2024 12/11/2023 Dental X-Ray: Bitewings 11/20/2024 11/20/2023 COVID-19 Vaccine ( season) 2025 06/29/2022, 12/01/2021, 12/07/2020, Additional history exists Influenza Vaccine (#1) 2025 , 04/22/2023, 04/26/2022, Additional history exists Diabetes: Hemoglobin A1C 08/26/2025 025, 03/05/2025, 10/12/2024, Additional history exists Lipid Panel 11/02/2025 11/02/2024, 01/27, 11/29/2023, Additional history exists Mammogram 11/24/2025 11/24/2024, 10/28, 11/14/2022, Additional history exists Colorectal Cancer Screening 03/05/2026 FIT DNA/Cologuard 03/05/2026 03/05/2023 SDOH Screening 03/05/2026 03/05/2025 Alcohol/Substance Use Screening 03/15/2026 03/15/2025 Depression Screening 03/15/2026 03/15/2025, 03/15/20 Diabetes: Foot Exam 03/15/2026 03/15/2025, 03/15/2025, 03/15/2025, Additional history exists Eye Exam 04/08/2026 04/08/2025, 09/27, 10/15/2024, Additional history exists Tobacco Screening 05/26/2026 05/26/2025 Dental X-Ray: Full Mouth 11/20/2026 11/20/2023 Cervical [...] 8.2( 10:16 AM EDT) No King Orlando PharmJanelle Help patients manage their type 2 diabetes Care Plan Help patients manage their type 2 diabetes No King Orlando PharmJanelle Weekly blood pressure task Care Plan Weekly blood pressure task No King Orlando, PharmD Help patients manage their type 2 diabetes Care Plan Help patients manage their type 2 diabetes No King Orlando PharmJanelle Patient has chronic kidney disease Care Plan Patient has chronic kidney disease No King Orlando, PharmD Weekly blood pressure task Care Plan Weekly blood pressure task No King Orlando PharmD Patient has chronic kidney disease Care Plan Patient has chronic kidney disease No King Orlando PharmJanelle Weekly blood pressure task Care Plan Weekly blood pressure task No King Orlando, PharmD Weekly blood pressure task Care Plan Weekly blood pressure task No King Orlando, PharmD Patient has chronic kidney disease Care Plan Patient has chronic kidney disease No King Orlando PharmD Patient has chronic kidney disease Care Plan Patient has chronic kidney disease No King Orlando PharmJanelle Procedures Procedure Name Priority Date/Time Associated Diagnosis Comments POCT GLYCATED HEMOGLOBIN, TOTAL Routine 05/26/2025 10:16 AM EDT Uncontrolled type 2 diabetes mellitus with hyperglycemia (HCC) POCT GLUCOSE Routine 05/26/2025 10:10 AM EDT Uncontrolled type 2 diabetes mellitus with hyperglycemia (HCC) HEMATOXYLIN AND EOSIN STAIN Routine 05/03/2025 10:52 AM EDT GLUCOSE, WHOLE BLOOD Routine 05/03/2025 9:56 AM EDT HM DIABETES EYE EXAM Routine 04/08/2025 11:01 AM EDT HELICOBACTER PYLORI, UREA BREATH TEST Routine 04/07/2025 3:15 PM EDT BI MAMMOGRAM SCREENING TOMOSYNTHESIS BILATERAL Routine 11/24/2024 [...] Relevant to Health Maintenance Results * (ABNORMAL) POCT Hgb A1c (05/26/2025 10:16 AM EDT) Hemoglobin A1C 8.2(A) 4.0 - 5.7 % QC Media Lot # [id number] Lot# Expiration Date 3938, Blood 05/26/2025 10:1 6 AM EDT Yolanda Priest MD POINT OF CARE TEST ENTER /EDIT ORDERABLES Final Result * (ABNORMAL) POCT Glucose (05/26/2025 10:10 AM EDT) Glucose Blood, POC 262(A) 60 - 200 mg/dL QC Media Lot # [id number] Lot# Expiration Date 3418,777 Blood Capillary blood specimen / Unknown 05/26/2025 10:10 AM EDT Yolanda Priest MD POINT OF CARE TEST ENTER /EDIT ORDERABLES Final Result * Hematoxylin and Eosin Stain (05/03/2025 10:52 AM EDT) 05/03/2025 10:5 2 AM EDT 05/03/2025 12:42 PM EDT Narrative [facility] - 05/04/2025 2:41 PM EDT ----- ------- Name: Alice Amin Age/Sex: 64/F : 1960 Unit#: [id number] Attend Dr: Filiberto Frederick MD Re05/03/25 Status: [facility] Location: [facility] Disch: ----- ------- SPEC : [id number] RECD: 05/03/25-1241 STATUS: SADIE HARVEY NUM: [id number] ANTONIETA: 05/03/25 [facility] DR: Filiberto Frederick MD ENTERED: 05/03/258 SP TYPE: Surgical OTHR DR: Yolanda Priest MD ORDERED: HE Stain/15, Gross Micro L4/5, IHC, Special st. 2/, H. pylori, AB/PAS/3 Diagnosis A. Duodenum, biopsy: Duodenal mucosa within normal limits; preserved villous architecture and no increased intraepithelial lymphocytes. B. Stomach, biopsy: Gastric antral and body mucosa with mild chronic inactive gastritis; negative for Helicobacter pylori, intestinal metaplasia and dysplasia. C. Gastroesophageal junction, biopsy: Squamocolumnar junctional mucosa with moderate chronic active inflammation; negative for intestinal metaplasia and dysplasia. D. Esophagus, distal, biopsy: Squamous mucosa within normal limits; negative for inflammation (including intraepithelial eosinophils), fungal organisms, intestinal metaplasia and dysplasia. E. Esophagus, proximal, biopsy: Squamous mucosa within normal limits; negative for inflammation (including intraepithelial eosinophils), fungal organisms, intestinal metaplasia and dysplasia. Clinical History Pre-Op Dx: GERD, dysphagia Post-Op Dx: Mild esophagitis, duodenitis, gastritis Microscopic Description A-D. Microscopic sections examined. No metaplastic changes are seen, supported by AB/PAS stains (A-C); no Helicobacter organisms are seen, supported by H. pylori immunostain (B). Material Received A. Duodenum bx's B. Stomach bx's C. GE junction bx's D. Distal esophagus bx's E. Proximal esophagus bx's Gross Description Received in 5 parts. A. Received in formalin labeled duodenum biopsy are 2 fragments of wade-white soft tissue measuring 0.2 and 0.4 cm in greatest dimension which are wrapped in lens paper and entirely submitted for microscopic examination, 2 pieces in cassette A. CONTINUED ON NEXT PAGE ----- ------- Name: Alice Amin Age/Sex: 64/F : 1960 Unit#: [id number] Attend Dr: Filiberto Frederick MD Re05/03/25 Status: [facility] Location: [facility] Disch: ----- ------- SPEC : [id number] RECD: 05/03/25 STATUS: BETTEJaime HARVEY NUM: [id number] ANTONIETA: 05/03/25 [facility] DR: Filiberto Frederick MD ENTERED: 05/03/25 SP TYPE: Surgical OTHR DR: Yolanda Priest MD ORDERED: HE Stain/15, Gross Micro L4/5, IHC, Special st. 2/3, H. pylori, AB/PAS/3 Gross Description (Continued) B. Received in formalin labeled stomach biopsies are 2 fragments of wade-white soft tissue measuring 0.3 and 0.5 cm in greatest dimension which are wrapped in lens paper and entirely submitted for microscopic examination, 2 pieces in cassette B. C. Received in formalin labeled EG junction biopsies are 2 fragments of translucent, white soft tissue measuring 0.3 and 0.6 cm in greatest dimension which are wrapped in lens paper and entirely submitted for microscopic examination, 2 pieces in cassette C. D. Received in formalin labeled distal esophagus biopsy are 3 fragments of translucent, white soft tissue measuring 0.2-0.3 cm in greatest dimension which are wrapped in lens paper and entirely submitted for microscopic examination, 3 pieces in cassette D. E. Received in formalin labeled proximal esophagus biopsy is a fragment of translucent, white soft tissue measuring 0.4 cm in greatest dimension which is wrapped in lens paper and entirely submitted for microscopic examination, 1 piece in cassette E. ([facility]) Special stains ordered and performed: AB/PAS on A-C; immunostain for H. pylori on B. IHC S/NG Disclaimer NOTE: Unless otherwise stated, all tissue is formalin-fixed and paraffin-embedded. Some or all of the immunohistochemical tests reported herein may have been developed and their performance characteristics determined by [facility]. They have not been cleared or approved by the U.S. Food and Drug Administration (FDA). However, the FDA has determined that such clearance or approval is not necessary. This laboratory is certified under the Clinical Laboratory Improvement Amendments of 1988 (CLIA) as qualified to perform high complexity clinical laboratory testing. Copies To: Yolanda Priest MD [address] [id number] Filiberto Frederick MD [facility] [place] [place] [facility] [address] [place] [phone] CONTINUED ON NEXT PAGE ----- ------- Name: Carolyn WhitmoreAlice olvera Age/Sex: 64/F : 1960 Unit#: [id number] Attend Dr: Filiberto Frederick MD Re05/03/25 Status: [facility] Location: [facility] Disch: ----- ------- SPEC : [id number] RECD: 05/03/25 STATUS: SADIE HARVEY NUM: [id number] ANTONIETA: 05/03/[address]: Filiberto Frederick MD ENTERED: 05/03/25 SP TYPE: Surgical OTHR DR: Yolanda Priest MD ORDERED: HE Stain/15, Gross Micro L4/5, IHC, Special st. 2/3, H. pylori, AB/PAS/3 ----- ------- Signed (signature on file) Radha Blackmon MD 05/04/25 1441 ----- ------- END OF REPORT Generic External Data Provider LAB BLOOD ORDERAB LES Final Result Performing Organization Address [facility] Co de Phone Number [facility] [address] [place] [phone] * (ABNORMAL) Glucose, Whole Blood (05/03/2025 9:56 AM EDT) Glucose, Whole Blood 158(H) 60 - 115 mg/dL [facility] Comment:METER #: [id number] 05/03/2025 9:56 AM EDT 05/03/2025 10:00 AM EDT Generic External Data Provider LAB BLOOD ORDERAB LES Final Result Performing Organization Address [facility]/ZIP Co de Phone Number [facility] [address] [place] [address] [phone] * Hm Diabetes Eye Exam (04/08/2025 11:01 AM EDT) us Historical Provider HEALTH MAINTENANCE Final Result * Helicobacter pylori, Urea Breath Test (04/07/2025 3:15 PM EDT) H. pylori Breath Test Negative Negative [facility] Comment:Antimicrobials, prot on pump inhibitors and bismuthpreparations are known to suppress H. pylori. Ingestingthese medications within two weeks prior to performing thebreath test may produce negative test results. A positiveresult is still clinically valid. 04/07/2025 3:15 PM EDT 04/08/2025 10:21 AM EDT us Generic External Data Provider LAB BODY FLUIDS A ND STOOLS ORDERABLES Final Result [facility] [address] [place] [phone] * BI Mammogram Screening Tomosynthesis Bilateral (11/24/2024 1:45 PM EDT) Anatomical Region Laterality Modality Breast Bilateral Mammography 11/24/2024 1:45 PM EDT Narrative 11/29/2024 7:07 PM EDT [address] [place] [address] Mammography Report Signed Patient: Alice Amin MR#: [id number] : 1960 Acct:[id number] Age/Sex: 64 / F ADM Date: 11/24/24 Loc: HO.MAMMO Attending Dr: Yolanda Priest MD Ordering Physician: Yolanda Priest MD Results: 1Ne gative Date of Service: 11/24/24 Follow Up: 1 Year From Orig inal Mammogram Procedure(s): MM tomosynthesis screening BI Accession Number(s): [id number] cc: Yolanda Priest MD EXAMINATION: MM SCREENING [...] 11/29/24 1905 DD/ 1345 TD/TT: 11/24/24 1400 Signal Intelligence/Electronic Warfare: Procedure Note Donotuseinterpreter, Image - 11/29/20[facility] [address] [place] [address] Mammography Report Signed Patient: Alice Amin MMR#: [id number] : 1960Acct:[id number] Age/Sex: 64 / FADM Date: 11/24/24 Loc: HO.MAMMO Attending Dr: Yolanda Priest MD Ordering Physician: Yolanda Priest MDResults: 1Ne gative Date of Service: 11/24/24Follow Up: 1 Year From Orig inal Mammogram Procedure(s): MM tomosynthesis screening BI Accession Number(s): [id number] cc: Yolanda Priest MD EXAMINATION: MM SCREENING [...] 11/29/24 1905 DD/ 1345 TD/TT: 11/24/24 1400 Signal Intelligence/Electronic Warfare: Yolanda Priest MD IMG BI PROCEDURES Edited Result - Final * (ABNORMAL) Lipid Panel, Standard (11/02/2024 11:38 AM EDT) Triglycerides 136 <150 mg/dL [facility] Comment:Desirable Triglyceri de: less than 150 mg/dLBorderline High Triglyceride 150-199 mg/dLHigh Triglyceride: 200-499 mg/dLVery High Triglyceride: greater than or equal to 5OO mg/dL Cholesterol 197 <200 mg/dL [facility] Comment:Desirable Cholestero l: less than 200 mg/dLBorderline High Cholesterol: 200-239 mg/dLHigh Cholesterol: greater than 239 mg/dL LDL Cholesterol Calculated 118(H) <100 mg/dL [facility] Comment:Desirable LDL: less than 100 mg/dLNear Optimal/Above Optimal LDL: 110- 129 mg/dLBorderline High LDL: 130-159 mg/dLHigh LDL: 160-189 mg/dLVery High LDL: greater than or equal to 190 mg/dL HDL Cholesterol 52 >40 mg/dL [facility] Comment:Desirable HDL: grea ter than 40 mg/dL Note: This HDL assay may give artificially low results in patients with liver disease. 11/02/2024 11:3 8 AM EDT 11/02/2024 1:04 PM EDT Yolanda Priest MD LAB BLOOD ORDERABLES Fin al Result [facility] [address] [place] [phone] * Pap Smear (06/12/2024 10:17 AM EST) Swab 06/12/2024 10:1 7 AM EST 06/12/2024 1:50 PM EST Narrative [facility] - 07/01/2024 7:48 AM EST ----- ------- Name: Alice Amin Age/Sex: 63/F : 1960 Unit#: [id number] Attend Dr: Yolanda Priest MD Re06/12/24 Status: DEP [facility] Disch: ----- ------- SPEC : [id number] RECD: 06/12/24 STATUS: SADIE HARVEY NUM: [id number] ANTONIETA: 06/12/24-1017 [facility] DR: Yolanda Priest MD ENTERED: 06/12/24 SP TYPE: Pap Smr OTHR : ORDERED: Pap Smear Interpretation Satisfactory for evaluation. Negative for intraepithelial lesion or malignancy. Atrophic. Scant cellularity. HPV High Risk: Negative HPV Genotyping 16: Negative HPV Genotyping 18: Negative Clinical Information LMP: Unknown date Previous PAP test: Five years ago, Unknown findings Material Received ThinPrep-Cervical ----- ------- Signed (signature on file) KATRIN Head (ASCP) 07/01/24 0748 ----- ------- END OF REPORT us Yolanda Priest MD LAB CYTOLOGY ORDERABLES Final Result [facility] [address] [place] [phone] * Hepatitis Panel, General (05/23/2023 2:35 PM EDT) Hepatitis A IgM Nonreactive Nonreactive [facility] Comment:IgM antibodies to BROOKS V not detected; does not exclude earlyacute or recovered HAV infection. ~Hepatitis B Surface Antibody NONREACTIVE Nonreactive [facility] Comment:Nonreactive: < 8.00 mIU/mL Hepatitis B Core Antibody Nonreactive Nonreactive [facility] Hepatitis C Antibody Nonreactive Nonreactive [facility] Comment:Antibodies to HCV no t detected; does not exclude early acuteHCV infection. Hepatitis B Surface Ag Negative Negative [facility] Blood 05/23/2023 2:35 PM EDT 05/23/2023 4:01 PM EDT us Yolanda Priest MD LAB BLOOD ORDERABLES Fin al Result [facility] [address] [place] [address] [phone] * Cologuard?? colon cancer screening (03/05/2023 2:15 PM EDT) Cologuard Cancer Screen Negative [facility] (CLIA #:[id number]) Stool Anal structure / Unknown 03/05/2023 2:15 PM EDT us Yolanda Priest MD LAB MOLECULAR DIAGNOSTIC S ORDERABLES Final Result [email or web address] (CLIA #:[id number]) [place] [address], from Last 3 Months or Most Recently Relevant to Health Maintenance Additional Health Concerns Active Problems Noted Date [...] 06/30/2025 Patient has chronic kidney disease 06/30/2025 Insurance [employer] (O D-SNP) [facility] Care Teams Highway Inspector Relationship Specialty Start Date End Date Yolanda Priest MD [address] [place] [phone] PCP - General Family Medicine 01/10/17 King Orlando, PharmD [address] [place] [address] Pharmacist Internal Medicine 10/02/23
--- OUTSIDE RECORDS SUMMARY | 2025-07-07 20:12 | XMS_ITS | Encounter Summary ---
Author Organization [employer] Address [address] [facility] 7t [place] [address] Care Team Providers Care Tab Machine Operator Name Role Phone Yolanda Priest MD Primary Care Provider + King Orlando PharmD Unavailable [phone] Reason for Visit * Reason Onset Date Comments Pre Op 05/14/2025 Encounter Details Date Type Department Care Team ([facility] st Contact Info) Description 05/14/2025 Telephone [facility] [address] [place], [place] [phone] Yolanda Priest MD [address] [place], [place] [phone] Pre Op Social History Tobacco Use Types Packs/Day Years [...] encounter Miscellaneous Notes * Telephone Encounter - Pete Gates - 05/14/2025 10:22 AM EDT Pt and facility agreed to Pre-op on 05/26 with pcp. Pt aware that 05/19 follow up was canceled due to pre-op being needed. * Telephone Encounter - Jhon Coelho - 05/14/2025 9:38 AM EDT Date of Surgery: 06/03/25 Surgical procedure being done: Cataracts (right eye) Type of anesthesia: MAC Lab needed: No EKG: No Surgeon's name: Dr. Fausto Cabrera Facility name: [facility] Surgeon's office number: [phone] Surgeon's office fax number: [phone] Contact name: Faye documented in this encounter Plan of Treatment Upcoming Encounters Date Type Department Care Team (Late st Contact Info) Description 07/16/2025 3:00 PM EST Telemedicine [facility] [address] [place] [address] King Orlando, Aditi [address] [place] [address] 10/18/2025 2:00 PM EDT Office Visit [facility] OPTOMETRY [address] [place] [address] MarekReyna maravilla, OD [address] [place] [address] documented as of this encounter Goals Goal [...] documented as of this encounter Care Teams Tab Machine Operator Relationship Specialty Start Date End Date Yolanda Priest MD [address] [place] [address] PCP - General Family Medicine 01/10/17 King Orlando PharmD [address] [place], [place] [phone] Pharmacist Internal Medicine 10/02/23 documented as of this encounter
--- OUTSIDE RECORDS SUMMARY | 2025-07-07 20:13 | XMS_ITS | Encounter Summary ---
Author Organization [employer] Address [address] [facility] 7[address] [place] [address] Care Team Providers Care Roofer Gypsum Name Role Phone Yolanda Priest MD Primary Care Provider + King Orlando PharmD Unavailable [phone] Encounter Details Date Type Department Care Team (Late st Contact Info) Description 04/09/2025 Orders Only [facility] [address] [place], [place] [phone] ProviderLuzmaria MD Social History Tobacco Use Types [...] Info) Description 07/16/2025 3:00 PM EST Telemedicine [facility] MEDICINE [address] [place] [address] King Orlando PharmD [address] [place] [address] 10/18/2025 2:00 PM EDT Office Visit [facility] OPTOMETRY [address] [place] [address] Marek, Reyna, OD [address] [place] [address] documented as of this encounter Goals Goal Patient Goal Type Associated Problems Recent Progress Patient-Stated? Author Blood Pressure < 140/90 Blood Pressure 110/50(2024 10:09 AM EDT) No King Orlando, PharmJanelle Hemoglobin A1c < 7 Result Component 8.2( 10:16 AM EDT) No King Orlando PharmD documented as of this encounter Procedures Procedure Name Priority Date/Time Associated Diagnosis Comments HM DIABETES EYE EXAM Routine 04/08/2025 11:01 AM EDT documented in this encounter Results * Diabetes Eye Exam (04/08/2025 11:01 AM EDT) us Historical Provider HEALTH MAINTENANCE Final Result documented in this encounter Visit Diagnoses Not on filedocumented in this encounter Additional Health Concerns Assessment Noted Time PHQ-9 Depression Total Score: 3 03/15/20 25 5:02 PM EDT documented as of this encounter Care Teams Roofer Gypsum Relationship Specialty Start Date End Date Yolanda Priest MD [address] [place] [address] PCP - General Family Medicine 01/10/17 King Orlando, DouglasD [address] [place] [address] Pharmacist Internal Medicine 10/02/23 documented as of this encounter
--- OUTSIDE RECORDS SUMMARY | 2025-07-07 20:13 | XMS_ITS | Encounter Summary ---
Author Organization [employer] Address [address] [facility] 7t [place] [address] Care Team Providers Care Tile Edger Name Role Phone Yolanda Priest MD Primary Care Provider + King Orlando PharmD Unavailable [phone] Reason for Visit * Reason Onset Date Comments Appointment Request 10/26/2024 Encounter Details Date Type Department Care Team ([facility] st Contact Info) Description 10/26/2024 Telephone [facility] MED[facility]INE [address] [place], [place] [phone] Yolanda Priest MD [address] [place], [place] [phone] Appointment Request Social History Tobacco Use Types [...] 07/16/2025 3:00 PM EST Telemedicine [facility] MEDICINE [address] [place] [address] King Orlando, PharmD [address] [place] [address] 10/18/2025 2:00 PM EDT Office Visit [facility] OPTOMETRY [address] [place] [address] Reyna Jara, OD [address] [place] [address] documented as of this encounter Goals Goal [...] documented as of this encounter Care Teams Tile Edger Relationship Specialty Start Date End Date Yolanda Priest MD [address] [place] [address] PCP - General Family Medicine 01/10/17 King Orlando PharmD [address] [place] [address] Pharmacist Internal Medicine 10/02/23 documented as of this encounter
--- OUTSIDE RECORDS SUMMARY | 2025-07-07 20:14 | XMS_ITS | Encounter Summary ---
Author Organization [employer] Address [address] [facility] 7t [place] [address] Care Team Providers Care Pile Driving Superintendent Name Role Phone Yolanda Priest MD Primary Care Provider + King Orlando PharmD Unavailable [phone] Reason for Visit * Reason Comments Med Refill Encounter Details Date Type Department Care Team (Late st Contact Info) Description 02/06/2025 Refill [facility] [address] [place], [place] [phone] King Orlando, PharmD [address] [place], [place] [phone] Uncontrolled type 2 diabetes mellitus with hyperglycemia ([facility]) Social History Tobacco Use Types [...] Info) Description 07/16/2025 3:00 PM EST Telemedicine [facility] [address] [place] [address] King Orlando PharmD [address] [place] [address] 10/18/2025 2:00 PM EDT Office Visit [facility] OPTOMETRY [address] [place] [address] Marek, Reyna, OD [address] [place] [address] documented as of this encounter Goals Goal Patient Goal Type Associated Problems Recent Progress Patient-Stated? Author Blood Pressure < 140/90 Blood Pressure 110/50(2024 10:09 AM EDT) No King Orlando, PharmJanelle Hemoglobin A1c < 7 Result Component 8.2(10/29/202 5 10:16 AM EDT) No King Orlando, PharmD documented as of this encounter Visit Diagnoses Diagnosis Uncontrolled type 2 diabetes mellitus with hyperglycemia (HCC) documented in this encounter Additional Health Concerns Assessment Noted Time PHQ-9 Depression Total Score: 13 024 1:39 PM EDT documented as of this encounter Care Teams Pile Driving Superintendent Relationship Specialty Start Date End Date Yolanda Priest MD [address] [place] [address] PCP - General Family Medicine 01/10/17 King Orlando, PharmD [address] [place] [address] Pharmacist Internal Medicine 10/02/23 documented as of this encounter
--- OUTSIDE RECORDS SUMMARY | 2025-07-07 20:14 | XMS_ITS | Encounter Summary ---
Author Organization [employer] Address [address] [facility] 7t [place] [address] Care Team Providers Care Forging Press Lever Tender Name Role Phone Yolanda Priest MD Primary Care Provider + King Orlando PharmD Unavailable [phone] Reason for Visit * Reason Onset Date Comments Appointment Request 07/03/2024 Encounter Details Date Type Department Care Team ([facility] st Contact Info) Description 07/03/2024 Telephone [facility] MEDICINE [address] [place], [place] [phone] Yolnada Priest MD [address] [place], [place] [phone] Appointment Request Social History Tobacco Use Types [...] King from 06/24. Please contact pt at [phone]. (Belgian Speaker) documented in this encounter Plan of Treatment Upcoming Encounters Date Type Department Care Team (Late st Contact Info) Description 07/16/2025 3:00 PM EST Telemedicine [facility] MEDICINE [address] [place] [address] King Orlando, PharmD [address] [place] [address] 10/18/2025 2:00 PM EDT Office Visit [facility] OPTOMETRY [address] [place] [address] Reyna Jara, OD [address] [place] [address] documented as of this encounter Goals Goal [...] documented as of this encounter Care Teams Forging Press Lever Tender Relationship Specialty Start Date End Date Yolanda Priest MD [address] [place] [address] PCP - General Family Medicine 01/10/17 King Orlando PharmD [address] [place] [address] Pharmacist Internal Medicine 10/02/23 documented as of this encounter
--- OUTSIDE RECORDS SUMMARY | 2025-07-07 20:14 | XMS_ITS | Encounter Summary ---
Author Organization [employer] Address [address] [facility] [address] [place] [address] Care Team Providers Care Assayer Name Role Phone Yolanda Priest MD Primary Care Provider + King Orlando PharmD Unavailable [phone] Encounter Details Date Type Department Care Team (Late st Contact Info) Description 10/28/2024 Telephone [facility] OPTOMETRY [address] [place], [place] [phone] Marek, Reyna, OD [address] [place], [place] [phone] Social History Tobacco Use Types Packs/Day Years [...] with others, in a hotel, in a skilled nursing, living outside on the street, on a [...] MARY HAGEN Address[facility] [address] [place] [address] documented in this encounter Plan of Treatment Upcoming Encounters Date Type Department Care Team (Late st Contact Info) Description 07/16/2025 3:00 PM EST Telemedicine [facility] MEDICINE [address] [place], [place] [phone] King Orlando, PharmD [address] [place] [address] 10/18/2025 2:00 PM EDT Office Visit [facility] OPTOMETRY [address] [place], [place] [phone] Reyna Jara, OD [address] [place] [address] documented as of this encounter Goals Goal Patient Goal Type Associated Problems Recent Progress Patient-Stated? Author Blood Pressure < 140/90 Blood Pressure 110/50(2024 10:09 AM EDT) No King Orlando, Aditi Hemoglobin A1c < 7 Result Component 8.2( 10:16 AM EDT) No King Orlando PharmD documented as of this encounter Visit Diagnoses Not on filedocumented in this encounter Additional Health Concerns Assessment Noted Time PHQ-9 Depression Total Score: 13 024 1:39 PM EDT documented as of this encounter Care Teams Assayer Relationship Specialty Start Date End Date Yolanda Priest MD [address] [place] [address] PCP - General Family Medicine 01/10/17 King Orlando, DouglasD [address] [place] [address] Pharmacist Internal Medicine 10/02/23 documented as of this encounter
--- OUTSIDE RECORDS SUMMARY | 2025-07-07 20:14 | XMS_ITS | Encounter Summary ---
Author Organization [employer] Address [address] [facility] [address]t [place] [address] Care Team Providers Care Podiatry Professor Name Role Phone Yolanda Priest MD Primary Care Provider + King Orlando PharmD Unavailable [phone] Encounter Details Date Type Department Care Team (Late st Contact Info) Description 03/05/2025 Refill [facility] MEDICINE [address] [place], [place] [phone] Yolanda Priest MD [address] [place], [place] [phone] Type 2 diabetes mellitus with chronic kidney [...] Info) Description 07/16/2025 3:00 PM EST Telemedicine [facility] MEDICINE [address] [place] [address] King Orlando, PharmD [address] [place] [address] 10/18/2025 2:00 PM EDT Office Visit [facility] OPTOMETRY [address] [place] [address] Reyna Jara, OD [address] [place] [address] documented as of this encounter Goals Goal [...] documented as of this encounter Care Teams Podiatry Professor Relationship Specialty Start Date End Date Yolanda Priest MD [address] [place] [address] PCP - General Family Medicine 01/10/17 King Orlando, Aditi [address] [place] [address] Pharmacist Internal Medicine 10/02/23 documented as of this encounter
--- OUTSIDE RECORDS SUMMARY | 2025-07-07 20:14 | XMS_ITS | Encounter Summary ---
Author Organization [employer] Address [address] [facility] 7t [place] [address] Care Team Providers Care Technical Support Intern Name Role Phone Yolanda Priest MD Primary Care Provider + King Orlando PharmD Unavailable [phone] Reason for Visit * Reason Onset Date Comments Appointment Request 02/25/2025 Encounter Details Date Type Department Care Team ([facility] st Contact Info) Description 02/25/2025 Telephone [facility] MEDICINE [address] [place], [place] [phone] Yolanda Priest MD [address] [place], [place] [phone] Appointment Request Social History Tobacco Use Types [...] CDTM visit today. Please contact pt at [phone]. (Serbian Speaker) documented in this encounter Plan of Treatment Upcoming Encounters Date Type Department Care Team (Late st Contact Info) Description 07/16/2025 3:00 PM EST Telemedicine [facility] MEDICINE [address] [place] [address] King Orlando, PharmD [address] [place] [address] 10/18/2025 2:00 PM EDT Office Visit [facility] OPTOMETRY [address] [place] [address] Reyna Jara, OD [address] [place] [address] documented as of this encounter Goals Goal [...] documented as of this encounter Care Teams Technical Support Intern Relationship Specialty Start Date End Date Yolanda Priest MD [address] [place] [address] PCP - General Family Medicine 01/10/17 King Orlando PharmD [address] [place] [address] Pharmacist Internal Medicine 10/02/23 documented as of this encounter
== END 2025-07-07 13:44 | disposition home or self-care (01) ==
LOC: HO.HGI 13:05
PROVIDERS: PCP Internal Medicine; Visit Provider Nurse Practitioner Family
DX: Z86.19 Personal history of other infectious and parasitic diseases (principal); K21.9 Gastro-esophageal reflux disease without esophagitis; R13.12 Dysphagia, oropharyngeal phase; R10.13 Epigastric pain; R14.0 Abdominal distension (gaseous)
CPT/HCPCS: 99214; G2211

== ENCOUNTER → 2025-07-07 13:04 | Outpatient (BNVA) | payer OTHER, SELFPAY | PROVIDERS: PCP Internal Medicine; Visit Provider Nurse Practitioner Family | DX: K21.9 Gastro-esophageal reflux disease without esophagitis (principal); R13.12 Dysphagia, oropharyngeal phase; R10.13 Epigastric pain; R14.0 Abdominal distension (gaseous); Z79.899 Other long term (current) drug therapy; Z86.19 Personal history of other infectious and parasitic diseases | CPT/HCPCS: 99212 ==